=== PATIENT | male | born 1950 | race Caucasian/White ===

== ENCOUNTER 2019-08-16 08:10 | Outpatient (CLI) | payer MEDICARE, SELFPAY ==
--- NOTE | 2019-08-16 08:20 | MR_ITS ---
WS: [id number] MRI HEAD WITH CONTRAST TECHNIQUE: Sagittal T1, T2 axial, T2 axial FLAIR, axial susceptibility weighted imaging, axial diffus ion weighted images, and coronal T2 images were obtained. Pre and post-T1 axial and post T1 coronal i mages. ADC and FSPGR images. CLINICAL INFORMATION: FALL RISK;VERTIGO COMPARISON: CT 12 019 FINDINGS: No evidence of restricted diffusion to suggest acute ischemia. Ventricular system and basal cisterns are patent. Mild small vessel changes. Moderate parenchymal volume loss. Chronic lacunar infarcts lef t cerebellum. Normal vascular flow voids at the skull base. Paranasal sinuses are well aerated. Parti al opacification left mastoid air cells. Partially visualized T2 hyperintense heterogeneously enhancing mass in the right upper neck measuring 3.3 x 3.3 cm suspicious for neoplasm. Recommend further evaluation with contrast-enhanced neck CT. T his is deep and inferior to the parotid gland and only partially visualized. No hemosiderin on the susceptibly weighted images. Normal optic chiasm and pituitary infundibulum. No abnormal intracranial gadolinium enhancement. Normal visualized dural venous sinuses. Advanced atrop hy involving the temporal lobes and hippocampal formations. IMPRESSION: 1. Partially visualized T2 hyperintense heterogeneously enhancing mass in the right upper neck measu ring 3.3 x 3.3 cm suspicious for neoplasm. Recommend further evaluation with neck CT. This is deep an d inferior to the parotid gland. 2. No evidence of restricted diffusion to suggest acute ischemia. 3. Mild small vessel changes moderate parenchymal volume loss. 4. Chronic lacunar infarcts left cerebellum. 5. No abnormal intracranial enhancement. 6. 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
[2019-08-16 09:26] LABS: Blood Urea Nitrogen 17 mg/dL (8-23); Glomerular Filtration Rate 54.7 mL/min (90-130)
== END 2019-08-16 08:11 | disposition home or self-care (01) ==
PROVIDERS: Visit Provider Nurse Practitioner Family
DX: I63.81 Other cerebral infarction due to occlusion or stenosis of small artery (principal); G31.9 Degenerative disease of nervous system, unspecified; R42 Dizziness and giddiness; R22.1 Localized swelling, mass and lump, neck
CPT/HCPCS: 70553; 82565; 84520; A9579

== ENCOUNTER 2019-08-17 13:04 | Emergency (ER) | payer MEDICARE, SELFPAY ==
[2019-08-17] VITALS (111 sets, daily range): BP systolic 84–150; BP diastolic 54–119; PULSE 102–139; RESP 12–41; TEMP 36.4–36.9; O2SAT 79–100; BMI 26.6
--- NOTE | 2019-08-17 | CT_ITS ---
WS: [id number] CT scan of the head with IV contrast. Additional two-dimensional coronal and sagittal reconstruction was performed. MIP images were also performed. 08/17/2019 Clinical Data: EXPANDING NECK MASS R SIDE Comparison: None. DLP: 629.60 mGy-cm All CT scans at [facility] use at least one of these dose optimization techniques: automat ed exposure control; mA and/or kV adjustment per patient size (includes targeted exams where dose is matched to clinical indication); or iterative reconstruction. Findings: Ventricular system is moderately dilated without shift. No abnormal contrast enhancement of any struc ture occurs. No intracranial aneurysms are noted. There are no acute infarcts or enhancing masses. Th e intraorbital contents, sella turcica, and nasal sinuses, internal auditory canals and mastoid air c ells are unremarkable. Negative CT scan of the head with IV contrast. CT/CT angio head [id number] Impression:
--- NOTE | 2019-08-17 13:34 | ED_ITS ---
Entered by Portia Jones, acting as scribe for Andrea Beltran DO Documented by User: Andrea Beltran DO 08/21/19 06:56 HPI - Dizziness General: Chief Complaint: Dizziness Stated Complaint: dizzy, headache Time Seen by Provider: 08/17/19 13:50 Source: patient Mode of arrival: ambulatory Limitations: no limitations History of Present Illness: HPI Narrative: 69 yo m came to the er pov for dizziness and fall. Onset was yesterday. Pt states that yesterday he was trying to cut across a parking lot and went through a brush and tripped and fell and hit his neck. Pt has a mass that has grown on the side of his neck where he fell. PT states that it grew since this morning. Pt is denying any loc at this time. MD elicited complaint: dizziness Associated symptoms: Denies chest pain, chills, headache(s), malaise, nausea, nasal congestion, palpitations, syncope or vomiting Associated neuro symptoms: Deny confusion, difficulty swallowing or numbness in extremities Review of Systems Const: Reports: fatigue; Denies: chills or malaise Eyes: Denies: change in vision or blurry vision ENMT: Denies: nasal congestion Card: Denies: chest pain, palpitations or syncope Resp: Denies: shortness of breath, productive cough, non-productive cough or wheezing GI: Denies: nausea, vomiting or difficulty swallowing : Denies: flank pain, difficulty urinating, painful urination, urinary frequency, urinary urgency, urinary incontinence or blood in urine Musc: Denies: neck pain, back pain, extremity pain, extremity swelling, joint pain or joint swelling Skin/Breast: Denies: rash, itching or redness Neuro: Denies: headache, numbness in extremities or confusion Psych: Denies: anxiety, depression, loss of interest, visual hallucinations, auditory hallucinations, suicidal ideation or homicidal ideation Endo: Denies: excessive urination, excessive thirst, tired all the time or cold intolerance Angel/Lymph: Denies: easy bruising, easy bleeding, petechiae, enlarged lymph nodes or tender lymph nodes PFSH ED PFSH: Statuses (acute, chronic, etc) shown below reflect problem list status as previously entered and may not be historically accurate Social History Smoking and tobacco status: never smoked Physical Exam Const: COMMON NORMALS: average body habitus GENERAL APPEARANCE: cooperative, comfortable, well kempt, well developed and lethargic (reponds to questions but is not making fully coherent answers, disoriented) NUTRITIONAL APPEARANCE: obese ORIENTATION/CONSCIOUSNESS: Yes awake and Yes lethargic (reponds to questions but is not making fully coherent answers, disoriented) HENMT: COMMON NORMALS: normocephalic, head/scalp atraumatic, EAC's normal, TM's normal bilaterally, external nose normal, moist oral mucous membranes and oropharynx normal HEAD & SCALP: normocephalic and atraumatic NOSE: external nose normal EXTERNAL AUDITORY CANAL: EAC's normal TYMPANIC MEMBRANE: TM's normal bilaterally MOUTH: oral and palatal mucosa normal, lip normal and tongue normal THROAT: posterior oropharynx normal and tonsils normal Eye: COMMON NORMALS: PERRL, EOMs intact bilaterally, conjunctivae normal and no scleral icterus CONJUNCTIVA: Yes conjunctivae normal PUPIL: Yes PERRL Neck/C-Spine: COMMON NORMALS: no lymphadenopathy, no meningeal signs and thyroid normal; negative for full ROM GENERAL: Yes tender and Yes mass right (lateral within the sternocliedomastiod muscle - extends to the mastiod process. On palpation is 4 inches in length, 3 inches width, no overlying ecchymosis, no skin abrasions.) THYROID: thyroid normal Lymph: LYMPHATIC: no lymphadenopathy noted Resp: COMMON NORMALS: normal respiratory effort, no retractions, no use of accessory muscles and clear to auscultation bilaterally AUSCULTATION: clear to auscultation bilaterally Cardio: COMMON NORMALS: regular rate and regular rhythm RATE: regular rate RHYTHM: regular rhythm HEART SOUNDS: no murmurs GI: COMMON NORMALS: normal to inspection, nondistended, normoactive bowel sounds, soft to palpation and no hepatosplenomegaly PALPATION: Yes soft and Yes no hepatosplenomegaly : COMMON NORMALS: Yes no CVA tenderness BLADDER/KIDNEY EXAM: Yes no CVA tenderness Back/Pelvis: COMMON NORMALS: no CVA tenderness LUMBAR SPINE/LOWER BACK: Yes normal to inspection Extremity: COMMON NORMALS: no clubbing, cyanosis or edema, no calf tenderness and no pedal edema Neuro: SENSORIUM/ORIENTATION: Yes lethargic (reponds to questions but is not making fully coherent answers, disoriented) and Yes somnolent MENINGEAL SIGNS: Yes no meningeal signs MOTOR EXAM: no pronator drift Psych: APPEARANCE: Yes well kempt Skin: COMMON NORMALS: no rashes or lesions noted and skin turgor normal GENERAL SKIN EXAM: no rashes or lesions noted and turgor normal Course ED course: 08/19/19 1031 Assumed care again of this patient this morning. Reviewed the labs done this morning there is still slight improvement. I did call and talk to Dr. Domingo and asked her to see the patient again in the ER on rounds. Patient became tachycardic and found that he had not received a daily medications Dr. Domingo had ordered. Due to the setting here in the emergency room the medications are not coming across to the nurses as they would on the floor. Reviewed this with the nurses we will get him started back on medications particularly the nadolol. Repeat EKG showed a sinus tachycardia with a rate of [address] nonspecific changes. Patient's hematoma is largely unchanged on exam his chest clear he is tachycardic but without appre ciable murmur. I have also called Dr. Guo and talk to the chief of medicine. Unfortunately they are still not able to give us confirmation of an ICU bed. Discussed other options with her chief of medicine where he would be able to have his hepatic failure addressed they recommended [facility]. At this point he has been in the emergency room for 48 hours with been able to manage with the assistance of the hospitalist however he does need to get to definitive care. Unfortunately due to lack of available resources in the region this is become quite difficult. Consultations: Consultation #1: talked to [facility] - they will accept pt but they have no avaiable beds at this time. 08/18/19 - Pt still waiting in the ER for a bed at [facility]. Labs repeated. Will ask hospitlaist to consult, Time: 15:07 Vital Signs: Vital signs: Vital Signs Temperature 98.6 F 08/19/19 06:30 Pulse Rate 94 08/20/19 08:03 Respiratory Rate 16 08/20/19 08:03 Blood Pressure 168/120 08/20/19 08:03 Pulse Oximetry 97 08/20/19 08:03 MDM - Dizziness Lab Data: Labs: Lab Results 08/17/19 08/17/19 08/17/19 Range/Units 13:49 13:49 13:49 WBC 22.2 H (4.0-10.0) 10^3/ uL RBC 5.04 (4.1-5.3) 10^6/u L Hgb 16.1 (11.7-16.6) g/dL Hct 49.4 (42.0-52.0) % MCV 98.0 H (80-94) fL MCH 31.9 (28.0-34.0) pg MCHC 32.6 (30.0-36.0) g/dL RDW 15.0 (12.1-15.1) % Plt Count 310 (130-400) 10^3/c mm MPV 9.3 (7.4-10.4) fL Neut % (Auto) 75.7 % Lymph % (Auto) 4.3 % [place] % (Auto) 1.8 % Eos % (Auto) 0.0 % Baso % (Auto) 0.4 % Neut # (Auto) 16.9 H (1.8-7.7) 10^3/u L Lymph # (Auto) 1.0 (0.8-4.8) 10^3/u L [place] # (Auto) 0.4 (0.2-0.9) 10^3/u L Eos # (Auto) 0.0 (0.0-0.8) 10^3/u L Baso # (Auto) 0.1 (0.0-0.1) 10^3/u L Nucleated RBC % (a uto) 0 % Total Counted (0-100) Segmented Neutroph ils % Band Neutrophils % Lymphocytes (Manua l) % Monocytes (Manual) % Absolute Monocytes (0.1-0.6) 10^3/c mm Nucleated RBCs # 0.0 /100WBC Platelet Estimate (Normal) PT 32.90 H (10.5-13.3) SECO NDS INR 3.07 H (0.8-1.2) APTT 34.7 (23.9-36.7) SECO NDS Specimen Type Sample Site ABG pH (7.35-7.45) ABG pCO2 (35-45) mmHg ABG pO2 (80.0-100.0) mmH g ABG HCO3 (22-26) mmol/L ABG Base Excess (-2.0-2.0) mmol/ L Rudy Test Hematocrit (42-52) % Hgb O2 Saturation (95-100) % Carboxyhemoglobin (0.4-20.1) %THgb Methemoglobin (0.4-1.5) % Total Hemoglobin (14-18) g/dL [employer] ID Sodium 132 L (136-145) mmol/L Potassium 5.4 H (3.5-5.1) mmol/L Chloride 95 L (98-107) mmol/L Carbon Dioxide 16 L (22-29) mmol/L Anion Gap 26.4 H (5-19) BUN 29 H (8-23) mg/dL Creatinine 2.2 H (0.7-1.2) mg/dL GFR Calculation 29.8 L (90-130) mL/min Glucose 98 (74-106) mg/dL POC Glucose (70-110) mg/dL Lactate (0.5-2.2) mmol/L Calcium 10.1 (8.8-10.2) mg/Dl Phosphorus (2.5-4.5) mg/dL Magnesium (1.7-2.3) mg/dL Total Bilirubin 2.3 H (0.15-1.2) mg/dL AST 3162 H (0-40) U/L ALT 3118 H (0-41) U/L Alkaline Phosphata se 228 H (40-130) IU/L Ammonia (16-60) umol/L Troponin I 6 Hour (0-15) ng/L Troponin I Hi Sens Del (0-12) ng/L Troponin T Baselin e (0-15) ng/mL Troponin T 120 Min [place] (0-15) ng/mL Delta Troponin T (0-10) ABS# Total Protein 7.2 (6.6-8.7) g/dL Albumin 3.5 (3.5-5.2) g/dL Globulin 3.7 (1.3-4.6) g/dL Urine Color (Yellow) Urine Appearance (CLEAR) Urine pH (5-7) Ur Specific Gravit y (1.005-1.030) Urine Protein (Negative) Urine Glucose (UA) (Normal) Urine Ketones (Negative) Urine Occult Blood (Negative) Urine Nitrate (Negative) Urine Bilirubin (NEGATIVE) Urine Urobilinogen (Negative) mg/dL Ur Leukocyte Carol ase (Negative) Urine RBC (0-2) /hpf Urine WBC (0-5) /hpf Ur Squamous Epith Cells (0-5) Urine Bacteria (NONE) Hepatitis A IgM Ab (Nonreactive) Hep Bs Antibody (0-8.5) Hep B Core Total A b (Nonreactive) Hepatitis C Antibo dy (Nonreactive) Blood Type 08/17/19 08/17/19 08/17/19 Range/Units 13:49 13:49 13:49 WBC (4.0-10.0) 10^3/ uL RBC (4.1-5.3) 10^6/u L Hgb (11.7-16.6) g/dL Hct (42.0-52.0) % MCV (80-94) fL MCH (28.0-34.0) pg MCHC (30.0-36.0) g/dL RDW (12.1-15.1) % Plt Count (130-400) 10^3/c mm MPV (7.4-10.4) fL Neut % (Auto) % Lymph % (Auto) % [place] % (Auto) % Eos % (Auto) % Baso % (Auto) % Neut # (Auto) (1.8-7.7) 10^3/u L Lymph # (Auto) (0.8-4.8) 10^3/u L [place] # (Auto) (0.2-0.9) 10^3/u L Eos # (Auto) (0.0-0.8) 10^3/u L Baso # (Auto) (0.0-0.1) 10^3/u L Nucleated RBC % (a uto) % Total Counted (0-100) Segmented Neutroph ils % Band Neutrophils % Lymphocytes (Manua l) % Monocytes (Manual) % Absolute Monocytes (0.1-0.6) 10^3/c mm Nucleated RBCs # /100WBC Platelet Estimate (Normal) PT (10.5-13.3) SECO NDS INR (0.8-1.2) APTT (23.9-36.7) SECO NDS Specimen Type Sample Site ABG pH (7.35-7.45) ABG pCO2 (35-45) mmHg ABG pO2 (80.0-100.0) mmH g ABG HCO3 (22-26) mmol/L ABG Base Excess (-2.0-2.0) mmol/ L Rudy Test Hematocrit (42-52) % Hgb O2 Saturation (95-100) % Carboxyhemoglobin (0.4-20.1) %THgb Methemoglobin (0.4-1.5) % Total Hemoglobin (14-18) g/dL [employer] ID Sodium (136-145) mmol/L Potassium (3.5-5.1) mmol/L Chloride (98-107) mmol/L Carbon Dioxide (22-29) mmol/L Anion Gap (5-19) BUN (8-23) mg/dL Creatinine (0.7-1.2) mg/dL GFR Calculation (90-130) mL/min Glucose (74-106) mg/dL POC Glucose (70-110) mg/dL Lactate 8.5 H* (0.5-2.2) mmol/L Calcium (8.8-10.2) mg/Dl Phosphorus (2.5-4.5) mg/dL Magnesium (1.7-2.3) mg/dL Total Bilirubin (0.15-1.2) mg/dL AST (0-40) U/L ALT (0-41) U/L Alkaline Phosphata se (40-130) IU/L Ammonia (16-60) umol/L Troponin I 6 Hour (0-15) ng/L Troponin I Hi Sens Del (0-12) ng/L Troponin T Baselin e 11 (0-15) ng/mL Troponin T 120 Min [place] (0-15) ng/mL Delta Troponin T (0-10) ABS# Total Protein (6.6-8.7) g/dL Albumin (3.5-5.2) g/dL Globulin (1.3-4.6) g/dL Urine Color (Yellow) Urine Appearance (CLEAR) Urine pH (5-7) Ur Specific Gravit y (1.005-1.030) Urine Protein (Negative) Urine Glucose (UA) (Normal) Urine Ketones (Negative) Urine Occult Blood (Negative) Urine Nitrate (Negative) Urine Bilirubin (NEGATIVE) Urine Urobilinogen (Negative) mg/dL Ur Leukocyte Carol ase (Negative) Urine RBC (0-2) /hpf Urine WBC (0-5) /hpf Ur Squamous Epith Cells (0-5) Urine Bacteria (NONE) Hepatitis A IgM Ab Non-reactive (Nonreactive) Hep Bs Antibody 3.5 (0-8.5) Hep B Core Total A b Reactive (Nonreactive) Hepatitis C Antibo dy Non-reactive (Nonreactive) Blood Type 08/17/19 08/17/19 08/17/19 Range/Units 15:37 15:54 16:36 WBC (4.0-10.0) 10^3/ uL RBC (4.1-5.3) 10^6/u L Hgb (11.7-16.6) g/dL Hct (42.0-52.0) % MCV (80-94) fL MCH (28.0-34.0) pg MCHC (30.0-36.0) g/dL RDW (12.1-15.1) % Plt Count (130-400) 10^3/c mm MPV (7.4-10.4) fL Neut % (Auto) % Lymph % (Auto) % [place] % (Auto) % Eos % (Auto) % Baso % (Auto) % Neut # (Auto) (1.8-7.7) 10^3/u L Lymph # (Auto) (0.8-4.8) 10^3/u L [place] # (Auto) (0.2-0.9) 10^3/u L Eos # (Auto) (0.0-0.8) 10^3/u L Baso # (Auto) (0.0-0.1) 10^3/u L Nucleated RBC % (a uto) % Total Counted (0-100) Segmented Neutroph ils % Band Neutrophils % Lymphocytes (Manua l) % Monocytes (Manual) % Absolute Monocytes (0.1-0.6) 10^3/c mm Nucleated RBCs # /100WBC Platelet Estimate (Normal) PT (10.5-13.3) SECO NDS INR (0.8-1.2) APTT (23.9-36.7) SECO NDS Specimen Type Sample Site ABG pH (7.35-7.45) ABG pCO2 (35-45) mmHg ABG pO2 (80.0-100.0) mmH g ABG HCO3 (22-26) mmol/L ABG Base Excess (-2.0-2.0) mmol/ L Rudy Test Hematocrit (42-52) % Hgb O2 Saturation (95-100) % Carboxyhemoglobin (0.4-20.1) %THgb Methemoglobin (0.4-1.5) % Total Hemoglobin (14-18) g/dL [employer] ID Sodium (136-145) mmol/L Potassium (3.5-5.1) mmol/L Chloride (98-107) mmol/L Carbon Dioxide (22-29) mmol/L Anion Gap (5-19) BUN (8-23) mg/dL Creatinine (0.7-1.2) mg/dL GFR Calculation (90-130) mL/min Glucose (74-106) mg/dL POC Glucose (70-110) mg/dL Lactate (0.5-2.2) mmol/L Calcium (8.8-10.2) mg/Dl Phosphorus (2.5-4.5) mg/dL Magnesium (1.7-2.3) mg/dL Total Bilirubin (0.15-1.2) mg/dL AST (0-40) U/L ALT (0-41) U/L Alkaline Phosphata se (40-130) IU/L Ammonia 108 H (16-60) umol/L Troponin I 6 Hour (0-15) ng/L Troponin I Hi Sens Del (0-12) ng/L Troponin T Baselin e (0-15) ng/mL Troponin T 120 [place] 10.56 (0-15) ng/mL Delta Troponin T -0.44 L (0-10) ABS# Total Protein (6.6-8.7) g/dL Albumin (3.5-5.2) g/dL Globulin (1.3-4.6) g/dL Urine Color (Yellow) Urine Appearance (CLEAR) Urine pH (5-7) Ur Specific Gravit y (1.005-1.030) Urine Protein (Negative) Urine Glucose (UA) (Normal) Urine Ketones (Negative) Urine Occult Blood (Negative) Urine Nitrate (Negative) Urine Bilirubin (NEGATIVE) Urine Urobilinogen (Negative) mg/dL Ur Leukocyte Carol ase (Negative) Urine RBC (0-2) /hpf Urine WBC (0-5) /hpf Ur Squamous Epith Cells (0-5) Urine Bacteria (NONE) Hepatitis A IgM Ab (Nonreactive) Hep Bs Antibody (0-8.5) Hep B Core Total A b (Nonreactive) Hepatitis C Antibo dy (Nonreactive) Blood Type O Negative 08/17/19 08/18/19 08/18/19 Range/Units 19:24 06:33 06:47 WBC 10.6 H (4.0-10.0) 10^3/ uL RBC 4.16 (4.1-5.3) 10^6/u L Hgb 13.2 (11.7-16.6) g/dL Hct 40.3 L (42.0-52.0) % MCV 96.9 H (80-94) fL MCH 31.7 (28.0-34.0) pg MCHC 32.8 (30.0-36.0) g/dL RDW 15.3 H (12.1-15.1) % Plt Count 246 (130-400) 10^3/c mm MPV 9.1 (7.4-10.4) fL Neut % (Auto) 54.2 % Lymph % (Auto) 9.6 % [place] % (Auto) 3.8 % Eos % (Auto) 0.6 % Baso % (Auto) 0.6 % Neut # (Auto) 5.8 (1.8-7.7) 10^3/u L Lymph # (Auto) 1.0 (0.8-4.8) 10^3/u L [place] # (Auto) 0.4 (0.2-0.9) 10^3/u L Eos # (Auto) 0.1 (0.0-0.8) 10^3/u L Baso # (Auto) 0.1 (0.0-0.1) 10^3/u L Nucleated RBC % (a uto) 0 % Total Counted (0-100) Segmented Neutroph ils % Band Neutrophils % Lymphocytes (Man[place] l) % Monocytes (Manual) % Absolute Monocytes (0.1-0.6) 10^3/c mm Nucleated RBCs # 0.0 /100WBC Platelet Estimate (Normal) PT (10.5-13.3) SECO NDS INR (0.8-1.2) APTT (23.9-36.7) SECO NDS Specimen Type Arterial Sample Site Radial, left ABG pH 7.43 (7.35-7.45) ABG pCO2 31.6 L (35-45) mmHg ABG pO2 75.5 L (80.0-100.0) mmH g ABG HCO3 20.9 L (22-26) mmol/L ABG Base Excess -2.5 L (-2.0-2.0) mmol/ L Rudy Test Pos Hematocrit 44.1 (42-52) % Hgb O2 Saturation 93.9 L (95-100) % Carboxyhemoglobin 0.6 (0.4-20.1) %THgb Methemoglobin 0.8 (0.4-1.5) % Total Hemoglobin 14.4 (14-18) g/dL [employer] ID harkr Sodium (136-145) mmol/L Potassium (3.5-5.1) mmol/L Chloride (98-107) mmol/L Carbon Dioxide (22-29) mmol/L Anion Gap (5-19) BUN (8-23) mg/dL Creatinine (0.7-1.2) mg/dL GFR Calculation (90-130) mL/min Glucose (74-106) mg/dL POC Glucose (70-110) mg/dL Lactate (0.5-2.2) mmol/L Calcium (8.8-10.2) mg/Dl Phosphorus (2.5-4.5) mg/dL Magnesium (1.7-2.3) mg/dL Total Bilirubin (0.15-1.2) mg/dL AST (0-40) U/L ALT (0-41) U/L Alkaline Phosphata se (40-130) IU/L Ammonia (16-60) umol/L Troponin I 6 Hour 10.86 (0-15) ng/L Troponin I Hi Sens Del (0-12) ng/L Troponin T Baselin e (0-15) ng/mL Troponin T 120 [place] (0-15) ng/mL Delta Troponin T (0-10) ABS# Total Protein (6.6-8.7) g/dL Albumin (3.5-5.2) g/dL Globulin (1.3-4.6) g/dL Urine Color (Yellow) Urine Appearance (CLEAR) Urine pH (5-7) Ur Specific Gravit y (1.005-1.030) Urine Protein (Negative) Urine Glucose (UA) (Normal) Urine Ketones (Negative) Urine Occult Blood (Negative) Urine Nitrate (Negative) Urine Bilirubin (NEGATIVE) Urine Urobilinogen (Negative) mg/dL Ur Leukocyte Carol ase (Negative) Urine RBC (0-2) /hpf Urine WBC (0-5) /hpf Ur Squamous Epith Cells (0-5) Urine Bacteria (NONE) Hepatitis A IgM Ab (Nonreactive) Hep Bs Antibody (0-8.5) Hep B Core Total A b (Nonreactive) Hepatitis C Antibo dy (Nonreactive) Blood Type 08/18/19 08/18/19 08/18/19 Range/Units 06:47 06:47 06:47 WBC (4.0-10.0) 10^3/ uL RBC (4.1-5.3) 10^6/u L Hgb (11.7-16.6) g/dL Hct (42.0-52.0) % MCV (80-94) fL MCH (28.0-34.0) pg MCHC (30.0-36.0) g/dL RDW (12.1-15.1) % Plt Count (130-400) 10^3/c mm MPV (7.4-10.4) fL Neut % (Auto) % Lymph % (Auto) % [place] % (Auto) % Eos % (Auto) % Baso % (Auto) % Neut # (Auto) (1.8-7.7) 10^3/u L Lymph # (Auto) (0.8-4.8) 10^3/u L [place] # (Auto) (0.2-0.9) 10^3/u L Eos # (Auto) (0.0-0.8) 10^3/u L Baso # (Auto) (0.0-0.1) 10^3/u L Nucleated RBC % (a uto) % Total Counted (0-100) Segmented Neutroph ils % Band Neutrophils % Lymphocytes (Man[place] l) % Monocytes (Manual) % Absolute Monocytes (0.1-0.6) 10^3/c mm Nucleated RBCs # /100WBC Platelet Estimate (Normal) PT (10.5-13.3) SECO NDS INR (0.8-1.2) APTT (23.9-36.7) SECO NDS Specimen Type Sample Site ABG pH (7.35-7.45) ABG pCO2 (35-45) mmHg ABG pO2 (80.0-100.0) mmH g ABG HCO3 (22-26) mmol/L ABG Base Excess (-2.0-2.0) mmol/ L Rudy Test Hematocrit (42-52) % Hgb O2 Saturation (95-100) % Carboxyhemoglobin (0.4-20.1) %THgb Methemoglobin (0.4-1.5) % Total Hemoglobin (14-18) g/dL [employer] ID Sodium 137 (136-145) mmol/L Potassium 4.4 (3.5-5.1) mmol/L Chloride 105 (98-107) mmol/L Carbon Dioxide 19 L (22-29) mmol/L Anion Gap 17.4 (5-19) BUN 38 H (8-23) mg/dL Creatinine 1.8 H (0.7-1.2) mg/dL GFR Calculation 37.6 L (90-130) mL/min Glucose 66 L (74-106) mg/dL POC Glucose (70-110) mg/dL Lactate 3.2 H (0.5-2.2) mmol/L Calcium 9.4 (8.8-10.2) mg/Dl Phosphorus 3.3 (2.5-4.5) mg/dL Magnesium 2.1 (1.7-2.3) mg/dL Total Bilirubin 2.4 H (0.15-1.2) mg/dL AST 1015 H (0-40) U/L ALT 1632 H (0-41) U/L Alkaline Phosphata se 193 H (40-130) IU/L Ammonia 109 H (16-60) umol/L Troponin I 6 Hour (0-15) ng/L Troponin I Hi Sens Del (0-12) ng/L Troponin T Baselin e (0-15) ng/mL Troponin T 120 [place] (0-15) ng/mL Delta Troponin T (0-10) ABS# Total Protein 6.2 L (6.6-8.7) g/dL Albumin 3.0 L (3.5-5.2) g/dL Globulin 3.2 (1.3-4.6) g/dL Urine Color (Yellow) Urine Appearance (CLEAR) Urine pH (5-7) Ur Specific Gravit y (1.005-1.030) Urine Protein (Negative) Urine Glucose (UA) (Normal) Urine Ketones (Negative) Urine Occult Blood (Negative) Urine Nitrate (Negative) Urine Bilirubin (NEGATIVE) Urine Urobilinogen (Negative) mg/dL Ur Leukocyte Carol ase (Negative) Urine RBC (0-2) /hpf Urine WBC (0-5) /hpf Ur Squamous Epith Cells (0-5) Urine Bacteria (NONE) Hepatitis A IgM Ab (Nonreactive) Hep Bs Antibody (0-8.5) Hep B Core Total A b (Nonreactive) Hepatitis C Antibo dy (Nonreactive) Blood Type 08/18/19 08/18/19 08/18/19 Range/Units 06:47 08:00 20:22 WBC (4.0-10.0) 10^3/ uL RBC (4.1-5.3) 10^6/u L Hgb (11.7-16.6) g/dL Hct (42.0-52.0) % MCV (80-94) fL MCH (28.0-34.0) pg MCHC (30.0-36.0) g/dL RDW (12.1-15.1) % Plt Count (130-400) 10^3/c mm MPV (7.4-10.4) fL Neut % (Auto) % Lymph % (Auto) % [place] % (Auto) % Eos % (Auto) % Baso % (Auto) % Neut # (Auto) (1.8-7.7) 10^3/u L Lymph # (Auto) (0.8-4.8) 10^3/u L [place] # (Auto) (0.2-0.9) 10^3/u L Eos # (Auto) (0.0-0.8) 10^3/u L Baso # (Auto) (0.0-0.1) 10^3/u L Nucleated RBC % (a uto) % Total Counted (0-100) Segmented Neutroph ils % Band Neutrophils % Lymphocytes (Man[place] l) % Monocytes (Manual) % Absolute Monocytes (0.1-0.6) 10^3/c mm Nucleated RBCs # /100WBC Platelet Estimate (Normal) PT 28.00 H (10.5-13.3) SECO NDS INR 2.50 H (0.8-1.2) APTT 35.1 (23.9-36.7) SECO NDS Specimen Type Sample Site ABG pH (7.35-7.45) ABG pCO2 (35-45) mmHg ABG pO2 (80.0-100.0) mmH g ABG HCO3 (22-26) mmol/L ABG Base Excess (-2.0-2.0) mmol/ L Rudy Test Hematocrit (42-52) % Hgb O2 Saturation (95-100) % Carboxyhemoglobin (0.4-20.1) %THgb Methemoglobin (0.4-1.5) % Total Hemoglobin (14-18) g/dL [employer] ID Sodium (136-145) mmol/L Potassium (3.5-5.1) mmol/L Chloride (98-107) mmol/L Carbon Dioxide (22-29) mmol/L Anion Gap (5-19) BUN (8-23) mg/dL Creatinine (0.7-1.2) mg/dL GFR Calculation (90-130) mL/min Glucose (74-106) mg/dL POC Glucose 101 (70-110) mg/dL Lactate (0.5-2.2) mmol/L Calcium (8.8-10.2) mg/Dl Phosphorus (2.5-4.5) mg/dL Magnesium (1.7-2.3) mg/dL Total Bilirubin (0.15-1.2) mg/dL AST (0-40) U/L ALT (0-41) U/L Alkaline Phosphata se (40-130) IU/L Ammonia (16-60) umol/L Troponin I 6 Hour (0-15) ng/L Troponin I Hi Sens Del (0-12) ng/L Troponin T Baselin e (0-15) ng/mL Troponin T 120 Min [place] (0-15) ng/mL Delta Troponin T (0-10) ABS# Total Protein (6.6-8.7) g/dL Albumin (3.5-5.2) g/dL Globulin (1.3-4.6) g/dL Urine Color Yellow (Yellow) Urine Appearance Clear (CLEAR) Urine pH 5.0 (5-7) Ur Specific Gravit y 1.010 (1.005-1.030) Urine Protein Trace (Negative) Urine Glucose (UA) Norm (Normal) Urine Ketones Negative (Negative) Urine Occult Blood Neg (Negative) Urine Nitrate Negative (Negative) Urine Bilirubin 1+ H (NEGATIVE) Urine Urobilinogen Norm (Negative) mg/dL Ur Leukocyte Carol ase Negative (Negative) Urine RBC Rare (0-2) /hpf Urine WBC None (0-5) /hpf Ur Squamous Epith Cells None (0-5) Urine Bacteria 1+ H (NONE) Hepatitis A IgM Ab (Nonreactive) Hep Bs Antibody (0-8.5) Hep B Core Total A b (Nonreactive) Hepatitis C Antibo dy (Nonreactive) Blood Type 08/19/19 08/19/19 08/19/19 Range/Units 02:40 02:40 02:40 WBC 12.7 H (4.0-10.0) 10^3/ uL RBC 4.20 (4.1-5.3) 10^6/u L Hgb 13.5 (11.7-16.6) g/dL Hct 41.7 L (42.0-52.0) % MCV 99.3 H (80-94) fL MCH 32.1 (28.0-34.0) pg MCHC 32.4 (30.0-36.0) g/dL RDW 15.2 H (12.1-15.1) % Plt Count 213 (130-400) 10^3/c mm MPV 9.0 (7.4-10.4) fL Neut % (Auto) % Lymph % (Auto) % [place] % (Auto) % Eos % (Auto) % Baso % (Auto) % Neut # (Auto) (1.8-7.7) 10^3/u L Lymph # (Auto) (0.8-4.8) 10^3/u L [place] # (Auto) (0.2-0.9) 10^3/u L Eos # (Auto) (0.0-0.8) 10^3/u L Baso # (Auto) (0.0-0.1) 10^3/u L Nucleated RBC % (a uto) % Total Counted 100 (0-100) Segmented Neutroph ils 70 % Band Neutrophils 4.0 % Lymphocytes ([place]) 24 % Monocytes (Manual) 2.0 % Absolute Monocytes 0.3 (0.1-0.6) 10^3/c mm Nucleated RBCs # /100WBC Platelet Estimate Decreased (Normal) PT 26.30 H (10.5-13.3) SECO NDS INR 2.32 H (0.8-1.2) APTT (23.9-36.7) SECO NDS Specimen Type Sample Site ABG pH (7.35-7.45) ABG pCO2 (35-45) mmHg ABG pO2 (80.0-100.0) mmH g ABG HCO3 (22-26) mmol/L ABG Base Excess (-2.0-2.0) mmol/ L Rudy Test Hematocrit (42-52) % Hgb O2 Saturation (95-100) % Carboxyhemoglobin (0.4-20.1) %THgb Methemoglobin (0.4-1.5) % Total Hemoglobin (14-18) g/dL [employer] ID Sodium 136 (136-145) mmol/L Potassium 3.9 (3.5-5.1) mmol/L Chloride 105 (98-107) mmol/L Carbon Dioxide 20 L (22-29) mmol/L Anion Gap 14.9 (5-19) BUN 49 H (8-23) mg/dL Creatinine 1.4 H (0.7-1.2) mg/dL GFR Calculation 50.2 L (90-130) mL/min Glucose 93 (74-106) mg/dL POC Glucose (70-110) mg/dL Lactate (0.5-2.2) mmol/L Calcium 9.4 (8.8-10.2) mg/Dl Phosphorus (2.5-4.5) mg/dL Magnesium (1.7-2.3) mg/dL Total Bilirubin 2.0 H (0.15-1.2) mg/dL AST 299 H (0-40) U/L ALT 1074 H (0-41) U/L Alkaline Phosphata se 270 H (40-130) IU/L Ammonia (16-60) umol/L Troponin I 6 Hour (0-15) ng/L Troponin I Hi Sens Del (0-12) ng/L Troponin T Baselin e (0-15) ng/mL Troponin T 120 Min [place] (0-15) ng/mL Delta Troponin T (0-10) ABS# Total Protein 6.6 (6.6-8.7) g/dL Albumin 2.7 L (3.5-5.2) g/dL Globulin 3.9 (1.3-4.6) g/dL Urine Color (Yellow) Urine Appearance (CLEAR) Urine pH (5-7) Ur Specific Gravit y (1.005-1.030) Urine Protein (Negative) Urine Glucose (UA) (Normal) Urine Ketones (Negative) Urine Occult Blood (Negative) Urine Nitrate (Negative) Urine Bilirubin (NEGATIVE) Urine Urobilinogen (Negative) mg/dL Ur Leukocyte Carol ase (Negative) Urine RBC (0-2) /hpf Urine WBC (0-5) /hpf Ur Squamous Epith Cells (0-5) Urine Bacteria (NONE) Hepatitis A IgM Ab (Nonreactive) Hep Bs Antibody (0-8.5) Hep B Core Total A b (Nonreactive) Hepatitis C Antibo dy (Nonreactive) Blood Type 08/19/19 08/19/19 08/19/19 Range/Units 02:40 10:18 12:21 WBC (4.0-10.0) 10^3/ uL RBC (4.1-5.3) 10^6/u L Hgb (11.7-16.6) g/dL Hct (42.0-52.0) % MCV (80-94) fL MCH (28.0-34.0) pg MCHC (30.0-36.0) g/dL RDW (12.1-15.1) % Plt Count (130-400) 10^3/c mm MPV (7.4-10.4) fL Neut % (Auto) % Lymph % (Auto) % [place] % (Auto) % Eos % (Auto) % Baso % (Auto) % Neut # (Auto) (1.8-7.7) 10^3/u L Lymph # (Auto) (0.8-4.8) 10^3/u L [place] # (Auto) (0.2-0.9) 10^3/u L Eos # (Auto) (0.0-0.8) 10^3/u L Baso # (Auto) (0.0-0.1) 10^3/u L Nucleated RBC % (a uto) % Total Counted (0-100) Segmented Neutroph ils % Band Neutrophils % Lymphocytes (Manua l) % Monocytes (Manual) % Absolute Monocytes (0.1-0.6) 10^3/c mm Nucleated RBCs # /100WBC Platelet Estimate (Normal) PT (10.5-13.3) SECO NDS INR (0.8-1.2) APTT (23.9-36.7) SECO NDS Specimen Type Sample Site ABG pH (7.35-7.45) ABG pCO2 (35-45) mmHg ABG pO2 (80.0-100.0) mmH g ABG HCO3 (22-26) mmol/L ABG Base Excess (-2.0-2.0) mmol/ L Rudy Test Hematocrit (42-52) % Hgb O2 Saturation (95-100) % Carboxyhemoglobin (0.4-20.1) %THgb Methemoglobin (0.4-1.5) % Total Hemoglobin (14-18) g/dL [employer] ID Sodium (136-145) mmol/L Potassium (3.5-5.1) mmol/L Chloride (98-107) mmol/L Carbon Dioxide (22-29) mmol/L Anion Gap (5-19) BUN (8-23) mg/dL Creatinine (0.7-1.2) mg/dL GFR Calculation (90-130) mL/min Glucose (74-106) mg/dL POC Glucose (70-110) mg/dL Lactate (0.5-2.2) mmol/L Calcium (8.8-10.2) mg/Dl Phosphorus (2.5-4.5) mg/dL Magnesium (1.7-2.3) mg/dL Total Bilirubin (0.15-1.2) mg/dL AST (0-40) U/L ALT (0-41) U/L Alkaline Phosphata se (40-130) IU/L Ammonia 96 H (16-60) umol/L Troponin I 6 Hour (0-15) ng/L Troponin I Hi Sens Del (0-12) ng/L Troponin T Baselin e 14 (0-15) ng/mL Troponin T 120 [place] 14.67 (0-15) ng/mL Delta Troponin T 0.67 (0-10) ABS# Total Protein (6.6-8.7) g/dL Albumin (3.5-5.2) g/dL Globulin (1.3-4.6) g/dL Urine Color (Yellow) Urine Appearance (CLEAR) Urine pH (5-7) Ur Specific Gravit y (1.005-1.030) Urine Protein (Negative) Urine Glucose (UA) (Normal) Urine Ketones (Negative) Urine Occult Blood (Negative) Urine Nitrate (Negative) Urine Bilirubin (NEGATIVE) Urine Urobilinogen (Negative) mg/dL Ur Leukocyte Carol ase (Negative) Urine RBC (0-2) /hpf Urine WBC (0-5) /hpf Ur Squamous Epith Cells (0-5) Urine Bacteria (NONE) Hepatitis A IgM Ab (Nonreactive) Hep Bs Antibody (0-8.5) Hep B Core Total A b (Nonreactive) Hepatitis C Antibo dy (Nonreactive) Blood Type 08/19/19 Range/Units 16:15 WBC (4.0-10.0) 10^3/ uL RBC (4.1-5.3) 10^6/u L Hgb (11.7-16.6) g/dL Hct (42.0-52.0) % MCV (80-94) fL MCH (28.0-34.0) pg MCHC (30.0-36.0) g/dL RDW (12.1-15.1) % Plt Count (130-400) 10^3/c mm MPV (7.4-10.4) fL Neut % (Auto) % Lymph % (Auto) % [place] % (Auto) % Eos % (Auto) % Baso % (Auto) % Neut # (Auto) (1.8-7.7) 10^3/u L Lymph # (Auto) (0.8-4.8) 10^3/u L [place] # (Auto) (0.2-0.9) 10^3/u L Eos # (Auto) (0.0-0.8) 10^3/u L Baso # (Auto) (0.0-0.1) 10^3/u L Nucleated RBC % (a uto) % Total Counted (0-100) Segmented Neutroph ils % Band Neutrophils % Lymphocytes (Manua l) % Monocytes (Manual) % Absolute Monocytes (0.1-0.6) 10^3/c mm Nucleated RBCs # /100WBC Platelet Estimate (Normal) PT (10.5-13.3) SECO NDS INR (0.8-1.2) APTT (23.9-36.7) SECO NDS Specimen Type Sample Site ABG pH (7.35-7.45) ABG pCO2 (35-45) mmHg ABG pO2 (80.0-100.0) mmH g ABG HCO3 (22-26) mmol/L ABG Base Excess (-2.0-2.0) mmol/ L Rudy Test Hematocrit (42-52) % Hgb O2 Saturation (95-100) % Carboxyhemoglobin (0.4-20.1) %THgb Methemoglobin (0.4-1.5) % Total Hemoglobin (14-18) g/dL [employer] ID Sodium (136-145) mmol/L Potassium (3.5-5.1) mmol/L Chloride (98-107) mmol/L Carbon Dioxide (22-29) mmol/L Anion Gap (5-19) BUN (8-23) mg/dL Creatinine (0.7-1.2) mg/dL GFR Calculation (90-130) mL/min Glucose (74-106) mg/dL POC Glucose (70-110) mg/dL Lactate (0.5-2.2) mmol/L Calcium (8.8-10.2) mg/Dl Phosphorus (2.5-4.5) mg/dL Magnesium (1.7-2.3) mg/dL Total Bilirubin (0.15-1.2) mg/dL AST (0-40) U/L ALT (0-41) U/L Alkaline Phosphata se (40-130) IU/L Ammonia (16-60) umol/L Troponin I 6 Hour 12.79 (0-15) ng/L Troponin I Hi Sens Del -1.21 L (0-12) ng/L Troponin T Baselin e (0-15) ng/mL Troponin T 120 [place] (0-15) ng/mL Delta Troponin T (0-10) ABS# Total Protein (6.6-8.7) g/dL Albumin (3.5-5.2) g/dL Globulin (1.3-4.6) g/dL Urine Color (Yellow) Urine Appearance (CLEAR) Urine pH (5-7) Ur Specific Gravit y (1.005-1.030) Urine Protein (Negative) Urine Glucose (UA) (Normal) Urine Ketones (Negative) Urine Occult Blood (Negative) Urine Nitrate (Negative) Urine Bilirubin (NEGATIVE) Urine Urobilinogen (Negative) mg/dL Ur Leukocyte Carol ase (Negative) Urine RBC (0-2) /hpf Urine WBC (0-5) /hpf Ur Squamous Epith Cells (0-5) Urine Bacteria (NONE) Hepatitis A IgM Ab (Nonreactive) Hep Bs Antibody (0-8.5) Hep B Core Total A b (Nonreactive) Hepatitis C Antibo dy (Nonreactive) Blood Type Imaging Data^: Other CT: Radiologist's impression: [place] [address] CT Scan Report Signed Patient: Canelo Lara AMR#: [id number] : 1950Acct:[id number] Age/Sex: 69 / MADM Date: 08/17/19 Loc: ER Attending Dr: Ordering Physician: Andrea Beltran DO Date of Service: 08/17/19 Procedure(s): CT angio neck 18808 Accession Number(s): [id number] Report Number: [id number] WS: [id number] CT scan of the neck. Additional two-dimensional coronal and sagittal reconstruction was performed. MIP images were also performed. 08/17/2019 Clinical Data: expanding neck mass R side neck Comparison: None. DLP: 2098.13 mGy-cm All CT scans at [facility] use at least one of these dose optimization techniques: automated exposure control; mA and/or kV adjustment per patient size (includes targeted exams where dose is matched to clinical indication); or iterative reconstruction. Findings: There is a soft tissue mass in the right side of the neck with the approximate measurements of 2.85 x 5.0 x 5.85 in width, height and AP diameter respectively. With a history of injury this could represent a hematoma. There is no calcifi cation associated with it. No extravasation from the adjacent arteries is noted. There is calcification at the origins of both internal carotid arteries. No lymphadenopathy is present. 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 No prevertebral soft tissue swelling is seen. The left side of the neck is normal. The oropharynx, hypopharynx and trachea are all normal. The vallecula is unremarkable. The base of the tongue is normal. The larynx is normal. The base of the skull shows no erosions. The intraorbital contents, maxillary sinuses, mandible and maxilla are all unremarkable. The lung apices are unremarkable. 1. Soft tissue mass which has the density of fluid which could represent a hematoma 2. Negative for bony abnormalities. 3. No evidence of vascular extravasation. CT/CT angio neck [id number] Impression: Dictated By:[place] [address] CT Scan Report Signed Patient: Canelo Lara AMR#: [id number] : 1950Acct:[id number] Age/Sex: 69 / MADM Date: 08/17/19 Loc: ER Attending Dr: Ordering Physician: Andrea Beltran DO Date of Service: 08/18/19 Procedure(s): CT angio neck 71910 Accession Number(s): [id number] cc: Andrea Beltran DO~ PROCEDURE INFORMATION: Exam: CT Angiography Neck Without And With Contrast Exam date and time: 08/18/2019 6:22 AM Age: 69 years old Clinical indication: Injury or trauma; Injury history: Blunt impact to right side of neck; Initial encounter; Blunt trauma; Patient HX: Patient sustained blunt blow to right side of neck one week ago. Soft tissue hematoma to right side of neck has expanded since arrival to er yesterday afternoon. ; Additional info: Expanding TECHNIQUE: Imaging protocol: Computed tomographic angiography of the neck without and with intravenous contrast. 3D rendering: MIP and/or 3D reconstructed images were created by the technologist. Total DLP: 2050.23 mGy-cm Radiation optimization: All CT scans at this facility use at least one of these dose optimization techniques: automated exposure control; mA and/or kV adjustment per patient size (includes targeted exams where dose is matched to clinical indication); or iterative reconstruction. Contrast material: VISI 320; Contrast volume: 95 ml; Contrast route: 20G; COMPARISON: CT angio neck [id number] 08/17/2019 2:22 PM FINDINGS: VASCULATURE: Right common carotid artery: There are moderate calcified atherosclerotic changes involving the right common carotid artery bifurcation. Right internal carotid artery: Unremarkable extracranial segment. No stenosis. No dissection or occlusion. Right external carotid artery: Unremarkable. No occlusion or stenosis of the origin. Right vertebral artery: Unremarkable. No stenosis. No dissection or occlusion. Left common carotid artery: There are moderate calcified atherosclerotic changes involving the left common carotid artery bifurcation. Left internal carotid artery: There are moderate calcified atherosclerotic changes involving the origin of the left internal carotid artery. Left external carotid artery: Unremarkable. No occlusion or stenosis of the origin. Left vertebral artery: Unremarkable. No stenosis. No dissection or occlusion. NECK: Bones/joints: No acute fracture. Soft tissues: There is extensive soft tissue edema, swelling, and induration of the right neck consistent with patient's recent trauma. There is a large hematoma deep to the sternocleidomastoid muscle, similar in appearance to prior study. No contrast extravasation is identified. Aside from moderate atherosclerotic changes, the underlying cervical carotid arteries are within normal limits. CT/CT angio neck [id number] IMPRESSION: There is extensive soft tissue edema, swelling, and induration of the right neck consistent with patient's recent trauma. There is a large hematoma deep to the sternocleidomastoid muscle, similar in appearance to prior study. No contrast extravasation is identified. Aside from moderate atherosclerotic changes, the underlying cervical carotid arteries are within normal limits. Radiation Dose CTDIVOL = (mGy): DLP = 2050.23 (mGy-cm) Dictated By: Abilio Rodriguez 08/18/19803 Signed By: Abilio Rodriguez 08/18/19804 CXR: Radiologist's impression: [address] [address] XRay Report Signed Patient: Canelo Lara AMR#: [id number] : 1950Acct:[id number] Age/Sex: 69 / MADM Date: 08/17/19 Loc: ER Attending Dr: Ordering Physician: Andrea Beltran DO Date of Service: 08/18/19 Procedure(s): XR chest 1V portable [id number] Accession Number(s): [id number] Report Number: [id number] WS: [id number] CHEST XRAY TECHNIQUE: Portable chest. CLINICAL INFORMATION: cough COMPARISON: None. FINDINGS: Heart: Normal cardiac silhouette. Lungs: Chronic emphysematous changes. No acute pulmonary infiltrates. No focal pneumonia. No significant pleural fluid. Bones: Normal visualized bony structures. XR/XR chest 1V portable [id number] IMPRESSION: No acute chest findings Dictated By:Anders Liu MD Signed By:Anders Liu MDSigned Date/Time:08/18/19826 Discharge Plan Discharge Patient Disposition: Xfer Other Clinical Impression: Acute hepatic failure, Hepatic encephalopathy, Acute renal failure, Acute hyperkalemia, Hematoma of neck Condition: Stable Discharge Orders: Transfer Out of Facility (Order); Ordered 08/20/19 Ordered By: Andrea Beltran Discharge Date/Time: 08/20/19 08:11 Sign Out Sign Out Data: Patient Sign Out occurred on 08/19/19 at 06:01. Patient's care was discussed, and care was transferred from Celeste Valdez MD to Andrea Beltran DO. Sign Out Comment: Patient still awaiting transfer to [facility] has been accepted. We are waiting on a room and are continuing to monitor him closely. Patient care turned over to Dr. Beltran at shift change Last updated by Celeste Valdez MD at 08/19/19 05:33 Coding Level of Care Code ED Flyer Maker for Chg Fwd Exam Problem Focused Documented by User: Celeste Valdez MD 08/19/19 06:05 HPI - Dizziness General: Chief Complaint: Dizziness Stated Complaint: dizzy, headache Time Seen by Provider: 08/17/19 13:50 PFSH ED PFSH: Statuses (acute, chronic, etc) shown below reflect problem list status as previously entered and may not be historically accurate Social History Smoking and tobacco status: never smoked Course Vital Signs: Vital signs: Vital Signs Temperature 98.6 F 08/19/19 06:30 Pulse Rate 94 08/20/19 08:03 Respiratory Rate 16 08/20/19 08:03 Blood Pressure 168/120 08/20/19 08:03 Pulse Oximetry 97 08/20/19 08:03 MDM - Dizziness MDM Narrative: Medical decision making narrative: 1899 introduced myself to the patient. There is a sitter in the room his went to go get something to eat. Awaiting callback from [facility] about transfer. 48 went to check on patient resting with eyes closed he is slightly tachycardic and blood pressure is elevated 172/128 asked for manual blood pressure he does not seem to be in any more distress then earlier when I saw him. They tell me they just got him cleaned up and he was slightly agitated during that time we will continue to monitor and waiting for bed assignment at [facility] and transfer. Lab Data: Labs: Lab Results 08/17/19 08/17/19 08/17/19 Range/Units 13:49 13:49 13:49 WBC 22.2 H (4.0-10.0) 10^3/ uL RBC 5.04 (4.1-5.3) 10^6/u L Hgb 16.1 (11.7-16.6) g/dL Hct 49.4 (42.0-52.0) % MCV 98.0 H (80-94) fL MCH 31.9 (28.0-34.0) pg MCHC 32.6 (30.0-36.0) g/dL RDW 15.0 (12.1-15.1) % Plt Count 310 (130-400) 10^3/c mm MPV 9.3 (7.4-10.4) fL Neut % (Auto) 75.7 % Lymph % (Auto) 4.3 % [place] % (Auto) 1.8 % Eos % (Auto) 0.0 % Baso % (Auto) 0.4 % Neut # (Auto) 16.9 H (1.8-7.7) 10^3/u L Lymph # (Auto) 1.0 (0.8-4.8) 10^3/u L [place] # (Auto) 0.4 (0.2-0.9) 10^3/u L Eos # (Auto) 0.0 (0.0-0.8) 10^3/u L Baso # (Auto) 0.1 (0.0-0.1) 10^3/u L Nucleated RBC % (a uto) 0 % Total Counted (0-100) Segmented Neutroph ils % Band Neutrophils % Lymphocytes (Manua l) % Monocytes (Manual) % Absolute Monocytes (0.1-0.6) 10^3/c mm Nucleated RBCs # 0.0 /100WBC Platelet Estimate (Normal) PT 32.90 H (10.5-13.3) SECO NDS INR 3.07 H (0.8-1.2) APTT 34.7 (23.9-36.7) SECO NDS Specimen Type Sample Site ABG pH (7.35-7.45) ABG pCO2 (35-45) mmHg ABG pO2 (80.0-100.0) mmH g ABG HCO3 (22-26) mmol/L ABG Base Excess (-2.0-2.0) mmol/ L Rudy Test Hematocrit (42-52) % Hgb O2 Saturation (95-100) % Carboxyhemoglobin (0.4-20.1) %THgb Methemoglobin (0.4-1.5) % Total Hemoglobin (14-18) g/dL [employer] ID Sodium 132 L (136-145) mmol/L Potassium 5.4 H (3.5-5.1) mmol/L Chloride 95 L (98-107) mmol/L Carbon Dioxide 16 L (22-29) mmol/L Anion Gap 26.4 H (5-19) BUN 29 H (8-23) mg/dL Creatinine 2.2 H (0.7-1.2) mg/dL GFR Calculation 29.8 L (90-130) mL/min Glucose 98 (74-106) mg/dL POC Glucose (70-110) mg/dL Lactate (0.5-2.2) mmol/L Calcium 10.1 (8.8-10.2) mg/Dl Phosphorus (2.5-4.5) mg/dL Magnesium (1.7-2.3) mg/dL Total Bilirubin 2.3 H (0.15-1.2) mg/dL AST 3162 H (0-40) U/L ALT 3118 H (0-41) U/L Alkaline Phosphata se 228 H (40-130) IU/L Ammonia (16-60) umol/L Troponin I 6 Hour (0-15) ng/L Troponin I Hi Sens Del (0-12) ng/L Troponin T Baselin e (0-15) ng/mL Troponin T 120 [place] (0-15) ng/mL Delta Troponin T (0-10) ABS# Total Protein 7.2 (6.6-8.7) g/dL Albumin 3.5 (3.5-5.2) g/dL Globulin 3.7 (1.3-4.6) g/dL Urine Color (Yellow) Urine Appearance (CLEAR) Urine pH (5-7) Ur Specific Gravit y (1.005-1.030) Urine Protein (Negative) Urine Glucose (UA) (Normal) Urine Ketones (Negative) Urine Occult Blood (Negative) Urine Nitrate (Negative) Urine Bilirubin (NEGATIVE) Urine Urobilinogen (Negative) mg/dL Ur Leukocyte Carol ase (Negative) Urine RBC (0-2) /hpf Urine WBC (0-5) /hpf Ur Squamous Epith Cells (0-5) Urine Bacteria (NONE) Hepatitis A IgM Ab (Nonreactive) Hep Bs Antibody (0-8.5) Hep B Core Total A b (Nonreactive) Hepatitis C Antibo dy (Nonreactive) Blood Type 08/17/19 08/17/19 08/17/19 Range/Units 13:49 13:49 13:49 WBC (4.0-10.0) 10^3/ uL RBC (4.1-5.3) 10^6/u L Hgb (11.7-16.6) g/dL Hct (42.0-52.0) % MCV (80-94) fL MCH (28.0-34.0) pg MCHC (30.0-36.0) g/dL RDW (12.1-15.1) % Plt Count (130-400) 10^3/c mm MPV (7.4-10.4) fL Neut % (Auto) % Lymph % (Auto) % [place] % (Auto) % Eos % (Auto) % Baso % (Auto) % Neut # (Auto) (1.8-7.7) 10^3/u L Lymph # (Auto) (0.8-4.8) 10^3/u L [place] # (Auto) (0.2-0.9) 10^3/u L Eos # (Auto) (0.0-0.8) 10^3/u L Baso # (Auto) (0.0-0.1) 10^3/u L Nucleated RBC % (a uto) % Total Counted (0-100) Segmented Neutroph ils % Band Neutrophils % Lymphocytes (Manua l) % Monocytes (Manual) % Absolute Monocytes (0.1-0.6) 10^3/c mm Nucleated RBCs # /100WBC Platelet Estimate (Normal) PT (10.5-13.3) SECO NDS INR (0.8-1.2) APTT (23.9-36.7) SECO NDS Specimen Type Sample Site ABG pH (7.35-7.45) ABG pCO2 (35-45) mmHg ABG pO2 (80.0-100.0) mmH g ABG HCO3 (22-26) mmol/L ABG Base Excess (-2.0-2.0) mmol/ L Rudy Test Hematocrit (42-52) % Hgb O2 Saturation (95-100) % Carboxyhemoglobin (0.4-20.1) %THgb Methemoglobin (0.4-1.5) % Total Hemoglobin (14-18) g/dL [employer] ID Sodium (136-145) mmol/L Potassium (3.5-5.1) mmol/L Chloride (98-107) mmol/L Carbon Dioxide (22-29) mmol/L Anion Gap (5-19) BUN (8-23) mg/dL Creatinine (0.7-1.2) mg/dL GFR Calculation (90-130) mL/min Glucose (74-106) mg/dL POC Glucose (70-110) mg/dL Lactate 8.5 H* (0.5-2.2) mmol/L Calcium (8.8-10.2) mg/Dl Phosphorus (2.5-4.5) mg/dL Magnesium (1.7-2.3) mg/dL Total Bilirubin (0.15-1.2) mg/dL AST (0-40) U/L ALT (0-41) U/L Alkaline Phosphata se (40-130) IU/L Ammonia (16-60) umol/L Troponin I 6 Hour (0-15) ng/L Troponin I Hi Sens Del (0-12) ng/L Troponin T Baselin e 11 (0-15) ng/mL Troponin T 120 [place] (0-15) ng/mL Delta Troponin T (0-10) ABS# Total Protein (6.6-8.7) g/dL Albumin (3.5-5.2) g/dL Globulin (1.3-4.6) g/dL Urine Color (Yellow) Urine Appearance (CLEAR) Urine pH (5-7) Ur Specific Gravit y (1.005-1.030) Urine Protein (Negative) Urine Glucose (UA) (Normal) Urine Ketones (Negative) Urine Occult Blood (Negative) Urine Nitrate (Negative) Urine Bilirubin (NEGATIVE) Urine Urobilinogen (Negative) mg/dL Ur Leukocyte Carol ase (Negative) Urine RBC (0-2) /hpf Urine WBC (0-5) /hpf Ur Squamous Epith Cells (0-5) Urine Bacteria (NONE) Hepatitis A IgM Ab Non-reactive (Nonreactive) Hep Bs Antibody 3.5 (0-8.5) Hep B Core Total A b Reactive (Nonreactive) Hepatitis C Antibo dy Non-reactive (Nonreactive) Blood Type 08/17/19 08/17/19 08/17/19 Range/Units 15:37 15:54 16:36 WBC (4.0-10.0) 10^3/ uL RBC (4.1-5.3) 10^6/u L Hgb (11.7-16.6) g/dL Hct (42.0-52.0) % MCV (80-94) fL MCH (28.0-34.0) pg MCHC (30.0-36.0) g/dL RDW (12.1-15.1) % Plt Count (130-400) 10^3/c mm MPV (7.4-10.4) fL Neut % (Auto) % Lymph % (Auto) % [place] % (Auto) % Eos % (Auto) % Baso % (Auto) % Neut # (Auto) (1.8-7.7) 10^3/u L Lymph # (Auto) (0.8-4.8) 10^3/u L [place] # (Auto) (0.2-0.9) 10^3/u L Eos # (Auto) (0.0-0.8) 10^3/u L Baso # (Auto) (0.0-0.1) 10^3/u L Nucleated RBC % (a uto) % Total Counted (0-100) Segmented Neutroph ils % Band Neutrophils % Lymphocytes (Manua l) % Monocytes (Manual) % Absolute Monocytes (0.1-0.6) 10^3/c mm Nucleated RBCs # /100WBC Platelet Estimate (Normal) PT (10.5-13.3) SECO NDS INR (0.8-1.2) APTT (23.9-36.7) SECO NDS Specimen Type Sample Site ABG pH (7.35-7.45) ABG pCO2 (35-45) mmHg ABG pO2 (80.0-100.0) mmH g ABG HCO3 (22-26) mmol/L ABG Base Excess (-2.0-2.0) mmol/ L Rudy Test Hematocrit (42-52) % Hgb O2 Saturation (95-100) % Carboxyhemoglobin (0.4-20.1) %THgb Methemoglobin (0.4-1.5) % Total Hemoglobin (14-18) g/dL [employer] ID Sodium (136-145) mmol/L Potassium (3.5-5.1) mmol/L Chloride (98-107) mmol/L Carbon Dioxide (22-29) mmol/L Anion Gap (5-19) BUN (8-23) mg/dL Creatinine (0.7-1.2) mg/dL GFR Calculation (90-130) mL/min Glucose (74-106) mg/dL POC Glucose (70-110) mg/dL Lactate (0.5-2.2) mmol/L Calcium (8.8-10.2) mg/Dl Phosphorus (2.5-4.5) mg/dL Magnesium (1.7-2.3) mg/dL Total Bilirubin (0.15-1.2) mg/dL AST (0-40) U/L ALT (0-41) U/L Alkaline Phosphata se (40-130) IU/L Ammonia 108 H (16-60) umol/L Troponin I 6 Hour (0-15) ng/L Troponin I Hi Sens Del (0-12) ng/L Troponin T Baselin e (0-15) ng/mL Troponin T 120 [place] 10.56 (0-15) ng/mL Delta Troponin T -0.44 L (0-10) ABS# Total Protein (6.6-8.7) g/dL Albumin (3.5-5.2) g/dL Globulin (1.3-4.6) g/dL Urine Color (Yellow) Urine Appearance (CLEAR) Urine pH (5-7) Ur Specific Gravit y (1.005-1.030) Urine Protein (Negative) Urine Glucose (UA) (Normal) Urine Ketones (Negative) Urine Occult Blood (Negative) Urine Nitrate (Negative) Urine Bilirubin (NEGATIVE) Urine Urobilinogen (Negative) mg/dL Ur Leukocyte Carol ase (Negative) Urine RBC (0-2) /hpf Urine WBC (0-5) /hpf Ur Squamous Epith Cells (0-5) Urine Bacteria (NONE) Hepatitis A IgM Ab (Nonreactive) Hep Bs Antibody (0-8.5) Hep B Core Total A b (Nonreactive) Hepatitis C Antibo dy (Nonreactive) Blood Type O Negative 08/17/19 08/18/19 08/18/19 Range/Units 19:24 06:33 06:47 WBC 10.6 H (4.0-10.0) 10^3/ uL RBC 4.16 (4.1-5.3) 10^6/u L Hgb 13.2 (11.7-16.6) g/dL Hct 40.3 L (42.0-52.0) % MCV 96.9 H (80-94) fL MCH 31.7 (28.0-34.0) pg MCHC 32.8 (30.0-36.0) g/dL RDW 15.3 H (12.1-15.1) % Plt Count 246 (130-400) 10^3/c mm MPV 9.1 (7.4-10.4) fL Neut % (Auto) 54.2 % Lymph % (Auto) 9.6 % [place] % (Auto) 3.8 % Eos % (Auto) 0.6 % Baso % (Auto) 0.6 % Neut # (Auto) 5.8 (1.8-7.7) 10^3/u L Lymph # (Auto) 1.0 (0.8-4.8) 10^3/u L [place] # (Auto) 0.4 (0.2-0.9) 10^3/u L Eos # (Auto) 0.1 (0.0-0.8) 10^3/u L Baso # (Auto) 0.1 (0.0-0.1) 10^3/u L Nucleated RBC % (a uto) 0 % Total Counted (0-100) Segmented Neutroph ils % Band Neutrophils % Lymphocytes ([place]) % Monocytes (Manual) % Absolute Monocytes (0.1-0.6) 10^3/c mm Nucleated RBCs # 0.0 /100WBC Platelet Estimate (Normal) PT (10.5-13.3) SECO NDS INR (0.8-1.2) APTT (23.9-36.7) SECO NDS Specimen Type Arterial Sample Site Radial, left ABG pH 7.43 (7.35-7.45) ABG pCO2 31.6 L (35-45) mmHg ABG pO2 75.5 L (80.0-100.0) mmH g ABG HCO3 20.9 L (22-26) mmol/L ABG Base Excess -2.5 L (-2.0-2.0) mmol/ L Rudy Test Pos Hematocrit 44.1 (42-52) % Hgb O2 Saturation 93.9 L (95-100) % Carboxyhemoglobin 0.6 (0.4-20.1) %THgb Methemoglobin 0.8 (0.4-1.5) % Total Hemoglobin 14.4 (14-18) g/dL [employer] harkr Sodium (136-145) mmol/L Potassium (3.5-5.1) mmol/L Chloride (98-107) mmol/L Carbon Dioxide (22-29) mmol/L Anion Gap (5-19) BUN (8-23) mg/dL Creatinine (0.7-1.2) mg/dL GFR Calculation (90-130) mL/min Glucose (74-106) mg/dL POC Glucose (70-110) mg/dL Lactate (0.5-2.2) mmol/L Calcium (8.8-10.2) mg/Dl Phosphorus (2.5-4.5) mg/dL Magnesium (1.7-2.3) mg/dL Total Bilirubin (0.15-1.2) mg/dL AST (0-40) U/L ALT (0-41) U/L Alkaline Phosphata se (40-130) IU/L Ammonia (16-60) umol/L Troponin I 6 Hour 10.86 (0-15) ng/L Troponin I Hi Sens Del (0-12) ng/L Troponin T Baselin e (0-15) ng/mL Troponin T 120 Min [place] (0-15) ng/mL Delta Troponin T (0-10) ABS# Total Protein (6.6-8.7) g/dL Albumin (3.5-5.2) g/dL Globulin (1.3-4.6) g/dL Urine Color (Yellow) Urine Appearance (CLEAR) Urine pH (5-7) Ur Specific Gravit y (1.005-1.030) Urine Protein (Negative) Urine Glucose (UA) (Normal) Urine Ketones (Negative) Urine Occult Blood (Negative) Urine Nitrate (Negative) Urine Bilirubin (NEGATIVE) Urine Urobilinogen (Negative) mg/dL Ur Leukocyte Carol ase (Negative) Urine RBC (0-2) /hpf Urine WBC (0-5) /hpf Ur Squamous Epith Cells (0-5) Urine Bacteria (NONE) Hepatitis A IgM Ab (Nonreactive) Hep Bs Antibody (0-8.5) Hep B Core Total A b (Nonreactive) Hepatitis C Antibo dy (Nonreactive) Blood Type 08/18/19 08/18/19 08/18/19 Range/Units 06:47 06:47 06:47 WBC (4.0-10.0) 10^3/ uL RBC (4.1-5.3) 10^6/u L Hgb (11.7-16.6) g/dL Hct (42.0-52.0) % MCV (80-94) fL MCH (28.0-34.0) pg MCHC (30.0-36.0) g/dL RDW (12.1-15.1) % Plt Count (130-400) 10^3/c mm MPV (7.4-10.4) fL Neut % (Auto) % Lymph % (Auto) % [place] % (Auto) % Eos % (Auto) % Baso % (Auto) % Neut # (Auto) (1.8-7.7) 10^3/u L Lymph # (Auto) (0.8-4.8) 10^3/u L [place] # (Auto) (0.2-0.9) 10^3/u L Eos # (Auto) (0.0-0.8) 10^3/u L Baso # (Auto) (0.0-0.1) 10^3/u L Nucleated RBC % (a uto) % Total Counted (0-100) Segmented Neutroph ils % Band Neutrophils % Lymphocytes (Manua l) % Monocytes (Manual) % Absolute Monocytes (0.1-0.6) 10^3/c mm Nucleated RBCs # /100WBC Platelet Estimate (Normal) PT (10.5-13.3) SECO NDS INR (0.8-1.2) APTT (23.9-36.7) SECO NDS Specimen Type Sample Site ABG pH (7.35-7.45) ABG pCO2 (35-45) mmHg ABG pO2 (80.0-100.0) mmH g ABG HCO3 (22-26) mmol/L ABG Base Excess (-2.0-2.0) mmol/ L Rudy Test Hematocrit (42-52) % Hgb O2 Saturation (95-100) % Carboxyhemoglobin (0.4-20.1) %THgb Methemoglobin (0.4-1.5) % Total Hemoglobin (14-18) g/dL Aerospace Mechanic ID Sodium 137 (136-145) mmol/L Potassium 4.4 (3.5-5.1) mmol/L Chloride 105 (98-107) mmol/L Carbon Dioxide 19 L (22-29) mmol/L Anion Gap 17.4 (5-19) BUN 38 H (8-23) mg/dL Creatinine 1.8 H (0.7-1.2) mg/dL GFR Calculation 37.6 L (90-130) mL/min Glucose 66 L (74-106) mg/dL POC Glucose (70-110) mg/dL Lactate 3.2 H (0.5-2.2) mmol/L Calcium 9.4 (8.8-10.2) mg/Dl Phosphorus 3.3 (2.5-4.5) mg/dL Magnesium 2.1 (1.7-2.3) mg/dL Total Bilirubin 2.4 H (0.15-1.2) mg/dL AST 1015 H (0-40) U/L ALT 1632 H (0-41) U/L Alkaline Phosphata se 193 H (40-130) IU/L Ammonia 109 H (16-60) umol/L Troponin I 6 Hour (0-15) ng/L Troponin I Hi Sens Del (0-12) ng/L Troponin T Baselin e (0-15) ng/mL Troponin T 120 Min [place] (0-15) ng/mL Delta Troponin T (0-10) ABS# Total Protein 6.2 L (6.6-8.7) g/dL Albumin 3.0 L (3.5-5.2) g/dL Globulin 3.2 (1.3-4.6) g/dL Urine Color (Yellow) Urine Appearance (CLEAR) Urine pH (5-7) Ur Specific Gravit y (1.005-1.030) Urine Protein (Negative) Urine Glucose (UA) (Normal) Urine Ketones (Negative) Urine Occult Blood (Negative) Urine Nitrate (Negative) Urine Bilirubin (NEGATIVE) Urine Urobilinogen (Negative) mg/dL Ur Leukocyte Carol ase (Negative) Urine RBC (0-2) /hpf Urine WBC (0-5) /hpf Ur Squamous Epith Cells (0-5) Urine Bacteria (NONE) Hepatitis A IgM Ab (Nonreactive) Hep Bs Antibody (0-8.5) Hep B Core Total A b (Nonreactive) Hepatitis C Antibo dy (Nonreactive) Blood Type 08/18/19 08/18/19 08/18/19 Range/Units 06:47 08:00 20:22 WBC (4.0-10.0) 10^3/ uL RBC (4.1-5.3) 10^6/u L Hgb (11.7-16.6) g/dL Hct (42.0-52.0) % MCV (80-94) fL MCH (28.0-34.0) pg MCHC (30.0-36.0) g/dL RDW (12.1-15.1) % Plt Count (130-400) 10^3/c mm MPV (7.4-10.4) fL Neut % (Auto) % Lymph % (Auto) % [place] % (Auto) % Eos % (Auto) % Baso % (Auto) % Neut # (Auto) (1.8-7.7) 10^3/u L Lymph # (Auto) (0.8-4.8) 10^3/u L [place] # (Auto) (0.2-0.9) 10^3/u L Eos # (Auto) (0.0-0.8) 10^3/u L Baso # (Auto) (0.0-0.1) 10^3/u L Nucleated RBC % (a uto) % Total Counted (0-100) Segmented Neutroph ils % Band Neutrophils % Lymphocytes (Manua l) % Monocytes (Manual) % Absolute Monocytes (0.1-0.6) 10^3/c mm Nucleated RBCs # /100WBC Platelet Estimate (Normal) PT 28.00 H (10.5-13.3) SECO NDS INR 2.50 H (0.8-1.2) APTT 35.1 (23.9-36.7) SECO NDS Specimen Type Sample Site ABG pH (7.35-7.45) ABG pCO2 (35-45) mmHg ABG pO2 (80.0-100.0) mmH g ABG HCO3 (22-26) mmol/L ABG Base Excess (-2.0-2.0) mmol/ L Rudy Test Hematocrit (42-52) % Hgb O2 Saturation (95-100) % Carboxyhemoglobin (0.4-20.1) %THgb Methemoglobin (0.4-1.5) % Total Hemoglobin (14-18) g/dL Aerospace Mechanic ID Sodium (136-145) mmol/L Potassium (3.5-5.1) mmol/L Chloride (98-107) mmol/L Carbon Dioxide (22-29) mmol/L Anion Gap (5-19) BUN (8-23) mg/dL Creatinine (0.7-1.2) mg/dL GFR Calculation (90-130) mL/min Glucose (74-106) mg/dL POC Glucose 101 (70-110) mg/dL Lactate (0.5-2.2) mmol/L Calcium (8.8-10.2) mg/Dl Phosphorus (2.5-4.5) mg/dL Magnesium (1.7-2.3) mg/dL Total Bilirubin (0.15-1.2) mg/dL AST (0-40) U/L ALT (0-41) U/L Alkaline Phosphata se (40-130) IU/L Ammonia (16-60) umol/L Troponin I 6 Hour (0-15) ng/L Troponin I Hi Sens Del (0-12) ng/L Troponin T Baselin e (0-15) ng/mL Troponin T 120 Min [place] (0-15) ng/mL Delta Troponin T (0-10) ABS# Total Protein (6.6-8.7) g/dL Albumin (3.5-5.2) g/dL Globulin (1.3-4.6) g/dL Urine Color Yellow (Yellow) Urine Appearance Clear (CLEAR) Urine pH 5.0 (5-7) Ur Specific Gravit y 1.010 (1.005-1.030) Urine Protein Trace (Negative) Urine Glucose (UA) Norm (Normal) Urine Ketones Negative (Negative) Urine Occult Blood Neg (Negative) Urine Nitrate Negative (Negative) Urine Bilirubin 1+ H (NEGATIVE) Urine Urobilinogen Norm (Negative) mg/dL Ur Leukocyte Carol ase Negative (Negative) Urine RBC Rare (0-2) /hpf Urine WBC None (0-5) /hpf Ur Squamous Epith Cells None (0-5) Urine Bacteria 1+ H (NONE) Hepatitis A IgM Ab (Nonreactive) Hep Bs Antibody (0-8.5) Hep B Core Total A b (Nonreactive) Hepatitis C Antibo dy (Nonreactive) Blood Type 08/19/19 08/19/19 08/19/19 Range/Units 02:40 02:40 02:40 WBC 12.7 H (4.0-10.0) 10^3/ uL RBC 4.20 (4.1-5.3) 10^6/u L Hgb 13.5 (11.7-16.6) g/dL Hct 41.7 L (42.0-52.0) % MCV 99.3 H (80-94) fL MCH 32.1 (28.0-34.0) pg MCHC 32.4 (30.0-36.0) g/dL RDW 15.2 H (12.1-15.1) % Plt Count 213 (130-400) 10^3/c mm MPV 9.0 (7.4-10.4) fL Neut % (Auto) % Lymph % (Auto) % [place] % (Auto) % Eos % (Auto) % Baso % (Auto) % Neut # (Auto) (1.8-7.7) 10^3/u L Lymph # (Auto) (0.8-4.8) 10^3/u L [place] # (Auto) (0.2-0.9) 10^3/u L Eos # (Auto) (0.0-0.8) 10^3/u L Baso # (Auto) (0.0-0.1) 10^3/u L Nucleated RBC % (a uto) % Total Counted 100 (0-100) Segmented Neutroph ils 70 % Band Neutrophils 4.0 % Lymphocytes (Manua l) 24 % Monocytes (Manual) 2.0 % Absolute Monocytes 0.3 (0.1-0.6) 10^3/c mm Nucleated RBCs # /100WBC Platelet Estimate Decreased (Normal) PT 26.30 H (10.5-13.3) SECO NDS INR 2.32 H (0.8-1.2) APTT (23.9-36.7) SECO NDS Specimen Type Sample Site ABG pH (7.35-7.45) ABG pCO2 (35-45) mmHg ABG pO2 (80.0-100.0) mmH g ABG HCO3 (22-26) mmol/L ABG Base Excess (-2.0-2.0) mmol/ L Rudy Test Hematocrit (42-52) % Hgb O2 Saturation (95-100) % Carboxyhemoglobin (0.4-20.1) %THgb Methemoglobin (0.4-1.5) % Total Hemoglobin (14-18) g/dL Aerospace Mechanic ID Sodium 136 (136-145) mmol/L Potassium 3.9 (3.5-5.1) mmol/L Chloride 105 (98-107) mmol/L Carbon Dioxide 20 L (22-29) mmol/L Anion Gap 14.9 (5-19) BUN 49 H (8-23) mg/dL Creatinine 1.4 H (0.7-1.2) mg/dL GFR Calculation 50.2 L (90-130) mL/min Glucose 93 (74-106) mg/dL POC Glucose (70-110) mg/dL Lactate (0.5-2.2) mmol/L Calcium 9.4 (8.8-10.2) mg/Dl Phosphorus (2.5-4.5) mg/dL Magnesium (1.7-2.3) mg/dL Total Bilirubin 2.0 H (0.15-1.2) mg/dL AST 299 H (0-40) U/L ALT 1074 H (0-41) U/L Alkaline Phosphata se 270 H (40-130) IU/L Ammonia (16-60) umol/L Troponin I 6 Hour (0-15) ng/L Troponin I Hi Sens Del (0-12) ng/L Troponin T Baselin e (0-15) ng/mL Troponin T 120 Min [place] (0-15) ng/mL Delta Troponin T (0-10) ABS# Total Protein 6.6 (6.6-8.7) g/dL Albumin 2.7 L (3.5-5.2) g/dL Globulin 3.9 (1.3-4.6) g/dL Urine Color (Yellow) Urine Appearance (CLEAR) Urine pH (5-7) Ur Specific Gravit y (1.005-1.030) Urine Protein (Negative) Urine Glucose (UA) (Normal) Urine Ketones (Negative) Urine Occult Blood (Negative) Urine Nitrate (Negative) Urine Bilirubin (NEGATIVE) Urine Urobilinogen (Negative) mg/dL Ur Leukocyte Carol ase (Negative) Urine RBC (0-2) /hpf Urine WBC (0-5) /hpf Ur Squamous Epith Cells (0-5) Urine Bacteria (NONE) Hepatitis A IgM Ab (Nonreactive) Hep Bs Antibody (0-8.5) Hep B Core Total A b (Nonreactive) Hepatitis C Antibo dy (Nonreactive) Blood Type 08/19/19 08/19/19 08/19/19 Range/Units 02:40 10:18 12:21 WBC (4.0-10.0) 10^3/ uL RBC (4.1-5.3) 10^6/u L Hgb (11.7-16.6) g/dL Hct (42.0-52.0) % MCV (80-94) fL MCH (28.0-34.0) pg MCHC (30.0-36.0) g/dL RDW (12.1-15.1) % Plt Count (130-400) 10^3/c mm MPV (7.4-10.4) fL Neut % (Auto) % Lymph % (Auto) % [place] % (Auto) % Eos % (Auto) % Baso % (Auto) % Neut # (Auto) (1.8-7.7) 10^3/u L Lymph # (Auto) (0.8-4.8) 10^3/u L [place] # (Auto) (0.2-0.9) 10^3/u L Eos # (Auto) (0.0-0.8) 10^3/u L Baso # (Auto) (0.0-0.1) 10^3/u L Nucleated RBC % (a uto) % Total Counted (0-100) Segmented Neutroph ils % Band Neutrophils % Lymphocytes (Man[place] l) % Monocytes (Manual) % Absolute Monocytes (0.1-0.6) 10^3/c mm Nucleated RBCs # /100WBC Platelet Estimate (Normal) PT (10.5-13.3) SECO NDS INR (0.8-1.2) APTT (23.9-36.7) SECO NDS Specimen Type Sample Site ABG pH (7.35-7.45) ABG pCO2 (35-45) mmHg ABG pO2 (80.0-100.0) mmH g ABG HCO3 (22-26) mmol/L ABG Base Excess (-2.0-2.0) mmol/ L Rudy Test Hematocrit (42-52) % Hgb O2 Saturation (95-100) % Carboxyhemoglobin (0.4-20.1) %THgb Methemoglobin (0.4-1.5) % Total Hemoglobin (14-18) g/dL Aerospace Mechanic ID Sodium (136-145) mmol/L Potassium (3.5-5.1) mmol/L Chloride (98-107) mmol/L Carbon Dioxide (22-29) mmol/L Anion Gap (5-19) BUN (8-23) mg/dL Creatinine (0.7-1.2) mg/dL GFR Calculation (90-130) mL/min Glucose (74-106) mg/dL POC Glucose (70-110) mg/dL Lactate (0.5-2.2) mmol/L Calcium (8.8-10.2) mg/Dl Phosphorus (2.5-4.5) mg/dL Magnesium (1.7-2.3) mg/dL Total Bilirubin (0.15-1.2) mg/dL AST (0-40) U/L ALT (0-41) U/L Alkaline Phosphata se (40-130) IU/L Ammonia 96 H (16-60) umol/L Troponin I 6 Hour (0-15) ng/L Troponin I Hi Sens Del (0-12) ng/L Troponin T Baselin e 14 (0-15) ng/mL Troponin T 120 Min [place] 14.67 (0-15) ng/mL Delta Troponin T 0.67 (0-10) ABS# Total Protein (6.6-8.7) g/dL Albumin (3.5-5.2) g/dL Globulin (1.3-4.6) g/dL Urine Color (Yellow) Urine Appearance (CLEAR) Urine pH (5-7) Ur Specific Gravit y (1.005-1.030) Urine Protein (Negative) Urine Glucose (UA) (Normal) Urine Ketones (Negative) Urine Occult Blood (Negative) Urine Nitrate (Negative) Urine Bilirubin (NEGATIVE) Urine Urobilinogen (Negative) mg/dL Ur Leukocyte Carol ase (Negative) Urine RBC (0-2) /hpf Urine WBC (0-5) /hpf Ur Squamous Epith Cells (0-5) Urine Bacteria (NONE) Hepatitis A IgM Ab (Nonreactive) Hep Bs Antibody (0-8.5) Hep B Core Total A b (Nonreactive) Hepatitis C Antibo dy (Nonreactive) Blood Type 08/19/19 Range/Units 16:15 WBC (4.0-10.0) 10^3/ uL RBC (4.1-5.3) 10^6/u L Hgb (11.7-16.6) g/dL Hct (42.0-52.0) % MCV (80-94) fL MCH (28.0-34.0) pg MCHC (30.0-36.0) g/dL RDW (12.1-15.1) % Plt Count (130-400) 10^3/c mm MPV (7.4-10.4) fL Neut % (Auto) % Lymph % (Auto) % [place] % (Auto) % Eos % (Auto) % Baso % (Auto) % Neut # (Auto) (1.8-7.7) 10^3/u L Lymph # (Auto) (0.8-4.8) 10^3/u L [place] # (Auto) (0.2-0.9) 10^3/u L Eos # (Auto) (0.0-0.8) 10^3/u L Baso # (Auto) (0.0-0.1) 10^3/u L Nucleated RBC % (a uto) % Total Counted (0-100) Segmented Neutroph ils % Band Neutrophils % Lymphocytes (Manua l) % Monocytes (Manual) % Absolute Monocytes (0.1-0.6) 10^3/c mm Nucleated RBCs # /100WBC Platelet Estimate (Normal) PT (10.5-13.3) SECO NDS INR (0.8-1.2) APTT (23.9-36.7) SECO NDS Specimen Type Sample Site ABG pH (7.35-7.45) ABG pCO2 (35-45) mmHg ABG pO2 (80.0-100.0) mmH g ABG HCO3 (22-26) mmol/L ABG Base Excess (-2.0-2.0) mmol/ L Rudy Test Hematocrit (42-52) % Hgb O2 Saturation (95-100) % Carboxyhemoglobin (0.4-20.1) %THgb Methemoglobin (0.4-1.5) % Total Hemoglobin (14-18) g/dL Aer[employer] Mechanic ID Sodium (136-145) mmol/L Potassium (3.5-5.1) mmol/L Chloride (98-107) mmol/L Carbon Dioxide (22-29) mmol/L Anion Gap (5-19) BUN (8-23) mg/dL Creatinine (0.7-1.2) mg/dL GFR Calculation (90-130) mL/min Glucose (74-106) mg/dL POC Glucose (70-110) mg/dL Lactate (0.5-2.2) mmol/L Calcium (8.8-10.2) mg/Dl Phosphorus (2.5-4.5) mg/dL Magnesium (1.7-2.3) mg/dL Total Bilirubin (0.15-1.2) mg/dL AST (0-40) U/L ALT (0-41) U/L Alkaline Phosphata se (40-130) IU/L Ammonia (16-60) umol/L Troponin I 6 Hour 12.79 (0-15) ng/L Troponin I Hi Sens Del -1.21 L (0-12) ng/L Troponin T Baselin e (0-15) ng/mL Troponin T 120 [place] (0-15) ng/mL Delta Troponin T (0-10) ABS# Total Protein (6.6-8.7) g/dL Albumin (3.5-5.2) g/dL Globulin (1.3-4.6) g/dL Urine Color (Yellow) Urine Appearance (CLEAR) Urine pH (5-7) Ur Specific Gravit y (1.005-1.030) Urine Protein (Negative) Urine Glucose (UA) (Normal) Urine Ketones (Negative) Urine Occult Blood (Negative) Urine Nitrate (Negative) Urine Bilirubin (NEGATIVE) Urine Urobilinogen (Negative) mg/dL Ur Leukocyte Carol ase (Negative) Urine RBC (0-2) /hpf Urine WBC (0-5) /hpf Ur Squamous Epith Cells (0-5) Urine Bacteria (NONE) Hepatitis A IgM Ab (Nonreactive) Hep Bs Antibody (0-8.5) Hep B Core Total A b (Nonreactive) Hepatitis C Antibo dy (Nonreactive) Blood Type Discharge Plan Discharge Patient Disposition: Xfer Other Clinical Impression: Acute hepatic failure, Hepatic encephalopathy, Acute renal failure, Acute hyperkalemia, Hematoma of neck Condition: Stable Discharge Orders: Transfer Out of Facility (Order); Ordered 08/20/19 Ordered By: Andrea Beltran Discharge Date/Time: 08/20/19 08:11 Sign Out Sign Out Data: Patient Sign Out occurred on 08/19/19 at 06:01. Patient's care was discussed, and care was transferred from Celeste Valdez MD to Andrea Beltran DO. Sign Out Comment: Patient still awaiting transfer to [facility] has been accepted. We are waiting on a room and are continuing to monitor him closely. Patient care turned over to Dr. Beltran at shift change Last updated by Celeste Valdez MD at 08/19/19 05:33 Coding Level of Care Code ED Flyer Maker for Chg Fwd Exam Problem Focused The documentation recorded by the Robert chahal Stephanie Lyn, accurately reflects the service I personally performed and the decisions made by , Andrea Beltran DO Aug 17, 2019 13:04
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
[2019-08-17 14:07] LABS: Basophils # 0.1 10^3/uL (0.0-0.1); Basophils % 0.4 %; Hematocrit 49.4 % (42.0-52.0); Hemoglobin 16.1 g/dL (11.7-16.6); Lymphocytes % 4.3 %; Mean Corpuscular HGB Conc 32.6 g/dL (30.0-36.0); Mean Corpuscular Hemoglobin 31.9 pg (28.0-34.0); Mean Platelet Volume 9.3 fL (7.4-10.4); Monocytes # 0.4 10^3/uL (0.2-0.9); Monocytes % 1.8 %; Neutrophils # 16.9 10^3/uL (1.8-7.7); Neutrophils % 75.7 %; Nucleated Red Blood Cells % 0 %; Platelet Count 310 10^3/cmm (130-400); Red Blood Count 5.04 10^6/uL (4.1-5.3); White Blood Count 22.2 10^3/uL (4.0-10.0)
[2019-08-17] MEDS: iodixanol 320 mg/mL 100mL Btl IV ×2 (14:17→14:24)
[2019-08-17 14:23] LABS: Albumin Level 3.5 g/dL (3.5-5.2); Alkaline Phosphatase 228 IU/L (40-130); Anion Gap 26.4 (5-19); Blood Urea Nitrogen 29 mg/dL (8-23); Calcium 10.1 mg/Dl (8.8-10.2); Carbon Dioxide 16 mmol/L (22-29); Chloride 95 mmol/L (98-107); Globulin 3.7 g/dL (1.3-4.6); Glomerular Filtration Rate 29.8 mL/min (90-130); Glucose 98 mg/dL (74-106); Potassium 5.4 mmol/L (3.5-5.1); Sodium 132 mmol/L (136-145); Total Bilirubin 2.3 mg/dL (0.15-1.2); Total Protein 7.2 g/dL (6.6-8.7)
[2019-08-17 14:26] LABS: Troponin(5th) Baseline 11 ng/mL (0-15)
[2019-08-17 14:28] LABS: INR 3.07 (0.8-1.2)
[2019-08-17 14:29] LABS: Partial Thromboplastin Time 34.7 SECONDS (23.9-36.7)
[2019-08-17 14:38] LABS: Alanine Aminotransferase 3118 U/L (0-41)
[2019-08-17 14:48] LABS: Aspartate Amino Transferase 3162 U/L (0-40)
[2019-08-17 14:50] LABS: Lactate (Lactic Acid level) 8.5 mmol/L (0.5-2.2)
[2019-08-17 15:12] LABS: Slide Review Slide Review Perform
--- NOTE | 2019-08-17 15:56 | ECG_ITS ---
Measurements Intervals [place] Rate: 106 P: 53 SD: 156 QRS: -88 QRSD: 128 T: 35 QT: 336 QTc: 448 SINUS TACHYCARDIA RIGHT BUNDLE BRANCH BLOCK [120+ ms QRS DURATION, UPRIGHT V1, 40+ ms S IN I/aVL/V4/V5/V6] No previous ECG available for comparison Electronically Signed On 08-17-2019 19:08:40 PALLETISER OPERATOR by Rdaha Dickens M.D. [id number]
[2019-08-17 16:00] LABS: Ammonia 108 umol/L (16-60)
[2019-08-17 16:22] LABS: Troponin 5 2HR 10.56 ng/mL (0-15)
--- NOTE | 2019-08-17 16:24 | ECG_ITS ---
Measurements Intervals [place] Rate: 119 P: 54 [place]: 162 QRS: 262 QRSD: 134 T: 31 QT: 323 QTc: 455 SINUS TACHYCARDIA MARKED RIGHT AXIS DEVIATION [QRS AXIS > 100] RIGHT BUNDLE BRANCH BLOCK [120+ ms QRS DURATION, UPRIGHT V1, 40+ ms S IN I/aVL/V4/V5/V6] No previous ECG available for comparison Electronically Signed On 08-17-2019 19:01:57 DIRECTOR OF PUBLIC RELATIONS by Radha Dickens M.D. [id number] f
--- NOTE | 2019-08-17 16:28 | PC.NURSE ---
repeat ekg performed per ER physician request.
--- NOTE | 2019-08-17 16:29 | PC.NURSE ---
RN in room.
[2019-08-17 16:30] LABS: Troponin 5 2HR Delta -0.44 ABS# (0-10)
--- NOTE | 2019-08-17 16:30 | PC.NURSE ---
Pt became confused. Pt keeps having periods of confusion, and then back to normal. Pt pulled out bilateral IV's upon a confusion period.
[2019-08-17] MEDS: calcium gluconate 0.1 gm/mL 10% SDV 10mL 1 GM IVP (16:35)
[2019-08-17 16:44] LABS: Hepatitis A Antibody IgM. Non-Reactive (Nonreactive); Hepatitis B Surface AB. 3.5 (0-8.5); Hepatitis C Virus Antibody Non-Reactive (Nonreactive)
[2019-08-17] MEDS: sodium chloride 0.9% 1,000 ML 999 ML IV (16:51)
--- NOTE | 2019-08-17 19:56 | ECG_ITS ---
Measurements Intervals [place] Rate: 112 P: 45 [place]: 144 QRS: 264 QRSD: 137 T: 33 QT: 335 QTc: 459 SINUS TACHYCARDIA RIGHT AXIS DEVIATION [QRS AXIS > 100] RIGHT BUNDLE BRANCH BLOCK [120+ ms QRS DURATION, UPRIGHT V1, 40+ ms S IN I/aVL/V4/V5/V6] No previous ECG available for comparison Electronically Signed On 08-17-2019 19:09:32 DIAGNOSTIC RADIOLOGIST by Radha Dickens M.D. [id number] f
[2019-08-17 21:01] LABS: Troponin 5 6HR 10.86 ng/L (0-15)
[2019-08-17] MEDS: LORazepam 2 mg/mL INJ 1 mL 1 MG IVP (21:31)
[2019-08-17] MEDS: haloperidol inj 5 mg/mL INJ 1 mL IM (22:06)
--- NOTE | 2019-08-17 23:58 | PC.NURSE ---
Family friends at bedside requesting to go through patients items and get his house keys. friends stated that they live with patient and need into his house. This nurse explained that patient was not alert and oriented to inform nurse that they could have his house keys. Familys name and phone number was written down. Karen [phone]
[2019-08-18] VITALS (117 sets, daily range): BP systolic 81–162; BP diastolic 56–119; PULSE 78–117; RESP 13–29; TEMP 36.7; O2SAT 82–97
[2019-08-18] MEDS: sodium chloride 0.9% 1,000 ML 999 ML IV (02:17)
--- NOTE | 2019-08-18 04:55 | PC.NURSE ---
FABI Land from [facility] called for update on patient. This nurse gave update on patient status throughout the night and current set of vital signs.
--- NOTE | 2019-08-18 06:10 | XR_ITS ---
WS: [id number] CHEST XRAY TECHNIQUE: Portable chest. CLINICAL INFORMATION: cough COMPARISON: None. FINDINGS: Heart: Normal cardiac silhouette. Lungs: Chronic emphysematous changes. No acute pulmonary infiltrates. No focal pneumonia. No signific ant pleural fluid. Bones: Normal visualized bony structures. XR/XR chest 1V portable [id number] IMPRESSION: No acute chest findings
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
[2019-08-18] MEDS: sodium chloride 0.9% 1,000 ML 125 ML IV (06:27)
[2019-08-18 06:45] LABS: ABG PCO2 31.6 mmHg (35-45); ABG PH Result 7.43 (7.35-7.45); Arterial Blood Gas Hematocrit 44.1 % (42-52); Base Excess ABG -2.5 mmol/L (-2.0-2.0); Blood Gas Allen Test Pos; Blood Gas Sample Site Radial, left; Blood Gas Sample Type Arterial; Carboxyhemoglobin 0.6 %THgb (0.4-20.1); HCO3 ABG 20.9 mmol/L (22-26); HGB O2 Sat 93.9 % (95-100); Methemoglobin 0.8 % (0.4-1.5); PO2 ABG 75.5 mmHg (80.0-100.0); Total Hemoglobin 14.4 g/dL (14-18)
[2019-08-18] MEDS: iodixanol 320 mg/mL 100mL Btl IV (07:00)
[2019-08-18 07:04] LABS: Basophils # 0.1 10^3/uL (0.0-0.1); Basophils % 0.6 %; Eosinophils # 0.1 10^3/uL (0.0-0.8); Eosinophils % 0.6 %; Hematocrit 40.3 % (42.0-52.0); Hemoglobin 13.2 g/dL (11.7-16.6); Lymphocytes % 9.6 %; Mean Corpuscular HGB Conc 32.8 g/dL (30.0-36.0); Mean Corpuscular Hemoglobin 31.7 pg (28.0-34.0); Mean Corpuscular Volume 96.9 fL (80-94); Mean Platelet Volume 9.1 fL (7.4-10.4); Monocytes # 0.4 10^3/uL (0.2-0.9); Monocytes % 3.8 %; Neutrophils # 5.8 10^3/uL (1.8-7.7); Neutrophils % 54.2 %; Nucleated Red Blood Cells % 0 %; Platelet Count 246 10^3/cmm (130-400); Red Blood Count 4.16 10^6/uL (4.1-5.3); Red Cell Distribution Width 15.3 % (12.1-15.1); White Blood Count 10.6 10^3/uL (4.0-10.0)
[2019-08-18 07:10] LABS: Ammonia 109 umol/L (16-60)
[2019-08-18 07:11] LABS: Alkaline Phosphatase 193 IU/L (40-130); Anion Gap 17.4 (5-19); Blood Urea Nitrogen 38 mg/dL (8-23); Calcium 9.4 mg/Dl (8.8-10.2); Carbon Dioxide 19 mmol/L (22-29); Chloride 105 mmol/L (98-107); Globulin 3.2 g/dL (1.3-4.6); Glomerular Filtration Rate 37.6 mL/min (90-130); Glucose 66 mg/dL (74-106); Lactate (Lactic Acid level) 3.2 mmol/L (0.5-2.2); Magnesium 2.1 mg/dL (1.7-2.3); Phosphorus 3.3 mg/dL (2.5-4.5); Potassium 4.4 mmol/L (3.5-5.1); Sodium 137 mmol/L (136-145); Total Bilirubin 2.4 mg/dL (0.15-1.2); Total Protein 6.2 g/dL (6.6-8.7)
[2019-08-18] MEDS: cefTRIAXone 2,000 MG in sodium chloride 0.9% (plus) 50 ML 100 MG IV (07:19)
[2019-08-18 07:23] LABS: Alanine Aminotransferase 1632 U/L (0-41); Aspartate Amino Transferase 1015 U/L (0-40)
[2019-08-18 07:26] LABS: Slide Review Slide Review Perform
[2019-08-18 07:30] LABS: Partial Thromboplastin Time 35.1 SECONDS (23.9-36.7)
[2019-08-18] MEDS: dextrose 5%-sod chloride 0.45% 1,000 ML 150 ML IV (07:38)
[2019-08-18 09:32] LABS: Add Urine Microscopic? YES; Bilirubin Urine 1+ (NEGATIVE); Blood Urine Neg (Negative); Glucose Urine UA Norm (Normal); Ketones Urine Negative (Negative); Leukocyte Esterase Urine Negative (Negative); Nitrate Urine Negative (Negative); Protein Urine Trace (Negative); Urine Appearance Clear (CLEAR); Urine Color Yellow (Yellow); Urobilinogen Urine Norm (Negative)
[2019-08-18 09:46] LABS: Add Urine Culture? No; Bacteria Urine 1+; RBC Urine RARE /hpf (0-2)
--- NOTE | 2019-08-18 10:01 | PC.NURSE ---
Patients bed changed, patient given bed bath, gown change. Patients bed adjusted.
--- NOTE | 2019-08-18 13:01 | ED_ITS ---
Entered by Sadiq Webb, acting as scribe for Andrea Beltran DO Aug 17, 2019 13:04 Documented by User: Andrea Beltran DO 08/21/19 06:45 HPI - Dizziness General: Chief Complaint: Dizziness Stated Complaint: dizzy, headache Time Seen by Provider: 08/17/19 13:50 Source: patient Mode of arrival: ambulatory Limitations: no limitations PFSH ED PFSH: Statuses (acute, chronic, etc) shown below reflect problem list status as previously entered and may not be historically accurate Social History Smoking and tobacco status: never smoked Physical Exam Const: COMMON NORMALS: no apparent distress GENERAL APPEARANCE: cooperative and comfortable ORIENTATION/CONSCIOUSNESS: Yes awake, Yes oriented to person, Yes oriented to place and Yes oriented to time HENMT: COMMON NORMALS: normocephalic, head/scalp atraumatic, hearing grossly normal bilaterally, external ears normal, EAC's normal, TM's normal bilaterally, nasal mucous membranes and turbinates normal, moist oral mucous membranes and oropharynx normal HEAD & SCALP: normocephalic and atraumatic NOSE: nasal mucous membranes and turbinates normal EXTERNAL EAR: Yes external ears normal EXTERNAL AUDITORY CANAL: EAC's normal TYMPANIC MEMBRANE: TM's normal bilaterally Eye: COMMON NORMALS: PERRL, EOMs intact bilaterally, conjunctivae normal and no scleral icterus CONJUNCTIVA: Yes conjunctivae normal PUPIL: Yes PERRL Neck/C-Spine: COMMON NORMALS: full ROM, no lymphadenopathy, supple and no JVD Lymph: LYMPHATIC: no lymphadenopathy noted and no lymphedema noted Resp: COMMON NORMALS: normal respiratory effort, no retractions, no use of ac cessory muscles and clear to auscultation bilaterally AUSCULTATION: clear to auscultation bilaterally Cardio: COMMON NORMALS: no JVD, regular rate, regular rhythm and no murmurs RATE: regular rate RHYTHM: regular rhythm GI: COMMON NORMALS: normal to inspection, nondistended, normoactive bowel sounds, soft to palpation and no hepatosplenomegaly PALPATION: Yes soft and Yes no hepatosplenomegaly : COMMON NORMALS: Yes no CVA tenderness BLADDER/KIDNEY EXAM: Yes no CVA tenderness Back/Pelvis: COMMON NORMALS: no CVA tenderness LUMBAR SPINE/LOWER BACK: Yes normal to inspection Extremity: COMMON NORMALS: normal to inspection, normal capillary refill, no clubbing, cyanosis or edema, no calf tenderness and no pedal edema Neuro: SENSORIUM/ORIENTATION: Yes oriented to person, Yes oriented to place and Yes oriented to time Skin: COMMON NORMALS: no rashes or lesions noted GENERAL SKIN EXAM: no rashes or lesions noted Course ED course: Continued in the ER due to difficulty finding appropirate facility to transfer Have called several other facilities, pt needs eval for liver failure, and is likely to need evaluation for transportation. continue to have asistance from hospitalist for pt care. Finally [facility] calls back with a bed and pt will be transferred to ICU there for liver/renal eval as well as ENT eval for neck hematoma. Pt family did come in 24 hrs after pt was admitted ot the ER. Reported pt had started forming the hematoma 1 wk prior. Vital Signs: Vital signs: Vital Signs Temperature 98.6 F 08/19/19 06:30 Pulse Rate 94 08/20/19 08:03 Respiratory Rate 16 08/20/19 08:03 Blood Pressure 168/120 08/20/19 08:03 Pulse Oximetry 97 08/20/19 08:03 MDM - Dizziness Lab Data: Labs: Lab Results 08/17/19 08/17/19 08/17/19 Range/Units 13:49 13:49 13:49 WBC 22.2 H (4.0-10.0) 10^3/ uL RBC 5.04 (4.1-5.3) 10^6/u L Hgb 16.1 (11.7-16.6) g/dL Hct 49.4 (42.0-52.0) % MCV 98.0 H (80-94) fL MCH 31.9 (28.0-34.0) pg MCHC 32.6 (30.0-36.0) g/dL RDW 15.0 (12.1-15.1) % Plt Count 310 (130-400) 10^3/c mm MPV 9.3 (7.4-10.4) fL Neut % (Auto) 75.7 % Lymph % (Auto) 4.3 % [place] % (Auto) 1.8 % Eos % (Auto) 0.0 % Baso % (Auto) 0.4 % Neut # (Auto) 16.9 H (1.8-7.7) 10^3/u L Lymph # (Auto) 1.0 (0.8-4.8) 10^3/u L [place] # (Auto) 0.4 (0.2-0.9) 10^3/u L Eos # (Auto) 0.0 (0.0-0.8) 10^3/u L Baso # (Auto) 0.1 (0.0-0.1) 10^3/u L Nucleated RBC % (a uto) 0 % Total Counted (0-100) Segmented Neutroph ils % Band Neutrophils % Lymphocytes (Manua l) % Monocytes (Manual) % Absolute Monocytes (0.1-0.6) 10^3/c mm Nucleated RBCs # 0.0 /100WBC Platelet Estimate (Normal) PT 32.90 H (10.5-13.3) SECO NDS INR 3.07 H (0.8-1.2) APTT 34.7 (23.9-36.7) SECO NDS Specimen Type Sample Site ABG pH (7.35-7.45) ABG pCO2 (35-45) mmHg ABG pO2 (80.0-100.0) mmH g ABG HCO3 (22-26) mmol/L ABG Base Excess (-2.0-2.0) mmol/ L Rudy Test Hematocrit (42-52) % Hgb O2 Saturation (95-100) % Carboxyhemoglobin (0.4-20.1) %THgb Methemoglobin (0.4-1.5) % Total Hemoglobin (14-18) g/dL Floor Manager ID Sodium 132 L (136-145) mmol/L Potassium 5.4 H (3.5-5.1) mmol/L Chloride 95 L (98-107) mmol/L Carbon Dioxide 16 L (22-29) mmol/L Anion Gap 26.4 H (5-19) BUN 29 H (8-23) mg/dL Creatinine 2.2 H (0.7-1.2) mg/dL GFR Calculation 29.8 L (90-130) mL/min Glucose 98 (74-106) mg/dL POC Glucose (70-110) mg/dL Lactate (0.5-2.2) mmol/L Calcium 10.1 (8.8-10.2) mg/Dl Phosphorus (2.5-4.5) mg/dL Magnesium (1.7-2.3) mg/dL Total Bilirubin 2.3 H (0.15-1.2) mg/dL AST 3162 H (0-40) U/L ALT 3118 H (0-41) U/L Alkaline Phosphata se 228 H (40-130) IU/L Ammonia (16-60) umol/L Troponin I 6 Hour (0-15) ng/L Troponin I Hi Sens Del (0-12) ng/L Troponin T Baselin e (0-15) ng/mL Troponin T 120 Min [place] (0-15) ng/mL Delta Troponin T (0-10) ABS# Total Protein 7.2 (6.6-8.7) g/dL Albumin 3.5 (3.5-5.2) g/dL Globulin 3.7 (1.3-4.6) g/dL Urine Color (Yellow) Urine Appearance (CLEAR) Urine pH (5-7) Ur Specific Gravit y (1.005-1.030) Urine Protein (Negative) Urine Glucose (UA) (Normal) Urine Ketones (Negative) Urine Occult Blood (Negative) Urine Nitrate (Negative) Urine Bilirubin (NEGATIVE) Urine Urobilinogen (Negative) mg/dL Ur Leukocyte Carol ase (Negative) Urine RBC (0-2) /hpf Urine WBC (0-5) /hpf Ur Squamous Epith Cells (0-5) Urine Bacteria (NONE) Hepatitis A IgM Ab (Nonreactive) Hep Bs Antibody (0-8.5) Hep B Core Total A b (Nonreactive) Hepatitis C Antibo dy (Nonreactive) Blood Type 08/17/19 08/17/19 08/17/19 Range/Units 13:49 13:49 13:49 WBC (4.0-10.0) 10^3/ uL RBC (4.1-5.3) 10^6/u L Hgb (11.7-16.6) g/dL Hct (42.0-52.0) % MCV (80-94) fL MCH (28.0-34.0) pg MCHC (30.0-36.0) g/dL RDW (12.1-15.1) % Plt Count (130-400) 10^3/c mm MPV (7.4-10.4) fL Neut % (Auto) % Lymph % (Auto) % [place] % (Auto) % Eos % (Auto) % Baso % (Auto) % Neut # (Auto) (1.8-7.7) 10^3/u L Lymph # (Auto) (0.8-4.8) 10^3/u L [place] # (Auto) (0.2-0.9) 10^3/u L Eos # (Auto) (0.0-0.8) 10^3/u L Baso # (Auto) (0.0-0.1) 10^3/u L Nucleated RBC % (a uto) % Total Counted (0-100) Segmented Neutroph ils % Band Neutrophils % Lymphocytes (Manua l) % Monocytes (Manual) % Absolute Monocytes (0.1-0.6) 10^3/c mm Nucleated RBCs # /100WBC Platelet Estimate (Normal) PT (10.5-13.3) SECO NDS INR (0.8-1.2) APTT (23.9-36.7) SECO NDS Specimen Type Sample Site ABG pH (7.35-7.45) ABG pCO2 (35-45) mmHg ABG pO2 (80.0-100.0) mmH g ABG HCO3 (22-26) mmol/L ABG Base Excess (-2.0-2.0) mmol/ L Rudy Test Hematocrit (42-52) % Hgb O2 Saturation (95-100) % Carboxyhemoglobin (0.4-20.1) %THgb Methemoglobin (0.4-1.5) % Total Hemoglobin (14-18) g/dL Floor Manager ID Sodium (136-145) mmol/L Potassium (3.5-5.1) mmol/L Chloride (98-107) mmol/L Carbon Dioxide (22-29) mmol/L Anion Gap (5-19) BUN (8-23) mg/dL Creatinine (0.7-1.2) mg/dL GFR Calculation (90-130) mL/min Glucose (74-106) mg/dL POC Glucose (70-110) mg/dL Lactate 8.5 H* (0.5-2.2) mmol/L Calcium (8.8-10.2) mg/Dl Phosphorus (2.5-4.5) mg/dL Magnesium (1.7-2.3) mg/dL Total Bilirubin (0.15-1.2) mg/dL AST (0-40) U/L ALT (0-41) U/L Alkaline Phosphata se (40-130) IU/L Ammonia (16-60) umol/L Troponin I 6 Hour (0-15) ng/L Troponin I Hi Sens Del (0-12) ng/L Troponin T Baselin e 11 (0-15) ng/mL Troponin T 120 Min [place] (0-15) ng/mL Delta Troponin T (0-10) ABS# Total Protein (6.6-8.7) g/dL Albumin (3.5-5.2) g/dL Globulin (1.3-4.6) g/dL Urine Color (Yellow) Urine Appearance (CLEAR) Urine pH (5-7) Ur Specific Gravit y (1.005-1.030) Urine Protein (Negative) Urine Glucose (UA) (Normal) Urine Ketones (Negative) Urine Occult Blood (Negative) Urine Nitrate (Negative) Urine Bilirubin (NEGATIVE) Urine Urobilinogen (Negative) mg/dL Ur Leukocyte Carol ase (Negative) Urine RBC (0-2) /hpf Urine WBC (0-5) /hpf Ur Squamous Epith Cells (0-5) Urine Bacteria (NONE) Hepatitis A IgM Ab Non-reactive (Nonreactive) Hep Bs Antibody 3.5 (0-8.5) Hep B Core Total A b Reactive (Nonreactive) Hepatitis C Antibo dy Non-reactive (Nonreactive) Blood Type 08/17/19 08/17/19 08/17/19 Range/Units 15:37 15:54 16:36 WBC (4.0-10.0) 10^3/ uL RBC (4.1-5.3) 10^6/u L Hgb (11.7-16.6) g/dL Hct (42.0-52.0) % MCV (80-94) fL MCH (28.0-34.0) pg MCHC (30.0-36.0) g/dL RDW (12.1-15.1) % Plt Count (130-400) 10^3/c mm MPV (7.4-10.4) fL Neut % (Auto) % Lymph % (Auto) % [place] % (Auto) % Eos % (Auto) % Baso % (Auto) % Neut # (Auto) (1.8-7.7) 10^3/u L Lymph # (Auto) (0.8-4.8) 10^3/u L [place] # (Auto) (0.2-0.9) 10^3/u L Eos # (Auto) (0.0-0.8) 10^3/u L Baso # (Auto) (0.0-0.1) 10^3/u L Nucleated RBC % (a uto) % Total Counted (0-100) Segmented Neutroph ils % Band Neutrophils % Lymphocytes (Manua l) % Monocytes (Manual) % Absolute Monocytes (0.1-0.6) 10^3/c mm Nucleated RBCs # /100WBC Platelet Estimate (Normal) PT (10.5-13.3) SECO NDS INR (0.8-1.2) APTT (23.9-36.7) SECO NDS Specimen Type Sample Site ABG pH (7.35-7.45) ABG pCO2 (35-45) mmHg ABG pO2 (80.0-100.0) mmH g ABG HCO3 (22-26) mmol/L ABG Base Excess (-2.0-2.0) mmol/ L Rudy Test Hematocrit (42-52) % Hgb O2 Saturation (95-100) % Carboxyhemoglobin (0.4-20.1) %THgb Methemoglobin (0.4-1.5) % Total Hemoglobin (14-18) g/dL Floor Manager ID Sodium (136-145) mmol/L Potassium (3.5-5.1) mmol/L Chloride (98-107) mmol/L Carbon Dioxide (22-29) mmol/L Anion Gap (5-19) BUN (8-23) mg/dL Creatinine (0.7-1.2) mg/dL GFR Calculation (90-130) mL/min Glucose (74-106) mg/dL POC Glucose (70-110) mg/dL Lactate (0.5-2.2) mmol/L Calcium (8.8-10.2) mg/Dl Phosphorus (2.5-4.5) mg/dL Magnesium (1.7-2.3) mg/dL Total Bilirubin (0.15-1.2) mg/dL AST (0-40) U/L ALT (0-41) U/L Alkaline Phosphata se (40-130) IU/L Ammonia 108 H (16-60) umol/L Troponin I 6 Hour (0-15) ng/L Troponin I Hi Sens Del (0-12) ng/L Troponin T Baselin e (0-15) ng/mL Troponin T 120 Min [place] 10.56 (0-15) ng/mL Delta Troponin T -0.44 L (0-10) ABS# Total Protein (6.6-8.7) g/dL Albumin (3.5-5.2) g/dL Globulin (1.3-4.6) g/dL Urine Color (Yellow) Urine Appearance (CLEAR) Urine pH (5-7) Ur Specific Gravit y (1.005-1.030) Urine Protein (Negative) Urine Glucose (UA) (Normal) Urine Ketones (Negative) Urine Occult Blood (Negative) Urine Nitrate (Negative) Urine Bilirubin (NEGATIVE) Urine Urobilinogen (Negative) mg/dL Ur Leukocyte Carol ase (Negative) Urine RBC (0-2) /hpf Urine WBC (0-5) /hpf Ur Squamous Epith Cells (0-5) Urine Bacteria (NONE) Hepatitis A IgM Ab (Nonreactive) Hep Bs Antibody (0-8.5) Hep B Core Total A b (Nonreactive) Hepatitis C Antibo dy (Nonreactive) Blood Type O Negative 08/17/19 08/18/19 08/18/19 Range/Units 19:24 06:33 06:47 WBC 10.6 H (4.0-10.0) 10^3/ uL RBC 4.16 (4.1-5.3) 10^6/u L Hgb 13.2 (11.7-16.6) g/dL Hct 40.3 L (42.0-52.0) % MCV 96.9 H (80-94) fL MCH 31.7 (28.0-34.0) pg MCHC 32.8 (30.0-36.0) g/dL RDW 15.3 H (12.1-15.1) % Plt Count 246 (130-400) 10^3/c mm MPV 9.1 (7.4-10.4) fL Neut % (Auto) 54.2 % Lymph % (Auto) 9.6 % [place] % (Auto) 3.8 % Eos % (Auto) 0.6 % Baso % (Auto) 0.6 % Neut # (Auto) 5.8 (1.8-7.7) 10^3/u L Lymph # (Auto) 1.0 (0.8-4.8) 10^3/u L [place] # (Auto) 0.4 (0.2-0.9) 10^3/u L Eos # (Auto) 0.1 (0.0-0.8) 10^3/u L Baso # (Auto) 0.1 (0.0-0.1) 10^3/u L Nucleated RBC % (a uto) 0 % Total Counted (0-100) Segmented Neutroph ils % Band Neutrophils % Lymphocytes (Manua l) % Monocytes (Manual) % Absolute Monocytes (0.1-0.6) 10^3/c mm Nucleated RBCs # 0.0 /100WBC Platelet Estimate (Normal) PT (10.5-13.3) SECO NDS INR (0.8-1.2) APTT (23.9-36.7) SECO NDS Specimen Type Arterial Sample Site Radial, left ABG pH 7.43 (7.35-7.45) ABG pCO2 31.6 L (35-45) mmHg ABG pO2 75.5 L (80.0-100.0) mmH g ABG HCO3 20.9 L (22-26) mmol/L ABG Base Excess -2.5 L (-2.0-2.0) mmol/ L Rudy Test Pos Hematocrit 44.1 (42-52) % Hgb O2 Saturation 93.9 L (95-100) % Carboxyhemoglobin 0.6 (0.4-20.1) %THgb Methemoglobin 0.8 (0.4-1.5) % Total Hemoglobin 14.4 (14-18) g/dL Floor Manager ID [email or web address] Sodium (136-145) mmol/L Potassium (3.5-5.1) mmol/L Chloride (98-107) mmol/L Carbon Dioxide (22-29) mmol/L Anion Gap (5-19) BUN (8-23) mg/dL Creatinine (0.7-1.2) mg/dL GFR Calculation (90-130) mL/min Glucose (74-106) mg/dL POC Glucose (70-110) mg/dL Lactate (0.5-2.2) mmol/L Calcium (8.8-10.2) mg/Dl Phosphorus (2.5-4.5) mg/dL Magnesium (1.7-2.3) mg/dL Total Bilirubin (0.15-1.2) mg/dL AST (0-40) U/L ALT (0-41) U/L Alkaline Phosphata se (40-130) IU/L Ammonia (16-60) umol/L Troponin I 6 Hour 10.86 (0-15) ng/L Troponin I Hi Sens Del (0-12) ng/L Troponin T Baselin e (0-15) ng/mL Troponin T 120 Min [place] (0-15) ng/mL Delta Troponin T (0-10) ABS# Total Protein (6.6-8.7) g/dL Albumin (3.5-5.2) g/dL Globulin (1.3-4.6) g/dL Urine Color (Yellow) Urine Appearance (CLEAR) Urine pH (5-7) Ur Specific Gravit y (1.005-1.030) Urine Protein (Negative) Urine Glucose (UA) (Normal) Urine Ketones (Negative) Urine Occult Blood (Negative) Urine Nitrate (Negative) Urine Bilirubin (NEGATIVE) Urine Urobilinogen (Negative) mg/dL Ur Leukocyte Carol ase (Negative) Urine RBC (0-2) /hpf Urine WBC (0-5) /hpf Ur Squamous Epith Cells (0-5) Urine Bacteria (NONE) Hepatitis A IgM Ab (Nonreactive) Hep Bs Antibody (0-8.5) Hep B Core Total A b (Nonreactive) Hepatitis C Antibo dy (Nonreactive) Blood Type 08/18/19 08/18/19 08/18/19 Range/Units 06:47 06:47 06:47 WBC (4.0-10.0) 10^3/ uL RBC (4.1-5.3) 10^6/u L Hgb (11.7-16.6) g/dL Hct (42.0-52.0) % MCV (80-94) fL MCH (28.0-34.0) pg MCHC (30.0-36.0) g/dL RDW (12.1-15.1) % Plt Count (130-400) 10^3/c mm MPV (7.4-10.4) fL Neut % (Auto) % Lymph % (Auto) % [place] % (Auto) % Eos % (Auto) % Baso % (Auto) % Neut # (Auto) (1.8-7.7) 10^3/u L Lymph # (Auto) (0.8-4.8) 10^3/u L [place] # (Auto) (0.2-0.9) 10^3/u L Eos # (Auto) (0.0-0.8) 10^3/u L Baso # (Auto) (0.0-0.1) 10^3/u L Nucleated RBC % (a uto) % Total Counted (0-100) Segmented Neutroph ils % Band Neutrophils % Lymphocytes (Manua l) % Monocytes (Manual) % Absolute Monocytes (0.1-0.6) 10^3/c mm Nucleated RBCs # /100WBC Platelet Estimate (Normal) PT (10.5-13.3) SECO NDS INR (0.8-1.2) APTT (23.9-36.7) SECO NDS Specimen Type Sample Site ABG pH (7.35-7.45) ABG pCO2 (35-45) mmHg ABG pO2 (80.0-100.0) mmH g ABG HCO3 (22-26) mmol/L ABG Base Excess (-2.0-2.0) mmol/ L Rudy Test Hematocrit (42-52) % Hgb O2 Saturation (95-100) % Carboxyhemoglobin (0.4-20.1) %THgb Methemoglobin (0.4-1.5) % Total Hemoglobin (14-18) g/dL Floor Manager ID Sodium 137 (136-145) mmol/L Potassium 4.4 (3.5-5.1) mmol/L Chloride 105 (98-107) mmol/L Carbon Dioxide 19 L (22-29) mmol/L Anion Gap 17.4 (5-19) BUN 38 H (8-23) mg/dL Creatinine 1.8 H (0.7-1.2) mg/dL GFR Calculation 37.6 L (90-130) mL/min Glucose 66 L (74-106) mg/dL POC Glucose (70-110) mg/dL Lactate 3.2 H (0.5-2.2) mmol/L Calcium 9.4 (8.8-10.2) mg/Dl Phosphorus 3.3 (2.5-4.5) mg/dL Magnesium 2.1 (1.7-2.3) mg/dL Total Bilirubin 2.4 H (0.15-1.2) mg/dL AST 1015 H (0-40) U/L ALT 1632 H (0-41) U/L Alkaline Phosphata se 193 H (40-130) IU/L Ammonia 109 H (16-60) umol/L Troponin I 6 Hour (0-15) ng/L Troponin I Hi Sens Del (0-12) ng/L Troponin T Baselin e (0-15) ng/mL Troponin T 120 Min [place] (0-15) ng/mL Delta Troponin T (0-10) ABS# Total Protein 6.2 L (6.6-8.7) g/dL Albumin 3.0 L (3.5-5.2) g/dL Globulin 3.2 (1.3-4.6) g/dL Urine Color (Yellow) Urine Appearance (CLEAR) Urine pH (5-7) Ur Specific Gravit y (1.005-1.030) Urine Protein (Negative) Urine Glucose (UA) (Normal) Urine Ketones (Negative) Urine Occult Blood (Negative) Urine Nitrate (Negative) Urine Bilirubin (NEGATIVE) Urine Urobilinogen (Negative) mg/dL Ur Leukocyte Carol ase (Negative) Urine RBC (0-2) /hpf Urine WBC (0-5) /hpf Ur Squamous Epith Cells (0-5) Urine Bacteria (NONE) Hepatitis A IgM Ab (Nonreactive) Hep Bs Antibody (0-8.5) Hep B Core Total A b (Nonreactive) Hepatitis C Antibo dy (Nonreactive) Blood Type 08/18/19 08/18/19 08/18/19 Range/Units 06:47 08:00 20:22 WBC (4.0-10.0) 10^3/ uL RBC (4.1-5.3) 10^6/u L Hgb (11.7-16.6) g/dL Hct (42.0-52.0) % MCV (80-94) fL MCH (28.0-34.0) pg MCHC (30.0-36.0) g/dL RDW (12.1-15.1) % Plt Count (130-400) 10^3/c mm MPV (7.4-10.4) fL Neut % (Auto) % Lymph % (Auto) % [place] % (Auto) % Eos % (Auto) % Baso % (Auto) % Neut # (Auto) (1.8-7.7) 10^3/u L Lymph # (Auto) (0.8-4.8) 10^3/u L [place] # (Auto) (0.2-0.9) 10^3/u L Eos # (Auto) (0.0-0.8) 10^3/u L Baso # (Auto) (0.0-0.1) 10^3/u L Nucleated RBC % (a uto) % Total Counted (0-100) Segmented Neutroph ils % Band Neutrophils % Lymphocytes (Manua l) % Monocytes (Manual) % Absolute Monocytes (0.1-0.6) 10^3/c mm Nucleated RBCs # /100WBC Platelet Estimate (Normal) PT 28.00 H (10.5-13.3) SECO NDS INR 2.50 H (0.8-1.2) APTT 35.1 (23.9-36.7) SECO NDS Specimen Type Sample Site ABG pH (7.35-7.45) ABG pCO2 (35-45) mmHg ABG pO2 (80.0-100.0) mmH g ABG HCO3 (22-26) mmol/L ABG Base Excess (-2.0-2.0) mmol/ L Rudy Test Hematocrit (42-52) % Hgb O2 Saturation (95-100) % Carboxyhemoglobin (0.4-20.1) %THgb Methemoglobin (0.4-1.5) % Total Hemoglobin (14-18) g/dL Floor Manager ID Sodium (136-145) mmol/L Potassium (3.5-5.1) mmol/L Chloride (98-107) mmol/L Carbon Dioxide (22-29) mmol/L Anion Gap (5-19) BUN (8-23) mg/dL Creatinine (0.7-1.2) mg/dL GFR Calculation (90-130) mL/min Glucose (74-106) mg/dL POC Glucose 101 (70-110) mg/dL Lactate (0.5-2.2) mmol/L Calcium (8.8-10.2) mg/Dl Phosphorus (2.5-4.5) mg/dL Magnesium (1.7-2.3) mg/dL Total Bilirubin (0.15-1.2) mg/dL AST (0-40) U/L ALT (0-41) U/L Alkaline Phosphata se (40-130) IU/L Ammonia (16-60) umol/L Troponin I 6 Hour (0-15) ng/L Troponin I Hi Sens Del (0-12) ng/L Troponin T Baselin e (0-15) ng/mL Troponin T 120 Min [place] (0-15) ng/mL Delta Troponin T (0-10) ABS# Total Protein (6.6-8.7) g/dL Albumin (3.5-5.2) g/dL Globulin (1.3-4.6) g/dL Urine Color Yellow (Yellow) Urine Appearance Clear (CLEAR) Urine pH 5.0 (5-7) Ur Specific Gravit y 1.010 (1.005-1.030) Urine Protein Trace (Negative) Urine Glucose (UA) Norm (Normal) Urine Ketones Negative (Negative) Urine Occult Blood Neg (Negative) Urine Nitrate Negative (Negative) Urine Bilirubin 1+ H (NEGATIVE) Urine Urobilinogen Norm (Negative) mg/dL Ur Leukocyte Carol ase Negative (Negative) Urine RBC Rare (0-2) /hpf Urine WBC None (0-5) /hpf Ur Squamous Epith Cells None (0-5) Urine Bacteria 1+ H (NONE) Hepatitis A IgM Ab (Nonreactive) Hep Bs Antibody (0-8.5) Hep B Core Total A b (Nonreactive) Hepatitis C Antibo dy (Nonreactive) Blood Type 08/19/19 08/19/19 08/19/19 Range/Units 02:40 02:40 02:40 WBC 12.7 H (4.0-10.0) 10^3/ uL RBC 4.20 (4.1-5.3) 10^6/u L Hgb 13.5 (11.7-16.6) g/dL Hct 41.7 L (42.0-52.0) % MCV 99.3 H (80-94) fL MCH 32.1 (28.0-34.0) pg MCHC 32.4 (30.0-36.0) g/dL RDW 15.2 H (12.1-15.1) % Plt Count 213 (130-400) 10^3/c mm MPV 9.0 (7.4-10.4) fL Neut % (Auto) % Lymph % (Auto) % [place] % (Auto) % Eos % (Auto) % Baso % (Auto) % Neut # (Auto) (1.8-7.7) 10^3/u L Lymph # (Auto) (0.8-4.8) 10^3/u L [place] # (Auto) (0.2-0.9) 10^3/u L Eos # (Auto) (0.0-0.8) 10^3/u L Baso # (Auto) (0.0-0.1) 10^3/u L Nucleated RBC % (a uto) % Total Counted 100 (0-100) Segmented Neutroph ils 70 % Band Neutrophils 4.0 % Lymphocytes (Manua l) 24 % Monocytes (Manual) 2.0 % Absolute Monocytes 0.3 (0.1-0.6) 10^3/c mm Nucleated RBCs # /100WBC Platelet Estimate Decreased (Normal) PT 26.30 H (10.5-13.3) SECO NDS INR 2.32 H (0.8-1.2) APTT (23.9-36.7) SECO NDS Specimen Type Sample Site ABG pH (7.35-7.45) ABG pCO2 (35-45) mmHg ABG pO2 (80.0-100.0) mmH g ABG HCO3 (22-26) mmol/L ABG Base Excess (-2.0-2.0) mmol/ L Rudy Test Hematocrit (42-52) % Hgb O2 Saturation (95-100) % Carboxyhemoglobin (0.4-20.1) %THgb Methemoglobin (0.4-1.5) % Total Hemoglobin (14-18) g/dL Floor Manager ID Sodium 136 (136-145) mmol/L Potassium 3.9 (3.5-5.1) mmol/L Chloride 105 (98-107) mmol/L Carbon Dioxide 20 L (22-29) mmol/L Anion Gap 14.9 (5-19) BUN 49 H (8-23) mg/dL Creatinine 1.4 H (0.7-1.2) mg/dL GFR Calculation 50.2 L (90-130) mL/min Glucose 93 (74-106) mg/dL POC Glucose (70-110) mg/dL Lactate (0.5-2.2) mmol/L Calcium 9.4 (8.8-10.2) mg/Dl Phosphorus (2.5-4.5) mg/dL Magnesium (1.7-2.3) mg/dL Total Bilirubin 2.0 H (0.15-1.2) mg/dL AST 299 H (0-40) U/L ALT 1074 H (0-41) U/L Alkaline Phosphata se 270 H (40-130) IU/L Ammonia (16-60) umol/L Troponin I 6 Hour (0-15) ng/L Troponin I Hi Sens Del (0-12) ng/L Troponin T Baselin e (0-15) ng/mL Troponin T 120 Min [place] (0-15) ng/mL Delta Troponin T (0-10) ABS# Total Protein 6.6 (6.6-8.7) g/dL Albumin 2.7 L (3.5-5.2) g/dL Globulin 3.9 (1.3-4.6) g/dL Urine Color (Yellow) Urine Appearance (CLEAR) Urine pH (5-7) Ur Specific Gravit y (1.005-1.030) Urine Protein (Negative) Urine Glucose (UA) (Normal) Urine Ketones (Negative) Urine Occult Blood (Negative) Urine Nitrate (Negative) Urine Bilirubin (NEGATIVE) Urine Urobilinogen (Negative) mg/dL Ur Leukocyte Carol ase (Negative) Urine RBC (0-2) /hpf Urine WBC (0-5) /hpf Ur Squamous Epith Cells (0-5) Urine Bacteria (NONE) Hepatitis A IgM Ab (Nonreactive) Hep Bs Antibody (0-8.5) Hep B Core Total A b (Nonreactive) Hepatitis C Antibo dy (Nonreactive) Blood Type 08/19/19 08/19/19 08/19/19 Range/Units 02:40 10:18 12:21 WBC (4.0-10.0) 10^3/ uL RBC (4.1-5.3) 10^6/u L Hgb (11.7-16.6) g/dL Hct (42.0-52.0) % MCV (80-94) fL MCH (28.0-34.0) pg MCHC (30.0-36.0) g/dL RDW (12.1-15.1) % Plt Count (130-400) 10^3/c mm MPV (7.4-10.4) fL Neut % (Auto) % Lymph % (Auto) % [place] % (Auto) % Eos % (Auto) % Baso % (Auto) % Neut # (Auto) (1.8-7.7) 10^3/u L Lymph # (Auto) (0.8-4.8) 10^3/u L [place] # (Auto) (0.2-0.9) 10^3/u L Eos # (Auto) (0.0-0.8) 10^3/u L Baso # (Auto) (0.0-0.1) 10^3/u L Nucleated RBC % (a uto) % Total Counted (0-100) Segmented Neutroph ils % Band Neutrophils % Lymphocytes (Manua l) % Monocytes (Manual) % Absolute Monocytes (0.1-0.6) 10^3/c mm Nucleated RBCs # /100WBC Platelet Estimate (Normal) PT (10.5-13.3) SECO NDS INR (0.8-1.2) APTT (23.9-36.7) SECO NDS Specimen Type Sample Site ABG pH (7.35-7.45) ABG pCO2 (35-45) mmHg ABG pO2 (80.0-100.0) mmH g ABG HCO3 (22-26) mmol/L ABG Base Excess (-2.0-2.0) mmol/ L Rudy Test Hematocrit (42-52) % Hgb O2 Saturation (95-100) % Carboxyhemoglobin (0.4-20.1) %THgb Methemoglobin (0.4-1.5) % Total Hemoglobin (14-18) g/dL Floor Manager ID Sodium (136-145) mmol/L Potassium (3.5-5.1) mmol/L Chloride (98-107) mmol/L Carbon Dioxide (22-29) mmol/L Anion Gap (5-19) BUN (8-23) mg/dL Creatinine (0.7-1.2) mg/dL GFR Calculation (90-130) mL/min Glucose (74-106) mg/dL POC Glucose (70-110) mg/dL Lactate (0.5-2.2) mmol/L Calcium (8.8-10.2) mg/Dl Phosphorus (2.5-4.5) mg/dL Magnesium (1.7-2.3) mg/dL Total Bilirubin (0.15-1.2) mg/dL AST (0-40) U/L ALT (0-41) U/L Alkaline Phosphata se (40-130) IU/L Ammonia 96 H (16-60) umol/L Troponin I 6 Hour (0-15) ng/L Troponin I Hi Sens Del (0-12) ng/L Troponin T Baselin e 14 (0-15) ng/mL Troponin T 120 Min [place] 14.67 (0-15) ng/mL Delta Troponin T 0.67 (0-10) ABS# Total Protein (6.6-8.7) g/dL Albumin (3.5-5.2) g/dL Globulin (1.3-4.6) g/dL Urine Color (Yellow) Urine Appearance (CLEAR) Urine pH (5-7) Ur Specific Gravit y (1.005-1.030) Urine Protein (Negative) Urine Glucose (UA) (Normal) Urine Ketones (Negative) Urine Occult Blood (Negative) Urine Nitrate (Negative) Urine Bilirubin (NEGATIVE) Urine Urobilinogen (Negative) mg/dL Ur Leukocyte Carol ase (Negative) Urine RBC (0-2) /hpf Urine WBC (0-5) /hpf Ur Squamous Epith Cells (0-5) Urine Bacteria (NONE) Hepatitis A IgM Ab (Nonreactive) Hep Bs Antibody (0-8.5) Hep B Core Total A b (Nonreactive) Hepatitis C Antibo dy (Nonreactive) Blood Type 08/19/19 Range/Units 16:15 WBC (4.0-10.0) 10^3/ uL RBC (4.1-5.3) 10^6/u L Hgb (11.7-16.6) g/dL Hct (42.0-52.0) % MCV (80-94) fL MCH (28.0-34.0) pg MCHC (30.0-36.0) g/dL RDW (12.1-15.1) % Plt Count (130-400) 10^3/c mm MPV (7.4-10.4) fL Neut % (Auto) % Lymph % (Auto) % [place] % (Auto) % Eos % (Auto) % Baso % (Auto) % Neut # (Auto) (1.8-7.7) 10^3/u L Lymph # (Auto) (0.8-4.8) 10^3/u L [place] # (Auto) (0.2-0.9) 10^3/u L Eos # (Auto) (0.0-0.8) 10^3/u L Baso # (Auto) (0.0-0.1) 10^3/u L Nucleated RBC % (a uto) % Total Counted (0-100) Segmented Neutroph ils % Band Neutrophils % Lymphocytes (Manua l) % Monocytes (Manual) % Absolute Monocytes (0.1-0.6) 10^3/c mm Nucleated RBCs # /100WBC Platelet Estimate (Normal) PT (10.5-13.3) SECO NDS INR (0.8-1.2) APTT (23.9-36.7) SECO NDS Specimen Type Sample Site ABG pH (7.35-7.45) ABG pCO2 (35-45) mmHg ABG pO2 (80.0-100.0) mmH g ABG HCO3 (22-26) mmol/L ABG Base Excess (-2.0-2.0) mmol/ L Rudy Test Hematocrit (42-52) % Hgb O2 Saturation (95-100) % Carboxyhemoglobin (0.4-20.1) %THgb Methemoglobin (0.4-1.5) % Total Hemoglobin (14-18) g/dL Floor Manager ID Sodium (136-145) mmol/L Potassium (3.5-5.1) mmol/L Chloride (98-107) mmol/L Carbon Dioxide (22-29) mmol/L Anion Gap (5-19) BUN (8-23) mg/dL Creatinine (0.7-1.2) mg/dL GFR Calculation (90-130) mL/min Glucose (74-106) mg/dL POC Glucose (70-110) mg/dL Lactate (0.5-2.2) mmol/L Calcium (8.8-10.2) mg/Dl Phosphorus (2.5-4.5) mg/dL Magnesium (1.7-2.3) mg/dL Total Bilirubin (0.15-1.2) mg/dL AST (0-40) U/L ALT (0-41) U/L Alkaline Phosphata se (40-130) IU/L Ammonia (16-60) umol/L Troponin I 6 Hour 12.79 (0-15) ng/L Troponin I Hi Sens Del -1.21 L (0-12) ng/L Troponin T Baselin e (0-15) ng/mL Troponin T 120 Min [place] (0-15) ng/mL Delta Troponin T (0-10) ABS# Total Protein (6.6-8.7) g/dL Albumin (3.5-5.2) g/dL Globulin (1.3-4.6) g/dL Urine Color (Yellow) Urine Appearance (CLEAR) Urine pH (5-7) Ur Specific Gravit y (1.005-1.030) Urine Protein (Negative) Urine Glucose (UA) (Normal) Urine Ketones (Negative) Urine Occult Blood (Negative) Urine Nitrate (Negative) Urine Bilirubin (NEGATIVE) Urine Urobilinogen (Negative) mg/dL Ur Leukocyte Carol ase (Negative) Urine RBC (0-2) /hpf Urine WBC (0-5) /hpf Ur Squamous Epith Cells (0-5) Urine Bacteria (NONE) Hepatitis A IgM Ab (Nonreactive) Hep Bs Antibody (0-8.5) Hep B Core Total A b (Nonreactive) Hepatitis C Antibo dy (Nonreactive) Blood Type Imaging Data^: CT Head: Radiologist's impression: Patient: Canelo Lara MR#: [id number] : 1950 Acct:[id number] Age/Sex: 69 / M ADM Date: 08/17/19 Loc: ER Attending Dr: Ordering Physician: Andrea Beltran DO Date of Service: 08/18/19 Procedure(s): CT angio neck 58416 Accession Number(s): [id number] cc: Andrea Beltran DO PROCEDURE INFORMATION: Exam: CT Angiography Neck Without And With Contrast Exam date and time: 08/18/2019 6:22 AM Age: 69 years old Clinical indication: Injury or trauma; Injury history: Blunt impact to right side of neck; Initial encounter; Blunt trauma; Patient HX: Patient sustained blunt blow to right side of neck one week ago. Soft tissue hematoma to right side of neck has expanded since arrival to er yesterday afternoon. ; Additional info: Expanding TECHNIQUE: Imaging protocol: Computed tomographic angiography of the neck without and with intravenous contrast. 3D rendering: MIP and/or 3D reconstructed images were created by the technologist. Total DLP: 2050.23 mGy-cm Radiation optimization: All CT scans at this facility use at least one of these dose optimization techniques: automated exposure control; mA and/or kV adjustment per patient size (includes targeted exams where dose is matched to clinical indication); or iterative reconstruction. Contrast material: VISI 320; Contrast volume: 95 ml; Contrast route: 20G; COMPARISON: CT angio neck [id number] 08/17/2019 2:22 PM FINDINGS: VASCULATURE: Right common carotid artery: There are moderate calcified atherosclerotic changes involving the right common carotid artery bifurcation. Right internal carotid artery: Unremarkable extracranial segment. No stenosis. No dissection or occlusion. Right external carotid artery: Unremarkable. No occlusion or stenosis of the origin. Right vertebral artery: Unremarkable. No stenosis. No dissection or occlusion. Left common carotid artery: There are moderate calcified atherosclerotic changes involving the left common carotid artery bifurcation. Left internal carotid artery: There are moderate calcified atherosclerotic changes involving the origin of the left internal carotid artery. Left external carotid artery: Unremarkable. No occlusion or stenosis of the origin. Left vertebral artery: Unremarkable. No stenosis. No dissection or occlusion. NECK: Bones/joints: No acute fracture. Soft tissues: There is extensive soft tissue edema, swelling, and induration of the right neck consistent with patient's recent trauma. There is a large hematoma deep to the sternocleidomastoid muscle, similar in appearance to prior study. No contrast extravasation is identified. Aside from moderate atherosclerotic changes, the underlying cervical carotid arteries are within normal limits. CT/CT angio neck 63560 IMPRESSION: There is extensive soft tissue edema, swelling, and induration of the right neck consistent with patient's recent trauma. There is a large hematoma deep to the sternocleidomastoid muscle, similar in appearance to prior study. No contrast extravasation is identified. Aside from moderate atherosclerotic changes, the underlying cervical carotid arteries are within normal limits. Radiation Dose CTDIVOL = (mGy): DLP = 2050.23 (mGy-cm) Dictated By: Abilio Rodriguez 08/18/19 08 Signed By: Abilio Rodriguez 08/18/19 08 Discharge Plan Discharge Patient Disposition: Xfer Other Clinical Impression: Acute hepatic failure, Hepatic encephalopathy, Acute renal failure, Acute hyperkalemia, Hematoma of neck Condition: Stable Discharge Orders: Transfer Out of Facility (Order); Ordered 08/20/19 Ordered By: Andrea Beltran Discharge Date/Time: 08/20/19 08:11 Sign Out Sign Out Data: Patient Sign Out occurred on 08/19/19 at 06:01. Patient's care was discussed, and care was transferred from Celeste Valdez MD to Andrea Beltran DO. Sign Out Comment: Patient still awaiting transfer to [facility] has been accepted. We are waiting on a room and are continuing to monitor him closely. Patient care turned over to Dr. Beltran at shift change Last updated by Celeste Valdez MD at 08/19/19 05:33 Coding Level of Care Code ED Medical Van Driver for Chg Fwd Documented by User: Celeste Valdez MD 08/19/19 06:05 HPI - Dizziness General: Chief Complaint: Dizziness Stated Complaint: dizzy, headache Time Seen by Provider: 08/17/19 13:50 PFSH ED PFSH: Statuses (acute, chronic, etc) shown below reflect problem list status as previously entered and may not be historically accurate Social History Smoking and tobacco status: never smoked Course Vital Signs: Vital signs: Vital Signs Temperature 98.6 F 08/19/19 06:30 Pulse Rate 94 08/20/19 08:03 Respiratory Rate 16 08/20/19 08:03 Blood Pressure 168/120 08/20/19 08:03 Pulse Oximetry 97 08/20/19 08:03 MDM - Dizziness Lab Data: Labs: Lab Results 08/17/19 08/17/19 08/17/19 Range/Units 13:49 13:49 13:49 WBC 22.2 H (4.0-10.0) 10^3/ uL RBC 5.04 (4.1-5.3) 10^6/u L Hgb 16.1 (11.7-16.6) g/dL Hct 49.4 (42.0-52.0) % MCV 98.0 H (80-94) fL MCH 31.9 (28.0-34.0) pg MCHC 32.6 (30.0-36.0) g/dL RDW 15.0 (12.1-15.1) % Plt Count 310 (130-400) 10^3/c mm MPV 9.3 (7.4-10.4) fL Neut % (Auto) 75.7 % Lymph % (Auto) 4.3 % [place] % (Auto) 1.8 % Eos % (Auto) 0.0 % Baso % (Auto) 0.4 % Neut # (Auto) 16.9 H (1.8-7.7) 10^3/u L Lymph # (Auto) 1.0 (0.8-4.8) 10^3/u L [place] # (Auto) 0.4 (0.2-0.9) 10^3/u L Eos # (Auto) 0.0 (0.0-0.8) 10^3/u L Baso # (Auto) 0.1 (0.0-0.1) 10^3/u L Nucleated RBC % (a uto) 0 % Total Counted (0-100) Segmented Neutroph ils % Band Neutrophils % Lymphocytes (Manua l) % Monocytes (Manual) % Absolute Monocytes (0.1-0.6) 10^3/c mm Nucleated RBCs # 0.0 /100WBC Platelet Estimate (Normal) PT 32.90 H (10.5-13.3) SECO NDS INR 3.07 H (0.8-1.2) APTT 34.7 (23.9-36.7) SECO NDS Specimen Type Sample Site ABG pH (7.35-7.45) ABG pCO2 (35-45) mmHg ABG pO2 (80.0-100.0) mmH g ABG HCO3 (22-26) mmol/L ABG Base Excess (-2.0-2.0) mmol/ L Rudy Test Hematocrit (42-52) % Hgb O2 Saturation (95-100) % Carboxyhemoglobin (0.4-20.1) %THgb Methemoglobin (0.4-1.5) % Total Hemoglobin (14-18) g/dL Floor Manager ID Sodium 132 L (136-145) mmol/L Potassium 5.4 H (3.5-5.1) mmol/L Chloride 95 L (98-107) mmol/L Carbon Dioxide 16 L (22-29) mmol/L Anion Gap 26.4 H (5-19) BUN 29 H (8-23) mg/dL Creatinine 2.2 H (0.7-1.2) mg/dL GFR Calculation 29.8 L (90-130) mL/min Glucose 98 (74-106) mg/dL POC Glucose (70-110) mg/dL Lactate (0.5-2.2) mmol/L Calcium 10.1 (8.8-10.2) mg/Dl Phosphorus (2.5-4.5) mg/dL Magnesium (1.7-2.3) mg/dL Total Bilirubin 2.3 H (0.15-1.2) mg/dL AST 3162 H (0-40) U/L ALT 3118 H (0-41) U/L Alkaline Phosphata se 228 H (40-130) IU/L Ammonia (16-60) umol/L Troponin I 6 Hour (0-15) ng/L Troponin I Hi Sens Del (0-12) ng/L Troponin T Baselin e (0-15) ng/mL Troponin T 120 Min [place] (0-15) ng/mL Delta Troponin T (0-10) ABS# Total Protein 7.2 (6.6-8.7) g/dL Albumin 3.5 (3.5-5.2) g/dL Globulin 3.7 (1.3-4.6) g/dL Urine Color (Yellow) Urine Appearance (CLEAR) Urine pH (5-7) Ur Specific Gravit y (1.005-1.030) Urine Protein (Negative) Urine Glucose (UA) (Normal) Urine Ketones (Negative) Urine Occult Blood (Negative) Urine Nitrate (Negative) Urine Bilirubin (NEGATIVE) Urine Urobilinogen (Negative) mg/dL Ur Leukocyte Carol ase (Negative) Urine RBC (0-2) /hpf Urine WBC (0-5) /hpf Ur Squamous Epith Cells (0-5) Urine Bacteria (NONE) Hepatitis A IgM Ab (Nonreactive) Hep Bs Antibody (0-8.5) Hep B Core Total A b (Nonreactive) Hepatitis C Antibo dy (Nonreactive) Blood Type 08/17/19 08/17/19 08/17/19 Range/Units 13:49 13:49 13:49 WBC (4.0-10.0) 10^3/ uL RBC (4.1-5.3) 10^6/u L Hgb (11.7-16.6) g/dL Hct (42.0-52.0) % MCV (80-94) fL MCH (28.0-34.0) pg MCHC (30.0-36.0) g/dL RDW (12.1-15.1) % Plt Count (130-400) 10^3/c mm MPV (7.4-10.4) fL Neut % (Auto) % Lymph % (Auto) % [place] % (Auto) % Eos % (Auto) % Baso % (Auto) % Neut # (Auto) (1.8-7.7) 10^3/u L Lymph # (Auto) (0.8-4.8) 10^3/u L [place] # (Auto) (0.2-0.9) 10^3/u L Eos # (Auto) (0.0-0.8) 10^3/u L Baso # (Auto) (0.0-0.1) 10^3/u L Nucleated RBC % (a uto) % Total Counted (0-100) Segmented Neutroph ils % Band Neutrophils % Lymphocytes (Manua l) % Monocytes (Manual) % Absolute Monocytes (0.1-0.6) 10^3/c mm Nucleated RBCs # /100WBC Platelet Estimate (Normal) PT (10.5-13.3) SECO NDS INR (0.8-1.2) APTT (23.9-36.7) SECO NDS Specimen Type Sample Site ABG pH (7.35-7.45) ABG pCO2 (35-45) mmHg ABG pO2 (80.0-100.0) mmH g ABG HCO3 (22-26) mmol/L ABG Base Excess (-2.0-2.0) mmol/ L Rudy Test Hematocrit (42-52) % Hgb O2 Saturation (95-100) % Carboxyhemoglobin (0.4-20.1) %THgb Methemoglobin (0.4-1.5) % Total Hemoglobin (14-18) g/dL Floor Manager ID Sodium (136-145) mmol/L Potassium (3.5-5.1) mmol/L Chloride (98-107) mmol/L Carbon Dioxide (22-29) mmol/L Anion Gap (5-19) BUN (8-23) mg/dL Creatinine (0.7-1.2) mg/dL GFR Calculation (90-130) mL/min Glucose (74-106) mg/dL POC Glucose (70-110) mg/dL Lactate 8.5 H* (0.5-2.2) mmol/L Calcium (8.8-10.2) mg/Dl Phosphorus (2.5-4.5) mg/dL Magnesium (1.7-2.3) mg/dL Total Bilirubin (0.15-1.2) mg/dL AST (0-40) U/L ALT (0-41) U/L Alkaline Phosphata se (40-130) IU/L Ammonia (16-60) umol/L Troponin I 6 Hour (0-15) ng/L Troponin I Hi Sens Del (0-12) ng/L Troponin T Baselin e 11 (0-15) ng/mL Troponin T 120 Min [place] (0-15) ng/mL Delta Troponin T (0-10) ABS# Total Protein (6.6-8.7) g/dL Albumin (3.5-5.2) g/dL Globulin (1.3-4.6) g/dL Urine Color (Yellow) Urine Appearance (CLEAR) Urine pH (5-7) Ur Specific Gravit y (1.005-1.030) Urine Protein (Negative) Urine Glucose (UA) (Normal) Urine Ketones (Negative) Urine Occult Blood (Negative) Urine Nitrate (Negative) Urine Bilirubin (NEGATIVE) Urine Urobilinogen (Negative) mg/dL Ur Leukocyte Carol ase (Negative) Urine RBC (0-2) /hpf Urine WBC (0-5) /hpf Ur Squamous Epith Cells (0-5) Urine Bacteria (NONE) Hepatitis A IgM Ab Non-reactive (Nonreactive) Hep Bs Antibody 3.5 (0-8.5) Hep B Core Total A b Reactive (Nonreactive) Hepatitis C Antibo dy Non-reactive (Nonreactive) Blood Type 08/17/19 08/17/19 08/17/19 Range/Units 15:37 15:54 16:36 WBC (4.0-10.0) 10^3/ uL RBC (4.1-5.3) 10^6/u L Hgb (11.7-16.6) g/dL Hct (42.0-52.0) % MCV (80-94) fL MCH (28.0-34.0) pg MCHC (30.0-36.0) g/dL RDW (12.1-15.1) % Plt Count (130-400) 10^3/c mm MPV (7.4-10.4) fL Neut % (Auto) % Lymph % (Auto) % [place] % (Auto) % Eos % (Auto) % Baso % (Auto) % Neut # (Auto) (1.8-7.7) 10^3/u L Lymph # (Auto) (0.8-4.8) 10^3/u L [place] # (Auto) (0.2-0.9) 10^3/u L Eos # (Auto) (0.0-0.8) 10^3/u L Baso # (Auto) (0.0-0.1) 10^3/u L Nucleated RBC % (a uto) % Total Counted (0-100) Segmented Neutroph ils % Band Neutrophils % Lymphocytes (Manua l) % Monocytes (Manual) % Absolute Monocytes (0.1-0.6) 10^3/c mm Nucleated RBCs # /100WBC Platelet Estimate (Normal) PT (10.5-13.3) SECO NDS INR (0.8-1.2) APTT (23.9-36.7) SECO NDS Specimen Type Sample Site ABG pH (7.35-7.45) ABG pCO2 (35-45) mmHg ABG pO2 (80.0-100.0) mmH g ABG HCO3 (22-26) mmol/L ABG Base Excess (-2.0-2.0) mmol/ L Rudy Test Hematocrit (42-52) % Hgb O2 Saturation (95-100) % Carboxyhemoglobin (0.4-20.1) %THgb Methemoglobin (0.4-1.5) % Total Hemoglobin (14-18) g/dL Floor Manager ID Sodium (136-145) mmol/L Potassium (3.5-5.1) mmol/L Chloride (98-107) mmol/L Carbon Dioxide (22-29) mmol/L Anion Gap (5-19) BUN (8-23) mg/dL Creatinine (0.7-1.2) mg/dL GFR Calculation (90-130) mL/min Glucose (74-106) mg/dL POC Glucose (70-110) mg/dL Lactate (0.5-2.2) mmol/L Calcium (8.8-10.2) mg/Dl Phosphorus (2.5-4.5) mg/dL Magnesium (1.7-2.3) mg/dL Total Bilirubin (0.15-1.2) mg/dL AST (0-40) U/L ALT (0-41) U/L Alkaline Phosphata se (40-130) IU/L Ammonia 108 H (16-60) umol/L Troponin I 6 Hour (0-15) ng/L Troponin I Hi Sens Del (0-12) ng/L Troponin T Baselin e (0-15) ng/mL Troponin T 120 Min [place] 10.56 (0-15) ng/mL Delta Troponin T -0.44 L (0-10) ABS# Total Protein (6.6-8.7) g/dL Albumin (3.5-5.2) g/dL Globulin (1.3-4.6) g/dL Urine Color (Yellow) Urine Appearance (CLEAR) Urine pH (5-7) Ur Specific Gravit y (1.005-1.030) Urine Protein (Negative) Urine Glucose (UA) (Normal) Urine Ketones (Negative) Urine Occult Blood (Negative) Urine Nitrate (Negative) Urine Bilirubin (NEGATIVE) Urine Urobilinogen (Negative) mg/dL Ur Leukocyte Carol ase (Negative) Urine RBC (0-2) /hpf Urine WBC (0-5) /hpf Ur Squamous Epith Cells (0-5) Urine Bacteria (NONE) Hepatitis A IgM Ab (Nonreactive) Hep Bs Antibody (0-8.5) Hep B Core Total A b (Nonreactive) Hepatitis C Antibo dy (Nonreactive) Blood Type O Negative 08/17/19 08/18/19 08/18/19 Range/Units 19:24 06:33 06:47 WBC 10.6 H (4.0-10.0) 10^3/ uL RBC 4.16 (4.1-5.3) 10^6/u L Hgb 13.2 (11.7-16.6) g/dL Hct 40.3 L (42.0-52.0) % MCV 96.9 H (80-94) fL MCH 31.7 (28.0-34.0) pg MCHC 32.8 (30.0-36.0) g/dL RDW 15.3 H (12.1-15.1) % Plt Count 246 (130-400) 10^3/c mm MPV 9.1 (7.4-10.4) fL Neut % (Auto) 54.2 % Lymph % (Auto) 9.6 % [place] % (Auto) 3.8 % Eos % (Auto) 0.6 % Baso % (Auto) 0.6 % Neut # (Auto) 5.8 (1.8-7.7) 10^3/u L Lymph # (Auto) 1.0 (0.8-4.8) 10^3/u L [place] # (Auto) 0.4 (0.2-0.9) 10^3/u L Eos # (Auto) 0.1 (0.0-0.8) 10^3/u L Baso # (Auto) 0.1 (0.0-0.1) 10^3/u L Nucleated RBC % (a uto) 0 % Total Counted (0-100) Segmented Neutroph ils % Band Neutrophils % Lymphocytes (Manua l) % Monocytes (Manual) % Absolute Monocytes (0.1-0.6) 10^3/c mm Nucleated RBCs # 0.0 /100WBC Platelet Estimate (Normal) PT (10.5-13.3) SECO NDS INR (0.8-1.2) APTT (23.9-36.7) SECO NDS Specimen Type Arterial Sample Site Radial, left ABG pH 7.43 (7.35-7.45) ABG pCO2 31.6 L (35-45) mmHg ABG pO2 75.5 L (80.0-100.0) mmH g ABG HCO3 20.9 L (22-26) mmol/L ABG Base Excess -2.5 L (-2.0-2.0) mmol/ L Rudy Test Pos Hematocrit 44.1 (42-52) % Hgb O2 Saturation 93.9 L (95-100) % Carboxyhemoglobin 0.6 (0.4-20.1) %THgb Methemoglobin 0.8 (0.4-1.5) % Total Hemoglobin 14.4 (14-18) g/dL Floor Manager ID [email or web address] Sodium (136-145) mmol/L Potassium (3.5-5.1) mmol/L Chloride (98-107) mmol/L Carbon Dioxide (22-29) mmol/L Anion Gap (5-19) BUN (8-23) mg/dL Creatinine (0.7-1.2) mg/dL GFR Calculation (90-130) mL/min Glucose (74-106) mg/dL POC Glucose (70-110) mg/dL Lactate (0.5-2.2) mmol/L Calcium (8.8-10.2) mg/Dl Phosphorus (2.5-4.5) mg/dL Magnesium (1.7-2.3) mg/dL Total Bilirubin (0.15-1.2) mg/dL AST (0-40) U/L ALT (0-41) U/L Alkaline Phosphata se (40-130) IU/L Ammonia (16-60) umol/L Troponin I 6 Hour 10.86 (0-15) ng/L Troponin I Hi Sens Del (0-12) ng/L Troponin T Baselin e (0-15) ng/mL Troponin T 120 Min [place] (0-15) ng/mL Delta Troponin T (0-10) ABS# Total Protein (6.6-8.7) g/dL Albumin (3.5-5.2) g/dL Globulin (1.3-4.6) g/dL Urine Color (Yellow) Urine Appearance (CLEAR) Urine pH (5-7) Ur Specific Gravit y (1.005-1.030) Urine Protein (Negative) Urine Glucose (UA) (Normal) Urine Ketones (Negative) Urine Occult Blood (Negative) Urine Nitrate (Negative) Urine Bilirubin (NEGATIVE) Urine Urobilinogen (Negative) mg/dL Ur Leukocyte Carol ase (Negative) Urine RBC (0-2) /hpf Urine WBC (0-5) /hpf Ur Squamous Epith Cells (0-5) Urine Bacteria (NONE) Hepatitis A IgM Ab (Nonreactive) Hep Bs Antibody (0-8.5) Hep B Core Total A b (Nonreactive) Hepatitis C Antibo dy (Nonreactive) Blood Type 08/18/19 08/18/19 08/18/19 Range/Units 06:47 06:47 06:47 WBC (4.0-10.0) 10^3/ uL RBC (4.1-5.3) 10^6/u L Hgb (11.7-16.6) g/dL Hct (42.0-52.0) % MCV (80-94) fL MCH (28.0-34.0) pg MCHC (30.0-36.0) g/dL RDW (12.1-15.1) % Plt Count (130-400) 10^3/c mm MPV (7.4-10.4) fL Neut % (Auto) % Lymph % (Auto) % [place] % (Auto) % Eos % (Auto) % Baso % (Auto) % Neut # (Auto) (1.8-7.7) 10^3/u L Lymph # (Auto) (0.8-4.8) 10^3/u L [place] # (Auto) (0.2-0.9) 10^3/u L Eos # (Auto) (0.0-0.8) 10^3/u L Baso # (Auto) (0.0-0.1) 10^3/u L Nucleated RBC % (a uto) % Total Counted (0-100) Segmented Neutroph ils % Band Neutrophils % Lymphocytes (Manua l) % Monocytes (Manual) % Absolute Monocytes (0.1-0.6) 10^3/c mm Nucleated RBCs # /100WBC Platelet Estimate (Normal) PT (10.5-13.3) SECO NDS INR (0.8-1.2) APTT (23.9-36.7) SECO NDS Specimen Type Sample Site ABG pH (7.35-7.45) ABG pCO2 (35-45) mmHg ABG pO2 (80.0-100.0) mmH g ABG HCO3 (22-26) mmol/L ABG Base Excess (-2.0-2.0) mmol/ L Rudy Test Hematocrit (42-52) % Hgb O2 Saturation (95-100) % Carboxyhemoglobin (0.4-20.1) %THgb Methemoglobin (0.4-1.5) % Total Hemoglobin (14-18) g/dL Floor Manager ID Sodium 137 (136-145) mmol/L Potassium 4.4 (3.5-5.1) mmol/L Chloride 105 (98-107) mmol/L Carbon Dioxide 19 L (22-29) mmol/L Anion Gap 17.4 (5-19) BUN 38 H (8-23) mg/dL Creatinine 1.8 H (0.7-1.2) mg/dL GFR Calculation 37.6 L (90-130) mL/min Glucose 66 L (74-106) mg/dL POC Glucose (70-110) mg/dL Lactate 3.2 H (0.5-2.2) mmol/L Calcium 9.4 (8.8-10.2) mg/Dl Phosphorus 3.3 (2.5-4.5) mg/dL Magnesium 2.1 (1.7-2.3) mg/dL Total Bilirubin 2.4 H (0.15-1.2) mg/dL AST 1015 H (0-40) U/L ALT 1632 H (0-41) U/L Alkaline Phosphata se 193 H (40-130) IU/L Ammonia 109 H (16-60) umol/L Troponin I 6 Hour (0-15) ng/L Troponin I Hi Sens Del (0-12) ng/L Troponin T Baselin e (0-15) ng/mL Troponin T 120 Min [place] (0-15) ng/mL Delta Troponin T (0-10) ABS# Total Protein 6.2 L (6.6-8.7) g/dL Albumin 3.0 L (3.5-5.2) g/dL Globulin 3.2 (1.3-4.6) g/dL Urine Color (Yellow) Urine Appearance (CLEAR) Urine pH (5-7) Ur Specific Gravit y (1.005-1.030) Urine Protein (Negative) Urine Glucose (UA) (Normal) Urine Ketones (Negative) Urine Occult Blood (Negative) Urine Nitrate (Negative) Urine Bilirubin (NEGATIVE) Urine Urobilinogen (Negative) mg/dL Ur Leukocyte Carol ase (Negative) Urine RBC (0-2) /hpf Urine WBC (0-5) /hpf Ur Squamous Epith Cells (0-5) Urine Bacteria (NONE) Hepatitis A IgM Ab (Nonreactive) Hep Bs Antibody (0-8.5) Hep B Core Total A b (Nonreactive) Hepatitis C Antibo dy (Nonreactive) Blood Type 08/18/19 08/18/19 08/18/19 Range/Units 06:47 08:00 20:22 WBC (4.0-10.0) 10^3/ uL RBC (4.1-5.3) 10^6/u L Hgb (11.7-16.6) g/dL Hct (42.0-52.0) % MCV (80-94) fL MCH (28.0-34.0) pg MCHC (30.0-36.0) g/dL RDW (12.1-15.1) % Plt Count (130-400) 10^3/c mm MPV (7.4-10.4) fL Neut % (Auto) % Lymph % (Auto) % [place] % (Auto) % Eos % (Auto) % Baso % (Auto) % Neut # (Auto) (1.8-7.7) 10^3/u L Lymph # (Auto) (0.8-4.8) 10^3/u L [place] # (Auto) (0.2-0.9) 10^3/u L Eos # (Auto) (0.0-0.8) 10^3/u L Baso # (Auto) (0.0-0.1) 10^3/u L Nucleated RBC % (a uto) % Total Counted (0-100) Segmented Neutroph ils % Band Neutrophils % Lymphocytes (Manua l) % Monocytes (Manual) % Absolute Monocytes (0.1-0.6) 10^3/c mm Nucleated RBCs # /100WBC Platelet Estimate (Normal) PT 28.00 H (10.5-13.3) SECO NDS INR 2.50 H (0.8-1.2) APTT 35.1 (23.9-36.7) SECO NDS Specimen Type Sample Site ABG pH (7.35-7.45) ABG pCO2 (35-45) mmHg ABG pO2 (80.0-100.0) mmH g ABG HCO3 (22-26) mmol/L ABG Base Excess (-2.0-2.0) mmol/ L Rudy Test Hematocrit (42-52) % Hgb O2 Saturation (95-100) % Carboxyhemoglobin (0.4-20.1) %THgb Methemoglobin (0.4-1.5) % Total Hemoglobin (14-18) g/dL Floor Manager ID Sodium (136-145) mmol/L Potassium (3.5-5.1) mmol/L Chloride (98-107) mmol/L Carbon Dioxide (22-29) mmol/L Anion Gap (5-19) BUN (8-23) mg/dL Creatinine (0.7-1.2) mg/dL GFR Calculation (90-130) mL/min Glucose (74-106) mg/dL POC Glucose 101 (70-110) mg/dL Lactate (0.5-2.2) mmol/L Calcium (8.8-10.2) mg/Dl Phosphorus (2.5-4.5) mg/dL Magnesium (1.7-2.3) mg/dL Total Bilirubin (0.15-1.2) mg/dL AST (0-40) U/L ALT (0-41) U/L Alkaline Phosphata se (40-130) IU/L Ammonia (16-60) umol/L Troponin I 6 Hour (0-15) ng/L Troponin I Hi Sens Del (0-12) ng/L Troponin T Baselin e (0-15) ng/mL Troponin T 120 Min [place] (0-15) ng/mL Delta Troponin T (0-10) ABS# Total Protein (6.6-8.7) g/dL Albumin (3.5-5.2) g/dL Globulin (1.3-4.6) g/dL Urine Color Yellow (Yellow) Urine Appearance Clear (CLEAR) Urine pH 5.0 (5-7) Ur Specific Gravit y 1.010 (1.005-1.030) Urine Protein Trace (Negative) Urine Glucose (UA) Norm (Normal) Urine Ketones Negative (Negative) Urine Occult Blood Neg (Negative) Urine Nitrate Negative (Negative) Urine Bilirubin 1+ H (NEGATIVE) Urine Urobilinogen Norm (Negative) mg/dL Ur Leukocyte Carol ase Negative (Negative) Urine RBC Rare (0-2) /hpf Urine WBC None (0-5) /hpf Ur Squamous Epith Cells None (0-5) Urine Bacteria 1+ H (NONE) Hepatitis A IgM Ab (Nonreactive) Hep Bs Antibody (0-8.5) Hep B Core Total A b (Nonreactive) Hepatitis C Antibo dy (Nonreactive) Blood Type 08/19/19 08/19/19 08/19/19 Range/Units 02:40 02:40 02:40 WBC 12.7 H (4.0-10.0) 10^3/ uL RBC 4.20 (4.1-5.3) 10^6/u L Hgb 13.5 (11.7-16.6) g/dL Hct 41.7 L (42.0-52.0) % MCV 99.3 H (80-94) fL MCH 32.1 (28.0-34.0) pg MCHC 32.4 (30.0-36.0) g/dL RDW 15.2 H (12.1-15.1) % Plt Count 213 (130-400) 10^3/c mm MPV 9.0 (7.4-10.4) fL Neut % (Auto) % Lymph % (Auto) % [place] % (Auto) % Eos % (Auto) % Baso % (Auto) % Neut # (Auto) (1.8-7.7) 10^3/u L Lymph # (Auto) (0.8-4.8) 10^3/u L [place] # (Auto) (0.2-0.9) 10^3/u L Eos # (Auto) (0.0-0.8) 10^3/u L Baso # (Auto) (0.0-0.1) 10^3/u L Nucleated RBC % (a uto) % Total Counted 100 (0-100) Segmented Neutroph ils 70 % Band Neutrophils 4.0 % Lymphocytes (Man[place] l) 24 % Monocytes (Manual) 2.0 % Absolute Monocytes 0.3 (0.1-0.6) 10^3/c mm Nucleated RBCs # /100WBC Platelet Estimate Decreased (Normal) PT 26.30 H (10.5-13.3) SECO NDS INR 2.32 H (0.8-1.2) APTT (23.9-36.7) SECO NDS Specimen Type Sample Site ABG pH (7.35-7.45) ABG pCO2 (35-45) mmHg ABG pO2 (80.0-100.0) mmH g ABG HCO3 (22-26) mmol/L ABG Base Excess (-2.0-2.0) mmol/ L Rudy Test Hematocrit (42-52) % Hgb O2 Saturation (95-100) % Carboxyhemoglobin (0.4-20.1) %THgb Methemoglobin (0.4-1.5) % Total Hemoglobin (14-18) g/dL Floor Manager ID Sodium 136 (136-145) mmol/L Potassium 3.9 (3.5-5.1) mmol/L Chloride 105 (98-107) mmol/L Carbon Dioxide 20 L (22-29) mmol/L Anion Gap 14.9 (5-19) BUN 49 H (8-23) mg/dL Creatinine 1.4 H (0.7-1.2) mg/dL GFR Calculation 50.2 L (90-130) mL/min Glucose 93 (74-106) mg/dL POC Glucose (70-110) mg/dL Lactate (0.5-2.2) mmol/L Calcium 9.4 (8.8-10.2) mg/Dl Phosphorus (2.5-4.5) mg/dL Magnesium (1.7-2.3) mg/dL Total Bilirubin 2.0 H (0.15-1.2) mg/dL AST 299 H (0-40) U/L ALT 1074 H (0-41) U/L Alkaline Phosphata se 270 H (40-130) IU/L Ammonia (16-60) umol/L Troponin I 6 Hour (0-15) ng/L Troponin I Hi Sens Del (0-12) ng/L Troponin T Baselin e (0-15) ng/mL Troponin T 120 Min [place] (0-15) ng/mL Delta Troponin T (0-10) ABS# Total Protein 6.6 (6.6-8.7) g/dL Albumin 2.7 L (3.5-5.2) g/dL Globulin 3.9 (1.3-4.6) g/dL Urine Color (Yellow) Urine Appearance (CLEAR) Urine pH (5-7) Ur Specific Gravit y (1.005-1.030) Urine Protein (Negative) Urine Glucose (UA) (Normal) Urine Ketones (Negative) Urine Occult Blood (Negative) Urine Nitrate (Negative) Urine Bilirubin (NEGATIVE) Urine Urobilinogen (Negative) mg/dL Ur Leukocyte Carol ase (Negative) Urine RBC (0-2) /hpf Urine WBC (0-5) /hpf Ur Squamous Epith Cells (0-5) Urine Bacteria (NONE) Hepatitis A IgM Ab (Nonreactive) Hep Bs Antibody (0-8.5) Hep B Core Total A b (Nonreactive) Hepatitis C Antibo dy (Nonreactive) Blood Type 08/19/19 08/19/19 08/19/19 Range/Units 02:40 10:18 12:21 WBC (4.0-10.0) 10^3/ uL RBC (4.1-5.3) 10^6/u L Hgb (11.7-16.6) g/dL Hct (42.0-52.0) % MCV (80-94) fL MCH (28.0-34.0) pg MCHC (30.0-36.0) g/dL RDW (12.1-15.1) % Plt Count (130-400) 10^3/c mm MPV (7.4-10.4) fL Neut % (Auto) % Lymph % (Auto) % [place] % (Auto) % Eos % (Auto) % Baso % (Auto) % Neut # (Auto) (1.8-7.7) 10^3/u L Lymph # (Auto) (0.8-4.8) 10^3/u L [place] # (Auto) (0.2-0.9) 10^3/u L Eos # (Auto) (0.0-0.8) 10^3/u L Baso # (Auto) (0.0-0.1) 10^3/u L Nucleated RBC % (a uto) % Total Counted (0-100) Segmented Neutroph ils % Band Neutrophils % Lymphocytes (Manua l) % Monocytes (Manual) % Absolute Monocytes (0.1-0.6) 10^3/c mm Nucleated RBCs # /100WBC Platelet Estimate (Normal) PT (10.5-13.3) SECO NDS INR (0.8-1.2) APTT (23.9-36.7) SECO NDS Specimen Type Sample Site ABG pH (7.35-7.45) ABG pCO2 (35-45) mmHg ABG pO2 (80.0-100.0) mmH g ABG HCO3 (22-26) mmol/L ABG Base Excess (-2.0-2.0) mmol/ L Rudy Test Hematocrit (42-52) % Hgb O2 Saturation (95-100) % Carboxyhemoglobin (0.4-20.1) %THgb Methemoglobin (0.4-1.5) % Total Hemoglobin (14-18) g/dL Floor Manager ID Sodium (136-145) mmol/L Potassium (3.5-5.1) mmol/L Chloride (98-107) mmol/L Carbon Dioxide (22-29) mmol/L Anion Gap (5-19) BUN (8-23) mg/dL Creatinine (0.7-1.2) mg/dL GFR Calculation (90-130) mL/min Glucose (74-106) mg/dL POC Glucose (70-110) mg/dL Lactate (0.5-2.2) mmol/L Calcium (8.8-10.2) mg/Dl Phosphorus (2.5-4.5) mg/dL Magnesium (1.7-2.3) mg/dL Total Bilirubin (0.15-1.2) mg/dL AST (0-40) U/L ALT (0-41) U/L Alkaline Phosphata se (40-130) IU/L Ammonia 96 H (16-60) umol/L Troponin I 6 Hour (0-15) ng/L Troponin I Hi Sens Del (0-12) ng/L Troponin T Baselin e 14 (0-15) ng/mL Troponin T 120 Min [place] 14.67 (0-15) ng/mL Delta Troponin T 0.67 (0-10) ABS# Total Protein (6.6-8.7) g/dL Albumin (3.5-5.2) g/dL Globulin (1.3-4.6) g/dL Urine Color (Yellow) Urine Appearance (CLEAR) Urine pH (5-7) Ur Specific Gravit y (1.005-1.030) Urine Protein (Negative) Urine Glucose (UA) (Normal) Urine Ketones (Negative) Urine Occult Blood (Negative) Urine Nitrate (Negative) Urine Bilirubin (NEGATIVE) Urine Urobilinogen (Negative) mg/dL Ur Leukocyte Carol ase (Negative) Urine RBC (0-2) /hpf Urine WBC (0-5) /hpf Ur Squamous Epith Cells (0-5) Urine Bacteria (NONE) Hepatitis A IgM Ab (Nonreactive) Hep Bs Antibody (0-8.5) Hep B Core Total A b (Nonreactive) Hepatitis C Antibo dy (Nonreactive) Blood Type 08/19/19 Range/Units 16:15 WBC (4.0-10.0) 10^3/ uL RBC (4.1-5.3) 10^6/u L Hgb (11.7-16.6) g/dL Hct (42.0-52.0) % MCV (80-94) fL MCH (28.0-34.0) pg MCHC (30.0-36.0) g/dL RDW (12.1-15.1) % Plt Count (130-400) 10^3/c mm MPV (7.4-10.4) fL Neut % (Auto) % Lymph % (Auto) % [place] % (Auto) % Eos % (Auto) % Baso % (Auto) % Neut # (Auto) (1.8-7.7) 10^3/u L Lymph # (Auto) (0.8-4.8) 10^3/u L [place] # (Auto) (0.2-0.9) 10^3/u L Eos # (Auto) (0.0-0.8) 10^3/u L Baso # (Auto) (0.0-0.1) 10^3/u L Nucleated RBC % (a uto) % Total Counted (0-100) Segmented Neutroph ils % Band Neutrophils % Lymphocytes (Manua l) % Monocytes (Manual) % Absolute Monocytes (0.1-0.6) 10^3/c mm Nucleated RBCs # /100WBC Platelet Estimate (Normal) PT (10.5-13.3) SECO NDS INR (0.8-1.2) APTT (23.9-36.7) SECO NDS Specimen Type Sample Site ABG pH (7.35-7.45) ABG pCO2 (35-45) mmHg ABG pO2 (80.0-100.0) mmH g ABG HCO3 (22-26) mmol/L ABG Base Excess (-2.0-2.0) mmol/ L Rudy Test Hematocrit (42-52) % Hgb O2 Saturation (95-100) % Carboxyhemoglobin (0.4-20.1) %THgb Methemoglobin (0.4-1.5) % Total Hemoglobin (14-18) g/dL Floor Manager ID Sodium (136-145) mmol/L Potassium (3.5-5.1) mmol/L Chloride (98-107) mmol/L Carbon Dioxide (22-29) mmol/L Anion Gap (5-19) BUN (8-23) mg/dL Creatinine (0.7-1.2) mg/dL GFR Calculation (90-130) mL/min Glucose (74-106) mg/dL POC Glucose (70-110) mg/dL Lactate (0.5-2.2) mmol/L Calcium (8.8-10.2) mg/Dl Phosphorus (2.5-4.5) mg/dL Magnesium (1.7-2.3) mg/dL Total Bilirubin (0.15-1.2) mg/dL AST (0-40) U/L ALT (0-41) U/L Alkaline Phosphata se (40-130) IU/L Ammonia (16-60) umol/L Troponin I 6 Hour 12.79 (0-15) ng/L Troponin I Hi Sens Del -1.21 L (0-12) ng/L Troponin T Baselin e (0-15) ng/mL Troponin T 120 Min [place] (0-15) ng/mL Delta Troponin T (0-10) ABS# Total Protein (6.6-8.7) g/dL Albumin (3.5-5.2) g/dL Globulin (1.3-4.6) g/dL Urine Color (Yellow) Urine Appearance (CLEAR) Urine pH (5-7) Ur Specific Gravit y (1.005-1.030) Urine Protein (Negative) Urine Glucose (UA) (Normal) Urine Ketones (Negative) Urine Occult Blood (Negative) Urine Nitrate (Negative) Urine Bilirubin (NEGATIVE) Urine Urobilinogen (Negative) mg/dL Ur Leukocyte Carol ase (Negative) Urine RBC (0-2) /hpf Urine WBC (0-5) /hpf Ur Squamous Epith Cells (0-5) Urine Bacteria (NONE) Hepatitis A IgM Ab (Nonreactive) Hep Bs Antibody (0-8.5) Hep B Core Total A b (Nonreactive) Hepatitis C Antibo dy (Nonreactive) Blood Type Discharge Plan Discharge Patient Disposition: Xfer Other Clinical Impression: Acute hepatic failure, Hepatic encephalopathy, Acute renal failure, Acute hyperkalemia, Hematoma of neck Condition: Stable Discharge Orders: Transfer Out of Facility (Order); Ordered 08/20/19 Ordered By: Andrea Beltran Discharge Date/Time: 08/20/19 08:11 Sign Out Sign Out Data: Patient Sign Out occurred on 08/19/19 at 06:01. Patient's care was discussed, and care was transferred from Celeste Valdez MD to Andrea Beltran DO. Sign Out Comment: Patient still awaiting transfer to [facility] has been accepted. We are waiting on a room and are continuing to monitor him closely. Patient care turned over to Dr. Beltran at shift change Last updated by Celeste Valdez MD at 08/19/19 05:33 Coding Level of Care Code ED Medical Van Driver for Chg Fwd The documentation recorded by the brantibJon tomas Kialy, accurately reflects the service I personally performed and the decisions made by , Andrea Beltran DO Aug 17, 2019 13:04
--- NOTE | 2019-08-18 15:38 | PC.NURSE ---
patient changed positions on their own, sheets and chucks changed. patient stated their position is comfortable.
--- NOTE | 2019-08-18 17:38 | PM.CONSULT ---
Providers/Reason For Consult Consulting Physican/Specialty*: Dr. Beltran, ER physician Reason for Consult*: Cirrhosis, liver failure History of Present Illness History of Present Illness Canelo Lara is a 69 year old male that presented to the emergency department after a fall. Noted to have significant right-sided neck swelling. Extremely difficult to obtain information from patient due to hepatic encephalopathy. Sister is present at bedside who reported that patient has been an alcoholic for many years, continues to drink daily. Reported that he had had a fall 1 week ago, seen at a local primary care provider's office and scheduled for an MRI of his neck, had went to have this performed then she reported that he may have had another fall resulting in significantly increased swelling in the right side of his neck. Patient was seen and evaluated in the emergency department noted to have large hematoma in the right side of his neck and due to his liver failure and need for ENT surgery, which is not available at our facility at this time transfer to an outside facility for higher level of care. Awaiting bed placement at this time. Consultation requested due to hyperammonemia Review of Systems General: Reports: other (Difficult to obtain full review of systems due to encephalopathy) Const: Denies: chills Eyes: Denies: change in vision or blurry vision ENMT: Denies: nasal congestion Card: Denies: chest pain or palpitations Resp: Denies: shortness of breath, productive cough or non-productive cough GI: Denies: nausea or vomiting : Denies: flank pain or difficulty urinating Musc: Reports: neck pain; Denies: back pain, extremity pain, extremity swelling, joint pain or joint swelling Skin/Breast: Reports: other (Swelling in the right side of the neck) Neuro: Denies: headache Endo: Denies: excessive urination, excessive thirst, tired all the time or cold intolerance Angel/Lymph: Denies: easy bruising, easy bleeding, petechiae, enlarged lymph nodes or tender lymph nodes Meds/Allergies Home Medications and Allergies Home Medications Medication Instructions Recorded Confirmed Type lisinopril 10 mg PO DAILY 08/17/19 08/17/19 History meclizine 25 mg PO Q6H PRN 08/17/19 08/17/19 History pantoprazole 40 mg PO DAILY 08/17/19 08/17/19 History Allergies Allergy/AdvReac Type Severity Reaction Status Date / Time No Known Allergies Allergy Verified 08/17/19 13:30 Current Medications Current Medications Generic Name Dose Route Start Last Admin Trade Name Freq PRN Reason Stop Dose Admin Sodium Chloride 1,000 mls @ 125 mls/hr 08/18/19 06:30 08/18/19 06:27 Sodium Chloride 0.9% IV 125 mls/hr .Q8H CHRISTOPHER Administration Dextrose/Sodium Chloride 1,000 mls @ 150 mls/hr 08/18/19 07:30 08/18/19 07:38 Dextrose 5%-Sod Chloride 0.45% IV 150 mls/hr .Q6H40M CHRISTOPHER Administration PFSH Acute PFSH: Statuses (acute, chronic, etc) shown below reflect problem list status as previously entered and may not be historically accurate Social History Smoking and tobacco status: never smoked Vitals/I&O/Wt Last Vital Signs Temp 98.0 F 08/18/19 10:03 Pulse 109 H 08/18/19 09:17 Resp 23 H 08/18/19 09:17 BP 104/77 08/18/19 09:17 Pulse Ox 96 08/18/19 08:38 08/18/19 08/18/19 08/18/19 06:59 14:59 22:59 Intake Total 1000 / 1675 Balance 1000 / 1675 Weight last 48 hrs Weight 79.379 kg Physical Exam Const: OTHER: Oriented to person HENMT: OTHER: Large area of swelling in the right side of the neck Eye: OTHER: Scleral icterus Neck/C-Spine: COMMON NORMALS: supple GENERAL: Yes normal visual inspection Resp: COMMON NORMALS: normal respiratory effort and clear to auscultation bilaterally AUSCULTATION: clear to auscultation bilaterally, no rhonchi and no wheezes Cardio: COMMON NORMALS: regular rhythm RATE: tachycardic RHYTHM: regular rhythm GI: INSPECTION: Yes abdominal distension Extremity: COMMON NORMALS: no clubbing, cyanosis or edema and no calf tenderness Neuro: OTHER: Confusion, following commands appropriately Psych: COMMON NORMALS: cooperative Data Micro: Micro: Microbiology 08/18/19 06:41 Blood Culture - Pr eliminary Blood SPECIMEN [facility] 08/18/19 06:47 Blood Culture - Pr eliminary Blood SPECIMEN [facility] A&P Additional A&P Information Additional A&P Information: Hepatic encephalopathy: Started on lactulose, titrate to 2-3 soft bowel movements per day Cirrhosis with liver failure, given IV fluids with some improvement in LFTs, meld score today of 26, 19.6% mortality. Sister now at bedside reports daily alcohol use, since the age of 14. Started on nadolol due to concern for portal hypertension and cirrhosis also started on Aldactone due to hypertension Alcoholism: CIWA protocol with Ativan Large hematoma on the right side of the neck: Continue close monitoring and monitoring of airway. Atropine drops as needed for congestion, plan for transfer to outside facility for ENT evaluation as well as gastroenterology and hepatology GI specialist that are not available at our facility. ED day number 2 and 3 patient labs showed improvement from admission and continued to have R sided neck swelling. INR improved slightly. Continued encephalopathy and recommended to start Rifaxamin and continue lactulose to ensure 2-3 BM per day. Plan to transfer patient to higher level of care for ENT evaluation, no available at our facility at this time and hepatology consultation due to liver failure due to cirrhosis and large hematoma on the R side of the neck with coagulopathy Consult Attestations Medical Necessity Statement: Transfer to higher level of care as noted above due to liver failure and large hematoma to the right side of the neck with coagulopathy Coding Level of Care Code Acute Aboriginal Education Worker Coordinator for Nata Ugarte
[2019-08-18] MEDS: lactulose oral liq 20 gm/30 mL UDC PO (20:12)
--- NOTE | 2019-08-18 20:27 | PC.NURSE ---
Patient's blood glucose was 101, nurse was informed
[2019-08-18 20:29] LABS: Glucose Point of Care 101 mg/dL (70-110)
--- NOTE | 2019-08-18 22:00 | PC.NURSE ---
Rounded on patient. Patient resting in bed. Patients bed wet at this time from urine. Patient cleaned up and new sheets put on bed. Patient has no other needs will continue to monitor patient.
[2019-08-19] VITALS (111 sets, daily range): BP systolic 123–188; BP diastolic 78–133; PULSE 81–122; RESP 11–30; TEMP 36.4–37; O2SAT 88–98
--- NOTE | 2019-08-19 00:24 | PC.NURSE ---
Patient had urinated and had a small liquid BM. Patient changed and cleaned up. WIll continue to monitor patient.
--- NOTE | 2019-08-19 01:33 | PC.NURSE ---
Rounded on patient. Patient resting in bed. No distress noted. Patient had urinated in his depends. Patient cleaned up and changed. Patient had removed his own IV. New IV started. Patient now resting in bed. No needs at this time. WIll continue to monitor patient.
--- NOTE | 2019-08-19 02:20 | PC.NURSE ---
This RN noticed patient had removed himself from the foreclosure field inspector. Went to patients room to check on patient. Patient had both legs in one side of the attends. Patient had stool all over his legs. Patient also had removed his IV that was recently started. Patient cleaned and changed. Tech placed in patients room to sit with patient.
[2019-08-19 02:53] LABS: Hematocrit 41.7 % (42.0-52.0); Hemoglobin 13.5 g/dL (11.7-16.6); Mean Corpuscular HGB Conc 32.4 g/dL (30.0-36.0); Mean Corpuscular Hemoglobin 32.1 pg (28.0-34.0); Mean Corpuscular Volume 99.3 fL (80-94); Platelet Count 213 10^3/cmm (130-400); Red Cell Distribution Width 15.2 % (12.1-15.1); White Blood Count 12.7 10^3/uL (4.0-10.0)
[2019-08-19] MEDS: sodium chloride 0.9% 1,000 ML 75 ML IV (02:55)
[2019-08-19 03:01] LABS: INR 2.32 (0.8-1.2)
[2019-08-19 03:10] LABS: Albumin Level 2.7 g/dL (3.5-5.2); Alkaline Phosphatase 270 IU/L (40-130); Ammonia 96 umol/L (16-60); Anion Gap 14.9 (5-19); Aspartate Amino Transferase 299 U/L (0-40); Blood Urea Nitrogen 49 mg/dL (8-23); Calcium 9.4 mg/Dl (8.8-10.2); Carbon Dioxide 20 mmol/L (22-29); Chloride 105 mmol/L (98-107); Globulin 3.9 g/dL (1.3-4.6); Glomerular Filtration Rate 50.2 mL/min (90-130); Glucose 93 mg/dL (74-106); Potassium 3.9 mmol/L (3.5-5.1); Sodium 136 mmol/L (136-145); Total Protein 6.6 g/dL (6.6-8.7)
[2019-08-19 03:19] LABS: Absolute Segmented Neutrophil 8.8 10/cmm (1.6-7.1); Band Neutrophils Absolute 0.5 10^3/cmm (0.0-1.2); Lymphocytes 24 %; Monocytes Absolute 0.3 10^3/cmm (0.1-0.6); Platelet Estimate Decreased (Normal); Segmented Neutrophils 70 %; Total Cells Counted 100 (0-100)
[2019-08-19 03:22] LABS: Alanine Aminotransferase 1074 U/L (0-41)
--- NOTE | 2019-08-19 03:34 | PC.NURSE ---
retook blood pressure to confirm accuracy.
--- NOTE | 2019-08-19 04:39 | PC.NURSE ---
Patient soiled his brief, had diarrhea and urinated. Changed patient with the assistance of the nurse, checked his temperature via under arm and placed a stick on pulse ox due to patient constantly removing original pulse ox.
--- NOTE | 2019-08-19 04:56 | PC.NURSE ---
Patient's nurse obtained manual blood pressure
--- NOTE | 2019-08-19 05:07 | PC.NURSE ---
retook patient's blood pressure to confirm, patient rolled from his back to his right side when i retook his blood pressure, notified nurse.
--- NOTE | 2019-08-19 05:34 | PC.NURSE ---
Patient was moving around in bed when blood pressure was taken.
--- NOTE | 2019-08-19 05:58 | PC.NURSE ---
Tried to check patient to see if he had a bowel movement and needed changing, did not se any stool, patient too confused to follow commands.
--- NOTE | 2019-08-19 06:20 | PC.NURSE ---
Rounded on patient. Patient resting in bed. Patient had a bowel movement. Patient cleaned and new attends put on patient. Patient resting in bed will continue to monitor patient.
--- NOTE | 2019-08-19 06:22 | PC.NURSE ---
while fixing the patient's blanet, I noticed that it smelled like he had a bowel movement. I called the nurse and promptly got him cleaned and changed again, we boosted him back up in the bed so that he may rest more comfortably.
--- NOTE | 2019-08-19 07:09 | PC.NURSE ---
pt sister and 1:1 sitter at bedside.
[2019-08-19] MEDS: morphine 4 mg/mL SDV 1 mL 2 MG IVP (08:32)
[2019-08-19] MEDS: hyDRALAzine 20 mg/mL INJ 1 mL 10 MG IVP (08:33)
--- NOTE | 2019-08-19 08:41 | PC.NURSE ---
linen change and hygiene clean performed, pt placed in gown and given warm blanket.
--- NOTE | 2019-08-19 10:13 | ECG_ITS ---
Measurements Intervals [place] Rate: 119 P: 66 PA: 170 QRS: -81 QRSD: 146 T: 32 QT: 310 QTc: 437 SINUS TACHYCARDIA WITH OCCASIONAL VENTRICULAR PREMATURE COMPLEXES RIGHT BUNDLE BRANCH BLOCK [120+ ms QRS DURATION, UPRIGHT V1, 40+ ms S IN I I/aVL/V4/V5/V6] LEFT ANTERIOR FASCICULAR BLOCK [QRS AXIS <= -45, QR IN I, RS IN II] INTERPRETATION BASED ON A DEFAULT AGE OF 40 YEARS Compared to ECG 08/17/2019 16:26:17 Ventricular premature complex(es) now present Left anterior fascicular block now present Right-axis deviation no longer present Electronically Signed On 08-19-2019 16:46:50 HAND II TUBE BENDER by Will Lobato M.D. [id number]
--- NOTE | 2019-08-19 10:13 | XRR_ITS ---
PROCEDURE INFORMATION: Exam: XR Chest, 1 View Exam date and time: 08/19/2019 11:02 AM Age: 69 years old Clinical indication: Dyspnea; Prior surgery; Surgery date: 6+ months; Surgery type: Stents; Patient HX: Limited HX due to PT condition TECHNIQUE: Imaging protocol: XR of the chest Views: 1 view. COMPARISON: CR XR chest 1V portable [id number] 08/18/2019 6:21 AM FINDINGS: Lungs: Low lung volumes. No consolidation. Pleural space: Unremarkable. No evidence of pleural effusion or pneumothorax. Heart/Mediastinum: Unremarkable. No cardiomegaly. Vasculature: Unfolding of the aorta. Bones/joints: No acute bony abnormality. XR/XR chest 1V portable [id number] IMPRESSION: No acute findings.
[2019-08-19] MEDS: folic acid 1 mg Tablet PO (10:39)
[2019-08-19] MEDS: spironolactone 25 mg Tablet PO (10:39)
[2019-08-19 10:40] LABS: Troponin(5th) Baseline 14 ng/mL (0-15)
[2019-08-19] MEDS: pantoprazole DR 40 mg Tablet PO (10:40)
[2019-08-19] MEDS: multivitamin therapeutic Tablet 1 TAB PO (10:40)
[2019-08-19] MEDS: thiamine 100 mg Tablet PO (10:40)
[2019-08-19] MEDS: sodium chloride 0.9% 1,000 ML 999 ML IV (10:45)
--- NOTE | 2019-08-19 12:13 | ECG_ITS ---
Measurements Intervals [place] Rate: 88 P: 57 NM: 183 QRS: -35 QRSD: 163 T: 32 QT: 417 QTc: 506 SINUS RHYTHM LEFT AXIS DEVIATION [QRS AXIS < -30] RIGHT BUNDLE BRANCH BLOCK [120+ ms QRS DURATION, UPRIGHT V1, 40+ ms S IN I/aVL/V4/V5/V6] INTERPRETATION BASED ON A DEFAULT AGE OF 40 YEARS Compared to ECG 08/17/2019 16:26:17 Left-axis deviation now present Sinus tachycardia no longer present Right-axis deviation no longer present Electronically Signed On 08-19-2019 16:51:38 THERAPIST SPEECH by Will Lobato M.D. [id number]
[2019-08-19 13:04] LABS: Troponin 5 2HR 14.67 ng/mL (0-15); Troponin 5 2HR Delta 0.67 ABS# (0-10)
[2019-08-19] MEDS: LORazepam 2 mg/mL INJ 1 mL IM (15:43)
--- NOTE | 2019-08-19 16:13 | ECG_ITS ---
Measurements Intervals [place] Rate: 86 P: 60 VT: 189 QRS: -55 QRSD: 158 T: 30 QT: 407 QTc: 489 SINUS RHYTHM RIGHT BUNDLE BRANCH BLOCK [120+ ms QRS DURATION, UPRIGHT V1, 40+ ms S IN I I/aVL/V4/V5/V6] LEFT ANTERIOR FASCICULAR BLOCK [QRS AXIS <= -45, QR IN I, RS IN II] INTERPRETATION BASED ON A DEFAULT AGE OF 40 YEARS Compared to ECG 08/17/2019 16:26:17 Left anterior fascicular block now present Sinus tachycardia no longer present Right-axis deviation no longer present Electronically Signed On 08-19-2019 16:52:13 BATH MIXER by Will Lobato M.D. [id number]
[2019-08-19 16:36] LABS: Troponin 5 6HR 12.79 ng/L (0-15)
--- NOTE | 2019-08-19 16:36 | PC.NURSE ---
full hygiene clean using bath wipes, pt tolerated well. pt placed on right side. pt states no further needs at this time, 1:1 sitter at bedside.
[2019-08-19 16:37] LABS: Troponin 5 6HR Delta -1.21 ng/L (0-12)
--- NOTE | 2019-08-19 17:23 | USR_ITS ---
PROCEDURE INFORMATION: Exam: US Abdomen Complete Exam date and time: 08/19/2019 6:14 PM Age: 69 years old Clinical indication: Other: Blood work results; Patient HX: Bun 49 and creat 1.4. PT 26.3 and inr 2.32; Additional info: Liver failure TECHNIQUE: Imaging protocol: Real-time ultrasound of the abdomen with image documentation. COMPARISON: No relevant prior studies available. FINDINGS: Liver: Liver is enlarged measuring 20.5 centimetres. Gallbladder: Normal. No gallstones. There is no gallbladder wall thickening. Common bile duct: Normal. No stones. No dilation. Pancreas: Visualized pancreas is unremarkable. Right kidney: Normal. No mass. No hydronephrosis. Left kidney: Normal. No mass. No hydronephrosis. Spleen: Spleen mildly enlarged measuring 13.1 centimetres. Aorta: Normal. No aneurysm. Inferior vena cava: Normal. US/US abdomen complete* [id number] IMPRESSION: Hepatomegaly and splenomegaly.
[2019-08-19] MEDS: piperacillin-tazobactam 3.375 GM in sodium chloride 0.9% (plus) 50 ML IV (18:51)
[2019-08-19] MEDS: sodium chloride 0.9% 1,000 ML 125 ML IV (18:51)
[2019-08-19] MEDS: lactulose oral liq 20 gm/30 mL UDC PO (18:52)
[2019-08-20] VITALS (7 sets, daily range): BP systolic 150–195; BP diastolic 106–129; PULSE 94–102; RESP 16–31; O2SAT 95–97
[2019-08-20] MEDS: sodium chloride 0.9% 1,000 ML 125 ML IV ×2 (00:03→03:09)
[2019-08-20] MEDS: LORazepam 2 mg/mL INJ 1 mL 1 MG IVP (00:04)
[2019-08-20] MEDS: enalaprilat 1.25 mg/mL Inj 2.5 MG IVP (01:11)
[2019-08-20] MEDS: labetalol 5 mg/mL SDV 20mL 20 MG IVP ×4 (01:12→07:30)
[2019-08-20] MEDS: nitroglycerin 1 gm/inch oint Pkt 2 INCH TOPICAL (02:13)
[2019-08-20] MEDS: LORazepam 2 mg/mL INJ 1 mL IVP (02:13)
[2019-08-21 11:28] LABS: Hepatitis B Surface Antigen. Non-Reactive (Nonreactive)
== END 2019-08-20 08:11 | disposition other institution (70) ==
PROVIDERS: Emergency Medicine; Family Medicine; Emergency Provider Family Medicine
DX: K72.00 Acute and subacute hepatic failure without coma (principal); N17.9 Acute kidney failure, unspecified; E87.5 Hyperkalemia; S10.93XA Contusion of unspecified part of neck, initial encounter; W19.XXXA Unspecified fall, initial encounter
CPT/HCPCS: 36415; 36416; 36430; 36600; 70496; 70498; 71045; 76700; 80053; 81003; 82140; 82805; 82962; 83605; 83735; 84100; 84484; 85007; 85025; 85027; 85610; 85730; 86705; 86706; 86709; 86803; 86900; 87040; 87340; 93005; 94640; 96360; 96361; 96365; 96372; 96374; 96375; 99285; J0360; J0610; J0696; J1630; J2060; J2270; J2543; J3490; J7030; J7611; J7799; P9017; Q9967

== ENCOUNTER 2019-09-27 14:17 | Outpatient (RCR) | payer MEDICARE, SELFPAY | END 2019-10-07 23:59 | disposition home or self-care (01) | LOC: WOUND 14:17 | PROVIDERS: Visit Provider Nurse Practitioner Family | DX: L08.9 Local infection of the skin and subcutaneous tissue, unspecified (principal); L98.492 Non-pressure chronic ulcer of skin of other sites with fat layer exposed | CPT/HCPCS: 11042; 87070; 87077; 87176; 87186; 87205 ==

== ENCOUNTER 2019-10-18 17:21 | Inpatient (IN) | payer MEDICARE, SELFPAY ==
[2019-10-18 17:25] VITALS: BP 153/107; PULSE 135; RESP 24; TEMP 36.5; O2SAT 96; BMI 24.3
--- NOTE | 2019-10-18 17:32 | ED_ITS ---
Entered by Saray Sommer, acting as scribe for Celeste Valdez MD HPI - Fall General: Chief Complaint: Fall Stated Complaint: FALL / RIGHT SIDE RIB PAIN Time Seen by Provider: 10/18/19 17:32 PFSH ED PFSH: Social History Smoking and tobacco status: former smoker Course Vital Signs: Vital signs: Vital Signs Temperature 97.7 F 10/18/19 17:25 Pulse Rate 135 H 10/18/19 17:25 Respiratory Rate 24 H 10/18/19 17:25 Blood Pressure 153/107 10/18/19 17:25 Pulse Oximetry 96 10/18/19 17:25 Discharge Plan Discharge Prescriptions: No Action meclizine 25 mg Tablet 25 mg PO Q6H PRN (Reason: Dizziness) RF: 0 pantoprazole 40 mg Tablet,Delayed Release (Dr/Ec) 40 mg PO DAILY RF: 0 lisinopril 10 mg Tablet 10 mg PO DAILY RF: 0 Coding Level of Care Code ED Floor Layer Tile for Nata Ugarte
[2019-10-18 17:33] VITALS: O2SAT 96
--- NOTE | 2019-10-18 17:41 | ECG_ITS ---
Measurements Intervals [place] Rate: 129 P: 1 TN: 141 QRS: 267 QRSD: 129 T: 16 QT: 338 QTc: 496 SINUS TACHYCARDIA RIGHT AXIS DEVIATION [QRS AXIS > 100] RIGHT BUNDLE BRANCH BLOCK [120+ ms QRS DURATION, UPRIGHT V1, 40+ ms S IN I/aVL/V4/V5/V6] Compared to ECG 08/19/2019 16:14:59 Right-axis deviation now present Sinus rhythm no longer present Left anterior fascicular block no longer present Electronically Signed On 10-18-2019 19:35:39 CDT by Tor Paula M.D. [id number]
--- NOTE | 2019-10-18 17:42 | XR_ITS ---
WS: [id number] Portable AP upright chest, 10/18/2019 Clinical Data: fall, tachy,, inc RR Comparison: Portable chest, 08/19/2019. Findings: No nodules, masses or effusions are seen. The heart is normal. The pulmonary vascularity is not increased. No pneumonia or pneumothorax is seen. The aortic arch and descending aorta are tortuo us. XR/XR chest 1V portable [id number] Impression: Atherosclerosis.
--- NOTE | 2019-10-18 17:57 | ED_ITS ---
Entered by Saray Sommer, acting as scribe for HPI - Fall General: Chief Complaint: Fall Stated Complaint: FALL / RIGHT SIDE RIB PAIN Time Seen by Provider: 10/18/19 17:32 Source: patient, family and RN notes reviewed Mode of arrival: EMS Limitations: altered mental status History of Present Illness: HPI Narrative: 69 yo male presents to ED with complaints of R rib pain. He said he fell outside walking around [facility] when he tripped and fell 1 month ago. He was sent to and treated at [facility]. The patient has old abrasions to his bilateral knees. The patient doesn't remember falling today although he has fresh abrasions to his face (abrasion to forehead and conjunctival hemorrhage to R eye) and he has erythema to R lower chest no crepitus. The family states patient was found between his bed and a (wall) heater, at which point the patient states he crawled around on old plaster floors to try to get to bed . He said his (R) ribs hurt and have been for a couple of weeks . He said he was fishing about a week ago and a fish hook caught his stomach (he has erythema and tenderness on his abdomen and it is tender to touch) The patient's neck is sore to touch and movement (no step-offs of exam to C-spine). C-color was placed. When the patient was asked if he drank alcohol, he said not really and the family stated the patient does not drink a lot but will drink some. The patient has altered mental status. MD complaint: fall Onset (ago): hour(s) (today) Fall from: standing Fall witnessed: no Place fall occurred: home Loss of consciousness: Unsure Prolonged down time: unclear Symptoms prior to fall: other (unknown) Context: tripped/slipped Location of injury: face, neck and abdomen Location of injury - extremities: Bilateral: knee Severity: severe Quality: aching Associated symptoms-after fall: Reports confusion and neck pain; Denies abdominal pain or chest pain Review of Systems General: Reports: 10 or more systems reviewed and unremarkable except in HPI and below Const: Denies: fever or chills Eyes: Denies: change in vision ENMT: Denies: throat pain Card: Denies: chest pain Resp: Denies: shortness of breath GI: Denies: abdominal pain, nausea, vomiting or change in bowel habits Musc: Reports: neck pain Skin/Breast: Denies: rash Neuro: Reports: confusion Psych: Denies: hopelessness or suicidal ideation Endo: Denies: excessive urination Angel/Lymph: Denies: easy bruising or easy bleeding All/Imm: Denies: hives [facility] ED PFSH: Medical History (Updated 10/18/19 @ 20:47 by Celeste Valdez MD) Alcoholism Hematoma Hepatic encephalopathy Liver cirrhosis Recurrent falls Social History Smoking and tobacco status: former smoker Physical Exam Const: COMMON NORMALS: alert EXAM LIMITATIONS: altered mental status GENERAL APPEARANCE: cooperative, anxious, disheveled, ill appearing and frail appearing; not well kempt HENMT: COMMON NORMALS: external nose normal FACE & SINUS: facial abrasion (abrasion to forehead) NOSE: external nose normal MOUTH: no trismus Eye: COMMON NORMALS: EOMs intact bilaterally CONJUNCTIVA: Yes conjunctiva abnormal (conjunctival hemorrhage to R eye) Neck/C-Spine: COMMON NORMALS: no lymphadenopathy CERVICAL SPINE: Yes cervical spine tenderness (no step-offs of exam to C-spine) Chest: CHEST: Yes abnormal inspection of the chest (erythema to R lower chest no crepitus) Resp: COMMON NORMALS: clear to auscultation bilaterally EFFORT & INSPECTION: Yes able to speak in complete sentences and Yes tachypneic AUSCULTATION: clear to auscultation bilaterally Cardio: COMMON NORMALS: regular rhythm RATE: tachycardic RHYTHM: regular rhythm GI: COMMON NORMALS: soft to palpation and no masses INSPECTION: Yes abdominal wall edema and Yes other (erythema and tenderness on his abdomen, tender to touch) AUSCULTATION: Yes normoactive bowel sounds PALPATION: Yes soft, No guarding and No rigid Back/Pelvis: OTHER: decreasedl range of motion Extremity: GENERAL: Yes normal exam except as noted RIGHT LOWER EXTREMITY: Yes knee joint (old abrasion) LEFT LOWER EXTREMITY: Yes knee joint (old abrasion) Neuro: COMMON NORMALS: CN's II-XII intact bilaterally SENSORIUM/ORIENTATION: Yes alert Psych: COMMON NORMALS: negative for thought process normal APPEARANCE: No well kempt THOUGHT PROCESS: abnormal OTHER: Pressured speech, confused. Makes statements that leads me to believe he is confabulating and hallucinating. He looked at the wall and made comments about those things up there in response to a simple question during his HPI that did not make sense. When I told him he needed to be admitted he said just give me a rag to tie around my ribs and honey go buy me a soda I will give you the money next time I see ya Course Vital Signs: Vital signs: Vital Signs Temperature 97.7 F 10/18/19 17:25 Pulse Rate 135 H 10/18/19 17:25 Respiratory Rate 18 10/18/19 18:13 Blood Pressure 153/107 10/18/19 17:25 Pulse Oximetry 94 10/18/19 18:13 MDM - Fall MDM Narrative: Medical decision making narrative: 69-year-old male with frequent falls that lives at home with his . He was hospitalized here and subsequently transferred to [place] earlier this year for frequent falls coagulopathy and hematoma on his neck. He apparently fell again today and was stuck between the heater and another piece of furniture. He denies alcohol use but has pressured speech is tachycardic and hypertensive and seems to be confabulating and possibly hallucinating at times. Was given a dose of Ativan in the emergency department to see if this improved his vital signs. Alcohol level is nondetectable at this time. Discussed with hospitalist will admit. C- collar was placed when I initially saw the patient in the room and asked for c- collar, I did take off the c-collar off after CT was back. He does have multiple rib fractures as well. Lab Data: Labs: Lab Results 10/18/19 10/18/19 10/18/19 Range/Units 18:15 18:15 18:15 WBC 13.3 H (4.0-10.0) 10^3/ uL RBC 5.16 (4.1-5.3) 10^6/u L Hgb 15.9 (11.7-16.6) g/dL Hct 48.9 (42.0-52.0) % MCV 94.8 H (80-94) fL MCH 30.8 (28.0-34.0) pg MCHC 32.5 (30.0-36.0) g/dL RDW 13.2 (12.1-15.1) % Plt Count 353 (130-400) 10^3/c mm MPV 9.2 (7.4-10.4) fL Neut % (Auto) 77.5 % Lymph % (Auto) 13.1 % [place] % (Auto) 8.5 % Eos % (Auto) 0.0 % Baso % (Auto) 0.5 % Neut # (Auto) 10.3 H (1.8-7.7) 10^3/u L Lymph # (Auto) 1.7 (0.8-4.8) 10^3/u L [place] # (Auto) 1.1 H (0.2-0.9) 10^3/u L Eos # (Auto) 0.0 (0.0-0.8) 10^3/u L Baso # (Auto) 0.1 (0.0-0.1) 10^3/u L Nucleated RBC % (a uto) 0 % Nucleated RBCs # 0.0 /100WBC PT 15.00 H (10.5-13.3) SECO NDS INR 1.14 (0.8-1.2) Sodium 144 (136-145) mmol/L Potassium 4.3 (3.5-5.1) mmol/L Chloride 104 (98-107) mmol/L Carbon Dioxide 18 L (22-29) mmol/L Anion Gap 26.3 H (5-19) BUN 26 H (8-23) mg/dL Creatinine 1.2 (0.7-1.2) mg/dL GFR Calculation 60.0 L (90-130) mL/min Glucose 124 H (65-115) mg/dL Calculated Osmolal ity 296 H (285-295) mOsm/k g Calcium 10.1 (8.5-10.5) mg/dL Total Bilirubin 1.6 H (0.15-1.2) mg/dL AST 153 H (0-40) U/L ALT 51 H (0-41) U/L Alkaline Phosphata se 79 (40-130) IU/L Total Protein 8.2 (6.6-8.7) g/dL Albumin 4.1 (3.5-5.2) g/dL Globulin 4.1 (1.3-4.6) g/dL Ethyl Alcohol (0-10) mg/dL 10/18/19 Range/Units 18:15 WBC (4.0-10.0) 10^3/ uL RBC (4.1-5.3) 10^6/u L Hgb (11.7-16.6) g/dL Hct (42.0-52.0) % MCV (80-94) fL MCH (28.0-34.0) pg MCHC (30.0-36.0) g/dL RDW (12.1-15.1) % Plt Count (130-400) 10^3/c mm MPV (7.4-10.4) fL Neut % (Auto) % Lymph % (Auto) % [place] % (Auto) % Eos % (Auto) % Baso % (Auto) % Neut # (Auto) (1.8-7.7) 10^3/u L Lymph # (Auto) (0.8-4.8) 10^3/u L [place] # (Auto) (0.2-0.9) 10^3/u L Eos # (Auto) (0.0-0.8) 10^3/u L Baso # (Auto) (0.0-0.1) 10^3/u L Nucleated RBC % (a uto) % Nucleated RBCs # /100WBC PT (10.5-13.3) SECO NDS INR (0.8-1.2) Sodium (136-145) mmol/L Potassium (3.5-5.1) mmol/L Chloride (98-107) mmol/L Carbon Dioxide (22-29) mmol/L Anion Gap (5-19) BUN (8-23) mg/dL Creatinine (0.7-1.2) mg/dL GFR Calculation (90-130) mL/min Glucose (65-115) mg/dL Calculated Osmolal ity (285-295) mOsm/k g Calcium (8.5-10.5) mg/dL Total Bilirubin (0.15-1.2) mg/dL AST (0-40) U/L ALT (0-41) U/L Alkaline Phosphata se (40-130) IU/L Total Protein (6.6-8.7) g/dL Albumin (3.5-5.2) g/dL Globulin (1.3-4.6) g/dL Ethyl Alcohol < 10 (0-10) mg/dL Imaging Data^: Other CT: Radiologist's impression: [address] [address] [address] Scan Report Signed Patient: Canelo Lara #: [id number] : 1950Acct#:[id number] Age/Sex: 69 / MADM Date: 10/18/19 Loc: ERRoom/Bed: Attending Dr: Ordering Provider/Ordering MD: Celeste Valdez MD Date of Service: 10/18/19 Procedure(s): CT cervical spin wo con* [id number] Accession Number(s): [id number] Report Number: [id number] PROCEDURE INFORMATION: Exam: CT Cervical Spine Without Contrast Exam date and time: 10/18/2019 6:32 PM Age: 69 years old Clinical indication: Injury or trauma; Fall; Initial encounter; Blunt trauma TECHNIQUE: Imaging protocol: Computed tomography images of the cervical spine without contrast. Total DLP: 775.13 mGy-cm Radiation optimization: All CT scans at this facility use at least one of these dose optimization techniques: automated exposure control; mA and/or kV adjustment per patient size (includes targeted exams where dose is matched to clinical indication); or iterative reconstruction. COMPARISON: CT angio neck [id number] 08/18/2019 7:15 AM FINDINGS: Vertebrae: No acute fracture. No subluxation. Calcification posterior to the spinous processes in the cervical spine is compatible with old injury. Discs/Spinal canal/Neural foramina: There are moderate diffuse degenerative changes in the cervical spine. Soft tissues: There is a right parietal scalp hematoma. Mastoid air cells: There is some sclerosis and trace opacification of the left inferior mastoid air cells compatible probable chronic mastoiditis. There is a trace amount of fluid in the right mastoid air cells. Lungs: Lung apices are normal. CT/CT cervical spin wo con* [id number] IMPRESSION: 1. 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 2. Degenerative changes. No acute bony abnormality. Radiation Dose CTDIVOL = (mGy): DLP = 775.13 (mGy-cm) Dictated By:Hedy Chatterjee Signed By:Alice Chatterjee Date/Time:10/18/191945 DD/ CT Head: Radiologist's impression: [place] [address] CT Scan Report Signed Patient: Canelo Lara #: [id number] : 1950Acct#:[id number] Age/Sex: 69 / MADM Date: 10/18/19 Loc: ERRoom/Bed: Attending Dr: Ordering Provider/Ordering MD: Celeste Valdez MD Date of Service: 10/18/19 Procedure(s): CT head wo con* [id number] Accession Number(s): [id number] Report Number: [id number] PROCEDURE INFORMATION: Exam: CT Head Without Contrast Exam date and time: 10/18/2019 6:07 PM Age: 69 years old Clinical indication: Injury or trauma; Fall TECHNIQUE: Imaging protocol: Computed tomography of the head without contrast. Total DLP: 913.3 mGy-cm Radiation optimization: All CT scans at this facility use at least one of these dose optimization techniques: automated exposure control; mA and/or kV adjustment per patient size (includes targeted exams where dose is matched to clinical indication); or iterative reconstruction. COMPARISON: CT head wo con* [id number] 07/21/2019 10:48 PM FINDINGS: Brain: There is volume loss and periventricular low density compatible with small vessel disease changes. Ventricles: Normal. No ventriculomegaly. Bones/joints: Unremarkable. No acute fracture. Sinuses: There is mild mucosal thickening in the sinuses unchanged since the prior exam. Mastoid air cells: Visualized mastoid air cells are well aerated. Soft tissues: There is a scalp hematoma overlying the right frontal/parietal bones. CT/CT head wo con* [id number] IMPRESSION: 1. Scalp hematoma. 2. No acute intracranial abnormality. Radiation Dose CTDIVOL = (mGy): DLP = 913.3 (mGy-cm) Dictated By:Hedy Chatterjee Signed By:Alice Chatterjee Date/Time:10/18/191942 DD/ CT Abd/Pel: Radiologist's impression: [address] [address] [address] Scan Report Signed with Addenda Patient: Canelo Lara #: [id number] : 1950Acct#:[id number] Age/Sex: 69 / MADM Date: 10/18/19 [facility] Dr: Ordering Provider/Ordering MD: Celeste Valdez MD Date of Service: 10/18/19 Procedure(s): CT chest abd pel w con* Accession Number(s): [id number] Report Number: [id number]/CT chest abd pel w con* The nodule in the anterior mediastinum may reflect an enlarged lymph node measuring 2.5 x 3.1 cm in size. Consider PET-CT or soft tissue sampling of the nodule. No additional mass or adenopathy. Radiation Dose CTDIVOL = (mGy): DLP = 2076.44~2076.44 (mGy-cm) Addendum Dictated By: Hedy Chatterjee Addendum Signed By: Alice Chatterjee Date/Time:10/18/191958 Addendum Cosigned By: PROCEDURE INFORMATION: Exam: CT Chest With Contrast Exam date and time: 10/18/2019 6:38 PM Age: 69 years old Clinical indication: Injury or trauma; Fall; Initial encounter; Generalized; Blunt trauma (contusions or hematomas); Additional info: Fall, contsuion, pain R chest /abd TECHNIQUE: Imaging protocol: Computed tomography of the chest with intravenous contrast. Total DLP: 2076.44 mGy-cm Radiation optimization: All CT scans at this facility use at least one of these dose optimization techniques: automated exposure control; mA and/or kV adjustment per patient size (includes targeted exams where dose is matched to clinical indication); or iterative reconstruction. Contrast material: OMNI 300; Contrast volume: 95 ml; Contrast route: LT AC; COMPARISON: CR XR chest 1V portable [id number] 10/18/2019 6:20 PM FINDINGS: Lungs: Nonspecific bibasilar ground-glass opacity right greater than left is present, consistent with atelectasis, edema, or pneumonia. Pleural space: Unremarkable. No pneumothorax. No pleural effusion. Heart: Unremarkable. No cardiomegaly. No pericardial effusion. Mediastinum: A moderate hiatal hernia is present. Aorta: Ascending thoracic aorta measures 4.1 cm. There is no dissection. The mid descending thoracic aorta measures 2.8 cm. Lymph nodes: There is a soft tissue nodule or lymph node in the anterior mediastinum measuring 2.5 by 3.1 cm in size. No additional adenopathy. Bones/joints: There are acute fractures of the anterior aspect of the right 6 and 7th ribs. There is also very subtle irregularity of the anterior aspect of the right 3rd through 5th ribs just adjacent to the costochondral junction suspected to be additional nondisplaced subtle fractures. Very subtle buckle deformity along the anterior lateral aspect of the left 4th and 5th ribs is identified suspected to be nondisplaced fractures adjacent to the costochondral junction. Chronic mild anterior wedging deformities are noted in the midthoracic spine. Soft tissues: Unremarkable. IMPRESSION: 1. There is a soft tissue nodule or lymph node in the anterior mediastinum measuring 2.5 by 3.1 cm in size. 2. Nonspecific bibasilar ground-glass opacity right greater than left is present, consistent with atelectasis, edema, or pneumonia. 3. Multiple right nondisplaced rib fractures. Probable subtle buckle fractures of the anterior left 4th and 5th ribs. PROCEDURE INFORMATION: Exam: CT Abdomen And Pelvis With Contrast Exam date and time: 10/18/2019 6:38 PM Age: 69 years old Clinical indication: Injury or trauma; Fall; Initial encounter; Generalized; Blunt trauma (contusions or hematomas); Additional info: Fall, contsuion, pain R chest /abd TECHNIQUE: Imaging protocol: Computed tomography of the abdomen and pelvis with intravenous contrast. Total DLP: 2076.44 mGy-cm Radiation optimization: All CT scans at this facility use at least one of these dose optimization techniques: automated exposure control; mA and/or kV adjustment per patient size (includes targeted exams where dose is matched to clinical indication); or iterative reconstruction. Contrast material: OMNI 300; Contrast volume: 95 ml; Contrast route: LT AC; COMPARISON: CR XR chest 1V portable [id number] 10/18/2019 6:20 PM FINDINGS: Mediastinum: A moderate hiatal hernia is present. Liver: Unremarkable.No mass. Gallbladder and bile ducts: Normal. No calcified stones. No ductal dilation. Pancreas: Normal. No ductal dilation. Spleen: Normal. No splenomegaly. Adrenals: Normal. No mass. Kidneys and ureters: There is inflammatory perinephric stranding. There is no evidence of hydronephrosis. Stomach and bowel: Unremarkable. No obstruction. No mucosal thickening. Appendix: No evidence of appendicitis. Intraperitoneal space: Unremarkable. No free air. No significant fluid collection. Vasculature: Unremarkable.No abdominal aortic aneurysm. Lymph nodes: Unremarkable.No enlarged lymph nodes. Bladder: There is nonspecific bladder wall thickening. This may be related to incomplete distention. Reproductive: Unremarkable as visualized. Bones/joints: Osteopenia and moderate degenerative changes in the spine are noted. Soft tissues: There is a nonobstructing left inguinal hernia. Other findings: There is incidental edema in the right forearm at the edge of the field of view. CT/CT chest abd pel w con* IMPRESSION: 1. No acute abnormality in the abdomen or pelvis. 2. Incidental soft tissue edema in the visualized right arm. Radiation Dose CTDIVOL = (mGy): DLP = 2076.44~2076.44 (mGy-cm) Dictated By:Hedy Chatterjee Signed By:Alice Chatterjee Date/Time:10/18/191953 DD/ Discharge Plan Discharge Patient Disposition: Admitted As Inpatient Clinical Impression: Recurrent falls Multiple rib fractures Qualifiers: Encounter type: initial encounter Fracture type: closed Laterality: right Qualified Code(s): S22.41XA - Multiple fractures of ribs, right side, initial encounter for closed fracture Change in mental status Qualifiers: Altered mental status type: unspecified Qualified Code(s): R41.82 - Altered mental status, unspecified Discharge Date/Time: 10/18/19 17:43 Coding Level of Care Code ED Plant Maintenance Technician for Chg Fwd Exam Comprehensive The documentation recorded by the Kemal chahal Valerie R, accurately reflects the service I personally performed and the decisions made by , Celeste Valdez MD Oct 18, 2019 17:21
--- NOTE | 2019-10-18 18:05 | CTR_ITS ---
PROCEDURE INFORMATION: Exam: CT Cervical Spine Without Contrast Exam date and time: 10/18/2019 6:32 PM Age: 69 years old Clinical indication: Injury or trauma; Fall; Initial encounter; Blunt trauma TECHNIQUE: Imaging protocol: Computed tomography images of the cervical spine without contrast. Total DLP: 775.13 mGy-cm Radiation optimization: All CT scans at this facility use at least one of these dose optimization techniques: automated exposure control; mA and/or kV adjustment per patient size (includes targeted exams where dose is matched to clinical indication); or iterative reconstruction. COMPARISON: CT angio neck [id number] 08/18/2019 7:15 AM FINDINGS: Vertebrae: No acute fracture. No subluxation. Calcification posterior to the spinous processes in the cervical spine is compatible with old injury. Discs/Spinal canal/Neural foramina: There are moderate diffuse degenerative changes in the cervical spine. Soft tissues: There is a right parietal scalp hematoma. Mastoid air cells: There is some sclerosis and trace opacification of the left inferior mastoid air cells compatible probable chronic mastoiditis. There is a trace amount of fluid in the right mastoid air cells. Lungs: Lung apices are normal. CT/CT cervical spin wo con* [id number] IMPRESSION: 1. 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 2. Degenerative changes. No acute bony abnormality. Radiation Dose CTDIVOL = (mGy): DLP = 775.13 (mGy-cm)
--- NOTE | 2019-10-18 18:05 | CTR_ITS ---
PROCEDURE INFORMATION: Exam: CT Chest With Contrast Exam date and time: 10/18/2019 6:38 PM Age: 69 years old Clinical indication: Injury or trauma; Fall; Initial encounter; Generalized; Blunt trauma (contusions or hematomas); Additional info: Fall, contsuion, pain R chest /abd TECHNIQUE: Imaging protocol: Computed tomography of the chest with intravenous contrast. Total DLP: 2076.44 mGy-cm Radiation optimization: All CT scans at this facility use at least one of these dose optimization techniques: automated exposure control; mA and/or kV adjustment per patient size (includes targeted exams where dose is matched to clinical indication); or iterative reconstruction. Contrast material: OMNI 300; Contrast volume: 95 ml; Contrast route: LT AC; COMPARISON: CR XR chest 1V portable [id number] 10/18/2019 6:20 PM FINDINGS: Lungs: Nonspecific bibasilar ground-glass opacity right greater than left is present, consistent with atelectasis, edema, or pneumonia. Pleural space: Unremarkable. No pneumothorax. No pleural effusion. Heart: Unremarkable. No cardiomegaly. No pericardial effusion. Mediastinum: A moderate hiatal hernia is present. Aorta: Ascending thoracic aorta measures 4.1 cm. There is no dissection. The mid descending thoracic aorta measures 2.8 cm. Lymph nodes: There is a soft tissue nodule or lymph node in the anterior mediastinum measuring 2.5 by 3.1 cm in size. No additional adenopathy. Bones/joints: There are acute fractures of the anterior aspect of the right 6 and 7th ribs. There is also very subtle irregularity of the anterior aspect of the right 3rd through 5th ribs just adjacent to the costochondral junction suspected to be additional nondisplaced subtle fractures. Very subtle buckle deformity along the anterior lateral aspect of the left 4th and 5th ribs is identified suspected to be nondisplaced fractures adjacent to the costochondral junction. Chronic mild anterior wedging deformities are noted in the midthoracic spine. Soft tissues: Unremarkable. IMPRESSION: 1. There is a soft tissue nodule or lymph node in the anterior mediastinum measuring 2.5 by 3.1 cm in size. 2. Nonspecific bibasilar ground-glass opacity right greater than left is present, consistent with atelectasis, edema, or pneumonia. 3. Multiple right nondisplaced rib fractures. Probable subtle buckle fractures of the anterior left 4th and 5th ribs. PROCEDURE INFORMATION: Exam: CT Abdomen And Pelvis With Contrast Exam date and time: 10/18/2019 6:38 PM Age: 69 years old Clinical indication: Injury or trauma; Fall; Initial encounter; Generalized; Blunt trauma (contusions or hematomas); Additional info: Fall, contsuion, pain R chest /abd TECHNIQUE: Imaging protocol: Computed tomography of the abdomen and pelvis with intravenous contrast. Total DLP: 2076.44 mGy-cm Radiation optimization: All CT scans at this facility use at least one of these dose optimization techniques: automated exposure control; mA and/or kV adjustment per patient size (includes targeted exams where dose is matched to clinical indication); or iterative reconstruction. Contrast material: OMNI 300; Contrast volume: 95 ml; Contrast route: LT AC; COMPARISON: CR XR chest 1V portable [id number] 10/18/2019 6:20 PM FINDINGS: Mediastinum: A moderate hiatal hernia is present. Liver: Unremarkable.No mass. Gallbladder and bile ducts: Normal. No calcified stones. No ductal dilation. Pancreas: Normal. No ductal dilation. Spleen: Normal. No splenomegaly. Adrenals: Normal. No mass. Kidneys and ureters: There is inflammatory perinephric stranding. There is no evidence of hydronephrosis. Stomach and bowel: Unremarkable. No obstruction. No mucosal thickening. Appendix: No evidence of appendicitis. Intraperitoneal space: Unremarkable. No free air. No significant fluid collection. Vasculature: Unremarkable.No abdominal aortic aneurysm. Lymph nodes: Unremarkable.No enlarged lymph nodes. Bladder: There is nonspecific bladder wall thickening. This may be related to incomplete distention. Reproductive: Unremarkable as visualized. Bones/joints: Osteopenia and moderate degenerative changes in the spine are noted. Soft tissues: There is a nonobstructing left inguinal hernia. Other findings: There is incidental edema in the right forearm at the edge of the field of view. CT/CT chest abd pel w con* IMPRESSION: 1. No acute abnormality in the abdomen or pelvis. 2. Incidental soft tissue edema in the visualized right arm. Radiation Dose CTDIVOL = (mGy): DLP = 2076.44~2076.44 (mGy-cm)
--- NOTE | 2019-10-18 18:05 | CTR_ITS ---
PROCEDURE INFORMATION: Exam: CT Head Without Contrast Exam date and time: 10/18/2019 6:07 PM Age: 69 years old Clinical indication: Injury or trauma; Fall TECHNIQUE: Imaging protocol: Computed tomography of the head without contrast. Total DLP: 913.3 mGy-cm Radiation optimization: All CT scans at this facility use at least one of these dose optimization techniques: automated exposure control; mA and/or kV adjustment per patient size (includes targeted exams where dose is matched to clinical indication); or iterative reconstruction. COMPARISON: CT head wo con* [id number] 07/21/2019 10:48 PM FINDINGS: Brain: There is volume loss and periventricular low density compatible with small vessel disease changes. Ventricles: Normal. No ventriculomegaly. Bones/joints: Unremarkable. No acute fracture. Sinuses: There is mild mucosal thickening in the sinuses unchanged since the prior exam. Mastoid air cells: Visualized mastoid air cells are well aerated. Soft tissues: There is a scalp hematoma overlying the right frontal/parietal bones. CT/CT head wo con* [id number] IMPRESSION: 1. Scalp hematoma. 2. No acute intracranial abnormality. Radiation Dose CTDIVOL = (mGy): DLP = 913.3 (mGy-cm)
[2019-10-18] MEDS: sodium chloride 0.9% 1,000 ML 999 ML IV (18:12)
[2019-10-18 18:13] VITALS: RESP 18; O2SAT 94
[2019-10-18] MEDS: fentaNYL 50 mcg/mL INJ 2mL 25 MCG IVP (18:13)
[2019-10-18 18:25] LABS: Basophils # 0.1 10^3/uL (0.0-0.1); Basophils % 0.5 %; Hematocrit 48.9 % (42.0-52.0); Hemoglobin 15.9 g/dL (11.7-16.6); Lymphocytes # 1.7 10^3/uL (0.8-4.8); Lymphocytes % 13.1 %; Mean Corpuscular HGB Conc 32.5 g/dL (30.0-36.0); Mean Corpuscular Hemoglobin 30.8 pg (28.0-34.0); Mean Corpuscular Volume 94.8 fL (80-94); Mean Platelet Volume 9.2 fL (7.4-10.4); Monocytes # 1.1 10^3/uL (0.2-0.9); Monocytes % 8.5 %; Neutrophils # 10.3 10^3/uL (1.8-7.7); Neutrophils % 77.5 %; Nucleated Red Blood Cells % 0 %; Platelet Count 353 10^3/cmm (130-400); Red Blood Count 5.16 10^6/uL (4.1-5.3); Red Cell Distribution Width 13.2 % (12.1-15.1); White Blood Count 13.3 10^3/uL (4.0-10.0)
[2019-10-18 18:40] LABS: Alanine Aminotransferase 51 U/L (0-41); Albumin Level 4.1 g/dL (3.5-5.2); Alkaline Phosphatase 79 IU/L (40-130); Anion Gap 26.3 (5-19); Aspartate Amino Transferase 153 U/L (0-40); Blood Urea Nitrogen 26 mg/dL (8-23); Calcium 10.1 mg/dL (8.5-10.5); Carbon Dioxide 18 mmol/L (22-29); Chloride 104 mmol/L (98-107); Globulin 4.1 g/dL (1.3-4.6); Glucose 124 mg/dL (65-115); Osmolality Calculated 296 mOsm/kg (285-295); Potassium 4.3 mmol/L (3.5-5.1); Sodium 144 mmol/L (136-145); Total Bilirubin 1.6 mg/dL (0.15-1.2); Total Protein 8.2 g/dL (6.6-8.7)
[2019-10-18 18:43] LABS: INR 1.14 (0.8-1.2)
[2019-10-18] MEDS: iohexol 300 mg/mL 100 mL Btl 95 ML IV (19:25)
[2019-10-18] MEDS: LORazepam 2 mg/mL INJ 1 mL 0.5 MG IVP (19:35)
[2019-10-18 20:05] LABS: Alcohol Level < 10 mg/dL (0-10)
--- NOTE | 2019-10-18 20:24 | P.HP_ITS ---
Providers/Chief Complaint Chief Complaint: FALL / RIGHT SIDE RIB PAIN History of Present Illness Canelo Lara is a 69 year old male who carries diagnosis of hypertension, neck hematoma secondary to a fall in the past, hepatic encephalopathy, alcohol induced hepatitis, he was transferred to [facility] for above- mentioned concerns, he stayed in the hospital for at least 10 days as per my conversation with her sister who is in [place] over the phone. Sister is telling me that he lives alone, drinks alcohol on daily basis, he is not in contact with his children, 2 sisters check up on him via phone, one sister is in [place] and other one is in [place]. When they were trying to reach out to him today he was not picking up his phone, 911 was called to check up on him. He was found on the floor. Patient seems to be very agitated in the ER, he is endorsing that he is trying to cut down on his alcohol usage. He is stating that currently he is working on his cars, his home condition is very poor, he does not have a bed to sleep and he sleeps on a concrete floor. He has been falling in his home. He is endorsing to drinking whiskey 2-4 shots, but not able to tell me the frequency. He is endorsing pain around his rib cage bilaterally, he is attributing his multiple hyperemic skin rashes to sleeping on the floor. He denies smoking, he denies abdominal pain, dysuria, chest pain, shortness of breath, neck stiffness. Mr. Lara is stating that his last proper meal was 3 days ago, he tries to eat outside, he would like to go back to his work and work on his cars. As per my conversation with his sister Sister Marely Lara phone number [phone], she lives in [place] She is telling me that they have tried to help Mr. Lara, she was with him when he was transferred to [facility], according to her swelling on right side of his neck was drained and he received 3 rounds of antibiotics, his liver enzymes were abnormal secondary to alcohol induced hepatitis. Both sisters are very upset and perplexed with his chronic drinking habit. I conveyed my message to them that Mr. Lara is trying to leave AGAINST MEDICAL ADVICE, he has decision-making capacity, he knows where he is, he is able to tell me all the details mentioned above, his judgment is intact. also talked with his sister over the phone as well. They had heated argument and sister said if he wants to leave AMA it will be his choice . After lengthy discussion with Mr. Lara agreed to stay 1 night with us. Diagnostics in ER revealed leukocytosis, patient was afebrile, awake, alert he was not confused but had coarse tremors of his extremities, judgment intact, a lcohol level undetectable, sinus tachycardia, hypertensive, imaging revealed rib fractures, CT head negative, CT abdomen negative, groundglass opacities in the lungs right greater than left, positive scalp hematoma, widened mediastinum with anterior mediastinum nodule 2 x 3 cm with hiatal hernia Ascending aorta 4.1 cm without dissection Review of Systems Const: Reports: body aches and change in appetite; Denies: fever or chills Eyes: Reports: eye redness; Denies: change in vision, photophobia or eye discomfort ENMT: Denies: throat pain Card: Denies: chest pain, palpitations, irregular heart rhythm or edema Resp: Denies: shortness of breath GI: Denies: abdominal pain, nausea, vomiting or coffee grounds in vomit : Denies: flank pain or difficulty urinating Musc: Denies: neck pain or back pain Skin/Breast: Reports: rash, redness, skin swelling, new lesion and changing lesion; Denies: itching, skin tenderness or sores Neuro: Denies: headache or numbness in extremities Psych: Reports: anxiety Endo: Denies: excessive urination Angel/Lymph: Denies: easy bruising All/Imm: Denies: hives Medications/Allergies Home Medications Medication Instructions Recorded Confirmed Last Taken Type hydroxyzine HCl See Rx Instructions .ROUTE .COMPLEX 10/18/19 10/18/19 Unknown History Allergies Allergy/AdvReac Type Severity Reaction Status Date / Time No Known Allergies Allergy Verified 08/17/19 13:30 PFSH Acute PFSH: Medical History (Updated 10/18/19 @ 22:30 by Latricia Nair MD) Alcoholism Hematoma Hepatic encephalopathy Liver cirrhosis Recurrent falls Surgical History (Updated 10/18/19 @ 22:30 by Latricia Nair MD) H/O inguinal hernia repair Family History (Updated 10/18/19 @ 22:31 by Latricia Nair MD) Denies family history of Clotting disorder Dementia Chronic kidney disease (CKD) Cancer Social History (Updated 10/18/19 @ 22:32 by Latricia Nair MD) Smoking and tobacco status: former smoker Alcohol intake: current Lives independently: Yes Household members: other Details: He lives alone Housing: House Marital status: Single Vitals/I&O/Wt Last Vital Signs Temp 97.7 F 10/18/19 17:25 Pulse 135 H 10/18/19 17:25 Resp 18 10/18/19 18:13 BP 153/107 10/18/19 17:25 Pulse Ox 94 10/18/19 18:13 10/18/19 10/18/19 10/18/19 06:59 14:59 22:59 Intake Total 1000 / 1000 Balance 1000 / 1000 Weight last 48 hrs Weight 74.843 kg Physical Exam Narrative: EXAM NARRATIVE: Mr. Lara seems to be in agony because of rib pain Purposeless movement of his extremities, no asterixis Coarse tremors positive Hyperemic conjunctivo-without drainage, EOMI, PERRLA, Dry buccal mucosal membrane with dry lips Flushed facial skin No visible vessels on face or anterior wall of the chest Fluctuant mass 4 x 5 cm on right side of his occipital bone, nontender, no active drainage Scalp hematoma without active drainage Multiple bruises and skin lacerations all over his body including scalp, face, arms, rib cage, knees and shins, no active bleeding He is wearing an adult diaper trying to rip off his gown S1, S2 sinus tachycardia Lungs are clear to auscultation no adventitious sounds Abdomen soft nontender Rib cage tenderness, no rib retractions noted Patient is awake, alert, oriented x3, GCS 15, he is able to tell me that if there is a fire in the room he would run out of the window He has good comprehension, no slurred speech, no facial asymmetry Data : 10/18/19 18:15 10/18/19 18:15 A&P Assessment and plan (1) Alcoholic hepatitis: Status: Acute Code(s): K70.10 - Alcoholic hepatitis without ascites (2) Alcohol abuse: Status: Acute Code(s): F10.10 - Alcohol abuse, uncomplicated (3) Multiple rib fractures: Status: Acute Qualifiers: Encounter type: initial encounter Fracture type: closed Laterality: right Qualified Code(s): S22.41XA - Multiple fractures of ribs, right side, initial encounter for closed fracture Code(s): S22.49XA - Multiple fractures of ribs, unspecified side, initial encounter for closed fracture (4) Recurrent falls: Status: Acute Code(s): R29.6 - Repeated falls Additional A&P Information Alcoholic hepatitis Liver enzymes AST greater than ALT Alcohol level undetectable Coarse tremors positive, patient wanted to leave AMA and decided to stay at least one night with us, Admit to ICU, CIWA protocol Thiamine, folic acid For acute psychosis would use as needed Haldol Check ammonia level No signs of hepatic encephalopathy, his signs and symptoms are consistent with alcohol induced hepatitis, psychosis, History stating that he was not diagnosed with hepatitis AB or C, I would not repeat the test and will follow up with the records from [facility] Recurrent falls Previously presented with neck hematoma, he was transferred to [facility], will obtain records from there Has chronic rib fractures Analgesics for rib cage pain No active respiratory distress We will check B12 level, Not able to really examine his sensory levels because of his active agitation but I would 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, alcohol intoxication and Wernicke's Korsakoff syndrome to be 1 of the causes for his symptoms We will give him high-dose thiamine Hypertension I would continue lisinopril and beta-mirella this seems to be hyperadrenergic state from alcohol withdrawal Wide mediastinum seen on imaging with anterior mediastinal lymph node 2 x 3 cm positive hiatal hernia without any aortic dissection signs Groundglass opacities right greater than left lung: Monitor for signs of pneumonia, I believe he might have aspirated because of his alcohol intoxication, monitor for now without antibiotics Full code DVT prophylaxis: SCDs because of recent falls, scalp hematoma Cardiac diet Attestations Medical Necessity Statement*: Anticipating his stay in the hospital to cross more than 2 midnights currently he is an active alcohol withdrawal, positive for alcohol induced hepatitis Time Spent in Patient Care: 45 Critical Care Time: Critical Care Time (min): 30 Coding Level of Care Code Acute Legal Officer for [employer] Diagnoses Alcoholic hepatitis K70.10 Alcohol abuse F10.10 Multiple rib fractures S22.41XA Encounter type: initial encounter Fracture type: closed Laterality: right Recurrent falls R29.6
[2019-10-18 23:21] VITALS: RESP 19
[2019-10-19] VITALS (23 sets, daily range): BP systolic 93–153; BP diastolic 61–108; PULSE 91–124; RESP 14–31; TEMP 36.3–36.9; O2SAT 86–100
[2019-10-19 01:07] LABS: Ammonia 20 umol/L (16-60)
[2019-10-19 01:08] LABS: Lactic Acid level (Lactate) 1.6 mmol/L (0.5-2.2)
[2019-10-19 01:23] LABS: Vitamin B12 828 pg/mL (232-1245)
[2019-10-19 01:33] LABS: Amphetamines Screen Urine Negative (Negative); Barbiturates Screen Urine Negative (Negative); Benzodiazepines Screen Urine Negative (Negative); Cocaine Screen Urine Negative (Negative); Opiate Screen Urine Negative (Negative); PCP Screen Urine Negative (Negative); THC Screen Urine Negative (Negative)
[2019-10-19] MEDS: morphine 4 mg/mL SDV 1 mL 2 MG IVP (01:43)
--- NOTE | 2019-10-19 02:06 | XR_ITS ---
WS: [id number] Right elbow, 10/19/2019 Clinical Data: fall edematous Comparison: None. Findings: No fractures or dislocations are seen. The radial head is normal. The soft tissues are unremarkable. XR/XR elbow RT min 3V* [id number] Impression: Negative right elbow.
--- NOTE | 2019-10-19 02:08 | XR_ITS ---
WS: [id number] Right arm and humerus, 2 views, 10/19/2019 Clinical Data: fall edema Comparison: None. Findings: No fractures or dislocations are seen. The shaft of the humerus is intact. The visualized right elbo w is unremarkable. Right pleural thickening is seen in the patient may have a small right effusion. T here may be small anterior rib fractures of right seventh and eighth ribs. XR/[place] [id number] Impression: 1. Negative right arm and humerus. 2. Possible right anterior seventh and right rib fractures. 3. Small right pleural effusion.
--- NOTE | 2019-10-19 02:10 | XR_ITS ---
WS: [id number] Right shoulder, 3 views, 10/19/2019 Clinical Data: fall Comparison: None. Findings: No fractures or dislocations are seen. The AC joint is normal. The adjacent right clavicle, right sca pula and ribs are normal. The soft tissues are unremarkable. There is calcification in the right side of the neck which may be in the right carotid artery. XR/XR shoulder RT min 2V* [id number] Impression: Negative right shoulder.
[2019-10-19] MEDS: LORazepam 2 mg/mL INJ 1 mL IVP ×6 (02:21→23:47)
[2019-10-19 05:13] LABS: Basophils # 0.1 10^3/uL (0.0-0.1); Basophils % 0.6 %; Eosinophils % 0.1 %; Hematocrit 46.2 % (42.0-52.0); Hemoglobin 14.7 g/dL (11.7-16.6); Lymphocytes # 1.9 10^3/uL (0.8-4.8); Lymphocytes % 16.1 %; Mean Corpuscular HGB Conc 31.8 g/dL (30.0-36.0); Mean Corpuscular Hemoglobin 30.6 pg (28.0-34.0); Monocytes # 1.1 10^3/uL (0.2-0.9); Monocytes % 9.3 %; Neutrophils # 8.7 10^3/uL (1.8-7.7); Neutrophils % 73.6 %; Nucleated Red Blood Cells % 0 %; Platelet Count 270 10^3/cmm (130-400); Red Blood Count 4.81 10^6/uL (4.1-5.3); Red Cell Distribution Width 13.3 % (12.1-15.1); White Blood Count 11.9 10^3/uL (4.0-10.0)
[2019-10-19 05:29] LABS: Alanine Aminotransferase 56 U/L (0-41); Albumin Level 3.5 g/dL (3.5-5.2); Alkaline Phosphatase 67 IU/L (40-130); Anion Gap 19.1 (5-19); Aspartate Amino Transferase 162 U/L (0-40); Blood Urea Nitrogen 24 mg/dL (8-23); Calcium 9.4 mg/dL (8.5-10.5); Carbon Dioxide 22 mmol/L (22-29); Chloride 109 mmol/L (98-107); Globulin 3.9 g/dL (1.3-4.6); Glomerular Filtration Rate 83.7 mL/min (90-130); Glucose 120 mg/dL (65-115); Magnesium 2.3 mg/dL (1.7-2.3); Osmolality Calculated 300 mOsm/kg (285-295); Potassium 4.1 mmol/L (3.5-5.1); Sodium 146 mmol/L (136-145); Total Bilirubin 1.4 mg/dL (0.15-1.2); Total Protein 7.4 g/dL (6.6-8.7)
--- NOTE | 2019-10-19 07:53 | PM.PN ---
Subjective Subjective: Interval history: Canelo is sleepy, secondary to Ativan. He does appear comfortable. Medications: Reviewed: Yes Vitals/I&O/Wt Last Vital Signs Temp 97.6 F 10/19/19 04:00 Pulse 119 H 10/19/19 07:00 Resp 31 H 10/19/19 07:00 BP 125/97 10/19/19 07:00 Pulse Ox 94 10/19/19 07:00 10/18/19 10/19/19 10/19/19 22:59 06:59 14:59 Intake Total 1000 / 1000 240 / 1240 Output Total 450 / 450 Balance 1000 / 1000 -210 / 790 Weight last 48 hrs Weight 74.843 kg Physical Exam Narrative: EXAM NARRATIVE: General exam is sleepy, hematoma noted left scalp Cardiovascular tachycardic Lungs clear Abdomen is soft, positive bowel sounds Extremities no cyanosis clubbing or edema Urinary Catheter Management^: Parisi Latex: Cath Placed During This Visit: yes Urinary Catheter Date of Insertion: 10/19/19 Urinary Catheter Time of Insertion: 00:35 Data : 10/19/19 04:38 10/19/19 04:38 A&P Assessment and plan (1) Alcoholic hepatitis: Continue to follow LFTs closely. Avoid alcohol. Status: Acute Code(s): K70.10 - Alcoholic hepatitis without ascites (2) Alcohol abuse: When patient is able, discussion regarding abstinence will occur. Appears to have significant withdrawal. Thiamine, folate CIWA protocol has been initiated and this will continue. Start IV fluids, saline, 125 cc an hour Ammonia level normal Status: Acute Code(s): F10.10 - Alcohol abuse, uncomplicated (3) Multiple rib fractures: Monitor closely for any respiratory compromise Status: Acute Qualifiers: Encounter type: initial encounter Fracture type: closed Laterality: right Qualified Code(s): S22.41XA - Multiple fractures of ribs, right side, initial encounter for closed fracture Code(s): S22.49XA - Multiple fractures of ribs, unspecified side, initial encounter for closed fracture (4) Recurrent falls: Secondary to alcohol Status: Acute Code(s): R29.6 - Repeated falls Additional A&P Information History of hypertension. Currently on lisinopril Groundglass opacities right lung. Monitor for any respiratory symptoms History of reflux, start Protonix Full code DVT prophylaxis: SCDs because of recent falls, scalp hematoma Attestations Medical Necessity Statement*: Needs continued hospital stay for close monitoring secondary to alcohol withdrawal with noted tachycardia, hypertension. Coding Level of Care Code Acute Clinical Quality Assurance Associate for [facility] Fwd Diagnoses Alcoholic hepatitis K70.10 Alcohol abuse F10.10 Multiple rib fractures S22.41XA Encounter type: initial encounter Fracture type: closed Laterality: right Recurrent falls R29.6
[2019-10-19] MEDS: sodium chloride 0.9% 1,000 ML 125 ML IV ×3 (08:14→23:46)
[2019-10-19] MEDS: pantoprazole DR 40 mg Tablet PO (10:42)
[2019-10-19] MEDS: multivitamin therapeutic Tablet 1 TAB PO (10:42)
[2019-10-19] MEDS: folic acid 1 mg Tablet PO (10:42)
[2019-10-19] MEDS: thiamine 100 mg Tablet PO (10:42)
[2019-10-19] MEDS: lisinopril 10 mg Tablet PO (10:42)
--- NOTE | 2019-10-19 12:30 | PC.CHAP ---
Pastoral Care Encounter/Spiritual Assessment Type of Contact [] Declined heat treatment technician visit [] Patient/Family/Request visit [] Outpatient visit [] Follow-up visit [] Physician referral [] Code/Alert [x] Routine visit [] Staff referral [] Actively dying [] Patient sleeping [] Family support [] [] Out of room [] Palliative care [] [] Receiving care in room [] Pre-surgical visit [] Trauma [] Long length of stay [x] ICU visit [] Other: Relational/Emotional Strength [] Patient feels connected with others/family/visitors/staff [] Distress [] Loneliness/isolation [] Abandonment Spirituality of Patient [] Person of Lizzie [] Attends Shinto of their Lizzie [] Believes in Prayer [] Reads Bible or Bahai materials [] There are Spiritual issues to be addressed Reconciler Interventions [x] Prayer [] Active listening [] Non-anxious presence [] Spiritual/emotional support [] Crisis/trauma care [] Spiritual counseling [] Bereavement support [] Provided bereavement packet [] Provided Bible/devotional materials [] Provided toy/stuffed animal, coloring book to patient or family member [] Provided Communion [] Anointing/[place] [] Salvation [] Completed spiritual assessment [] Other: Impact on Illness or Injury [] Angry [] Fearful [] Anxious [] Often cries [] Exhaustion [] Unable to work [] Unable to attend temple [] Unable to walk/stand [] Unable to read [] Unable to drive [] Unable to eat/drink [] Unable to sleep [] Unable to be with family [] Patient intubated [x] Other: Summary Patient on ventilator and unconscious. Prayer provided. Time spent with patient 3 minutes
[2019-10-19 15:04] LABS: Protein Urine Trace (Negative); Urine Appearance Clear (CLEAR); Urine Color Yellow (Yellow)
[2019-10-19 15:05] LABS: Bilirubin Urine Neg (NEGATIVE); Blood Urine 3+ (Negative); Glucose Urine UA Norm (Normal); Ketones Urine 2+ (Negative); Leukocyte Esterase Urine Negative (Negative); Nitrate Urine Negative (Negative); Urobilinogen Urine Norm (Negative)
[2019-10-19 15:17] LABS: Add Urine Culture? Yes; Bacteria Urine 1+; Hyaline Casts Urine 0-4; Mucus Urine 1+; Squamous Epithelial Cell Urine RARE (0-5); WBC Urine 0-4 /hpf (0-5)
[2019-10-20] VITALS (28 sets, daily range): BP systolic 123–176; BP diastolic 89–111; PULSE 93–110; RESP 14–36; TEMP 36.6–37.2; O2SAT 93–99
[2019-10-20] MEDS: morphine 4 mg/mL SDV 1 mL 2 MG IVP (01:56)
[2019-10-20] MEDS: LORazepam 2 mg/mL INJ 1 mL IVP ×2 (03:42→08:41)
[2019-10-20 04:56] LABS: Basophils # 0.1 10^3/uL (0.0-0.1); Basophils % 0.6 %; Eosinophils # 0.1 10^3/uL (0.0-0.8); Eosinophils % 1.6 %; Hematocrit 45.3 % (42.0-52.0); Hemoglobin 13.7 g/dL (11.7-16.6); Lymphocytes # 1.9 10^3/uL (0.8-4.8); Lymphocytes % 22.2 %; Mean Corpuscular HGB Conc 30.2 g/dL (30.0-36.0); Mean Corpuscular Hemoglobin 31.6 pg (28.0-34.0); Mean Corpuscular Volume 104.6 fL (80-94); Mean Platelet Volume 9.4 fL (7.4-10.4); Monocytes # 0.9 10^3/uL (0.2-0.9); Monocytes % 10.2 %; Neutrophils # 5.7 10^3/uL (1.8-7.7); Neutrophils % 65.1 %; Nucleated Red Blood Cells % 0 %; Platelet Count 180 10^3/cmm (130-400); Red Blood Count 4.33 10^6/uL (4.1-5.3); Red Cell Distribution Width 13.3 % (12.1-15.1); White Blood Count 8.7 10^3/uL (4.0-10.0)
[2019-10-20 05:05] LABS: INR 1.06 (0.8-1.2)
[2019-10-20 05:12] LABS: Alanine Aminotransferase 55 U/L (0-41); Albumin Level 3.5 g/dL (3.5-5.2); Alkaline Phosphatase 61 IU/L (40-130); Anion Gap 21.4 (5-19); Aspartate Amino Transferase 132 U/L (0-40); Blood Urea Nitrogen 20 mg/dL (8-23); Calcium 8.9 mg/dL (8.5-10.5); Carbon Dioxide 21 mmol/L (22-29); Chloride 108 mmol/L (98-107); Creatinine Clr Calc Pharmacy 89.1903; Globulin 3.3 g/dL (1.3-4.6); Glomerular Filtration Rate 95.8 mL/min (90-130); Glucose 75 mg/dL (65-115); Osmolality Calculated 297 mOsm/kg (285-295); Potassium 4.4 mmol/L (3.5-5.1); Sodium 146 mmol/L (136-145); Total Bilirubin 1.3 mg/dL (0.15-1.2); Total Protein 6.8 g/dL (6.6-8.7)
[2019-10-20] MEDS: haloperidol inj 5 mg/mL INJ 1 mL 2 MG IM ×3 (05:49→19:22)
--- NOTE | 2019-10-20 05:52 | PC.NURSE ---
2mg IM Haldol given into right deltoid for agitation. Pt is disoriented thinks he is in an apartment and needs to get out of here . Yelling out. Making multiple attempts to get out of bed. Pulling at rey, telemetry, IV catheter.
--- NOTE | 2019-10-20 07:06 | P.PN_ITS ---
Subjective Subjective: Interval history: Canelo is talking to himself before he entered the room. He can focus, and have a conversation but appears confused. Overall he does appear better than yesterday. Medications: Reviewed: Yes Vitals/I&O/Wt Last Vital Signs Temp 98.9 F 10/20/19 06:00 Pulse 99 10/20/19 06:00 Resp 16 10/20/19 06:00 BP 133/93 10/20/19 06:00 Pulse Ox 96 10/20/19 04:00 10/19/19 10/20/19 10/20/19 22:59 06:59 14:59 Intake Total 1324.583 / 7141.781 9553.333 / 3342.916 Output Total 375 / 375 Balance 1324.583 / 6125.121 3303.333 / 2967.916 Weight last 48 hrs Weight 74.843 kg Physical Exam Narrative: EXAM NARRATIVE: General exam is sleepy, hematoma noted left scalp Cardiovascular tachycardic but improved from yesterday Lungs clear Abdomen is soft, positive bowel sounds Extremities no cyanosis clubbing or edema Confused but conversant Urinary Catheter Management^: Parisi Latex: Cath Placed During This Visit: yes Reason for Continuing Indwelling Catheter: Accurate Measurement of Urinary Output in Critically Ill Patients Urinary Catheter Date of Insertion: 10/19/19 Urinary Catheter Time of Insertion: 00:35 Data : 10/20/19 04:13 10/20/19 04:13 A&P Assessment and plan (1) Alcoholic hepatitis: Continue to follow LFTs closely. Avoid alcohol. Appears to be improving Status: Acute Code(s): K70.10 - Alcoholic hepatitis without ascites (2) Alcohol abuse: When patient is able, discussion regarding abstinence will occur. Still having significant withdrawal but overall appears to be improved. Heart rate is decreasing. Laboratory stable. Thiamine, folate. Thiamine was given at increased amount in case Wernicke's encephalopathy was present. CIWA protocol has been initiated and this will continue. Continue IV fluids Ammonia level normal Status: Acute Code(s): F10.10 - Alcohol abuse, uncomplicated (3) Multiple rib fractures: Monitor closely for any respiratory compromise Status: Acute Qualifiers: Encounter type: initial encounter Fracture type: closed Laterality: right Qualified Code(s): S22.41XA - Multiple fractures of ribs, right side, initial encounter for closed fracture Code(s): S22.49XA - Multiple fractures of ribs, unspecified side, initial encounter for closed fracture (4) Recurrent falls: Secondary to alcohol Status: Acute Code(s): R29.6 - Repeated falls Additional A&P Information History of hypertension. Currently on lisinopril Groundglass opacities right lung. Monitor for any respiratory symptoms History of reflux, start Protonix Full code DVT prophylaxis: SCDs because of recent falls, scalp hematoma Discharge planning to see. May need significant supportive care, referral to rehab, etc. on discharge Attestations Medical Necessity Statement*: Needs continued hospitalization for supportive care secondary to alcohol withdrawal Coding Level of Care Code Acute Hospice/Home Health Aide for g Fwd Diagnoses Alcoholic hepatitis K70.10 Alcohol abuse F10.10 Multiple rib fractures S22.41XA Encounter type: initial encounter Fracture type: closed Laterality: right Recurrent falls R29.6
[2019-10-20] MEDS: sodium chloride 0.9% 1,000 ML 125 ML IV ×2 (08:41→15:20)
--- NOTE | 2019-10-20 09:57 | PC.CHAP ---
Pastoral Care Encounter/Spiritual Assessment Type of Contact [] Declined environmental engineer scientist visit [] Patient/Family/Request visit [] Outpatient visit [] Follow-up visit [] Physician referral [] Code/Alert [x] Routine visit [] Staff referral [] Actively dying [] Patient sleeping [] Family support [] [] Out of room [] Palliative care [] [] Receiving care in room [] Pre-surgical visit [] Trauma [] Long length of stay [x] ICU visit [] Other: Relational/Emotional Strength [] Patient feels connected with others/family/visitors/staff [] Distress [] Loneliness/isolation [] Abandonment Spirituality of Patient [] Person of Lizzie [] Attends Faith of their Lizzie [] Believes in Prayer [] Reads Bible or Caodaism materials [] There are Spiritual issues to be addressed Stoneworking Belt Sander Interventions [] Prayer [] Active listening [] Non-anxious presence [] Spiritual/emotional support [] Crisis/trauma care [] Spiritual counseling [] Bereavement support [] Provided bereavement packet [] Provided Bible/devotional materials [] Provided toy/stuffed animal, coloring book to patient or family member [] Provided Communion [] Anointing/[place] [] Salvation [x] Completed spiritual assessment [] Other: Impact on Illness or Injury [] Angry [] Fearful [x] Anxious [] Often cries [] Exhaustion [] Unable to work [] Unable to attend christian [] Unable to walk/stand [] Unable to read [] Unable to drive [] Unable to eat/drink [] Unable to sleep [] Unable to be with family [] Patient intubated [] Other: Summary Patient not resting well at all. Time spent with patient
--- NOTE | 2019-10-20 19:24 | PC.NURSE ---
2mg IM Haldol given into left vastus lateralis for agitation. Pt in bed naked kicking legs in bed, making attempts to get out of bed. Observed pt grabbing at things in the air. Pulling off monitor cords, pulling at rey catheter. Pt redressed and monitors placed back. Side rails up X 3. Bed alarm is on.
[2019-10-21] VITALS (44 sets, daily range): BP systolic 90–205; BP diastolic 62–124; PULSE 93–117; RESP 16–32; TEMP 36.9–37.9; O2SAT 96–100
[2019-10-21] MEDS: sodium chloride 0.9% 1,000 ML 125 ML IV ×2 (00:13→08:42)
[2019-10-21 04:17] LABS: Basophils % 0.5 %; Eosinophils # 0.1 10^3/uL (0.0-0.8); Eosinophils % 1.2 %; Hematocrit 43.1 % (42.0-52.0); Hemoglobin 13.7 g/dL (11.7-16.6); Lymphocytes # 1.4 10^3/uL (0.8-4.8); Mean Corpuscular HGB Conc 31.8 g/dL (30.0-36.0); Mean Corpuscular Hemoglobin 31.6 pg (28.0-34.0); Mean Corpuscular Volume 99.5 fL (80-94); Mean Platelet Volume 9.2 fL (7.4-10.4); Monocytes # 0.7 10^3/uL (0.2-0.9); Monocytes % 8.4 %; Neutrophils # 5.5 10^3/uL (1.8-7.7); Neutrophils % 71.5 %; Nucleated Red Blood Cells % 0 %; Platelet Count 256 10^3/cmm (130-400); Red Blood Count 4.33 10^6/uL (4.1-5.3); Red Cell Distribution Width 12.7 % (12.1-15.1); White Blood Count 7.7 10^3/uL (4.0-10.0)
[2019-10-21] MEDS: hyDRALAzine 20 mg/mL INJ 1 mL 10 MG IVP (04:25)
--- NOTE | 2019-10-21 04:25 | PC.NURSE ---
10mg IV Hydralizine given to hypertension . BP 160/100 manually .
[2019-10-21 04:48] LABS: Alanine Aminotransferase 54 U/L (0-41); Albumin Level 3.3 g/dL (3.5-5.2); Alkaline Phosphatase 63 IU/L (40-130); Aspartate Amino Transferase 110 U/L (0-40); Blood Urea Nitrogen 10 mg/dL (8-23); Calcium 8.7 mg/dL (8.5-10.5); Carbon Dioxide 19 mmol/L (22-29); Chloride 107 mmol/L (98-107); Creatinine Clr Calc Pharmacy 89.1903; Globulin 3.7 g/dL (1.3-4.6); Glomerular Filtration Rate 111.8 mL/min (90-130); Glucose 69 mg/dL (65-115); Magnesium 1.9 mg/dL (1.7-2.3); Osmolality Calculated 292 mOsm/kg (285-295); Sodium 144 mmol/L (136-145); Total Bilirubin 1.1 mg/dL (0.15-1.2)
[2019-10-21] MEDS: LORazepam 2 mg/mL INJ 1 mL IVP (05:23)
[2019-10-21] MEDS: lisinopril 10 mg Tablet PO (05:43)
--- NOTE | 2019-10-21 05:43 | PC.NURSE ---
AM Lisinopril PO 10mg given early at this time for continued hypertension. BP 180/90.
[2019-10-21] MEDS: multivitamin therapeutic Tablet 1 TAB PO (08:23)
[2019-10-21] MEDS: pantoprazole DR 40 mg Tablet PO (08:23)
[2019-10-21] MEDS: thiamine 100 mg Tablet PO (08:23)
[2019-10-21] MEDS: folic acid 1 mg Tablet PO (08:23)
[2019-10-21] MEDS: piperacillin-tazobactam 3.375 GM in sodium chloride 0.9% (plus) 50 ML IV ×2 (08:50→16:01)
[2019-10-21] MEDS: sodium chloride 0.9% 1,000 ML 75 ML IV ×2 (08:53→12:29)
--- NOTE | 2019-10-21 09:21 | PC.NURSE ---
dc rey rey removed with 9ml ns removed from balloon. Pt tolerated it well.
[2019-10-21] MEDS: sodium chloride 0.9% 500 ML IV (09:31)
[2019-10-21 09:53] LABS: Ammonia 20 umol/L (16-60)
--- NOTE | 2019-10-21 10:44 | PC.SOCIAL ---
Pg 2 IMM Explained to pt Pg 2 IMM & provided pt a copy from admission. No questions voiced. Signed, dated, & timed a copy & placed in chart.
--- NOTE | 2019-10-21 11:15 | USR_ITS ---
PROCEDURE INFORMATION: Exam: US Abdomen Limited, Right Upper Quadrant Exam date and time: 10/21/2019 11:56 AM Age: 69 years old Clinical indication: Abdominal pain; Additional info: [employer] for sbp TECHNIQUE: Imaging protocol: Real-time ultrasound of the abdomen with image documentation. Examination was focused on the right upper quadrant. COMPARISON: US abdomen complete* [id number] 08/19/2019 6:01 PM FINDINGS: Liver: Normal. No masses. Gallbladder: Normal. No discrete shadowing gallstones. There is no gallbladder wall thickening. Low level echoes in dependent aspect of gallbladder may represent reverberation artifact versus some thick bile/sludge. Common bile duct: Common bile duct measures 3.9 mm. Pancreas: Visualized pancreas is unremarkable. Right kidney: Normal. No mass. No hydronephrosis. Other: No free fluid/ascites evident. US/US liver [id number] IMPRESSION: Low level echoes in dependent aspect of gallbladder may represent reverberation artifact versus thick bile/sludge. Otherwise, negative right upper quadrant sonogram.
--- NOTE | 2019-10-21 11:15 | XRR_ITS ---
PROCEDURE INFORMATION: Exam: XR Chest, 1 View Exam date and time: 10/21/2019 2:40 PM Age: 69 years old Clinical indication: Fever TECHNIQUE: Imaging protocol: XR of the chest Views: 1 view. COMPARISON: CR XR chest 1V portable [id number] 10/18/2019 6:20 PM FINDINGS: Lungs: No confluent infiltrate evident. Pleural space: Indistinct costophrenic angles may indicate small pleural effusions. Heart/Mediastinum: Unremarkable. No cardiomegaly. Vasculature: Tortuous/ectatic aorta. Bones/joints: Unremarkable. XR/XR chest 1V portable [id number] IMPRESSION: Possible small pleural effusions. Otherwise, no acute process evident.
--- NOTE | 2019-10-21 11:38 | P.PN_ITS ---
Subjective Subjective: Interval history: This morning patient was examined, nurse at bedside, patient has no complaints this morning, but at times has confusing answers, at times does not make sense, has no chest pain complaints, no shortness of breath complaints, no cough complaints, he does seem to mumble a lot, does not make sense at times, is alert oriented x2, has no significant complaints this morning Overnight patient had febrile episodes, T-max 100.3, sinus tachycardia, according to nurses has been having episodes of confusion, getting up out of bed, no agitation, no falls Vitals/I&O/Wt Last Vital Signs Temp 100.1 F H 10/21/19 11:05 Pulse 111 H 10/21/19 11:00 Resp 23 H 10/21/19 11:00 BP 142/103 10/21/19 11:00 Pulse Ox 99 10/21/19 09:30 10/20/19 10/21/19 10/21/19 22:59 06:59 14:59 Intake Total 831.25 / 1200.00 1240 / 2440.00 600 / 600 Output Total 750 / 750 1000 / 1750 Balance 81.25 / 450.00 240 / 690.00 600 / 600 Physical Exam Const: COMMON NORMALS: no apparent distress HENMT: COMMON NORMALS: normocephalic HEAD & SCALP: normocephalic Neck/C-Spine: COMMON NORMALS: no JVD Resp: COMMON NORMALS: normal respiratory effort, no retractions, no use of accessory muscles and clear to auscultation bilaterally AUSCULTATION: clear to auscultation bilaterally Cardio: COMMON NORMALS: no JVD, regular rate, regular rhythm, S1 normal heart sound and S2 normal heart sound RATE: regular rate RHYTHM: regular rhythm HEART SOUNDS: S1 normal and S2 normal GI: COMMON NORMALS: normal to inspection, nondistended, normoactive bowel s ounds, soft to palpation, non-tender, no hepatosplenomegaly, no masses and no bruits PALPATION: Yes soft and Yes no hepatosplenomegaly Extremity: COMMON NORMALS: normal capillary refill, no clubbing, cyanosis or edema, no calf tenderness and no pedal edema Urinary Catheter Management^: Parisi Latex: Cath Placed During This Visit: yes Reason for Continuing Indwelling Catheter: Accurate Measurement of Urinary Output in Critically Ill Patients Urinary Catheter Date of Insertion: 10/19/19 Urinary Catheter Time of Insertion: 00:35 Data : 10/21/19 03:21 10/21/19 03:21 Micro: Microbiology 10/19/19 13:30 Urine Culture - Preliminary Urine,Clean Catch A&P Assessment and plan (1) Alcoholic hepatitis: Continue to follow LFTs closely. Avoid alcohol. Appears to be improving Status: Acute Code(s): K70.10 - Alcoholic hepatitis without ascites (2) Alcohol abuse: -still undergoing alcohol withdrawal -Likely has some component of Wernicke's encephalopathy -Continue thiamine folate -CIWA protocol has been initiated and this will continue. -Continue IV fluids Repeat ammonia levels ammonia level Status: Acute Code(s): F10.10 - Alcohol abuse, uncomplicated (3) Multiple rib fractures: -Multiple right nondisplaced rib fractures. Probable subtle buckle fractures of the anterior left 4th and 5th ribs Status: Acute Qualifiers: Encounter type: initial encounter Fracture type: closed Laterality: right Qualified Code(s): S22.41XA - Multiple fractures of ribs, right side, initial encounter for closed fracture Code(s): S22.49XA - Multiple fractures of ribs, unspecified side, initial encounter for closed fracture (4) Recurrent falls: Secondary to alcohol Status: Acute Code(s): R29.6 - Repeated falls (5) Rib fracture: Status: Acute Code(s): S22.39XA - Fracture of one rib, unspecified side, initial encounter for closed fracture (6) Fever: -T-max 100.3 -Patient's CT chest showed multiple groundglass opacities, has multiple rib fractures -Has a high risk of pneumonia Plan: -Obtain urine cultures, blood cultures, repeat chest x-ray, pro-Manish, CRP -We will also get an ultrasound of the abdomen to evaluate for SBP -Start the patient on broad-spectrum antibiotics vancomycin and Zosyn -Monitor clinical progress Status: Acute Code(s): R50.9 - Fever, unspecified Additional A&P Information History of hypertension. Currently on lisinopril Groundglass opacities right lung. Monitor for any respiratory symptoms History of reflux, start Protonix Full code DVT prophylaxis: SCDs because of recent falls, scalp hematoma Discharge planning to see. May need significant supportive care, referral to rehab, etc. 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
[2019-10-21 12:34] LABS: C Reactive Protein 59.1 mg/L (0.0-4.9)
[2019-10-21 12:57] LABS: Influenza A by IFA Negative (Negative); Influenza B by IFA Negative (Negative)
[2019-10-21 16:01] LABS: Procalcitonin 0.17 ng/mL (0-0.5)
[2019-10-21] MEDS: morphine 4 mg/mL SDV 1 mL 2 MG IVP (21:14)
[2019-10-22] VITALS (31 sets, daily range): BP systolic 113–171; BP diastolic 65–137; PULSE 90–118; RESP 13–29; TEMP 37.2–38.8; O2SAT 95–99
[2019-10-22] MEDS: labetalol 5 mg/mL SDV 20mL 10 MG IVP (01:26)
[2019-10-22] MEDS: piperacillin-tazobactam 3.375 GM in sodium chloride 0.9% (plus) 50 ML IV ×3 (01:30→18:05)
[2019-10-22 04:25] LABS: Basophils # 0.1 10^3/uL (0.0-0.1); Basophils % 0.9 %; Eosinophils # 0.1 10^3/uL (0.0-0.8); Eosinophils % 1.6 %; Hematocrit 41.7 % (42.0-52.0); Hemoglobin 13.3 g/dL (11.7-16.6); Lymphocytes # 1.3 10^3/uL (0.8-4.8); Lymphocytes % 17.5 %; Mean Corpuscular HGB Conc 31.9 g/dL (30.0-36.0); Mean Corpuscular Hemoglobin 31.1 pg (28.0-34.0); Mean Corpuscular Volume 97.7 fL (80-94); Mean Platelet Volume 9.6 fL (7.4-10.4); Monocytes # 0.8 10^3/uL (0.2-0.9); Monocytes % 10.5 %; Neutrophils # 5.3 10^3/uL (1.8-7.7); Neutrophils % 69.2 %; Nucleated Red Blood Cells % 0 %; Platelet Count 264 10^3/cmm (130-400); Red Blood Count 4.27 10^6/uL (4.1-5.3); Red Cell Distribution Width 13.1 % (12.1-15.1); White Blood Count 7.6 10^3/uL (4.0-10.0)
[2019-10-22] MEDS: LORazepam 2 mg/mL INJ 1 mL IVP ×3 (04:31→20:51)
[2019-10-22 04:46] LABS: Alanine Aminotransferase 46 U/L (0-41); Albumin Level 3.1 g/dL (3.5-5.2); Alkaline Phosphatase 66 IU/L (40-130); Anion Gap 19.8 (5-19); Aspartate Amino Transferase 75 U/L (0-40); Blood Urea Nitrogen 9 mg/dL (8-23); Calcium 9.1 mg/dL (8.5-10.5); Carbon Dioxide 18 mmol/L (22-29); Chloride 106 mmol/L (98-107); Creatinine Clr Calc Pharmacy 89.1903; Globulin 3.6 g/dL (1.3-4.6); Glomerular Filtration Rate 95.8 mL/min (90-130); Glucose 84 mg/dL (65-115); Magnesium 1.9 mg/dL (1.7-2.3); Osmolality Calculated 285 mOsm/kg (285-295); Phosphorus 3.3 mg/dL (2.5-4.5); Potassium 3.8 mmol/L (3.5-5.1); Sodium 140 mmol/L (136-145); Total Protein 6.7 g/dL (6.6-8.7)
--- NOTE | 2019-10-22 06:05 | PC.NURSE ---
Pt found chilling, temp checked and 101.8 axillary. Provider notified for medication orders.
[2019-10-22] MEDS: acetaminophen 325 mg Tablet 650 MG PO (06:18)
[2019-10-22 08:55] LABS: Erythrocyte Sedimentation Rate 54 mm/hr (0-10)
[2019-10-22 09:23] LABS: Procalcitonin 0.16 ng/mL (0-0.5)
[2019-10-22 09:34] LABS: C Reactive Protein 74.1 mg/L (0.0-4.9)
[2019-10-22] MEDS: pantoprazole DR 40 mg Tablet PO (12:33)
[2019-10-22] MEDS: folic acid 1 mg Tablet PO (12:33)
[2019-10-22] MEDS: lisinopril 10 mg Tablet PO (12:33)
[2019-10-22] MEDS: thiamine 100 mg Tablet PO (12:33)
[2019-10-22 12:34] LABS: Vancomycin Trough 13.6 ug/mL (10-15)
[2019-10-22] MEDS: multivitamin therapeutic Tablet 1 TAB PO (12:34)
[2019-10-22] MEDS: lactulose oral liq 20 gm/30 mL UDC PO (12:34)
--- NOTE | 2019-10-22 16:57 | PM.PN ---
Subjective Subjective: Interval history: Patient makes more sense this morning, does not understand why he is still here in the hospital, CIWA scores have been 5, denies fevers, although his T-max was 101.8, denies chills, no cough, no significant abdominal complaints, no diarrhea, denies drinking alcohol, denies seeing things are not there, denies hearing things that are not there Medications: Reviewed: Yes Vitals/I&O/Wt Last Vital Signs Temp 99 F 10/22/19 14:00 Pulse 100 10/22/19 16:30 Resp 25 H 10/22/19 16:30 BP 148/97 10/22/19 16:30 Pulse Ox 97 10/22/19 16:00 10/22/19 10/22/19 10/22/19 06:59 14:59 22:59 Intake Total 1172.5 / 2512.5 350 / 350 Output Total 950 / 1600 Balance 222.5 / 912.5 350 / 350 Physical Exam Const: COMMON NORMALS: no apparent distress and oriented x3 HENMT: COMMON NORMALS: normocephalic HEAD & SCALP: normocephalic Neck/C-Spine: COMMON NORMALS: no JVD Resp: COMMON NORMALS: normal respiratory effort, no retractions, no use of accessory muscles and clear to auscultation bilaterally AUSCULTATION: clear to auscultation bilaterally Cardio: COMMON NORMALS: no JVD, regular rate, regular rhythm, S1 normal heart sound and S2 normal heart sound RATE: regular rate RHYTHM: regular rhythm HEART SOUNDS: S1 normal and S2 normal GI: COMMON NORMALS: normal to inspection, nondistended, normoactive bowel sounds, soft to palpation, non-tender, no hepatosplenomegaly, no masses and no bruits PALPATION: Yes soft and Yes no hepatosplenomegaly Extremity: COMMON NORMALS: normal capillary refill, no clubbing, cyanosis or edema, no calf tenderness and no pedal edema Neuro: COMMON NORMALS: oriented x3 Psych: COMMON NORMALS: mental status grossly normal Urinary Catheter Management^: Parisi Latex: Cath Placed During This Visit: yes Reason for Continuing Indwelling Catheter: Accurate Measurement of Urinary Output in Critically Ill Patients Urinary Catheter Date of Insertion: 10/19/19 Urinary Catheter Time of Insertion: 00:35 Data : 10/22/19 03:15 10/22/19 03:15 Micro: Microbiology 10/21/19 11:48 Blood Culture - Preliminary Blood NEGATIVE TO DATE 10/21/19 11:43 Blood Culture - Preliminary Blood NEGATIVE TO DATE 10/21/19 12:15 Urine Culture - Preliminary Urine Catheterized 10/22/19 08:05 MRSA Culture - Final Nose 10/19/19 13:30 Urine Culture - Final Urine,Clean Catch A&P Assessment and plan (1) Alcoholic hepatitis: Continue to follow LFTs closely. Avoid alcohol. Appears to be improving Status: Acute Code(s): K70.10 - Alcoholic hepatitis without ascites (2) Alcohol abuse: -still undergoing alcohol withdrawal -Likely has some component of Wernicke's encephalopathy -Continue thiamine folate -CIWA protocol has been initiated and this will continue. -Continue IV fluids Repeat ammonia levels ammonia level Status: Acute Code(s): F10.10 - Alcohol abuse, uncomplicated (3) Multiple rib fractures: -Multiple right nondisplaced rib fractures. Probable subtle buckle fractures of the anterior left 4th and 5th ribs Status: Acute Qualifiers: Encounter type: initial encounter Fracture type: closed Laterality: right Qualified Code(s): S22.41XA - Multiple fractures of ribs, right side, initial encounter for closed fracture Code(s): S22.49XA - Multiple fractures of ribs, unspecified side, initial encounter for closed fracture (4) Recurrent falls: Secondary to alcohol Status: Acute Code(s): R29.6 - Repeated falls (5) Rib fracture: Status: Acute Code(s): S22.39XA - Fracture of one rib, unspecified side, initial encounter for closed fracture (6) Fever: -T-max 101.8 -So far no infectious source, blood sugar cultures unremarkable, urine cultures unremarkable, ultrasound negative for any ascitic fluid -Patient's CT chest showed multiple groundglass opacities, has multiple rib fractures -Has a high risk of pneumonia -Likely also patient is going through alcohol withdrawal, fevers related to alcohol withdrawal, delirium tremens - Plan: -Follow urine cultures and blood cultures -broad-spectrum antibiotics vancomycin and Zosyn -Monitor clinical progress Status: Acute Code(s): R50.9 - Fever, unspecified Additional A&P Information History of hypertension. Currently on lisinopril Groundglass opacities right lung. Monitor for any respiratory symptoms History of reflux, start Protonix Full code DVT prophylaxis: SCDs because of recent falls, scalp hematoma Discharge planning to see. May need significant supportive care, referral to rehab, etc. 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
[2019-10-22] MEDS: haloperidol inj 5 mg/mL INJ 1 mL 2 MG IM ×2 (18:04→22:03)
--- NOTE | 2019-10-22 20:54 | PC.NURSE ---
Patient unable to tell me current President, when asked what state patient stated [place] , patient unable to correctly tell me year born.
[2019-10-23] VITALS (20 sets, daily range): BP systolic 135–175; BP diastolic 83–137; PULSE 90–116; RESP 15–25; TEMP 36.6–36.7; O2SAT 97–98
[2019-10-23] MEDS: piperacillin-tazobactam 3.375 GM in sodium chloride 0.9% (plus) 50 ML IV ×2 (01:22→09:33)
[2019-10-23 04:11] LABS: Basophils % 0.4 %; Eosinophils # 0.1 10^3/uL (0.0-0.8); Eosinophils % 0.7 %; Hematocrit 38.9 % (42.0-52.0); Hemoglobin 12.6 g/dL (11.7-16.6); Lymphocytes # 1.1 10^3/uL (0.8-4.8); Lymphocytes % 14.8 %; Mean Corpuscular HGB Conc 32.4 g/dL (30.0-36.0); Mean Corpuscular Hemoglobin 31.9 pg (28.0-34.0); Mean Corpuscular Volume 98.5 fL (80-94); Mean Platelet Volume 9.4 fL (7.4-10.4); Monocytes # 0.8 10^3/uL (0.2-0.9); Monocytes % 10.5 %; Neutrophils # 5.2 10^3/uL (1.8-7.7); Neutrophils % 73.3 %; Nucleated Red Blood Cells % 0 %; Platelet Count 213 10^3/cmm (130-400); Red Blood Count 3.95 10^6/uL (4.1-5.3); White Blood Count 7.1 10^3/uL (4.0-10.0)
[2019-10-23 04:28] LABS: Alanine Aminotransferase 39 U/L (0-41); Albumin Level 3.1 g/dL (3.5-5.2); Alkaline Phosphatase 53 IU/L (40-130); Anion Gap 20.6 (5-19); Aspartate Amino Transferase 58 U/L (0-40); Blood Urea Nitrogen 8 mg/dL (8-23); Calcium 9.2 mg/dL (8.5-10.5); Carbon Dioxide 19 mmol/L (22-29); Chloride 103 mmol/L (98-107); Creatinine Clr Calc Pharmacy 89.1903; Globulin 3.5 g/dL (1.3-4.6); Glomerular Filtration Rate 111.8 mL/min (90-130); Glucose 88 mg/dL (65-115); Magnesium 1.9 mg/dL (1.7-2.3); Osmolality Calculated 283 mOsm/kg (285-295); Phosphorus 3.1 mg/dL (2.5-4.5); Potassium 3.6 mmol/L (3.5-5.1); Sodium 139 mmol/L (136-145); Total Bilirubin 0.7 mg/dL (0.15-1.2); Total Protein 6.6 g/dL (6.6-8.7)
[2019-10-23] MEDS: metoprolol tartrate 25 mg Tablet PO ×2 (07:38→17:45)
[2019-10-23] MEDS: folic acid 1 mg Tablet PO (09:16)
[2019-10-23] MEDS: pantoprazole DR 40 mg Tablet PO (09:16)
[2019-10-23] MEDS: thiamine 100 mg Tablet PO (09:16)
[2019-10-23] MEDS: multivitamin therapeutic Tablet 1 TAB PO (09:17)
[2019-10-23] MEDS: amlodipine 10 mg Tablet PO (09:17)
[2019-10-23] MEDS: lisinopril 10 mg Tablet PO (09:17)
--- NOTE | 2019-10-23 12:32 | PC.SOCIAL ---
IM follow up left on table along with links to performance data. Patient currently still confused and no family present. SS to review when patient more alert.
--- NOTE | 2019-10-23 12:36 | PC.SOCIAL ---
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
[2019-10-23] MEDS: lanolin oint 7 gm 1 APPLIC TOPICAL (14:19)
--- NOTE | 2019-10-23 14:42 | PC.CHAP ---
Pastoral Care Encounter/Spiritual Assessment Type of Contact [] Declined linen checker visit [] Patient/Family/Request visit [] Outpatient visit [] Follow-up visit [] Physician referral [] Code/Alert [] Routine visit [] Staff referral [] Actively dying [x] Patient sleeping [] Family support [] [] Out of room [] Palliative care [] [] Receiving care in room [] Pre-surgical visit [] Trauma [x] Long length of stay [x] ICU visit [] Other: Relational/Emotional Strength [] Patient feels connected with others/family/visitors/staff [] Distress [] Loneliness/isolation [] Abandonment Spirituality of Patient [] Person of Lizzie [] Attends Sikhism of their Lizzie [] Believes in Prayer [] Reads Bible or Protestant materials [] There are Spiritual issues to be addressed Irrigation Engineer Interventions [] Prayer [] Active listening [] Non-anxious presence [] Spiritual/emotional support [] Crisis/trauma care [] Spiritual counseling [] Bereavement support [] Provided bereavement packet [] Provided Bible/devotional materials [] Provided toy/stuffed animal, coloring book to patient or family member [] Provided Communion [] Anointing/[place] [] Salvation [] Completed spiritual assessment [] Other: Impact on Illness or Injury [] Angry [] Fearful [] Anxious [] Often cries [] Exhaustion [] Unable to work [] Unable to attend sikh [] Unable to walk/stand [] Unable to read [] Unable to drive [] Unable to eat/drink [] Unable to sleep [] Unable to be with family [] Patient intubated [] Other: Summary Patient was sleeping at the time of linen checker visit. Irrigation Engineer referred patient for follow up visit by karl linen checker. Visit attempted by Irrigation Engineer Gordon Cohen. Time spent with patient 3 minutes.
[2019-10-23] MEDS: haloperidol inj 5 mg/mL INJ 1 mL 2 MG IM (15:36)
--- NOTE | 2019-10-23 17:23 | PM.PN ---
Subjective Subjective: Interval history: This morning patient is in bed, alert oriented x1, states that there is nothing wrong with him, denies drinking alcohol, stated that he ate breakfast well, at times does not make sense, at times confabulates, has remained quite bedbound, according to nurses, he required a couple doses of Haldol due to agitation overnight, typically wanders out of bed Vitals/I&O/Wt Last Vital Signs Temp 97.8 F 10/23/19 07:00 Pulse 93 10/23/19 14:00 Resp 20 H 10/23/19 14:00 BP 137/95 10/23/19 14:00 Pulse Ox 97 10/23/19 14:00 10/23/19 10/23/19 10/23/19 06:59 14:59 22:59 Intake Total 300 / 1127.5 590 / 590 Output Total 1050 / 1050 1400 / 1400 Balance -750 / 77.5 -810 / -810 Physical Exam Const: COMMON NORMALS: no apparent distress HENMT: COMMON NORMALS: normocephalic HEAD & SCALP: normocephalic Neck/C-Spine: COMMON NORMALS: no JVD Resp: COMMON NORMALS: normal respiratory effort, no retractions, no use of accessory muscles and clear to auscultation bilaterally AUSCULTATION: clear to auscultation bilaterally Cardio: COMMON NORMALS: no JVD, regular rate, regular rhythm, S1 normal heart sound and S2 normal heart sound RATE: regular rate RHYTHM: regular rhythm HEART SOUNDS: S1 normal and S2 normal GI: COMMON NORMALS: normal to inspection, nondistended, normoactive bowel sounds, soft to palpation, non-tender, no hepatosplenomegaly, no masses and no bruits PALPATION: Yes soft and Yes no hepatosplenomegaly Extremity: COMMON NORMALS: normal capillary refill, no clubbing, cyanosis or edema, no calf tenderness and no pedal edema Psych: COMMON NORMALS: mental status grossly normal Urinary Catheter Management^: Parisi Latex: Cath Placed During This Visit: yes Reason for Continuing Indwelling Catheter: Accurate Measurement of Urinary Output in Critically Ill Patients Urinary Catheter Date of Insertion: 10/19/19 Urinary Catheter Time of Insertion: 00:35 Data : 10/23/19 03:24 10/23/19 03:24 Micro: Microbiology 03/14/20 12:15 Urine Culture - Final Urine Catheterized A&P Assessment and plan (1) Alcoholic hepatitis: Continue to follow LFTs closely. Avoid alcohol. Appears to be improving Status: Acute Code(s): K70.10 - Alcoholic hepatitis without ascites (2) Alcohol abuse: -Out of withdrawal -Likely has some component of Wernicke's encephalopathy -Continue thiamine folate Status: Acute Code(s): F10.10 - Alcohol abuse, uncomplicated (3) Multiple rib fractures: -Multiple right nondisplaced rib fractures. Probable subtle buckle fractures of the anterior left 4th and 5th ribs Status: Acute Qualifiers: Encounter type: initial encounter Fracture type: closed Laterality: right Qualified Code(s): S22.41XA - Multiple fractures of ribs, right side, initial encounter for closed fracture Code(s): S22.49XA - Multiple fractures of ribs, unspecified side, initial encounter for closed fracture (4) Recurrent falls: Secondary to alcohol Status: Acute Code(s): R29.6 - Repeated falls (5) Rib fracture: Status: Acute Code(s): S22.39XA - Fracture of one rib, unspecified side, initial encounter for closed fracture (6) Fever: -T-max 101.8 24 hours ago -So far no infectious source, blood sugar cultures unremarkable, urine cultures unremarkable, ultrasound negative for any ascitic fluid -Patient's CT chest showed multiple groundglass opacities, has multiple rib fractures -Has a high risk of pneumonia -Likely also patient is going through alcohol withdrawal, fevers related to alcohol withdrawal, delirium tremens - Plan: -Follow urine cultures and blood cultures -De-escalate to Levaquin -Monitor clinical progress Status: Acute Code(s): R50.9 - Fever, unspecified (7) Wernicke-Korsakoff syndrome (alcoholic): -Patient has a lot of symptoms associate with Wernicke-Korsakoff syndrome -Episodes of altered mentation, some abdominal aplasia, confabulates, quite unsteady on his feet, is having memory issues -Unfortunate there is no family members are involved in his care, will try to return to his sisters -Unfortunately placement will become a big issue, as patient is quite confused, has confabulation, is unsteady on his feet, is already saying that he wants to go home -Patient would be a good candidate for geriatric psych if he were to step, will discuss with case workers -We will continue to require monitoring 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 Currently on lisinopril Groundglass opacities right lung. Monitor for any respiratory symptoms History of reflux, start Protonix Full code DVT prophylaxis: SCDs because of recent falls, scalp hematoma Discharge planning to see. May need significant supportive care, referral to rehab, etc. 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
[2019-10-23] MEDS: lactulose oral liq 20 gm/30 mL UDC PO (23:44)
[2019-10-24] VITALS (7 sets, daily range): BP systolic 94–152; BP diastolic 60–92; PULSE 76–102; RESP 16–20; TEMP 36.4–37.3; O2SAT 95–98
[2019-10-24] MEDS: LORazepam 2 mg/mL INJ 1 mL IVP ×2 (04:04→23:56)
[2019-10-24 05:23] LABS: Basophils % 0.5 %; Eosinophils # 0.1 10^3/uL (0.0-0.8); Eosinophils % 1.4 %; Hematocrit 45.1 % (42.0-52.0); Hemoglobin 15.2 g/dL (11.7-16.6); Lymphocytes # 1.3 10^3/uL (0.8-4.8); Lymphocytes % 17.8 %; Mean Corpuscular HGB Conc 33.7 g/dL (30.0-36.0); Mean Corpuscular Volume 94.9 fL (80-94); Mean Platelet Volume 9.2 fL (7.4-10.4); Monocytes # 0.9 10^3/uL (0.2-0.9); Monocytes % 12.6 %; Neutrophils # 4.9 10^3/uL (1.8-7.7); Neutrophils % 67.4 %; Nucleated Red Blood Cells % 0 %; Platelet Count 272 10^3/cmm (130-400); Red Blood Count 4.75 10^6/uL (4.1-5.3); Red Cell Distribution Width 12.8 % (12.1-15.1); White Blood Count 7.3 10^3/uL (4.0-10.0)
[2019-10-24] MEDS: levoFLOXacin 750 mg Tablet PO (05:26)
[2019-10-24] MEDS: lactulose oral liq 20 gm/30 mL UDC PO ×3 (05:26→17:37)
[2019-10-24 05:39] LABS: Alanine Aminotransferase 45 U/L (0-41); Albumin Level 3.6 g/dL (3.5-5.2); Alkaline Phosphatase 60 IU/L (40-130); Anion Gap 21.5 (5-19); Aspartate Amino Transferase 59 U/L (0-40); Blood Urea Nitrogen 6 mg/dL (8-23); Calcium 9.8 mg/dL (8.5-10.5); Carbon Dioxide 19 mmol/L (22-29); Chloride 94 mmol/L (98-107); Creatinine Clr Calc Pharmacy 89.1903; Globulin 4.2 g/dL (1.3-4.6); Glomerular Filtration Rate 133.6 mL/min (90-130); Glucose 101 mg/dL (65-115); Osmolality Calculated 268 mOsm/kg (285-295); Phosphorus 2.8 mg/dL (2.5-4.5); Potassium 3.5 mmol/L (3.5-5.1); Sodium 131 mmol/L (136-145); Total Bilirubin 0.8 mg/dL (0.15-1.2); Total Protein 7.8 g/dL (6.6-8.7)
[2019-10-24] MEDS: metoprolol tartrate 25 mg Tablet PO ×2 (08:31→17:37)
[2019-10-24] MEDS: folic acid 1 mg Tablet PO (08:32)
[2019-10-24] MEDS: multivitamin therapeutic Tablet 1 TAB PO (08:32)
[2019-10-24] MEDS: amlodipine 10 mg Tablet PO (08:32)
[2019-10-24] MEDS: pantoprazole DR 40 mg Tablet PO (08:32)
[2019-10-24] MEDS: lisinopril 10 mg Tablet PO (08:32)
[2019-10-24] MEDS: acetaminophen 325 mg Tablet 650 MG PO (08:41)
[2019-10-24] MEDS: thiamine 100 mg Tablet PO (08:41)
--- NOTE | 2019-10-24 14:34 | P.PN_ITS ---
Subjective Subjective: Interval history: This morning patient is alert to person, knows the president is Devin Hernandez, states that he has 1 sister in town, states that he wants to go home, states that he does not drink alcohol, denies fevers, denies pain, does not want to go to the prison, patient has not gotten out of bed, remains afebrile, normotensive, Vitals/I&O/Wt Last Vital Signs Temp 98.3 F 10/24/19 10:57 Pulse 80 10/24/19 10:57 Resp 16 10/24/19 10:57 BP 94/60 10/24/19 10:57 Pulse Ox 98 10/24/19 10:57 10/23/19 10/24/19 10/24/19 22:59 06:59 14:59 Intake Total 200 / 790 120 / 910 620 / 620 Output Total 2 / 2 Balance 200 / -610 120 / -490 618 / 618 Physical Exam Const: COMMON NORMALS: no apparent distress and alert HENMT: COMMON NORMALS: normocephalic HEAD & SCALP: normocephalic Neck/C-Spine: COMMON NORMALS: no JVD Resp: COMMON NORMALS: normal respiratory effort, no retractions, no use of accessory muscles and clear to auscultation bilaterally AUSCULTATION: clear to auscultation bilaterally Cardio: COMMON NORMALS: no JVD, regular rate, regular rhythm, S1 normal heart sound and S2 normal heart sound RATE: regular rate RHYTHM: regular rhythm HEART SOUNDS: S1 normal and S2 normal GI: COMMON NORMALS: normal to inspection, nondistended, normoactive bowel sounds, soft to palpation, non-tender, no hepatosplenomegaly, no masses and no bruits PALPATION: Yes soft and Yes no hepatosplenomegaly Extremity: COMMON NORMALS: normal capillary refill, no clubbing, cyanosis or edema, no calf tenderness and no pedal edema Neuro: SENSORIUM/ORIENTATION: Yes alert Urinary Catheter Management^: Parisi Latex: Cath Placed During This Visit: yes, but has since been removed by the nurse Reason for Continuing Indwelling Catheter: Accurate Measurement of Urinary Output in Critically Ill Patients Urinary Catheter Date of Insertion: 10/19/19 Urinary Catheter Time of Insertion: 00:35 Date Urinary Catheter Removed: 10/23/19 Time Urinary Catheter Discontinued: 12:30 Data : 10/24/19 04:50 10/24/19 04:50 A&P Assessment and plan (1) Alcoholic hepatitis: Continue to follow LFTs closely. Avoid alcohol. Appears to be improving Status: Acute Code(s): K70.10 - Alcoholic hepatitis without ascites (2) Alcohol abuse: -Out of withdrawal -Likely has some component of Wernicke's encephalopathy -Continue thiamine folate Status: Acute Code(s): F10.10 - Alcohol abuse, uncomplicated (3) Multiple rib fractures: -Multiple right nondisplaced rib fractures. Probable subtle buckle fractures of the anterior left 4th and 5th ribs Status: Acute Qualifiers: Encounter type: initial encounter Fracture type: closed Laterality: right Qualified Code(s): S22.41XA - Multiple fractures of ribs, right side, initial encounter for closed fracture Code(s): S22.49XA - Multiple fractures of ribs, unspecified side, initial encounter for closed fracture (4) Recurrent falls: Secondary to alcohol Status: Acute Code(s): R29.6 - Repeated falls (5) Rib fracture: Status: Acute Code(s): S22.39XA - Fracture of one rib, unspecified side, initial encounter for closed fracture (6) Fever: -Afebrile for the last 48 hours -So far no infectious source, blood sugar cultures unremarkable, urine cultures unremarkable, ultrasound negative for any ascitic fluid -Patient's CT chest showed multiple groundglass opacities, has multiple rib fractures -Has a high risk of pneumonia -Likely also patient is going through alcohol withdrawal, fevers related to alcohol withdrawal, delirium tremens - Plan: -Follow urine cultures and blood cultures, so far unremarkable -De-escalate to Levaquin -Monitor clinical progress Status: Acute Code(s): R50.9 - Fever, unspecified (7) Wernicke-Korsakoff syndrome (alcoholic): -Patient has a lot of symptoms associate with Wernicke-Korsakoff syndrome -Episodes of altered mentation, some abdominal aplasia, confabulates, quite unsteady on his feet, is having memory issues -Unfortunate there is no family members are involved in his care, will try to return to his sisters -Unfortunately placement will become a big issue, as patient is quite confused, has confabulation, is unsteady on his feet, is already saying that he wants to go home -Patient would be a good candidate for geriatric psych if he were to step, will discuss with case workers -We will continue to require monitoring 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 May need significant supportive care, referral to rehab, etc. 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
--- NOTE | 2019-10-24 15:44 | P.HP_ITS ---
Providers/Chief Complaint Admitting Physician: Latricia Nair MD Chief Complaint: FALL / RIGHT SIDE RIB PAIN HPI NPU History of Present Illness Chief complaint: Take me to the front door so I can go home. History of present illness:Canelo Lara is a 69 year old male who was brought to the emergency room Mental health history: Social history: Legal history: Past medical history: Mental Status Exam: Appearance: hygiene is fair; no gross neurological deficits., gait is unremarkable; AIMS=0 Speech: Speech is of normal rate and rhythm and easily understood. Thought processes: Thought processes are abstract. Judgment is not adequate for safety. Associations: intact Psychotic processes: There is no indication of guarding or paranoia. There is no attention to the internal stimuli. Auditory and visual hallucinations are denied. Judgment: Insight is fair. Problem solving skills are adequate for safety. Orientation: The patient is oriented to person, place time and situation. Memory: no deficits noted in immediate, intermediate, or remote spheres. Attention: The patient is alert and interpersonally engaged. Language: Verbalizations are coherent. Fund of knowledge: Fund of knowledge is adequate. Affect/Mood: Affect is consistent with a depressed mood. ([]) suicidal ideation Affective range iappropriate. Psychosis: perception unimpaired except through cognitive distortion; reality testing intact. Diagnoses: Assessment: Treatment plan: Due to the psychiatric conditions and treatment listed in the Assessment and Plan - the patient requires continued hospitalization. Will provide a safe and therapeutic environment for patient.. Will continue inpatient treatment to allow for medication adjustment and monitoring. Will continue q15 min safety checks. Will continue current medications and monitor for medication side effects. Monitor patient's mood, sleep, appetite, and behavior closely. Encourage patient to participate in individual and group therapeutic sessions on the shrestha. Estimated length of stay 5 days The expected benefits and potential side effects of patient's psychiatric medications were discussed with the patient. The patient understands and consen ts to treatment.CRITERIA FOR DISCHARGE: stable on medications and no longer an im Meds NPU Home Medications Medication Instructions Recorded Confirmed Type lisinopril 10 mg PO DAILY 08/17/19 10/18/19 History meclizine 25 mg PO Q6H PRN 08/17/19 10/18/19 History pantoprazole 40 mg PO DAILY 08/17/19 10/18/19 History hydroxyzine HCl See Rx Instructions .ROUTE .COMPLEX 10/18/19 10/18/19 History Allergies Allergy/AdvReac Type Severity Reaction Status Date / Time No Known Allergies Allergy Verified 08/17/19 13:30 PFSH NPU PFSH: Medical History (Updated 10/23/19 @ 17:27 by Chadd Marquez MD) Alcoholism Hematoma Hepatic encephalopathy Liver cirrhosis Recurrent falls Surgical History (Updated 10/18/19 @ 22:30 by Latricia Nair MD) H/O inguinal hernia repair Family History (Updated 10/18/19 @ 22:31 by Latricia Nair MD) Denies family history of Clotting disorder Dementia Chronic kidney disease (CKD) Cancer Social History (Updated 10/18/19 @ 22:32 by Latricia Nair MD) Smoking and tobacco status: former smoker Alcohol intake: current Lives independently: Yes Household members: other Details: He lives alone Housing: House Marital status: Single Vitals/I&O/Wt Last Vital Signs Temp 98.3 F 10/24/19 10:57 Pulse 80 10/24/19 10:57 Resp 16 10/24/19 10:57 BP 94/60 10/24/19 10:57 Pulse Ox 98 10/24/19 10:57 10/24/19 10/24/19 10/24/19 06:59 14:59 22:59 Intake Total 120 / 910 620 / 620 Output Total 2 / 2 Balance 120 / -490 618 / 618 Physical Exam Urinary Catheter Management^: Parisi Latex: Cath Placed During This Visit: yes, but has since been removed by the nurse Reason for Continuing Indwelling Catheter: Accurate Measurement of Urinary Output in Critically Ill Patients Urinary Catheter Date of Insertion: 10/19/19 Urinary Catheter Time of Insertion: 00:35 Date Urinary Catheter Removed: 10/23/19 Time Urinary Catheter Discontinued: 12:30 Data NPU : 10/24/19 04:50 10/24/19 04:50 Coding Level of Care Code Acute Glove Turner And Former Automatic for Nata Ugarte
--- NOTE | 2019-10-24 15:55 | PM.PSYCN ---
Providers/Reason for Consult Consulting Physican/Specialty*: Alok Sharp MD Reason for Consult*: Assess patient for decisional capacity. Attending Physician: Chadd Marquez MD Psych Consult HPI History of Present Illness Chief complaint: Take me to the front door so I can go home. History of present illness:Canelo Lara is a 69 year old male who was brought to the emergency room after being discovered on the floor of his home unable to care for himself. As best as can be discerned, the patient has been having general difficulty with self care for some time. a conversation with his niece revealed that the family has been trying to get him to move somewhere where he has more support for the past year. He is stubborn, resistant, and refuses to move. He was brought to the emergency room 2 months ago with mental status changes and was diagnosed with acute hepatic failure, hepatic encephalopathy, and acute renal failure. He had fallen down and a hematoma on his neck. He was eventually transferred to [facility]. He was treated and returned to his home. For unclear reasons, the patient seems to be quite accident. Apparently he fell down during his home and was in a position where he was not able to get off the floor. He fractured some ribs. The reason for his falling is unknown. When he was not answering his phone, family requested a wellness check and he was discovered laying on his floor unable to care for himself. He was transferred to the emergency room. Emergency room physician note on presentation reads: HPI Narrative: 69 yo male presents to ED with complaints of R rib pain. He said he fell outside walking around [facility] when he tripped and fell 1 month ago. He was sent to and treated at [facility]. The patient has old abrasions to his bilateral knees. The patient doesn't remember falling today although he has fresh abrasions to his face (abrasion to forehead and conjunctival hemorrhage to R eye) and he has erythema to R lower chest no crepitus. The family states patient was found between his bed and a (wall) heater, at which point the patient states he crawled around on old plaster floors to try to get to bed . He said his (R) ribs hurt and have been for a couple of weeks . He said he was fishing about a week ago and a fish hook caught his stomach (he has erythema and tenderness on his abdomen and it is tender to touch) The patient's neck is sore to touch and movement (no step-offs of exam to C-spine). C-color was placed. When the patient was asked if he drank alcohol, he said not really and the family stated the patient does not drink a lot but will drink some. The patient has altered mental status. He was eventually placed in the medical unit on the suspicion that he was having alcohol withdrawal and has been treated with the CIWA protocol since. on presentation today, the patient is lying in his bed. He stares at the ceiling and does not move when this physician enters the room. He states that he shouldn't be allowed to go home. He states that they are doing nothing for him here. He says that it is 2020. He then refuses any further interaction. Much of his verbalizations is mumbling and difficult to understand. nursing staff was engaged. He reports that he has been largely confused and unresponsive for most of the day. his record was reviewed. his CIWA scores were trending down consistently over. Of 3 days. Last night, they had reached a level one. However over the next 4 hours, the CIWA level increased to 14 and he was given 2 mg of lorazepam IV for his level of agitation.it is unclear why his level of alcohol withdrawal would have increased so suddenly and significantly. It is also noted that there was a coincident decrease in his sodium leveland a serum osmolality. Mental health history: noen reported by pateient of family. No record or psychiatric care in chart. Social history:his niece, Jazmyne Thorpe, was contacted by this physician. She reported that her experience, is quite capable of taking care of himself when he is doing well. Takes care of his own checkbook and financial matters. However, his level of function varies wildly. She says the family is concerned that he spent a great deal of his time going from our department in town drinking all day long. This is felt to be a response to his degree of loneliness as he lives and has no one to talk to. That he goes to bars so that he will have someone to talk to. They've tried to get to more social setting and he refuses. His niece brings in a couple times per week she says that he would be able to manage by himself though with significantly more difficulty. Past medical history: Laboratory Tests 10/21/19 10/22/19 10/23/19 03:21 03:15 03:24 Sodium 144 140 139 GFR Calculation Calculated Osmolality 285 283 L 10/24/19 04:50 Sodium 131 L GFR Calculation 133.6 H Calculated Osmolality 268 L Mental Status Exam: the patient is encountered when in bed staring at the ceiling. He shows a mild fine tremor but is otherwise displaying significant stiffness. He does display some lateral gaze to try to engage this physician but otherwise does not move.he appears to be in some discomfort. Speech: Speech is characterized by much mumbling and indistinct talk. Thought processes: unable to be assessed due to his poor communication. Psychotic processes: There is no indication of guarding or paranoia. There is no attention to the internal stimuli. Auditory and visual hallucinations are denied. Judgment: unable to be assessed due to his poor communication. Orientation: The patient is oriented to person, and situation only. Memory: unable to be assessed due to his poor communication. Attention: The patient is alert and interpersonally engaged. Fund of knowledge: unable to be assessed due to his poor communication. Affect/Mood: Affect is irritable with a and stated mood. Psychosis: perception impaired through cognitive limitation and illogical thinking; reality testing impaired Meds Current Medications: Current Medications Generic Name Dose Route Start Last Admin Trade Name Freq PRN Reason Stop Dose Admin Acetaminophen 650 mg 10/22/19 06:06 10/24/19 08:41 Tylenol PO 650 mg Q4H PRN Administration MILD PAIN OR INCR EASE TEMP Amlodipine Besylat e 10 mg 10/23/19 09:00 10/24/19 08:32 Norvasc PO 10 mg DAILY CHRISTOPHER Administration Folic Acid 1 mg 10/19/19 09:00 10/24/19 08:32 Folic Acid PO 1 mg DAILY CHRISTOPHER Administration Haloperidol Lactat e 2 mg 10/19/19 00:24 10/23/19 15:36 Haldol Inj IM 2 mg Q4H PRN Administration AGITATION Lactulose 20 gm 10/22/19 07:30 10/24/19 11:31 Constulose PO 20 gm Q6H CHRISTOPHER Administration Lanolin 1 applic 10/23/19 14:07 10/23/19 14:19 Lanolin Oint TOPICAL 1 appful PRN PRN Administration DRYNESS Levofloxacin 750 mg 10/24/19 06:00 10/24/19 05:26 Levaquin PO 750 mg DAILY@0600 CHRISTOPHER Administration Protocol Lisinopril 10 mg 10/19/19 09:00 10/24/19 08:32 Prinivil PO 10 mg DAILY CHRISTOPHER Administration Lorazepam 2 mg 10/23/19 22:45 10/24/19 04:04 Ativan IVP 2 mg PRN PRN Administration WITHDRAWAL Protocol Metoprolol Tartrat e 25 mg 10/23/19 07:20 10/24/19 08:31 Lopressor PO 25 mg BID CHRISTOPHER Administration Multivitamins Ther apeutic 1 tab 10/19/19 09:00 10/24/19 08:32 Multivitamin Tab PO 1 tab DAILY CHRISTOPHER Administration Pantoprazole Sodiu m 40 mg 10/19/19 09:00 10/24/19 08:32 Protonix PO 40 mg DAILY CHRISTOPHER Administration Thiamine Mononitra te 100 mg 10/19/19 09:00 10/24/19 08:41 Vitamin B-1 PO 100 mg DAILY CHRISTOPHER Administration PFSH NPU PFSH: Medical History (Updated 10/24/19 @ 16:08 by Alok Sharp MD) Alcoholism Hematoma Hepatic encephalopathy Liver cirrhosis Recurrent falls Surgical History (Updated 10/18/19 @ 22:30 by Latricia Nair MD) H/O inguinal hernia repair Family History (Updated 10/18/19 @ 22:31 by Latricia Nair MD) Denies family history of Clotting disorder Dementia Chronic kidney disease (CKD) Cancer Social History (Updated 10/18/19 @ 22:32 by Latricia Nair MD) Smoking and tobacco status: former smoker Alcohol intake: current Lives independently: Yes Household members: other Details: He lives alone Housing: House Marital status: Single Vitals/I&O/Wt Last Vital Signs Temp 98.3 F 10/24/19 10:57 Pulse 80 10/24/19 10:57 Resp 16 10/24/19 10:57 BP 94/60 10/24/19 10:57 Pulse Ox 98 10/24/19 10:57 10/24/19 10/24/19 10/24/19 06:59 14:59 22:59 Intake Total 120 / 910 620 / 620 Output Total 2 / 2 Balance 120 / -490 618 / 618 Physical Exam Urinary Catheter Management^: Parisi Latex: Cath Placed During This Visit: yes, but has since been removed by the nurse Reason for Continuing Indwelling Catheter: Accurate Measurement of Urinary Output in Critically Ill Patients Urinary Catheter Date of Insertion: 10/19/19 Urinary Catheter Time of Insertion: 00:35 Date Urinary Catheter Removed: 10/23/19 Time Urinary Catheter Discontinued: 12:30 A&P Assessment and plan (1) Delirium: patient's cognition at the time of interview is severely impaired given that his baseline prior to hospitalization placed him in a much higher level of function. At this time the pateint isn't capable of exercising safe judgment. However, the reason for that state remains unclear. A history of extensive alcohol use and his age place him at risk for any of several dementing processes. However, the waxing and waning pattern described in current records and by staff would be more consistent with delirium. That could come from any of a number of sources. While the medical effects of alcohol withdraw were resolving, the cognitive effects of alcohol dependence often take longer and produce a vairable course. The sudden decrease in sodium and osmolarity might also produce mental status changes. Recommendations: Further medical stabilization should produce significant improvements in cognition even if he is unable to reach the self sufficient baseline described by family by time of discharge. A dementia assessment would provide a good picture of his cognition at this point in life. However, testing for that assessment is unavailable in this facility. Even if transferred to another facility, the assessment would not be valid until he was medically stable for several weeks. There still remains the question of whether have decisional capacity at the time he becomes stable. According to family, at baseline, he is capable of that level of self care. I will continue to follow this patient a provide guidance. Status: Acute Code(s): R41.0 - Disorientation, unspecified Attestations NPU Medical Necessity Statement*: PAtient will remain in the hospital until the physician of record determines he is safe for discharge. Time Spent in Patient Care: Greater than 35 minutes Coding Level of Care Code Acute Hereditary Cancer Program Coordinator for Nata Ugarte Diagnoses Delirium R41.0
[2019-10-24] MEDS: sodium chloride 0.9% 1,000 ML 75 ML IV (18:12)
[2019-10-25] VITALS (7 sets, daily range): BP systolic 88–137; BP diastolic 60–89; PULSE 88–100; RESP 18–20; TEMP 36.4–37.1; O2SAT 95–98
[2019-10-25] MEDS: lactulose oral liq 20 gm/30 mL UDC PO ×5 (00:27→23:30)
--- NOTE | 2019-10-25 02:43 | PC.NURSE ---
Around 0000 tonight patient started getting agitated. He was trying to get out of bed to go see the eye doctor . Patient asked for a beer. I tried redirecting the patient and told him he was in the hospital and it was late at night and he would see the doctor in the morning. I did a CIWA assessment on patient and he scored a 10 and received Ativan which helped patient to calm down and rest.
[2019-10-25] MEDS: levoFLOXacin 750 mg Tablet PO (05:35)
[2019-10-25] MEDS: sodium chloride 0.9% 1,000 ML 75 ML IV ×2 (05:35→18:09)
[2019-10-25 06:53] LABS: Basophils # 0.1 10^3/uL (0.0-0.1); Basophils % 0.9 %; Eosinophils # 0.2 10^3/uL (0.0-0.8); Eosinophils % 2.9 %; Hematocrit 42.4 % (42.0-52.0); Hemoglobin 13.2 g/dL (11.7-16.6); Lymphocytes # 1.3 10^3/uL (0.8-4.8); Lymphocytes % 23.5 %; Mean Corpuscular HGB Conc 31.1 g/dL (30.0-36.0); Mean Corpuscular Hemoglobin 31.6 pg (28.0-34.0); Mean Corpuscular Volume 101.4 fL (80-94); Mean Platelet Volume 9.4 fL (7.4-10.4); Monocytes # 0.8 10^3/uL (0.2-0.9); Monocytes % 13.8 %; Neutrophils # 3.2 10^3/uL (1.8-7.7); Neutrophils % 58.5 %; Nucleated Red Blood Cells % 0 %; Platelet Count 275 10^3/cmm (130-400); Red Blood Count 4.18 10^6/uL (4.1-5.3); Red Cell Distribution Width 13.2 % (12.1-15.1); White Blood Count 5.5 10^3/uL (4.0-10.0)
[2019-10-25 07:14] LABS: Alanine Aminotransferase 31 U/L (0-41); Albumin Level 2.6 g/dL (3.5-5.2); Alkaline Phosphatase 50 IU/L (40-130); Anion Gap 15.4 (5-19); Aspartate Amino Transferase 35 U/L (0-40); Blood Urea Nitrogen 12 mg/dL (8-23); Calcium 9.3 mg/dL (8.5-10.5); Carbon Dioxide 23 mmol/L (22-29); Chloride 106 mmol/L (98-107); Creatinine Clr Calc Pharmacy 89.1903; Globulin 4.2 g/dL (1.3-4.6); Glomerular Filtration Rate 95.8 mL/min (90-130); Glucose 104 mg/dL (65-115); Osmolality Calculated 288 mOsm/kg (285-295); Potassium 3.4 mmol/L (3.5-5.1); Sodium 141 mmol/L (136-145); Total Bilirubin 0.4 mg/dL (0.15-1.2); Total Protein 6.8 g/dL (6.6-8.7)
[2019-10-25] MEDS: thiamine 100 mg Tablet PO (10:00)
[2019-10-25] MEDS: multivitamin therapeutic Tablet 1 TAB PO (10:01)
--- NOTE | 2019-10-25 10:02 | PM.CONSULT ---
Providers/Reason For Consult Consulting Physican/Specialty*: psychiatry Reason for Consult*: Decisional Capacity Attending Physician: Chadd Marquez MD History of Present Illness History of Present Illness Subjective: : They are sending me up to that other hospital today. Which hospital? [facility] Why is that? I don't know Pt complains of diaarhea. He wants to go home. However, he is unable to come up with a clear plan as to how that owuld happen. Objective: Laboratory Tests 10/24/19 10/25/19 04:50 06:40 Sodium 131 L 141 Potassium 3.5 3.4 L Creatinine 0.6 L 0.8 GFR Calculation 133.6 H 95.8 Mental Status Exam: pt laying in bed in supine position in a mild degree of physical discomfort. HE denie dthat this was due to his rib fracture. Appearance: mildly tremulous Speech: Speech is in short phrases and sometimes difficult to understand as he mumbles. Thought processes: Thought processes are concrete. Judgment is not adequate for safety. Psychotic processes: There is no indication of guarding or paranoia. There is no attention to the internal stimuli. Auditory and visual hallucinations are denied. Judgment: Insight and Problem solving skills were not able to be assessed Orientation: The patient is oriented to person, place and situation. Memory: no deficits noted in immediate, intermediate, or remote spheres. Attention: The patient is alert and interpersonally engaged. Language: Verbalizations are coherent. Fund of knowledge: Fund of knowledge is not assessed constricted appropriate. Psychosis: perception impaired through illogical thought Assessment: 1. Delirium - at this time the patient does not have decisional capacity and cannot make reasonable medical decisions. 2. Dementia - Assessment regarding the presence of dementia continues unchanged from original consultation. PLAN: Will continue to follow with you. Meds/Allergies Home Medications and Allergies Home Medications Medication Instructions Recorded Confirmed Type lisinopril 10 mg PO DAILY 08/17/19 10/18/19 History meclizine 25 mg PO Q6H PRN 08/17/19 10/18/19 History pantoprazole 40 mg PO DAILY 08/17/19 10/18/19 History hydroxyzine HCl See Rx Instructions .ROUTE .COMPLEX 10/18/19 10/18/19 History Allergies Allergy/AdvReac Type Severity Reaction Status Date / Time No Known Allergies Allergy Verified 08/17/19 13:30 Current Medications Current Medications Generic Name Dose Route Start Last Admin Trade Name Freq PRN Reason Stop Dose Admin Acetaminophen 650 mg 10/22/19 06:06 10/24/19 08:41 Tylenol PO 650 mg Q4H PRN Administration MILD PAIN OR INCREASE TEMP Amlodipine Besylate 10 mg 10/23/19 09:00 10/24/19 08:32 Norvasc PO 10 mg DAILY CHRISTOPHER Administration Folic Acid 1 mg 10/19/19 09:00 10/24/19 08:32 Folic Acid PO 1 mg DAILY CHRISTOPHER Administration Haloperidol Lactate 2 mg 10/19/19 00:24 10/23/19 15:36 Haldol Inj IM 2 mg Q4H PRN Administration AGITATION Sodium Chloride 1,000 mls @ 75 mls/hr 10/24/19 17:00 10/25/19 05:35 Sodium Chloride 0.9% IV 75 mls/hr .[id number] CHRISTOPHER Administration Lactulose 20 gm 10/22/19 07:30 10/25/19 05:35 Constulose PO 20 gm Q6H CHRISTOPHER Administration Lanolin 1 applic 10/23/19 14:07 10/23/19 14:19 Lanolin Oint TOPICAL 1 appful PRN PRN Administration DRYNESS Levofloxacin 750 mg 10/24/19 06:00 10/25/19 05:35 Levaquin PO 750 mg DAILY@0600 CHRISTOPHER Administration Protocol Lisinopril 10 mg 10/19/19 09:00 10/24/19 08:32 Prinivil PO 10 mg DAILY CHRISTOPHER Administration Lorazepam 2 mg 10/23/19 22:45 10/24/19 23:56 Ativan IVP 2 mg PRN PRN Administration WITHDRAWAL Protocol Metoprolol Tartrate 25 mg 10/23/19 07:20 10/24/19 17:37 Lopressor PO 25 mg BID CHRISTOPHER Administration Multivitamins Therapeutic 1 tab 10/19/19 09:00 10/24/19 08:32 Multivitamin Tab PO 1 tab DAILY CHRISTOPHER Administration Pantoprazole Sodium 40 mg 10/19/19 09:00 10/24/19 08:32 Protonix PO 40 mg DAILY CHRISTOPHER Administration Thiamine Mononitrate 100 mg 10/19/19 09:00 10/24/19 08:41 Vitamin B-1 PO 100 mg DAILY CHRISTOPHER Administration PFSH Acute PFSH: Medical History (Updated 10/24/19 @ 16:08 by Alok Sharp MD) Alcoholism Hematoma Hepatic encephalopathy Liver cirrhosis Recurrent falls Surgical History (Updated 10/18/19 @ 22:30 by Latricia Nair MD) H/O inguinal hernia repair Family History (Updated 10/18/19 @ 22:31 by Latricia Nair MD) Denies family history of Clotting disorder Dementia Chronic kidney disease (CKD) Cancer Social History (Updated 10/18/19 @ 22:32 by Latricia Nair MD) Smoking and tobacco status: former smoker Alcohol intake: current Lives independently: Yes Household members: other Details: He lives alone Housing: House Marital status: Single Vitals/I&O/Wt Last Vital Signs Temp 98.5 F 10/25/19 07:23 Pulse 91 10/25/19 07:23 Resp 18 10/25/19 07:23 BP 96/66 10/25/19 07:23 Pulse Ox 95 10/25/19 07:23 10/24/19 10/25/19 10/25/19 22:59 06:59 14:59 Intake Total 300 / 920 853.75 / 1773.75 Output Total 5 / 7 Balance 295 / 913 853.75 / 1766.75 Physical Exam Urinary Catheter Management^: Parisi Latex: Cath Placed During This Visit: yes, but has since been removed by the nurse Reason for Continuing Indwelling Catheter: Accurate Measurement of Urinary Output in Critically Ill Patients Urinary Catheter Date of Insertion: 10/19/19 Urinary Catheter Time of Insertion: 00:35 Date Urinary Catheter Removed: 10/23/19 Time Urinary Catheter Discontinued: 12:30 Coding Level of Care Code Acute Fish And Wildlife Biologist for Nata Ugarte
--- NOTE | 2019-10-25 10:33 | PC.SOCIAL ---
IMM Update Pg 2 of IMM given and explained to patient. Copy provided to patient.
[2019-10-25] MEDS: folic acid 1 mg Tablet PO (11:02)
[2019-10-25] MEDS: pantoprazole DR 40 mg Tablet PO (11:02)
--- NOTE | 2019-10-25 11:53 | P.PN_ITS ---
Subjective Subjective: Interval history: This morning patient is quite irritable, he swears multiple times, states that he wants to [facility], states that he wants to go home, leave on a [place], states that his sister will help him, states that he can get up out of bed, does not need our help, states that he can stool by himself, does not need an adult diaper, he is wondering why he is still here Patient is alert oriented to person, not to time, not to place, does know the president, does know the year, but at times states that there are people outside are talking about him, his biggest complaint is why is he still here Vitals/I&O/Wt Last Vital Signs Temp 98.4 F 10/25/19 11:04 Pulse 95 10/25/19 11:04 Resp 20 H 10/25/19 11:04 BP 133/89 10/25/19 11:04 Pulse Ox 97 10/25/19 11:04 10/24/19 10/25/19 10/25/19 22:59 06:59 14:59 Intake Total 300 / 920 853.75 / 1773.75 240 / 240 Output Total 5 / 7 Balance 295 / 913 853.75 / 1766.75 240 / 240 Physical Exam Const: COMMON NORMALS: no apparent distress HENMT: COMMON NORMALS: normocephalic HEAD & SCALP: normocephalic Neck/C-Spine: COMMON NORMALS: no JVD Resp: COMMON NORMALS: normal respiratory effort, no retractions, no use of accessory muscles and clear to auscultation bilaterally AUSCULTATION: clear to auscultation bilaterally Cardio: COMMON NORMALS: no JVD, regular rate, regular rhythm, S1 normal heart sound and S2 normal heart sound RATE: regular rate RHYTHM: regular rhythm HEART SOUNDS: S1 normal and S2 normal GI: COMMON NORMALS: normal to inspection, nondistended, normoactive bowel sounds, soft to palpation, non-tender, no hepatosplenomegaly, no masses and no bruits PALPATION: Yes soft and Yes no hepatosplenomegaly Extremity: COMMON NORMALS: normal capillary refill, no clubbing, cyanosis or edema, no calf tenderness and no pedal edema Urinary Catheter Management^: Parisi Latex: Cath Placed During This Visit: yes, but has since been removed by the nurse Reason for Continuing Indwelling Catheter: Accurate Measurement of Urinary Output in Critically Ill Patients Urinary Catheter Date of Insertion: 10/19/19 Urinary Catheter Time of Insertion: 00:35 Date Urinary Catheter Removed: 10/23/19 Time Urinary Catheter Discontinued: 12:30 Data : 10/25/19 06:40 10/25/19 06:40 A&P Assessment and plan (1) Alcoholic hepatitis: Continue to follow LFTs closely. Avoid alcohol. Appears to be improving Status: Acute Code(s): K70.10 - Alcoholic hepatitis without ascites (2) Alcohol abuse: -Out of withdrawal -Likely has Wernicke's Korsakoff syndrome -Continue thiamine folate Status: Acute Code(s): F10.10 - Alcohol abuse, uncomplicated (3) Multiple rib fractures: -Multiple right nondisplaced rib fractures. Probable subtle buckle fractures of the anterior left 4th and 5th ribs Status: Acute Qualifiers: Encounter type: initial encounter Fracture type: closed Laterality: right Qualified Code(s): S22.41XA - Multiple fractures of ribs, right side, initial encounter for closed fracture Code(s): S22.49XA - Multiple fractures of ribs, unspecified side, initial encounter for closed fracture (4) Recurrent falls: Secondary to alcohol Secondary to Wernicke's encephalopathy and Korsakoff syndrome Patient does not want help, very unsteady on his feet, high risk of falls, high risk of trauma, has already had left neck trauma in August required surgical evacuation of hematoma Status: Acute Code(s): R29.6 - Repeated falls (5) Rib fracture: Status: Acute Code(s): S22.39XA - Fracture of one rib, unspecified side, initial encounter for closed fracture (6) Fever: -Afebrile for the last 72 hours -So far no infectious source, blood sugar cultures unremarkable, urine cultures unremarkable, ultrasound negative for any ascitic fluid -Patient's CT chest showed multiple groundglass opacities, has multiple rib fractures -Has a high risk of pneumonia -Likely also patient is going through alcohol withdrawal, fevers related to alcohol withdrawal, delirium tremens - Plan: -Blood cultures and urine cultures have been unremarkable -Stop Levaquin -Monitor clinical progress Status: Acute Code(s): R50.9 - Fever, unspecified (7) Wernicke-Korsakoff syndrome (alcoholic): -Patient has a lot of symptoms associate with Wernicke-Korsakoff syndrome -Episodes of altered mentation, some abdominal aplasia, confabulates, quite unsteady on his feet, is having memory issues -Unfortunate there is no family members are involved in his care, will try to return to his sisters -Unfortunately placement will become a big issue, as patient is quite confused, has confabulation, is unsteady on his feet, is already saying that he wants to go home -Patient would be a good candidate for geriatric psych if he were to step, will discuss with case workers -I have started high-dose thiamine treatments today -Is getting folate, B12, multivitamins 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 May need significant supportive care, referral to rehab, etc. 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
[2019-10-26 03:53] VITALS: BP 142/92; PULSE 94; RESP 24; TEMP 36.8; O2SAT 97
[2019-10-26] MEDS: lactulose oral liq 20 gm/30 mL UDC PO (05:29)
[2019-10-26 05:33] LABS: Basophils # 0.1 10^3/uL (0.0-0.1); Basophils % 0.9 %; Eosinophils # 0.1 10^3/uL (0.0-0.8); Eosinophils % 2.5 %; Hematocrit 44.2 % (42.0-52.0); Hemoglobin 14.3 g/dL (11.7-16.6); Lymphocytes # 1.5 10^3/uL (0.8-4.8); Lymphocytes % 26.8 %; Mean Corpuscular HGB Conc 32.4 g/dL (30.0-36.0); Mean Corpuscular Hemoglobin 31.4 pg (28.0-34.0); Mean Corpuscular Volume 96.9 fL (80-94); Mean Platelet Volume 10.3 fL (7.4-10.4); Monocytes # 0.7 10^3/uL (0.2-0.9); Monocytes % 12.1 %; Neutrophils # 3.2 10^3/uL (1.8-7.7); Neutrophils % 57.3 %; Nucleated Red Blood Cells % 0 %; Platelet Count 338 10^3/cmm (130-400); Red Blood Count 4.56 10^6/uL (4.1-5.3); Red Cell Distribution Width 13.1 % (12.1-15.1); White Blood Count 5.6 10^3/uL (4.0-10.0)
--- NOTE | 2019-10-26 05:36 | PC.NURSE ---
SHIFT SUMMARY Patient is here with AMS and fall with rib fxs. Patient is on CIWA and has scored 3s all night and is now resting with eyes closed. Has not needed any ativan through the night. Patient is pleasantly confused and has been in a good mood through the night. Has been incontinent of bowel and bladder and has had about 5 loose stools.
[2019-10-26 05:46] LABS: Alanine Aminotransferase 32 U/L (0-41); Albumin Level 3.4 g/dL (3.5-5.2); Alkaline Phosphatase 57 IU/L (40-130); Anion Gap 19.3 (5-19); Aspartate Amino Transferase 37 U/L (0-40); Blood Urea Nitrogen 10 mg/dL (8-23); Calcium 9.5 mg/dL (8.5-10.5); Carbon Dioxide 21 mmol/L (22-29); Chloride 105 mmol/L (98-107); Creatinine Clr Calc Pharmacy 89.1903; Globulin 4.2 g/dL (1.3-4.6); Glomerular Filtration Rate 111.8 mL/min (90-130); Glucose 88 mg/dL (65-115); Osmolality Calculated 289 mOsm/kg (285-295); Potassium 3.3 mmol/L (3.5-5.1); Sodium 142 mmol/L (136-145); Total Bilirubin 0.4 mg/dL (0.15-1.2); Total Protein 7.6 g/dL (6.6-8.7)
[2019-10-26 08:00] VITALS: BP 137/88; PULSE 106; RESP 18; TEMP 36.5; O2SAT 98
[2019-10-26] MEDS: cyanocobalamin 1,000 mcg Tablet 1000 MCG PO (08:10)
[2019-10-26] MEDS: multivitamin therapeutic Tablet 1 TAB PO (08:10)
[2019-10-26] MEDS: folic acid 1 mg Tablet PO (08:11)
[2019-10-26] MEDS: pantoprazole DR 40 mg Tablet PO (08:11)
[2019-10-26] MEDS: sodium chloride 0.9% 1,000 ML 75 ML IV (08:12)
--- NOTE | 2019-10-26 10:25 | P.PN_ITS ---
Subjective NPU Subjective: Interval history: just let me pain my Bill then I can go home. however, the [place] He later states that he is living in a house near his little sister. He cannot say with houses. He cannot say how he would get there. He cannot remember his sister's name. He says the he has no problems ambulating. He had to be prompted that he was in [place]. yes, I drink a little. Patient states that he drinks sometimes but not too much. Even so, he is going to stop drinking because his friends told him that he should. He would not elaborate. Mental Status Exam MSE Comments: Mental Status Exam: patient is in mild physical distress. Partially interpersonally engaged. There is no eye contact. He is unsteady on his feet and requires a walker to ambulate. However he does not analysis. Appearance: hygiene is fair; no gross neurological deficits., gait is unremarkable; AIMS=0 Speech: Speech is of normal rate and rhythm and easily understood. however he speaks only in short phrases. He gives no verbal discourse. He is not conversational. Thought processes: Thought processes are marginally logical as his starting premises are inaccurate. Judgment is not adequate for safety. Psychotic processes: There is no indication of guarding or paranoia. There is no attention to the internal stimuli. Auditory and visual hallucinations are denied. Judgment: Insight is poor. Problem solving skills are not adequate for safety. Orientation: The patient is oriented to person, vaguely to place, time and situation only in the sense that he knows he is in the hospital. Memory: he did not remember that he was living in [place]. He could not tell me how he got to [place]. He could not tell me how long he has been here. Attention: The patient is alert but only marginally interpersonally engaged. Language: Verbalizations are coherent. Fund of knowledge: Fund of knowledge is poor Affect/Mood: Affect is irritable and angry with unstated mood. denied suicidal ideation Affective range is ppropriate. Psychosis: perception is significantly impaired by his limited cognitive abilities.. Cognition: Patient Appearance: Appropriate Ability to Follow Directions: Fair Patient Orientation (long list): Person and Place Comprehension Ability: Moderate Impairment Thought Process: Appropriate Affect: Affect Description: Appropriate Behavior: Patient Behavior: Cooperative Speech Pattern: Clear, Inappropriate and Rambling Vitals/I&O/Wt Last Vital Signs Temp 97.7 F 10/26/19 08:00 Pulse 106 H 10/26/19 08:00 Resp 18 10/26/19 08:00 BP 137/88 10/26/19 08:00 Pulse Ox 98 10/26/19 08:00 10/25/19 10/26/19 10/26/19 22:59 06:59 14:59 Intake Total 1302.5 / 1542.5 240 / 1782.5 1000 / 1000 Balance 1302.5 / 1542.5 240 / 1782.5 1000 / 1000 Physical Exam Urinary Catheter Management^: Parisi Latex: Cath Placed During This Visit: yes, but has since been removed by the nurse Reason for Continuing Indwelling Catheter: Accurate Measurement of Urinary Output in Critically Ill Patients Urinary Catheter Date of Insertion: 10/19/19 Urinary Catheter Time of Insertion: 00:35 Date Urinary Catheter Removed: 10/23/19 Time Urinary Catheter Discontinued: 12:30 Data NPU : 10/26/19 04:08 10/26/19 04:08 Micro: Microbiology 10/25/19 15:40 C.difficile Toxin B Gene (PCR) - Final Stool Microbiology 10/25/19 15:40 Stool C.difficile Toxin B Gene (PCR) - Final A&P Assessment and plan (1) Delirium: patient's cognition is significantly impaired. He has been delirious now for several days. His thought processes are improving but he continues to have difficulty with basic problem solving. In addition, there are memory and cognitive impairments that would be consistent with a more baseline dementia. It is unclear whether this is due to his extensive alcohol use or another dementing process. Recommendations: if allowed to leave, the patient would be an imminent risk to self or others. He does not have the cognitive ability to remain safe and make reasonable medical decisions. He does not have the cognitive capacity at this time to understand his medical decisions. Diagnostically, he appears to be laboring under a resolving delirium as his medical status clears. evidence of this is the waxing and waning of his cognitive capacities and recent disorientation and deficit in sensorium. This could likely take several days to return to baseline. But in addition to his disordered thought processes, there appears to be an additional level of dementia that impairs his memory, and problem-solving skills. at minimum, if he were allowed to return home, it is most likely that he would return to his life threatening alcohol use. Status: Acute Code(s): R41.0 - Disorientation, unspecified Attestations NPU Medical Necessity Statement*: patient to remain in the hospital another 5-6 nightsfor further observation under a 96 hour involuntary commitment. 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
[2019-10-26 12:00] VITALS: BP 140/93; PULSE 93; RESP 18; TEMP 36.8; O2SAT 99
--- NOTE | 2019-10-26 13:34 | PC.OT ---
OT TREATMENT ATTEMPTED. PATIENT REPORTS THAT NO, I'M TOO TIRED RIGHT NOW. HE STATES THAT HE HAS BEEN ON THE ROAD TO [place] SINCE 6 A.M.
--- NOTE | 2019-10-26 15:04 | P.PN_ITS ---
Subjective Subjective: Interval history: This morning patient is having episodes of confusion, denies any pain, no fevers, no chills, no nausea, no vomiting I was able to speak to patient's sister, who states that patient was originally up at [facility] in early August, as he sustained a significant left neck abscess that required incision and drainage, of hematoma. In addition he was diagnosed with severe Wernicke's and felt encephalopathy there, he according to sister improved with thiamine, B12, folate. Patient's sister states that she brought him home, took care of him, fed him, ensure that he took his medications. Patient's sister states that as soon as he was able to walk, he was at the bar, he was drinking, and back to his old ways of drinking alcohol. Patient's sister states that he has been drinking alcohol since he has been 14 years old, is not uncommon for him to go through a 12 pack of beers. But now has been drinking hard liquor. Patient's sister states that there is not much she can do for him, she is already done as much as she could, he he lives at her rental property, and it is typically his friends at enable his drinking. Medications: Reviewed: Yes Vitals/I&O/Wt Last Vital Signs Temp 98.3 F 10/26/19 12:00 Pulse 93 10/26/19 12:00 Resp 18 10/26/19 12:00 BP 140/93 10/26/19 12:00 Pulse Ox 99 10/26/19 12:00 10/26/19 10/26/19 10/26/19 06:59 14:59 22:59 Intake Total 240 / 1782.5 1647.5 / 1647.5 Balance 240 / 1782.5 1647.5 / 1647.5 Physical Exam Const: COMMON NORMALS: no apparent distress and alert HENMT: COMMON NORMALS: normocephalic HEAD & SCALP: normocephalic Neck/C-Spine: COMMON NORMALS: no JVD Resp: COMMON NORMALS: normal respiratory effort, no retractions, no use of accessory muscles and clear to auscultation bilaterally AUSCULTATION: clear to auscultation bilaterally Cardio: COMMON NORMALS: no JVD, regular rate, regular rhythm, S1 normal heart sound and S2 normal heart sound RATE: regular rate RHYTHM: regular rhythm HEART SOUNDS: S1 normal and S2 normal GI: COMMON NORMALS: normal to inspection, nondistended, normoactive bowel sounds, soft to palpation, non-tender, no hepatosplenomegaly, no masses and no bruits PALPATION: Yes soft and Yes no hepatosplenomegaly Extremity: COMMON NORMALS: normal capillary refill, no clubbing, cyanosis or edema, no calf tenderness and no pedal edema Neuro: SENSORIUM/ORIENTATION: Yes alert Urinary Catheter Management^: Parisi Latex: Cath Placed During This Visit: yes, but has since been removed by the nurse Reason for Continuing Indwelling Catheter: Accurate Measurement of Urinary Outp ut in Critically Ill Patients Urinary Catheter Date of Insertion: 10/19/19 Urinary Catheter Time of Insertion: 00:35 Date Urinary Catheter Removed: 10/23/19 Time Urinary Catheter Discontinued: 12:30 Data : 10/26/19 04:08 10/26/19 04:08 Micro: Microbiology 10/21/19 11:48 Blood Culture - Final Blood NO GROWTH AFTER 5 DAYS 10/21/19 11:43 Blood Culture - Final Blood NO GROWTH AFTER 5 DAYS 10/25/19 15:40 C.difficile Toxin B Gene (PCR) - Final Stool A&P Assessment and plan (1) Alcoholic hepatitis: Continue to follow LFTs closely. Avoid alcohol. Appears to be improving Status: Acute Code(s): K70.10 - Alcoholic hepatitis without ascites (2) Alcohol abuse: -Out of withdrawal -Likely has Wernicke's Korsakoff syndrome -I have started intramuscular thiamine high-dose, folic acid, B12 Status: Acute Code(s): F10.10 - Alcohol abuse, uncomplicated (3) Multiple rib fractures: -Multiple right nondisplaced rib fractures. Probable subtle buckle fractures of the anterior left 4th and 5th ribs Status: Acute Qualifiers: Encounter type: initial encounter Fracture type: closed Laterality: right Qualified Code(s): S22.41XA - Multiple fractures of ribs, right side, initial encounter for closed fracture Code(s): S22.49XA - Multiple fractures of ribs, unspecified side, initial encounter for closed fracture (4) Recurrent falls: Secondary to alcohol Secondary to Wernicke's encephalopathy and Korsakoff syndrome Patient does not want help, very unsteady on his feet, high risk of falls, high risk of trauma, has already had left neck trauma in August required surgical evacuation of hematoma Status: Acute Code(s): R29.6 - Repeated falls (5) Rib fracture: Status: Acute Code(s): S22.39XA - Fracture of one rib, unspecified side, initial encounter for closed fracture (6) Fever: -Afebrile for the last 72 hours -So far no infectious source, blood sugar cultures unremarkable, urine cultures unremarkable, ultrasound negative for any ascitic fluid -Patient's CT chest showed multiple groundglass opacities, has multiple rib fractures -Has a high risk of pneumonia -Likely also patient is going through alcohol withdrawal, fevers related to alcohol withdrawal, delirium tremens - Plan: -Blood cultures and urine cultures have been unremarkable -Antibiotics have been stopped -Monitor clinical progress Status: Acute Code(s): R50.9 - Fever, unspecified (7) Wernicke-Korsakoff syndrome (alcoholic): -Patient has a lot of symptoms associated with Wernicke-Korsakoff syndrome and dementia -Episodes of altered mentation, some abdominal aplasia, confabulates, quite unsteady on his feet, is having memory issues -Records from [facility] shows diagnosis of encephalopathy secondary to Wernicke's encephalopathy and dementia, treatment with thiamine -Unfortunate there is no family members are involved in his care, will try to return to his sisters -Unfortunately placement will become a big issue, as patient is quite confused, has confabulation, is unsteady on his feet, is already saying that he wants to go home -Patient would be a good candidate for geriatric psych if he were to step, will discuss with case workers -I have started high-dose thiamine treatments today -Is getting folate, B12, multivitamins 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 (8) Acute liver failure: -Records from [facility] shows that he was diagnosed with acute liver failure, DF score 43, but GH 8 Status: Acute Code(s): K72.00 - Acute and subacute hepatic failure without coma Additional A&P Information Patient today needs aggressive PT OT, will have psychiatry come by and see the patient, discharge planning to home versus fpc facility, with versus home health care In his feet, has episodes of confusion, confabulation, but wants to go home, does not want to go to the shelter, this is a very difficult situation, I spoke to patient's sister, there is not much more she can do, this is a di fficult situation Full code DVT prophylaxis: SCDs because of recent falls, scalp hematoma Discharge planning to see. May need significant supportive care, referral to rehab, etc. 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
[2019-10-26 16:00] VITALS: BP 136/79; PULSE 96; RESP 17; TEMP 36.7; O2SAT 96
[2019-10-26 20:00] VITALS: BP 134/88; PULSE 91; RESP 18; TEMP 36.7; O2SAT 96
[2019-10-26 23:40] VITALS: BP 130/80; PULSE 89; RESP 18; TEMP 36.7; O2SAT 94
[2019-10-27] MEDS: lactulose oral liq 20 gm/30 mL UDC PO (01:06)
[2019-10-27] MEDS: acetaminophen 325 mg Tablet 650 MG PO ×3 (01:06→17:08)
[2019-10-27 04:00] VITALS: BP 134/84; PULSE 75; RESP 18; TEMP 36.6; O2SAT 95
[2019-10-27 06:06] LABS: Basophils % 0.7 %; Eosinophils # 0.2 10^3/uL (0.0-0.8); Eosinophils % 3.7 %; Hematocrit 38.1 % (42.0-52.0); Hemoglobin 12.4 g/dL (11.7-16.6); Lymphocytes # 1.6 10^3/uL (0.8-4.8); Lymphocytes % 26.5 %; Mean Corpuscular HGB Conc 32.5 g/dL (30.0-36.0); Mean Corpuscular Hemoglobin 31.7 pg (28.0-34.0); Mean Corpuscular Volume 97.4 fL (80-94); Mean Platelet Volume 9.8 fL (7.4-10.4); Monocytes # 0.8 10^3/uL (0.2-0.9); Monocytes % 13.2 %; Neutrophils # 3.4 10^3/uL (1.8-7.7); Neutrophils % 55.7 %; Nucleated Red Blood Cells % 0 %; Platelet Count 331 10^3/cmm (130-400); Red Blood Count 3.91 10^6/uL (4.1-5.3); Red Cell Distribution Width 13.2 % (12.1-15.1)
[2019-10-27 06:18] LABS: Alanine Aminotransferase 24 U/L (0-41); Albumin Level 2.9 g/dL (3.5-5.2); Alkaline Phosphatase 51 IU/L (40-130); Anion Gap 15.2 (5-19); Aspartate Amino Transferase 28 U/L (0-40); Blood Urea Nitrogen 7 mg/dL (8-23); Calcium 9.2 mg/dL (8.5-10.5); Carbon Dioxide 24 mmol/L (22-29); Chloride 104 mmol/L (98-107); Creatinine Clr Calc Pharmacy 89.1903; Globulin 3.5 g/dL (1.3-4.6); Glomerular Filtration Rate 111.8 mL/min (90-130); Glucose 95 mg/dL (65-115); Osmolality Calculated 286 mOsm/kg (285-295); Potassium 3.2 mmol/L (3.5-5.1); Sodium 140 mmol/L (136-145); Total Bilirubin 0.3 mg/dL (0.15-1.2); Total Protein 6.4 g/dL (6.6-8.7)
[2019-10-27 07:11] VITALS: BP 125/81; PULSE 76; RESP 16; TEMP 36.6; O2SAT 98
[2019-10-27] MEDS: amlodipine 10 mg Tablet PO (08:15)
[2019-10-27] MEDS: cyanocobalamin 1,000 mcg Tablet 1000 MCG PO (08:16)
[2019-10-27] MEDS: folic acid 1 mg Tablet PO (08:16)
[2019-10-27] MEDS: pantoprazole DR 40 mg Tablet PO (08:16)
[2019-10-27] MEDS: multivitamin therapeutic Tablet 1 TAB PO (08:17)
[2019-10-27 11:21] VITALS: BP 102/62; PULSE 87; RESP 16; TEMP 36.8; O2SAT 95
--- NOTE | 2019-10-27 11:30 | PC.SOCIAL ---
IMM Updated Page 2 of IMM updated and given to patient. Initialed, dated, and timed and placed back in chart.
--- NOTE | 2019-10-27 11:46 | P.PN_ITS ---
Subjective Subjective: Interval history: This morning patient was examined, he is alert oriented x2, he knows that he is in the hospital, he carries a conversation with me, no episodes of confusion, make sense this morning, states that he wants to go home, he actually walked the hallways with assistance, actually try to call his sister this morning, will recheck to Dr. Calix for assessment this morning I reviewed the records from [facility], it seems as if they were also having this issue, he was having Wernicke's encephalopathy and dementia symptoms, he eventually improved to a point that he was able to go home with his sister, who has been taking care of him, ensuring he has been taking his thiamine, B12 and the rest of his medications. But his sister stated that as s oon as he was able to walk, he was out the door and into a bar. Vitals/I&O/Wt Last Vital Signs Temp 98.2 F 10/27/19 11:21 Pulse 87 10/27/19 11:21 Resp 16 10/27/19 11:21 BP 102/62 10/27/19 11:21 Pulse Ox 95 10/27/19 11:21 10/26/19 10/27/19 10/27/19 22:59 06:59 14:59 Intake Total 480 / 2127.5 600 / 600 Output Total 210 / 210 50 / 260 Balance 270 / 1917.5 -50 / 1867.5 600 / 600 Physical Exam Const: COMMON NORMALS: no apparent distress and alert GENERAL APPEARANCE: cooperative ORIENTATION/CONSCIOUSNESS: Yes oriented to person and Yes orient ed to time HENMT: COMMON NORMALS: normocephalic HEAD & SCALP: normocephalic Neck/C-Spine: COMMON NORMALS: no JVD Resp: COMMON NORMALS: normal respiratory effort, no retractions, no use of accessory muscles and clear to auscultation bilaterally AUSCULTATION: clear to auscultation bilaterally Cardio: COMMON NORMALS: no JVD, regular rate, regular rhythm, S1 normal heart sound and S2 normal heart sound RATE: regular rate RHYTHM: regular rhythm HEART SOUNDS: S1 normal and S2 normal GI: COMMON NORMALS: normal to inspection, nondistended, normoactive bowel sounds, soft to palpation, non-tender, no hepatosplenomegaly, no masses and no bruits PALPATION: Yes soft and Yes no hepatosplenomegaly Extremity: COMMON NORMALS: normal capillary refill, no clubbing, cyanosis or edema, no calf tenderness and no pedal edema Neuro: SENSORIUM/ORIENTATION: Yes alert, Yes oriented to person and Yes oriented to time SPEECH: speech normal Psych: COMMON NORMALS: mental status grossly normal Urinary Catheter Management^: Parisi Latex: Cath Placed During This Visit: yes, but has since been removed by the nurse Reason for Continuing Indwelling Catheter: Accurate Measurement of Urinary Output in Critically Ill Patients Urinary Catheter Date of Insertion: 10/19/19 Urinary Catheter Time of Insertion: 00:35 Date Urinary Catheter Removed: 10/23/19 Time Urinary Catheter Discontinued: 12:30 Data : 10/27/19 04:42 10/27/19 04:42 Micro: Microbiology 10/21/19 11:48 Blood Culture - Final Blood NO GROWTH AFTER 5 DAYS 10/21/19 11:43 Blood Culture - Final Blood NO GROWTH AFTER 5 DAYS A&P Assessment and plan (1) Alcoholic hepatitis: Continue to follow LFTs closely. Avoid alcohol. Appears to be improving Status: Acute Code(s): K70.10 - Alcoholic hepatitis without ascites (2) Alcohol abuse: -Out of withdrawal -Likely has Wernicke's Korsakoff syndrome -I have started intramuscular thiamine high-dose, folic acid, B12 Status: Acute Code(s): F10.10 - Alcohol abuse, uncomplicated (3) Multiple rib fractures: -Multiple right nondisplaced rib fractures. Probable subtle buckle fractures of the anterior left 4th and 5th ribs Status: Acute Qualifiers: Encounter type: initial encounter Fracture type: closed Laterality: right Qualified Code(s): S22.41XA - Multiple fractures of ribs, right side, initial encounter for closed fracture Code(s): S22.49XA - Multiple fractures of ribs, unspecified side, initial encounter for closed fracture (4) Recurrent falls: Secondary to alcohol Secondary to Wernicke's encephalopathy and Korsakoff syndrome Patient does not want help, very unsteady on his feet, high risk of falls, high risk of trauma, has already had left neck trauma in August required surgical evacuation of hematoma Status: Acute Code(s): R29.6 - Repeated falls (5) Rib fracture: Status: Acute Code(s): S22.39XA - Fracture of one rib, unspecified side, initial encounter for closed fracture (6) Fever: -Afebrile for the last 72 hours -So far no infectious source, blood sugar cultures unremarkable, urine cultures unremarkable, ultrasound negative for any ascitic fluid -Patient's CT chest showed multiple groundglass opacities, has multiple rib fractures -Has a high risk of pneumonia -Likely also patient is going through alcohol withdrawal, fevers related to alcohol withdrawal, delirium tremens - Plan: -Blood cultures and urine cultures have been unremarkable -Antibiotics have been stopped -Monitor clinical progress Status: Acute Code(s): R50.9 - Fever, unspecified (7) Wernicke-Korsakoff syndrome (alcoholic): -Patient has a lot of symptoms associated with Wernicke-Korsakoff syndrome and dementia -Episodes of altered mentation, some abdominal aplasia, confabulates, quite unsteady on his feet, is having memory issues -Records from [facility] shows diagnosis of encephalopathy secondary to Wernicke's encephalopathy and dementia, treatment with thiamine -Unfortunate there is no family members are involved in his care, will try to return to his sisters -Unfortunately placement will become a big issue, as patient is quite confused, has confabulation, is unsteady on his feet, is already saying that he wants to go home -Patient would be a good candidate for geriatric psych if he were to step, will discuss with case workers -I have started high-dose thiamine treatments today -Is getting folate, B12, multivitamins 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 (8) Acute liver failure: -Records from [facility] shows that he was diagnosed with acute liver failure, DF score 43, but GH 8 Status: Acute Code(s): K72.00 - Acute and subacute hepatic failure without coma Additional A&P Information Patient today needs aggressive PT OT, will have psychiatry come by and see the patient, discharge planning to home versus intermediate facility, with versus home health care In his feet, has episodes of confusion, confabulation, but wants to go home, does not want to go to the long term, this is a very difficult situation, I spoke to patient's sister, there is not much more she can do, this is a difficult situation I was able to speak to patient's sister, who states that patient was originally up at [facility] in early August, as he sustained a significant left neck abscess that required incision and drainage, of hematoma. In addition he was diagnosed with severe Wernicke's and felt encephalopathy there, he according to sister improved with thiamine, B12, folate. Patient's sister states that she brought him home, took care of him, fed him, ensure that he took his medications. Patient's sister states that as soon as he was able to walk, he was at the bar, he was drinking, and back to his old ways of drinking alcohol. Patient's sister states that he has been drinking alcohol since he has been 14 years old, is not uncommon for him to go through a 12 pack of beers. But now has been drinking hard liquor. Patient's sister states that there is not much she can do for him, she is already done as much as she could, he he lives at her rental property, and it is typically his friends at enable his drinking. Full code DVT prophylaxis: SCDs because of recent falls, scalp hematoma Discharge planning to see. May need significant supportive care, referral to rehab, etc. on discharge Attestations Medical Necessity Statement*: Patient requires hospitalization for Wernicke's encephalopathy Coding Level of Care Code Acute Concert Singer for [facility] Javier Diagnoses Alcoholic hepatitis K70.10 Alcohol abuse F10.10 Multiple rib fractures S22.41XA Encounter type: initial encounter Fracture type: closed Laterality: right Recurrent falls R29.6 Rib fracture S22.39XA Fever R50.9 Wernicke-Korsakoff syndrome (alcoholic) F10.96 Acute liver failure K72.00
[2019-10-27 15:37] VITALS: BP 106/73; PULSE 80; RESP 16; TEMP 36.9; O2SAT 94
--- NOTE | 2019-10-27 15:37 | P.PN_ITS ---
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 HE cannot give me a mailing address but he owns several homes in the [place] area. HE never said he was in [place] but he refused to guess where he is living now. HE at times believes his suicide watch sitter is family member and other times, a medical secretary receptionist. HE cannot name the year. He does know that he is in a hospital though he tried to pay me so that he could leave. Mental Status Exam MSE Comments: Mental Status Exam: patient is in no physical distress. He is interpersonally engaged. There is no eye contact. He is steady on his feet but requires a walker to ambulate safely. Appearance: hygiene is good; no gross neurological deficits., gait is unremarkable; AIMS=0 Speech: Speech is of normal rate and rhythm and easily understood. He now elaborates on answers. He is goal directed though obtuse. Thought processes: Thought processes are linear. He is concrete in his thinking. Judgment is not adequate for safety. Psychotic processes: HE is not paranoid but he is guarded. At some level, he knows that his thinking is clouded and inaccurate and he attempts to obscure that fact by intentionally being vague. There is no indication of paranoia. There is no attention to the internal stimuli. Auditory and visual halluci nations are denied. Judgment: Insight is quite poor. Problem solving skills are not adequate for safety. Orientation: The patient is oriented to person, vaguely to place. As stated above, he could not name his location or the state that he was in. He could not name the year. Attention: The patient is alert and interpersonally engaged. Attention and focus are significantly improved over that of first visit. Language: Verbalizations are coherent. Fund of knowledge: Fund of knowledge is fair and he does preserve some procedural memory. Affect/Mood: Affect is irritable with euthymi mood. denied suicidal ideation Affective range is appropriate. Psychosis: perception is significantly impaired by his limited cognitive abilities and memory deficit.. Cognition: Patient Appearance: Appropriate Ability to Follow Directions: Fair Patient Orientation (long list): Person and Birthday Comprehension Ability: Moderate Impairment Thought Process: Confused Affect: Affect Description: Appropriate Behavior: Patient Behavior: Cooperative Speech Pattern: Clear, Inappropriate and Rambling Vitals/I&O/Wt Last Vital Signs Temp 98.2 F 10/27/19 11:21 Pulse 87 10/27/19 11:21 Resp 16 10/27/19 11:21 BP 102/62 10/27/19 11:21 Pulse Ox 95 10/27/19 11:21 10/27/19 10/27/19 10/27/19 06:59 14:59 22:59 Intake Total 720 / 720 Output Total 50 / 260 Balance -50 / 1867.5 720 / 720 Physical Exam Urinary Catheter Management^: Parisi Latex: Cath Placed During This Visit: yes, but has since been removed by the nurse Reason for Continuing Indwelling Catheter: Accurate Measurement of Urinary Output in Critically Ill Patients Urinary Catheter Date of Insertion: 10/19/19 Urinary Catheter Time of Insertion: 00:35 Date Urinary Catheter Removed: 10/23/19 Time Urinary Catheter Discontinued: 12:30 Data NPU : 10/27/19 04:42 10/27/19 04:42 Micro: Microbiology 10/21/19 11:48 Blood Culture - Final Blood NO GROWTH AFTER 5 DAYS 10/21/19 11:43 Blood Culture - Final Blood NO GROWTH AFTER 5 DAYS Microbiology 10/21/19 11:48 Blood Blood Culture - Final NO GROWTH AFTER 5 DAYS 10/21/19 11:43 Blood Blood Culture - Final NO GROWTH AFTER 5 DAYS A&P Assessment and plan (1) Delirium: The patient's mentation has improved significantly from yesterday. His sensorium is much more clear and that would be consistent with a resolving delirium. Unfortunately, the cognitive function that remains is consistent with a long standing dementia. The pattern of deficit is n ot diagnostic and as such, further testing will assisst management and prognosis. IT may improve slightly over the next few days but not to a signirficant degree. The fact that he is adept at avoiding direct questioning, giving approximate answers, and switchtracking the dialogue indicates that he has likely been trying to hide his deficits for some time. Recommendations: if allowed to leave, the patient would be an imminent risk to self or others. HE requires a better diagnostic assessment and social work assistance at finding a reasonable placement. Status: Acute Code(s): R41.0 - Disorientation, unspecified Attestations NPU Medical Necessity Statement*: The patient's length of stay will be determined by the physician of record. Coding Level of Care Code Acute Principal Quality Engineer for [facility] Diagnoses Delirium R41.0
[2019-10-27] MEDS: lanolin oint 7 gm 1 APPLIC TOPICAL (15:40)
[2019-10-27 20:00] VITALS: BP 122/77; PULSE 74; RESP 18; TEMP 36.5; O2SAT 99
[2019-10-28] VITALS: BP 108/73; PULSE 77; RESP 18; TEMP 37
[2019-10-28 04:00] VITALS: BP 108/70; PULSE 78; RESP 18; TEMP 36.6; O2SAT 97
[2019-10-28 07:09] VITALS: BP 115/77; PULSE 84; RESP 16; TEMP 36.7; O2SAT 96
[2019-10-28] MEDS: amlodipine 10 mg Tablet PO (10:15)
[2019-10-28] MEDS: folic acid 1 mg Tablet PO (10:15)
[2019-10-28] MEDS: pantoprazole DR 40 mg Tablet PO (10:15)
[2019-10-28] MEDS: lactulose oral liq 20 gm/30 mL UDC PO ×2 (10:15→19:00)
[2019-10-28] MEDS: cyanocobalamin 1,000 mcg Tablet 1000 MCG PO (10:15)
[2019-10-28] MEDS: multivitamin therapeutic Tablet 1 TAB PO (10:15)
[2019-10-28 11:57] VITALS: BP 123/79; PULSE 88; RESP 16; TEMP 36.8; O2SAT 96
--- NOTE | 2019-10-28 15:52 | P.PN_ITS ---
Subjective Subjective: Interval history: This morning patient is a bit more alert, more awake, states that he wants to go up to [place], he has a lot of friends up there, denies fevers, denies chills, no nausea, no vomiting Vitals/I&O/Wt Last Vital Signs Temp 98.3 F 10/28/19 11:57 Pulse 88 10/28/19 11:57 Resp 16 10/28/19 11:57 BP 123/79 10/28/19 11:57 Pulse Ox 96 10/28/19 11:57 10/28/19 10/28/19 10/28/19 06:59 14:59 22:59 Intake Total 480 / 480 Output Total 150 / 150 Balance -150 / 810 480 / 480 Physical Exam Const: COMMON NORMALS: no apparent distress and alert ORIENTATION/CONSCIOUSNESS: Yes oriented to person; not oriented to place and not oriented to time HENMT: COMMON NORMALS: normocephalic HEAD & SCALP: normocephalic Neck/C-Spine: COMMON NORMALS: no JVD Resp: COMMON NORMALS: normal respiratory effort, no retractions, no use of acc essory muscles and clear to auscultation bilaterally AUSCULTATION: clear to auscultation bilaterally Cardio: COMMON NORMALS: no JVD, regular rate, regular rhythm, S1 normal heart sound and S2 normal heart sound RATE: regular rate RHYTHM: regular rhythm HEART SOUNDS: S1 normal and S2 normal GI: COMMON NORMALS: normal to inspection, nondistended, normoactive bowel sounds, soft to palpation, non-tender, no hepatosplenomegaly, no masses and no bruits PALPATION: Yes soft and Yes no hepatosplenomegaly Extremity: COMMON NORMALS: normal capillary refill, no clubbing, cyanosis or edema, no calf tenderness and no pedal edema Neuro: SENSORIUM/ORIENTATION: Yes alert, Yes oriented to person, No oriented to place and No oriented to time Urinary Catheter Management^: Parisi Latex: Cath Placed During This Visit: yes, but has since been removed by the nurse Reason for Continuing Indwelling Catheter: Accurate Measurement of Urinary Output in Critically Ill Patients Urinary Catheter Date of Insertion: 10/19/19 Urinary Catheter Time of Insertion: 00:35 Date Urinary Catheter Removed: 10/23/19 Time Urinary Catheter Discontinued: 12:30 Data : 10/27/19 04:42 10/27/19 04:42 A&P Assessment and plan (1) Alcoholic hepatitis: Continue to follow LFTs closely. Avoid alcohol. Appears to be improving Status: Acute Code(s): K70.10 - Alcoholic hepatitis without ascites (2) Alcohol abuse: -Out of withdrawal -Likely has Wernicke's Korsakoff syndrome -I have started intramuscular thiamine high-dose, folic acid, B12 Status: Acute Code(s): F10.10 - Alcohol abuse, uncomplicated (3) Multiple rib fractures: -Multiple right nondisplaced rib fractures. Probable subtle buckle fractures of the anterior left 4th and 5th ribs Status: Acute Qualifiers: Encounter type: initial encounter Fracture type: closed Laterality: right Qualified Code(s): S22.41XA - Multiple fractures of ribs, right side, initial encounter for closed fracture Code(s): S22.49XA - Multiple fractures of ribs, unspecified side, initial encounter for closed fracture (4) Recurrent falls: Secondary to alcohol Secondary to Wernicke's encephalopathy and Korsakoff syndrome Patient does not want help, very unsteady on his feet, high risk of falls, high risk of trauma, has already had left neck trauma in August required surgical evacuation of hematoma Status: Acute Code(s): R29.6 - Repeated falls (5) Rib fracture: Status: Acute Code(s): S22.39XA - Fracture of one rib, unspecified side, initial encounter for closed fracture (6) Fever: -Afebrile for the last 72 hours -So far no infectious source, blood sugar cultures unremarkable, urine cultures unremarkable, ultrasound negative for any ascitic fluid -Patient's CT chest showed multiple groundglass opacities, has multiple rib fractures -Has a high risk of pneumonia -Likely also patient is going through alcohol withdrawal, fevers related to alcohol withdrawal, delirium tremens - Plan: -Blood cultures and urine cultures have been unremarkable -Antibiotics have been stopped -Monitor clinical progress Status: Acute Code(s): R50.9 - Fever, unspecified (7) Wernicke-Korsakoff syndrome (alcoholic): -Patient has a lot of symptoms associated with Wernicke-Korsakoff syndrome and dementia -Episodes of altered mentation, some abdominal aplasia, confabulates, quite unsteady on his feet, is having memory issues -Records from [facility] shows diagnosis of encephalopathy secondary to Wernicke's encephalopathy and dementia, treatment with thiamine -Unfortunate there is no family members are involved in his care, will try to return to his sisters -Unfortunately placement will become a big issue, as patient is quite confused, has confabulation, is unsteady on his feet, is already saying that he wants to go home -Patient would be a good candidate for geriatric psych if he were to step, will discuss with case workers -I have started high-dose thiamine treatments today -Is getting folate, B12, multivitamins 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 (8) Acute liver failure: -Records from [facility] shows that he was diagnosed with acute liver failure, DF score 43, but GH 8 Status: Acute Code(s): K72.00 - Acute and subacute hepatic failure without coma Additional A&P Information Patient has been seen by psychiatry, has a 96-hour hold, felt to be a danger to himself and others Patient today needs aggressive PT OT, will have psychiatry come by and see the patient, discharge planning to home versus fpc facility, with versus home health care has episodes of confusion, confabulation, but wants to go home, does not want to go to the longterm, this is a very difficult situation, I spoke to patient's sister, there is not much more she can do, this is a difficult situation I was able to speak to patient's sister, who states that patient was originally up at [facility] in early August, as he sustained a significant left neck abscess that required incision and drainage, of hematoma. In addition he was diagnosed with severe Wernicke's and felt encephalopathy there, he according to sister improved with thiamine, B12, folate. Patient's sister states that she brought him home, took care of him, fed him, ensure that he took his medications. Patient's sister states that as soon as he was able to walk, he was at the bar, he was drinking, and back to his old ways of drinking alcohol. Patient's sister states that he has been drinking alcohol since he has been 14 years old, is not uncommon for him to go through a 12 pack of beers. But now has been drinking hard liquor. Patient's sister states that there is not much she can do for him, she is already done as much as she could, he he lives at her rental property, and it is typically his friends at enable his drinking. Full code DVT prophylaxis: SCDs because of recent falls, scalp hematoma Discharge planning to see. May need significant supportive care, referral to rehab, etc. on discharge Attestations Medical Necessity Statement*: She requires hospitalization and due to Wernicke's encephalopathy, 96-hour hold Coding Level of Care Code Acute Wax Molder for [facility] Fwd Diagnoses Alcoholic hepatitis K70.10 Alcohol abuse F10.10 Multiple rib fractures S22.41XA Encounter type: initial encounter Fracture type: closed Laterality: right Recurrent falls R29.6 Rib fracture S22.39XA Fever R50.9 Wernicke-Korsakoff syndrome (alcoholic) F10.96 Acute liver failure K72.00
[2019-10-28 16:00] VITALS: BP 121/81; PULSE 96; RESP 16; TEMP 36.8; O2SAT 98
[2019-10-28 19:09] VITALS: BP 125/84; PULSE 84; RESP 18; TEMP 36.7; O2SAT 97
--- NOTE | 2019-10-28 23:10 | PC.NURSE ---
BM's Has had X2 loose diarhhea stools so far tonight. Gets stool all over self and bathroom floor and stool. Assisted with cleaning. Pt does not like to let nurses help him and tries to clean the bathroom by himself. Says he is not taking anymore of that medicine that makes me do this
[2019-10-29] VITALS: BP 115/77; PULSE 77; RESP 18; TEMP 36.9; O2SAT 92
[2019-10-29 04:00] VITALS: BP 122/79; PULSE 88; RESP 18; TEMP 36.7; O2SAT 97
[2019-10-29 07:25] VITALS: BP 127/84; PULSE 85; RESP 22; TEMP 36.8; O2SAT 97
[2019-10-29] MEDS: cyanocobalamin 1,000 mcg Tablet 1000 MCG PO (08:41)
[2019-10-29] MEDS: folic acid 1 mg Tablet PO (08:41)
[2019-10-29] MEDS: amlodipine 10 mg Tablet PO (08:41)
[2019-10-29] MEDS: multivitamin therapeutic Tablet 1 TAB PO (08:41)
[2019-10-29] MEDS: pantoprazole DR 40 mg Tablet PO (08:42)
[2019-10-29] MEDS: acetaminophen 325 mg Tablet 650 MG PO ×2 (08:53→14:19)
[2019-10-29 11:39] VITALS: BP 94/67; PULSE 86; RESP 20; TEMP 36.9; O2SAT 97
--- NOTE | 2019-10-29 12:20 | PC.SOCIAL ---
IMM Updated Page 2 of IMM updated and given to patient. Initialed, dated, and timed and placed back in chart.
--- NOTE | 2019-10-29 12:52 | PM.PN ---
Subjective Subjective: Interval history: This morning patient is much more alert, awake, answers questions, is oriented to person, to place, not to time, but answers other questions appropriate, apparently has been calling his family members to jog his memory, in addition patient has been able to ambulate without a walker to the bathroom. Patient denies drinking alcohol, denies alcohol is an issue for him, states that he will have alcohol if he goes out to dinner with a beautiful lady, but does not sit at a bar and drink alcohol Vitals/I&O/Wt Last Vital Signs Temp 98.4 F 10/29/19 11:39 Pulse 86 10/29/19 11:39 Resp 20 H 10/29/19 11:39 BP 94/67 10/29/19 11:39 Pulse Ox 97 10/29/19 11:39 10/28/19 10/29/19 10/29/19 22:59 06:59 14:59 Intake Total 240 / 720 400 / 1120 720 / 720 Output Total 0 / 0 Balance 240 / 720 400 / 1120 720 / 720 Physical Exam Urinary Catheter Management^: Parisi Latex: Cath Placed During This Visit: yes, but has since been removed by the nurse Reason for Continuing Indwelling Catheter: Accurate Measurement of Urinary Output in Critically Ill Patients Urinary Catheter Date of Insertion: 10/19/19 Urinary Catheter Time of Insertion: 00:35 Date Urinary Catheter Removed: 10/23/19 Time Urinary Catheter Discontinued: 12:30 Data : 10/27/19 04:42 10/27/19 04:42 A&P Assessment and plan (1) Alcoholic hepatitis: Continue to follow LFTs closely. Avoid alcohol. Appears to be improving Status: Acute Code(s): K70.10 - Alcoholic hepatitis without ascites (2) Alcohol abuse: -Out of withdrawal -Likely has Wernicke's Korsakoff syndrome -I have started intramuscular thiamine high-dose, folic acid, B12 Status: Acute Code(s): F10.10 - Alcohol abuse, uncomplicated (3) Multiple rib fractures: -Multiple right nondisplaced rib fractures. Probable subtle buckle fractures of the anterior left 4th and 5th ribs Status: Acute Qualifiers: Encounter type: initial encounter Fracture type: closed Laterality: right Qualified Code(s): S22.41XA - Multiple fractures of ribs, right side, initial encounter for closed fracture Code(s): S22.49XA - Multiple fractures of ribs, unspecified side, initial encounter for closed fracture (4) Recurrent falls: Secondary to alcohol Secondary to Wernicke's encephalopathy and Korsakoff syndrome Patient does not want help, very unsteady on his feet, high risk of falls, high risk of trauma, has already had left neck trauma in August required surgical evacuation of hematoma Status: Acute Code(s): R29.6 - Repeated falls (5) Rib fracture: Status: Acute Code(s): S22.39XA - Fracture of one rib, unspecified side, initial encounter for closed fracture (6) Fever: -Afebrile -So far no infectious source, blood sugar cultures unremarkable, urine cultures unremarkable, ultrasound negative for any ascitic fluid -Patient's CT chest showed multiple groundglass opacities, has multiple rib fractures -Has a high risk of pneumonia -Likely also patient is going through alcohol withdrawal, fevers related to alcohol withdrawal, delirium tremens - Plan: -Blood cultures and urine cultures have been unremarkable -Antibiotics have been stopped -Monitor clinical progress Status: Acute Code(s): R50.9 - Fever, unspecified (7) Wernicke-Korsakoff syndrome (alcoholic): -Patient has a lot of symptoms associated with Wernicke-Korsakoff syndrome and dementia -Episodes of altered mentation, some abdominal aplasia, confabulates, quite unsteady on his feet, is having memory issues -Records from [facility] shows diagnosis of encephalopathy secondary to Wernicke's encephalopathy and dementia, treatment with thiamine -Unfortunate there is no family members are involved in his care, will try to return to his sisters -Unfortunately placement will become a big issue, as patient is quite confused, has confabulation, is unsteady on his feet, is already saying that he wants to go home -Patient would be a good candidate for geriatric psych if he were to step, will discuss with case workers -I have started high-dose thiamine treatments today -Is getting folate, B12, multivitamins 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 (8) Acute liver failure: -Records from [facility] shows that he was diagnosed with acute liver failure, DF score 43, but GH 8 Status: Acute Code(s): K72.00 - Acute and subacute hepatic failure without coma Additional A&P Information Patient has been seen by psychiatry, has a 96-hour hold, felt to be a danger to himself and others Patient today needs aggressive PT OT, will have psychiatry come by and see the patient, discharge planning to home versus intermediate facility, with versus home health care has episodes of confusion, confabulation, but wants to go home, does not want to go to the group home, this is a very difficult situation, I spoke to patient's sister, there is not much more she can do, this is a difficult situation I was able to speak to patient's sister, who states that patient was originally up at [facility] in early August, as he sustained a significant left neck abscess that required incision and drainage, of hematoma. In addition he was diagnosed with severe Wernicke's and felt encephalopathy there, he according to sister improved with thiamine, B12, folate. Patient's sister states that she brought him home, took care of him, fed him, ensure that he took his medications. Patient's sister states that as soon as he was able to walk, he was at the bar, he was drinking, and back to his old ways of drinking alcohol. Patient's sister states that he has been drinking alcohol since he has been 14 years old, is not uncommon for him to go through a 12 pack of beers. But now has been drinking hard liquor. Patient's sister states that there is not much she can do for him, she is already done as much as she could, he he lives at her rental property, and it is typically his friends at enable his drinking. Full code DVT prophylaxis: SCDs because of recent falls, scalp hematoma Discharge planning to see. May need significant supportive care, referral to rehab, etc. 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
[2019-10-29 15:38] VITALS: BP 102/73; PULSE 79; RESP 18; TEMP 36.4; O2SAT 95
[2019-10-29 20:00] VITALS: BP 113/71; PULSE 71; RESP 20; TEMP 36.6; O2SAT 97
[2019-10-30] VITALS (7 sets, daily range): BP systolic 93–150; BP diastolic 59–82; PULSE 72–86; RESP 18–22; TEMP 36.6–37.1; O2SAT 95–99
[2019-10-30] MEDS: acetaminophen 325 mg Tablet 650 MG PO ×2 (00:39→21:35)
[2019-10-30] MEDS: multivitamin therapeutic Tablet 1 TAB PO (08:54)
[2019-10-30] MEDS: folic acid 1 mg Tablet PO (08:54)
[2019-10-30] MEDS: amlodipine 10 mg Tablet PO (08:54)
[2019-10-30] MEDS: pantoprazole DR 40 mg Tablet PO (08:55)
[2019-10-30] MEDS: cyanocobalamin 1,000 mcg Tablet 1000 MCG PO (08:57)
--- NOTE | 2019-10-30 14:38 | P.PN_ITS ---
Subjective Subjective: Interval history: Canelo is alert and oriented this morning. He does not seem to think he has any problem with alcohol. He reports he wants to go home Medications: Reviewed: Yes Vitals/I&O/Wt Last Vital Signs Temp 98.2 F 10/30/19 11:06 Pulse 72 10/30/19 11:06 Resp 18 10/30/19 11:06 BP 110/74 10/30/19 11:06 Pulse Ox 95 10/30/19 11:06 10/29/19 10/30/19 10/30/19 22:59 06:59 14:59 Intake Total 630 / 1350 240 / 240 Balance 630 / 1350 240 / 240 Physical Exam Narrative: EXAM NARRATIVE: General exam is no apparent distress Cardiovascular regular rate and rhythm without murmur Lungs clear Abdomen is soft with positive bowel sounds Extremities no cyanosis clubbing or edema Urinary Catheter Management^: Parisi Latex: Cath Placed During This Visit: yes, but has since been removed by the nurse Reason for Continuing Indwelling Catheter: Accurate Measurement of Urinary Output in Critically Ill Patients Urinary Catheter Date of Insertion: 10/19/19 Urinary Catheter Time of Insertion: 00:35 Date Urinary Catheter Removed: 10/23/19 Time Urinary Catheter Discontinued: 12:30 Data : 10/27/19 04:42 10/27/19 04:42 A&P Assessment and plan (1) Alcoholic hepatitis: Improved. No laboratory since the . Status: Acute Code(s): K70.10 - Alcoholic hepatitis without ascites (2) Alcohol abuse: Out of withdrawal. Currently on thiamine and B12 and folic acid. Was concern for Warnicke Korsakoff but he is markedly improved Status: Acute Code(s): F10.10 - Alcohol abuse, uncomplicated (3) Multiple rib fractures: Multiple rib fractures. Currently appears to be asymptomatic Status: Acute Qualifiers: Encounter type: initial encounter Fracture type: closed Laterality: right Qualified Code(s): S22.41XA - Multiple fractures of ribs, right side, initial encounter for closed fracture Code(s): S22.49XA - Multiple fractures of ribs, unspecified side, initial encounter for closed fracture (4) Recurrent falls: Secondary to alcoholism, likely some degree of alcoholic encephalopathy. Recent history of neck trauma from falling requiring extensive hospitalization. Status: Acute Code(s): R29.6 - Repeated falls (5) Rib fracture: See above Status: Acute Code(s): S22.39XA - Fracture of one rib, unspecified side, initial encounter for closed fracture (6) Fever: Cultures negative. Likely secondary to alcohol withdrawal Status: Acute Code(s): R50.9 - Fever, unspecified (7) Wernicke-Korsakoff syndrome (alcoholic): Presumably was diagnosed with Warnicke Korsakoff at [place] as well. He continues to deny alcohol is a problem. He has had at least 2 admissions, life- threatening concerns secondary to falls and alcohol withdrawal. Psychiatry has evaluated him again, and believes a 96-hour hold is necessary and that he is a threat to himself.At this point an attempt to place him with geriatric psychiatry. 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 (8) Acute liver failure: Improved Status: Acute Code(s): K72.00 - Acute and subacute hepatic failure without coma Additional A&P Information Full code SCDs for DVT prophylaxis Overall plan is to discharge to geriatric psychiatry Attestations Medical Necessity Statement*: Needs continued hospitalization, secondary to 96-hour hold with threat to himself secondary to alcoholism, repetitive severe falls with severe injury Coding Level of Care Code Acute Supervisor Fish Bait Processing for jayashree Ugarte Diagnoses Alcoholic hepatitis K70.10 Alcohol abuse F10.10 Multiple rib fractures S22.41XA Encounter type: initial encounter Fracture type: closed Laterality: right Recurrent falls R29.6 Rib fracture S22.39XA Fever R50.9 Wernicke-Korsakoff syndrome (alcoholic) F10.96 Acute liver failure K72.00
--- NOTE | 2019-10-30 14:45 | PM.NPN ---
Subjective NPU Subjective: Interval history: This is a follow-up to Dr. Alvarez's assessment. I was called today by Dr. Rosales to assess the patient, who has requested he be discharged. I saw the patient shortly thereafter. He was agitated and confabulating. He sounds normal but, when you listen to him it is very clear that he is, in a large part of what he says, making it up as he goes along. He flatly states he has no intention of quitting drinking and says that he does not believe the doctors assessment of the relationship between his current condition and alcohol. He thinks they are mistaken and do not know what they are doing. He told me to get out of the room but I hung in there with him and he expanded further, apparently having forgotten that he had told me to leave. The patient will not cooperate in a formal mental status assessment but it is quite clear that his Wernicke Korsakoff syndrome has not completely resolved. Patient's sister's commentary is worthy of notice: the patient was originally up at [facility] in early August, as he sustained a significant left neck abscess that required incision and drainage, of hematoma. In addition he was diagnosed with severe Wernicke's encephalopathy there. According to sister he improved with thiamine, B12, folate. She brought him home, took care of him, fed him, ensured that he took his medications. However, as soon as her brother was able to walk, he was at the bar, back to his old ways. Patient's sister states that he has been drinking alcohol since he was 14 years old. It is not uncommon for him to go through a 12-pack of beer. But now he drinks hard liquor. Patient's sister says there is not much she can do for him. He is already had multiple falls with rib fractures. Medications: Reviewed: Yes Medication Review Details: Current Medications Acetaminophen (Tylenol) 650 mg PO Q4H PRN PRN Reason: MILD PAIN OR INCREASE TEMP Last Admin: 10/30/19 00:39 Dose: 650 mg Documented by: Amlodipine Besylate (Norvasc) 10 mg PO DAILY ON LICENSE OF [facility] Last Admin: 10/30/19 08:54 Dose: 10 mg Documented by: Cyanocobalamin (Vitamin B-12) 1,000 mcg PO DAILY ON LICENSE OF [facility] Last Admin: 10/30/19 08:57 Dose: 1,000 mcg Documented by: Folic Acid (Folic Acid) 1 mg PO DAILY ON LICENSE OF [facility] Last Admin: 10/30/19 08:54 Dose: 1 mg Documented by: Lanolin (Lanolin Oint) 1 applic TOPICAL PRN PRN PRN Reason: DRYNESS Last Admin: 10/27/19 15:40 Dose: 1 appful Documented by: Lisinopril (Prinivil) 10 mg PO DAILY ON LICENSE OF [facility] Last Admin: 10/24/19 08:32 Dose: 10 mg Documented by: Metoprolol Tartrate (Lopressor) 25 mg PO BID ON LICENSE OF [facility] Last Admin: 10/24/19 17:37 Dose: 25 mg Documented by: Multivitamins Therapeutic (Multivitamin Tab) 1 tab PO DAILY ON LICENSE OF [facility] Last Admin: 10/30/19 08:54 Dose: 1 tab Documented by: Pantoprazole Sodium (Protonix) 40 mg PO DAILY ON LICENSE OF [facility] Last Admin: 10/30/19 08:55 Dose: 40 mg Documented by: Thiamine Mononitrate (Vitamin B-1) 100 mg PO DAILY ON LICENSE OF [facility] Last Admin: 10/25/19 10:00 Dose: 100 mg Documented by: Zinc Oxide (Zinc Oxide) 1 applic TOPICAL BID ON LICENSE OF [facility] Last Admin: 10/30/19 08:51 Dose: 1 appful Documented by: Mental Status Exam MSE Comments: This is a 70-year-old male who was found in room 250 bed 2, insistent on discharge. He flatly states that he continued and he plans to drink beer and do what he pleases and is not going to harm him. Thought processes are integrated and free of any racing, blocking or looseness of association. However, the patient is utterly bereft of insight and judgment and confabulates without embarrassment. He has no regard for medical opinion. He has not the cognitive wherewithal to keep himself from harm's way. The rib fractures speak for themselves. Vitals/I&O/Wt Last Vital Signs Temp 98.2 F 10/30/19 11:06 Pulse 72 10/30/19 11:06 Resp 18 10/30/19 11:06 BP 110/74 10/30/19 11:06 Pulse Ox 95 10/30/19 11:06 10/29/19 10/30/19 10/30/19 23:59 07:59 15:59 Intake Total 630 240 Balance 630 240 Physical Exam Urinary Catheter Management^: Parisi Latex: Urethral Indwelling: No Urinary Catheter Date of Insertion: 10/19/19 Urinary Catheter Time of Insertion: 00:35 Date Urinary Catheter Removed: 10/23/19 Time Urinary Catheter Discontinued: 12:30 Data NPU : 10/27/19 04:42 10/27/19 04:42 A&P Assessment and plan (1) Wernicke-Korsakoff syndrome (alcoholic): -Patient has a lot of symptoms associated with Wernicke-Korsakoff syndrome and dementia. -Episodes of altered mentation, some abdominal aplasia, confabulates, quite unsteady on his feet, is having memory issues. -Records from [facility] shows diagnosis of encephalopathy secondary to Wernicke's encephalopathy and dementia, treatment with thiamine. -Unfortunate there are no family members involved in his care. -Unfortunately placement will become a big issue, as patient is quite confused, has confabulation, is unsteady on his feet, is already saying that he wants to go home. -The admitting hospitalist felt that the patient would be a good candidate for geriatric psych if he were to step, will discuss with case workers. I completely agree. I had been willing to accept to our NPU but I was informed that he is a geropsychiatry case and does not meet the criteria. I talked to the biztalk administrator rehabilitation liaison and the case is now in the hands of the hothouse worker, who will perez for a geropsychiatric bed in the state of [place]. [place] is out of the question as [place] law is not valid there. I have filled out a 96-hour involuntary hospitalization petition based on the patient's request to be discharged, which is wholly inappropriate and would quickly put him in harm's way. 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 No petition was made out until today. Attestations NPU Medical Necessity Statement*: This patient is likely to stay here until we can find a geropsychiatric bed. Time Spent in Patient Care: Greater than 35 minutes (>than 50% of time spent in counselling and/or direct pt care on unit). Multiple consultations with hospitalist. Consultation and assessment of patient. Consultation with hospital biztalk administrator and hothouse worker as well as unit insurance case manager. Generation of this report. Total time: At least 2 hours. 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
--- NOTE | 2019-10-30 19:32 | PC.NURSE ---
Called report to Whit DUNLAP in NPU. All questions answered. Will be going to [id number].
[2019-10-31 06:00] VITALS: BP 123/83; PULSE 76; RESP 18; TEMP 36.8; O2SAT 98
--- NOTE | 2019-10-31 07:15 | PC.PT ---
PT NOTE:PT goals achieved 10/30/19;pt is now discharged from skilled PT services.
--- NOTE | 2019-10-31 08:14 | PC.OT ---
OT note: Discussed pt's progress with TALAVERA as pt was able to transfer without device to bathroom and took shower but needed max encouragement and verbal cues for completion of job. Pt would often verbalize to TALAVERA that the thorough job TALAVERA was cuing pt to do was not the way he normally does it but with more encouragement he would follow cues. Discharging from OT at this time as pt has met/exceeded goals but due to mental status further progress appears limited.
--- NOTE | 2019-10-31 09:26 | PM.EVENT ---
Event Note Event Note: I have reviewed patient's chart again this morning. Again he appears medically stable. I will sign off but please call me for any questions or concerns.
[2019-10-31] MEDS: metoprolol tartrate 25 mg Tablet PO ×2 (09:27→18:00)
[2019-10-31] MEDS: thiamine 100 mg Tablet PO (09:27)
[2019-10-31] MEDS: amlodipine 5 mg Tablet PO (09:27)
[2019-10-31] MEDS: folic acid 1 mg Tablet PO (09:27)
[2019-10-31] MEDS: pantoprazole DR 40 mg Tablet PO (09:27)
[2019-10-31] MEDS: multivitamin therapeutic Tablet 1 TAB PO (09:27)
[2019-10-31] MEDS: cyanocobalamin 1,000 mcg Tablet 1000 MCG PO (09:28)
[2019-10-31] MEDS: blistex lip oint 7 gm Tube 1 APPLIC TOPICAL (09:29)
[2019-10-31] MEDS: acetaminophen 325 mg Tablet 650 MG PO (09:54)
[2019-10-31 14:00] VITALS: BP 92/52; PULSE 74; RESP 20; TEMP 36.9; O2SAT 94
--- NOTE | 2019-10-31 18:32 | PM.NPN ---
Subjective NPU Subjective: Interval history: The patient is rapidly improving. He is now unsteady on his feet and he is much clearer in his thoughts. He does not seem to remember having been rough with me upstairs. Today he is coherent and is able to engage in normal conversation. He appears to be oriented and is not confabulating today.. Medications: Reviewed: Yes Medication Review Details: Current Medications Acetaminophen (Tylenol) 650 mg PO Q4H PRN PRN Reason: MILD PAIN OR INCREASE TEMP Last Admin: 10/31/19 09:54 Dose: 650 mg Documented by: Amlodipine Besylate (Norvasc) 5 mg PO DAILY [facility] Last Admin: 10/31/19 09:27 Dose: 5 mg Documented by: Camphor/Menthol/Phenol (Blistex) 1 applic TOPICAL PRN PRN PRN Reason: DRYNESS Last Admin: 10/31/19 09:29 Dose: 1 applic Documented by: Cyanocobalamin (Vitamin B-12) 1,000 mcg PO DAILY [facility] Last Admin: 10/31/19 09:28 Dose: 1,000 mcg Documented by: Folic Acid (Folic Acid) 1 mg PO DAILY [facility] Last Admin: 10/31/19 09:27 Dose: 1 mg Documented by: Lanolin (Lanolin Oint) 1 applic TOPICAL PRN PRN PRN Reason: DRYNESS Last Admin: 10/27/19 15:40 Dose: 1 appful Documented by: Metoprolol Tartrate (Lopressor) 25 mg PO BID [facility] Last Admin: 10/31/19 18:00 Dose: 25 mg Documented by: Multivitamins Therapeutic (Multivitamin Tab) 1 tab PO DAILY [facility] Last Admin: 10/31/19 09:27 Dose: 1 tab Documented by: Pantoprazole Sodium (Protonix) 40 mg PO DAILY [facility] Last Admin: 10/31/19 09:27 Dose: 40 mg Documented by: Thiamine Mononitrate (Vitamin B-1) 100 mg PO DAILY [facility] Last Admin: 10/31/19 09:27 Dose: 100 mg Documented by: Zinc Oxide (Zinc Oxide) 1 applic TOPICAL BID [facility] Last Admin: 10/31/19 18:01 Dose: 1 appful Documented by: Mental Status Exam MSE Comments: This is a 69-year-old male who seems far older. He is weak and has peripheral neuropathy, complaining of bilateral foot pain. Mood is anxious. He wants his [place] interest returned to him. He says he is going to drink when he gets out and we can keep him forever. He seems not to understand that we do not want to. Affect is subdued. Thought processes are integrated and free of any racing, blocking or looseness of association. There is no evidence of psychosis, such as hallucination, delusion or ideas of reference. Speech is of normal rate and volume, without dysarthria, aprosody or pressure. There is no confabulation today. Cognitive functions seem to be reconstituting. He is oriented now and can describe where he lives. He can name who will be taking care of him and describe where they live. He denies suicidal or homicidal ideation, plan or intent. He always did. Vitals/I&O/Wt Last Vital Signs Temp 98.4 F 10/31/19 14:00 Pulse 74 10/31/19 14:00 Resp 20 H 10/31/19 14:00 BP 92/52 10/31/19 14:00 Pulse Ox 94 10/31/19 14:00 Physical Exam Urinary Catheter Management^: Parisi Latex: Cath Placed During This Visit: yes, but has since been removed by the nurse Urethral Indwelling: No Reason for Continuing Indwelling Catheter: Accurate Measurement of Urinary Output in Critically Ill Patients Urinary Catheter Date of Insertion: 10/19/19 Urinary Catheter Time of Insertion: 00:35 Date Urinary Catheter Removed: 10/23/19 Time Urinary Catheter Discontinued: 12:30 Data NPU : 10/27/19 04:42 10/27/19 04:42 A&P Assessment and plan (1) Delirium: This is resolving rapidly Status: Acute Code(s): R41.0 - Disorientation, unspecified (2) Alcohol abuse: The appropriate education is undertaken. Rehabilitation is offered. He wants none of it. Status: Acute Code(s): F10.10 - Alcohol abuse, uncomplicated (3) Multiple rib fractures: This is derivative of his drinking. Status: Acute Qualifiers: Encounter type: initial encounter Fracture type: closed Laterality: right Qualified Code(s): S22.41XA - Multiple fractures of ribs, right side, initial encounter for closed fracture Code(s): S22.49XA - Multiple fractures of ribs, unspecified side, initial encounter for closed fracture Involuntary Hold Information 96 Hour Hold: 96 Hour Involuntary Admission: Yes 96 Hour Hold Start Date: 10/30/19 96 Hour Hold Start Time: 13:01 96 Hour Hold Ending Date: 11/03/19 96 Hour Hold Ending Time: 13:30 Attestations NPU Medical Necessity Statement*: I anticipate 2 to 3 midnights at the most Coding Level of Care Code 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
[2019-10-31 20:43] VITALS: BP 101/64; PULSE 67; RESP 22; TEMP 36.9; O2SAT 98
[2019-11-01 06:00] VITALS: BP 112/69; PULSE 75; RESP 20; TEMP 37.1; O2SAT 98
[2019-11-01] MEDS: acetaminophen 325 mg Tablet 650 MG PO (06:56)
[2019-11-01] MEDS: pantoprazole DR 40 mg Tablet PO (08:11)
[2019-11-01] MEDS: metoprolol tartrate 25 mg Tablet PO (08:11)
[2019-11-01] MEDS: cyanocobalamin 1,000 mcg Tablet 1000 MCG PO (08:11)
[2019-11-01] MEDS: folic acid 1 mg Tablet PO (08:11)
[2019-11-01] MEDS: thiamine 100 mg Tablet PO (08:12)
[2019-11-01] MEDS: multivitamin therapeutic Tablet 1 TAB PO (08:12)
[2019-11-01] MEDS: amlodipine 5 mg Tablet PO (08:12)
--- NOTE | 2019-11-01 08:17 | PM.NDC ---
Diagnoses at Discharge Discharge Diagnosis (1) Delirium: Status: Resolved Problem details: This is classical Wernicke-Korsakoff which has resolved. The patient however is at risk because of alcohol abuse disorder. He has been drinking since age 14 and has no intention of stopping now. (2) Alcohol abuse: Status: Chronic Problem details: For the moment the patient's sober. He is competent, per my assessment today, to assume responsibility for his health care and wellbeing. (3) Multiple rib fractures: Status: Acute Qualifiers: Encounter type: initial encounter Fracture type: closed Laterality: right Qualified Code(s): S22.41XA - Multiple fractures of ribs, right side, initial encounter for closed fracture Reason for Visit Reason for Visit: Reason For Visit: FALL / RIGHT SIDE RIB PAIN Hospital Course Hospital Course From the time that Dr. Alvarez saw this patient until my encounter there appears to have been no real improvement and continuing endangerment. If medical issues are stable, then placement in a geropsychiatry unit as recommended by the admitting hospitalist and my colleague Dr. Alvarez should be effectuated if possible. The coronavirus crisis precluded transfer to a geropsychiatry unit. We accepted him at the immigration law specialist's request. The extra few days has made a difference. The one-to-one has been discontinued and he now seems able to get about on his own. On seeing the patient this morning ([id number]) he is completely coherent, oriented and now has adequate cognitive function with the sole exception of his massive denial relating to his alcoholism. Involuntary Hold Information 96 Hour Hold: 96 Hour Involuntary Admission: Yes 96 Hour Hold Start Date: 10/30/19 96 Hour Hold Start Time: 13:01 96 Hour Hold Ending Date: 11/03/19 96 Hour Hold Ending Time: 13:30 Mental Status Exam MSE Comments: This is a 69-year-old male who seems far older. Mood is more relaxed today. He wants his [place] interest returned to him. He says he is going to drink when he gets out and we cannot keep him forever. He seems not to understand that we do not want to. Affect is appropriate. Thought processes are integrated and free of any racing, blocking or looseness of association. There is no evidence of psychosis, such as hallucination, delusion or ideas of reference. Speech is of normal rate and volume, without dysarthria, aprosody or pressure. There is no confabulation today. Cognitive functions seem to be reconstituting. He is oriented now and can describe where he lives. He can name who will be taking care of him and describe where they live. He denies suicidal or homicidal ideation, plan or intent. He is competent today, per my assessment, to resume responsibility for his wellbeing. How he discharges that responsibility is beyond our control. Physical Exam Urinary Catheter Management^: Parisi Latex: Cath Placed During This Visit: yes, but has since been removed by the nurse Urethral Indwelling: No Reason for Continuing Indwelling Catheter: Accurate Measurement of Urinary Output in Critically Ill Patients Urinary Catheter Date of Insertion: 10/19/19 Urinary Catheter Time of Insertion: 00:35 Date Urinary Catheter Removed: 10/23/19 Time Urinary Catheter Discontinued: 12:30 Discharge Data Data Completed and Pending: Completed Studies During Hospitalization Category Date Time Status CT cervical spin wo con* [id number] Urge nt Cat Scan 10/18/19 18:[address] chest abd pel w con* Urgent Cat Scan 10/18/19 18:[address] head wo con* 7 0450 Urgent Cat Scan 10/18/19 18:05 Completed XR chest 1V alana ble 15505 Stat Exams 10/18/19 17:42 Completed XR chest 1V alana ble [id number] Stat Exams 10/21/19 11:15 Completed XR elbow RT min 3 V* 42778 Routine Exams 10/19/19 02:06 Completed XR humerus RT 730 60 Routine Exams 10/19/19 02:08 Completed XR shoulder RT mi n 2V* [id number] Routin e Exams 10/19/19 02:10 [place] [address] [place] at Ultrasound 10/21/19 11:15 Completed Pending at discharge Category Date Time Status Respiratory Viral Panel PCR Stat Lab 10/22/19 07:21 Received Vitals: Last Vital Signs Temp 98.7 F 11/01/19 06:00 Pulse 75 11/01/19 06:00 Resp 20 H 11/01/19 06:00 BP 112/69 11/01/19 06:00 Pulse Ox 98 11/01/19 06:00 Discharge Plan Discharge Patient Disposition: Home, Self-Care Condition: Stable Prescriptions: New Vitamin B-12 1,000 mcg Tablet 1,000 mcg PO DAILY 30 Days Qty: 30 RF: 1 amlodipine 5 mg Tablet 5 mg PO DAILY 30 Days Qty: 30 RF: 1 folic acid 1 mg Tablet 1 mg PO DAILY 30 Days Qty: 30 RF: 1 metoprolol tartrate 25 mg Tablet 25 mg PO BID Qty: 60 RF: 1 Vitamin B-1 (mononitrate) 100 mg Tablet 100 mg PO DAILY 30 Days Qty: 30 RF: 1 Continued pantoprazole 40 mg Tablet,Delayed Release (Dr/Ec) 40 mg PO DAILY RF: 0 hydroxyzine HCl See Rx Instructions .ROUTE .COMPLEX RF: 0 meclizine 25 mg Tablet 25 mg PO Q6H PRN (Reason: Dizziness) 30 Days Qty: 90 RF: 1 lisinopril 10 mg Tablet 10 mg PO DAILY 30 Days Qty: 30 RF: 1 Discharge Orders: Discharge Order (Routine); Ordered 11/01/19 Ordered By: Abimael Varghese Referrals: [facility] [Outside] Discharge Diet: Usual diet Discharge Activity: Resume usual activity Patient Instructions: Alcoholism Discharge Attestations NPU Time Spent in Discharge Care*: greater than 30 min Coding Level of Care Code Acute [facility] Fwd Diagnoses Delirium R41.0 Alcohol abuse F10.10 Multiple rib fractures S22.41XA Encounter type: initial encounter Fracture type: closed Laterality: right
[2019-11-01 12:14] VITALS: BP 112/69; PULSE 75; RESP 20; TEMP 37.1; O2SAT 98
[2019-11-02 10:13] LABS: Adenovirus Not Detected (Not Detected); Human Metapneumovirus Not Detected (Not Detected); Human Parainflu Virus 1 Not Detected (Not Detected); Human Parainflu Virus 2 Not Detected (Not Detected); Human Parainflu Virus 3 Not Detected (Not Detected); Human Rsv A Not Detected (Not Detected); Influenza A Not Detected (Not Detected); Influenza B Not Detected (Not Detected); Rhinovirus/Enterovirus Not Detected (Not Detected)
== END 2019-11-01 13:37 | disposition home or self-care (01) | DRG 432 ==
LOC: ER 18:37 → ICU 22:40 → MEDSURG 10-23 22:24 → NP 10-30 20:30
PROVIDERS: Family Medicine; Admitting Provider Internal Medicine; Emergency Provider Emergency Medicine; Visit Provider Internal Medicine
DX: K70.10 Alcoholic hepatitis without ascites (principal); K72.00 Acute and subacute hepatic failure without coma; S22.41XA Multiple fractures of ribs, right side, initial encounter for closed fracture; R41.0 Disorientation, unspecified; I10 Essential (primary) hypertension; R29.6 Repeated falls; F10.96 Alcohol use, unspecified with alcohol-induced persisting amnestic disorder; G62.9 Polyneuropathy, unspecified; F04 Amnestic disorder due to known physiological condition; R50.9 Fever, unspecified; X58.XXXA Exposure to other specified factors, initial encounter; Z79.83 Long term (current) use of bisphosphonates; Z87.891 Personal history of nicotine dependence; Z79.811 Long term (current) use of aromatase inhibitors; Z79.84 Long term (current) use of oral hypoglycemic drugs
CPT/HCPCS: 12345; 36415; 51702; 70450; 71045; 71260; 72125; 73020; 73030; 73060; 73080; 74177; 76705; 80053; 80202; 80307; 81001; 82140; 82607; 83605; 83735; 84100; 84145; 85025; 85610; 85651; 86140; 87040; 87086; 87493; 87641; 87804; 93005; 96372; 96375; 97110; 97116; 97161; 97166; 97530; 97535; 99283; J0360; J1630; J2060; J2270; J2543; J3010; J3370; J3411; J3490; J7030; J7040; J7050; Q9967

== ENCOUNTER → 2020-01-29 14:02 | Outpatient (BNVA) | payer MEDICARE, SELFPAY | PROVIDERS: Visit Provider Podiatrist Foot & Ankle Surgery | DX: M79.671 Pain in right foot (principal); M79.672 Pain in left foot; M19.071 Primary osteoarthritis, right ankle and foot; M19.072 Primary osteoarthritis, left ankle and foot; M24.675 Ankylosis, left foot | CPT/HCPCS: 73630 ==

== ENCOUNTER 2020-01-29 16:25 | Outpatient (CLI) | payer MEDICARE, SELFPAY | END 2020-01-29 16:26 | disposition home or self-care (01) | LOC: SPT 16:25 | PROVIDERS: Visit Provider Podiatrist Foot & Ankle Surgery | DX: Z46.89 Encounter for fitting and adjustment of other specified devices (principal); M19.072 Primary osteoarthritis, left ankle and foot; M19.071 Primary osteoarthritis, right ankle and foot; M79.671 Pain in right foot; M79.672 Pain in left foot; M24.675 Ankylosis, left foot | CPT/HCPCS: 73630; 97760; L1902 ==

== ENCOUNTER 2020-11-14 08:37 | Emergency (ER) | payer MEDICARE, SELFPAY ==
--- NOTE | 2020-11-14 08:51 | ECG_ITS ---
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 Measurements Intervals Worth Rate: 105 P: 44 TX: 178 QRS: -38 QRSD: 149 T: 23 QT: 477 QTc: 632 Interpretive Statements SINUS TACHYCARDIA WITH ARTIFACT LEFT AXIS DEVIATION [QRS AXIS < -30] RIGHT BUNDLE BRANCH BLOCK [120+ ms QRS DURATION, UPRIGHT V1, 40+ ms S IN I/aVL/V4/V5/V6] Compared to ECG 10/18/2019 18:24:15 Ventricular premature complex(es) now present Left-axis deviation now present Right-axis deviation no longer present Electronically Signed On 11-14-2020 22:30:36 CDT by Radha Dickens M.D. [id number]
--- NOTE | 2020-11-14 08:51 | CT_ITS ---
WS: [id number] CT HEAD TECHNIQUE: Noncontrast CT of the head obtained from the skullbase to the vertex. CLINICAL INFORMATION: head injury COMPARISON: None. DLP: 972.[address] scans at [facility] use at least one of these dose optimization techniques: automat ed exposure control; mA and/or kV adjustment per patient size (includes targeted exams where dose is matched to clinical indication); or iterative reconstruction. FINDINGS: No evidence of intracranial hemorrhage or mass effect. Ventricular system and basal cisterns are wallace nt. Mild small vessel changes with moderate parenchymal volume loss. No extra-axial fluid collections . No evidence of mass or mass effect. Normal das-white differentiation. Left frontal scalp hematoma. No calvarial fractures. Mucosal thickening left mastoid air cells. Mild mucosal thickening in the paranasal sinuses. Displaced right anterior nasal bone fractures appears new since October 18, 2019. Chronic appearing na rudy septal deviation. Soft tissue edema overlying the nasal bones. CT/CT head wo con* [id number] IMPRESSION: 1. No evidence of intracranial hemorrhage or mass effect. 2. Mild small vessel changes. Moderate parenchymal volume loss. 3. Slightly displaced right anterior nasal bone fractures. 4. Left frontal scalp hematoma.
--- NOTE | 2020-11-14 08:51 | XR_ITS ---
WS: [id number] Portable AP supine chest, 11/14/2020 Clinical Data: fall Comparison: Portable chest, 10/21/2019. Findings: No nodules, masses or effusions are seen. The heart is normal. The pulmonary vascularity is not increased. No pneumonia or pneumothorax is seen. The aortic arch and descending aorta show tortu osity. There are old lateral right seventh and eighth rib fractures. There is a new left lateral mine nth rib fracture. XR/XR chest 1V portable [id number] Impression: 1. Atherosclerosis. 2. New left lateral seventh rib fracture.
--- NOTE | 2020-11-14 08:52 | ED_ITS ---
Documented by User: ARIELLE Rowell 11/14/20 13:21 HPI - Fall General: Chief Complaint: Head Injury Stated Complaint: confusion, head trauma Time Seen by Provider: 11/14/20 08:40 History of Present Illness: HPI Narrative: Patient arrived via ambulance with complaint of fall. Patient has a laceration to forehead and abrasions to left hand. It was reported patient is confused. patient was found laying down near a restaurant. Mr. Lara says that he was going down the [employer] gentleman for breakfast. Says he has been falling a lot lately. Patient complains about left hand pain from the abrasion and right elbow pain. Unknown how long he was down. complaint: fall Onset (ago): unknown Fall from: other (Patient states he fell and hit stairs) Fall witnessed: no Place fall occurred: street Loss of consciousness: Unsure Prolonged down time: unclear Symptoms prior to fall: none Context: tripped/slipped and history of frequent falls Location of injury: head Location of injury - extremities: Left: hand Severity: mild Severity scale (1-10): 2 Associated symptoms-after fall: Reports no associated symptoms; Denies abdominal pain, chest pain or headache(s) Review of Systems Const: Denies: fever(s), chills or body aches Eyes: Denies: change in vision or blurry vision ENMT: Denies: throat pain or nasal congestion Card: Denies: chest pain or dyspnea on exertion Resp: Denies: dyspnea, productive cough or non-productive cough GI: Denies: abdominal pain, nausea or vomiting : Denies: difficulty urinating Musc: Reports: back pain and joint pain (Right elbow); Denies: extremity pain Skin/Breast: Reports: other (Laceration to forehead abrasions left hand); Denies: rash Neuro: Denies: headache(s) Psych: Denies: anxiety or depression Angel/Lymph: Denies: easy bruising PFS ED PFSH: Medical History (Updated 11/14/20 @ 13:07 by ARIELLE Rowell) Alcoholism Hematoma Hepatic encephalopathy Liver cirrhosis Recurrent falls Surgical History H/O inguinal hernia repair Family History Denies family history of Clotting disorder Dementia Chronic kidney disease (CKD) Cancer Social History Smoking and tobacco status: former smoker Alcohol intake: current Lives independently: Yes Household members: other Details: He lives alone Housing: House Marital status: Single Marital status details: Not in contact with his children, 2 sisters try to check up on him, sister Marely Barkley from [place] [phone] Physical Exam Const: COMMON NORMALS: no acute distress, average body habitus and alert ORIENTATION/CONSCIOUSNESS: Yes oriented to person, Yes oriented to place (Patient is aware here, the hospital, town and where he lives) and Yes oriented to time HENMT: COMMON NORMALS: normocephalic, EAC's normal and TM's normal bilaterally HEAD & SCALP: normal to inspection and normocephalic FACE & SINUS: normal facial exam NOSE: Abnormal external nose present (Abrasion and tender) nasal abrasion, nasal deviation and nasal swelling EXTERNAL AUDITORY CANAL: EAC's normal TYMPANIC MEMBRANE: TM's normal bilaterally MOUTH: Normal oral and palatal mucosa present and moist mucous membranes abnormal (Has laceration center of the inside upper lip from the nose down approximat) Eye: COMMON NORMALS: conjunctivae normal GENERAL EYE: appearance normal, both eyes and all related structures CONJUNCTIVA: Yes conjunctivae normal Neck/C-Spine: COMMON NORMALS: full ROM and no JVD GENERAL: Yes normal visual inspection CERVICAL SPINE: Yes cervical ROM normal Chest: COMMONS NORMALS: normal inspection of the chest Resp: COMMON NORMALS: normal respiratory effort and clear to auscultation bilaterally AUSCULTATION: clear to auscultation bilaterally Cardio: COMMON NORMALS: no JVD, regular rate and regular rhythm RATE: regular rate RHYTHM: regular rhythm GI: COMMON NORMALS: Normal to inspection, nondistended, normoactive bowel sounds present : COMMON NORMALS: Yes no CVA tenderness BLADDER/KIDNEY EXAM: Yes no CVA tenderness Back/Pelvis: COMMON NORMALS: no CVA tenderness THORACIC SPINE/UPPER BACK: Yes normal to inspection Extremity: COMMON NORMALS: normal to inspection and full ROM RIGHT UPPER EXTREMITY: Yes elbow joint (Tender) Right elbow: Yes ROM (Decreased due to pain) Neuro: COMMON NORMALS: CN's II-XII intact bilaterally SENSORIUM/ORIENTATION: Yes alert, Yes oriented to person, Yes oriented to place (Patient is aware here, the hospital, town and where he lives) and Yes oriented to time GAIT: Yes Unable to assess gait MOTOR EXAM: 5/5 motor strength present throughout Skin: OTHER: Large laceration forehead left side. Abrasions to fingers left hand. Procedures Laceration Laceration 1: Site: scalp Side (If applicable): left Size (cm): 5 Description: irregular and clean Depth: simple, single layer Local Anesthetic: lidocaine 1% Amount of anesthesia used (mL): 2 Pre-repair: wound explored, irrigated extensively and deep structures intact Skin layer closed with: vicryl Size (cm): 4-0 Number of sutures: 4 Technique: simple, interrupted Orthopedic Joint Reduction Joint #1: Time Out Performed: Yes Side: left Joint Reduction Location: finger Analgesia: hematoma block Local Anesthesia: lidocaine 1% Amount of anesthesic used (mL): 10 Shoulder Technique Used (if applicable): traction/counter-traction Post-reduction neuro exam: other (Patient stop reduction mid procedure would now allow us to do anymore reduction Dr. Virea performed) Post Reduction X-Ray Obtained: No Post Reduction X-Ray Results: other (Dr. Viera performed reduction) Splint Applied: Yes Patient Tolerated Procedure: other (Stop procedure in the middle) Course Vital Signs: Vital signs: Vital Signs Temperature 98.0 F 11/14/20 08:53 Pulse Rate 102 H 11/14/20 13:33 Respiratory Rate 18 11/14/20 13:33 Blood Pressure 143/101 11/14/20 13:33 Pulse Oximetry 99 11/14/20 13:33 MDM - Fall MDM Narrative: Medical decision making narrative: Patient refused to allow me to repair laceration inside upper lip. Patient does have nasal bone fracture. Has no tenderness to the cheek mouth area laceration was repaired left eyebrow. Found fracture left fifth metacarpal, possible radial head fracture right side compression fractures L1 to undetermined age, discussed case with Dr. Viera. Dr. Viera evaluated patient and spoke with Dr. Callahan, attempted reduction of left metacarpal fracture reviewed x-rays and labs with me patient okay to be discharged home as per Dr. Viera. Patient strongly encouraged to follow-up with specialist as scheduled and instructed on how to care wound and to abstain from alcohol if at all possible. Warned about tramadol and possibly increasing fall risk. During the procedure to reduce metacarpal fracture patient refused wrist procedure as also he refused to have the wound inside his mouth sewed close. Lab Data: Labs: Lab Results 11/14/20 11/14/20 11/14/20 Range/Units 08:30 08:30 08:30 WBC 6.8 (4.0-10.0) 10^3/ uL RBC 4.75 (4.1-5.3) 10^6/u L Hgb 14.9 (11.7-16.6) g/dL Hct 45.6 (42.0-52.0) % MCV 96.0 H (80-94) fL MCH 31.4 (28.0-34.0) pg MCHC 32.7 (30.0-36.0) g/dL RDW 13.3 (12.1-15.1) % Plt Count 282 (130-400) 10^3/c mm MPV 10.1 (7.4-10.4) fL Neut % (Auto) 53.0 % Lymph % (Auto) 35.3 % [place] % (Auto) 8.8 % Eos % (Auto) 1.6 % Baso % (Auto) 1.0 % Neut # (Auto) 3.62 (1.8-7.7) 10^3/u L Lymph # (Auto) 2.4 (0.8-4.8) 10^3/u L [place] # (Auto) 0.6 (0.2-0.9) 10^3/u L Eos # (Auto) 0.1 (0.0-0.8) 10^3/u L Baso # (Auto) 0.1 (0.0-0.1) 10^3/u L Nucleated RBC % (a uto) 0 % Nucleated RBCs # 0.0 /100WBC PT (12.1-14.9) SECO NDS INR (0.8-1.2) Sodium 137 (136-145) mmol/L Potassium 4.7 (3.5-5.1) mmol/L Chloride 101 (98-107) mmol/L Carbon Dioxide 19 L (22-29) mmol/L Anion Gap 21.7 H (5-19) BUN 9 (8-23) mg/dL Creatinine 1.0 (0.7-1.2) mg/dL GFR Calculation 73.9 L (90-130) mL/min Glucose 107 (65-115) mg/dL Calculated Osmolal ity 283 L (285-295) mOsm/k g Calcium 9.3 (8.5-10.5) mg/dL Total Bilirubin 0.4 (0.15-1.2) mg/dL AST 34 (0-40) U/L ALT 19 (0-41) U/L Alkaline Phosphata se 94 (40-130) IU/L Troponin T Baselin e 13 (0-15) ng/L Troponin T 120 Min morongo (0-15) ng/L Delta Troponin T (0-10) ABS# Total Protein 7.1 (6.6-8.7) g/dL Albumin 4.4 (3.5-5.2) g/dL Globulin 2.7 (1.3-4.6) g/dL 11/14/20 11/14/20 Range/Units 09:16 11:05 WBC (4.0-10.0) 10^3/ uL RBC (4.1-5.3) 10^6/u L Hgb (11.7-16.6) g/dL Hct (42.0-52.0) % MCV (80-94) fL MCH (28.0-34.0) pg MCHC (30.0-36.0) g/dL RDW (12.1-15.1) % Plt Count (130-400) 10^3/c mm MPV (7.4-10.4) fL Neut % (Auto) % Lymph % (Auto) % [place] % (Auto) % Eos % (Auto) % Baso % (Auto) % Neut # (Auto) (1.8-7.7) 10^3/u L Lymph # (Auto) (0.8-4.8) 10^3/u L [place] # (Auto) (0.2-0.9) 10^3/u L Eos # (Auto) (0.0-0.8) 10^3/u L Baso # (Auto) (0.0-0.1) 10^3/u L Nucleated RBC % (a uto) % Nucleated RBCs # /100WBC PT 14.40 (12.1-14.9) SECO NDS INR 1.09 (0.8-1.2) Sodium (136-145) mmol/L Potassium (3.5-5.1) mmol/L Chloride (98-107) mmol/L Carbon Dioxide (22-29) mmol/L Anion Gap (5-19) BUN (8-23) mg/dL Creatinine (0.7-1.2) mg/dL GFR Calculation (90-130) mL/min Glucose (65-115) mg/dL Calculated Osmolal ity (285-295) mOsm/k g Calcium (8.5-10.5) mg/dL Total Bilirubin (0.15-1.2) mg/dL AST (0-40) U/L ALT (0-41) U/L Alkaline Phosphata se (40-130) IU/L Troponin T Baselin e (0-15) ng/L Troponin T 120 Min morongo 13.36 (0-15) ng/L Delta Troponin T 0.36 (0-10) ABS# Total Protein (6.6-8.7) g/dL Albumin (3.5-5.2) g/dL Globulin (1.3-4.6) g/dL Discharge Plan Discharge Patient Disposition: Home Clinical Impression: Laceration, Abrasion, Compression fracture, Recurrent falls Closed fracture nasal bone Qualifiers: Encounter type: initial encounter Qualified Code(s): S02.2XXA - Fracture of nasal bones, initial encounter for closed fracture Contusion Qualifiers: Encounter type: initial encounter Contusion area: elbow Laterality: right Qualified Code(s): S50.01XA - Contusion of right elbow, initial encounter Low back pain Qualifiers: Chronicity: acute Back pain laterality: midline Sciatica presence: without sciatica Qualified Code(s): M54.5 - Low back pain Closed rib fracture Qualifiers: Encounter type: initial encounter Rib fracture type: single rib Laterality: left Qualified Code(s): S22.32XA - Fracture of one rib, left side, initial encounter for closed fracture Metacarpal bone fracture Qualifiers: Encounter type: initial encounter Metacarpal bone: fifth Fracture type: closed Metacarpal location: neck Fracture alignment: displaced Laterality: left Qualified Code(s): S62.337A - Displaced fracture of neck of fifth metacarpal bone, left hand, initial encounter for closed fracture Acute knee pain Qualifiers: Laterality: right Qualified Code(s): M25.561 - Pain in right knee Condition: Stable Prescriptions: New cephalexin 500 mg capsule 500 mg PO Q8H 7 Days Qty: 21 RF: 0 tramadol 50 mg tablet 50 mg PO TID PRN (Reason: pain) Qty: 20 RF: 0 No Action cyanocobalamin (vitamin B-12) [Vitamin B-12] 1,000 mcg Tablet 1,000 mcg PO DAILY 30 Days Qty: 30 RF: 1 lisinopril 10 mg Tablet 10 mg PO DAILY 30 Days Qty: 30 RF: 1 multivitamin Tablet 1 tab PO DAILY RF: 0 omeprazole 20 mg Capsule,Delayed Release(Dr/Ec) 20 mg PO DAILY RF: 0 Discharge Orders: Discharge ED (Routine); Ordered 11/14/20 Ordered By: Jeffy Tomas Referrals: Elia Krueger MD [Physician] - Isaac Joya MD [Physician] - Discharge Diet: Usual diet Discharge Activity: Increase activity as tolerated Patient Instructions: Suture Care (ED), Nasal Fracture (ED), Laceration (ED), H and Fracture (ED), Elbow Fracture in Adults (ED), Contusion in Adults (ED), Abrasion (ED), Fall Prevention (ED), Opioid Safety Activity Restrictions/Additional Instructions: Follow-up with medical provider as directed. Take medications as prescribed. Return to the ER or your medical provider if condition worsens. Please read and understand discharge instructions. If any questions ask please. You have an appointment with Dr Joya at Orthopedics clinic on 11/19/20 at 3 pm. You have an appointment with Dr Krueger at [facility] on 11/15/20 at 2:20 pm. Coding Level of Care Code ED [employer] for Chg Fwd Exam Comprehensive Documented by User: Gilmar Hidalgo MD 11/15/20 00:39 HPI - Fall General: Chief Complaint: Head Injury Stated Complaint: confusion, head trauma Time Seen by Provider: 11/14/20 08:40 [facility] ED PFSH: Medical History (Updated 11/14/20 @ 13:07 by ARIELLE Rowell) Alcoholism Hematoma Hepatic encephalopathy Liver cirrhosis Recurrent falls Surgical History H/O inguinal hernia repair Family History Denies family history of Clotting disorder Dementia Chronic kidney disease (CKD) Cancer Social History Smoking and tobacco status: former smoker Alcohol intake: current Lives independently: Yes Household members: other Details: He lives alone Housing: House Marital status: Single Marital status details: Not in contact with his children, 2 sisters try to check up on him, sister Marely Barkley from [place] [phone] Course Vital Signs: Vital signs: Vital Signs Temperature 98.0 F 11/14/20 08:53 Pulse Rate 102 H 11/14/20 13:33 Respiratory Rate 18 11/14/20 13:33 Blood Pressure 143/101 11/14/20 13:33 Pulse Oximetry 99 11/14/20 13:33 MDM - Fall Lab Data: Labs: Lab Results 11/14/20 11/14/20 11/14/20 Range/Units 08:30 08:30 08:30 WBC 6.8 (4.0-10.0) 10^3/ uL RBC 4.75 (4.1-5.3) 10^6/u L Hgb 14.9 (11.7-16.6) g/dL Hct 45.6 (42.0-52.0) % MCV 96.0 H (80-94) fL MCH 31.4 (28.0-34.0) pg MCHC 32.7 (30.0-36.0) g/dL RDW 13.3 (12.1-15.1) % Plt Count 282 (130-400) 10^3/c mm MPV 10.1 (7.4-10.4) fL Neut % (Auto) 53.0 % Lymph % (Auto) 35.3 % [place] % (Auto) 8.8 % Eos % (Auto) 1.6 % Baso % (Auto) 1.0 % Neut # (Auto) 3.62 (1.8-7.7) 10^3/u L Lymph # (Auto) 2.4 (0.8-4.8) 10^3/u L [place] # (Auto) 0.6 (0.2-0.9) 10^3/u L Eos # (Auto) 0.1 (0.0-0.8) 10^3/u L Baso # (Auto) 0.1 (0.0-0.1) 10^3/u L Nucleated RBC % (a uto) 0 % Nucleated RBCs # 0.0 /100WBC PT (12.1-14.9) SECO NDS INR (0.8-1.2) Sodium 137 (136-145) mmol/L Potassium 4.7 (3.5-5.1) mmol/L Chloride 101 (98-107) mmol/L Carbon Dioxide 19 L (22-29) mmol/L Anion Gap 21.7 H (5-19) BUN 9 (8-23) mg/dL Creatinine 1.0 (0.7-1.2) mg/dL GFR Calculation 73.9 L (90-130) mL/min Glucose 107 (65-115) mg/dL Calculated Osmolal ity 283 L (285-295) mOsm/k g Calcium 9.3 (8.5-10.5) mg/dL Total Bilirubin 0.4 (0.15-1.2) mg/dL AST 34 (0-40) U/L ALT 19 (0-41) U/L Alkaline Phosphata se 94 (40-130) IU/L Troponin T Baselin e 13 (0-15) ng/L Troponin T 120 Min morongo (0-15) ng/L Delta Troponin T (0-10) ABS# Total Protein 7.1 (6.6-8.7) g/dL Albumin 4.4 (3.5-5.2) g/dL Globulin 2.7 (1.3-4.6) g/dL 11/14/20 11/14/20 Range/Units 09:16 11:05 WBC (4.0-10.0) 10^3/ uL RBC (4.1-5.3) 10^6/u L Hgb (11.7-16.6) g/dL Hct (42.0-52.0) % MCV (80-94) fL MCH (28.0-34.0) pg MCHC (30.0-36.0) g/dL RDW (12.1-15.1) % Plt Count (130-400) 10^3/c mm MPV (7.4-10.4) fL Neut % (Auto) % Lymph % (Auto) % [place] % (Auto) % Eos % (Auto) % Baso % (Auto) % Neut # (Auto) (1.8-7.7) 10^3/u L Lymph # (Auto) (0.8-4.8) 10^3/u L [place] # (Auto) (0.2-0.9) 10^3/u L Eos # (Auto) (0.0-0.8) 10^3/u L Baso # (Auto) (0.0-0.1) 10^3/u L Nucleated RBC % (a uto) % Nucleated RBCs # /100WBC PT 14.40 (12.1-14.9) SECO NDS INR 1.09 (0.8-1.2) Sodium (136-145) mmol/L Potassium (3.5-5.1) mmol/L Chloride (98-107) mmol/L Carbon Dioxide (22-29) mmol/L Anion Gap (5-19) BUN (8-23) mg/dL Creatinine (0.7-1.2) mg/dL GFR Calculation (90-130) mL/min Glucose (65-115) mg/dL Calculated Osmolal ity (285-295) mOsm/k g Calcium (8.5-10.5) mg/dL Total Bilirubin (0.15-1.2) mg/dL AST (0-40) U/L ALT (0-41) U/L Alkaline Phosphata se (40-130) IU/L Troponin T Baselin e (0-15) ng/L Troponin T 120 Min [place] 13.36 (0-15) ng/L Delta Troponin T 0.36 (0-10) ABS# Total Protein (6.6-8.7) g/dL Albumin (3.5-5.2) g/dL Globulin (1.3-4.6) g/dL Discharge Plan Discharge Patient Disposition: Home Clinical Impression: Laceration, Abrasion, Compression fracture, Recurrent falls Closed fracture nasal bone Qualifiers: Encounter type: initial encounter Qualified Code(s): S02.2XXA - Fracture of nasal bones, initial encounter for closed fracture Contusion Qualifiers: Encounter type: initial encounter Contusion area: elbow Laterality: right Q ualified Code(s): S50.01XA - Contusion of right elbow, initial encounter Low back pain Qualifiers: Chronicity: acute Back pain laterality: midline Sciatica presence: without sciatica Qualified Code(s): M54.5 - Low back pain Closed rib fracture Qualifiers: Encounter type: initial encounter Rib fracture type: single rib Laterality: left Qualified Code(s): S22.32XA - Fracture of one rib, left side, initial encounter for closed fracture Metacarpal bone fracture Qualifiers: Encounter type: initial encounter Metacarpal bone: fifth Fracture type: closed Metacarpal location: neck Fracture alignment: displaced Laterality: left Qualified Code(s): S62.337A - Displaced fracture of neck of fifth metacarpal bone, left hand, initial encounter for closed fracture Acute knee pain Qualifiers: Laterality: right Qualified Code(s): M25.561 - Pain in right knee Condition: Stable Prescriptions: New cephalexin 500 mg capsule 500 mg PO Q8H 7 Days Qty: 21 RF: 0 tramadol 50 mg tablet 50 mg PO TID PRN (Reason: pain) Qty: 20 RF: 0 No Action cyanocobalamin (vitamin B-12) [Vitamin B-12] 1,000 mcg Tablet 1,000 mcg PO DAILY 30 Days Qty: 30 RF: 1 lisinopril 10 mg Tablet 10 mg PO DAILY 30 Days Qty: 30 RF: 1 multivitamin Tablet 1 tab PO DAILY RF: 0 omeprazole 20 mg Capsule,Delayed Release(Dr/Ec) 20 mg PO DAILY RF: 0 Discharge Orders: Discharge ED (Routine); Ordered 11/14/20 Ordered By: Jeffy Tomas Referrals: Elia Krueger MD [Physician] - Isaac Joya MD [Physician] - Discharge Diet: Usual diet Discharge Activity: Increase activity as tolerated Patient Instructions: Suture Care (ED), Nasal Fracture (ED), Laceration (ED), Hand Fracture (ED), Elbow Fracture in Adults (ED), Contusion in Adults (ED), Abrasion (ED), Fall Prevention (ED), Opioid Safety Activity Restrictions/Additional Instructions: Follow-up with medical provider as directed. Take medications as prescribed. Return to the ER or your medical provider if condition worsens. Please read and understand discharge instructions. If any questions ask please. You have an appointment with Dr Joya at Orthopedics clinic on 11/19/20 at 3 pm. You have an appointment with Dr Krueger at [facility] on 11/15/20 at 2:20 pm. Coding Level of Care Code ED [employer] for [place] Exam Comprehensive
[2020-11-14 08:53] VITALS: BP 162/126; PULSE 113; RESP 16; TEMP 36.7; O2SAT 95; BMI 24.3
--- NOTE | 2020-11-14 08:56 | CT_ITS ---
WS: [id number] CT CERVICAL TRAUMA TECHNIQUE: Noncontrast CT of the cervical spine with coronal and sagittal reformatted images. CLINICAL INFORMATION: fall COMPARISON: October 18, 2019 DLP: 849.[address] scans at [facility] use at least one of these dose optimization techniques: automat ed exposure control; mA and/or kV adjustment per patient size (includes targeted exams where dose is matched to clinical indication); or iterative reconstruction. FINDINGS: Straightening of the normal cervical lordosis. Mild cervical curve. Mild spondylitic changes. Calcifi cation along the nuchal ligament. Disc space narrowing worse at C4-C6. Normal craniocervical junction . Normal C1-C2 articulation. Dens is normal in appearance. Normal occipital condyles. No high-grade s tahir canal narrowing. Normal C1 ring. No evidence of acute fracture or dislocation. Normal prevertebral soft tissues. CT/CT cervical spin wo con* 49145 IMPRESSION: No evidence of acute fracture or dislocation.
[2020-11-14 09:09] LABS: Basophils # 0.1 10^3/uL (0.0-0.1); Eosinophils # 0.1 10^3/uL (0.0-0.8); Eosinophils % 1.6 %; Hematocrit 45.6 % (42.0-52.0); Hemoglobin 14.9 g/dL (11.7-16.6); Lymphocytes # 2.4 10^3/uL (0.8-4.8); Lymphocytes % 35.3 %; Mean Corpuscular HGB Conc 32.7 g/dL (30.0-36.0); Mean Corpuscular Hemoglobin 31.4 pg (28.0-34.0); Mean Platelet Volume 10.1 fL (7.4-10.4); Monocytes # 0.6 10^3/uL (0.2-0.9); Monocytes % 8.8 %; Neutrophils # 3.62 10^3/uL (1.8-7.7); Nucleated Red Blood Cells % 0 %; Platelet Count 282 10^3/cmm (130-400); Red Blood Count 4.75 10^6/uL (4.1-5.3); Red Cell Distribution Width 13.3 % (12.1-15.1); White Blood Count 6.8 10^3/uL (4.0-10.0)
[2020-11-14 09:25] LABS: Alanine Aminotransferase 19 U/L (0-41); Albumin Level 4.4 g/dL (3.5-5.2); Alkaline Phosphatase 94 IU/L (40-130); Anion Gap 21.7 (5-19); Aspartate Amino Transferase 34 U/L (0-40); Blood Urea Nitrogen 9 mg/dL (8-23); Calcium 9.3 mg/dL (8.5-10.5); Carbon Dioxide 19 mmol/L (22-29); Chloride 101 mmol/L (98-107); Creatinine Clr Calc Pharmacy 70.3473; Globulin 2.7 g/dL (1.3-4.6); Glomerular Filtration Rate 73.9 mL/min (90-130); Glucose 107 mg/dL (65-115); Osmolality Calculated 283 mOsm/kg (285-295); Potassium 4.7 mmol/L (3.5-5.1); Sodium 137 mmol/L (136-145); Total Bilirubin 0.4 mg/dL (0.15-1.2); Total Protein 7.1 g/dL (6.6-8.7)
[2020-11-14 09:27] LABS: Troponin(5th) Baseline 13 ng/L (0-15)
[2020-11-14] MEDS: tetanus-diphtheria tox (adult) 0.5 mL SDV IM (09:31)
[2020-11-14 09:35] VITALS: BP 154/106; PULSE 92; RESP 18; O2SAT 100
[2020-11-14 09:37] LABS: INR 1.09 (0.8-1.2)
[2020-11-14] MEDS: sodium chloride 0.9% 1,000 ML 999 ML IV (09:38)
--- NOTE | 2020-11-14 09:48 | XR_ITS ---
WS: [id number] Lumbar spine, 3 views, 11/14/2020 Clinical Data: pain fall Comparison: None. Findings: No subluxation is seen. There is loss of vertebral body height of the superior aspects of the L1 and L4 vertebral bodies. There is degenerative disc narrowing at L3-L4, L4-L5 and L5-S1. There is anterio r osteoarthritic change of the all the lumbar vertebral bodies. The transverse processes and SI joint s are normal. There are low pelvic sutures probably from hernia repair. There is a large amount of fecal material t hroughout the colon. XR/XR lumbar spine 2-3V* 35308 Impression: 1. Degenerative disc narrowing at L3-L4, L4-L5 and L5-S1. 2. Loss of superior vertebral body height of L1 and L2, compression fractures o f indeterminate age. 3. 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
--- NOTE | 2020-11-14 09:48 | XR_ITS ---
WS: [id number] Right elbow, 3 views, 11/14/2020 Clinical Data: pain, fall Comparison: Right elbow, 10/19/2019. Findings: There is a posterior fat pad sign. There may be a slightly impacted fracture of the radial head. Ther e is osteoarthritis of the lateral humeral condyle. The olecranon is intact. XR/XR elbow RT min 3V* 36051 Impression: Possible minimal right radial head fracture.
--- NOTE | 2020-11-14 09:48 | PC.NURSE ---
patient is alert, confused, laceration noted to inner upper lip, sutures to forehead intact, no active bleeding noted.
--- NOTE | 2020-11-14 09:52 | XR_ITS ---
WS: [id number] Left hand, 3 views, 11/14/2020 Clinical Data: fall Comparison: None. Findings: There is a comminuted fracture of the distal third of the left fifth metacarpal. There are no fractur es in the remainder of the left hand. There is osteoarthritic change of the PIP and DIP joints. There is osteoarthritis at the base of left first metacarpal. There is osteoarthritis of the left second t hrough fourth MCP joints. An intravenous catheter is in the dorsum of the wrist. XR/XR hand LT min 3V* [id number] Impression: Comminuted fracture of left fifth metacarpal.
--- NOTE | 2020-11-14 10:52 | ECG_ITS ---
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 Measurements Intervals [place] Rate: 100 P: 50 MA: 168 QRS: -17 QRSD: 140 T: 28 QT: 376 QTc: 486 Interpretive Statements SINUS TACHYCARDIA RIGHT BUNDLE BRANCH BLOCK [120+ ms QRS DURATION, UPRIGHT V1, 40+ ms S IN I/aVL/V4/V5/V6] Compared to ECG 11/14/2020 09:25:28 Ventricular premature complex(es) no longer present Left-axis deviation no longer present Electronically Signed On 11-14-2020 21:15:10 CDT by Radha Dickens M.D. [id number]
[2020-11-14 11:31] VITALS: BP 180/108; PULSE 103; RESP 18; O2SAT 98
[2020-11-14 11:46] LABS: Troponin 5 2HR 13.36 ng/L (0-15); Troponin 5 2HR Delta 0.36 ABS# (0-10)
--- NOTE | 2020-11-14 12:01 | XR_ITS ---
WS: [id number] Right knee, 3 views, 11/14/2020 Clinical Data: fall Comparison: None. Findings: No fractures or dislocations are seen. There is medial joint compartment narrowing with minimal calci fication in the cartilage. The patella is intact. The soft tissues are unremarkable. XR/XR knee RT 3V* 35978 Impression: Negative for right knee fracture.
[2020-11-14 12:19] VITALS: BP 163/105; PULSE 105; RESP 18; O2SAT 98
[2020-11-14 13:33] VITALS: BP 143/101; PULSE 102; RESP 18; O2SAT 99
--- NOTE | 2020-11-14 13:41 | DCPLANNER ---
business banking manager had message to schedule a follow up appointment for patient with ortho and with ENT. business banking manager called the ortho clinic, spoke with Sherley, gave clinic patients information. A follow up appointment was scheduled for Thursday, November 19, 2020 at 3:[address] Joya. business banking manager called the ENT clinic, spoke with Bere, gave clinic patients information. A follow up appointment was scheduled for Sunday, November 15, 2020 at 2:[address] Krueger. business banking manager gave patient the appointment information for both appointments.
--- NOTE | 2020-11-14 13:50 | PC.NURSE ---
cleaned left hand and face with NS, Patient tolerated well. patient ambulated to bathroom without difficulty.
--- NOTE | 2020-11-20 15:06 | DCPLANNER ---
Patient had follow up appointment scheduled for 11.15.20 with [facility]NT with Dr. Krueger - patient did attend appointment. Patient had a follow up appointment scheduled for 11.19.[address] Joya at [facility] - patient did attend appointment.
== END 2020-11-14 13:57 | disposition home or self-care (01) ==
PROVIDERS: Emergency Provider Nurse Practitioner Family
DX: S02.2XXA Fracture of nasal bones, initial encounter for closed fracture (principal); S50.01XA Contusion of right elbow, initial encounter; S22.32XA Fracture of one rib, left side, initial encounter for closed fracture; S62.337A Displaced fracture of neck of fifth metacarpal bone, left hand, initial encounter for closed fracture; M25.561 Pain in right knee; M54.5 Low back pain; R29.6 Repeated falls; S01.01XA Laceration without foreign body of scalp, initial encounter; Z87.891 Personal history of nicotine dependence; S60.419A Abrasion of unspecified finger, initial encounter; S32.019A Unspecified fracture of first lumbar vertebra, initial encounter for closed fracture; W19.XXXA Unspecified fall, initial encounter; Z23 Encounter for immunization
CPT/HCPCS: 12002; 29105; 36415; 70450; 71045; 72100; 72125; 73080; 73130; 73562; 80053; 84484; 85025; 85610; 90471; 90714; 93005; 96360; 99284; J7030

== ENCOUNTER → 2020-11-19 15:36 | Outpatient (BNVA) | payer MEDICARE, SELFPAY | PROVIDERS: PCP Emergency Medicine; Referring Provider Emergency Medicine; Visit Provider Orthopaedic Surgery | DX: M79.641 Pain in right hand (principal); M79.642 Pain in left hand; M25.521 Pain in right elbow; Z46.89 Encounter for fitting and adjustment of other specified devices; S62.397D Other fracture of fifth metacarpal bone, left hand, subsequent encounter for fracture with routine healing; X58.XXXD Exposure to other specified factors, subsequent encounter | CPT/HCPCS: 73080; 73130; 97760; L3984 ==

== ENCOUNTER 2020-11-19 16:20 | Outpatient (CLI) | payer MEDICARE, SELFPAY | END 2020-11-19 16:21 | disposition home or self-care (01) | LOC: SPT 16:21 | PROVIDERS: PCP Emergency Medicine; Visit Provider Orthopaedic Surgery | DX: Z46.89 Encounter for fitting and adjustment of other specified devices (principal); S62.397D Other fracture of fifth metacarpal bone, left hand, subsequent encounter for fracture with routine healing; X58.XXXD Exposure to other specified factors, subsequent encounter | CPT/HCPCS: 97760; L3984 ==

== ENCOUNTER 2021-04-09 07:28 | Emergency (ER) | payer MEDICARE, SELFPAY ==
[2021-04-09 07:36] VITALS: BP 135/94; PULSE 106; RESP 18; TEMP 37; O2SAT 96; BMI 25.8
[2021-04-09 07:44] VITALS: BP 135/94; PULSE 107; RESP 18; O2SAT 96
--- NOTE | 2021-04-09 07:50 | ED_ITS ---
HPI - Skin/Abscess/Foreign Bdy General: Chief complaint: Skin/Abscess/Foreign Body Stated complaint: RED SORE AREA ON BACK OF NECK Time Seen by Provider: 04/09/21 07:35 History of Present Illness: HPI narrative: Patient has a reddened area to his left shoulder. Patient states that few days ago he slipped in shower grabbed the faucet when he was slipping and turn it to hot and has resulting burn that is healing on his neck area and shoulder. complaint: other (Burn) Onset (ago): day(s) Tetanus up to date: yes Location: neck and back Severity: mild Severity scale (1-10): 1 Quality: burning Pain Consistency: constant Relieving factors: none Context: none Associated symptoms: Reports no associated symptoms; Deny chills or fever(s) Treatments prior to arrival: none Review of Systems Const: Denies: fever(s) or chills Skin/Breast: Reports: erythema and other (Burn to neck and left shoulder area from hot water in the shower. This hap) Psych: Denies: depression PFSH ED PFSH: Medical History (Updated 04/09/21 @ 07:50 by ARIELLE Rowell) Alcoholism Hematoma Hepatic encephalopathy Liver cirrhosis Recurrent falls Surgical History H/O inguinal hernia repair Family History Denies family history of Clotting disorder Dementia Chronic kidney disease (CKD) Cancer Social History Smoking and tobacco status: never smoked Alcohol intake: current Lives independently: Yes Household members: other Details: He lives alone Housing: House Marital status: Single Marital status details: Not in contact with his children, 2 sisters try to check up on him, sister Marely Barkley from [place] [phone] Physical Exam Const: COMMON NORMALS: no acute distress GENERAL APPEARANCE: cooperative Psych: COMMON NORMALS: mental status grossly normal Skin: OTHER: Patient has second-degree burn with blisters that have gone away and has redness extending from the lower part of his neck over to the left shoulder down to mid back no evidence of infection. Skin is bright red. Course Vital Signs: Vital signs: Vital Signs Temperature 98.6 F 04/09/21 07:36 Pulse Rate 107 H 04/09/21 07:44 Respiratory Rate 18 04/09/21 07:44 Blood Pressure 135/94 04/09/21 07:44 Pulse Oximetry 96 04/09/21 07:44 MDM - Skin/Abscess/Foreign Bdy MDM Narrative: Medical decision making narrative: Second-degree hill to shoulder area. Patient was encouraged to turn temperatures water heater down to keep this from occurring in the future. Discharge Plan Discharge Patient Disposition: Home Clinical Impression: Burn Condition: Stable Prescriptions: New Silvadene 1 % cream 1 applic topical BID PRN (Reason: wound healing) Qty: 50 RF: 0 No Action (DME) Fast Form ulnar gutwerner See Rx Instructions .ROUTE .MEDSUPPLY Qty: 1 RF: 0 cyanocobalamin (vitamin B-12) [Vitamin B-12] 1,000 mcg Tablet 1,000 mcg PO DAILY 30 Days Qty: 30 RF: 1 lisinopril 10 mg Tablet 10 mg PO DAILY 30 Days Qty: 30 RF: 1 multivitamin Tablet 1 tab PO DAILY RF: 0 omeprazole 20 mg Capsule,Delayed Release(Dr/Ec) 20 mg PO DAILY RF: 0 tramadol 50 mg tablet 50 mg PO TID PRN (Reason: pain) Qty: 20 RF: 0 Discharge Orders: Discharge ED (Routine); Ordered 04/09/21 Ordered By: Jeffy Tomas Discharge Diet: Usual diet Discharge Activity: Resume usual activity Patient Instructions: Superficial Burn (ED) Activity Restrictions/Additional Instructions: Follow-up with medical provider as directed. Take medications as prescribed. Return to the ER or your medical provider if condition worsens. Please read and understand discharge instructions. If any questions ask please. Coding Level of Care Code ED Pasteurizing Machine Operator for Nata Fwd Exam Expanded Problem Focused
[2021-04-09 07:54] VITALS: BP 135/94; PULSE 107; RESP 18; O2SAT 96
== END 2021-04-09 07:54 | disposition home or self-care (01) ==
LOC: ER 08:04
PROVIDERS: Emergency Provider Nurse Practitioner Family
DX: T22.252A Burn of second degree of left shoulder, initial encounter (principal); X11.0XXA Contact with hot water in bath or tub, initial encounter
CPT/HCPCS: 99281

== ENCOUNTER 2021-09-24 12:48 | Emergency (ER) | payer MEDICARE, SELFPAY ==
[2021-09-24 13:21] VITALS: BP 102/65; PULSE 99; RESP 16; TEMP 36.6; O2SAT 98; BMI 25.8
[2021-09-24 13:35] VITALS: BP 102/65; PULSE 99; RESP 16; TEMP 36.6; O2SAT 99
--- NOTE | 2021-09-24 13:41 | CT_ITS ---
WS: [id number] CT HEAD TECHNIQUE: Noncontrast CT of the head obtained from the skullbase to the vertex. CLINICAL INFORMATION: dizziness COMPARISON: November 14, 2020 DLP: 1130.[address] scans at [facility] use at least one of these dose optimization techniques: automated e xposure control; mA and/or kV adjustment per patient size (includes targeted exams where dose is matc hed to clinical indication); or iterative reconstruction. FINDINGS: No evidence of intracranial hemorrhage or mass effect. Ventricular system and basal cisterns are wallace nt. Mild small vessel changes with moderate parenchymal volume loss. No extra-axial fluid collections . No evidence of mass or mass effect. Normal das-white differentiation. Mild mucosal thickening in the paranasal sinuses. Mild mucosal thickening LEFT mastoid tip. RIGHT mas toid air cells are well aerated. CT/CT head wo con* [id number] IMPRESSION: 1. No evidence of intracranial hemorrhage or mass effect. 2. Mild small vessel changes. Moderate parenchymal volume loss. 3. No acute intracranial findings.
--- NOTE | 2021-09-24 13:47 | W.ED.DIZZY ---
HPI - Dizziness General: Chief Complaint: Dizziness Stated Complaint: Dizziness and falling, Low BP Time Seen by Provider: 09/24/21 13:30 History of Present Illness: HPI Narrative: Patient is a 71-year-old male who comes to the ED with dizziness. Patient said he has been having this dizziness now for little over 2 weeks. He is been having trouble staying balanced since start of symptoms. Dizziness described more so as feeling off balance. He denies any room spinning. Symptoms are constant all throughout the day for the past couple weeks. history of multiple concussions. Denies any recent head trauma. denies any other symptoms, such as headache, numbness/tingling to extremities or face, weakness to extremities or face, Chest pain, shortness of breath, fever, chills, abdominal pain, nausea/vomiting, bladder or bowel symptoms. Associated symptoms: Denies chest pain, chills, headache(s), nausea, nasal congestion, palpitations or vomiting Associated neuro symptoms: Deny numbness in extremities Review of Systems Const: Denies: fever(s), chills or fatigue Eyes: Denies: change in vision or eye discomfort ENMT: Denies: throat pain, odynophagia, nasal discharge or nasal congestion Card: Denies: chest pain, palpitations, edema, swelling of feet/ankles, dyspnea on exertion or orthopnea Resp: Denies: dyspnea, productive cough or non-productive cough GI: Denies: abdominal pain, nausea, vomiting, diarrhea, constipation or hematochezia : Reports: oliguria; Denies: flank pain, difficulty urinating, dysuria or hematuria Musc: Denies: neck pain, back pain or extremity swelling Skin/Breast: Denies: rash or new lesions Neuro: Reports: difficulty walking (feels like balance is off) and dizziness; Denies: headache(s), numbness in extremities, weakness in extremities or sensory changes PFS ED PFSH: Medical History (Updated 09/25/21 @ 18:46 by JM Verma) Alcoholism Hematoma Hepatic encephalopathy Liver cirrhosis Recurrent falls Surgical History H/O inguinal hernia repair Family History Denies family history of Clotting disorder Dementia Chronic kidney disease (CKD) Cancer Social History Smoking and tobacco status: never smoked Alcohol intake: current Lives independently: Yes Household members: other Details: He lives alone Housing: House Marital status: Single Marital status details: Not in contact with his children, 2 sisters try to check up on him, sister Marely Barkley from [place] [phone] Physical Exam Const: COMMON NORMALS: patient oriented x3 and alert GENERAL APPEARANCE: cooperative HENMT: COMMON NORMALS: normocephalic HEAD & SCALP: normocephalic MOUTH: Normal oral and palatal mucosa present THROAT: posterior oropharynx normal and uvula midline Eye: COMMON NORMALS: Equal, round and reactive pupils present and EOMs intact bilaterally PUPIL: Yes Equal, round and reactive pupils present Neck/C-Spine: COMMON NORMALS: supple GENERAL: Yes normal visual inspection Resp: COMMON NORMALS: normal respiratory effort, No retractions, No use of accessory muscles and clear to auscultation bilaterally AUSCULTATION: clear to auscultation bilaterally Cardio: COMMON NORMALS: regular rate, regular rhythm, S1 normal heart sound present, S2 normal heart sound present, No gallops present (Cardio), No clicks present (Cardio), No murmurs present (Cardio) and Peripheral pulses 2+ throughout RATE: regular rate RHYTHM: regular rhythm HEART SOUNDS: S1 normal heart sound present and S2 normal heart sound present PERIPHERAL PULSES: Peripheral pulses 2+ throughout GI: COMMON NORMALS: Normal to inspection, nondistended, normoactive bowel sounds present, Soft to palpation, non-tender and no masses PALPATION: Yes Soft to palpation : COMMON NORMALS: Yes no CVA tenderness BLADDER/KIDNEY EXAM: Yes no CVA tenderness Back/Pelvis: COMMON NORMALS: no CVA tenderness Extremity: COMMON NORMALS: normal to inspection Neuro: COMMON NORMALS: patient oriented x3, CN's II-XII intact bilaterally, moves all extremities, no focal motor deficits and no sensory deficits noted SENSORIUM/ORIENTATION: Yes alert COORDINATION/BALANCE: [id number] test normal SPEECH: speech normal COORDINATION: [id number] test normal Skin: GENERAL SKIN EXAM: dry skin Course Reevaluation(s): Reevaluation #1: I went in to discuss lab findings with patient. I told him about his elevated creatinine level of 4.2. Patient said he is never had any kidney issues in the past. He does report some recent decreased urine output. Denies any nausea/vomiting or diarrhea. Consultations: Consultation #1: I contacted Dr. Nair told him about patient case. He agreed to have patient admitted and wanted me to get a CT abdomen ordered without contrast. Time: 16:44 Vital Signs: Vital signs: Vital Signs Temperature 98.3 F 09/24/21 18:14 Pulse Rate 109 H 09/24/21 18:27 Respiratory Rate 18 09/24/21 18:14 Blood Pressure 77/59 09/24/21 18:27 Pulse Oximetry 98 09/24/21 18:27 MDM - Dizziness Medical Decision Making Patient is a 71-year-old male comes to the ED with dizziness for the past 2 weeks. Patient says he has been feeling off balance and denies any room spinning. Vitals are stable. Exam findings are benign. White blood cell count 12.4, potassium 6 and creatinine 4.2. Due to patient's potassium and creatinine levels I talked with Dr. Pena about patient case. He agreed patient needs to be admitted for an JEANNETTE. I called Dr. Nair the hospitalist told about patient case and he agreed to have patient admitted. Dr. Pena placed the admitting orders. Lab Data I reviewed the patient's lab results. : 09/24/21 14:08 09/24/21 14:[address] 09/24/21 13:41 IMPRESSION: 1. No evidence of intracranial hemorrhage or mass effect. 2. Mild small vessel changes. Moderate parenchymal volume loss. 3. No acute intracranial findings. Abdomen/Pelvis CT 09/24/21 16:40 IMPRESSION: 1. No acute findings. 2. Chronic appearing L1 compression fracture new compared with 10/18/2019 3. Hiatus hernia. 4. No evidence of hydronephrosis. Laboratory Results WBC 12.4 10^3/uL (4.0-10.0) H 09/24/21 14:08 RBC 4.87 10^6/uL (4.1-5.3) 09/24/21 14:08 Hgb 15.9 g/dL (11.7-16.6) 09/24/21 14:08 Hct 48.0 % (42.0-52.0) 09/24/21 14:08 MCV 98.6 fl (80-94) H 09/24/21 14:08 MCH 32.6 pg (28.0-34.0) 09/24/21 14:08 MCHC 33.1 g/dL (30.0-36.0) 09/24/21 14:08 RDW 13.2 % (12.1-15.1) 09/24/21 14:08 Plt Count 295 10^3/cmm (130-400) 09/24/21 14:08 MPV 9.4 fL (7.4-10.4) 09/24/21 14:08 Neut % (Auto) 73.7 % 09/24/21 14:08 Lymph % (Auto) 17.3 % 09/24/21 14:08 [place] % (Auto) 6.8 % 09/24/21 14:08 Eos % (Auto) 1.3 % 09/24/21 14:08 Baso % (Auto) 0.5 % 09/24/21 14:08 Neut # (Auto) 9.17 10^3/uL (1.8-7.7) H 09/24/21 14:08 Lymph # (Auto) 2.2 10^3/uL (0.8-4.8) 09/24/21 14:08 [place] # (Auto) 0.9 10^3/uL (0.2-0.9) 09/24/21 14:08 Eos # (Auto) 0.2 10^3/uL (0.0-0.8) 09/24/21 14:08 Baso # (Auto) 0.1 10^3/uL (0.0-0.1) 09/24/21 14:08 Nucleated RBC % (auto) 0 % 09/24/21 14:08 Nucleated RBCs # 0.0 /100WBC 09/24/21 14:08 Sodium 138 mmol/L (136-145) 09/24/21 14:08 Potassium 6.0 mmol/L (3.5-5.1) H 09/24/21 14:08 Chloride 102 mmol/L (98-107) 09/24/21 14:08 Carbon Dioxide 23 mmol/L (22-29) 09/24/21 14:08 Anion Gap 19.0 (5-19) 09/24/21 14:08 BUN 59 mg/dL (8-23) H 09/24/21 14:08 Creatinine 4.2 mg/dL (0.7-1.2) H 09/24/21 14:08 GFR Calculation Not Reportable 09/24/21 14:08 Glucose 106 mg/dL (65-115) 09/24/21 14:08 Calculated Osmolality 303 mOsm/kg (285-295) H 09/24/21 14:08 Calcium 10.9 mg/dL (8.5-10.5) H 09/24/21 14:08 Urine Color Yellow (Yellow) 09/24/21 15:20 Urine Appearance Clear (CLEAR) 09/24/21 15:20 Urine pH 5 (5-7) 09/24/21 15:20 Ur Specific [place] 1.025 (1.005-1.030) 09/24/21 15:20 Urine Protein Neg (Negative) 09/24/21 15:20 Urine Glucose (UA) Norm (Normal) 09/24/21 15:20 Urine Ketones Negative (Negative) 09/24/21 15:20 Urine Blood Neg (Negative) 09/24/21 15:20 Urine Nitrate Negative (Negative) 09/24/21 15:20 Urine Bilirubin 1+ (Negative) H 09/24/21 15:20 Urine Urobilinogen Norm mg/dL (Negative) 09/24/21 15:20 Ur Leukocyte Esterase Negative (Negative) 09/24/21 15:20 EKG Data EKG 1: EKG interpretation date: 09/24/21 Interpretation: Normal sinus rhythm, 90 bpm, no ST segment elevation or depression seen. Discharge Plan Discharge Patient Disposition: Admitted As Inpatient Clinical Impression: JEANNETTE (acute kidney injury) Condition: Stable Prescriptions: No Action cyanocobalamin (vitamin B-12) [Vitamin B-12] 1,000 mcg Tablet 1,000 mcg PO DAILY 30 Days Qty: 30 1RF lisinopril 10 mg Tablet 10 mg PO DAILY 30 Days Qty: 30 1RF multivitamin Tablet 1 tab PO DAILY 0RF omeprazole 20 mg Capsule,Delayed Release(Dr/Ec) 20 mg PO DAILY 0RF Maxzide-25mg 37.5-25 mg tablet 1 tab PO DAILY 0RF Coding Level of Care Code ED Customer Retention Representative for Chg Fwd Exam Comprehensive
[2021-09-24 14:17] LABS: Basophils # 0.1 10^3/uL (0.0-0.1); Basophils % 0.5 %; Eosinophils # 0.2 10^3/uL (0.0-0.8); Eosinophils % 1.3 %; Hemoglobin 15.9 g/dL (11.7-16.6); Lymphocytes # 2.2 10^3/uL (0.8-4.8); Lymphocytes % 17.3 %; Mean Corpuscular HGB Conc 33.1 g/dL (30.0-36.0); Mean Corpuscular Hemoglobin 32.6 pg (28.0-34.0); Mean Corpuscular Volume 98.6 fl (80-94); Mean Platelet Volume 9.4 fL (7.4-10.4); Monocytes # 0.9 10^3/uL (0.2-0.9); Monocytes % 6.8 %; Neutrophils # 9.17 10^3/uL (1.8-7.7); Neutrophils % 73.7 %; Nucleated Red Blood Cells % 0 %; Platelet Count 295 10^3/cmm (130-400); Red Blood Count 4.87 10^6/uL (4.1-5.3); Red Cell Distribution Width 13.2 % (12.1-15.1); White Blood Count 12.4 10^3/uL (4.0-10.0)
[2021-09-24 14:40] LABS: Blood Urea Nitrogen 59 mg/dL (8-23); Calcium 10.9 mg/dL (8.5-10.5); Carbon Dioxide 23 mmol/L (22-29); Chloride 102 mmol/L (98-107); Glucose 106 mg/dL (65-115); Osmolality Calculated 303 mOsm/kg (285-295); Sodium 138 mmol/L (136-145)
--- NOTE | 2021-09-24 14:52 | ECG_ITS ---
[facility] Test Date: 2021-09-24 Pat Name: Canelo Lara Department: Room: Gender: Male Acting Instructor: : 1950 Requested By: Ivan Diaz Order Number: [id number] Mata MD: Radha Dickens M.D. Measurements Intervals Spicer Rate: 98 P: 63 OK: 172 QRS: -53 QRSD: 134 T: 33 QT: 343 QTc: 438 Interpretive Statements SINUS RHYTHM RIGHT BUNDLE BRANCH BLOCK [120+ ms QRS DURATION, UPRIGHT V1, 40+ ms S IN I/aVL/V4/V5/V6] LEFT ANTERIOR FASCICULAR BLOCK [QRS AXIS <= -45, QR IN I, RS IN II] Compared to ECG 11/14/2020 11:27:29 Left anterior fascicular block now present Sinus tachycardia no longer present Electronically Signed On 09-24-2021 21:21:59 CHILD SUPPORT INVESTIGATOR by Radha Dickens M.D. [id number]
[2021-09-24] MEDS: sodium chloride 0.9% 1,000 ML 999 ML IV (15:27)
[2021-09-24] MEDS: calcium gluconate 0.9% NaCL 1 GM/50 ML PREMIX IV ×2 (15:28→17:54)
--- NOTE | 2021-09-24 16:40 | CTR_ITS ---
PROCEDURE INFORMATION: Exam: CT Abdomen And Pelvis Without Contrast Exam date and time: 09/24/2021 4:40 PM Age: 71 years old Clinical indication: Abnormal findings; Abnormal lab test; Abnormal kidney function lab tests; Patient HX: Decreased urine output with elevated creatinine; Additional info: Elevated creatinine with decreased urine output TECHNIQUE: Imaging protocol: Computed tomography of the abdomen and pelvis without contrast. Radiation optimization: All CT scans at this facility use at least one of these dose optimization techniques: automated exposure control; mA and/or kV adjustment per patient size (includes targeted exams where dose is matched to clinical indication); or iterative reconstruction. COMPARISON: CT chest abd pel w con* 10/18/2019 7:38 PM RADIATION DOSE METRICS: Total DLP (mGy-cm): 1517.97 FINDINGS: Lungs: Lung bases are clear. Diaphragm: A moderate hiatal hernia is present. Liver: There is no focal abnormality within the liver. Gallbladder and bile ducts: The gallbladder is normal. Pancreas: The pancreas is normal. Spleen: The spleen is normal. Adrenal glands: The adrenal glands are normal. Kidneys and ureters: The kidneys are normal. There is no evidence of hydronephrosis. There is no evidence of renal or ureteral calcifications. Stomach and bowel: There is no evidence of colitis/diverticulitis. Appendix: There is an appendicoliths in the distal appendix not changed from 10/18/2019. There is no specific finding for appendicitis in the appearance of the appendix is unchanged from previous. Intraperitoneal space: Unremarkable. No free air. No significant fluid collection. Vasculature: Unremarkable. No abdominal aortic aneurysm. Lymph nodes: Unremarkable. No enlarged lymph nodes. Urinary bladder: Unremarkable as visualized. Reproductive: The prostate demonstrates moderate nonspecific enlargement. The seminal vesicles are normal. Bones/joints: There is moderate wedging of the superior endplate of L1. This is chronic in appearance but new compared with 10/18/2019. Soft tissues: There are postsurgical changes of previous hernia repair. CT/CT abdomen pelvis wo con [id number] IMPRESSION: 1. No acute findings. 2. Chronic appearing L1 compression fracture new compared with 10/18/2019 3. Hiatus hernia. 4. No evidence of hydronephrosis.
[2021-09-24 16:42] LABS: Add Urine Microscopic? NO; Charge for UA Resulting for Rev
[2021-09-24 17:04] LABS: Bilirubin Urine 1+ (Negative); Blood Urine Neg (Negative); Glucose Urine UA Norm (Normal); Ketones Urine Negative (Negative); Leukocyte Esterase Urine Negative (Negative); Nitrate Urine Negative (Negative); Protein Urine Neg (Negative); Specific Gravity, Urine 1.025 (1.005-1.030); Urine Appearance Clear (CLEAR); Urine Color Yellow (Yellow); Urobilinogen Urine Norm (Negative); pH Urine 5 (5-7)
[2021-09-24] MEDS: insulin regular-human 100 units/1 mL 10 UNIT IVP (18:00)
--- NOTE | 2021-09-24 18:10 | P.HP_ITS ---
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 Medications/Allergies Home Medications Medication Instructions Recorded Confirmed Last Taken Type cyanocobalamin (vitamin B-12) 1,000 mcg PO DAILY 30 Days #30 tab 11/01/19 09/24/21 Unknown Rx 1,000 mcg tablet (Vitamin B-12) lisinopril 10 mg tablet 10 mg PO DAILY 30 Days #30 tab 11/01/19 09/24/21 09/24/21 Rx multivitamin 1 tab PO DAILY 11/14/20 09/24/21 09/24/21 History omeprazole 20 mg capsule,delayed 20 mg PO DAILY 11/14/20 09/24/21 09/24/21 History release triamterene 37.5 1 tab PO DAILY 09/24/21 09/24/21 Unknown History mg-hydrochlorothiazide 25 mg tablet (Maxzide-25mg) Allergies Allergy/AdvReac Type Severity Reaction Status Date / Time No Known Allergies Allergy Verified 02/28/21 10:05 PFSH Acute PFSH: Medical History Alcoholism Hematoma Hepatic encephalopathy Liver cirrhosis Recurrent falls Surgical History H/O inguinal hernia repair Family History Denies family history of Clotting disorder Dementia Chronic kidney disease (CKD) Cancer Social History Smoking and tobacco status: never smoked Alcohol intake: current Lives independently: Yes Household members: other Details: He lives alone Housing: House Marital status: Single Marital status details: Not in contact with his children, 2 sisters try to check up on him, sister Marely Barkley from [place] [phone] Vitals/I&O/Wt Last Vital Signs Temp 97.8 F 09/24/21 13:35 Pulse 99 09/24/21 13:35 Resp 16 09/24/21 13:35 BP 102/65 09/24/21 13:35 Pulse Ox 99 09/24/21 13:35 Weight last 48 hrs Weight 77.111 kg Data : 09/24/21 14:08 09/24/21 14:08 Coding Level of Care Code Acute X Ray Equipment Mechanic for Nata Ugarte
[2021-09-24 18:14] VITALS: BP 74/52; PULSE 109; RESP 18; TEMP 36.8; O2SAT 98
[2021-09-24 18:27] VITALS: BP 77/59; PULSE 109; O2SAT 98
--- NOTE | 2021-09-24 18:50 | PC.NURSE ---
Pt left AMA, IV dc'd. Dr. Pena came to his room & had a lengthy discussion on risks of leaving AMA. Lft unit & called cab for transport home. I did discuss w him importance of staying d/t having had insulin & he should eat as soon as he gets home.
--- NOTE | 2021-09-24 19:03 | PC.NURSE ---
Sister notified of AMA by Dr. Nair.
== END 2021-09-24 18:50 | disposition admitted as inpatient to this hospital (09) ==
PROVIDERS: Emergency Provider Physician Assistant
DX: N17.9 Acute kidney failure, unspecified (principal)
CPT/HCPCS: 70450; 74176; 80048; 81003; 85025; 93005; 96365; 96366; 96375; 99284; J0610; J1815; J7030

== ENCOUNTER 2021-09-26 07:19 | Emergency (ER) | payer MEDICARE, SELFPAY ==
[2021-09-26 07:24] VITALS: BP 113/86; PULSE 108; RESP 15; O2SAT 99; BMI 26.6
--- NOTE | 2021-09-26 07:44 | ED_ITS ---
HPI - GI Bleed General: Chief complaint: GI Bleed Stated complaint: Bleeding Time Seen by Provider: 09/26/21 07:31 History of Present Illness: Patient presents with intermittent bleeding from his rectum over the last 4 to 5 days. Patient says he has hemorrhoids and he said to be worse. Complains about pain in his rectal area when he wipes. Says he occasionally drinks alcohol. Has had a history of alcohol abuse. Patient denies abdominal discomfort, fever, nausea vomiting. I did ask him why he checked out the ER the other day when he was going to be admitted he said he got tired of waiting. Said he has been drinking more fluids not eating much. Associated symptoms: Denies abdominal pain, chills, fever(s), headache(s), nausea, rash or vomiting Review of Systems Const: Denies: fever(s), chills or body aches Eyes: Denies: eye discomfort ENMT: Denies: throat pain Card: Denies: chest pain Resp: Denies: dyspnea GI: Reports: rectal itching and hematochezia; Denies: abdominal pain, nausea or vomiting Skin/Breast: Reports: erythema and skin tenderness (Around rectum); Denies: rash Neuro: Denies: headache(s) Psych: Denies: depression or suicidal ideation [facility] ED PFSH: Medical History (Updated 09/26/21 @ 08:48 by ARIELLE Rowell) Alcoholism Hematoma Hepatic encephalopathy Liver cirrhosis Recurrent falls Surgical History H/O inguinal hernia repair Family History Denies family history of Clotting disorder Dementia Chronic kidney disease (CKD) Cancer Social History Smoking and tobacco status: never smoked Alcohol intake: current Lives independently: Yes Household members: other Details: He lives alone Housing: House Marital status: Single Marital status details: Not in contact with his children, 2 sisters try to check up on him, sister Marely Barkley from [place] [phone] Physical Exam Const: COMMON NORMALS: no acute distress, patient oriented x3 and alert HENMT: COMMON NORMALS: normocephalic HEAD & SCALP: normocephalic Eye: COMMON NORMALS: EOMs intact bilaterally Neck/C-Spine: COMMON NORMALS: no JVD Resp: COMMON NORMALS: normal respiratory effort and No use of accessory muscles Cardio: COMMON NORMALS: no JVD GI: RECTAL EXAM: Yes Visual inspection abnormal, Yes hemorrhoids (Has 2 thrombosed hemorrhoids) and Yes Excoriation present (GI) (Large area softball in size around the rectum, stool present on skin and un) Extremity: COMMON NORMALS: normal to inspection and full ROM Neuro: COMMON NORMALS: patient oriented x3 SENSORIUM/ORIENTATION: Yes alert Psych: COMMON NORMALS: mental status grossly normal Skin: COMMON NORMALS: no rashes or lesions noted GENERAL SKIN EXAM: no rashes or lesions noted Course Vital Signs: Vital signs: Vital Signs Pulse Rate 108 H 09/26/21 07:53 Respiratory Rate 15 09/26/21 07:53 Blood Pressure 113/86 09/26/21 07:53 Pulse Oximetry 99 09/26/21 07:53 MDM - GI Bleed Medical Decision Making Patient presents with bleeding from hemorrhoids, anal itching and pain. Rectal exam revealed excoriation of the rectal area from poor hygiene habits. Does have a couple thrombosed hemorrhoids. No masses or rectal bleeding noted. Patient was seen last week here in the ER with acute kidney injury and creatinine was 4.1 now that has come down to 2.3 BUN still slightly high at 47. Prescription provided, instructions on better hygiene and the need to follow-up next week with his primary care provider. Lab Data : 09/26/21 07:58 09/26/21 07:58 Laboratory Results WBC 8.5 10^3/uL (4.0-10.0) 09/26/21 07:58 RBC 4.42 10^6/uL (4.1-5.3) 09/26/21 07:58 Hgb 14.1 g/dL (11.7-16.6) 09/26/21 07:58 Hct 43.0 % (42.0-52.0) 09/26/21 07:58 MCV 97.3 fl (80-94) H 09/26/21 07:58 MCH 31.9 pg (28.0-34.0) 09/26/21 07:58 MCHC 32.8 g/dL (30.0-36.0) 09/26/21 07:58 RDW 12.8 % (12.1-15.1) 09/26/21 07:58 Plt Count 242 10^3/cmm (130-400) 09/26/21 07:58 MPV 9.7 fL (7.4-10.4) 09/26/21 07:58 Neut % (Auto) 62.5 % 09/26/21 07:58 Lymph % (Auto) 22.1 % 09/26/21 07:58 Cannon % (Auto) 11.4 % 09/26/21 07:58 Eos % (Auto) 2.9 % 09/26/21 07:58 Baso % (Auto) 0.7 % 09/26/21 07:58 Neut # (Auto) 5.30 10^3/uL (1.8-7.7) 09/26/21 07:58 Lymph # (Auto) 1.9 10^3/uL (0.8-4.8) 09/26/21 07:58 Cannon # (Auto) 1.0 10^3/uL (0.2-0.9) H 09/26/21 07:58 Eos # (Auto) 0.3 10^3/uL (0.0-0.8) 09/26/21 07:58 Baso # (Auto) 0.1 10^3/uL (0.0-0.1) 09/26/21 07:58 Nucleated RBC % (auto) 0 % 09/26/21 07:58 Nucleated RBCs # 0.0 /100WBC 09/26/21 07:58 Sodium 137 mmol/L (136-145) 09/26/21 07:58 Potassium 4.9 mmol/L (3.5-5.1) 09/26/21 07:58 Chloride 103 mmol/L (98-107) 09/26/21 07:58 Carbon Dioxide 22 mmol/L (22-29) 09/26/21 07:58 Anion Gap 16.9 (5-19) 09/26/21 07:58 BUN 47 mg/dL (8-23) H 09/26/21 07:58 Creatinine 2.3 mg/dL (0.7-1.2) H 09/26/21 07:58 GFR Calculation Not Reportable 09/26/21 07:58 Glucose 104 mg/dL (65-115) 09/26/21 07:58 Calculated Osmolality 297 mOsm/kg (285-295) H 09/26/21 07:58 Calcium 9.9 mg/dL (8.5-10.5) 09/26/21 07:58 Total Bilirubin 0.8 mg/dL (0.15-1.2) 09/26/21 07:58 AST 18 U/L (0-40) 09/26/21 07:58 ALT 14 U/L (0-41) 09/26/21 07:58 Alkaline Phosphatase 86 IU/L (40-130) 09/26/21 07:58 Total Protein 7.3 g/dL (6.6-8.7) 09/26/21 07:58 Albumin 3.9 g/dL (3.5-5.2) 09/26/21 07:58 Globulin 3.4 g/dL (1.3-4.6) 09/26/21 07:58 Discharge Plan Discharge Patient Disposition: Home Clinical Impression: Hemorrhoids, Bacterial skin infection of anus, JEANNETTE (acute kidney injury) Condition: Stable Prescriptions: New Proctofoam 1 % foam 1 applic [place] BID Qty: 15 0RF mupirocin calcium 2 % cream 1 applic topical BID Qty: 30 0RF Flagyl 500 mg tablet 500 mg PO BID 7 Days Qty: 14 0RF No Action multivitamin Tablet 1 tab PO DAILY 0RF omeprazole 20 mg Capsule,Delayed Release(Dr/Ec) 20 mg PO DAILY 0RF triamterene-hydrochlorothiazid [Maxzide-25mg] 37.5-25 mg tablet 1 tab PO DAILY 0RF Anucort-HC 25 mg suppository 25 mg [place] BID PRN (Reason: Hemorrhoids) 0RF ibuprofen 200 mg Tablet 400 - 600 mg PO Q6H PRN (Reason: Pain) 0RF lisinopril 10 mg tablet 10 mg PO QAM 0RF Discharge Orders: Discharge ED (Routine); Ordered 09/26/21 Ordered By: Jeffy Tomas Discharge Diet: Usual diet Discharge Activity: Resume usual activity Patient Instructions: Anal Itching (ED), Thrombosed Hemorrhoid (ED) Activity Restrictions/Additional Instructions: Follow-up with medical provider as directed. Take medications as prescribed. Return to the ER or your medical provider if condition worsens. Please read and understand discharge instructions. If any questions ask please. Use baby wipes to help clean rectal area after having a bowel movement. Make sure you follow- up with [facility] next week for recheck of your skin in your rectal area. If needed take [id number] stool laxative to prevent hard, firm bowel movement. Drink plenty water. Coding Level of Care Code ED Branch Library Clerk for Chg Fwd Exam Comprehensive
[2021-09-26 07:53] VITALS: BP 113/86; PULSE 108; RESP 15; O2SAT 99
[2021-09-26 08:08] LABS: Basophils # 0.1 10^3/uL (0.0-0.1); Basophils % 0.7 %; Eosinophils # 0.3 10^3/uL (0.0-0.8); Eosinophils % 2.9 %; Hemoglobin 14.1 g/dL (11.7-16.6); Lymphocytes # 1.9 10^3/uL (0.8-4.8); Lymphocytes % 22.1 %; Mean Corpuscular HGB Conc 32.8 g/dL (30.0-36.0); Mean Corpuscular Hemoglobin 31.9 pg (28.0-34.0); Mean Corpuscular Volume 97.3 fl (80-94); Mean Platelet Volume 9.7 fL (7.4-10.4); Monocytes % 11.4 %; Neutrophils % 62.5 %; Nucleated Red Blood Cells % 0 %; Platelet Count 242 10^3/cmm (130-400); Red Blood Count 4.42 10^6/uL (4.1-5.3); Red Cell Distribution Width 12.8 % (12.1-15.1); White Blood Count 8.5 10^3/uL (4.0-10.0)
[2021-09-26 08:27] LABS: Alanine Aminotransferase 14 U/L (0-41); Albumin Level 3.9 g/dL (3.5-5.2); Alkaline Phosphatase 86 IU/L (40-130); Aspartate Amino Transferase 18 U/L (0-40); Blood Urea Nitrogen 47 mg/dL (8-23); Calcium 9.9 mg/dL (8.5-10.5); Carbon Dioxide 22 mmol/L (22-29); Chloride 103 mmol/L (98-107); Globulin 3.4 g/dL (1.3-4.6); Glucose 104 mg/dL (65-115); Osmolality Calculated 297 mOsm/kg (285-295); Sodium 137 mmol/L (136-145); Total Bilirubin 0.8 mg/dL (0.15-1.2); Total Protein 7.3 g/dL (6.6-8.7)
[2021-09-26 08:42] LABS: Anion Gap 16.9 (5-19); Potassium 4.9 mmol/L (3.5-5.1)
[2021-09-26 09:51] VITALS: BP 127/81; PULSE 99; RESP 16; O2SAT 98
== END 2021-09-26 09:20 | disposition home or self-care (01) ==
PROVIDERS: Emergency Provider Nurse Practitioner Family
DX: K64.9 Unspecified hemorrhoids (principal); A48.8 Other specified bacterial diseases; N17.9 Acute kidney failure, unspecified
CPT/HCPCS: 36415; 80053; 85025; 99283

== ENCOUNTER 2022-02-11 22:06 | Emergency (ER) | payer MEDICARE, SELFPAY ==
--- NOTE | 2022-02-11 22:09 | CTR_ITS ---
PROCEDURE INFORMATION: Exam: CT Cervical Spine Without Contrast Exam date and time: 02/11/2022 10:49 PM Age: 71 years old Clinical indication: Injury or trauma; Fall; Blunt trauma; Patient HX: Patient fell and hit back of head on ground. Lac to back of head. C/O pain. TECHNIQUE: Imaging protocol: Computed tomography of the cervical spine without contrast. Radiation optimization: All CT scans at this facility use at least one of these dose optimization techniques: automated exposure control; mA and/or kV adjustment per patient size (includes targeted exams where dose is matched to clinical indication); or iterative reconstruction. COMPARISON: CT cervical spin wo con* [id number] 11/14/2020 9:17 AM RADIATION DOSE METRICS: Total DLP (mGy-cm): 306.27 FINDINGS: Bones/joints: No anterior wedging deformity. No acute lucent fracture lines visualized. Spondylitic changes are most prominent at the C4-C5 through C6-C7 levels. Cervical facet arthropathy is noted. No destructive osseous lesions are seen. Discs/Spinal canal/Neural foramina: No severe central canal stenosis is demonstrated by CT. Neural foraminal stenosis is seen at C2-C3 on the left, eccentric to the right at C4-C5, bilaterally at C5-C6 and C6-C7. Lungs: Lung apices are normal. Soft tissues: Unremarkable. CT/CT cervical spin wo con* [id number] IMPRESSION: 1. No acute cervical spinal injury demonstrated by CT. 2. Degenerative changes of the cervical spine.
--- NOTE | 2022-02-11 22:09 | CTR_ITS ---
PROCEDURE INFORMATION: Exam: CT Head Without Contrast Exam date and time: 02/11/2022 10:46 PM Age: 71 years old Clinical indication: Injury or trauma; Fall; Blunt trauma (contusions or hematomas); Patient HX: Patient fell and hit back of head on ground. Lac to back of head. C/O pain. ; Additional info: Head injury TECHNIQUE: Imaging protocol: Computed tomography of the head without contrast. Radiation optimization: All CT scans at this facility use at least one of these dose optimization techniques: automated exposure control; mA and/or kV adjustment per patient size (includes targeted exams where dose is matched to clinical indication); or iterative reconstruction. COMPARISON: CT head wo con* [id number] 09/24/2021 1:56 PM RADIATION DOSE METRICS: Total DLP (mGy-cm): 1178.18 FINDINGS: Brain: There are global involutional changes of the brain which are in keeping with the patient's age. Periventricular hypodensities are nonspecific but most likely reflect chronic microvascular ischemic disease. Atrophic changes of the mesial temporal lobe which appear disproportionate to the remainder of the brain. Correlate with clinical and historic information. There is no acute intracranial hemorrhage or abnormal extra-axial fluid collection identified. There is no intracranial mass effect or shift of midline structures. The das-white differentiation is preserved throughout. There is no sulcal effacement. The basilar cisterns are open. Cerebral ventricles: The ventricles are enlarged but do not appear disproportionate to the sulci. No hydrocephalus or ventricular effacement. Paranasal sinuses: There is mild sinus mucosal disease, with no air-fluid level identified. Mastoid air cells: There is minimal partial opacification of the left mastoid air cells. Bones/joints: No calvarial fracture or destructive osseous lesions are seen. Bilateral nasal bone fractures are chronic. Soft tissues: Right posterior parietal scalp injury. CT/CT head wo con* [id number] IMPRESSION: 1. No acute intracranial pathology identified by CT. 2. Chronic findings, as above.
[2022-02-11 22:11] VITALS: BP 104/78; PULSE 89; PULSE 90; RESP 18; TEMP 36.8; O2SAT 95; BMI 25.8
--- NOTE | 2022-02-11 22:19 | W.ED.FALL ---
HPI - Fall General: Chief Complaint: Fall Stated Complaint: FALL/ETOH Time Seen by Provider: 02/11/22 22:06 Source: patient Mode of arrival: ambulatory Limitations: no limitations History of Present Illness: 71-year-old male who had been drinking tonight at a bar patient had a ride home when he got the car and fell backwards hit his head. He does have bleeding from his posterior head he denies any LOC but he is unsure if he actually passed out or not. He has a mild headache denies any other injuries from his fall. He rates his pain a 4 out of 10 currently. Associated symptoms-after fall: Reports headache(s) and neck pain; Denies abdominal pain or chest pain Review of Systems Const: Denies: fever(s), chills, body aches or change in appetite Eyes: Denies: blurry vision or eye discomfort ENMT: Denies: throat pain or dental pain Card: Denies: chest pain Resp: Denies: dyspnea GI: Denies: abdominal pain, nausea, vomiting or diarrhea : Denies: dysuria Musc: Reports: neck pain; Denies: back pain Skin/Breast: Denies: rash Neuro: Reports: headache(s) Psych: Denies: depression Angel/Lymph: Denies: easy bruising All/Imm: Denies: urticaria PFSH ED PFSH: Medical History (Updated 02/11/22 @ 23:44 by Siddhartha Nguyen MD) Alcoholism Hematoma Hepatic encephalopathy Liver cirrhosis Recurrent falls Surgical History H/O inguinal hernia repair Family History Denies family history of Clotting disorder Dementia Chronic kidney disease (CKD) Cancer Social History Smoking and tobacco status: never smoked Alcohol intake: current Lives independently: Yes Household members: other Details: He lives alone Housing: House Marital status: Single Marital status details: Not in contact with his children, 2 sisters try to check up on him, sister Marely Barkley from [place] [phone] Physical Exam Const: COMMON NORMALS: no acute distress, patient oriented x3 and healthy appearing GENERAL APPEARANCE: odor of alcohol detected HENMT: COMMON NORMALS: normocephalic; head/scalp not atraumatic (Abrasion to posterior scalp) HEAD & SCALP: normocephalic; not atraumatic (Abrasion to posterior scalp) Eye: COMMON NORMALS: Equal, round and reactive pupils present and EOMs intact bilaterally PUPIL: Yes Equal, round and reactive pupils present Neck/C-Spine: COMMON NORMALS: full ROM and supple Chest: COMMONS NORMALS: normal inspection of the chest and normal palpation of entire chest wall Resp: COMMON NORMALS: normal respiratory effort, No retractions, No use of accessory muscles and clear to auscultation bilaterally AUSCULTATION: clear to auscultation bilaterally Cardio: COMMON NORMALS: regular rate, regular rhythm and No murmurs present (Cardio) RATE: regular rate RHYTHM: regular rhythm GI: COMMON NORMALS: Normal to inspection, nondistended, normoactive bowel sounds present, Soft to palpation, non-tender and no masses PALPATION: Yes Soft to palpation Extremity: COMMON NORMALS: normal to inspection and full ROM Neuro: COMMON NORMALS: patient oriented x3, moves all extremities and no focal motor deficits Psych: COMMON NORMALS: mental status grossly normal, Normal thought process present and cooperative THOUGHT PROCESS: Normal thought process present Skin: COMMON NORMALS: no rashes or lesions noted and no wounds GENERAL SKIN EXAM: no rashes or lesions noted Course Vital Signs: Vital signs: Vital Signs Temperature 98.3 F 02/11/22 22:11 Pulse Rate 85 02/11/22 23:30 Respiratory Rate 18 02/11/22 22:11 Blood Pressure 128/92 02/11/22 23:30 Pulse Oximetry 96 02/11/22 23:30 MDM - Fall Medical Decision Making Patient presents here with a fall along with alcohol intoxication he does have a closed head injury his head CT here is normal does have an abrasion to his head no laceration he is stable for discharge is to follow-up with PCP and return if worsening. Lab Data Radiology Impressions Head CT 02/11/22 22:09 IMPRESSION: 1. No acute intracranial pathology identified by CT. 2. Chronic findings, as above. Discharge Plan Discharge Patient Disposition: Home Clinical Impression: Closed head injury, Alcohol intoxication Condition: Stable Prescriptions: No Action multivitamin Tablet 1 tab PO DAILY 0RF omeprazole 20 mg Capsule,Delayed Release(Dr/Ec) 20 mg PO DAILY 0RF triamterene-hydrochlorothiazid [Maxzide-25mg] 37.5-25 mg tablet 1 tab PO DAILY 0RF Proctofoam 1 % foam 1 applic RI BID Qty: 15 0RF mupirocin calcium 2 % cream 1 applic topical BID Qty: 30 0RF Anucort-HC 25 mg suppository 25 mg RI BID PRN (Reason: Hemorrhoids) 0RF ibuprofen 200 mg Tablet 400 - 600 mg PO Q6H PRN (Reason: Pain) 0RF lisinopril 10 mg tablet 10 mg PO QAM 0RF Discharge Orders: Discharge ED (Routine); Ordered 02/11/22 Ordered By: Siddhartha Nguyen Referrals: Nolvia Sam [Primary Care Provider] - Discharge Diet: Advance as tolerated Discharge Activity: Resume usual activity Patient Instructions: Head Injury (ED) Coding Level of Care Code ED Cottonseed Meat Presser for Nata Fwestella Exam Comprehensive
[2022-02-11 22:30] VITALS: BP 106/66; PULSE 90; O2SAT 94
[2022-02-11 23:30] VITALS: BP 128/92; PULSE 85; O2SAT 96
[2022-02-11 23:48] VITALS: BP 142/98; PULSE 90; RESP 18; O2SAT 96
== END 2022-02-11 23:50 | disposition home or self-care (01) ==
PROVIDERS: Emergency Provider Emergency Medicine
DX: S00.01XA Abrasion of scalp, initial encounter (principal); W19.XXXA Unspecified fall, initial encounter; F10.129 Alcohol abuse with intoxication, unspecified; Y90.9 Presence of alcohol in blood, level not specified
CPT/HCPCS: 70450; 72125; 99283

== ENCOUNTER 2022-02-18 12:45 | Emergency (ER) | payer MEDICARE, SELFPAY ==
[2022-02-18 12:49] VITALS: BP 133/85; PULSE 91; RESP 18; TEMP 36.6; O2SAT 99
--- NOTE | 2022-02-18 16:24 | W.ED.DIZZY ---
HPI - Dizziness General: Chief Complaint: Dizziness Stated Complaint: Dizzy, fall Time Seen by Provider: 02/18/22 16:07 Source: patient Mode of arrival: ambulatory (with cane) Limitations: no limitations History of Present Illness: HPI Narrative: Patient is a 71-year-old male here for complaints of dizziness. Patient states he has had chronic dizziness for many years. He states it stems from a previous head injury. He states he normally sees his PCP Dr. Granados for this. He states he has been treated with meclizine 25 mg every 4-6 hours but states this medication minimally helps. He does state at one point Dr. Granados was giving him shots for this but is not sure of the name of the medication. He also complains of tinnitus. He states this is also chronic. He saw Dr. Krueger on 02/2021 for complaints of tinnitus. Dr. Krueger had requested an audiogram and then following up after this but patient states he does not believe he ever had this completed. Patient does not have any new complaints today. He states he was going to go to his PCP office but could not get a hold of them so decided to come to the ED. MD elicited complaint: dizziness Onset (ago): year(s) History of similar symptoms: Yes Associated symptoms: Reports change in hearing and tinnitus; Denies chest pain, chills, ear discharge, headache(s), malaise, nausea, nasal congestion, palpitations, syncope or vomiting Associated neuro symptoms: Deny numbness in extremities Stroke scale total: 0 Review of Systems Const: Denies: fever(s), chills, body aches, fatigue or malaise Eyes: Denies: change in vision, blurry vision or photophobia ENMT: Reports: change in hearing and tinnitus; Denies: throat pain, odynophagia, ear or mastoid pain, ear discharge, nasal discharge, nasal congestion or sinus pain Card: Denies: chest pain, palpitations, irregular heart rhythm, lightheadedness, syncope, pre-syncope or dyspnea on exertion Resp: Denies: dyspnea, productive cough or pain on inspiration GI: Denies: abdominal pain, nausea, vomiting, heartburn or diarrhea : Denies: difficulty urinating or dysuria Musc: Denies: neck pain, back pain or joint pain Skin/Breast: Denies: rash Neuro: Reports: dizziness; Denies: headache(s), numbness in extremities, weakness in extremities, sensory changes, behavioral changes, difficulty communicating thoughts or seizure-like activity PFSH ED PFSH: Medical History (Updated 02/19/22 @ 00:00 by ) Alcoholism Hematoma Hepatic encephalopathy Liver cirrhosis Recurrent falls Surgical History H/O inguinal hernia repair Family History Denies family history of Clotting disorder Dementia Chronic kidney disease (CKD) Cancer Social History Smoking and tobacco status: never smoked Alcohol intake: current Lives independently: Yes Household members: other Details: He lives alone Housing: House Marital status: Single Marital status details: Not in contact with his children, 2 sisters try to check up on him, sister Marely Barkley from [place] [phone] Physical Exam Const: COMMON NORMALS: no acute distress, patient oriented x3, no limitations and alert GENERAL APPEARANCE: cooperative ORIENTATION/CONSCIOUSNESS: Yes awake, Yes oriented to person, Yes oriented to place and Yes oriented to time HENMT: COMMON NORMALS: normocephalic, atraumatic, external ears normal, EAC's normal, TM's normal bilaterally and Normal external nose present HEAD & SCALP: normal to inspection, normocephalic and atraumatic FACE & SINUS: normal facial exam NOSE: Normal external nose present EXTERNAL EAR: Yes external ears normal, Yes mastoids normal and Yes no periauricular adenopathy EXTERNAL AUDITORY CANAL: EAC's normal TYMPANIC MEMBRANE: TM's normal bilaterally Eye: GENERAL EYE: appearance normal, both eyes and all related structures Neck/C-Spine: COMMON NORMALS: full ROM, no lymphadenopathy and no meningeal signs Resp: COMMON NORMALS: normal respiratory effort and clear to auscultation bilaterally AUSCULTATION: clear to auscultation bilaterally Cardio: COMMON NORMALS: regular rate and regular rhythm RATE: regular rate RHYTHM: regular rhythm Extremity: COMMON NORMALS: normal to inspection GENERAL: Yes normal exam except as noted Neuro: ROSA COMA SCALE: document GCS findings Rosa coma scale eye opening: Spontaneous [place] coma scale verbal response: Orientated Rosa coma scale motor response: Obey commands Rosa coma scale total score: 15 COMMON NORMALS: patient oriented x3, CN's II-XII intact bilaterally, moves all extremities, no focal motor deficits, no sensory deficits noted and gait normal SENSORIUM/ORIENTATION: Yes alert, Yes oriented to person, Yes oriented to place and Yes oriented to time MENINGEAL SIGNS: Yes no meningeal signs SPEECH: speech normal MOTOR EXAM: 5/5 motor strength present throughout Skin: COMMON NORMALS: no rashes or lesions noted GENERAL SKIN EXAM: no rashes or lesions noted TRAUMA: no lacerations or abrasions Course Vital Signs: Vital signs: Vital Signs Temperature 97.9 F 02/18/22 12:49 Pulse Rate 91 02/18/22 12:49 Respiratory Rate 18 02/18/22 12:49 Blood Pressure 133/85 02/18/22 12:49 Pulse Oximetry 99 02/18/22 12:49 [facility] - Dizziness Medical Decision Making Patient here with complaints of dizziness and tinnitus both of which are chronic. The dizziness he states he has had for many years. The tinnitus is at least a year old because he saw Dr. Krueger for this complaint. He was supposed to have an audiogram completed but did not. He does not want any labs/imaging performed today. He just had a CT scan performed a couple of days ago when he was seen here following a fall. It was normal. He does have a history of chronic alcohol abuse so certainly cerebellar atrophy could be at least in part responsible for his dizziness. I will place referral to get him back into Dr. Krueger for re-evaluation and completion of audiogram for the tinnitus. Patient is stable for DC from an ED standpoint. Discharge Plan Discharge Patient Disposition: Home Clinical Impression: Dizziness, Tinnitus Condition: Stable Prescriptions: No Action multivitamin Tablet 1 tab PO DAILY 0RF omeprazole 20 mg Capsule,Delayed Release(Dr/Ec) 20 mg PO DAILY 0RF triamterene-hydrochlorothiazid [Maxzide-25mg] 37.5-25 mg tablet 1 tab PO DAILY 0RF Proctofoam 1 % foam 1 applic [place] BID Qty: 15 0RF mupirocin calcium 2 % cream 1 applic topical BID Qty: 30 0RF Anucort-HC 25 mg suppository 25 mg [place] BID PRN (Reason: Hemorrhoids) 0RF ibuprofen 200 mg Tablet 400 - 600 mg PO Q6H PRN (Reason: Pain) 0RF lisinopril 10 mg tablet 10 mg PO QAM 0RF Discharge Orders: Discharge ED (Routine); Ordered 02/18/22 Ordered By: Rabia Lebron Referrals: Elia Krueger MD [Physician] - Nolvia Sam [Primary Care Provider] - Coding Level of Care Code ED Electronic Publishing Specialist for Chg Fwd Exam Expanded Problem Focused
--- NOTE | 2022-02-20 08:42 | DCPLANNER ---
Addendum entered by Katya Mcginnis 03/03/22 12:07: commercial relationship manager was sent the following message from [facility] regarding follow up appointment: was scheduled for today, patient called and cancelled no reason was stated Original Note: commercial relationship manager had message to schedule a follow up appointment for patient with [facility]. commercial relationship manager sent patients information to the front office staff at [facility]. Patients information will be printed and reviewed. Clinic will call patient with appointment information.
== END 2022-02-18 17:10 | disposition home or self-care (01) ==
PROVIDERS: Emergency Provider Physician Assistant
DX: R42 Dizziness and giddiness (principal); H93.19 Tinnitus, unspecified ear
CPT/HCPCS: 99281

== ENCOUNTER → 2022-03-18 09:13 | Outpatient (BNVA) | payer MEDICARE, SELFPAY | PROVIDERS: Referring Provider Nurse Practitioner Family; Visit Provider Nurse Practitioner | DX: R42 Dizziness and giddiness (principal); R26.89 Other abnormalities of gait and mobility | CPT/HCPCS: 36415; 80053; 82607; 84443; 85025; 99204 ==

== ENCOUNTER 2022-05-30 20:58 | Emergency (ER) | payer MEDICARE, SELFPAY ==
[2022-05-30 20:58] VITALS: BP 111/79; PULSE 101; RESP 20; O2SAT 98; BMI 25.8
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
--- NOTE | 2022-05-31 16:01 | ED_ITS ---
HPI - Fall General: Chief Complaint: Fall Stated Complaint: FALL Time Seen by Provider: 05/30/22 21:32 Source: patient and EMS Mode of arrival: EMS History of Present Illness: 72 year old gentleman presenting by ambulance after a fall at home. He has a head injury, with laceration above his left eyebrow. He is grossly uncooperative stating, ?I?m fine?. He curses at his nurse when asked to move or perform any simple tasks. He denies headache or neck pain. He denies loss of consciousness prior to or after fall. He appears mildly intoxicated. MD complaint: fall Onset (ago): minute(s) Fall from: standing Fall witnessed: no Place fall occurred: home Loss of consciousness: None Prolonged down time: no Symptoms prior to fall: dizziness (chronic) Context: tripped/slipped and alcohol use Location of injury: head and face Quality: other Associated symptoms-after fall: Reports chest pain (mild with cough and inspiration) and headache(s); Denies abdominal pain, confusion, neck pain, numbness, short of breath or weakness Review of Systems Const: Denies: fever(s) Eyes: Denies: change in vision Card: Reports: chest pain (mild with cough and inspiration) Resp: Denies: dyspnea, productive cough or non-productive cough GI: Denies: abdominal pain Musc: Denies: neck pain Neuro: Reports: headache(s); Denies: confusion PFSH ED PFSH: Medical History Alcoholism Balance disorder Gait disorder Hematoma Hepatic encephalopathy Liver cirrhosis Recurrent falls Surgical History H/O inguinal hernia repair Family History Denies family history of Clotting disorder Dementia Chronic kidney disease (CKD) Cancer Social History Smoking and tobacco status: never smoked Alcohol intake: current Lives independently: Yes Household members: other Details: He lives alone Housing: House Marital status: Single Marital status details: Not in contact with his children, 2 sisters try to check up on him, sister Marely Barkley from [place] [phone] Physical Exam Const: COMMON NORMALS: no acute distress GENERAL APPEARANCE: comfortable, well kempt, lethargic (mildly), frail appearing (mildly) and odor of alcohol detected; not cooperative, not in distress and not ill appearing ORIENTATION/CONSCI OUSNESS: Yes awake, Yes oriented to person, Yes oriented to place, Yes oriented to time and Yes lethargic (mildly) HENMT: COMMON NORMALS: normocephalic and Normal external nose present HEAD & SCALP: normocephalic, hematoma (small left eyebrow) and laceration (stellate left eyebrow) NOSE: Normal external nose present and Normal nares present Eye: COMMON NORMALS: Equal, round and reactive pupils present and EOMs intact bilaterally SCLERA: sclerae normal PUPIL: Yes Equal, round and reactive pupils present Neck/C-Spine: COMMON NORMALS: full ROM GENERAL: Yes trachea midline CERVICAL SPINE: No Cervical spine tenderness Chest: COMMONS NORMALS: normal inspection of the chest CHEST: Yes Symmetrical chest wall rise and Yes tenderness (mild diffuse) Resp: COMMON NORMALS: normal respiratory effort and clear to auscultation bilaterally AUSCULTATION: clear to auscultation bilaterally Cardio: COMMON NORMALS: regular rate and regular rhythm RATE: regular rate RHYTHM: regular rhythm GI: COMMON NORMALS: Normal to inspection, nondistended, normoactive bowel sounds present and Soft to palpation PALPATION: Yes Soft to palpation Extremity: COMMON NORMALS: normal to inspection Neuro: ROSA COMA SCALE: document GCS findings [place] coma scale eye opening: Spontaneous [place] coma scale verbal response: Orientated [place] coma scale motor response: Obey commands Rosa coma scale total score: 15 SENSORIUM/ORIENTATION: Yes oriented to person, Yes oriented to place, Yes oriented to time and Yes lethargic (mildly) Psych: APPEARANCE: Yes well kempt Skin: NARRATIVE SKIN EXAM: 1.5 cm total stellate lac to left eyebrow. Procedures Laceration Laceration 1: Site: face Side (If applicable): left Size (cm): 1.5 Description: stellate Depth: simple, single layer Pre-repair: wound explored Skin layer closed with: other (dermabond) Course Vital Signs: Vital signs: Vital Signs Pulse Rate 101 H 05/30/22 20:58 Respiratory Rate 20 H 05/30/22 20:58 Blood Pressure 111/79 05/30/22 20:58 Pulse Oximetry 98 05/30/22 20:58 Oxygen Delivery Me thod 05/30/22 20:58 MDM - Fall Medical Decision Making The patient is not anticoagulated, but does drink alcohol daily. Bleeding is controlled to the laceration, which is repaired with dermabond. Head CT is negative For any acute finding. He does have chronic hydrocephalus that is unchanged. Cervical spine CT is negative. Chest X-ray is negative for rib fracture or pulmonary contusion. He is grossly uncooperative, cantankerous, and basically demanded to be discharged. As he is awake, alert, and oriented times three and knows his situation, we will not hold him in the yard. He'll be discharged. Lab Data Radiology Impressions Cervical Spine CT 05/30/22 20:59 IMPRESSION: Negative for fracture or dislocation. Head CT 05/30/22 21:00 IMPRESSION: 1. Negative for intracranial hemorrhage or mass effect. 2. Mild diffuse white matter disease likely reflecting chronic microvascular ischemic changes. 3. 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 Chest X-Ray 05/30/22 21:39 IMPRESSION: No acute findings. Discharge Plan Discharge Patient Disposition: Home Clinical Impression: Recurrent falls, Concussion without loss of consciousness, Laceration of scalp Condition: Stable Prescriptions: No Action losartan 25 mg tablet 25 mg PO DAILY hydroxyzine HCl 25 mg tablet 25 mg PO BID PRN multivitamin Tablet 1 tab PO DAILY omeprazole 20 mg Capsule,Delayed Release(Dr/Ec) 20 mg PO DAILY triamterene-hydrochlorothiazid [Maxzide-25mg] 37.5-25 mg tablet 1 tab PO DAILY Proctofoam 1 % foam 1 applic DE BID Qty: 15 0RF mupirocin calcium 2 % cream 1 applic topical BID Qty: 30 0RF Anucort-HC 25 mg suppository 25 mg DE BID PRN (Reason: Hemorrhoids) ibuprofen 200 mg Tablet 400 - 600 mg PO Q6H PRN (Reason: Pain) lisinopril 10 mg tablet 10 mg PO QAM Discharge Orders: Discharge ED (Routine); Ordered 05/30/22 Ordered By: Pankaj Lemos Referrals: Nolvia Sam [Primary Care Provider] - Patient Instructions: Scalp Laceration, Concussion (ED) Activity Restrictions/Additional Instructions: Return for worsening mental status, worsening pain, continued falls, any other concerning symptoms. A sober adult should stay with you for the next 24 hours. Coding Level of Care Code ED Manager Of Organizational Development for Nata Ugarte
== END 2022-05-30 22:52 | disposition home or self-care (01) ==
PROVIDERS: Emergency Provider Emergency Medicine
DX: S01.112A Laceration without foreign body of left eyelid and periocular area, initial encounter (principal); S06.0X0A Concussion without loss of consciousness, initial encounter; R29.6 Repeated falls; W19.XXXA Unspecified fall, initial encounter
CPT/HCPCS: 12011; 70450; 71045; 72125; 99284

== ENCOUNTER 2022-05-31 12:17 | Observation (INO) | payer MEDICARE, SELFPAY ==
[2022-05-31] VITALS (7 sets, daily range): BP systolic 113–134; BP diastolic 66–83; PULSE 86–105; RESP 14–22; TEMP 36.4–36.8; O2SAT 94–97
--- NOTE | 2022-05-31 13:03 | ECG_ITS ---
[facility] Test Date: 2022-05-31 Pat Name: Canelo Lara Department: Room: Gender: Male Client Development Director: : 1950 Requested By: Tianna Rubin Order Number: [id number] Esperanza MD: Radha Dickens M.D. Measurements Intervals Stanley Rate: 100 P: 25 NV: 140 QRS: -40 QRSD: 141 T: 6 QT: 371 QTc: 478 Interpretive Statements SINUS TACHYCARDIA LEFT AXIS DEVIATION [QRS AXIS < -30] RIGHT BUNDLE BRANCH BLOCK POSSIBLE SEPTAL MYOCARDIAL INFARCTION , PROBABLY OLD [30 ms Q WAVE IN V1/V2] Compared to ECG 09/24/2021 15:07:32 Left-axis deviation now present Myocardial infarct finding now present Sinus rhythm no longer present Left anterior fascicular block no longer present Electronically Signed On 05-31-2022 21:56:20 CDT by Radha Dickens M.D. [id number]
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
[2022-05-31 13:46] LABS: Basophils # 0.1 10^3/uL (0.0-0.1); Basophils % 0.6 %; Eosinophils # 0.1 10^3/uL (0.0-0.8); Eosinophils % 0.4 %; Hematocrit 34.2 % (42.0-52.0); Hemoglobin 10.9 g/dL (11.7-16.6); Lymphocytes # 1.6 10^3/uL (0.8-4.8); Lymphocytes % 12.3 %; Mean Corpuscular HGB Conc 31.9 g/dL (30.0-36.0); Mean Corpuscular Volume 87.9 fl (80-94); Mean Platelet Volume 9.1 fL (7.4-10.4); Monocytes % 7.9 %; Neutrophils # 9.94 10^3/uL (1.8-7.7); Neutrophils % 78.1 %; Nucleated Red Blood Cells % 0 %; Platelet Count 409 10^3/cmm (130-400); Red Blood Count 3.89 10^6/uL (4.1-5.3); Red Cell Distribution Width 16.7 % (12.1-15.1); White Blood Count 12.7 10^3/uL (4.0-10.0)
[2022-05-31 13:56] LABS: INR 1.01 (0.8-1.2)
[2022-05-31] MEDS: sodium chloride 0.9% 500 ML 999 ML IV (13:57)
[2022-05-31] MEDS: morphine 4 mg/mL SDV 1 mL IVP (13:57)
[2022-05-31] MEDS: ondansetron 2 mg/ML SDV 2 mL 4 MG IVP (13:58)
[2022-05-31 14:02] LABS: Ammonia 30 umol/L (16-60)
[2022-05-31 14:04] LABS: Lactate (Lactic Acid level) 3.1 mmol/L (0.5-2.2)
[2022-05-31 14:06] LABS: Alanine Aminotransferase 15 U/L (0-41); Albumin Level 4.1 g/dL (3.5-5.2); Alkaline Phosphatase 64 U/L (40-130); Anion Gap 15.7 (5-19); Aspartate Amino Transferase 16 U/L (0-40); Blood Urea Nitrogen 21 mg/dL (8-23); Calcium 9.4 mg/dL (8.5-10.5); Carbon Dioxide 28 mmol/L (22-29); Chloride 101 mmol/L (98-107); Globulin 2.6 g/dL (1.3-4.6); Glucose 197 mg/dL (65-115); Magnesium 2.5 mg/dL (1.7-2.3); Osmolality Calculated 300 mOsm/kg (285-295); Potassium 3.7 mmol/L (3.5-5.1); Sodium 141 mmol/L (136-145); Total Bilirubin 0.3 mg/dL (0.15-1.2); Total Protein 6.7 g/dL (6.6-8.7)
[2022-05-31 14:09] LABS: Alcohol Level < 10 mg/dL (0-10)
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
[2022-05-31] MEDS: iohexol 350 mg/mL 100 mL Btl IV (16:13)
[2022-05-31 16:56] LABS: Urine Appearance SL Hazy (CLEAR); Urine Color Straw (Yellow)
[2022-05-31 16:57] LABS: pH Urine 9 (5-7)
[2022-05-31 16:58] LABS: Add Urine Microscopic? YES; Bacteria Urine TRACE /hpf; Bilirubin Urine Neg (Negative); Blood Urine Neg (Negative); Glucose Urine UA Norm (Normal); Ketones Urine 1+ (Negative); Leukocyte Esterase Urine Negative (Negative); Nitrate Urine Negative (Negative); Protein Urine Neg (Negative); Urobilinogen Urine Norm (Negative)
[2022-05-31 16:59] LABS: Add Urine Culture? No; Amorphous Sediment Urine 1+ /hpf; Amphetamines Screen Urine Negative (Negative); Barbiturates Screen Urine Negative (Negative); Benzodiazepines Screen Urine Negative (Negative); Cocaine Screen Urine Negative (Negative); Opiate Screen Urine Positive (Negative); PCP Screen Urine Negative (Negative); Sulfosalicylic Acid Urine Negative (Negative); THC Screen Urine Negative (Negative)
--- NOTE | 2022-05-31 17:36 | PM.HP ---
Providers/Chief Complaint Primary Care Provider: Nolvia Sam Chief Complaint: Back pain, Fall? History of Present Illness Canelo Lara is a 72 year old male who was sent by his neighbor for concern of worsening of confusion. As per the neighbor he does have an odd personality but lately has been acting weird that prompted his visit to the ER. In the ER he does have leukocytosis without lactic acid however no source of infection identified, no signs of UTI or pneumonia. He does have a tiny pneumothorax for which a surgeon has been notified by the ER physician. Patient is not requiring oxygen Has had multiple admissions in the past to the psychiatric unit as well. He was recommended to go to [facility] in the past by his psychiatrist. Patient has history of leaving AMA in the past He does have chronic appearing L1 compression fracture He does have hiatal hernia CT scan findings are consistent with tension pneumothorax, prominent mediastinal lymphadenopathy may be suffering from chronic aspiration Large hiatal hernia/aortic fracture At the time of evaluation patient is very agitated stating that he does not want to stay in the hospital he is stating that he just came here to get his pain managed I did tell him about the rib fracture and L1 compression fracture He is DNR/DNI, he lives with 3 roommates, he does not have any family, his neighbor checks on him, he does not have any DPOA He does not want chest compressions or intubation or defibrillation in case of any cardiac event Stating that he drinks whiskey:- couple of shots every night to sleep He does not smoke Review of Systems Const: Reports: chills Eyes: Denies: change in vision ENMT: Denies: throat pain Card: Denies: chest pain Resp: Reports: dyspnea GI: Denies: abdominal pain : Denies: flank pain Musc: Reports: back pain Skin/Breast: Denies: rash Neuro: Denies: headache(s) Psych: Reports: anxiety Endo: Denies: polyuria Angel/Lymph: Denies: easy bruising All/Imm: Denies: urticaria Medications/Allergies Home Medications Medication Instructions Recorded Confirmed Last Taken Type multivitamin 1 tab PO DAILY 11/14/20 03/18/22 09/24/21 History omeprazole 20 mg capsule,delayed 20 mg PO DAILY 11/14/20 03/18/22 09/24/21 History release ibuprofen 200 mg tablet 400 - 600 mg PO Q6H PRN Pain 09/26/21 03/18/22 Unknown History mupirocin calcium 2 % topical cream 1 applic topical BID #30 grams 09/26/21 03/18/22 Unknown Rx losartan 25 mg tablet 25 mg PO DAILY 03/18/22 03/18/22 Unknown History Allergies Allergy/AdvReac Type Severity Reaction Status Date / Time No Known Allergies Allergy Verified 03/18/22 09:15 PFSH Acute PFSH: Medical History Alcoholism Balance disorder Gait disorder Hematoma Hepatic encephalopathy Liver cirrhosis Recurrent falls Surgical History H/O inguinal hernia repair Family History Denies family history of Clotting disorder Dementia Chronic kidney disease (CKD) Cancer Social History Smoking and tobacco status: never smoked Alcohol intake: current Lives independently: Yes Household members: other Details: He lives alone Housing: House Marital status: Single Marital status details: Not in contact with his children, 2 sisters try to check up on him, sister Marely Barkley from [place] [phone] Vitals/I&O/Wt Last Vital Signs Temp 97.5 F L 05/31/22 12:52 Pulse 86 05/31/22 14:46 Resp 21 H 05/31/22 14:46 BP 113/66 05/31/22 14:46 Pulse Ox 96 05/31/22 14:46 O2 Del Method 05/31/22 14:46 05/31/22 05/31/22 05/31/22 06:59 14:59 22:59 Intake Total 500 / 500 Balance 500 / 500 Physical Exam Narrative: Patient is confabulating Currently on room air Nonfocal neuro exam Confabulating Dehydrated Hemodynamically stable Abdomen soft S1, S2 No audible stridor or wheezing Petechia, bruises on his extremities Left orbital area with petechiae, no active bleeding Patient seems to be very agitated and anxious He is not happy staying in the hospital Complaining of pleuritic pain Data : 05/31/22 13:20 05/31/22 13:20 A&P Assessment and plan (1) Concussion without loss of consciousness: (2) Laceration of scalp: (3) Pneumothorax: (4) Abrasion of face: (5) Acute confusion: (6) Encephalopathy: (7) Balance disorder: (8) Gait disorder: Plan Warnicke encephalopathy Patient is suffering from encephalopathy related to alcohol abuse, he does have ataxia, confabulation, dizziness, Alcohol abuse Start high-dose thiamine Folic acid My concern is related to chronic aspiration, I will put him on Augmentin His lactic acid was high with leukocytosis Afebrile No signs of endorgan damage CT abdomen pelvis unremarkable other than posterior chronic rib fracture, tiny pneumothorax Surgeon has been notified Will repeat x-ray within 6 hours to check on pneumothorax I will start patient on cardiac diet Check ammonia level B12 No signs of pneumonia or UTI For his pleuritic pain I will keep him on Dilaudid long bowel regimen DNR/DNI Goals of care discussed with the patient Attestations Medical Necessity Statement*: Anticipating discharge within 48 hours Time Spent in Patient Care: 35 Coding Level of Care Code Acute Associate Professor Of Art for g Fwd Diagnoses Concussion without loss of consciousness S06.0X0A Laceration of scalp S01.01XA Pneumothorax J93.9 Abrasion of face S00.81XA Acute confusion R41.0 Encephalopathy G93.40 Balance disorder R26.89 Gait disorder R26.9
--- NOTE | 2022-05-31 18:33 | PC.NURSE ---
nursing report called to med-surg.
--- NOTE | 2022-05-31 19:08 | P.CONIM_ITS ---
Providers/Reason For Consult Consulting Physician/Specialty*: General Surgery/Ben Shields MD, FACS, RPVI Reason for Consult*: Pneumothorax on the left Attending Physician: Latricia Nair MD Primary Care Provider: Nolvia Sam History of Present Illness History of Present Illness Canelo Lara is a 72 year old male He fell yesterday on his back, stated that he hit his head and lost consciousness for a small period of time. He was in the emergency room yesterday and was discharged home. He came back today because he cannot manage his pain. He is complaining of pain in the back as well as pain in the stomach, acid reflux. He is agitated, asking for pain medications, he is very rude and does not participate in conversation appropriately i.e., constantly interrupts me, does not answer questions about his symptoms or past medical history. I am not sure if he is providing acute information or not. However, he seems to be well oriented. He admits drinking whiskey several shots a day for many years daily. He denies any chest pain, difficulty breathing, shortness of breath. He stated that he can walk several miles without any problems. He is ambulating with a cane. He was evaluated in the emergency room with a CT of the head, neck, chest abdomen pelvis. It demonstrated small left pneumothorax, old rib fracture, old compression spine fracture, large hiatal hernia and other chronic findings. No acute traumatic injuries other than pneumothorax. The patient was prior diagnosed with a liver cirrhosis, EtOH abuse, behavioral issues, he left the hospital AGAINST MEDICAL ADVICE multiple times before. Review of Systems Narrative: 10 point review of systems is negative except as per HPI Medications/Allergies Home Medications Medication Instructions Recorded Confirmed Last Taken Type multivitamin 1 tab PO DAILY 11/14/20 05/31/22 05/31/22 History omeprazole 20 mg capsule,delayed 20 mg PO DAILY 11/14/20 05/31/22 05/31/22 History release ibuprofen 200 mg tablet 400 - 600 mg PO Q6H PRN Pain 09/26/21 05/31/22 Unknown History mupirocin calcium 2 % topical cream 1 applic topical BID #30 grams 09/26/21 05/31/22 Unknown Rx losartan 25 mg tablet 25 mg PO DAILY 03/18/22 05/31/22 05/31/22 History Allergies Allergy/AdvReac Type Severity Reaction Status Date / Time No Known Allergies Allergy Verified 03/18/22 09:15 PFSH Acute PFSH: Medical History Alcoholism Balance disorder Gait disorder Hematoma Hepatic encephalopathy Liver cirrhosis Recurrent falls Surgical History H/O inguinal hernia repair Family History Denies family history of Clotting disorder Dementia Chronic kidney disease (CKD) Cancer Social History Smoking and tobacco status: never smoked Alcohol intake: current Lives independently: Yes Household members: other Details: He lives alone Housing: House Marital status: Single Marital status details: Not in contact with his children, 2 sisters try to check up on him, sister Marely Barkley from [place] [phone] Vitals/I&O/Wt Last Vital Signs Temp 97.5 F L 05/31/22 12:52 Pulse 105 H 05/31/22 18:15 Resp 22 H 05/31/22 18:15 BP 134/83 05/31/22 18:15 Pulse Ox 96 05/31/22 18:15 O2 Del Method 05/31/22 18:15 05/31/22 05/31/22 05/31/22 06:59 14:59 22:59 Intake Total 500 / 500 Balance 500 / 500 Physical Exam Narrative: General: Patient is in distress, stated that his pain is tolerable Psych: [AAOx3] Eyes: [sclerae are white] Head/ENT: [normocephalic, symmetric, some abrasions of the face are present.] CV: [regular] pulse, [], no JVD Lungs: [symmetrical chest rise, pain upon palpation of the posterior chest on the left] Abdomen: [soft, ND, minimal tenderness to palpation in left upper quadrant along the rib cage more toward the back.] Ext: [no obvious traumatic deformities] Skin: warm Data : 05/31/22 13:20 05/31/22 13:20 A&P Assessment and plan (1) Concussion without loss of consciousness: (2) Laceration of scalp: (3) Pneumothorax: (4) Abrasion of face: Plan The pneumothorax is very small, it does not require any drainage at this time. Can be safely observed. I will order x-ray for tomorrow a.m. to reassess the size of the pneumothorax. I will order Dilaudid 1 mg once and Protonix orally to help with his pain right now. His medical team is coming to evaluate him soon. The patient definitely has some psychiatric issues, high risk for withdrawal given chronic ethanol abuse. Should be monitored for delirium. I will leave the management to the primary team. Minor abrasions of the face can be left alone, they will heal, no need for spe cific intervention. Surgery will continue to follow. I will check out this patient tomorrow to Dr. Hurtado. Coding Level of Care Code Acute Centralized Traffic Control Operator for Nata Ugarte Diagnoses Concussion without loss of consciousness S06.0X0A Laceration of scalp S01.01XA Pneumothorax J93.9 Abrasion of face S00.81XA
[2022-05-31 19:10] LABS: Ammonia 21 umol/L (16-60)
[2022-05-31 19:22] LABS: Procalcitonin 0.11 ng/mL (0-0.5); Vitamin B12 799 pg/mL (232-1245)
[2022-05-31] MEDS: amoxicillin-clav 875-125 mg Tablet 1 TAB PO (19:38)
[2022-05-31] MEDS: pantoprazole DR 40 mg Tablet PO (19:38)
[2022-05-31] MEDS: enoxaparin 40 mg/0.4 mL Syringe SUBCUT (19:38)
[2022-05-31] MEDS: HYDROmorphone 1 mg/mL INJ 1 mL 0.4 MG IVP (19:42)
[2022-05-31] MEDS: sodium chloride 0.9% 1,000 ML 75 ML IV (19:48)
[2022-05-31] MEDS: ibuprofen 200 mg Tablet 400 MG PO (21:54)
[2022-05-31] MEDS: PHENobarbital 32.4 mg Tablet 64.8 MG PO (21:56)
--- NOTE | 2022-05-31 23:00 | XRR_ITS ---
PROCEDURE INFORMATION: Exam: XR Chest Exam date and time: 05/31/2022 11:20 PM Age: 72 years old Clinical indication: Other: Follow up pneumothorax; Additional info: Pneumothorax, please do it at 11 pm TECHNIQUE: Imaging protocol: Radiologic exam of the chest. Views: 1 view. COMPARISON: CT chest abd pel w con* 05/31/2022 4:09 PM FINDINGS: Lungs: Unremarkable. No consolidation. Pleural spaces: Somewhat equivocal visualization of a previously seen left-sided pneumothorax measuring up to 8.3 mm in separation in the left apical lung field. Heart/Mediastinum: Cardiomegaly. Small to moderate hiatal hernia. Bones/joints: Unremarkable. XR/XR chest 1V portable [id number] IMPRESSION: 1. Somewhat equivocal visualization of a previously seen left-sided pneumothorax measuring up to 8.3 mm in separation in the left apical lung field. 2. Cardiomegaly. 3. Small to moderate hiatal hernia.
[2022-06-01 01:15] VITALS: BP 137/90; PULSE 91; RESP 16; TEMP 36.4; O2SAT 96
[2022-06-01 05:14] LABS: Basophils % 0.4 %; Eosinophils % 0.3 %; Hematocrit 28.6 % (42.0-52.0); Lymphocytes # 1.7 10^3/uL (0.8-4.8); Lymphocytes % 17.1 %; Mean Corpuscular HGB Conc 31.5 g/dL (30.0-36.0); Mean Corpuscular Volume 88.8 fl (80-94); Mean Platelet Volume 9.4 fL (7.4-10.4); Monocytes # 0.8 10^3/uL (0.2-0.9); Monocytes % 8.3 %; Neutrophils # 7.38 10^3/uL (1.8-7.7); Neutrophils % 73.3 %; Nucleated Red Blood Cells % 0 %; Platelet Count 294 10^3/cmm (130-400); Red Blood Count 3.22 10^6/uL (4.1-5.3); Red Cell Distribution Width 16.1 % (12.1-15.1); White Blood Count 10.1 10^3/uL (4.0-10.0)
[2022-06-01 05:40] LABS: Alanine Aminotransferase 11 U/L (0-41); Albumin Level 3.1 g/dL (3.5-5.2); Alkaline Phosphatase 53 U/L (40-130); Anion Gap 10.2 (5-19); Aspartate Amino Transferase 14 U/L (0-40); Blood Urea Nitrogen 20 mg/dL (8-23); Carbon Dioxide 27 mmol/L (22-29); Chloride 101 mmol/L (98-107); Globulin 2.5 g/dL (1.3-4.6); Glucose 85 mg/dL (65-115); Magnesium 2.1 mg/dL (1.7-2.3); Osmolality Calculated 280 mOsm/kg (285-295); Potassium 4.2 mmol/L (3.5-5.1); Sodium 134 mmol/L (136-145); Total Bilirubin 0.3 mg/dL (0.15-1.2); Total Protein 5.6 g/dL (6.6-8.7)
[2022-06-01 07:36] VITALS: BP 151/91; PULSE 86; RESP 17; TEMP 36.8; O2SAT 95
[2022-06-01 08:00] VITALS: PULSE 92; RESP 16; O2SAT 96
--- NOTE | 2022-06-01 08:00 | XR_ITS ---
WS: [id number] Exam: XR chest 2V insp/exp [id number] Date/Time of Exam: 06/01/2022 7:58 AM Reason For Exam: Left PTX Comparison 05/31/2022. Previously noted small left apical pneumothorax appears to have resolved. The lungs are fully inflate d and clear. Old bilateral rib fractures are noted. Right-sided pleural thickening. Pleural thickenin g at the costophrenic angles. Cardiomediastinal silhouette is unremarkable. Hiatal hernia noted. A tr otoniel amount of subcutaneous emphysema along the left rib cage. XR/XR chest 2V insp/exp [id number] IMPRESSION: 1. Resolved left apical pneumothorax. 2. Old bilateral rib fractures and bilateral pleural thickening. 3. Tiny amount of subcutaneous emphysema along the left rib cage. Hiatal hernia .
[2022-06-01 09:03] VITALS: BP 151/91
[2022-06-01] MEDS: losartan 50 mg Tablet 25 MG PO (09:03)
[2022-06-01] MEDS: pantoprazole DR 40 mg Tablet PO (09:04)
[2022-06-01] MEDS: lisinopril 10 mg Tablet PO (09:04)
[2022-06-01] MEDS: folic acid 1 mg Tablet PO (09:05)
[2022-06-01] MEDS: sodium chloride 0.9% 1,000 ML 75 ML IV (09:05)
--- NOTE | 2022-06-01 10:40 | P.DS_ITS ---
Discharge Providers Date of Admission: 05/31/22 17:34 Date of Discharge: June 01, 2022 Attending Provider at Admission: Latricia Nair MD Attending Provider at Discharge: Latricia Nair MD Primary Care Provider: Nolvia Sam Diagnoses at Discharge Discharge Diagnosis (1) Concussion without loss of consciousness: Status: Acute (2) Laceration of scalp: Status: Acute (3) Pneumothorax: Status: Acute (4) Abrasion of face: Status: Acute Reason for Visit Reason for Visit: Back pain, Fall? Hospital Course Hospital Course 72-year-old male with history of alcohol abuse, lives with 2 other roommates, drinks half a pint of whiskey every day, presented to hospital after sustaining a fall, pleuritic pain, he was diagnosed with tiny left-sided pneumothorax and chronic rib fracture, repeat x-ray did show resolution of pneumothorax, no surgical intervention as per surgery, patient is eager and wants to go home, I will discharge him on opioids, bowel regimen. I have kept him on thiamine, folic acid. He does have significant psychiatric medical history, no active suicidal thoughts or ideation. 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 Physical Exam Narrative: No crepitation or crackles Bilateral breath sounds No active respiratory distress Currently on room air S1, S2 Pleasant but easily gets frustrated Abdomen soft No signs of edema of lower extremity Neuro: Nonfocal neuro exam Discharge Data Studies Completed and Pending Completed Studies During Hospitalization Category Date Time Status CT chest abdomen pelvis [CT chest abd pel w con*] Stat Cat Scan 05/31/22 15:35 Completed CXRIE [XR chest 2V insp/exp [id number]] Routine Exams 06/01/22 08:00 Completed XR chest 1V portable [id number] Routine Exams 05/31/22 23:00 Completed Radiology Impressions Chest/Abdomen/Pelvis CT 05/31/22 15:35 IMPRESSION: 1. Trace left pneumothorax with 4.9 mm separation between the lung and pleura. 2. Bilateral dependent atelectasis. 3. Several prominent mediastinal lymph nodes, with a dominant anterior mediastinal lymph node measuring 2 cm short axis, similar to prior exam, nonspecific. 4. Coronary artery atherosclerotic calcifications. 5. Large hiatal hernia. 6. Chronic left 4th posterior rib fracture. IMPRESSION: Negative for acute traumatic injury to the abdomen or pelvis. ADDENDUM: 05/31/22 [id number] THIS REPORT CONTAINS FINDINGS THAT MAY BE CRITICAL TO PATIENT CARE. The findings were verbally communicated via telephone conference with KELLE SPENCER at 5:07 PM CDT on 05/31/2022. The findings were acknowledged and understood. Chest X-Ray 06/01/22 08:00 IMPRESSION: 1. Resolved left apical pneumothorax. 2. Old bilateral rib fractures and bilateral pleural thickening. 3. Tiny amount of subcutaneous emphysema along the left rib cage. Hiatal hernia. Laboratory Results WBC 10.1 10^3/uL (4.0-10.0) H 06/01/22 04:38 RBC 3.22 10^6/uL (4.1-5.3) L 06/01/22 04:38 Hgb 9.0 g/dL (11.7-16.6) L 06/01/22 04:38 Hct 28.6 % (42.0-52.0) L 06/01/22 04:38 MCV 88.8 fl (80-94) 06/01/22 04:38 MCH 28.0 pg (28.0-34.0) 06/01/22 04:38 MCHC 31.5 g/dL (30.0-36.0) 06/01/22 04:38 RDW 16.1 % (12.1-15.1) H 06/01/22 04:38 Plt Count 294 10^3/cmm (130-400) 06/01/22 04:38 MPV 9.4 fL (7.4-10.4) 06/01/22 04:38 Neut % (Auto) 73.3 % 06/01/22 04:38 Lymph % (Auto) 17.1 % 06/01/22 04:38 [place] % (Auto) 8.3 % 06/01/22 04:38 Eos % (Auto) 0.3 % 06/01/22 04:38 Baso % (Auto) 0.4 % 06/01/22 04:38 Neut # (Auto) 7.38 10^3/uL (1.8-7.7) 06/01/22 04:38 Lymph # (Auto) 1.7 10^3/uL (0.8-4.8) 06/01/22 04:38 [place] # (Auto) 0.8 10^3/uL (0.2-0.9) 06/01/22 04:38 Eos # (Auto) 0.0 10^3/uL (0.0-0.8) 06/01/22 04:38 Baso # (Auto) 0.0 10^3/uL (0.0-0.1) 06/01/22 04:38 Nucleated RBC % (auto) 0 % 06/01/22 04:38 Nucleated RBCs # 0.0 /100WBC 06/01/22 04:38 PT 13.60 SECONDS (12.1-14.9) 05/31/22 13:20 INR 1.01 (0.8-1.2) 05/31/22 13:20 Sodium 134 mmol/L (136-145) L 06/01/22 04:38 Potassium 4.2 mmol/L (3.5-5.1) 06/01/22 04:38 Chloride 101 mmol/L (98-107) 06/01/22 04:38 Carbon Dioxide 27 mmol/L (22-29) 06/01/22 04:38 Anion Gap 10.2 (5-19) 06/01/22 04:38 BUN 20 mg/dL (8-23) 06/01/22 04:38 Creatinine 0.8 mg/dL (0.7-1.2) 06/01/22 04:38 GFR Calculation Not Reportable 06/01/22 04:38 Glucose 85 mg/dL (65-115) 06/01/22 04:38 Calculated Osmolality 280 mOsm/kg (285-295) L 06/01/22 04:38 Lactate 3.1 mmol/L (0.5-2.2) H 05/31/22 13:20 Calcium 9.0 mg/dL (8.5-10.5) 06/01/22 04:38 Magnesium 2.1 mg/dL (1.7-2.3) 06/01/22 04:38 Total Bilirubin 0.3 mg/dL (0.15-1.2) 06/01/22 04:38 AST 14 U/L (0-40) 06/01/22 04:38 ALT 11 U/L (0-41) 06/01/22 04:38 Alkaline Phosphatase 53 U/L (40-130) 06/01/22 04:38 Ammonia 21 umol/L (16-60) 05/31/22 18:09 Total Protein 5.6 g/dL (6.6-8.7) L 06/01/22 04:38 Albumin 3.1 g/dL (3.5-5.2) L 06/01/22 04:38 Globulin 2.5 g/dL (1.3-4.6) 06/01/22 04:38 Vitamin B12 799 pg/mL (232-1245) 05/31/22 18:09 Procalcitonin 0.11 ng/mL (0-0.5) 05/31/22 18:09 Urine Color Straw (Yellow) 05/31/22 16:40 Urine Appearance Sl hazy (CLEAR) A 05/31/22 16:40 Urine pH 9 (5-7) H 05/31/22 16:40 Ur Specific [place] 1.010 (1.005-1.030) 05/31/22 16:40 Urine Protein Neg (Negative) 05/31/22 16:40 Urine Glucose (UA) Norm (Normal) 05/31/22 16:40 Urine Ketones 1+ (Negative) H 05/31/22 16:40 Urine Blood Neg (Negative) 05/31/22 16:40 Urine Nitrate Negative (Negative) 05/31/22 16:40 Urine Bilirubin Neg (Negative) 05/31/22 16:40 Prot Sulfosalicylic Acd Negative (Negative) 05/31/22 16:40 Urine Urobilinogen Norm mg/dL (Negative) 05/31/22 16:40 Ur Leukocyte Esterase Negative (Negative) 05/31/22 16:40 Urine RBC None /hpf (0-2) 05/31/22 16:40 Urine WBC None /hpf (0-5) 05/31/22 16:40 Ur Squamous Epith Cells None /hpf (0-5) 05/31/22 16:40 Amorphous Sediment 1+ /hpf 05/31/22 16:40 Urine Bacteria Trace /hpf (NONE) 05/31/22 16:40 Urine Opiates Screen Positive ng/mL (Negative) H 05/31/22 16:40 Ur Barbiturates Screen Negative ng/mL (Negative) 05/31/22 16:40 Ur Phencyclidine Scrn Negative ng/mL (Negative) 05/31/22 16:40 Ur Amphetamines Screen Negative ng/mL (Negative) 05/31/22 16:40 U Benzodiazepines Scrn Negative ng/mL (Negative) 05/31/22 16:40 Urine Cocaine Screen Negative ng/mL (Negative) 05/31/22 16:40 U Marijuana (THC) Screen Negative ng/mL (Negative) 05/31/22 16:40 Ethyl Alcohol < 10 mg/dL (0-10) 05/31/22 13:20 Vitals Last Vital Signs Temp 98.2 F 06/01/22 07:36 Pulse 92 06/01/22 08:00 Resp 16 06/01/22 08:00 BP 151/91 06/01/22 09:03 Pulse Ox 96 06/01/22 08:00 O2 Del Method 06/01/22 08:00 Discharge Plan Discharge Patient Disposition: Home Condition: Stable Prescriptions: New oxycodone-acetaminophen 5-325 mg tablet 1 tab PO Q8H PRN (Reason: pain) Qty: 14 0RF sennosides-docusate sodium [Senna-S] 8.6-50 mg tablet 1 tab-cap PO DAILY Qty: 30 0RF amlodipine 5 mg tablet 5 mg PO DAILY Qty: 60 0RF folic acid 1 mg Tablet 1 mg PO DAILY Qty: 60 0RF thiamine HCl (vitamin B1) 100 mg tablet 100 mg PO DAILY Qty: 90 2RF Continued multivitamin Tablet 1 tab PO DAILY omeprazole 20 mg Capsule,Delayed Release(Dr/Ec) 20 mg PO DAILY mupirocin calcium 2 % cream 1 applic topical BID Qty: 30 0RF ibuprofen 200 mg Tablet 400 - 600 mg PO Q6H PRN (Reason: Pain) Changed losartan 25 mg tablet 50 mg PO DAILY Qty: 60 0RF Discharge Orders: Discharge Order (Routine); Ordered 06/01/22 Ordered By: Latricia Nair Referrals: Nolvia Sam [Primary Care Provider] - 4-7 days Discharge Attestations Time Spent in Discharge Care*: less than 30 min Quality Metrics Clinical Quality Measures [ No reported AMI, CVA or VTE this stay] Coding Level of Care Code Acute Chg FW DC note Diagnoses Concussion without loss of consciousness S06.0X0A Laceration of scalp S01.01XA Pneumothorax J93.9 Abrasion of face S00.81XA
--- NOTE | 2022-06-01 10:47 | PC.CHAP ---
Pastoral Care Encounter/Spiritual Assessment Type of Contact [] Declined equalizing saw operator visit [] Patient/Family/Request visit [] Outpatient visit [] Follow-up visit [] Physician referral [] Code/Alert [x] Routine visit [] Staff referral [] Actively dying [] Patient sleeping [] Family support [] [] Out of room [] Palliative care [] [] Receiving care in room [] Pre-surgical visit [] Trauma [] Long length of stay [] ICU visit [] Other: Relational/Emotional Strength [x] Patient feels connected with others/family/visitors/staff [] Distress [] Loneliness/isolation [] Abandonment Spirituality of Patient x[] Person of Lizzie [x] Attends Jehovah'S Witness of their Lizzie [x Believes in Prayer [] Reads Bible or Hinduism materials [] There are Spiritual issues to be addressed [employer] Interventions [x] Prayer [] Active listening [] Non-anxious presence [] Spiritual/emotional support [] Crisis/trauma care [] Spiritual counseling [] Bereavement support [] Provided bereavement packet [] Provided Bible/devotional materials [] Provided toy/stuffed animal, coloring book to patient or family member [] Provided Communion [] Anointing/[place] [] Salvation [x] Completed spiritual assessment [] Other: Impact on Illness or Injury [] Angry [] Fearful [] Anxious [] Often cries [] Exhaustion [] Unable to work [] Unable to attend protestant [] Unable to walk/stand [] Unable to read [] Unable to drive [] Unable to eat/drink [] Unable to sleep [] Unable to be with family [] Patient intubated [] Other: Summary Time spent with patient
[2022-06-01 11:00] VITALS: BP 121/75; PULSE 78; RESP 19; TEMP 36.8; O2SAT 97
[2022-06-01 15:16] VITALS: BP 121/75; PULSE 78; RESP 19; TEMP 36.8; O2SAT 97
== END 2022-06-01 15:17 | disposition home or self-care (01) ==
LOC: ER 18:06 → MEDSURG 18:27
PROVIDERS: Admitting Provider Internal Medicine; Emergency Provider Emergency Medicine; Visit Provider Internal Medicine
DX: S06.0X0A Concussion without loss of consciousness, initial encounter (principal); S01.01XA Laceration without foreign body of scalp, initial encounter; S00.81XA Abrasion of other part of head, initial encounter; J93.9 Pneumothorax, unspecified; W19.XXXA Unspecified fall, initial encounter; Z66 Do not resuscitate; E51.2 Wernicke's encephalopathy
CPT/HCPCS: 12345; 36415; 71045; 71046; 71260; 74177; 80053; 80306; 80307; 81001; 82140; 82607; 83605; 83735; 84145; 85025; 85610; 93005; 96372; 96374; 96375; 97161; 99285; G0378; J1170; J1650; J2270; J2405; J3411; J7030; J7040; Q9967

== ENCOUNTER 2022-06-06 18:00 | Emergency (ER) | payer MEDICARE, SELFPAY ==
[2022-06-06 18:13] VITALS: BP 111/71; PULSE 95; RESP 15; TEMP 36.7; O2SAT 98; BMI 25.8
--- NOTE | 2022-06-06 19:21 | ED_ITS ---
HPI - Dizziness General: Chief Complaint: Dizziness Stated Complaint: Hearing is off, Dizziness Time Seen by Provider: 06/06/22 19:21 History of Present Illness: HPI Narrative: Mr. Lara is a 72-year-old gentleman with history of head trauma presenting to the emergency department due to dizziness, ear discomfort, and ringing in ears. Symptoms have predated his most recent head trauma but have become more severe. He describes loud ringing sensation and unsteady feeling worse in the left ear. Course has worsened. No other specific changes in health, exacerbating, or alleviating factors identified. Onset (ago): week(s) Timing: intermittent Severity: severe Associated symptoms: Reports no associated symptoms; Denies ear discharge or ear pressure Associated neuro symptoms: Reports no associated symptoms Review of Systems General: Reports: 10 or more systems reviewed and unremarkable except in HPI and below ENMT: Denies: ear discharge PFSH ED PFSH: Medical History Abrasion of face Acute confusion Alcohol abuse For the moment the patient's sober. He is competent, per my assessment today, to assume responsibility for his health care and wellbeing. Alcoholism Balance disorder Concussion without loss of consciousness Encephalopathy Gait disorder Hematoma Hepatic encephalopathy Laceration of scalp Liver cirrhosis Pneumothorax Recurrent falls Surgical History H/O inguinal hernia repair Family History Denies family history of Clotting disorder Dementia Chronic kidney disease (CKD) Cancer Social History Smoking and tobacco status: never smoked Alcohol intake: current Lives independently: Yes Household members: other Details: He lives alone Housing: House Marital status: Single Marital status details: Not in contact with his children, 2 sisters try to check up on him, sister Marely Barkley from [place] [phone] Physical Exam Const: COMMON NORMALS: patient oriented x3 and alert GENERAL APPEARANCE: cooperative and well developed HENMT: COMMON NORMALS: normocephalic, atraumatic, external ears normal, EAC's normal and TM's normal bilaterally HEAD & SCALP: normocephalic and atraumatic EXTERNAL EAR: Yes external ears normal EXTERNAL AUDITORY CANAL: EAC's normal TYMPANIC MEMBRANE: TM's normal bilaterally THROAT: posterior oropharynx normal Eye: COMMON NORMALS: conjunctivae normal CONJUNCTIVA: Yes conjunctivae normal SCLERA: sclerae normal Neck/C-Spine: COMMON NORMALS: supple GENERAL: Yes trachea midline Resp: COMMON NORMALS: normal respiratory effort EFFORT & INSPECTION: Yes able to speak in complete sentences Cardio: COMMON NORMALS: regular rate and regular rhythm RATE: regular rate RHYTHM: regular rhythm GI: COMMON NORMALS: Soft to palpation PALPATION: Yes Soft to palpation and No Tenderness to palpation present (GI) Extremity: GENERAL: Yes normal exam except as noted and No edema Neuro: COMMON NORMALS: patient oriented x3, CN's II-XII intact bilaterally, moves all extremities, no focal motor deficits and no sensory deficits noted SENSORIUM/ORIENTATION: Yes alert and No Orientation impaired Psych: COMMON NORMALS: mental status grossly normal and Normal thought process present THOUGHT PROCESS: Normal thought process present Course Vital Signs: Vital signs: Vital Signs Temperature 98.1 F 06/06/22 18:13 Pulse Rate 78 06/06/22 19:29 Respiratory Rate 16 06/06/22 19:29 Blood Pressure 123/74 06/06/22 19:29 Pulse Oximetry 99 06/06/22 19:29 Oxygen Delivery Me thod 06/06/22 19:29 MDM - Dizziness Medical Decision Making 72-year-old gentleman presenting with what sounds of tinnitus no also associated dizziness and prior head trauma. No focal neurologic deficits on exam and patient is nontoxic. EKG notable for sinus rhythm, nonspecific ST segment abnormalities, no STEMI. Labs notable for minimal leukocytosis, hemoglobin similar compared to baseline. Mild dehydration on metabolic panel. Initial troponin minimally elevated. CT imaging with no acute intracranial findings Upon reassessment not significantly improved with meclizine or fluids. Most likely cause of symptoms is unclear, likely tinnitus and other cause of dizziness. Patient declined to remain in the emergency room and for repeat troponin and left AGAINST MEDICAL ADVICE. Medical Records I reviewed the patient's medical records. Lab Data I reviewed the patient's lab results. : 06/06/22 19:52 06/06/22 19:[address] 06/06/22 19:39 IMPRESSION: No acute intracranial findings. Laboratory Results WBC 10.3 10^3/uL (4.0-10.0) H 06/06/22 19:52 RBC 4.04 10^6/uL (4.1-5.3) L 06/06/22 19:52 Hgb 11.2 g/dL (11.7-16.6) L 06/06/22 19:52 Hct 35.8 % (42.0-52.0) L 06/06/22 19:52 MCV 88.6 fl (80-94) 06/06/22 19:52 MCH 27.7 pg (28.0-34.0) L 06/06/22 19:52 MCHC 31.3 g/dL (30.0-36.0) 06/06/22 19:52 RDW 16.0 % (12.1-15.1) H 06/06/22 19:52 Plt Count 509 10^3/cmm (130-400) H 06/06/22 19:52 MPV 8.9 fL (7.4-10.4) 06/06/22 19:52 Neut % (Auto) 75.0 % 06/06/22 19:52 Lymph % (Auto) 15.4 % 06/06/22 19:52 [place] % (Auto) 7.4 % 06/06/22 19:52 Eos % (Auto) 1.2 % 06/06/22 19:52 Baso % (Auto) 0.5 % 06/06/22 19:52 Neut # (Auto) 7.75 10^3/uL (1.8-7.7) H 06/06/22 19:52 Lymph # (Auto) 1.6 10^3/uL (0.8-4.8) 06/06/22 19:52 [place] # (Auto) 0.8 10^3/uL (0.2-0.9) 06/06/22 19:52 Eos # (Auto) 0.1 10^3/uL (0.0-0.8) 06/06/22 19:52 Baso # (Auto) 0.1 10^3/uL (0.0-0.1) 06/06/22 19:52 Nucleated RBC % (auto) 0 % 06/06/22 19:52 Nucleated RBCs # 0.0 /100WBC 06/06/22 19:52 Sodium 130 mmol/L (136-145) L 06/06/22 19:52 Potassium 4.1 mmol/L (3.5-5.1) 06/06/22 19:52 Chloride 95 mmol/L (98-107) L 06/06/22 19:52 Carbon Dioxide 26 mmol/L (22-29) 06/06/22 19:52 Anion Gap 13.1 (5-19) 06/06/22 19:52 BUN 15 mg/dL (8-23) 06/06/22 19:52 Creatinine 1.0 mg/dL (0.7-1.2) 06/06/22 19:52 GFR Calculation Not Reportable 06/06/22 19:52 Glucose 78 mg/dL (65-115) 06/06/22 19:52 Calculated Osmolality 270 mOsm/kg (285-295) L 06/06/22 19:52 Calcium 9.6 mg/dL (8.5-10.5) 06/06/22 19:52 Magnesium 2.4 mg/dL (1.7-2.3) H 06/06/22 19:52 Total Bilirubin 0.3 mg/dL (0.15-1.2) 06/06/22 19:52 AST 17 U/L (0-40) 06/06/22 19:52 ALT 14 U/L (0-41) 06/06/22 19:52 Alkaline Phosphatase 73 U/L (40-130) 06/06/22 19:52 Troponin T Baseline 16 ng/L (0-15) H 06/06/22 19:52 Total Protein 8.0 g/dL (6.6-8.7) 06/06/22 19:52 Albumin 4.3 g/dL (3.5-5.2) 06/06/22 19:52 Globulin 3.7 g/dL (1.3-4.6) 06/06/22 19:52 TSH 1.71 uIU/mL (0.27-4.20) 06/06/22 19:52 Discharge Plan Discharge Patient Disposition: Left Against Medical Advice Clinical Impression: Tinnitus, Dizziness, Dehydration Condition: Stable Prescriptions: No Action multivitamin Tablet 1 tab PO DAILY ibuprofen 200 mg Tablet 400 - 600 mg PO Q6H PRN (Reason: Pain) folic acid 1 mg Tablet 1 mg PO DAILY Qty: 60 0RF thiamine HCl (vitamin B1) 100 mg tablet 100 mg PO DAILY Qty: 90 2RF losartan 25 mg tablet 50 mg PO DAILY Qty: 60 0RF amlodipine 5 mg tablet 5 mg PO DAILY Qty: 60 0RF pantoprazole 40 mg tablet,delayed release (DR/EC) 40 mg PO DAILY Qty: 30 0RF Referrals: Nolvia Sam [Primary Care Provider] - Coding Level of Care Code ED Oracle Manager for Nata Ugarte
[2022-06-06 19:29] VITALS: BP 123/74; PULSE 78; RESP 16; O2SAT 99
--- NOTE | 2022-06-06 19:39 | CTR_ITS ---
PROCEDURE INFORMATION: Exam: CT Head Without Contrast Exam date and time: 06/06/2022 7:59 PM Age: 72 years old Clinical indication: Dizziness; Additional info: Dizzy TECHNIQUE: Imaging protocol: Computed tomography of the head without contrast. Radiation optimization: All CT scans at this facility use at least one of these dose optimization techniques: automated exposure control; mA and/or kV adjustment per patient size (includes targeted exams where dose is matched to clinical indication); or iterative reconstruction. COMPARISON: CT head wo con* [id number] 05/30/2022 9:09 PM RADIATION DOSE METRICS: Total DLP (mGy-cm): 1245.58 FINDINGS: Brain: Mild to moderate cerebral atrophy and ischemic leukoencephalopathy. Cerebral ventricles: No ventriculomegaly. Paranasal sinuses: Visualized sinuses are unremarkable. No fluid levels. Mastoid air cells: Visualized mastoid air cells are well aerated. Bones/joints: Chronic bilateral nasal fractures with deviation to the right of midline. Soft tissues: Unremarkable. CT/CT head wo con* [id number] IMPRESSION: No acute intracranial findings.
--- NOTE | 2022-06-06 19:43 | ECG_ITS ---
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 Measurements Intervals [place] Rate: 81 P: 65 [place]: 191 QRS: -8 QRSD: 140 T: 24 QT: 397 QTc: 462 Interpretive Statements SINUS RHYTHM RIGHT BUNDLE BRANCH BLOCK [120+ ms QRS DURATION, UPRIGHT V1, 40+ ms S IN I/aVL/V4/V5/V6] Compared to ECG 05/31/2022 13:10:39 Sinus tachycardia no longer present Left-axis deviation no longer present Myocardial infarct finding no longer present Electronically Signed On 06-07-2022 10:18:34 CDT by Tor Paula M.D. [id number]
[2022-06-06 19:59] LABS: Basophils # 0.1 10^3/uL (0.0-0.1); Basophils % 0.5 %; Eosinophils # 0.1 10^3/uL (0.0-0.8); Eosinophils % 1.2 %; Hematocrit 35.8 % (42.0-52.0); Hemoglobin 11.2 g/dL (11.7-16.6); Lymphocytes # 1.6 10^3/uL (0.8-4.8); Lymphocytes % 15.4 %; Mean Corpuscular HGB Conc 31.3 g/dL (30.0-36.0); Mean Corpuscular Hemoglobin 27.7 pg (28.0-34.0); Mean Corpuscular Volume 88.6 fl (80-94); Mean Platelet Volume 8.9 fL (7.4-10.4); Monocytes # 0.8 10^3/uL (0.2-0.9); Monocytes % 7.4 %; Neutrophils # 7.75 10^3/uL (1.8-7.7); Nucleated Red Blood Cells % 0 %; Platelet Count 509 10^3/cmm (130-400); Red Blood Count 4.04 10^6/uL (4.1-5.3); White Blood Count 10.3 10^3/uL (4.0-10.0)
[2022-06-06 20:32] LABS: Troponin(5th) Baseline 16 ng/L (0-15)
[2022-06-06 20:42] LABS: Alanine Aminotransferase 14 U/L (0-41); Albumin Level 4.3 g/dL (3.5-5.2); Alkaline Phosphatase 73 U/L (40-130); Anion Gap 13.1 (5-19); Aspartate Amino Transferase 17 U/L (0-40); Blood Urea Nitrogen 15 mg/dL (8-23); Calcium 9.6 mg/dL (8.5-10.5); Carbon Dioxide 26 mmol/L (22-29); Chloride 95 mmol/L (98-107); Globulin 3.7 g/dL (1.3-4.6); Glucose 78 mg/dL (65-115); Magnesium 2.4 mg/dL (1.7-2.3); Osmolality Calculated 270 mOsm/kg (285-295); Potassium 4.1 mmol/L (3.5-5.1); Sodium 130 mmol/L (136-145); Thyroid Stimulating Hormone 1.71 uIU/mL (0.27-4.20); Total Bilirubin 0.3 mg/dL (0.15-1.2)
== END 2022-06-06 20:51 | disposition left against medical advice (07) ==
PROVIDERS: Emergency Provider Emergency Medicine
DX: R42 Dizziness and giddiness (principal); H93.19 Tinnitus, unspecified ear; E86.0 Dehydration; Z53.21 Procedure and treatment not carried out due to patient leaving prior to being seen by health care provider
CPT/HCPCS: 70450; 80053; 83735; 84443; 84484; 85025; 93005; 99285

== ENCOUNTER 2022-06-10 09:55 | Emergency (ER) | payer MEDICARE, SELFPAY ==
[2022-06-10 10:04] VITALS: BP 118/73; PULSE 99; RESP 18; TEMP 36.5; O2SAT 96; BMI 25.8
[2022-06-10 10:21] VITALS: BP 140/87; PULSE 91; O2SAT 99
--- NOTE | 2022-06-10 10:44 | XRR_ITS ---
PROCEDURE INFORMATION: Exam: XR Chest Exam date and time: 06/10/2022 11:00 AM Age: 72 years old Clinical indication: Pain; Angina pectoris; Additional info: Cp TECHNIQUE: Imaging protocol: Radiologic exam of the chest. Views: 1 view. COMPARISON: CR XR chest 2V insp/exp [id number] 06/01/2022 8:01 AM FINDINGS: Lungs: Eventration of the right hemidiaphragm.. No consolidation. Pleural spaces: Unremarkable. No pleural effusion. No pneumothorax. Heart/Mediastinum: Heart is not enlarged. There is a large hiatal hernia. Bones/joints: Unremarkable. XR/XR chest 1V portable [id number] IMPRESSION: 1. No acute abnormality. 2. Large hiatal hernia.
--- NOTE | 2022-06-10 10:45 | ECG_ITS ---
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 Measurements Intervals [place] Rate: 86 P: 52 [place]: 189 QRS: -16 QRSD: 136 T: 30 QT: 389 QTc: 468 Interpretive Statements SINUS RHYTHM RIGHT BUNDLE BRANCH BLOCK [120+ ms QRS DURATION, UPRIGHT V1, 40+ ms S IN I/aVL/V4/V5/V6] Compared to ECG 06/06/2022 19:43:57 No significant changes Electronically Signed On 06-10-2022 12:06:48 CDT by Radha Dickens M.D. [id number]
[2022-06-10 10:50] LABS: Basophils # 0.1 10^3/uL (0.0-0.1); Basophils % 0.4 %; Eosinophils # 0.1 10^3/uL (0.0-0.8); Eosinophils % 0.7 %; Hematocrit 31.9 % (42.0-52.0); Lymphocytes % 8.8 %; Mean Corpuscular HGB Conc 31.3 g/dL (30.0-36.0); Mean Corpuscular Hemoglobin 27.3 pg (28.0-34.0); Mean Corpuscular Volume 87.2 fl (80-94); Mean Platelet Volume 8.9 fL (7.4-10.4); Monocytes % 8.2 %; Neutrophils % 81.6 %; Nucleated Red Blood Cells % 0 %; Platelet Count 530 10^3/cmm (130-400); Red Blood Count 3.66 10^6/uL (4.1-5.3); Red Cell Distribution Width 15.6 % (12.1-15.1); White Blood Count 11.6 10^3/uL (4.0-10.0)
--- NOTE | 2022-06-10 10:51 | W.ED.DIZZY ---
Documented by User: JM Verma 06/11/22 14:49 HPI - Dizziness General: Chief Complaint: Dizziness Stated Complaint: Dizziness, ears ringing Time Seen by Provider: 06/10/22 10:06 History of Present Illness: HPI Narrative: Patient is a 72-year-old male who comes to the ED with dizziness. Patient was seen here in the ED for same complaint a couple days ago on June 06. Patient has been having dizziness symptoms now for the past several months. He also reports having ringing in his ears that started within the last couple weeks. Patient has been seen here in the ED multiple times over the last few months for dizziness. He is also complaining of having acid reflux symptoms that started approximately 3 days ago. His symptoms get worse at night when he lays down and has trouble sleeping due to the acid reflux. Here in the ED this morning he said his acid reflux symptoms have resolved unless he lays flat. He has been taking baking soda and water to try to help with his acid reflux symptoms. He is not currently on any daily medication for his acid reflux. Denies any recent falls or head trauma since last ED visit a couple days ago. Patient admits to being a frequent alcohol user. Associated symptoms: Denies chest pain, chills, headache(s), nausea, nasal congestion, palpitations or vomiting Associated neuro symptoms: Deny numbness in extremities Review of Systems Const: Denies: fever(s), chills or fatigue Eyes: Denies: change in vision or eye discomfort ENMT: Denies: throat pain, odynophagia, nasal discharge or nasal congestion Card: Denies: chest pain, palpitations, edema, swelling of feet/ankles, dyspnea on exertion or orthopnea Resp: Denies: dyspnea, productive cough or non-productive cough GI: Reports: heartburn; Denies: abdominal pain, nausea, vomiting, diarrhea, constipation or hematochezia : Denies: flank pain, difficulty urinating, dysuria or hematuria Musc: Denies: neck pain, back pain or extremity swelling Skin/Breast: Denies: rash or new lesions Neuro: Reports: dizziness; Denies: headache(s), numbness in extremities or weakness in extremities PFS ED PFSH: Medical History Abrasion of face Acute confusion Alcohol abuse For the moment the patient's sober. He is competent, per my assessment today, to assume responsibility for his health care and wellbeing. Alcoholism Balance disorder Concussion without loss of consciousness Encephalopathy Gait disorder Hematoma Hepatic encephalopathy Laceration of scalp Liver cirrhosis Pneumothorax Recurrent falls Surgical History H/O inguinal hernia repair Family History Denies family history of Clotting disorder Dementia Chronic kidney disease (CKD) Cancer Social History Smoking and tobacco status: never smoked Alcohol intake: current Lives independently: Yes Household members: other Details: He lives alone Housing: House Marital status: Single Marital status details: Not in contact with his children, 2 sisters try to check up on him, sister Marely Barkley from [place] [phone] Physical Exam Const: COMMON NORMALS: no acute distress, patient oriented x3 and alert GENERAL APPEARANCE: cooperative and comfortable HENMT: COMMON NORMALS: normocephalic HEAD & SCALP: normocephalic MOUTH: Normal oral and palatal mucosa present THROAT: posterior oropharynx normal and uvula midline Eye: COMMON NORMALS: Equal, round and reactive pupils present and EOMs intact bilaterally GENERAL EYE: appearance normal, both eyes and all related structures PUPIL: Yes Equal, round and reactive pupils present Neck/C-Spine: COMMON NORMALS: supple GENERAL: Yes normal visual inspection Lymph: LYMPHATIC: no lymphadenopathy noted Resp: COMMON NORMALS: normal respiratory effort, No retractions, No use of accessory muscles and clear to auscultation bilaterally AUSCULTATION: clear to auscultation bilaterally Cardio: COMMON NORMALS: regular rate, regular rhythm, S1 normal heart sound present, S2 normal heart sound present, No gallops present (Cardio), No clicks present (Cardio), No murmurs present (Cardio) and Peripheral pulses 2+ throughout RATE: regular rate RHYTHM: regular rhythm HEART SOUNDS: S1 normal heart sound present and S2 normal heart sound present PERIPHERAL PULSES: Peripheral pulses 2+ throughout GI: COMMON NORMALS: Normal to inspection, nondistended, normoactive bowel sounds present, Soft to palpation, non-tender and no masses PALPATION: Yes Soft to palpation : COMMON NORMALS: Yes no CVA tenderness BLADDER/KIDNEY EXAM: Yes no CVA tenderness Back/Pelvis: COMMON NORMALS: no CVA tenderness Extremity: GENERAL: Yes normal exam except as noted Neuro: COMMON NORMALS: patient oriented x3, CN's II-XII intact bilaterally, moves all extremities, no focal motor deficits and no sensory deficits noted SENSORIUM/ORIENTATION: Yes alert SENSORY EXAM: Yes extremities (intact) MOTOR EXAM: 5/5 motor strength present throughout Skin: COMMON NORMALS: no rashes or lesions noted GENERAL SKIN EXAM: no rashes or lesions noted and dry skin Course Vital Signs: Vital signs: Vital Signs Temperature 97.7 F 06/10/22 10:04 Pulse Rate 89 06/10/22 13:23 Respiratory Rate 18 06/10/22 10:04 Blood Pressure 128/74 06/10/22 13:24 Pulse Oximetry 99 06/10/22 13:23 Oxygen Delivery Me thod 06/10/22 10:04 MDM - Dizziness Medical Decision Making Patient is a 72-year-old male comes to the ED with chronic dizziness and epigastric pain. Patient is not on any current PPI says his epigastric pain has been going on for the past 3 days and he describes it as a burning pain that worsens when he lays down at night. Patient has been seen for his dizziness and ears ringing multiple times and has been referred to ENT and is getting scheduled for an appointment. No acute change in dizziness or ear ringing. Vitals are stable patient appears nontoxic no acute distress or pain. Exam is benign. White blood cell count 11.6 and hemoglobin 10 the rest of CBC and CMP were unremarkable. Chest x-ray shows no acute abnormality but a large hiatal hernia. Troponin was negative and EKG showed no acute signs or changes. Patient was given GI cocktail and Protonix here in the ED. A order was placed to case management for him to be referred to general surgery for large hiatal hernia. Patient diagnosed with GERD, large hiatal hernia and M?ni?re's disease. He was discharged home with a prescription for Protonix. Told to follow-up with his PCP within the next week for reevaluation. He was told to get set up his appointment with ENT to be evaluated for his M?ni?re's disease. Patient was stable for discharge home. Return to ED precautions given. Lab Data I reviewed the patient's lab results. : 06/10/22 10:20 06/10/22 10:20 Radiology Impressions Chest X-Ray 06/10/22 10:44 IMPRESSION: 1. No acute abnormality. 2. Large hiatal hernia. Laboratory Results WBC 11.6 10^3/uL (4.0-10.0) H 06/10/22 10:20 RBC 3.66 10^6/uL (4.1-5.3) L 06/10/22 10:20 Hgb 10.0 g/dL (11.7-16.6) L 06/10/22 10:20 Hct 31.9 % (42.0-52.0) L 06/10/22 10:20 MCV 87.2 fl (80-94) 06/10/22 10:20 MCH 27.3 pg (28.0-34.0) L 06/10/22 10:20 MCHC 31.3 g/dL (30.0-36.0) 06/10/22 10:20 RDW 15.6 % (12.1-15.1) H 06/10/22 10:20 Plt Count 530 10^3/cmm (130-400) H 06/10/22 10:20 MPV 8.9 fL (7.4-10.4) 06/10/22 10:20 Neut % (Auto) 81.6 % 06/10/22 10:20 Lymph % (Auto) 8.8 % 06/10/22 10:20 [place] % (Auto) 8.2 % 06/10/22 10:20 Eos % (Auto) 0.7 % 06/10/22 10:20 Baso % (Auto) 0.4 % 06/10/22 10:20 Neut # (Auto) 9.50 10^3/uL (1.8-7.7) H 06/10/22 10:20 Lymph # (Auto) 1.0 10^3/uL (0.8-4.8) 06/10/22 10:20 [place] # (Auto) 1.0 10^3/uL (0.2-0.9) H 06/10/22 10:20 Eos # (Auto) 0.1 10^3/uL (0.0-0.8) 06/10/22 10:20 Baso # (Auto) 0.1 10^3/uL (0.0-0.1) 06/10/22 10:20 Nucleated RBC % (auto) 0 % 06/10/22 10:20 Nucleated RBCs # 0.0 /100WBC 06/10/22 10:20 Sodium 136 mmol/L (136-145) 06/10/22 10:20 Potassium 3.8 mmol/L (3.5-5.1) 06/10/22 10:20 Chloride 101 mmol/L (98-107) 06/10/22 10:20 Carbon Dioxide 25 mmol/L (22-29) 06/10/22 10:20 Anion Gap 13.8 (5-19) 06/10/22 10:20 BUN 18 mg/dL (8-23) 06/10/22 10:20 Creatinine 0.8 mg/dL (0.7-1.2) 06/10/22 10:20 GFR Calculation Not Reportable 06/10/22 10:20 Glucose 109 mg/dL (65-115) 06/10/22 10:20 Calculated Osmolality 284 mOsm/kg (285-295) L 06/10/22 10:20 Calcium 9.4 mg/dL (8.5-10.5) 06/10/22 10:20 Total Bilirubin 0.4 mg/dL (0.15-1.2) 06/10/22 10:20 AST 15 U/L (0-40) 06/10/22 10:20 ALT 11 U/L (0-41) 06/10/22 10:20 Alkaline Phosphatase 71 U/L (40-130) 06/10/22 10:20 Troponin T Baseline 15 ng/L (0-15) 06/10/22 10:20 Total Protein 7.3 g/dL (6.6-8.7) 06/10/22 10:20 Albumin 4.4 g/dL (3.5-5.2) 06/10/22 10:20 Globulin 2.9 g/dL (1.3-4.6) 06/10/22 10:20 EKG Data EKG 1: EKG interpretation date: 06/10/22 Computer generated interpretation: [employer] [address] Electrocardiograph Report Signed Patient: Canelo Lara Unit #: [id number] : 1950 Age/Sex: 72 / M ADM Date: 06/10/22 Loc: ER Room/Bed: Attending Dr: Ordering Provider/Ordering MD: Ivan Diaz Date of Service: 06/10/22 Procedure(s): ECG 12 lead EKG Accession Number(s): [id number] Report Number: [id number] ? [facility] ? Test Date:? ? 2022-06-10 Pat Name: ? ? Canelo Lara? Department: ? Patient ID: ? [id number] ? Room: ? Gender: ? ? ? Male ? Import Manager: ? :? 1950 ? Requested By: Ivan Diaz Order Number: [id number]? Reading MD: ? Radha Dickens M.D. ? Measurements Intervals? [place]? Rate: ? 86 ? P:? 52 WI: ? 189? QRS:? -16 QRSD: ? 136? T:? 30 QT: ? 389? QTc:? 468? Interpretive Statements SINUS RHYTHM RIGHT BUNDLE BRANCH BLOCK? [120+ ms QRS DURATION, UPRIGHT V1, 40+ ms S IN I/aVL/V4/V5/V6] Compared to ECG 06/06/2022 19:43:57 No significant changes Electronically Signed On 06-10-2022 12:06:48 CDT by Radha Dickens M.D. [email or web address] Dictated By: Radha Dickens MD Signed By: Radha Dickens MD Signed Date/Time: 06/10/22 1208 DD/ 1055 Discharge Plan Discharge Patient Disposition: Home Clinical Impression: Large hiatal hernia GERD (gastroesophageal reflux disease) Qualifiers: Esophagitis presence: esophagitis presence not specified Qualified Code(s): K21.9 - Gastro-esophageal reflux disease without esophagitis Menieres disease Qualifiers: Laterality: unspecified laterality Qualified Code(s): H81.09 - Meniere's disease, unspecified ear Condition: Stable Prescriptions: New pantoprazole 40 mg tablet,delayed release (DR/EC) 40 mg PO DAILY Qty: 30 0RF No Action multivitamin Tablet 1 tab PO DAILY ibuprofen 200 mg Tablet 400 - 600 mg PO Q6H PRN (Reason: Pain) folic acid 1 mg Tablet 1 mg PO DAILY Qty: 60 0RF thiamine HCl (vitamin B1) 100 mg tablet 100 mg PO DAILY Qty: 90 2RF losartan 25 mg tablet 50 mg PO DAILY Qty: 60 0RF amlodipine 5 mg tablet 5 mg PO DAILY Qty: 60 0RF Discharge Orders: Discharge ED (Routine); Ordered 06/10/22 Ordered By: Ivan Diaz Referrals: Nolvia Sam [Primary Care Provider] - Discharge Diet: Regular Discharge Activity: Increase activity as tolerated Patient Instructions: Hiatal Hernia (DC), Meniere Disease (ED), GERD (Gastroesophageal Reflux Disease) (DC) Activity Restrictions/Additional Instructions: Follow-up with medical provider as directed. Contact the ENT office you were referred to to set up an appoint with them to have your dizziness and ear ringing evaluated.. Case management will also be set an appointment with general surgery for follow-up on her large hiatal hernia. Take medications as prescribed. Return to the ER or your medical provider if condition worsens. Please read and understand discharge instructions. Thank you for choosing [facility] for your healthcare needs today. Please realize this is an emergency room and that we are providing you with a medical screening exam and this may not be complete and all inclusive of all the testing and or work up that you may need to determine your ailment or severity of your illness. It is very important that you follow up as instructed or that you return to the Emergency Department should you have concerns or if your condition changes or worsens in any way. Coding Level of Care Code ED Bracelet Maker Novelty for Chg Fwd Exam Comprehensive Documented by User: Jose Rafael Mcnally MD 06/16/22 10:38 HPI - Dizziness General: Chief Complaint: Dizziness Stated Complaint: Dizziness, ears ringing Time Seen by Provider: 06/10/22 10:06 [facility] ED PFSH: Medical History Abrasion of face Acute confusion Alcohol abuse For the moment the patient's sober. He is competent, per my assessment today, to assume responsibility for his health care and wellbeing. Alcoholism Balance disorder Concussion without loss of consciousness Encephalopathy Gait disorder Hematoma Hepatic encephalopathy Laceration of scalp Liver cirrhosis Pneumothorax Recurrent falls Surgical History H/O inguinal hernia repair Family History Denies family history of Clotting disorder Dementia Chronic kidney disease (CKD) Cancer Social History Smoking and tobacco status: never smoked Alcohol intake: current Lives independently: Yes Household members: other Details: He lives alone Housing: House Marital status: Single Marital status details: Not in contact with his children, 2 sisters try to check up on him, sister Marely Barkley from [place] [phone] Course Vital Signs: Vital signs: Vital Signs Temperature 97.7 F 06/10/22 10:04 Pulse Rate 89 06/10/22 13:23 Respiratory Rate 18 11/02/22 10:04 Blood Pressure 128/74 06/10/22 13:24 Pulse Oximetry 99 06/10/22 13:23 Oxygen Delivery Me thod 06/10/22 10:04 MDM - Dizziness Medical Decision Making Patient is a 72-year-old male comes to the ED with chronic dizziness and epigastric pain. Patient is not on any current PPI says his epigastric pain has been going on for the past 3 days and he describes it as a burning pain that worsens when he lays down at night. Patient has been seen for his dizziness and ears ringing multiple times and has been referred to ENT and is getting scheduled for an appointment. No acute change in dizziness or ear ringing. Vitals are stable patient appears nontoxic no acute distress or pain. Exam is benign. White blood cell count 11.6 and hemoglobin 10 the rest of CBC and CMP were unremarkable. Chest x-ray shows no acute abnormality but a large hiatal hernia. Troponin was negative and EKG showed no acute signs or changes. Patient was given GI cocktail and Protonix here in the ED. A order was placed to case management for him to be referred to general surgery for large hiatal hernia. Patient diagnosed with GERD, large hiatal hernia and M?ni?re's disease. He was discharged home with a prescription for Protonix. Told to follow-up with his PCP within the next week for reevaluation. He was told to get set up his appointment with ENT to be evaluated for his M?ni?re's disease. Patient was stable for discharge home. Return to ED precautions given. I discussed this case with JM Verma. I have reviewed documentation. Jose Rafael Mcnally MD Emergency Medicine Lab Data : 06/10/22 10:20 06/10/22 10:20 Radiology Impressions Chest X-Ray 06/10/22 10:44 IMPRESSION: 1. No acute abnormality. 2. Large hiatal hernia. Laboratory Results WBC 11.6 10^3/uL (4.0-10.0) H 06/10/22 10:20 RBC 3.66 10^6/uL (4.1-5.3) L 06/10/22 10:20 Hgb 10.0 g/dL (11.7-16.6) L 06/10/22 10:20 Hct 31.9 % (42.0-52.0) L 06/10/22 10:20 MCV 87.2 fl (80-94) 06/10/22 10:20 MCH 27.3 pg (28.0-34.0) L 06/10/22 10:20 MCHC 31.3 g/dL (30.0-36.0) 06/10/22 10:20 RDW 15.6 % (12.1-15.1) H 06/10/22 10:20 Plt Count 530 10^3/cmm (130-400) H 06/10/22 10:20 MPV 8.9 fL (7.4-10.4) 06/10/22 10:20 Neut % (Auto) 81.6 % 06/10/22 10:20 Lymph % (Auto) 8.8 % 06/10/22 10:20 [place] % (Auto) 8.2 % 06/10/22 10:20 Eos % (Auto) 0.7 % 06/10/22 10:20 Baso % (Auto) 0.4 % 06/10/22 10:20 Neut # (Auto) 9.50 10^3/uL (1.8-7.7) H 06/10/22 10:20 Lymph # (Auto) 1.0 10^3/uL (0.8-4.8) 06/10/22 10:20 [place] # (Auto) 1.0 10^3/uL (0.2-0.9) H 06/10/22 10:20 Eos # (Auto) 0.1 10^3/uL (0.0-0.8) 06/10/22 10:20 Baso # (Auto) 0.1 10^3/uL (0.0-0.1) 06/10/22 10:20 Nucleated RBC % (auto) 0 % 06/10/22 10:20 Nucleated RBCs # 0.0 /100WBC 06/10/22 10:20 Sodium 136 mmol/L (136-145) 06/10/22 10:20 Potassium 3.8 mmol/L (3.5-5.1) 06/10/22 10:20 Chloride 101 mmol/L (98-107) 06/10/22 10:20 Carbon Dioxide 25 mmol/L (22-29) 06/10/22 10:20 Anion Gap 13.8 (5-19) 06/10/22 10:20 BUN 18 mg/dL (8-23) 06/10/22 10:20 Creatinine 0.8 mg/dL (0.7-1.2) 06/10/22 10:20 GFR Calculation Not Reportable 06/10/22 10:20 Glucose 109 mg/dL (65-115) 06/10/22 10:20 Calculated Osmolality 284 mOsm/kg (285-295) L 06/10/22 10:20 Calcium 9.4 mg/dL (8.5-10.5) 06/10/22 10:20 Total Bilirubin 0.4 mg/dL (0.15-1.2) 06/10/22 10:20 AST 15 U/L (0-40) 06/10/22 10:20 ALT 11 U/L (0-41) 06/10/22 10:20 Alkaline Phosphatase 71 U/L (40-130) 06/10/22 10:20 Troponin T Baseline 15 ng/L (0-15) 06/10/22 10:20 Total Protein 7.3 g/dL (6.6-8.7) 06/10/22 10:20 Albumin 4.4 g/dL (3.5-5.2) 06/10/22 10:20 Globulin 2.9 g/dL (1.3-4.6) 06/10/22 10:20 Discharge Plan Discharge Patient Disposition: Home Clinical Impression: Large hiatal hernia GERD (gastroesophageal reflux disease) Qualifiers: Esophagitis presence: esophagitis presence not specified Qualified Code(s): K21.9 - Gastro-esophageal reflux disease without esophagitis Menieres disease Qualifiers: Laterality: unspecified laterality Qualified Code(s): H81.09 - Meniere's disease, unspecified ear Condition: Stable Prescriptions: New pantoprazole 40 mg tablet,delayed release (DR/EC) 40 mg PO DAILY Qty: 30 0RF No Action multivitamin Tablet 1 tab PO DAILY ibuprofen 200 mg Tablet 400 - 600 mg PO Q6H PRN (Reason: Pain) folic acid 1 mg Tablet 1 mg PO DAILY Qty: 60 0RF thiamine HCl (vitamin B1) 100 mg tablet 100 mg PO DAILY Qty: 90 2RF losartan 25 mg tablet 50 mg PO DAILY Qty: 60 0RF amlodipine 5 mg tablet 5 mg PO DAILY Qty: 60 0RF Discharge Orders: Discharge ED (Routine); Ordered 06/10/22 Ordered By: Ivan Diaz Referrals: Nolvia Sam [Primary Care Provider] - Discharge Diet: Regular Discharge Activity: Increase activity as tolerated Patient Instructions: Hiatal Hernia (DC), Meniere Disease (ED), GERD (Gastroesophageal Reflux Disease) (DC) Activity Restrictions/Additional Instructions: Follow-up with medical provider as directed. Contact the ENT office you were referred to to set up an appoint with them to have your dizziness and ear ringing evaluated.. Case management will also be set an appointment with general surgery for follow-up on her large hiatal hernia. Take medications as prescribed. Return to the ER or your medical provider if condition worsens. Please read and understand discharge instructions. Thank you for choosing [facility] for your healthcare needs today. Please realize this is an emergency room and that we are providing you with a medical screening exam and this may not be complete and all inclusive of all the testing and or work up that you may need to determine your ailment or severity of your illness. It is very important that you follow up as instructed or that you return to the Emergency Department should you have concerns or if your condition changes or worsens in any way. Coding Level of Care Code ED Bracelet Maker Novelty for [place] Fwd Exam Comprehensive
[2022-06-10 11:18] LABS: Troponin(5th) Baseline 15 ng/L (0-15)
[2022-06-10 11:20] VITALS: BP 134/84; BP 146/87; BP 149/86; PULSE 91; PULSE 93; PULSE 95
[2022-06-10 11:22] LABS: Alanine Aminotransferase 11 U/L (0-41); Albumin Level 4.4 g/dL (3.5-5.2); Alkaline Phosphatase 71 U/L (40-130); Anion Gap 13.8 (5-19); Aspartate Amino Transferase 15 U/L (0-40); Blood Urea Nitrogen 18 mg/dL (8-23); Calcium 9.4 mg/dL (8.5-10.5); Carbon Dioxide 25 mmol/L (22-29); Chloride 101 mmol/L (98-107); Globulin 2.9 g/dL (1.3-4.6); Glucose 109 mg/dL (65-115); Osmolality Calculated 284 mOsm/kg (285-295); Potassium 3.8 mmol/L (3.5-5.1); Sodium 136 mmol/L (136-145); Total Bilirubin 0.4 mg/dL (0.15-1.2); Total Protein 7.3 g/dL (6.6-8.7)
[2022-06-10 11:39] VITALS: BP 119/89; PULSE 84; O2SAT 100
[2022-06-10] MEDS: lidocaine 2% viscous 15 ML, aluminum-mag hydrox-simethicon 30 ML, sucralfate oral liq 1 GM PO (13:15)
[2022-06-10] MEDS: pantoprazole 40 mg SDV IVP (13:18)
[2022-06-10 13:23] VITALS: PULSE 89; O2SAT 99
[2022-06-10 13:24] VITALS: BP 128/74
--- NOTE | 2022-06-10 13:55 | DCPLANNER ---
Addendum entered by Katya Mcginnis 07/21/22 13:23: this appointment was cancelled Addendum entered by Katya Mcginnis 06/11/22 15:54: Patient has a follow up appointment scheduled for Thursday, June 30, 2022 at 9:[address] Haile. welfare project manager informed patient of the scheduled appointment. Original Note: welfare project manager had message to schedule a follow up appointment for patient with general surgery. welfare project manager sent patients information to the front office staff at general surgery. Patients information will be printed and reviewed. Clinic will call patient with appointment information.
== END 2022-06-10 13:24 | disposition home or self-care (01) ==
PROVIDERS: Emergency Provider Physician Assistant
DX: K21.9 Gastro-esophageal reflux disease without esophagitis (principal); H81.09 Meniere's disease, unspecified ear; K44.9 Diaphragmatic hernia without obstruction or gangrene
CPT/HCPCS: 71045; 80053; 84484; 85025; 93005; 96374; 99285; C9113

== ENCOUNTER 2022-07-22 12:36 | Emergency (ER) | payer MEDICARE, SELFPAY ==
[2022-07-22 12:44] VITALS: BP 133/68; PULSE 100; RESP 15; TEMP 36.4; O2SAT 100; BMI 25.8
--- NOTE | 2022-07-22 13:11 | W.ED.DIZZY ---
HPI - Dizziness General: Chief Complaint: Dizziness Stated Complaint: dizziness Time Seen by Provider: 07/22/22 12:55 History of Present Illness: HPI Narrative: Patient is a 72-year-old male who comes to the ED with dizziness. Patient has chronic dizziness and has been seen here in the ED for same complaint multiple times. He has been seen by ENT for further evaluation of dizziness. He states that he was taking meclizine daily to help with his symptoms. His dizziness was better controlled with the meclizine 12.5 mg tablets 3 times daily as needed for dizziness. Patient states that he ran out of his medication and needs a refill. Denies any recent fall injuries or any other complaints. Associated symptoms: Denies chest pain, chills, headache(s), nausea, nasal congestion, palpitations or vomiting Associated neuro symptoms: Deny numbness in extremities Review of Systems Const: Denies: fever(s), chills or fatigue Eyes: Denies: change in vision or eye discomfort ENMT: Denies: throat pain, odynophagia, nasal discharge or nasal congestion Card: Denies: chest pain, palpitations, edema, swelling of feet/ankles, dyspnea on exertion or orthopnea Resp: Denies: dyspnea, productive cough or non-productive cough GI: Denies: abdominal pain, nausea, vomiting, diarrhea, constipation or hematochezia : Denies: flank pain, difficulty urinating, dysuria or hematuria Musc: Denies: neck pain, back pain or extremity swelling Skin/Breast: Denies: rash or new lesions Neuro: Reports: dizziness (chronic dizziness); Denies: headache(s), numbness in extremities or weakness in extremities [facility] ED PFSH: Medical History Abrasion of face Acute confusion Alcohol abuse For the moment the patient's sober. He is competent, per my assessment today, to assume responsibility for his health care and wellbeing. Alcoholism Concussion without loss of consciousness Encephalopathy Gait disorder Hepatic encephalopathy Hypertension Laceration of scalp Large hiatal hernia Liver cirrhosis Pneumothorax Recurrent falls Surgical History H/O inguinal hernia repair Family History Denies family history of Clotting disorder Dementia Chronic kidney disease (CKD) Cancer Social History Smoking and tobacco status: never smoked Alcohol intake: current Lives independently: Yes Household members: other Details: He lives alone Housing: House Marital status: Single Marital status details: Not in contact with his children, 2 sisters try to check up on him, sister Marely Barkley from [place] [phone] Physical Exam Const: COMMON NORMALS: patient oriented x3 HENMT: COMMON NORMALS: normocephalic HEAD & SCALP: normocephalic MOUTH: Normal oral and palatal mucosa present THROAT: posterior oropharynx normal and uvula midline Neck/C-Spine: COMMON NORMALS: supple GENERAL: Yes normal visual inspection Resp: COMMON NORMALS: normal respiratory effort, No retractions, No use of accessory muscles and clear to auscultation bilaterally AUSCULTATION: clear to auscultation bilaterally Cardio: COMMON NORMALS: regular rate, regular rhythm, S1 normal heart sound present, S2 normal heart sound present, No gallops present (Cardio), No clicks present (Cardio), No murmurs present (Cardio) and Peripheral pulses 2+ throughout RATE: regular rate RHYTHM: regular rhythm HEART SOUNDS: S1 normal heart sound present and S2 normal heart sound present PERIPHERAL PULSES: Peripheral pulses 2+ throughout GI: COMMON NORMALS: Normal to inspection, nondistended, normoactive bowel sounds present, Soft to palpation, non-tender and no masses PALPATION: Yes Soft to palpation : COMMON NORMALS: Yes no CVA tenderness BLADDER/KIDNEY EXAM: Yes no CVA tenderness Back/Pelvis: COMMON NORMALS: no CVA tenderness Extremity: COMMON NORMALS: normal to inspection Neuro: COMMON NORMALS: patient oriented x3 GAIT: Yes Normal gait present Skin: GENERAL SKIN EXAM: dry skin Course Vital Signs: Vital signs: Vital Signs Temperature 97.6 F 07/22/22 12:44 Pulse Rate 100 07/22/22 12:44 Respiratory Rate 15 07/22/22 12:44 Blood Pressure 133/68 07/22/22 12:44 Pulse Oximetry 100 07/22/22 12:44 Oxygen Delivery Me thod 07/22/22 12:44 MDM - Dizziness Medical Decision Making Patient is a 72-year-old male who comes to the ED with dizziness. Patient has chronic dizziness and has been seen here in the ED for same complaint multiple times. He has been seen by ENT for further evaluation of dizziness. He states that he was taking meclizine daily to help with his symptoms. His dizziness was better controlled with the meclizine 12.5 mg tablets 3 times daily as needed for dizziness. Patient states that he ran out of his medication and needs a refill. Denies any recent falls. Vitals are stable. Exam of patient is benign. He is diagnosed with medication refill encounter and dizziness. He was given a dose of meclizine here in the ED and discharged home with a prescription for meclizine. Told to follow-up with his PCP within the next week for reevaluation. Return to ED precautions given. Patient understood and agreed with plan. Discharge Plan Discharge Patient Disposition: Home Clinical Impression: Encounter for medication refill, Dizziness Condition: Stable Prescriptions: New meclizine 25 mg tablet 25 mg PO BID PRN (Reason: dizziness) Qty: 60 0RF No Action meclizine 12.5 mg tablet 12.5 mg PO TID PRN (Reason: dizziness/ringing) Qty: 90 2RF multivitamin Tablet 1 tab PO DAILY ibuprofen 200 mg Tablet 400 - 600 mg PO Q6H PRN (Reason: Pain) folic acid 1 mg Tablet 1 mg PO DAILY Qty: 60 0RF thiamine HCl (vitamin B1) 100 mg tablet 100 mg PO DAILY Qty: 90 2RF losartan 25 mg tablet 50 mg PO DAILY Qty: 60 0RF amlodipine 5 mg tablet 5 mg PO DAILY Qty: 60 0RF pantoprazole 40 mg tablet,delayed release (DR/EC) 40 mg PO DAILY Qty: 30 0RF Discharge Orders: Discharge ED (Routine); Ordered 07/22/22 Ordered By: Ivan Diza Referrals: Rosalinda Marie FNP [Primary Care Provider] - Discharge Diet: Regular Discharge Activity: Increase activity as tolerated Patient Instructions: Dizziness (ED) Activity Restrictions/Additional Instructions: Follow-up with medical provider as directed in the next 5 to 7 days for reevaluation. Take medications as prescribed. Return to the ER or your medical provider if condition worsens. Please read and understand discharge instructions. Thank you for choosing [facility] for your healthcare needs today. Please realize this is an emergency room and that we are providing you with a medical screening exam and this may not be complete and all inclusive of all the testing and or work up that you may need to determine your ailment or severity of your illness. It is very important that you follow up as instructed or that you return to the Emergency Department should you have concerns or if your condition changes or worsens in any way. Coding Level of Care Code ED Financial Sales Representative for Nata Fwestella Exam Comprehensive
== END 2022-07-22 13:29 | disposition home or self-care (01) ==
PROVIDERS: Emergency Provider Physician Assistant; PCP Nurse Practitioner Family
DX: R42 Dizziness and giddiness (principal); Z76.0 Encounter for issue of repeat prescription; I10 Essential (primary) hypertension
CPT/HCPCS: 99283

== ENCOUNTER 2022-09-26 19:20 | Emergency (ER) | payer MEDICARE, SELFPAY ==
--- NOTE | 2022-09-26 19:20 | W.ED.CHESTPA ---
HPI - Chest Pain General: Chief Complaint: Abdominal Pain Stated Complaint: CP Time Seen by Provider: 09/26/22 19:20 Limitations: altered mental status History of Present Illness: Mr. Lara is a 72-year-old gentleman with history of hypertension, cirrhosis presenting to the emergency department for multiple concerns. He reports longstanding history of dizziness though feels that this is perhaps worse lately. He also has gas chest pain in his abdomen. History seems to be somewhat limited secondary to patient's mental status, he presents with law enforcement. Prior episodes: Yes Severity: moderate Relieving factors: nothing Exacerbating factors: nothing Review of Systems General: Reports: 10 or more systems reviewed and unremarkable except in HPI and below PFSH ED PFSH: Medical History Abrasion of face Acute confusion Alcohol abuse For the moment the patient's sober. He is competent, per my assessment today, to assume responsibility for his health care and wellbeing. Alcoholism Concussion without loss of consciousness Encephalopathy Gait disorder Hepatic encephalopathy Hypertension Insomnia disorder Laceration of scalp Large hiatal hernia Liver cirrhosis Pneumothorax Recurrent falls Surgical History H/O inguinal hernia repair Family History Denies family history of Clotting disorder Dementia Chronic kidney disease (CKD) Cancer Social History Smoking and tobacco status: never smoked Alcohol intake: current Lives independently: Yes Household members: other Details: He lives alone Housing: House Marital status: Single Marital status details: Not in contact with his children, 2 sisters try to check up on him, sister Marely Barkley from [place] [phone] Physical Exam Const: COMMON NORMALS: alert GENERAL APPEARANCE: cooperative and well developed HENMT: COMMON NORMALS: normocephalic and atraumatic HEAD & SCALP: normocephalic and atraumatic THROAT: posterior oropharynx normal Eye: COMMON NORMALS: conjunctivae normal CONJUNCTIVA: Yes conjunctivae normal SCLERA: sclerae normal Neck/C-Spine: COMMON NORMALS: supple GENERAL: Yes trachea midline Resp: COMMON NORMALS: normal respiratory effort EFFORT & INSPECTION: Yes able to speak in complete sentences Cardio: COMMON NORMALS: regular rate and regular rhythm RATE: regular rate RHYTHM: regular rhythm GI: COMMON NORMALS: Soft to palpation PALPATION: Yes Soft to palpation and No Tenderness to palpation present (GI) Extremity: GENERAL: Yes normal exam except as noted and No edema Neuro: COMMON NORMALS: CN's II-XII intact bilaterally, moves all extremities, no focal motor deficits and no sensory deficits noted SENSORIUM/ORIENTATION: Yes alert and No Orientation impaired Course Vital Signs: Vital signs: Vital Signs Temperature 98.4 F 09/26/22 19:21 Pulse Rate 94 09/26/22 21:18 Respiratory Rate 18 09/26/22 21:18 Blood Pressure 108/73 09/26/22 21:18 Pulse Oximetry 99 09/26/22 21:18 MDM - Chest Pain Medical Decision Making 72-year-old gentleman presenting for various concerns. EMS report was for chest pain patient endorses there is other symptoms that are largely unchanged from baseline. Reliability history seems questionable and therefore patient requires further evaluation. He is nontoxic in appearance. EKG notable for sinus rhythm with right bundle branch block, no STEMI. Labs with mild leukocytosis with history of similar, microcytic anemia, minimal hyponatremia and evidence of dehydration. No UTI. Negative troponin. No abnormality acutely on head CT. Chest x-ray with no lobar consolidation or pneumothorax. Most likely etiology of patient's symptoms is unclear. Per patient report essentially baseline chronic findings. Patient adamantly wants to be discharged. The results of ED evaluation were discussed with the patient including prescriptions and/or symptomatic cares (if applicable) including appropriate and responsible use, followup plan, and return precautions. The patient verbalized understanding and felt safe for discharge. Patient left with law enforcement. Medical Records I reviewed the patient's medical records. Lab Data I reviewed the patient's lab results. 09/26/22 19:10 09/26/22 19:10 Radiology Impressions Chest X-Ray 09/26/22 19:30 IMPRESSION: No evidence for acute cardiopulmonary disease. Non acute findings as described above. Head CT 09/26/22 19:30 IMPRESSION: There are senescent changes of the brain as described above. No evidence for large acute ischemic infarction or acute intracranial injury. Laboratory Results WBC 12.8 10^3/uL (4.0-10.0) H 09/26/22 19:10 RBC 4.85 10^6/uL (4.1-5.3) 09/26/22 19:10 Hgb 9.6 g/dL (11.7-16.6) L 09/26/22 19:10 Hct 34.9 % (42.0-52.0) L 09/26/22 19:10 MCV 72.0 fl (80-94) L 09/26/22 19:10 MCH 19.8 pg (28.0-34.0) L 09/26/22 19:10 MCHC 27.5 g/dL (30.0-36.0) L 09/26/22 19:10 RDW 18.6 % (12.1-15.1) H 09/26/22 19:10 Plt Count 450 10^3/cmm (130-400) H 09/26/22 19:10 MPV 10.0 fL (7.4-10.4) 09/26/22 19:10 Neut % (Auto) 70.2 % 09/26/22 19:10 Lymph % (Auto) 18.4 % 09/26/22 19:10 [place] % (Auto) 8.3 % 09/26/22 19:10 Eos % (Auto) 2.3 % 09/26/22 19:10 Baso % (Auto) 0.3 % 09/26/22 19:10 Neut # (Auto) 9.03 10^3/uL (1.8-7.7) H 09/26/22 19:10 Lymph # (Auto) 2.4 10^3/uL (0.8-4.8) 09/26/22 19:10 [place] # (Auto) 1.1 10^3/uL (0.2-0.9) H 09/26/22 19:10 Eos # (Auto) 0.3 10^3/uL (0.0-0.8) 09/26/22 19:10 Baso # (Auto) 0.0 10^3/uL (0.0-0.1) 09/26/22 19:10 Nucleated RBC % (auto) 0 % 09/26/22 19:10 Nucleated RBCs # 0.0 /100WBC 09/26/22 19:10 Sodium 135 mmol/L (136-145) L 09/26/22 19:10 Potassium 4.6 mmol/L (3.5-5.1) 09/26/22 19:10 Chloride 99 mmol/L (98-107) 09/26/22 19:10 Carbon Dioxide 25 mmol/L (22-29) 09/26/22 19:10 Anion Gap 15.6 (5-19) 09/26/22 19:10 BUN 23 mg/dL (8-23) 09/26/22 19:10 Creatinine 0.9 mg/dL (0.7-1.2) 09/26/22 19:10 GFR Calculation Not Reportable 09/26/22 19:10 Glucose 111 mg/dL (65-115) 09/26/22 19:10 Calculated Osmolality 284 mOsm/kg (285-295) L 09/26/22 19:10 Calcium 9.2 mg/dL (8.5-10.5) 09/26/22 19:10 Total Bilirubin 0.3 mg/dL (0.15-1.2) 09/26/22 19:10 AST 22 U/L (0-40) 09/26/22 19:10 ALT 16 U/L (0-41) 09/26/22 19:10 Alkaline Phosphatase 72 U/L (40-130) 09/26/22 19:10 Troponin T Baseline 11 ng/L (0-15) 09/26/22 19:10 Total Protein 6.7 g/dL (6.6-8.7) 09/26/22 19:10 Albumin 4.3 g/dL (3.5-5.2) 09/26/22 19:10 Globulin 2.4 g/dL (1.3-4.6) 09/26/22 19:10 TSH 2.32 uIU/mL (0.27-4.20) 09/26/22 19:10 Urine Color Yellow (Yellow) 09/26/22 20:54 Urine Appearance Clear (CLEAR) 09/26/22 20:54 Urine pH 5 (5-7) 09/26/22 20:54 Ur Specific [place] 1.020 (1.005-1.030) 09/26/22 20:54 Urine Protein Neg (Negative) 09/26/22 20:54 Urine Glucose (UA) Norm (Normal) 09/26/22 20:54 Urine Ketones Negative (Negative) 09/26/22 20:54 Urine Blood Neg (Negative) 09/26/22 20:54 Urine Nitrate Negative (Negative) 09/26/22 20:54 Urine Bilirubin Neg (Negative) 09/26/22 20:54 Urine Urobilinogen Neg mg/dL (Negative) 09/26/22 20:54 Ur Leukocyte Esterase Negative (Negative) 09/26/22 20:54 Discharge Plan Discharge Patient Disposition: Home Clinical Impression: Gait disorder, Abdominal pain, chronic, epigastric, Dehydration, Chronic anemia Condition: Stable Prescriptions: No Action meclizine 12.5 mg tablet 12.5 mg PO TID PRN (Reason: dizziness/ringing) Qty: 90 2RF prednisone 20 mg tablet 40 mg PO DAILY 5 Days Qty: 10 0RF nortriptyline 10 mg capsule 10 mg PO DAILY PRN (Reason: insomnia) Qty: 30 2RF multivitamin Tablet 1 tab PO DAILY ibuprofen 200 mg Tablet 400 - 600 mg PO Q6H PRN (Reason: Pain) folic acid 1 mg Tablet 1 mg PO DAILY Qty: 60 0RF thiamine HCl (vitamin B1) 100 mg tablet 100 mg PO DAILY Qty: 90 2RF losartan 25 mg tablet 50 mg PO DAILY Qty: 60 0RF amlodipine 5 mg tablet 5 mg PO DAILY Qty: 60 0RF meclizine 25 mg tablet 25 mg PO BID PRN (Reason: dizziness) Qty: 60 0RF Discharge Orders: Discharge ED (Routine); Ordered 09/26/22 Ordered By: Jose Rafael Mcnally Referrals: David Menon MD [Primary Care Provider] - Discharge Diet: Usual diet Discharge Activity: Increase activity as tolerated Patient Instructions: Dehydration (ED), Abdominal Pain (ED), Dizziness (ED) Activity Restrictions/Additional Instructions: Thank you for visiting the emergency department. You were seen and evaluated for unsteady/dizziness, chronic abdominal pain, and possible chest pain. The exact cause of your symptoms is unclear though does not appear to need hospitalization at this time. You were found to have mild dehydration, make sure that you are staying hydrated. I recommend follow-up with a primary care provider for management of chronic medical conditions. Return to the emergency department for anything that you are concerned about and feel needs emergency department evaluation. Mr Lara is fit for confinement. Coding Level of Care Code ED Mechanical Car Checker for Nata Ugarte
[2022-09-26 19:21] VITALS: BP 119/89; PULSE 97; RESP 17; TEMP 36.9; O2SAT 98; BMI 28.8
--- NOTE | 2022-09-26 19:30 | CTR_ITS ---
PROCEDURE INFORMATION: Exam: CT Head Without Contrast Exam date and time: 09/26/2022 7:58 PM Age: 72 years old Clinical indication: Altered mental status/memory loss and dizziness TECHNIQUE: Imaging protocol: Computed tomography of the head without contrast. Radiation optimization: All CT scans at this facility use at least one of these dose optimization techniques: automated exposure control; mA and/or kV adjustment per patient size (includes targeted exams where dose is matched to clinical indication); or iterative reconstruction. Other protocol: This patient has received 6 known CTs and 0 known cardiac nuclear medicine studies in the 12 months prior to the current study. COMPARISON: CT head wo con* [id number] 06/06/2022 7:59 PM RADIATION DOSE METRICS: Total DLP (mGy-cm): 1293.08 FINDINGS: Brain: Calcified plaque is present within the intracranial vasculature. [id number] generalized cerebral atrophy.Periventricular and subcortical white matter low densities are present which at this age likely represent microvascular ischemic change. No evidence for large acute ischemic infarction. Benign globus pallidus calcifications are present. Please note acute ischemia can be occult by head CT. No evidence for acute intracranial hemorrhage. Cerebral ventricles: No ventriculomegaly. Paranasal sinuses: Visualized sinuses are unremarkable. No fluid levels. Mastoid air cells: Visualized mastoid air cells are well aerated. Bones/joints: Chronic nasal bone fractures with rightward nasal bone deviation is stable when compared to the prior study. Soft tissues: Unremarkable. CT/CT head wo con* [id number] IMPRESSION: There are senescent changes of the brain as described above. No evidence for large acute ischemic infarction or acute intracranial injury.
--- NOTE | 2022-09-26 19:30 | XRR_ITS ---
PROCEDURE INFORMATION: Exam: XR Chest Exam date and time: 09/26/2022 7:40 PM Age: 72 years old Clinical indication: Patient HX: PT. Brought in by [facility] for chest pain/epigastric pain. PT. States that he has dizziness, gas pain in his stomach. PT. Has history of ulcers and hernia repairs TECHNIQUE: Imaging protocol: Radiologic exam of the chest. Views: 1 view. COMPARISON: CR XR chest 1V portable [id number] 06/10/2022 11:00 AM FINDINGS: Lungs: Unremarkable. No consolidation. Pleural spaces: Unremarkable. No pleural effusion. No pneumothorax. Heart/Mediastinum: Moderate to large hiatal hernia appears similar to the prior study. Diaphragm: Eventration of the right hemidiaphragm, also seen on the prior study. Bones/joints: Multiple old left rib fracture sites also seen on the prior study. XR/XR chest 1V portable [id number] IMPRESSION: No evidence for acute cardiopulmonary disease. Non acute findings as described above.
--- NOTE | 2022-09-26 19:31 | ECG_ITS ---
[facility] Test Date: 2022-09-26 Pat Name: Canelo Lara Department: Room: Gender: Male Emt/Dispatcher: : 1950 Requested By: Jose Rafael Mcnally Order Number: [id number] Esperanza MD: Will Lobato M.D. Measurements Intervals [place] Rate: 94 P: 7 CT: 173 QRS: -16 QRSD: 138 T: 1 QT: 361 QTc: 453 Interpretive Statements SINUS RHYTHM RIGHT BUNDLE BRANCH BLOCK [120+ ms QRS DURATION, UPRIGHT V1, 40+ ms S IN I/aVL/V4/V5/V6] Compared to ECG 06/10/2022 10:55:37 No significant changes Electronically Signed On 09-26-2022 19:40:21 TALENT RECRUITER by Will Lobato M.D. [id number]
[2022-09-26 19:47] LABS: Basophils % 0.3 %; Eosinophils # 0.3 10^3/uL (0.0-0.8); Eosinophils % 2.3 %; Hematocrit 34.9 % (42.0-52.0); Hemoglobin 9.6 g/dL (11.7-16.6); Lymphocytes # 2.4 10^3/uL (0.8-4.8); Lymphocytes % 18.4 %; Mean Corpuscular HGB Conc 27.5 g/dL (30.0-36.0); Mean Corpuscular Hemoglobin 19.8 pg (28.0-34.0); Monocytes # 1.1 10^3/uL (0.2-0.9); Monocytes % 8.3 %; Neutrophils # 9.03 10^3/uL (1.8-7.7); Neutrophils % 70.2 %; Nucleated Red Blood Cells % 0 %; Platelet Count 450 10^3/cmm (130-400); Red Blood Count 4.85 10^6/uL (4.1-5.3); Red Cell Distribution Width 18.6 % (12.1-15.1); White Blood Count 12.8 10^3/uL (4.0-10.0)
[2022-09-26 20:03] LABS: Troponin(5th) Baseline 11 ng/L (0-15)
[2022-09-26 20:12] LABS: Alanine Aminotransferase 16 U/L (0-41); Albumin Level 4.3 g/dL (3.5-5.2); Alkaline Phosphatase 72 U/L (40-130); Anion Gap 15.6 (5-19); Aspartate Amino Transferase 22 U/L (0-40); Blood Urea Nitrogen 23 mg/dL (8-23); Calcium 9.2 mg/dL (8.5-10.5); Carbon Dioxide 25 mmol/L (22-29); Chloride 99 mmol/L (98-107); Globulin 2.4 g/dL (1.3-4.6); Glucose 111 mg/dL (65-115); Osmolality Calculated 284 mOsm/kg (285-295); Potassium 4.6 mmol/L (3.5-5.1); Sodium 135 mmol/L (136-145); Thyroid Stimulating Hormone 2.32 uIU/mL (0.27-4.20); Total Bilirubin 0.3 mg/dL (0.15-1.2); Total Protein 6.7 g/dL (6.6-8.7)
[2022-09-26 21:03] LABS: Add Urine Microscopic? NO; Charge for UA Resulting for Rev
[2022-09-26 21:13] LABS: Bilirubin Urine Neg (Negative); Blood Urine Neg (Negative); Glucose Urine UA Norm (Normal); Ketones Urine Negative (Negative); Leukocyte Esterase Urine Negative (Negative); Nitrate Urine Negative (Negative); Protein Urine Neg (Negative); Urine Appearance Clear (CLEAR); Urine Color Yellow (Yellow); Urobilinogen Urine Neg (Negative); pH Urine 5 (5-7)
[2022-09-26 21:18] VITALS: BP 108/73; PULSE 94; RESP 18; O2SAT 99
== END 2022-09-26 21:20 | disposition home or self-care (01) ==
PROVIDERS: Emergency Provider Emergency Medicine; PCP Family Medicine Adult Medicine
DX: R26.9 Unspecified abnormalities of gait and mobility (principal); G89.29 Other chronic pain; R10.13 Epigastric pain; E86.0 Dehydration; D53.9 Nutritional anemia, unspecified; I10 Essential (primary) hypertension
CPT/HCPCS: 70450; 71045; 80053; 81003; 84443; 84484; 85025; 93005; 99285

== ENCOUNTER 2022-10-13 11:23 | Emergency (ER) | payer MEDICARE, SELFPAY ==
[2022-10-13 11:24] VITALS: BP 143/86; PULSE 96; RESP 18; TEMP 37.1; O2SAT 98; BMI 25.8
--- NOTE | 2022-10-13 11:27 | ECG_ITS ---
[facility] Test Date: 2022-10-13 Pat Name: Canelo Lara Department: Room: Gender: Male Director Of [facility]: : 1950 Requested By: Andrea Rubin Order Number: [id number] Esperanza MD: Tor Paula M.D. Measurements Intervals [place] Rate: 87 P: 50 MA: 174 QRS: -13 QRSD: 134 T: 14 QT: 363 QTc: 439 Interpretive Statements SINUS RHYTHM RIGHT BUNDLE BRANCH BLOCK [120+ ms QRS DURATION, UPRIGHT V1, 40+ ms S IN I/aVL/V4/V5/V6] Compared to ECG 09/26/2022 19:38:06 No significant changes Electronically Signed On 10-13-2022 18:17:32 DEMO SPECIALIST by Tor Paula M.D. [id number]
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
--- NOTE | 2022-10-13 12:34 | PC.NURSE ---
SEE PROVIDERS NOTE FOR ASSESSMENT
== END 2022-10-13 12:35 | disposition home or self-care (01) ==
PROVIDERS: Emergency Provider Family Medicine; PCP Family Medicine Adult Medicine
DX: R42 Dizziness and giddiness (principal); R26.81 Unsteadiness on feet; F10.10 Alcohol abuse, uncomplicated; Y90.9 Presence of alcohol in blood, level not specified; I10 Essential (primary) hypertension
CPT/HCPCS: 93005; 99283

== ENCOUNTER 2022-11-23 13:02 | Emergency (ER) | payer MEDICARE, SELFPAY ==
[2022-11-23 13:08] VITALS: BP 130/79; PULSE 97; RESP 19; TEMP 36.3; O2SAT 99; BMI 26.6
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
== END 2022-11-23 14:59 | disposition home or self-care (01) ==
PROVIDERS: Emergency Provider Physician Assistant; PCP Family Medicine Adult Medicine
DX: R42 Dizziness and giddiness (principal); I10 Essential (primary) hypertension
CPT/HCPCS: 99283

== ENCOUNTER 2022-12-20 12:10 | Emergency (ER) | payer MEDICARE, MEDICAID, SELFPAY ==
[2022-12-20 12:17] VITALS: BP 145/94; PULSE 91; TEMP 36.6; O2SAT 99; BMI 28.0
--- NOTE | 2022-12-20 12:40 | CTR_ITS ---
PROCEDURE INFORMATION: Exam: CT Lumbar Spine Without Contrast Exam date and time: 12/20/2022 12:52 PM Age: 72 years old Clinical indication: Low back pain with bilateral feet neuropathy TECHNIQUE: Imaging protocol: Computed tomography of the lumbar spine without contrast. Radiation optimization: All CT scans at this facility use at least one of these dose optimization techniques: automated exposure control; mA and/or kV adjustment per patient size (includes targeted exams where dose is matched to clinical indication); or iterative reconstruction. REPORTING DATA: Count of CT and Cardiac NM exams in prior 12 months: This patient has received 7 known CTs and 0 known cardiac nuclear medicine studies in the 12 months prior to the current study. COMPARISON: CR XR lumbar spine 2-3V* [id number] 11/14/2020 10:16 AM RADIATION DOSE METRICS: Total DLP (mGy-cm): 804.89 FINDINGS: Bones/joints: Subacute to chronic appearing anterior compression fracture of the L1 superior endplate without significant adjacent soft tissue changes. Grade 1 degenerative anterolisthesis of L4 on L5. There are degenerative changes throughout the visualized spine including marginal osteophyte formations, endplate degenerative changes, and facet arthropathy. Multilevel disc space narrowing. L1-L2: No significant disc bulge or herniation. No severe spinal canal stenosis. No significant neural foraminal narrowing. L2-L3: No significant disc bulge or herniation. No severe spinal canal stenosis. No significant neural foraminal narrowing. L3-L4: There is a broad-based disc osteophyte complex without significant canal stenosis. There is mild narrowing of the left neural foramen. L4-L5: Minimal disc bulge, posterior osteophytes, and severe hypertrophic facet arthropathy contributes to mild canal and bilateral neural foraminal narrowing. L5-S1: No significant disc bulge or herniation. No severe spinal canal stenosis. No significant neural foraminal narrowing. Soft tissues: See Bones/joints finding. CT/CT lumbar spine wo con* [id number] IMPRESSION: 1. Subacute to chronic appearing anterior compression fracture of the L1 superior endplate without significant adjacent soft tissue changes. 2. Grade 1 degenerative anterolisthesis of L4 on L5. 3. There are degenerative changes as described above. No evidence for acute fracture.
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
[2022-12-20] MEDS: predniSONE 20 mg Tablet 60 MG PO (12:48)
[2022-12-20] MEDS: gabapentin 100 mg Capsule PO (12:48)
== END 2022-12-20 15:23 | disposition home or self-care (01) ==
PROVIDERS: Emergency Provider Emergency Medicine; PCP Family Medicine Adult Medicine
DX: M51.16 Intervertebral disc disorders with radiculopathy, lumbar region (principal); S32.010A Wedge compression fracture of first lumbar vertebra, initial encounter for closed fracture; I10 Essential (primary) hypertension; X58.XXXA Exposure to other specified factors, initial encounter
CPT/HCPCS: 72131; 97760; 99284; J7512; L0456

== ENCOUNTER 2023-01-19 09:29 | Emergency (ER) | payer MEDICARE, MEDICAID, SELFPAY ==
[2023-01-19 09:42] VITALS: BP 144/95; PULSE 92; RESP 18; TEMP 36.8; O2SAT 97; BMI 26.6
[2023-01-19 09:56] VITALS: BP 144/95; PULSE 85; RESP 18; O2SAT 95
--- NOTE | 2023-01-19 10:06 | PC.NURSE ---
THIS NURSE TRIED TO IRRIGATE AND CLEAN WOUND. PATIENT STATES TO STOP DUE TO PAIN. PROVIDER NOTIFIED.
--- NOTE | 2023-01-19 10:09 | ED_ITS ---
HPI - Dizziness General: Chief Complaint: Dizziness Stated Complaint: Veronica sent for head injury Time Seen by Provider: 01/19/23 09:55 Source: patient Mode of arrival: EMS History of Present Illness: HPI Narrative: 72-year-old male presents emergency room complaining of a fall. He states last night he got up around 2 AM he did not use his cane he initially tells me that he tripped because he had not used his cane he fell and hit his head above the left eye he has a laceration there is dried eschar and is not actively bleeding. He denies vomiting or diarrhea. Patient has a long history of dizziness. There is also a history of alcohol use is a question of cerebellar ataxia peripheral neuropathy. We had seen him in October at that point he had not had his follow-ups with Dr. Krueger or Dr. Martin according to notes in the chart. The nursing notes state that he was directed here by Dr. Martin's office although there is no clinic note in the chart. MD elicited complaint: dizziness Pertinent past history: recent head injury Onset (ago): year(s) Severity: mild Description: sense of movement Context: change in body position History of similar symptoms: Yes Exacerbating factors: movement/ambulation and change in body position Relieving factors: rest and lying down Associated symptoms: Denies abnormal vaginal bleeding, change in hearing, chest pain, chills, cough, diaphoresis, ear discharge, ear pressure, fevers/chills, headache(s), malaise, nausea, nasal congestion, palpitations, rash, short of breath, syncope, tinnitus, vomiting or weakness Review of Systems Const: Denies: fever(s), chills, malaise or diaphoresis ENMT: Denies: ear discharge, change in hearing, tinnitus or nasal congestion Card: Denies: chest pain, palpitations or syncope Resp: Denies: dyspnea, productive cough or non-productive cough GI: Denies: abdominal pain, nausea or vomiting : Denies: flank pain, dysuria, urinary frequency or urinary urgency Musc: Denies: neck pain Skin/Breast: Denies: rash or pruritus Neuro: Reports: dizziness and vertigo; Denies: headache(s) PFSH ED PFSH: Medical History Abrasion of face Acute confusion Alcohol abuse For the moment the patient's sober. He is competent, per my assessment today, to assume responsibility for his health care and wellbeing. Alcoholism Concussion without loss of consciousness Encephalopathy Gait disorder Hepatic encephalopathy Hypertension Insomnia disorder Laceration of scalp Large hiatal hernia Liver cirrhosis Pneumothorax Recurrent falls Surgical History H/O inguinal hernia repair Family History Denies family history of Clotting disorder Dementia Chronic kidney disease (CKD) Cancer Social History Smoking and tobacco status: never smoked Alcohol intake: current Substance/Drug Use: never Lives independently: Yes Household members: other Details: He lives alone Housing: House Marital status: Single Marital status details: Not in contact with his children, 2 sisters try to check up on him, sister Marely Barkley from [place] [phone] Physical Exam Const: GENERAL APPEARANCE: cooperative and comfortable ORIENTATION/CONSCIOUSNESS: Yes awake, Yes oriented to person, Yes oriented to place and Yes oriented to time HENMT: COMMON NORMALS: normocephalic and hearing grossly normal bilaterally HEAD & SCALP: normocephalic OTHER: Stellate laceration above the left eye no deformity of the supraorbital ridge pupils equal and reactive extraocular movements intact Resp: COMMON NORMALS: normal respiratory effort, No retractions, No use of accessory muscles and clear to auscultation bilaterally AUSCULTATION: clear to auscultation bilaterally Cardio: COMMON NORMALS: regular rate, regular rhythm and No murmurs present (Cardio) RATE: regular rate RHYTHM: regular rhythm GI: COMMON NORMALS: Soft to palpation and No hepatosplenomegaly present AUSCULTATION: Yes normoactive bowel sounds PALPATION: Yes Soft to palpation, No Tenderness to palpation present (GI), No Guarding due to palpation present (GI) and Yes No hepatosplenomegaly present Extremity: COMMON NORMALS: normal to inspection, capillary refill normal, no clubbing, cyanosis or edema, no calf tenderness and no pedal edema Neuro: SENSORIUM/ORIENTATION: Yes oriented to person, Yes oriented to place and Yes oriented to time Skin: COMMON NORMALS: no rashes or lesions noted GENERAL SKIN EXAM: no rashes or lesions noted Procedures Laceration Laceration 1: Site: face Side (If applicable): left Size (cm): 4 Description: linear Depth: simple, single layer Local Anesthetic: lidocaine 1% Amount of anesthesia used (mL): 3 Skin layer closed with: nylon Size (cm): 4-0 Number of sutures: 4 Technique: simple, interrupted Course Vital Signs: Vital signs: Vital Signs Temperature 98.3 F 01/19/23 09:42 Pulse Rate 75 01/19/23 13:16 Respiratory Rate 16 01/19/23 13:16 Blood Pressure 169/105 01/19/23 13:16 Pulse Oximetry 97 01/19/23 13:16 Oxygen Delivery Me thod Room Air 01/19/23 11:56 MDM - Dizziness Medical Decision Making Wound closed and dressed. Reviewed CT findings with the patient. They are negative. He has had problems with dizziness and falls. Some concern according to previous notes of peripheral neuropathy or cerebellar ataxia related to alcohol use in the past. He has not had his follow-up with neurology or ENT yet this is been arranged for by his primary care encouraged him to follow through with these as they may help his symptoms. Wound care instructions given sutures removed in 5 to 7 days. Medical Records I reviewed the patient's medical records. Lab Data I reviewed the patient's lab results. 01/19/23 10:38 01/19/23 10:38 Radiology Impressions Cervical Spine CT 01/19/23 10:09 IMPRESSION: 1. No acute cervical spine fracture. 2. Multilevel mild to moderate facet joint arthritis and stenosis. Head CT 01/19/23 10:10 IMPRESSION: 1. No acute intracranial hemorrhage or edema. 2. Moderate atrophy and small vessel ischemic changes. 3. Diffuse mild ventriculomegaly probably on the basis of atrophy. 4. Soft tissue contusion centered over the LEFT frontal bone. 5. No acute skull fracture. Laboratory Results WBC 5.6 10^3/uL (4.0-10.0) 01/19/23 10:38 RBC 4.54 10^6/uL (4.1-5.3) 01/19/23 10:38 Hgb 10.9 g/dL (11.7-16.6) L 01/19/23 10:38 Hct 37.3 % (42.0-52.0) L 01/19/23 10:38 MCV 82.2 fl (80-94) 01/19/23 10:38 MCH 24.0 pg (28.0-34.0) L 01/19/23 10:38 MCHC 29.2 g/dL (30.0-36.0) L 01/19/23 10:38 RDW 19.9 % (12.1-15.1) H 01/19/23 10:38 Plt Count 293 10^3/cmm (130-400) 01/19/23 10:38 MPV 9.2 fL (7.4-10.4) 01/19/23 10:38 Neut % (Auto) 61.5 % 01/19/23 10:38 Lymph % (Auto) 22.0 % 01/19/23 10:38 [place] % (Auto) 10.5 % 01/19/23 10:38 Eos % (Auto) 4.9 % 01/19/23 10:38 Baso % (Auto) 0.9 % 01/19/23 10:38 Neut # (Auto) 3.42 10^3/uL (1.8-7.7) 01/19/23 10:38 Lymph # (Auto) 1.2 10^3/uL (0.8-4.8) 01/19/23 10:38 [place] # (Auto) 0.6 10^3/uL (0.2-0.9) 01/19/23 10:38 Eos # (Auto) 0.3 10^3/uL (0.0-0.8) 01/19/23 10:38 Baso # (Auto) 0.1 10^3/uL (0.0-0.1) 01/19/23 10:38 Nucleated RBC % (auto) 0 % 01/19/23 10:38 Nucleated RBCs # 0.0 /100WBC 01/19/23 10:38 Sodium 136 mmol/L (136-145) 01/19/23 10:38 Potassium 4.2 mmol/L (3.5-5.1) 01/19/23 10:38 Chloride 103 mmol/L (98-107) 01/19/23 10:38 Carbon Dioxide 23 mmol/L (22-29) 01/19/23 10:38 Anion Gap 14.2 (5-19) 01/19/23 10:38 BUN 11 mg/dL (8-23) 01/19/23 10:38 Creatinine 0.9 mg/dL (0.7-1.2) 01/19/23 10:38 GFR Calculation Not Reportable 01/19/23 10:38 Glucose 101 mg/dL (65-115) 01/19/23 10:38 Calculated Osmolality 282 mOsm/kg (285-295) L 01/19/23 10:38 Calcium 8.3 mg/dL (8.5-10.5) L 01/19/23 10:38 Total Bilirubin 0.3 mg/dL (0.15-1.2) 01/19/23 10:38 AST 24 U/L (0-40) 01/19/23 10:38 ALT 12 U/L (0-41) 01/19/23 10:38 Alkaline Phosphatase 66 U/L (40-130) 01/19/23 10:38 Total Protein 6.4 g/dL (6.6-8.7) L 01/19/23 10:38 Albumin 3.7 g/dL (3.5-5.2) 01/19/23 10:38 Globulin 2.7 g/dL (1.3-4.6) 01/19/23 10:38 Ethyl Alcohol < 10 mg/dL (0-10) 01/19/23 10:38 Discharge Plan Discharge Patient Disposition: Home Clinical Impression: Laceration of face, Fall Condition: Stable Prescriptions: New mupirocin 2 % ointment 1 applic topical BID Qty: 15 0RF dimenhydrinate 50 mg tablet 50 mg PO Q6H PRN (Reason: dizziness or vertigo) Qty: 30 0RF No Action prednisone 20 mg tablet 40 mg PO DAILY 5 Days Qty: 10 0RF nortriptyline 10 mg capsule 10 mg PO DAILY PRN (Reason: insomnia) Qty: 30 2RF multivitamin Tablet 1 tab PO DAILY ibuprofen 200 mg Tablet 400 - 600 mg PO Q6H PRN (Reason: Pain) folic acid 1 mg Tablet 1 mg PO DAILY Qty: 60 0RF thiamine HCl (vitamin B1) 100 mg tablet 100 mg PO DAILY Qty: 90 2RF losartan 25 mg tablet 50 mg PO DAILY Qty: 60 0RF amlodipine 5 mg tablet 5 mg PO DAILY Qty: 60 0RF dimenhydrinate 50 mg tablet 50 mg PO Q6H PRN (Reason: dizziness or vertigo) Qty: 20 0RF Neurontin 100 mg capsule 100 mg PO Q8H Qty: 14 0RF prednisone 20 mg tablet 20 mg PO DAILY Qty: 7 0RF tramadol 50 mg tablet 50 mg PO Q12H PRN (Reason: pain) Qty: 20 0RF Discharge Orders: Discharge ED (Routine); Ordered 01/19/23 Ordered By: Andrea Beltran Referrals: David Menon MD [Primary Care Provider] - Discharge Diet: Usual diet Discharge Activity: Increase activity as tolerated Patient Instructions: Facial Laceration (ED), Opioid Safety, Pain Management Activity Restrictions/Additional Instructions: Sutures should be removed in 5 to 7 days Coding Level of Care Code ED Metal [employer] for Nata Ugarte
--- NOTE | 2023-01-19 10:09 | CT_ITS ---
WS: [id number] CT CERVICAL SPINE HISTORY: trauma TECHNIQUE: Contiguous 2.0 mm axial imaging performed through the entire cervical spine. Sagittal and coronal reformats also performed. All CT scans at [facility] use at least one of these dose o ptimization techniques: automated exposure control; mA and/or kV adjustment per patient size (include s targeted exams where dose is matched to clinical indication); or iterative reconstruction. DLP: 219.37 mGy.cm COMPARISON: 05/28/2022 Normal alignment. Disc spaces are narrowed. Hypertrophic endplate osteophytes and mild facet arthriti s. Normal craniocervical junction. Lateral masses of C1 and C2 are aligned. Odontoid is intact. C2-C3: LEFT facet arthritis. No stenosis. C3-C4: Mild bilateral facet arthritis and foraminal stenosis. C4-C5: Bilateral facet arthritis and osteophytic ridging. Moderate RIGHT and mild LEFT foraminal sten osis. C5-C6: Osteophytic ridging encroaching upon the ventral thecal sac and foramina. Mild central with mo derate foraminal stenosis. C6-C7: Moderate bilateral foraminal stenosis. C7-T1: Normal. Lung apices are clear. Moderate carotid atherosclerotic plaque. CT/CT cervical spin wo con* [id number] IMPRESSION: 1. No acute cervical spine fracture. 2. Multilevel mild to moderate facet joint arthritis and stenosis.
--- NOTE | 2023-01-19 10:10 | CT_ITS ---
WS: [id number] CT HEAD NONCONTRAST HISTORY: trauma TECHNIQUE: Contiguous axial imaging performed through the brain in 2.5 mm imaging. Bone and soft tiss ue windows. Sagittal and coronal reformats reviewed. All CT scans at [facility] use at least one of these dose optimization techniques: automated exposure control; mA and/or kV adjustment per pa tient size (includes targeted exams where dose is matched to clinical indication); or iterative recon struction. DLP: 1169.68 mGy.cm COMPARISON: 09/26/2022 No acute intracranial hemorrhage, midline shift or mass effect. Moderate atrophy and small vessel ischemic changes throughout the white matter. Similar to the prior study. No cerebellar infarct. No large territory infarct. Ventricles: Diffuse mild ventriculomegaly. No intraventricular blood. No inferior displacement of the cerebellar tonsils. Paranasal sinuses: Minimal mucoperiosteal thickening in the maxillary sinuses and ethmoid air cells. No air-fluid levels. Mastoid air cells: Well pneumatized. Calvarium and scalp: No skull fracture. Metallic foreign body in the soft tissues of the LEFT forehea d is unchanged. Acute soft tissue hematoma centered in the LEFT for head. Consistent with recent fall . Remote fracture with deviation to the RIGHT of the nasal bones. CT/CT head wo con* [id number] IMPRESSION: 1. No acute intracranial hemorrhage or edema. 2. Moderate atrophy and small vessel ischemic changes. 3. Diffuse mild ventriculomegaly probably on the basis of atrophy. 4. Soft tissue contusion centered over the LEFT frontal bone. 5. No acute skull fracture.
[2023-01-19 11:07] LABS: Alanine Aminotransferase 12 U/L (0-41); Albumin Level 3.7 g/dL (3.5-5.2); Alkaline Phosphatase 66 U/L (40-130); Anion Gap 14.2 (5-19); Aspartate Amino Transferase 24 U/L (0-40); Blood Urea Nitrogen 11 mg/dL (8-23); Calcium 8.3 mg/dL (8.5-10.5); Carbon Dioxide 23 mmol/L (22-29); Chloride 103 mmol/L (98-107); Creatinine Clr Calc Pharmacy 78.7864; Globulin 2.7 g/dL (1.3-4.6); Glucose 101 mg/dL (65-115); Osmolality Calculated 282 mOsm/kg (285-295); Potassium 4.2 mmol/L (3.5-5.1); Sodium 136 mmol/L (136-145); Total Bilirubin 0.3 mg/dL (0.15-1.2); Total Protein 6.4 g/dL (6.6-8.7)
[2023-01-19 11:10] LABS: Alcohol Level < 10 mg/dL (0-10)
[2023-01-19 11:52] LABS: Basophils # 0.1 10^3/uL (0.0-0.1); Basophils % 0.9 %; Eosinophils # 0.3 10^3/uL (0.0-0.8); Eosinophils % 4.9 %; Hematocrit 37.3 % (42.0-52.0); Hemoglobin 10.9 g/dL (11.7-16.6); Lymphocytes # 1.2 10^3/uL (0.8-4.8); Mean Corpuscular HGB Conc 29.2 g/dL (30.0-36.0); Mean Corpuscular Volume 82.2 fl (80-94); Mean Platelet Volume 9.2 fL (7.4-10.4); Monocytes # 0.6 10^3/uL (0.2-0.9); Monocytes % 10.5 %; Neutrophils # 3.42 10^3/uL (1.8-7.7); Neutrophils % 61.5 %; Nucleated Red Blood Cells % 0 %; Platelet Count 293 10^3/cmm (130-400); Red Blood Count 4.54 10^6/uL (4.1-5.3); Red Cell Distribution Width 19.9 % (12.1-15.1); White Blood Count 5.6 10^3/uL (4.0-10.0)
[2023-01-19 11:56] VITALS: BP 161/106; PULSE 87; RESP 20; O2SAT 98
[2023-01-19] MEDS: bacitracin ointment Pkt 1 EACH TOPICAL (13:04)
[2023-01-19 13:16] VITALS: BP 169/105; PULSE 75; RESP 16; O2SAT 97
== END 2023-01-19 13:17 | disposition home or self-care (01) ==
PROVIDERS: Emergency Provider Family Medicine; PCP Family Medicine Adult Medicine
DX: S01.81XA Laceration without foreign body of other part of head, initial encounter (principal); W01.0XXA Fall on same level from slipping, tripping and stumbling without subsequent striking against object, initial encounter; I10 Essential (primary) hypertension
CPT/HCPCS: 12013; 36415; 70450; 72125; 80053; 80307; 85025; 99284

== ENCOUNTER 2023-01-31 19:43 | Emergency (ER) | payer MEDICARE, MEDICAID, SELFPAY ==
[2023-01-31 19:48] VITALS: BP 127/88; PULSE 98; RESP 20; TEMP 36.8; O2SAT 95; BMI 28.0
[2023-01-31 19:55] VITALS: O2SAT 94
--- NOTE | 2023-01-31 19:58 | CTR_ITS ---
PROCEDURE INFORMATION: Exam: CT Head Without Contrast Exam date and time: 01/31/2023 8:06 PM Age: 72 years old Clinical indication: Injury or trauma; Blunt trauma (contusions or hematomas); Patient HX: Patient was walking with cane and tripped falling face forward onto sidewalk. Laceration to left eyebrow. C/O head and neck pain. ; Additional info: Fall head injury anticoagulated TECHNIQUE: Imaging protocol: Computed tomography of the head without contrast. Radiation optimization: All CT scans at this facility use at least one of these dose optimization techniques: automated exposure control; mA and/or kV adjustment per patient size (includes targeted exams where dose is matched to clinical indication); or iterative reconstruction. REPORTING DATA: Count of CT and Cardiac NM exams in prior 12 months: This patient has received 10 known CTs and 0 known cardiac nuclear medicine studies in the 12 months prior to the current study. COMPARISON: CT head wo con* [id number] 01/19/2023 11:00 AM RADIATION DOSE METRICS: Total DLP (mGy-cm): 1154.98 FINDINGS: Brain: Mild diffuse white matter disease likely reflecting chronic microvascular ischemic changes. Cerebral ventricles: No ventriculomegaly. Paranasal sinuses: Visualized sinuses are unremarkable. No fluid levels. Mastoid air cells: Visualized mastoid air cells are well aerated. Bones/joints: Unremarkable. No acute fracture. Soft tissues: Unremarkable. 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 CT/CT head wo con* [id number] IMPRESSION: 1. Negative for intracranial hemorrhage or mass effect. 2. 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 3. Mild diffuse white matter disease likely reflecting chronic microvascular ischemic changes.
--- NOTE | 2023-01-31 19:58 | CTR_ITS ---
PROCEDURE INFORMATION: Exam: CT Cervical Spine Without Contrast Exam date and time: 01/31/2023 8:09 PM Age: 72 years old Clinical indication: Injury or trauma; Blunt trauma; Patient HX: Patient was walking with cane and tripped falling face forward onto sidewalk. Laceration to left eyebrow. C/O head and neck pain. ; Additional info: Fall head injury TECHNIQUE: Imaging protocol: Computed tomography of the cervical spine without contrast. Radiation optimization: All CT scans at this facility use at least one of these dose optimization techniques: automated exposure control; mA and/or kV adjustment per patient size (includes targeted exams where dose is matched to clinical indication); or iterative reconstruction. REPORTING DATA: Count of CT and Cardiac NM exams in prior 12 months: This patient has received 10 known CTs and 0 known cardiac nuclear medicine studies in the 12 months prior to the current study. COMPARISON: CT cervical spin wo con* [id number] 01/19/2023 11:06 AM RADIATION DOSE METRICS: Total DLP (mGy-cm): 152.07 FINDINGS: Bones/joints: Multilevel disc space narrowing and productive degenerative endplate changes throughout the spine. C2-C3: No significant disc bulge or herniation. No severe spinal canal stenosis. No significant neural foraminal narrowing. C3-C4: No significant disc bulge or herniation. No severe spinal canal stenosis. No significant neural foraminal narrowing. C4-C5: No significant disc bulge or herniation. No severe spinal canal stenosis. No significant neural foraminal narrowing. C5-C6: No significant disc bulge or herniation. No severe spinal canal stenosis. No significant neural foraminal narrowing. C6-C7: No significant disc bulge or herniation. No severe spinal canal stenosis. No significant neural foraminal narrowing. C7-T1: No significant disc bulge or herniation. No severe spinal canal stenosis. No significant neural foraminal narrowing. Mastoid air cells: Left mastoid air cell opacification may reflect a chronic infectious or inflammatory process. Lungs: Lung apices are normal. Vasculature: Scattered vascular calcifications. Soft tissues: Unremarkable. CT/CT cervical spin wo con* [id number] IMPRESSION: 1. Negative for intracranial hemorrhage or mass effect. 2. Left mastoid air cell opacification may reflect a chronic infectious or inflammatory process. 3. Multilevel disc space narrowing and productive degenerative endplate changes throughout the spine. 4. Scattered vascular calcifications.
--- NOTE | 2023-01-31 20:18 | W.ED.HEATRA ---
HPI - Head Injury General: Chief complaint: Head Injury Stated complaint: fall, head laceration Time Seen by Provider: 01/31/23 19:58 Source: patient Mode of arrival: ambulatory History of Present Illness: This is a 72 year old male with multiple ER visits in his history for similar complaints. He complains of a fall from a sidewalk, with head injury. 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 He has an abrasion and contusion to the left supraorbital area of his forehead, with opening of the laceration. He already has stitches in the area from a prior fall. He is very short with his answers on interview, and will not participate with interview or examination. Complaint: head injury Onset (ago): hour(s) Mechanism of Injury: fall Place: outdoors Loss of Consciousness: unsure Location of injury: frontal Severity: moderate Radiation: none Other Injuries: none Review of Systems General: Reports: ROS unobtainable due to medical condition (he is uncooperative on interview) Const: Denies: fever(s) Eyes: Denies: blurry vision Card: Denies: chest pain Resp: Denies: dyspnea Skin/Breast: Reports: rash Neuro: Reports: headache(s) PFSH ED PFSH: Medical History Abrasion of face Acute confusion Alcohol abuse For the moment the patient's sober. He is competent, per my assessment today, to assume responsibility for his health care and wellbeing. Alcoholism Concussion without loss of consciousness Encephalopathy Gait disorder Hepatic encephalopathy Hypertension Insomnia disorder Laceration of scalp Large hiatal hernia Liver cirrhosis Pneumothorax Recurrent falls Surgical History H/O inguinal hernia repair Family History Denies family history of Clotting disorder Dementia Chronic kidney disease (CKD) Cancer Social History Smoking and tobacco status: never smoked Alcohol intake: current Substance/Drug Use: never Lives independently: Yes Household members: other Details: He lives alone Housing: House Marital status: Single Marital status details: Not in contact with his children, 2 sisters try to check up on him, sister Marely Barkley from [place] [phone] Physical Exam Const: COMMON NORMALS: no acute distress and alert GENERAL APPEARANCE: comfortable; not cooperative, not lethargic and not ill appearing ORIENTATION/CONSCIOUSNESS: not lethargic HENMT: COMMON NORMALS: Normal external nose present HEAD & SCALP: contusion (slight supraorbital), hematoma and laceration (small 1.5-2cm L eyebrow) FACE & SINUS: normal facial exam NOSE: Normal external nose present and Normal nares present Eye: COMMON NORMALS: Equal, round and reactive pupils present and EOMs intact bilaterally PUPIL: Yes Equal, round and reactive pupils present Neck/C-Spine: COMMON NORMALS: full ROM GENERAL: Yes trachea midline CERVICAL SPINE: No Cervical spine tenderness and No step off deformity Chest: COMMONS NORMALS: normal inspection of the chest Resp: COMMON NORMALS: normal respiratory effort EFFORT & INSPECTION: Yes symmetric chest movement and No tachypneic Cardio: COMMON NORMALS: regular rate and regular rhythm RATE: regular rate RHYTHM: regular rhythm GI: INSPECTION: Yes normal to inspection Neuro: ROSA COMA SCALE: document GCS findings Rosa coma scale eye opening: Spontaneous [place] coma scale verbal response: Orientated [place] coma scale motor response: Obey commands Rosa coma scale total score: 15 SENSORIUM/ORIENTATION: Yes alert and No lethargic Skin: NARRATIVE SKIN EXAM: 2 centimeter small laceration in the left super orbital region of the eyebrow. There is surrounding abrasion. This is near a site of previous laceration repair. Course Vital Signs: Vital signs: Vital Signs Temperature 98.2 F 01/31/23 19:48 Pulse Rate 98 01/31/23 19:48 Respiratory Rate 20 H 01/31/23 19:48 Blood Pressure 127/88 01/31/23 19:48 Pulse Oximetry 94 01/31/23 19:55 Oxygen Delivery Me thod Room Air 01/31/23 19:55 MDM - Head Injury Medcial Decision Making As on previous ER visits, this gentleman is non cooperative, cantankerous, and obtuse. He refuses to let me examine him appropriately. He refuses cleaning and dressing in his wound by the nursing staff. He refuses any further evaluation. He is awake and alert. He states that he wants to go home. He has signed an AMA form. He'll be allowed discharge. His head CT is negative for any intracranial hemorrhage or Mass Effect. Lab Data Radiology Impressions Cervical Spine CT 01/31/23 19:58 IMPRESSION: 1. Negative for intracranial hemorrhage or mass effect. 2. Left mastoid air cell opacification may reflect a chronic infectious or inflammatory process. 3. Multilevel disc space narrowing and productive degenerative endplate changes throughout the spine. 4. Scattered vascular calcifications. ADDENDUM: 01/31/232052 First impression should read negative for fracture or dislocation. Head CT 01/31/23 19:58 IMPRESSION: 1. Negative for intracranial hemorrhage or mass effect. 2. 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 3. Mild diffuse white matter disease likely reflecting chronic microvascular ischemic changes. Discharge Plan Discharge Patient Disposition: Left Against Medical Advice Clinical Impression: Concussion without loss of consciousness, Laceration of scalp Condition: Stable Prescriptions: No Action multivitamin Tablet 1 tab PO DAILY ibuprofen 200 mg Tablet 400 - 600 mg PO Q6H PRN (Reason: Pain) folic acid 1 mg Tablet 1 mg PO DAILY Qty: 60 0RF thiamine HCl (vitamin B1) 100 mg tablet 100 mg PO DAILY Qty: 90 2RF losartan 25 mg tablet 50 mg PO DAILY Qty: 60 0RF mupirocin 2 % ointment 1 applic topical BID Qty: 15 0RF dimenhydrinate 50 mg tablet 50 mg PO Q6H PRN (Reason: dizziness or vertigo) Qty: 30 0RF tramadol 50 mg tablet 50 mg PO Q12H PRN (Reason: pain) Qty: 20 0RF ferrous sulfate [FeroSul] 325 mg (65 mg iron) tablet 325 mg PO DAILY gabapentin 100 mg capsule 100 mg PO Q8H PRN (Reason: Pain) Referrals: David Menon MD [Primary Care Provider] - Coding Level of Care Code ED Supervisor [place] for Nata Ugarte
[2023-01-31] MEDS: HYDROmorphone 1 mg/mL INJ 1 mL IM (20:52)
== END 2023-01-31 21:08 | disposition left against medical advice (07) ==
PROVIDERS: Emergency Provider Emergency Medicine; PCP Family Medicine Adult Medicine
DX: S06.0X0A Concussion without loss of consciousness, initial encounter (principal); S01.01XA Laceration without foreign body of scalp, initial encounter; I10 Essential (primary) hypertension; S00.83XA Contusion of other part of head, initial encounter; W10.1XXA Fall (on)(from) sidewalk curb, initial encounter
CPT/HCPCS: 70450; 72125; 96372; 99284; J1170

== ENCOUNTER 2023-02-02 04:49 | Inpatient (IN) | payer MEDICARE, SELFPAY ==
[2023-02-02] VITALS (40 sets, daily range): BP systolic 129–180; BP diastolic 69–123; PULSE 78–110; RESP 13–22; TEMP 37–37.8; O2SAT 94–100; BMI 26.6
--- NOTE | 2023-02-02 04:55 | W.ED.AMS ---
Documented by User: Jose Rafael Mcnally MD 02/14/23 19:20 HPI - Altered Mental Status General: Chief Complaint: Fall Stated Complaint: fall Time Seen by Provider: 02/02/23 04:54 Limitations: altered mental status History of Present Illness: 72-year-old gentleman presenting the emergency department for fall and shortness of breath. Patient is a poor historian and reports that he was having somewhere to meet up with friends. He was found facedown in a yard and seemed to be confused on scene. Also had increased work of breathing. He has a previous head injury and some bleeding noted. History is limited by mental status. Review of Systems General: Reports: ROS unobtainable due to mental status PFSH ED PFSH: Medical History Abrasion of face Acute confusion Alcohol abuse For the moment the patient's sober. He is competent, per my assessment today, to assume responsibility for his health care and wellbeing. Alcoholism Concussion without loss of consciousness Encephalopathy Gait disorder Hepatic encephalopathy Hypertension Insomnia disorder Laceration of scalp Large hiatal hernia Liver cirrhosis Pneumothorax Recurrent falls Surgical History H/O inguinal hernia repair Family History Denies family history of Clotting disorder Dementia Chronic kidney disease (CKD) Cancer Social History Smoking and tobacco status: never smoked Alcohol intake: current Substance/Drug Use: never Lives independently: Yes Household members: other Details: He lives alone Housing: House Marital status: Single Marital status details: Not in contact with his children, 2 sisters try to check up on him, sister Marely Barkley from [place] [phone] Physical Exam Const: COMMON NORMALS: alert GENERAL APPEARANCE: cooperative and well developed HENMT: COMMON NORMALS: normocephalic HEAD & SCALP: normocephalic OTHER: Prior left eyebrow region laceration with dried blood on the face. Eye: COMMON NORMALS: conjunctivae normal CONJUNCTIVA: Yes conjunctivae normal SCLERA: sclerae normal Neck/C-Spine: COMMON NORMALS: supple GENERAL: Yes trachea midline Resp: EFFORT & INSPECTION: Yes tachypneic AUSCULTATION: wheezes Cardio: COMMON NORMALS: regular rhythm RATE: tachycardic RHYTHM: regular rhythm GI: COMMON NORMALS: Soft to palpation PALPATION: Yes Soft to palpation and No Tenderness to palpation present (GI) Extremity: GENERAL: Yes normal exam except as noted and No edema Neuro: COMMON NORMALS: moves all extremities SENSORIUM/ORIENTATION: Yes alert and Yes Orientation impaired Course Vital Signs: Vital signs: Vital Signs Temperature 98.1 F 02/14/23 15:08 Pulse Rate 86 02/14/23 15:08 Respiratory Rate 16 02/14/23 15:08 Blood Pressure 114/69 02/14/23 15:08 Pulse Oximetry 95 02/14/23 15:08 Oxygen Delivery Me thod Room Air 02/14/23 15:08 MDM - Altered Mental Status Medical Decision Making 72-year-old gentleman presenting with found down altered mental status and respiratory symptoms. No focal neurologic deficits or active hemorrhage noted on exam. Handed off to Dr. Beltran pending completion of ED evaluation. Medical Records I reviewed the patient's medical records. Lab Data I reviewed the patient's lab results. 02/09/23 04:50 02/09/23 04:50 Radiology Impressions Hand X-Ray 02/04/23 14:07 IMPRESSION: 1. No fracture or dislocation. 2. Advanced degenerative changes. Knee X-Ray 02/05/23 13:37 IMPRESSION: 1. Chondrocalcinosis. No fracture. 2. Joint effusion suprapatellar bursa. Chest X-Ray 02/06/23 15:59 IMPRESSION: No evidence for acute cardiopulmonary disease. Head CT 02/11/23 18:34 IMPRESSION: 1. No acute intracranial abnormality. 2. Moderate age-related changes. 3. Moderate persistent ventriculomegaly is chronic. No acute hydrocephalus. NPH is possible. Laboratory Results WBC 14.4 10^3/uL (4.0-10.0) H 02/02/23 05:49 Corrected WBC Cancelled 02/02/23 04:58 RBC 4.45 10^6/uL (4.1-5.3) 02/02/23 05:49 Hgb 11.0 g/dL (11.7-16.6) L 02/02/23 05:49 Hct 37.8 % (42.0-52.0) L 02/02/23 05:49 MCV 84.9 fl (80-94) 02/02/23 05:49 MCH 24.7 pg (28.0-34.0) L 02/02/23 05:49 MCHC 29.1 g/dL (30.0-36.0) L 02/02/23 05:49 RDW 18.8 % (12.1-15.1) H 02/02/23 05:49 Plt Count 294 10^3/cmm (130-400) 02/02/23 05:49 MPV 9.4 fL (7.4-10.4) 02/02/23 05:49 Gran % Cancelled 02/02/23 04:58 Neut % (Auto) 78.5 % 02/02/23 05:49 Lymph % (Auto) 9.2 % 02/02/23 05:49 [place] % (Auto) 11.3 % 02/02/23 05:49 Eos % (Auto) 0.1 % 02/02/23 05:49 Baso % (Auto) 0.4 % 02/02/23 05:49 Neut # (Auto) 11.34 10^3/uL (1.8-7.7) H 02/02/23 05:49 Lymph # (Auto) 1.3 10^3/uL (0.8-4.8) 02/02/23 05:49 [place] # (Auto) 1.6 10^3/uL (0.2-0.9) H 02/02/23 05:49 Eos # (Auto) 0.0 10^3/uL (0.0-0.8) 02/02/23 05:49 Baso # (Auto) 0.1 10^3/uL (0.0-0.1) 02/02/23 05:49 Absolute Gran (auto) Cancelled 02/02/23 04:58 Nucleated RBC % (auto) 0 % 02/02/23 05:49 Nucleated RBCs # 0.0 /100WBC 02/02/23 05:49 PT 15.30 SECONDS (12.1-14.9) H 02/02/23 07:17 INR 1.17 (0.8-1.2) 02/02/23 07:17 APTT 28.0 SECONDS (23.9-36.7) 02/02/23 07:17 Sodium 134 mmol/L (136-145) L 02/02/23 04:58 Potassium 4.3 mmol/L (3.5-5.1) 02/02/23 04:58 Chloride 97 mmol/L (98-107) L 02/02/23 04:58 Carbon Dioxide 22 mmol/L (22-29) 02/02/23 04:58 Anion Gap 19.3 (5-19) H 02/02/23 04:58 BUN 16 mg/dL (8-23) 02/02/23 04:58 Creatinine 0.9 mg/dL (0.7-1.2) 02/02/23 04:58 GFR Calculation Not Reportable 02/02/23 04:58 Glucose 111 mg/dL (65-115) 02/02/23 04:58 POC Glucose 113 mg/dL (70-110) H 02/02/23 05:17 Calculated Osmolality 280 mOsm/kg (285-295) L 02/02/23 04:58 Lactic Acid 2.0 mmol/L (0.5-2.2) 02/02/23 04:58 Calcium 9.3 mg/dL (8.5-10.5) 02/02/23 04:58 Magnesium 2.0 mg/dL (1.7-2.3) 02/02/23 04:58 Total Bilirubin 0.4 mg/dL (0.15-1.2) 02/02/23 07:17 Direct Bilirubin 0.20 mg/dL (0.00-0.30) 02/02/23 07:17 AST 25 U/L (0-40) 02/02/23 07:17 ALT 16 U/L (0-41) 02/02/23 07:17 Alkaline Phosphatase 58 U/L (40-130) 02/02/23 07:17 Ammonia 14 umol/L (16-60) L 02/02/23 07:17 Creatine Kinase 315 U/L (39-308) H 02/02/23 07:17 Total Protein 6.6 g/dL (6.6-8.7) 02/02/23 07:17 Albumin 4.2 g/dL (3.5-5.2) 02/02/23 07:17 Globulin 2.4 g/dL (1.3-4.6) 02/02/23 07:17 TSH 1.42 uIU/mL (0.27-4.20) 02/02/23 04:58 Urine Color Yellow (Yellow) 02/02/23 04:56 Urine Appearance Cloudy (CLEAR) A 02/02/23 04:56 Urine pH 8 (5-7) H 02/02/23 04:56 Ur Specific [place] 1.020 (1.005-1.030) 02/02/23 04:56 Urine Protein Neg (Negative) 02/02/23 04:56 Urine Glucose (UA) Trace (Normal) H 02/02/23 04:56 Urine Ketones 2+ (Negative) H 02/02/23 04:56 Urine Blood Neg (Negative) 02/02/23 04:56 Urine Nitrate Negative (Negative) 02/02/23 04:56 Urine Bilirubin Neg (Negative) 02/02/23 04:56 Prot Sulfosalicylic Acd Negative (Negative) 02/02/23 04:56 Urine Urobilinogen Norm mg/dL (Negative) 02/02/23 04:56 Ur Leukocyte Esterase Negative (Negative) 02/02/23 04:56 Urine RBC 0-4 /hpf (0-2) H 02/02/23 04:56 Urine WBC Rare /hpf (0-5) 02/02/23 04:56 Ur Squamous Epith Cells None /hpf (0-5) 02/02/23 04:56 Amorphous Sediment 2+ /hpf 02/02/23 04:56 Urine Bacteria Trace /hpf (NONE) 02/02/23 04:56 Urine Mucus Trace /hpf 02/02/23 04:56 Salicylates 1.1 mg/dL (3-10) L 02/02/23 04:58 Acetaminophen < 5.0 ug/mL (10-30) L 02/02/23 04:58 Ethyl Alcohol < 10 mg/dL (0-10) 02/02/23 04:58 Discharge Plan Discharge Patient Disposition: Admitted As Inpatient Admit Provider: Win Chahal Clinical Impression: Alcohol withdrawal delirium, Alcohol abuse, Concussion without loss of consciousness, Liver cirrhosis Condition: Stable Sign Out Sign Out Data: Patient Sign Out occurred on 02/02/23 at 06:17. Patient's care was discussed, and care was transferred from to Andrea Beltran DO. Coding Level of Care Code ED Under Cutting Machine Operator for Chg Fwd Documented by User: Andrea Beltran DO 02/02/23 08:47 HPI - Altered Mental Status General: Chief Complaint: Fall Stated Complaint: fall Time Seen by Provider: 02/02/23 04:54 PFSH ED PFSH: Medical History Abrasion of face Acute confusion Alcohol abuse For the moment the patient's sober. He is competent, per my assessment today, to assume responsibility for his health care and wellbeing. Alcoholism Concussion without loss of consciousness Encephalopathy Gait disorder Hepatic encephalopathy Hypertension Insomnia disorder Laceration of scalp Large hiatal hernia Liver cirrhosis Pneumothorax Recurrent falls Surgical History H/O inguinal hernia repair Family History Denies family history of Clotting disorder Dementia Chronic kidney disease (CKD) Cancer Social History Smoking and tobacco status: never smoked Alcohol intake: current Substance/Drug Use: never Lives independently: Yes Household members: other Details: He lives alone Housing: House Marital status: Single Marital status details: Not in contact with his children, 2 sisters try to check up on him, sister Marely Barkley from [place] [phone] Course Vital Signs: Vital signs: Vital Signs Temperature 98.1 F 02/14/23 15:08 Pulse Rate 86 02/14/23 15:08 Respiratory Rate 16 02/14/23 15:08 Blood Pressure 114/69 02/14/23 15:08 Pulse Oximetry 95 02/14/23 15:08 Oxygen Delivery Me thod Room Air 02/14/23 15:08 MDM - Altered Mental Status Medical Decision Making 72-year-old gentleman presenting with found down altered mental status and respiratory symptoms. No focal neurologic deficits or active hemorrhage noted on exam. Handed off to Dr. Beltran pending completion of ED evaluation. Care assumed at change of shift. Patient is mildly tremulous and significantly confused. He is rambling on about various things when I questioned him on some of those he will try to self-correct. Other times he dozes off. Blood alcohol level is undetectable and believe he probably is withdrawing from alcohol he admits to regular use of hard liquor. Start him on a CIWA protocol has been given Ativan CT of the head was negative there is no meningeal signs at this point he does have a little bit of low-grade fever COVID swab is pending ammonia and PT and PTT were normal. We have added LFTs. Cultures have been done. Imaging reviewed unremarkable. I believe patient is withdrawing and is at risk for seizures. He has had multiple falls in the last 48 hours. Bleeding from the previous laceration but no new repair required Differential Diagnosis Likely alcoholic intoxication, altered mental status, delirium, dementia, hyponatremia, subarachnoid hemorrhage and sepsis Lab Data 02/09/23 04:50 02/09/23 04:50 Radiology Impressions Hand X-Ray 02/04/23 14:07 IMPRESSION: 1. No fracture or dislocation. 2. Advanced degenerative changes. Knee X-Ray 02/05/23 13:37 IMPRESSION: 1. Chondrocalcinosis. No fracture. 2. Joint effusion suprapatellar bursa. Chest X-Ray 02/06/23 15:59 IMPRESSION: No evidence for acute cardiopulmonary disease. Head CT 02/11/23 18:34 IMPRESSION: 1. No acute intracranial abnormality. 2. Moderate age-related changes. 3. Moderate persistent ventriculomegaly is chronic. No acute hydrocephalus. NPH is possible. Laboratory Results WBC 14.4 10^3/uL (4.0-10.0) H 02/02/23 05:49 Corrected WBC Cancelled 02/02/23 04:58 RBC 4.45 10^6/uL (4.1-5.3) 02/02/23 05:49 Hgb 11.0 g/dL (11.7-16.6) L 02/02/23 05:49 Hct 37.8 % (42.0-52.0) L 02/02/23 05:49 MCV 84.9 fl (80-94) 02/02/23 05:49 MCH 24.7 pg (28.0-34.0) L 02/02/23 05:49 MCHC 29.1 g/dL (30.0-36.0) L 02/02/23 05:49 RDW 18.8 % (12.1-15.1) H 02/02/23 05:49 Plt Count 294 10^3/cmm (130-400) 02/02/23 05:49 MPV 9.4 fL (7.4-10.4) 02/02/23 05:49 Gran % Cancelled 02/02/23 04:58 Neut % (Auto) 78.5 % 02/02/23 05:49 Lymph % (Auto) 9.2 % 02/02/23 05:49 [place] % (Auto) 11.3 % 02/02/23 05:49 Eos % (Auto) 0.1 % 02/02/23 05:49 Baso % (Auto) 0.4 % 02/02/23 05:49 Neut # (Auto) 11.34 10^3/uL (1.8-7.7) H 02/02/23 05:49 Lymph # (Auto) 1.3 10^3/uL (0.8-4.8) 02/02/23 05:49 [place] # (Auto) 1.6 10^3/uL (0.2-0.9) H 02/02/23 05:49 Eos # (Auto) 0.0 10^3/uL (0.0-0.8) 02/02/23 05:49 Baso # (Auto) 0.1 10^3/uL (0.0-0.1) 02/02/23 05:49 Absolute Gran (auto) Cancelled 02/02/23 04:58 Nucleated RBC % (auto) 0 % 02/02/23 05:49 Nucleated RBCs # 0.0 /100WBC 02/02/23 05:49 PT 15.30 SECONDS (12.1-14.9) H 02/02/23 07:17 INR 1.17 (0.8-1.2) 02/02/23 07:17 APTT 28.0 SECONDS (23.9-36.7) 02/02/23 07:17 Sodium 134 mmol/L (136-145) L 02/02/23 04:58 Potassium 4.3 mmol/L (3.5-5.1) 02/02/23 04:58 Chloride 97 mmol/L (98-107) L 02/02/23 04:58 Carbon Dioxide 22 mmol/L (22-29) 02/02/23 04:58 Anion Gap 19.3 (5-19) H 02/02/23 04:58 BUN 16 mg/dL (8-23) 02/02/23 04:58 Creatinine 0.9 mg/dL (0.7-1.2) 02/02/23 04:58 GFR Calculation Not Reportable 02/02/23 04:58 Glucose 111 mg/dL (65-115) 02/02/23 04:58 POC Glucose 113 mg/dL (70-110) H 02/02/23 05:17 Calculated Osmolality 280 mOsm/kg (285-295) L 02/02/23 04:58 Lactic Acid 2.0 mmol/L (0.5-2.2) 02/02/23 04:58 Calcium 9.3 mg/dL (8.5-10.5) 02/02/23 04:58 Magnesium 2.0 mg/dL (1.7-2.3) 02/02/23 04:58 Total Bilirubin 0.4 mg/dL (0.15-1.2) 02/02/23 07:17 Direct Bilirubin 0.20 mg/dL (0.00-0.30) 02/02/23 07:17 AST 25 U/L (0-40) 02/02/23 07:17 ALT 16 U/L (0-41) 02/02/23 07:17 Alkaline Phosphatase 58 U/L (40-130) 02/02/23 07:17 Ammonia 14 umol/L (16-60) L 02/02/23 07:17 Creatine Kinase 315 U/L (39-308) H 02/02/23 07:17 Total Protein 6.6 g/dL (6.6-8.7) 02/02/23 07:17 Albumin 4.2 g/dL (3.5-5.2) 02/02/23 07:17 Globulin 2.4 g/dL (1.3-4.6) 02/02/23 07:17 TSH 1.42 uIU/mL (0.27-4.20) 02/02/23 04:58 Urine Color Yellow (Yellow) 02/02/23 04:56 Urine Appearance Cloudy (CLEAR) A 02/02/23 04:56 Urine pH 8 (5-7) H 02/02/23 04:56 Ur Specific [place] 1.020 (1.005-1.030) 02/02/23 04:56 Urine Protein Neg (Negative) 02/02/23 04:56 Urine Glucose (UA) Trace (Normal) H 02/02/23 04:56 Urine Ketones 2+ (Negative) H 02/02/23 04:56 Urine Blood Neg (Negative) 02/02/23 04:56 Urine Nitrate Negative (Negative) 02/02/23 04:56 Urine Bilirubin Neg (Negative) 02/02/23 04:56 Prot Sulfosalicylic Acd Negative (Negative) 02/02/23 04:56 Urine Urobilinogen Norm mg/dL (Negative) 02/02/23 04:56 Ur Leukocyte Esterase Negative (Negative) 02/02/23 04:56 Urine RBC 0-4 /hpf (0-2) H 02/02/23 04:56 Urine WBC Rare /hpf (0-5) 02/02/23 04:56 Ur Squamous Epith Cells None /hpf (0-5) 02/02/23 04:56 Amorphous Sediment 2+ /hpf 02/02/23 04:56 Urine Bacteria Trace /hpf (NONE) 02/02/23 04:56 Urine Mucus Trace /hpf 02/02/23 04:56 Salicylates 1.1 mg/dL (3-10) L 02/02/23 04:58 Acetaminophen < 5.0 ug/mL (10-30) L 02/02/23 04:58 Ethyl Alcohol < 10 mg/dL (0-10) 02/02/23 04:58 Discharge Plan Discharge Patient Disposition: Admitted As Inpatient Admit Provider: Win Chahal Clinical Impression: Alcohol withdrawal delirium, Alcohol abuse, Concussion without loss of consciousness, Liver cirrhosis Condition: Stable Sign Out Sign Out Data: Patient Sign Out occurred on 02/02/23 at 06:17. Patient's care was discussed, and care was transferred from to Andrea Beltran DO. Coding Level of Care Code ED Under Cutting Machine Operator for jayashree Ugarte
--- NOTE | 2023-02-02 04:57 | CTR_ITS ---
PROCEDURE INFORMATION: Exam: CT Head Without Contrast Exam date and time: 02/02/2023 5:30 AM Age: 72 years old Clinical indication: Injury or trauma; Fall; Blunt trauma (contusions or hematomas); Consciousness not specified; Additional info: Fall, AMS TECHNIQUE: Imaging protocol: Computed tomography of the head without contrast. Radiation optimization: All CT scans at this facility use at least one of these dose optimization techniques: automated exposure control; mA and/or kV adjustment per patient size (includes targeted exams where dose is matched to clinical indication); or iterative reconstruction. REPORTING DATA: Count of CT and Cardiac NM exams in prior 12 months: This patient has received 12 known CTs and 0 known cardiac nuclear medicine studies in the 12 months prior to the current study. COMPARISON: CT head wo con* [id number] 01/31/2023 8:06 PM RADIATION DOSE METRICS: Total DLP (mGy-cm): 1273.78 FINDINGS: Brain: Unchanged mildly prominent brain sulci seen, related to the patient's age. Associated unchanged [id number] nonspecific periventricular white matter low attenuation areas. There are no intracranial masses, mass effect or midline shift. There is no cerebral edema. There is no subarachnoid hemorrhage. There are no intra-or extra-axial fluid collections, intraventricular or intraparenchymal hemorrhage. Cerebral ventricles: Unchanged moderately dilated ventricles are seen. This may be related to the generalized brain parenchymal atrophy or could be related to normal pressure hydrocephalus. Recommend correlation with clinical exam findings and neurological findings. CSF nuclear cisternogram may be performed for complete assessment, if there is clinical concern. The suprasellar and basilar cisterns appear unremarkable. Paranasal sinuses: Mild bilateral maxillary, mild bilateral ethmoid, minimal bilateral sphenoid and minimal left frontal sinus mucosal thickening is seen, consistent with sinus disease. Unchanged [id number] leftward deviation of the midline nasal septum. Mastoid air cells: The visualized mastoids are unremarkable. Orbital cavities: The visualized orbits are unremarkable. Bones/joints: No definite acute osseous or skull abnormalities seen. Soft tissues: Mild bilateral frontal and mild right zygomatic region soft tissue swelling. Notes: If there is further clinical concern for intracranial pathology, MRI of the brain may be performed for further assessment. CT/CT head wo con* [id number] IMPRESSION: 1. No noncontrast CT evidence of acute posttraumatic intracranial abnormality. Mild bilateral frontal and mild right zygomatic region soft tissue swelling. 2. Atrophic changes, as noted above. Unchanged moderately dilated ventricles, as noted above.
--- NOTE | 2023-02-02 04:57 | XRR_ITS ---
PROCEDURE INFORMATION: Exam: XR Chest Exam date and time: 02/02/2023 5:08 AM Age: 72 years old Clinical indication: Injury or trauma; Fall; Shortness of breath; Blunt trauma (contusions or hematomas); Injury details: Right rib pain; Additional info: SOB TECHNIQUE: Imaging protocol: Radiologic exam of the chest. Views: 1 view. COMPARISON: CR (CHEST, ) 09/26/2022 7:40 PM FINDINGS: Lungs: Normal lung volumes. No interstitial or air space opacities seen. Pleural spaces: No pleural effusion. No pneumothorax. Heart/Mediastinum: Normal heart size. There is a mildly tortuous thoracic aorta. Midline trachea. Bones/joints: No acute osseous abnormalities seen. Old healed right posterior 7th rib fracture is seen. Some old healed left upper rib fractures are also seen. Unchanged mildly elevated right hemidiaphragm, consistent with hemidiaphragmatic eventration. Rib series may be performed, if there is further clinical concern for rib fractures. XR/XR chest 1V portable [id number] IMPRESSION: 1. No confluent infiltrates in the lungs. 2. Old bilateral rib fractures, as noted above.
--- NOTE | 2023-02-02 04:59 | ECG_ITS ---
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 Measurements Intervals [place] Rate: 108 P: 52 NV: 168 QRS: -38 QRSD: 122 T: 18 QT: 311 QTc: 418 Interpretive Statements SINUS TACHYCARDIA LEFT AXIS DEVIATION [QRS AXIS < -30] RIGHT BUNDLE BRANCH BLOCK [120+ ms QRS DURATION, UPRIGHT V1, 40+ ms S IN I/aVL/V4/V5/V6] INTERPRETATION BASED ON A DEFAULT AGE OF 40 YEARS Compared to ECG 10/13/2022 11:32:07 Left-axis deviation now present Sinus rhythm no longer present Electronically Signed On 02-04-2023 9:54:09 CDT by Will Lobato M.D. [id number]
[2023-02-02] MEDS: ipratropium-albuterol 3 mL Neb INHALATION (05:15)
[2023-02-02 05:20] LABS: Glucose Point of Care 113 mg/dL (70-110)
[2023-02-02 05:34] LABS: Blood Urea Nitrogen 16 mg/dL (8-23); Calcium 9.3 mg/dL (8.5-10.5); Carbon Dioxide 22 mmol/L (22-29); Chloride 97 mmol/L (98-107); Creatinine Clr Calc Pharmacy 78.7864; Glucose 111 mg/dL (65-115); Osmolality Calculated 280 mOsm/kg (285-295); Salicylate 1.1 mg/dL (3-10); Sodium 134 mmol/L (136-145); Thyroid Stimulating Hormone 1.42 uIU/mL (0.27-4.20)
[2023-02-02 05:36] LABS: Acetaminophen < 5.0 ug/mL (10-30); Alcohol Level < 10 mg/dL (0-10); Anion Gap 19.3 (5-19); Potassium 4.3 mmol/L (3.5-5.1)
[2023-02-02 05:53] LABS: Basophils # 0.1 10^3/uL (0.0-0.1); Basophils % 0.4 %; Eosinophils % 0.1 %; Hematocrit 37.8 % (42.0-52.0); Lymphocytes # 1.3 10^3/uL (0.8-4.8); Lymphocytes % 9.2 %; Mean Corpuscular HGB Conc 29.1 g/dL (30.0-36.0); Mean Corpuscular Hemoglobin 24.7 pg (28.0-34.0); Mean Corpuscular Volume 84.9 fl (80-94); Mean Platelet Volume 9.4 fL (7.4-10.4); Monocytes # 1.6 10^3/uL (0.2-0.9); Monocytes % 11.3 %; Neutrophils # 11.34 10^3/uL (1.8-7.7); Neutrophils % 78.5 %; Nucleated Red Blood Cells % 0 %; Platelet Count 294 10^3/cmm (130-400); Red Blood Count 4.45 10^6/uL (4.1-5.3); Red Cell Distribution Width 18.8 % (12.1-15.1); White Blood Count 14.4 10^3/uL (4.0-10.0)
[2023-02-02] MEDS: LORazepam 2 mg/mL INJ 1 mL IVP (06:33)
[2023-02-02 06:35] LABS: Urine Appearance Cloudy (CLEAR); Urine Color Yellow (Yellow); pH Urine 8 (5-7)
[2023-02-02 06:36] LABS: Add Urine Microscopic? YES; Bilirubin Urine Neg (Negative); Blood Urine Neg (Negative); Glucose Urine UA Trace (Normal); Ketones Urine 2+ (Negative); Leukocyte Esterase Urine Negative (Negative); Nitrate Urine Negative (Negative); Protein Urine Neg (Negative); Urobilinogen Urine Norm (Negative)
[2023-02-02 06:43] LABS: Sulfosalicylic Acid Urine Negative (Negative)
[2023-02-02 06:53] LABS: Amorphous Sediment Urine 2+ /hpf; Bacteria Urine TRACE /hpf; Mucus Urine TRACE /hpf; RBC Urine 0-4 /hpf (0-2); WBC Urine RARE /hpf (0-5)
[2023-02-02 06:54] LABS: Add Urine Culture? No
[2023-02-02 07:34] LABS: INR 1.17 (0.8-1.2)
[2023-02-02 07:40] LABS: Ammonia 14 umol/L (16-60)
[2023-02-02 08:04] LABS: Alanine Aminotransferase 16 U/L (0-41); Albumin Level 4.2 g/dL (3.5-5.2); Alkaline Phosphatase 58 U/L (40-130); Aspartate Amino Transferase 25 U/L (0-40); Globulin 2.4 g/dL (1.3-4.6); Total Bilirubin 0.4 mg/dL (0.15-1.2); Total Protein 6.6 g/dL (6.6-8.7)
[2023-02-02 09:01] LABS: Creatine Phosphokinase 315 U/L (39-308)
--- NOTE | 2023-02-02 09:09 | P.HP_ITS ---
Providers/Chief Complaint Admitting Physician: Win Chahal MD Primary Care Provider: David Menon MD Chief Complaint: fall History of Present Illness Canelo Lara is a 72 year old male presenting to the emergency department after being found down, in the yard and confused. Patient cannot really give me any other history. He has been seen for another fall, in the emergency department on September 02. He is able to answer few questions, but then goes off base fairly quickly. He admits to continued drinking. He has a past history of alcoholism, frequent falls, gait instability, Warnicke Korsakoff syndrome. Again, further history is unobtainable from the patient. In the emergency department he received some Ativan, and a CIWA protocol was ordered. Secondary to slightly elevated temperature blood culture was drawn. Review of Systems General: Reports: ROS unobtainable due to medical condition Medications/Allergies Home Medications Medication Instructions Recorded Confirmed Last Taken Type multivitamin 1 tab PO DAILY 11/14/20 02/02/23 06/09/22 History ibuprofen 200 mg tablet 400 - 600 mg PO Q6H PRN Pain 09/26/21 02/02/23 Unknown History folic acid 1 mg tablet 1 mg PO DAILY #60 tabs 06/01/22 02/02/23 06/09/22 Rx losartan 25 mg tablet 50 mg PO DAILY #60 tabs 06/01/22 02/02/23 06/09/22 Rx thiamine HCl (vitamin B1) 100 mg 100 mg PO DAILY #90 tabs 06/01/22 02/02/23 06/09/22 Rx tablet tramadol 50 mg tablet 50 mg PO Q12H PRN pain #20 tabs 12/20/22 02/02/23 Unknown Rx dimenhydrinate 50 mg tablet 50 mg PO Q6H PRN dizziness or 01/19/23 02/02/23 Unknown Rx vertigo #30 tabs mupirocin 2 % topical ointment 1 applic topical BID #15 grams 01/19/23 02/02/23 Unknown Rx ferrous sulfate 325 mg (65 mg 325 mg PO DAILY 02/02/23 02/02/23 Unknown History iron) tablet (FeroSul) gabapentin 100 mg capsule 100 mg PO Q8H PRN Pain 02/02/23 02/02/23 Unknown History Allergies Allergy/AdvReac Type Severity Reaction Status Date / Time No Known Allergies Allergy Verified 02/02/23 05:00 PFSH Acute PFSH: Medical History Abrasion of face Acute confusion Alcohol abuse For the moment the patient's sober. He is competent, per my assessment today, to assume responsibility for his health care and wellbeing. Alcoholism Concussion without loss of consciousness Encephalopathy Gait disorder Hepatic encephalopathy Hypertension Insomnia disorder Laceration of scalp Large hiatal hernia Liver cirrhosis Pneumothorax Recurrent falls Surgical History (Reviewed 02/02/23 @ 09: by Win Chahal MD) H/O inguinal hernia repair Family History (Reviewed 02/02/23 @ 09: by Win Chahal MD) Denies family history of Clotting disorder Dementia Chronic kidney disease (CKD) Cancer Social History (Reviewed 02/02/23 @ 09: by Win Chahal MD) Smoking and tobacco status: never smoked Alcohol intake: current Substance/Drug Use: never Lives independently: Yes Household members: other Details: He lives alone Housing: House Marital status: Single Marital status details: Not in contact with his children, 2 sisters try to check up on him, sister Marely Barkley from [place] [phone] Vitals/I&O/Wt Last Vital Signs Temp 100.0 F H 02/02/23 04:50 Pulse 106 H 02/02/23 06:33 Resp 18 02/02/23 06:33 BP 136/99 02/02/23 06:33 Pulse Ox 98 02/02/23 06:33 O2 Del Method Room Air 02/02/23 06:33 Weight last 48 hrs Weight 81.647 kg Physical Exam Narrative: General exam is a confused white male, who will sometimes answer a few questions, who currently denies pain. Tremulousness noted. Vital signs reveal a heart rate of 110, and hypertension HEENT: Head demonstrates a laceration, previously sutured at last ER visit on the 25th, left forehead. Oropharynx clear. Neck is supple no lymphadenopathy or thyromegaly. Negative Kernig's and Brudzinski's. Cardiovascular slight tachycardia, no obvious murmur Lungs clear no wheezing or crackles Abdomen is soft with positive bowel sounds. No obvious organomegaly exam is deferred Extremities no cyanosis clubbing or edema, multiple abrasions are noted mainly over his hands, especially the left hand MCP joints dorsally. Skin see findings above Neuro no obvious focal deficits. Data 02/02/23 05:49 02/02/23 04:58 Other Labs: Chest x-ray which I reviewed demonstrates no obvious infiltrate EKG demonstrates a significant amount of artifact, tachycardia with heart rate around 110, right bundle branch block, left axis deviation by my read Anion gap is approximately 19 INR is 1.17 LFTs are normal, calcium 9.3. I have ordered a CK which is slightly elevated 315 Ammonia level 14 TSH 1.42 Urinalysis 2+ ketones, 0-4 red blood cells Salicylate level 1.1, acetaminophen level less than 5, alcohol level less than [address] head no bleed. Ventriculomegaly noted as previous. Micro: Microbiology 02/02/23 06:44 Blood Culture - Preliminary Blood SPECIMEN COLLECTED 02/02/23 06:30 Blood Culture - Preliminary Blood SPECIMEN COLLECTED A&P Assessment and plan (1) Alcohol withdrawal delirium: Patient presents with acute alcohol withdrawal, and acute encephalopathy. Placed in the ICU. He has had frequent falls with injury. On the floor he sta nds a chance of significant falling. Will initiate CIWA protocol, but very concerned he may need Precedex or phenobarbital at some point Hydration Ativan as needed Thiamine, folate CMP, magnesium level tomorrow Check magnesium level today as well. Associated with anion gap metabolic acidosis (2) Acute metabolic encephalopathy: This is likely secondary to his alcohol withdrawal His temperature of 100.0 is also likely to alcohol withdrawal. We will continue to observe for any signs of infection. Blood cultures were drawn. Will not initiate antibiotics at this time. No further imaging at this time. (3) Rhabdomyolysis: Hydration Repeat CK level tomorrow (4) Fall: Patient has had multiple falls. From my understanding he is taking antihistamine for chronic dizziness [id number]. This could increase fall risk. We will hold. He has been noncompliant with follow-up with ENT and neurology regarding his chronic dizziness which has been going on for years. (5) Anemia: Mild anemia is noted. Likely secondary to alcohol. Continue to monitor. CBC daily. Plan Multiple other medical problems as outlined in past medical history Full code Lovenox for DVT prophylaxis Attestations 2 Medical Necessity Statement*: Will require greater than 2 midnight stay for evaluation and treatment of acute alcohol withdrawal with acute encephalopathy Critical Care Time: The high probability of a clinically significant, sudden or life threatening deterioration of the patient's [neurologic, metabolic] system(s) required my full and direct attention, intervention and personal management. The critical care time is as shown. This time is in addition to time spent performing any reported procedures but includes the following: [x] Data and vital sign review and interpretation [x] Patient assessment, examination and intervention [x] Documentation [x] Medication orders and management Critical Care Time (min): 50 Coding Level of Care Code Critical Care >/= 30 minutes Critical care time (in minutes): 50 The high probability of a clinically significant, sudden or life threatening deterioration, as referenced in this documentation, required my full and direct attention, intervention and personal management. The critical care time shown is in addition to time spent performing any reported separately billable procedures and includes the following: [x] Data and vital sign review and interpretation [x ] Patient assessment, examination and intervention [x] Medication orders and management [x] Patient/Family updates as able [x] Care Coordination and Documentation. Diagnoses Alcohol withdrawal delirium F10.931 Acute metabolic encephalopathy G93.41 Rhabdomyolysis M62.82 Fall W19.XXXA Anemia D64.9
--- NOTE | 2023-02-02 10:48 | PC.NURSE ---
1030 received patient via gurney from ER, patient woke up when transfering to bed, angery, acting like he was going to hit the nurse but did not. Would not answer questions most of the time. Occasionally would answer appropriately. Confused, thought he was somewhere other than the hospital and argued when I told him he is in the hospital. Only helpful statement was that he takes Lisinopril medication at home. ONly has one IV in right forarm. ER nurse stated he had another one,but pulled it out in ER. Denies any pain at this time.
[2023-02-02] MEDS: sodium chloride 0.9% 1,000 ML 100 ML IV (12:13)
[2023-02-02] MEDS: enoxaparin 40 mg/0.4 mL Syringe SUBCUT (12:23)
[2023-02-02] MEDS: folic acid 1 mg Tablet PO (12:51)
[2023-02-02] MEDS: multivitamin therapeutic Tablet 1 TAB PO (12:52)
[2023-02-02 19:20] LABS: Adenovirus Not Detected (NOT DETECT); Chlamydia Pneumoniae Not Detected (NOT DETECT); Coronavirus 229E,HKU1,NL63,OC4 Not Detected (NOT DETECT); Human Metapneumovirus Not Detected (NOT DETECT); Human Rhinovirus/Enterovirus Not Detected (NOT DETECT); Influenza A Not Detected (NOT DETECT); Influenza A H1 Not Detected (NOT DETECT); Influenza A H1-2009 Not Detected (NOT DETECT); Influenza A H3 Not Detected (NOT DETECT); Influenza B Not Detected (NOT DETECT); Mycoplasma Pneumoniae Not Detected (NOT DETECT); Parainfluenza Virus Type 1 Not Detected (NOT DETECT); Parainfluenza Virus Type 2 Not Detected (NOT DETECT); Parainfluenza Virus Type 3 Not Detected (NOT DETECT); Parainfluenza Virus Type 4 Not Detected (NOT DETECT); Respiratory Syncytial Virus A Not Detected (NOT DETECT); Respiratory Syncytial Virus B Not Detected (NOT DETECT); SARS-COV-2 Not Detected (NOT DETECT)
[2023-02-02] MEDS: sodium chloride 0.9% 1,000 ML 125 ML IV (20:34)
[2023-02-03] VITALS (47 sets, daily range): BP systolic 99–207; BP diastolic 70–121; PULSE 81–93; RESP 13–24; TEMP 36.7–37.1; O2SAT 88–99; BMI 26.6
--- NOTE | 2023-02-03 01:52 | PC.NURSE ---
Spoke to Dr Andrews regarding pts elevated blood pressure. New orders given.
[2023-02-03] MEDS: labetalol 5 mg/mL SDV 20mL IVP (02:05)
[2023-02-03 03:20] LABS: Basophils # 0.1 10^3/uL (0.0-0.1); Basophils % 0.7 %; Eosinophils # 0.1 10^3/uL (0.0-0.8); Eosinophils % 1.2 %; Hematocrit 38.6 % (42.0-52.0); Lymphocytes # 1.5 10^3/uL (0.8-4.8); Lymphocytes % 16.7 %; Mean Corpuscular HGB Conc 28.5 g/dL (30.0-36.0); Mean Corpuscular Hemoglobin 24.1 pg (28.0-34.0); Mean Corpuscular Volume 84.6 fl (80-94); Mean Platelet Volume 9.6 fL (7.4-10.4); Monocytes % 10.9 %; Neutrophils # 6.46 10^3/uL (1.8-7.7); Neutrophils % 70.2 %; Nucleated Red Blood Cells % 0 %; Platelet Count 274 10^3/cmm (130-400); Red Blood Count 4.56 10^6/uL (4.1-5.3); White Blood Count 9.2 10^3/uL (4.0-10.0)
[2023-02-03 03:43] LABS: Albumin Level 3.3 g/dL (3.5-5.2); Alkaline Phosphatase 57 U/L (40-130); Blood Urea Nitrogen 11 mg/dL (8-23); Calcium 8.5 mg/dL (8.5-10.5); Carbon Dioxide 19 mmol/L (22-29); Chloride 100 mmol/L (98-107); Creatine Phosphokinase 246 U/L (39-308); Creatinine Clr Calc Pharmacy 88.6347; Globulin 3.2 g/dL (1.3-4.6); Glucose 75 mg/dL (65-115); Magnesium 2.1 mg/dL (1.7-2.3); Osmolality Calculated 272 mOsm/kg (285-295); Sodium 132 mmol/L (136-145); Total Bilirubin 0.4 mg/dL (0.15-1.2); Total Protein 6.5 g/dL (6.6-8.7)
[2023-02-03 03:46] LABS: Anion Gap 17.4 (5-19); Potassium 4.4 mmol/L (3.5-5.1)
[2023-02-03 03:47] LABS: Alanine Aminotransferase 15 U/L (0-41); Aspartate Amino Transferase 30 U/L (0-40)
[2023-02-03] MEDS: sodium chloride 0.9% 1,000 ML 125 ML IV (04:39)
[2023-02-03] MEDS: acetaminophen 325 mg Tablet 650 MG PO (04:41)
--- NOTE | 2023-02-03 08:16 | PM.PN ---
Subjective Subjective: Canelo reports that he feels better. He is hungry. He is concerned as he was confused yesterday and feels a little bit confused today. Reports a little bit of a headache but otherwise doing okay. No chest pain, or cough. Received labetalol for elevated blood pressure in the night. Metoprolol was ordered. Medications: Reviewed: Yes Vitals/I&O/Wt Last Vital Signs Temp 98.7 F 02/02/23 16:00 Pulse 87 02/03/23 06:00 Resp 16 02/02/23 16:00 BP 144/79 02/03/23 06:00 Pulse Ox 98 02/03/23 06:00 O2 Del Method Room Air 02/02/23 20:00 02/02/23 02/03/23 02/03/23 22:59 06:59 14:59 Intake Total 453.333 / 764.821 5776 / 1693.333 Output Total 400 / 400 400 / 800 Balance 53.333 / 53.333 840 / 893.333 Weight last 48 hrs Weight 81.647 kg Weight 81.647 kg Physical Exam Narrative: General exam is a c white male alert and conversive forehead. Oropharynx clear. Neck is supple no lymphadenopathy or thyromegaly. Cardiovascular slight tachycardia, no obvious murmur Lungs clear no wheezing or crackles Abdomen is soft with positive bowel sounds. No obvious organomegaly exam is deferred Extremities no cyanosis clubbing or edema, multiple abrasions are noted mainly over his hands, especially the left hand MCP joints dorsally. Skin see findings above Neuro no obvious focal deficits. Data 02/03/23 02:40 02/03/23 02:40 Micro: Microbiology 02/02/23 06:44 Blood Culture - Preliminary Blood NEGATIVE TO DATE 02/02/23 06:30 Blood Culture - Preliminary Blood NEGATIVE TO DATE A&P Assessment and plan (1) Alcohol withdrawal delirium: Patient presents with acute alcohol withdrawal, and acute encephalopathy. Placed in the ICU. He has had frequent falls with injury. On the floor he stands a chance of significant falling. Continue CIWA protocol Reduce IV fluids Overall improved Continue thiamine and folate Laboratory reviewed today, sodium slightly low. Recheck BMP tomorrow Anion gap metabolic acidosis has resolved. (2) Acute metabolic encephalopathy: This is likely secondary to his alcohol withdrawal. It is improved today His temperature of 100.0 is also likely to alcohol withdrawal. We will continue to observe for any signs of infection. Blood cultures were drawn. No recurrence of elevated temperature Continue to monitor CBC tomorrow (3) Rhabdomyolysis: CK level now normal Reduce hydration, focus on p.o. intake (4) Fall: Patient has had multiple falls. From my understanding he is taking antihistamine for chronic dizziness [id number]. This could increase fall risk. Continue to hold. He has been noncompliant with follow-up with ENT and neurology regarding his chronic dizziness which has been going on for years. Physical therapy consultation for ambulation safety, strength, need for any medical equipment at discharge (5) Anemia: Mild anemia is noted. Likely secondary to alcohol. Continue to monitor. CBC daily. Stable today Plan Elevated blood pressure. Reduced dose of metoprolol that was ordered for this morning after review of blood pressure. Multiple other medical problems as outlined in past medical history Full code Lovenox for DVT prophylaxis May transfer to the second floor, fall precautions Attestations Medical Necessity Statement*: Needs continued hospitalization for close monitoring secondary to alcohol withdrawal, now starting to resolve Diagnoses Alcohol withdrawal delirium F10.931 Acute metabolic encephalopathy G93.41 Rhabdomyolysis M62.82 Fall W19.XXXA Anemia D64.9 Time Spent (min) 25
[2023-02-03] MEDS: losartan 50 mg Tablet PO (08:19)
[2023-02-03] MEDS: multivitamin therapeutic Tablet 1 TAB PO (08:19)
[2023-02-03] MEDS: pantoprazole 40 mg SDV IVP (08:19)
[2023-02-03] MEDS: metoprolol tartrate 25 mg Tablet PO ×2 (08:19→21:46)
[2023-02-03] MEDS: folic acid 1 mg Tablet PO (08:19)
[2023-02-03] MEDS: TRAMadol 50 mg Tablet PO ×2 (10:35→22:56)
[2023-02-03] MEDS: thiamine 100 mg Tablet PO (10:35)
[2023-02-03] MEDS: enoxaparin 40 mg/0.4 mL Syringe SUBCUT (10:36)
[2023-02-03 11:21] LABS: Glucose Point of Care 79 mg/dL (70-110)
[2023-02-03] MEDS: LORazepam 2 mg/mL INJ 1 mL IVP (12:42)
[2023-02-03] MEDS: sodium chloride 0.9% 1,000 ML 50 ML IV (12:46)
[2023-02-03 15:31] LABS: Anion Gap 17.2 (5-19); Blood Urea Nitrogen 10 mg/dL (8-23); Calcium 8.3 mg/dL (8.5-10.5); Carbon Dioxide 18 mmol/L (22-29); Chloride 98 mmol/L (98-107); Creatinine Clr Calc Pharmacy 88.6347; Glucose 85 mg/dL (65-115); Osmolality Calculated 266 mOsm/kg (285-295); Potassium 4.2 mmol/L (3.5-5.1); Sodium 129 mmol/L (136-145)
--- NOTE | 2023-02-03 16:10 | PC.NURSE ---
Dr. Chahal notified of patient increasing confusion and hallucinations, CIWA score of 10 and Ativan given. Patient continues to be disoriented and talking to hallucinations in room. Dr. Chahal ordered CMP. Results were volted to . Orders received to stop IV fluids and give 40mg IV Lasix once.
[2023-02-03] MEDS: FUROsemide 10 mg/mL SDV 2mL 40 MG IVP (16:23)
--- NOTE | 2023-02-03 16:29 | PC.NURSE ---
Patient increasingly agitated. Attempts to get out of bed stating, I need to find my shoes so I can walk home! This horse should have been nice to me, I have to find my car! Patient is slightly able to be redirected verbally.
[2023-02-03] MEDS: dexmedetomidine 400 MCG in sodium chloride 0.9% (100 ml) 100 ML IV (17:00)
--- NOTE | 2023-02-03 18:48 | W.PM.EVENTAC ---
Event Note Event Note: Patient was agitated He was trying to rip off his IV lines As per the nursing staff patient became more agitated when received Ativan around afternoon Notes reviewed Patient is tachycardic Agitated Plan Hold Ativan, Ativan related delirium? 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
[2023-02-03] MEDS: PHENobarbital 130 mg/mL SDV 1 mL 60 MG IV (19:44)
[2023-02-04] VITALS (19 sets, daily range): BP systolic 105–179; BP diastolic 69–112; PULSE 75–96; RESP 13–18; TEMP 36.6–37.2; O2SAT 91–97
[2023-02-04] MEDS: PHENobarbital 130 mg/mL SDV 1 mL 60 MG IV
[2023-02-04 03:48] LABS: Basophils # 0.1 10^3/uL (0.0-0.1); Basophils % 0.8 %; Eosinophils # 0.2 10^3/uL (0.0-0.8); Eosinophils % 2.7 %; Hematocrit 33.3 % (42.0-52.0); Lymphocytes # 1.2 10^3/uL (0.8-4.8); Lymphocytes % 15.6 %; Mean Corpuscular Hemoglobin 24.4 pg (28.0-34.0); Mean Corpuscular Volume 81.2 fl (80-94); Mean Platelet Volume 9.1 fL (7.4-10.4); Monocytes % 13.4 %; Neutrophils # 5.03 10^3/uL (1.8-7.7); Neutrophils % 67.2 %; Nucleated Red Blood Cells % 0 %; Platelet Count 313 10^3/cmm (130-400); Red Cell Distribution Width 18.2 % (12.1-15.1); White Blood Count 7.5 10^3/uL (4.0-10.0)
[2023-02-04 04:11] LABS: Anion Gap 17.4 (5-19); Blood Urea Nitrogen 14 mg/dL (8-23); Calcium 8.6 mg/dL (8.5-10.5); Carbon Dioxide 24 mmol/L (22-29); Chloride 98 mmol/L (98-107); Creatinine Clr Calc Pharmacy 78.7864; Glucose 85 mg/dL (65-115); Magnesium 1.9 mg/dL (1.7-2.3); Osmolality Calculated 280 mOsm/kg (285-295); Potassium 4.4 mmol/L (3.5-5.1); Sodium 135 mmol/L (136-145)
[2023-02-04] MEDS: folic acid 1 mg Tablet PO (09:14)
[2023-02-04] MEDS: losartan 50 mg Tablet PO (09:14)
[2023-02-04] MEDS: multivitamin therapeutic Tablet 1 TAB PO (09:14)
[2023-02-04] MEDS: metoprolol tartrate 25 mg Tablet PO ×2 (09:16→20:20)
[2023-02-04] MEDS: thiamine 100 mg Tablet PO (09:16)
[2023-02-04] MEDS: pantoprazole 40 mg SDV IVP (09:16)
[2023-02-04] MEDS: enoxaparin 40 mg/0.4 mL Syringe SUBCUT (11:18)
[2023-02-04] MEDS: TRAMadol 50 mg Tablet PO (12:23)
--- NOTE | 2023-02-04 13:11 | PC.NURSE ---
Report called to [facility], second floor.
--- NOTE | 2023-02-04 13:22 | PC.NURSE ---
Sister called and left phone numbers: Marely Lara: Home phone,[phone] Cell phone,
--- NOTE | 2023-02-04 13:56 | PC.NURSE ---
Patient transferred to second floor room 279-2. Patient resting in bed with nurse and PSA at bedside. Physical therapy to work with patient, also at bedside. Patient belongings in 2 bags left in room, Wallet in pants pocket with unknown contents. Nurse Parris,notified of this.
--- NOTE | 2023-02-04 14:02 | P.PN_ITS ---
Subjective Subjective: Canelo was seen several times throughout the day. Yesterday, there was concern of increased confusion as we had some phenobarbitone Precedex drip started. These were stopped early in the morning as it was suspected withdrawal symptoms had dissipated. A previous hospital stay he did have some prolonged issues with confusion. Last dose of phenobarbital was midnight. He is alert to date, and has to be redirected on place he is currently at. He wonders what happened to him to get him here. Medications: Reviewed: Yes Vitals/I&O/Wt Last Vital Signs Temp 97.8 F 02/04/23 08:00 Pulse 83 02/04/23 12:00 Resp 18 02/04/23 12:00 BP 137/97 02/04/23 12:00 Pulse Ox 97 02/04/23 12:00 O2 Del Method Room Air 02/04/23 12:00 02/03/23 02/04/23 02/04/23 22:59 06:59 14:59 Intake Total 299.791 / 1539.791 12.538 / 1552.329 256.374 / 256.374 Output Total 850 / 1250 0 / 1250 150 / 150 Balance -550.209 / 289.791 12.538 / 302.329 106.374 / 106.374 Weight last 48 hrs Weight 88.995 kg Weight 81.647 kg Physical Exam Narrative: General exam no distress Cardiovascular slight tachycardia, no obvious murmur Lungs clear no wheezing or crackles Abdomen is soft with positive bowel sounds. No obvious organomegaly exam is deferred Extremities no cyanosis clubbing or edema, multiple abrasions are noted mainly over his hands, especially the left hand MCP joints dorsally. Data 02/04/23 03:30 02/04/23 03:30 A&P Assessment and plan (1) Alcohol withdrawal delirium: Patient presents with acute alcohol withdrawal, and acute encephalopathy. Placed in the ICU. He has had frequent falls with injury. On the floor he stands a chance of significant falling. Currently improved Moved to the floor Continue thiamine and folate Discharge planning to evaluate. Physical therapy to evaluate. If confusion resolves, consider discharge in the next 1 to 2 days. (2) Acute metabolic encephalopathy: Improved No evidence of infection (3) Rhabdomyolysis: CK level now normal Resolved (4) Fall: Patient has had multiple falls. From my understanding he is taking antihistamine for chronic dizziness [id number]. This could increase fall risk. Continue to hold. He has been noncompliant with follow-up with ENT and neurology regarding his chronic dizziness which has been going on for years. Physical therapy consultation for ambulation safety, strength, need for any med ical equipment at discharge (5) Anemia: Mild anemia is noted. Likely secondary to alcohol. Stable Plan Hyponatremia, improved after discontinuation of fluids. Recheck BMP tomorrow Left hand contusion. Check x-ray Elevated blood pressure. Metoprolol, losartan Multiple other medical problems as outlined in past medical history Full code Lovenox for DVT prophylaxis May transfer to the second floor, fall precautions Attestations Medical Necessity Statement*: Needs continued hospitalization for continued care as alcohol withdrawal has significantly improved. Mild confusion persisted. Diagnoses Alcohol withdrawal delirium F10.931 Acute metabolic encephalopathy G93.41 Rhabdomyolysis M62.82 Fall W19.XXXA Anemia D64.9 Time Spent (min) 24
--- NOTE | 2023-02-04 14:07 | XR_ITS ---
WS: [id number] Exam: XR hand LT 2V [id number] Date/Time of Exam: 02/04/2023 2:09 PM Reason For Exam: contusion Comparison 11/19/2020. No acute fracture or dislocation. Advanced degenerative changes of the IP and MP joints. Old fracture deformity of the fifth metacarpal. Advanced degenerative changes in the radiocarpal joint and interc arpal articulations. 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 XR/XR hand LT 2V [id number] IMPRESSION: 1. No fracture or dislocation. 2. Advanced degenerative changes.
[2023-02-05] VITALS (10 sets, daily range): BP systolic 130–176; BP diastolic 78–106; PULSE 76–105; RESP 16–18; TEMP 36.7–38.7; O2SAT 96–97
[2023-02-05 05:30] LABS: Basophils % 0.5 %; Eosinophils # 0.1 10^3/uL (0.0-0.8); Eosinophils % 1.3 %; Hematocrit 38.1 % (42.0-52.0); Hemoglobin 11.3 g/dL (11.7-16.6); Lymphocytes # 1.3 10^3/uL (0.8-4.8); Lymphocytes % 15.2 %; Mean Corpuscular HGB Conc 29.7 g/dL (30.0-36.0); Mean Corpuscular Hemoglobin 24.9 pg (28.0-34.0); Mean Corpuscular Volume 83.9 fl (80-94); Monocytes % 12.4 %; Neutrophils # 5.82 10^3/uL (1.8-7.7); Neutrophils % 70.2 %; Nucleated Red Blood Cells % 0 %; Platelet Count 392 10^3/cmm (130-400); Red Blood Count 4.54 10^6/uL (4.1-5.3); Red Cell Distribution Width 18.6 % (12.1-15.1); White Blood Count 8.3 10^3/uL (4.0-10.0)
[2023-02-05 05:46] LABS: Anion Gap 20.8 (5-19); Blood Urea Nitrogen 16 mg/dL (8-23); Calcium 8.7 mg/dL (8.5-10.5); Carbon Dioxide 17 mmol/L (22-29); Chloride 99 mmol/L (98-107); Glucose 81 mg/dL (65-115); Osmolality Calculated 276 mOsm/kg (285-295); Potassium 3.8 mmol/L (3.5-5.1); Sodium 133 mmol/L (136-145)
--- NOTE | 2023-02-05 07:53 | PM.PN ---
Subjective Subjective: Canelo is doing okay this morning. He believes his chest pain is a little less. He is oriented to year, date of , self. He is 1 off on the month. Again he is worried about being confused, and not knowing what went on at home to bring him in. He certainly seems more conversant, and cognizant than yesterday. I asked him who would be a decision maker for him, and he indicated his brother would be but was not for sure of the telephone number. He did not want his sister making decisions. Medications: Reviewed: Yes Vitals/I&O/Wt Last Vital Signs Temp 98.9 F 02/05/23 05:24 Pulse 93 02/05/23 07:09 Resp 18 02/05/23 03:35 BP 134/78 02/05/23 03:35 Pulse Ox 97 02/05/23 07:09 O2 Del Method Room Air 02/05/23 07:09 02/04/23 02/05/23 02/05/23 22:59 06:59 14:59 Intake Total 565.297 / 821.671 Output Total 300 / 450 Balance 265.297 / 371.671 Weight last 48 hrs Weight 86.409 kg Weight 88.995 kg Physical Exam Narrative: General exam no distress, overall improved today Cardiovascular no rate and rhythm without murmur Lungs clear no wheezing or crackles Abdomen is soft with positive bowel sounds. No obvious organomegaly exam is deferred Extremities no cyanosis clubbing or edema, multiple abrasions are noted mainly over his hands, especially the left hand MCP joints dorsally. Data 02/05/23 05:15 02/05/23 05:15 Other Labs: X-ray of hand reviewed. No fracture A&P Assessment and plan (1) Alcohol withdrawal delirium: Patient presents with acute alcohol withdrawal, and acute encephalopathy. Placed in the ICU. He has had frequent falls with injury. On the floor he stands a chance of significant falling. Or on February 04. He has continued slow steady improvement to his confusion and his ability to converse Continue thiamine and folate Appreciate therapy consultation Will see if discharge planning can find a number for his brother so his confusion persists placement can be considered. Obviously if he improves he would discharge home, after being offered alcohol rehabilitation services. (2) Acute metabolic encephalopathy: Improved No evidence of infection (3) Rhabdomyolysis: CK level now normal Resolved (4) Fall: Patient has had multiple falls. From my understanding he is taking antihistamine for chronic dizziness [id number]. This could increase fall risk. Continue to hold. He has been noncompliant with follow-up with ENT and neurology regarding his chronic dizziness which has been going on for years. Physical therapy consultation for ambulation safety, strength, need for any medical equipment at discharge (5) Anemia: Mild anemia is noted. Likely secondary to alcohol. Improving Plan Hyponatremia, improved after discontinuation of fluids. Improving. Check BMP tomorrow Left hand contusion. No evidence of fracture Elevated blood pressure. Metoprolol, losartan Multiple other medical problems as outlined in past medical history Full code Lovenox for DVT prophylaxis Suspect with his degree of improvement, if confusion has abated by tomorrow and he is able to ambulate discharge home would be appropriate Attestations Medical Necessity Statement*: Needs continued hospitalization for alcohol withdrawal, with persistent acute encephalopathy that is now improving. Diagnoses Alcohol withdrawal delirium F10.931 Acute metabolic encephalopathy G93.41 Rhabdomyolysis M62.82 Fall W19.XXXA Anemia D64.9 Time Spent (min) 21
[2023-02-05] MEDS: TRAMadol 50 mg Tablet PO (08:11)
[2023-02-05] MEDS: thiamine 100 mg Tablet PO (08:11)
[2023-02-05] MEDS: losartan 50 mg Tablet PO (08:11)
[2023-02-05] MEDS: multivitamin therapeutic Tablet 1 TAB PO (08:11)
[2023-02-05] MEDS: folic acid 1 mg Tablet PO (08:11)
[2023-02-05] MEDS: metoprolol tartrate 25 mg Tablet PO ×2 (08:11→20:46)
[2023-02-05] MEDS: sodium chloride 0.9% 1,000 ML 50 ML IV (08:12)
[2023-02-05] MEDS: pantoprazole DR 40 mg Tablet PO (09:56)
[2023-02-05] MEDS: enoxaparin 40 mg/0.4 mL Syringe SUBCUT (09:56)
--- NOTE | 2023-02-05 13:37 | XR_ITS ---
WS: [id number] Exam: XR knee RT 1-2V [id number] Date/Time of Exam: 02/05/2023 2:15 PM Reason For Exam: pain Comparison 11/14/2020. No acute fracture or dislocation. There is calcification of the medial and lateral menisci. The joint compartments are relatively well maintained. There is effusion in the suprapatellar bursa. XR/XR knee RT 1-2V 30095 IMPRESSION: 1. Chondrocalcinosis. No fracture. 2. Joint effusion suprapatellar bursa.
[2023-02-05] MEDS: acetaminophen 325 mg Tablet 650 MG PO (15:54)
[2023-02-06] VITALS (9 sets, daily range): BP systolic 119–149; BP diastolic 70–87; PULSE 78–96; RESP 18; TEMP 36.4–37.4; O2SAT 94–99
[2023-02-06] MEDS: sodium chloride 0.9% 1,000 ML 50 ML IV (05:46)
[2023-02-06 06:52] LABS: Anion Gap 20.6 (5-19); Blood Urea Nitrogen 10 mg/dL (8-23); Calcium 8.9 mg/dL (8.5-10.5); Carbon Dioxide 18 mmol/L (22-29); Chloride 100 mmol/L (98-107); Glucose 111 mg/dL (65-115); Osmolality Calculated 278 mOsm/kg (285-295); Potassium 4.6 mmol/L (3.5-5.1); Sodium 134 mmol/L (136-145)
[2023-02-06] MEDS: metoprolol tartrate 25 mg Tablet PO ×2 (09:41→23:55)
[2023-02-06] MEDS: pantoprazole DR 40 mg Tablet PO (09:42)
[2023-02-06] MEDS: losartan 50 mg Tablet PO (09:42)
[2023-02-06] MEDS: folic acid 1 mg Tablet PO (09:42)
[2023-02-06] MEDS: enoxaparin 40 mg/0.4 mL Syringe SUBCUT (09:42)
[2023-02-06] MEDS: multivitamin therapeutic Tablet 1 TAB PO (09:42)
[2023-02-06] MEDS: thiamine 100 mg Tablet PO (09:42)
[2023-02-06] MEDS: TRAMadol 50 mg Tablet PO ×2 (09:43→23:55)
[2023-02-06] MEDS: lanolin oint 7 gm 1 APPLIC TOPICAL (10:32)
--- NOTE | 2023-02-06 15:01 | PC.PT ---
Pt refused to be seen today. Will attempt tomorrow.
--- NOTE | 2023-02-06 15:51 | PM.PN ---
Subjective Subjective: T max 101.6F yesterday afternoon , last febrile on 627 prior to this. He is conversant, able to correctly tell me his name, date of , age, however disoriented as to his whereabouts. Also tangential in conversation. 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 Still confused Medications: Reviewed: Yes Vitals/I&O/Wt Last Vital Signs Temp 98.1 F 02/06/23 15:06 Pulse 80 02/06/23 15:06 Resp 18 02/06/23 15:06 BP 136/85 02/06/23 15:06 Pulse Ox 95 02/06/23 15:06 O2 Del Method Room Air 02/06/23 15:06 02/06/23 02/06/23 02/06/23 06:59 14:59 22:59 Intake Total 1120 / 2426.667 480 / 480 Balance 1120 / 2426.667 480 / 480 Weight last 48 hrs Weight 85.729 kg Weight 86.409 kg Physical Exam Narrative: General: No acute distress, AO x2 HEENT: PERRLA, pupils bilaterally equal and reactive, pallors not present Chest: Normal vesicular breath sounds, no added sounds, equal good air entry bilaterally CVS: S1-S2 regular, no murmurs, no tachycardia, no gallops, no rubs Abdomen: Soft, nontender, no organomegaly, bowel sounds present Neuro: No focal deficits grossly, no facial deformity, AO x2, power 5/5 in all limbs Data 02/05/23 05:15 02/06/23 06:12 A&P Assessment and plan (1) Alcohol withdrawal delirium: Patient presents with acute alcohol withdrawal, and acute encephalopathy. He has continued slow steady improvement to his confusion and his ability to converse, however still oriented x 2 only Continue thiamine and folate Appreciate therapy consultation will attept to call his son tex [phone] (2) Acute metabolic encephalopathy: Improved but still with confusion may be related to wernickes' however with ongoing fever needs further evaluation (3) Rhabdomyolysis: CK level now normal Resolved (4) Fall: Patient has had multiple falls. Physical therapy consultation appreciated for ambulation safety, strength, need for any medical equipment at discharge (5) Anemia: Mild anemia is noted. Likely secondary to alcohol. Improving (6) Fever: fever 101.6F, previosuly one sharla efevr on 02/02 100F Given persistence will re evalaute though still could be related to alcohol withdrawal Check CXR, UA, blood cx, RVP, US liver,procal to evaluate for cirrhosis and ascites ? SBP repeat blood cx last negative from 02/02 Plan Hyponatremia, improved after discontinuation of fluids. Improving. Check BMP tomorrow Left hand contusion. No evidence of fracture Elevated blood pressure. Metoprolol, losartan Multiple other medical problems as outlined in past medical history Full code Lovenox for DVT prophylaxis Suspect with his degree of improvement, if confusion has abated by tomorrow and he is able to ambulate discharge home would be appropriate Attestations Medical Necessity Statement*: ongoing fever, persiting confusion Coding Level of Care Code Acute Code for g Fwd Diagnoses Alcohol withdrawal delirium F10.931 Acute metabolic encephalopathy G93.41 Rhabdomyolysis M62.82 Fall W19.XXXA Anemia D64.9 Fever R50.9
--- NOTE | 2023-02-06 15:59 | XRR_ITS ---
PROCEDURE INFORMATION: Exam: XR Chest Exam date and time: 02/06/2023 4:53 PM Age: 72 years old Clinical indication: Fever TECHNIQUE: Imaging protocol: Radiologic exam of the chest. Views: 1 view. COMPARISON: CR (CHEST, ) 02/02/2023 5:08 AM FINDINGS: Lungs: Unremarkable. No consolidation. Pleural spaces: Unremarkable. No pleural effusion. No pneumothorax. Heart/Mediastinum: Heart size not optimally evaluated with a single AP view of the chest. Bones/joints: Old/healed posterior right 7th rib fracture site. XR/XR chest 1V portable [id number] IMPRESSION: No evidence for acute cardiopulmonary disease.
[2023-02-06] MEDS: cefTRIAXone 1,000 MG in sodium chloride 0.9% (plus) 50 ML 100 MG IV (16:37)
[2023-02-06 16:51] LABS: Lactate (Lactic Acid level) 0.7 mmol/L (0.5-2.2)
[2023-02-06 16:54] LABS: Alanine Aminotransferase 12 U/L (0-41); Alkaline Phosphatase 55 U/L (40-130); Anion Gap 17.7 (5-19); Aspartate Amino Transferase 14 U/L (0-40); Blood Urea Nitrogen 9 mg/dL (8-23); Calcium 8.6 mg/dL (8.5-10.5); Carbon Dioxide 19 mmol/L (22-29); Chloride 99 mmol/L (98-107); Globulin 3.2 g/dL (1.3-4.6); Glucose 98 mg/dL (65-115); Osmolality Calculated 273 mOsm/kg (285-295); Potassium 3.7 mmol/L (3.5-5.1); Sodium 132 mmol/L (136-145); Total Bilirubin 0.3 mg/dL (0.15-1.2); Total Protein 6.2 g/dL (6.6-8.7)
[2023-02-06 17:01] LABS: Procalcitonin 0.15 ng/mL (0-0.5)
[2023-02-06 17:13] LABS: Ammonia 54 umol/L (16-60)
[2023-02-06 18:45] LABS: Adenovirus Not Detected (NOT DETECT); Chlamydia Pneumoniae Not Detected (NOT DETECT); Coronavirus 229E,HKU1,NL63,OC4 Not Detected (NOT DETECT); Human Metapneumovirus Not Detected (NOT DETECT); Human Rhinovirus/Enterovirus Not Detected (NOT DETECT); Influenza A Not Detected (NOT DETECT); Influenza A H1 Not Detected (NOT DETECT); Influenza A H1-2009 Not Detected (NOT DETECT); Influenza A H3 Not Detected (NOT DETECT); Influenza B Not Detected (NOT DETECT); Mycoplasma Pneumoniae Not Detected (NOT DETECT); Parainfluenza Virus Type 1 Not Detected (NOT DETECT); Parainfluenza Virus Type 2 Not Detected (NOT DETECT); Parainfluenza Virus Type 3 Not Detected (NOT DETECT); Parainfluenza Virus Type 4 Not Detected (NOT DETECT); Respiratory Syncytial Virus A Not Detected (NOT DETECT); Respiratory Syncytial Virus B Not Detected (NOT DETECT); SARS-COV-2 Not Detected (NOT DETECT)
[2023-02-06] MEDS: chlordiazePOXIDE 25 mg Capsule PO ×2 (18:48→23:55)
[2023-02-07] VITALS (7 sets, daily range): BP systolic 122–157; BP diastolic 75–96; PULSE 81–96; RESP 18–19; TEMP 36.6–37; O2SAT 94–99
[2023-02-07] MEDS: sodium chloride 0.9% 1,000 ML 50 ML IV ×2 (01:06→22:06)
[2023-02-07 04:39] LABS: Basophils # 0.1 10^3/uL (0.0-0.1); Basophils % 0.7 %; Eosinophils # 0.1 10^3/uL (0.0-0.8); Eosinophils % 1.8 %; Hematocrit 37.8 % (42.0-52.0); Hemoglobin 11.5 g/dL (11.7-16.6); Lymphocytes # 1.4 10^3/uL (0.8-4.8); Lymphocytes % 20.1 %; Mean Corpuscular HGB Conc 30.4 g/dL (30.0-36.0); Mean Corpuscular Hemoglobin 25.6 pg (28.0-34.0); Mean Corpuscular Volume 84.2 fl (80-94); Monocytes # 0.7 10^3/uL (0.2-0.9); Monocytes % 10.4 %; Neutrophils # 4.48 10^3/uL (1.8-7.7); Neutrophils % 65.8 %; Nucleated Red Blood Cells % 0 %; Platelet Count 37 10^3/cmm (130-400); Red Blood Count 4.49 10^6/uL (4.1-5.3); Red Cell Distribution Width 18.1 % (12.1-15.1); White Blood Count 6.8 10^3/uL (4.0-10.0)
[2023-02-07 04:50] LABS: Slide Review Slide Review Perform
[2023-02-07] MEDS: chlordiazePOXIDE 25 mg Capsule PO ×4 (06:37→23:46)
[2023-02-07] MEDS: pantoprazole DR 40 mg Tablet PO (10:17)
[2023-02-07] MEDS: folic acid 1 mg Tablet PO (10:17)
[2023-02-07] MEDS: losartan 50 mg Tablet PO (10:17)
[2023-02-07] MEDS: thiamine 100 mg Tablet PO (10:18)
[2023-02-07] MEDS: multivitamin therapeutic Tablet 1 TAB PO (10:18)
[2023-02-07] MEDS: metoprolol tartrate 25 mg Tablet PO ×2 (10:18→22:26)
--- NOTE | 2023-02-07 11:09 | PC.SOCIAL ---
IMM Update IMM not updated @ this time as patient is alert but not oriented. Called and left message w/ patients son. No anticipating DC in the next 24-48 hours.
--- NOTE | 2023-02-07 11:37 | PC.PT ---
Patient refused x2. Patient reports that the only way he is doing therapy is if I get him up to walk him out of this hospital because he is long overdue to leave. He claims that he is leaving and not doing anything else.
[2023-02-07] MEDS: enoxaparin 40 mg/0.4 mL Syringe SUBCUT (13:57)
[2023-02-07 15:20] LABS: Basophils % 0.4 %; Eosinophils # 0.1 10^3/uL (0.0-0.8); Eosinophils % 1.1 %; Hematocrit 33.7 % (42.0-52.0); Hemoglobin 10.3 g/dL (11.7-16.6); Lymphocytes # 1.1 10^3/uL (0.8-4.8); Lymphocytes % 11.6 %; Mean Corpuscular HGB Conc 30.6 g/dL (30.0-36.0); Mean Corpuscular Hemoglobin 24.5 pg (28.0-34.0); Mean Corpuscular Volume 80.2 fl (80-94); Mean Platelet Volume 8.8 fL (7.4-10.4); Monocytes % 11.1 %; Neutrophils # 7.11 10^3/uL (1.8-7.7); Neutrophils % 75.5 %; Nucleated Red Blood Cells % 0 %; Platelet Count 464 10^3/cmm (130-400); Red Cell Distribution Width 17.8 % (12.1-15.1); White Blood Count 9.4 10^3/uL (4.0-10.0)
--- NOTE | 2023-02-07 16:11 | P.PN_ITS ---
Subjective Subjective: Mr. Lara is able to correctly tell me his name, and date of and the fact that he is in [place]. He does not know that he is in a hospital. He states he is 80 years old. Tells me correctly that he has a son named Pankaj and that he lives in [place]. States that he would like to go home. Upon being told that he is not well enough to go home today he says I do not care . Platelet counts were wrongly reported this morning at 37,000. Repeat CBC checked this afternoon with platelet count at 464,000. t max 99.3F over last 24 hrs Medications: Reviewed: Yes Vitals/I&O/Wt Last Vital Signs Temp 97.8 F 02/07/23 11:02 Pulse 96 02/07/23 11:02 Resp 18 02/07/23 11:02 BP 157/96 02/07/23 11:02 Pulse Ox 96 02/07/23 11:02 O2 Del Method Room Air 02/07/23 11:02 02/07/23 02/07/23 02/07/23 06:59 14:59 22:59 Intake Total 1086.667 / 2216.667 480 / 480 Balance 1086.667 / 2216.667 480 / 480 Weight last 48 hrs Weight 86.183 kg Weight 85.729 kg Physical Exam Narrative: General: No acute distress, AO x2 HEENT: PERRLA, pupils bilaterally equal and reactive, pallors not present Chest: Normal vesicular breath sounds, no added sounds, equal good air entry bilaterally CVS: S1-S2 regular, no murmurs, no tachycardia, no gallops, no rubs Abdomen: Soft, nontender, no organomegaly, bowel sounds present Neuro: No focal deficits grossly, no facial deformity, AO x2, power 5/5 in all limbs Data 02/07/23 15:10 02/06/23 16:14 Micro: Microbiology 02/02/23 06:44 Blood Culture - Final Blood NO GROWTH AFTER 5 DAYS 02/02/23 06:30 Blood Culture - Final Blood NO GROWTH AFTER 5 DAYS 02/06/23 16:22 Blood Culture - Preliminary Blood SPECIMEN COLLECTED 02/06/23 16:14 Blood Culture - Preliminary Blood SPECIMEN COLLECTED A&P Assessment and plan (1) Alcohol withdrawal delirium: Patient presents with acute alcohol withdrawal, and acute encephalopathy. He has continued slow steady improvement to his confusion and his ability to converse, however still oriented x 2 only Continue thiamine and folate continue Librium 25 mg po q6h Appreciate therapy consultation, he is refusing to participate in therapy attempted to call his son pankaj [phone] to discuss dispotion planning, however have got voicemail X 2 . Patient insists on going to home, however not safe for discharge in his current disoriented state. (2) Acute metabolic encephalopathy: Improved but still with confusion may be related to wernickes' however with ongoing fever needs further evaluation , w/up peneing currently afberile for 24 hrs (3) Rhabdomyolysis: CK level now normal Resolved (4) Fall: Patient has had multiple falls. Physical therapy consultation appreciated for ambulation safety, strength, need for any medical equipment at discharge normal ammonia and tsh (5) Anemia: Mild anemia is noted. Likely secondary to alcohol. Improving (6) Fever: fever 101.6F on 02/05, previously one time fever on 02/02 100F Given persistence will re evalaute though still could be related to alcohol withdrawal no pneumonia on CXR, UA negative from 02/02 pending blood cx negative RVP US liver to evaluate for cirrhosis and ascites cancelled as patient refused procal 0.15 repeat blood cx 02/05 thus far negative last negative from 02/02 Plan Hyponatremia, improved after discontinuation of fluids. Improving. Check BMP tomorrow Left hand contusion. No evidence of fracture Elevated blood pressure. Metoprolol, losartan Multiple other medical problems as outlined in past medical history Full code Lovenox for DVT prophylaxis Suspect with his degree of improvement, if confusion has abated by tomorrow and he is able to ambulate discharge home would be appropriate Attestations Medical Necessity Statement*: appropriate disposition planning awaiting improvement in confusion Coding Level of Care Code Acute Code for [facility] Fwd Diagnoses Alcohol withdrawal delirium F10.931 Acute metabolic encephalopathy G93.41 Rhabdomyolysis M62.82 Fall W19.XXXA Anemia D64.9 Fever R50.9
[2023-02-07] MEDS: cefTRIAXone 1,000 MG in sodium chloride 0.9% (plus) 50 ML 100 MG IV (22:05)
[2023-02-08 04:09] VITALS: BP 141/85; PULSE 86; RESP 20; TEMP 36.5; O2SAT 98
[2023-02-08] MEDS: chlordiazePOXIDE 25 mg Capsule PO ×3 (06:35→20:46)
[2023-02-08 07:55] VITALS: BP 146/98; PULSE 94; RESP 16; TEMP 36.7; O2SAT 97
[2023-02-08 09:20] VITALS: BP 146/98
[2023-02-08] MEDS: thiamine 100 mg Tablet PO (09:20)
[2023-02-08] MEDS: multivitamin therapeutic Tablet 1 TAB PO (09:20)
[2023-02-08] MEDS: metoprolol tartrate 25 mg Tablet PO ×2 (09:20→20:46)
[2023-02-08] MEDS: folic acid 1 mg Tablet PO (09:20)
[2023-02-08] MEDS: pantoprazole DR 40 mg Tablet PO (09:20)
[2023-02-08] MEDS: losartan 50 mg Tablet PO (09:20)
[2023-02-08] MEDS: enoxaparin 40 mg/0.4 mL Syringe SUBCUT (10:10)
[2023-02-08 11:43] VITALS: PULSE 83; RESP 16; TEMP 36.8; O2SAT 98
--- NOTE | 2023-02-08 18:44 | P.PN_ITS ---
Subjective Subjective: Patient was seen and examined this morning, he is able to tell me his name, he was not able to tell, the day and date correctly, knows that he is in the [facility], has been pulling his IV lines, patient has remained afebrile, given the fact that his withdrawal status is slowly improving, will decrease the dose of Librium to every 25 mg p.o. every 8 hours, will continue with oral thiamine, mul tivitamins, folic acid. ceftriaxone has been switched to p.o. levofloxacin, Medications: Reviewed: Yes Medication Review Details: Generic Name Dose Route Start Last Admin Trade Name Freq PRN Reason Stop Dose Admin Acetaminophen 650 mg 02/02/23 10:34 02/05/23 15:54 Acetaminophen 32 5 Mg Tablet PO 650 mg Q6H PRN Administration MILD PAIN Enoxaparin Sodium 40 mg 02/02/23 10:34 02/08/23 10:10 Enoxaparin 40 Mg /0.4 Ml Syringe SUBCUT 40 mg Q24H CHRISTOPHER Administration Folic Acid 1 mg 02/02/23 10:02/08/23 09:20 Folic Acid 1 Mg Tablet PO 1 mg DAILY CHRISTOPHER Administration Lanolin 1 applic 02/06/23 09:55 02/06/23 10:32 Lanolin Oint 7 G m TOPICAL 1 applic PRN PRN Administration DRYNESS Losartan Potassium 50 mg 02/03/23 09:00 02/08/23 09:20 Losartan 50 Mg T ablet PO 50 mg DAILY CHRISTOPHER Administration Metoprolol Tartrat e 25 mg 02/03/23 09:00 02/08/23 09:20 Metoprolol Tartr ate 25 Mg Tablet PO 25 mg BID@0900,2100 CHRISTOPHER Administration Multivitamins Ther apeutic 1 tab 02/02/23 10:34 02/08/23 09:20 Multivitamin The rapeutic Tablet PO 1 tab DAILY CHRISTOPHER Administration Pantoprazole Sodiu m 40 mg 02/05/23 09:00 02/08/23 09:[address] 40 Mg Tablet PO 40 mg DAILY CHRISTOPHER Administration Thiamine Mononitra te 100 mg 02/03/23 10:34 02/08/23 09:20 Thiamine 100 Mg Tablet PO 100 mg DAILY CHRISTOPHER Administration Tramadol HCl 50 mg 02/03/23 10:25 02/06/23 23:55 Tramadol 50 Mg T ablet PO 50 mg Q8H PRN Administration MODERATE PAIN Vitals/I&O/Wt Last Vital Signs Temp 98.3 F 02/08/23 11:43 Pulse 83 02/08/23 11:43 Resp 16 02/08/23 11:43 BP 146/98 02/08/23 09:20 Pulse Ox 98 02/08/23 11:43 O2 Del Method Room Air 02/08/23 11:43 02/08/23 02/08/23 02/08/23 06:59 14:59 22:59 Intake Total 120 / 1890 360 / 360 Balance 120 / 1890 360 / 360 Weight last 48 hrs Weight 85.729 kg Weight 86.183 kg Physical Exam HENMT: COMMON NORMALS: normocephalic and atraumatic HEAD & SCALP: normocephalic and atraumatic Resp: COMMON NORMALS: normal respiratory effort, No retractions, No use of accessory muscles and clear to auscultation bilaterally EFFORT & INSPECTION: Yes symmetric chest movement AUSCULTATION: clear to auscultation bilaterally Cardio: COMMON NORMALS: regular rate, regular rhythm, S1 normal heart sound present, S2 normal heart sound present, No gallops present (Cardio), No murmurs present (Cardio), No rub (Cardio) and Peripheral pulses 2+ throughout RATE: regular rate RHYTHM: regular rhythm HEART SOUNDS: S1 normal heart sound present and S2 normal heart sound present PERIPHERAL PULSES: Peripheral pulses 2+ throughout GI: COMMON NORMALS: Normal to inspection, nondistended, normoactive bowel sounds present, Soft to palpation, non-tender, No hepatosplenomegaly present and no masses AUSCULTATION: Yes normoactive bowel sounds PALPATION: Yes Soft to palpation and Yes No hepatosplenomegaly present RECTAL EXAM: Yes deferred Extremity: COMMON NORMALS: no clubbing, cyanosis or edema and no pedal edema Data 02/07/23 15:10 02/06/23 16:14 Micro: Microbiology 02/06/23 16:22 Blood Culture - Preliminary Blood NEGATIVE TO DATE 02/06/23 16:14 Blood Culture - Preliminary Blood NEGATIVE TO DATE A&P Assessment and plan (1) Alcohol withdrawal delirium: Patient presents with acute alcohol withdrawal, and acute encephalopathy. He has continued slow steady improvement to his confusion and his ability to converse, however still oriented x 2 only Continue thiamine and folate continue Librium 25 mg po q6h Appreciate therapy consultation, he is refusing to participate in therapy attempted to call his son tex [phone] to discuss dispotion planning, however have got voicemail X 2 . Patient insists on going to home, however not safe for discharge in his current disoriented state. (2) Acute metabolic encephalopathy: Improved but still with confusion may be related to wernickes' however with ongoing fever needs further evaluation , w/up peneing currently afberile for 24 hrs (3) Rhabdomyolysis: CK level now normal Resolved (4) Fall: Patient has had multiple falls. Physical therapy consultation appreciated for ambulation safety, strength, need for any medical equipment at discharge normal ammonia and tsh (5) Anemia: Mild anemia is noted. Likely secondary to alcohol. Improving (6) Fever: fever 101.6F on 02/05, previously one time fever on 02/02 100F Given persistence will re evalaute though still could be related to alcohol withdrawal no pneumonia on CXR, UA negative from 02/02 pending blood cx negative RVP US liver to evaluate for cirrhosis and ascites cancelled as patient refused procal 0.15 repeat blood cx 02/05 thus far negative last negative from 02/02 Plan Hyponatremia, improved after discontinuation of fluids. Improving. Check BMP tomorrow Left hand contusion. No evidence of fracture Elevated blood pressure. Metoprolol, losartan Multiple other medical problems as outlined in past medical history Full code Lovenox for DVT prophylaxis Suspect with his degree of improvement, if confusion has abated by tomorrow and he is able to ambulate discharge home would be appropriate Attestations Medical Necessity Statement*: Hospital for management of alcohol withdrawal. Coding Level of Care Code Acute Code for [facility] Diagnoses Alcohol withdrawal delirium F10.931 Acute metabolic encephalopathy G93.41 Rhabdomyolysis M62.82 Fall W19.XXXA Anemia D64.9 Fever R50.9
[2023-02-08 19:34] VITALS: BP 109/74; PULSE 96; RESP 18; O2SAT 94
[2023-02-09] VITALS (7 sets, daily range): BP systolic 103–130; BP diastolic 68–83; PULSE 84–91; RESP 15–17; TEMP 36.4–37.1; O2SAT 94–97
[2023-02-09] MEDS: chlordiazePOXIDE 25 mg Capsule PO (05:12)
[2023-02-09] MEDS: levoFLOXacin 750 mg Tablet PO (05:12)
[2023-02-09 05:43] LABS: Basophils # 0.1 10^3/uL (0.0-0.1); Basophils % 0.8 %; Eosinophils # 0.1 10^3/uL (0.0-0.8); Eosinophils % 1.8 %; Hematocrit 34.9 % (42.0-52.0); Hemoglobin 10.6 g/dL (11.7-16.6); Lymphocytes # 1.1 10^3/uL (0.8-4.8); Lymphocytes % 15.3 %; Mean Corpuscular HGB Conc 30.4 g/dL (30.0-36.0); Mean Corpuscular Hemoglobin 24.4 pg (28.0-34.0); Mean Corpuscular Volume 80.2 fl (80-94); Mean Platelet Volume 9.5 fL (7.4-10.4); Monocytes # 0.8 10^3/uL (0.2-0.9); Monocytes % 11.7 %; Neutrophils # 4.95 10^3/uL (1.8-7.7); Nucleated Red Blood Cells % 0 %; Platelet Count 563 10^3/cmm (130-400); Red Blood Count 4.35 10^6/uL (4.1-5.3); Red Cell Distribution Width 17.7 % (12.1-15.1); White Blood Count 7.1 10^3/uL (4.0-10.0)
[2023-02-09 06:06] LABS: Alanine Aminotransferase 23 U/L (0-41); Albumin Level 3.3 g/dL (3.5-5.2); Alkaline Phosphatase 64 U/L (40-130); Anion Gap 13.5 (5-19); Aspartate Amino Transferase 25 U/L (0-40); Blood Urea Nitrogen 8 mg/dL (8-23); Carbon Dioxide 25 mmol/L (22-29); Chloride 99 mmol/L (98-107); Globulin 3.3 g/dL (1.3-4.6); Glucose 104 mg/dL (65-115); Osmolality Calculated 277 mOsm/kg (285-295); Potassium 3.5 mmol/L (3.5-5.1); Sodium 134 mmol/L (136-145); Total Bilirubin 0.2 mg/dL (0.15-1.2); Total Protein 6.6 g/dL (6.6-8.7)
[2023-02-09] MEDS: losartan 50 mg Tablet PO (08:28)
[2023-02-09] MEDS: thiamine 100 mg Tablet PO (08:28)
[2023-02-09] MEDS: metoprolol tartrate 25 mg Tablet PO ×2 (08:30→20:36)
[2023-02-09] MEDS: multivitamin therapeutic Tablet 1 TAB PO (08:30)
[2023-02-09] MEDS: pantoprazole DR 40 mg Tablet PO (08:30)
[2023-02-09] MEDS: folic acid 1 mg Tablet PO (08:30)
--- NOTE | 2023-02-09 08:41 | PC.SOCIAL ---
Imm update Imm updated with patient at bedside. Copy of page 2 provided. Patient verbalized understanding. Copy in chart initialed, dated and timed.
[2023-02-09] MEDS: enoxaparin 40 mg/0.4 mL Syringe SUBCUT (11:41)
--- NOTE | 2023-02-09 15:38 | P.PN_ITS ---
Subjective Subjective: Patient was seen and examined this morning, he is able to tell me his name, he knows that he is in [place], currently he is having visual hallucinations. Medications: Reviewed: Yes Medication Review Details: Generic Name Dose Route Start Last Admin Trade Name Freq PRN Reason Stop Dose Admin Acetaminophen 650 mg 02/02/23 10:34 02/05/23 15:54 Acetaminophen 32 5 Mg Tablet PO 650 mg Q6H PRN Administration MILD PAIN Enoxaparin Sodium 40 mg 02/02/23 10:34 02/09/23 11:41 Enoxaparin 40 Mg /0.4 Ml Syringe SUBCUT 40 mg Q24H CHRISTOPHER Administration Folic Acid 1 mg 02/02/23 10:34 02/09/23 08:30 Folic Acid 1 Mg Tablet PO 1 mg DAILY CHRISTOPHER Administration Lanolin 1 applic 02/06/23 09:55 02/06/23 10:32 Lanolin Oint 7 G m TOPICAL 1 applic PRN PRN Administration DRYNESS Levofloxacin 750 mg 02/09/23 06:00 02/09/23 05:12 Levofloxacin 750 Mg Tablet PO 750 mg DAILY@0600 CHRISTOPHER Administration Protocol Losartan Potassium 50 mg 02/03/23 09:00 02/09/23 08:28 Losartan 50 Mg T ablet PO 50 mg DAILY CHRISTOPHER Administration Metoprolol Tartrat e 25 mg 02/03/23 09:00 02/09/23 08:30 Metoprolol Tartr ate 25 Mg Tablet PO 25 mg BID@0900,2100 CHRISTOPHER Administration Multivitamins Ther apeutic 1 tab 02/02/23 10:34 02/09/23 08:30 Multivitamin The rapeutic Tablet PO 1 tab DAILY CHRISTOPHER Administration Pantoprazole Sodiu m 40 mg 02/05/23 09:00 02/09/23 08:[address] 40 Mg Tablet PO 40 mg DAILY CHRISTOPHER Administration Thiamine HCl 100 mg 02/09/23 13:45 02/09/23 14:40 Thiamine 100 Mg/ Ml Sdv IM 100 mg DAILY CHRISTOPHER Administration Tramadol HCl 50 mg 02/03/23 10:25 02/06/23 23:55 Tramadol 50 Mg T ablet PO 50 mg Q8H PRN Administration MODERATE PAIN Vitals/I&O/Wt Last Vital Signs Temp 98.2 F 02/09/23 12:00 Pulse 87 02/09/23 12:00 Resp 16 02/09/23 12:00 BP 128/83 02/09/23 12:00 Pulse Ox 94 02/09/23 12:00 O2 Del Method Room Air 02/09/23 12:00 02/09/23 02/09/23 02/09/23 06:59 14:59 22:59 Intake Total 480 / 480 Balance 480 / 480 Weight last 48 hrs Weight 86.137 kg Weight 85.729 kg Physical Exam HENMT: COMMON NORMALS: normocephalic and atraumatic HEAD & SCALP: normocephalic and atraumatic Resp: COMMON NORMALS: normal respiratory effort, No retractions, No use of accessory muscles and clear to auscultation bilaterally EFFORT & INSPECTION: Yes symmetric chest movement AUSCULTATION: clear to auscultation bilaterally Cardio: COMMON NORMALS: regular rate, regular rhythm, S1 normal heart sound present, S2 normal heart sound present, No gallops present (Cardio), No murmurs present (Cardio), No rub (Cardio) and Peripheral pulses 2+ throughout RATE: regular rate RHYTHM: regular rhythm HEART SOUNDS: S1 normal heart sound present and S2 normal heart sound present PERIPHERAL PULSES: Peripheral pulses 2+ throughout GI: COMMON NORMALS: Normal to inspection, nondistended, normoactive bowel sounds present, Soft to palpation, non-tender, No hepatosplenomegaly present and no masses AUSCULTATION: Yes normoactive bowel sounds PALPATION: Yes Soft to palpation and Yes No hepatosplenomegaly present RECTAL EXAM: Yes deferred Extremity: COMMON NORMALS: no clubbing, cyanosis or edema and no pedal edema Data 02/09/23 04:50 02/09/23 04:50 A&P Assessment and plan (1) Alcohol withdrawal delirium: Patient presents with acute alcohol withdrawal, and acute encephalopathy. He has continued slow steady improvement to his confusion and his ability to converse, however still oriented x 2 only Continue thiamine and folate continue Librium 25 mg po q8h prn Appreciate therapy consultation, he is refusing to participate in therapy attempted to call his son tex [phone] to discuss dispotion planning, however have got voicemail X 2 . Patient insists on going to home, however not safe for discharge in his current disoriented state. (2) Acute metabolic encephalopathy: Improved but still with confusion may be related to wernickes' however with ongoing fever needs further evaluation , w/up peneing currently afberile for 24 hrs (3) Rhabdomyolysis: CK level now normal Resolved (4) Fall: Patient has had multiple falls. Physical therapy consultation appreciated for ambulation safety, strength, need for any medical equipment at discharge normal ammonia and tsh (5) Anemia: Mild anemia is noted. Likely secondary to alcohol. Improving (6) Fever: fever 101.6F on 02/05, previously one time fever on 02/02 100F Given persistence will re evalaute though still could be related to alcohol withdrawal no pneumonia on CXR, UA negative from 02/02 pending blood cx negative RVP US liver to evaluate for cirrhosis and ascites cancelled as patient refused procal 0.15 repeat blood cx 02/05 thus far negative last negative from 02/02 Plan Hyponatremia, improved after discontinuation of fluids. Improving. Check BMP tomorrow Left hand contusion. No evidence of fracture Elevated blood pressure. Metoprolol, losartan Multiple other medical problems as outlined in past medical history Full code Lovenox for DVT prophylaxis Disposition: Given his current mental status, patient will possibly need some kind of placement, as he does not seems to be appropriate to be discharged home, at least for now, if he shows improvement in coming days then at that point in time things might change. Family was reached out today, possibly if he does not improve in terms of his mentation, guardianship will have to be pursued. Attestations Medical Necessity Statement*: Needs to be in hospital for management of alcohol withdrawal. Coding Level of Care Code Acute Code for [facility] Diagnoses Alcohol withdrawal delirium F10.931 Acute metabolic encephalopathy G93.41 Rhabdomyolysis M62.82 Fall W19.XXXA Anemia D64.9 Fever R50.9
[2023-02-10] VITALS (7 sets, daily range): BP systolic 94–141; BP diastolic 66–93; PULSE 85–110; RESP 16–19; TEMP 36.4–36.8; O2SAT 91–97
[2023-02-10] MEDS: levoFLOXacin 750 mg Tablet PO (05:14)
[2023-02-10] MEDS: TRAMadol 50 mg Tablet PO ×2 (09:30→19:28)
[2023-02-10] MEDS: losartan 50 mg Tablet PO (09:30)
[2023-02-10] MEDS: metoprolol tartrate 25 mg Tablet PO (09:30)
[2023-02-10] MEDS: pantoprazole DR 40 mg Tablet PO (09:31)
[2023-02-10] MEDS: folic acid 1 mg Tablet PO (09:31)
[2023-02-10] MEDS: multivitamin therapeutic Tablet 1 TAB PO (09:31)
[2023-02-10] MEDS: enoxaparin 40 mg/0.4 mL Syringe SUBCUT (12:22)
[2023-02-10 15:39] LABS: Lyme AB Screen <0.90 index
--- NOTE | 2023-02-10 19:10 | PM.PN ---
Subjective Subjective: Patient was seen and examined this morning, he is able to tell me his name, he is not holding any meaningful conversation, is not able to answer questions appropriately, when I asked him that he is is not safe to go home for now, and will be in his interest to go to [facility] at least for some time He is strongly opposed the idea of going to [facility], he wants to go home in [place]. Medications: Reviewed: Yes Medication Review Details: Generic Name Dose Route Start Last Admin Trade Name Freq PRN Reason Stop Dose Admin Acetaminophen 650 mg 02/02/23 10:34 02/05/23 15:54 Acetaminophen 32 5 Mg Tablet PO 650 mg Q6H PRN Administration MILD PAIN Enoxaparin Sodium 40 mg 02/02/23 10:34 02/10/23 12:22 Enoxaparin 40 Mg /0.4 Ml Syringe SUBCUT 40 mg Q24H CHRISTOPHER Administration Folic Acid 1 mg 02/02/23 10:34 02/10/23 09:31 Folic Acid 1 Mg Tablet PO 1 mg DAILY CHRISTOPHER Administration Lanolin 1 applic 02/06/23 09:55 02/06/23 10:32 Lanolin Oint 7 G m TOPICAL 1 applic PRN PRN Administration DRYNESS Levofloxacin 750 mg 02/09/23 06:00 02/10/23 05:14 Levofloxacin 750 Mg Tablet PO 750 mg DAILY@0600 CHRISTOPHER Administration Protocol Losartan Potassium 50 mg 02/03/23 09:00 02/10/23 09:30 Losartan 50 Mg T ablet PO 50 mg DAILY CHRISTOPHER Administration Metoprolol Tartrat e 25 mg 02/03/23 09:00 02/10/23 09:30 Metoprolol Tartr ate 25 Mg Tablet PO 25 mg BID@0900,2100 CHRISTOPHER Administration Multivitamins Ther apeutic 1 tab 02/02/23 10:34 02/10/23 09:31 Multivitamin The rapeutic Tablet PO 1 tab DAILY CHRISTOPHER Administration Pantoprazole Sodiu m 40 mg 02/05/23 09:00 02/10/23 09:[address] 40 Mg Tablet PO 40 mg DAILY CHRISTOPHER Administration Thiamine HCl 100 mg 02/09/23 13:45 02/10/23 09:31 Thiamine 100 Mg/ Ml Sdv IM 100 mg DAILY CHRISTOPHER Administration Tramadol HCl 50 mg 02/03/23 10:25 02/10/23 09:30 Tramadol 50 Mg T ablet PO 50 mg Q8H PRN Administration MODERATE PAIN Vitals/I&O/Wt Last Vital Signs Temp 98.1 F 02/10/23 16:31 Pulse 85 02/10/23 16:31 Resp 16 02/10/23 16:31 BP 96/67 02/10/23 16:31 Pulse Ox 95 02/10/23 16:31 O2 Del Method Room Air 02/10/23 16:31 02/10/23 02/10/23 02/10/23 06:59 14:59 22:59 Intake Total 240 / 240 120 / 360 Balance 240 / 240 120 / 360 Weight last 48 hrs Weight 83.37 kg Weight 86.137 kg Physical Exam HENMT: COMMON NORMALS: normocephalic and atraumatic HEAD & SCALP: normocephalic and atraumatic Resp: COMMON NORMALS: normal respiratory effort, No retractions, No use of accessory muscles and clear to auscultation bilaterally EFFORT & INSPECTION: Yes symmetric chest movement AUSCULTATION: clear to auscultation bilaterally Cardio: COMMON NORMALS: regular rate, regular rhythm, S1 normal heart sound present, S2 normal heart sound present, No gallops present (Cardio), No murmurs present (Cardio), No rub (Cardio) and Peripheral pulses 2+ throughout RATE: regular rate RHYTHM: regular rhythm HEART SOUNDS: S1 normal heart sound present and S2 normal heart sound present PERIPHERAL PULSES: Peripheral pulses 2+ throughout GI: COMMON NORMALS: Normal to inspection, nondistended, normoactive bowel sounds present, Soft to palpation, non-tender, No hepatosplenomegaly present and no masses AUSCULTATION: Yes normoactive bowel sounds PALPATION: Yes Soft to palpation and Yes No hepatosplenomegaly present RECTAL EXAM: Yes deferred Extremity: COMMON NORMALS: no clubbing, cyanosis or edema and no pedal edema Data 02/09/23 04:50 02/09/23 04:50 A&P Assessment and plan (1) Alcohol withdrawal delirium: Patient presents with acute alcohol withdrawal, and acute encephalopathy. He has continued slow steady improvement to his confusion and his ability to converse, however still oriented x 2 only Continue thiamine and folate continue Librium 25 mg po q8h prn Appreciate therapy consultation, he is refusing to participate in therapy attempted to call his son [place] [phone] to discuss dispotion planning, however have got voicemail X 2 . Patient insists on going to home, however not safe for discharge in his current disoriented state. (2) Acute metabolic encephalopathy: Improved but still with confusion may be related to wernickes' however with ongoing fever needs further evaluation , w/up peneing currently afberile for 24 hrs (3) Rhabdomyolysis: CK level now normal Resolved (4) Fall: Patient has had multiple falls. Physical therapy consultation appreciated for ambulation safety, strength, need for any medical equipment at discharge normal ammonia and tsh (5) Anemia: Mild anemia is noted. Likely secondary to alcohol. Improving (6) Fever: fever 101.6F on 02/05, previously one time fever on 02/02 100F Given persistence will re evalaute though still could be related to alcohol withdrawal no pneumonia on CXR, UA negative from 02/02 pending blood cx negative RVP US liver to evaluate for cirrhosis and ascites cancelled as patient refused procal 0.15 repeat blood cx 02/05 thus far negative last negative from 02/02 Plan Hyponatremia, improved after discontinuation of fluids. Improving. Check BMP tomorrow Left hand contusion. No evidence of fracture Elevated blood pressure. Metoprolol, losartan Multiple other medical problems as outlined in past medical history Full code Lovenox for DVT prophylaxis Disposition: Given his current mental status, patient will possibly need some kind of placement, as he does not seems to be appropriate to be discharged home, at least for now, if he shows improvement in coming days then at that point in time things might change. Family was reached out today, possibly if he does not improve in terms of his mentation, guardianship will have to be pursued. Attestations Medical Necessity Statement*: In hospital for management of altered mental status. Coding Level of Care Code Acute Code for [facility] Diagnoses Alcohol withdrawal delirium F10.931 Acute metabolic encephalopathy G93.41 Rhabdomyolysis M62.82 Fall W19.XXXA Anemia D64.9 Fever R50.9
--- NOTE | 2023-02-10 20:59 | PC.NURSE ---
Patient's blood pressure 94/66. Dr. Louie notified. Ordered to non-admin 25 mg Metoprolol that is due at this time.
[2023-02-10] MEDS: acetaminophen 325 mg Tablet 650 MG PO (21:02)
[2023-02-11] VITALS (8 sets, daily range): BP systolic 92–110; BP diastolic 52–72; PULSE 75–104; RESP 16–19; TEMP 36.4–37; O2SAT 93–96; BMI 26.7
[2023-02-11] MEDS: levoFLOXacin 750 mg Tablet PO (05:44)
[2023-02-11] MEDS: TRAMadol 50 mg Tablet PO ×2 (09:01→16:45)
[2023-02-11] MEDS: losartan 50 mg Tablet PO (09:01)
[2023-02-11] MEDS: folic acid 1 mg Tablet PO (09:02)
[2023-02-11] MEDS: pantoprazole DR 40 mg Tablet PO (09:02)
[2023-02-11] MEDS: metoprolol tartrate 25 mg Tablet PO ×2 (09:03→21:46)
[2023-02-11] MEDS: multivitamin therapeutic Tablet 1 TAB PO (09:03)
[2023-02-11] MEDS: enoxaparin 40 mg/0.4 mL Syringe SUBCUT (10:28)
[2023-02-11] MEDS: acetaminophen 325 mg Tablet 650 MG PO (17:17)
[2023-02-11] MEDS: chlordiazePOXIDE 25 mg Capsule PO (17:47)
--- NOTE | 2023-02-11 18:34 | CTR_ITS ---
PROCEDURE INFORMATION: Exam: CT Head Without Contrast Exam date and time: 02/11/2023 7:02 PM Age: 72 years old Clinical indication: Pain; Headache; Additional info: Persistent headache TECHNIQUE: Imaging protocol: Computed tomography of the head without contrast. Radiation optimization: All CT scans at this facility use at least one of these dose optimization techniques: automated exposure control; mA and/or kV adjustment per patient size (includes targeted exams where dose is matched to clinical indication); or iterative reconstruction. REPORTING DATA: Count of CT and Cardiac NM exams in prior 12 months: This patient has received 11 known CTs and 0 known cardiac nuclear medicine studies in the 12 months prior to the current study. COMPARISON: CT head wo con* [id number] 02/02/2023 5:30 AM RADIATION DOSE METRICS: Total DLP (mGy-cm): 1202.5 FINDINGS: Brain: No focal hemorrhage or midline shift is identified. The ventricles and parenchyma show moderate atrophy and chronic bicerebral white matter ischemic change. Cerebral ventricles: Moderate persistent ventriculomegaly is chronic. No acute hydrocephalus. Paranasal sinuses: No evidence of acute sinusitis. Mastoid air cells: Visualized mastoid air cells are well aerated. Bones/joints: No displaced skull fracture is noted. Old nasal bone deformities. Soft tissues: Unremarkable. Vasculature: Diffuse vascular calcifications are present. CT/CT head wo con* [id number] IMPRESSION: 1. No acute intracranial abnormality. 2. Moderate age-related changes. 3. Moderate persistent ventriculomegaly is chronic. No acute hydrocephalus. NPH is possible.
--- NOTE | 2023-02-11 18:53 | P.PN_ITS ---
Subjective Subjective: Patient was seen and examined this morning, he was complaining of severe headache, CT head without contrast has been ordered for severe headache. still has significant confusion. Psych has been consulted to evaluate him further Medications: Reviewed: Yes Medication Review Details: Generic Name Dose Route Start Last Admin Trade Name Joseluisq PRN Reason Stop Dose Admin Acetaminophen 650 mg 02/02/23 10:34 02/11/23 17:17 Acetaminophen 32 5 Mg Tablet PO 650 mg Q6H PRN Administration MILD PAIN Chlordiazepoxide 25 mg 02/09/23 13:02 02/11/23 17:47 Chlordiazepoxide 25 Mg Capsule PO 25 mg Q8H PRN Administration AGITATION Enoxaparin Sodium 40 mg 02/02/23 10:34 02/11/23 10:28 Enoxaparin 40 Mg /0.4 Ml Syringe SUBCUT 40 mg Q24H CHRISTOPHER Administration Folic Acid 1 mg 02/02/23 10:34 02/11/23 09:02 Folic Acid 1 Mg Tablet PO 1 mg DAILY CHRISTOPHER Administration Lanolin 1 applic 02/06/23 09:55 02/06/23 10:32 Lanolin Oint 7 G m TOPICAL 1 applic PRN PRN Administration DRYNESS Levofloxacin 750 mg 02/09/23 06:00 02/11/23 05:44 Levofloxacin 750 Mg Tablet PO 750 mg DAILY@0600 CHRISTOPHER Administration Protocol Losartan Potassium 50 mg 02/03/23 09:00 02/11/23 09:01 Losartan 50 Mg T ablet PO 50 mg DAILY CHRISTOPHER Administration Metoprolol Tartrat e 25 mg 02/03/23 09:00 02/11/23 09:03 Metoprolol Tartr ate 25 Mg Tablet PO 25 mg BID@0900,2100 CHRISTOPHER Administration Multivitamins Ther apeutic 1 tab 02/02/23 10:34 02/11/23 09:03 Multivitamin The rapeutic Tablet PO 1 tab DAILY CHRISTOPHER Administration Pantoprazole Sodiu m 40 mg 02/05/23 09:00 02/11/23 09:[address] 40 Mg Tablet PO 40 mg DAILY CHRISTOPHER Administration Thiamine HCl 100 mg 02/09/23 13:45 02/11/23 09:03 Thiamine 100 Mg/ Ml Sdv IM 100 mg DAILY CHRISTOPHER Administration Tramadol HCl 50 mg 02/11/23 16:37 02/11/23 16:45 Tramadol 50 Mg T ablet PO 50 mg Q8H PRN Administration MODERATE PAIN Vitals/I&O/Wt Last Vital Signs Temp 97.8 F 02/11/23 16:00 Pulse 86 02/11/23 16:00 Resp 19 H 02/11/23 16:00 BP 110/58 02/11/23 16:00 Pulse Ox 93 02/11/23 16:00 O2 Del Method Room Air 02/11/23 08:00 02/11/23 02/11/23 02/11/23 06:59 14:59 22:59 Intake Total 480 / 480 Balance 480 / 480 Weight last 48 hrs Weight 82.157 kg Weight 83.37 kg Physical Exam HENMT: COMMON NORMALS: normocephalic and atraumatic HEAD & SCALP: normoce phalic and atraumatic Resp: COMMON NORMALS: normal respiratory effort, No retractions, No use of accessory muscles and clear to auscultation bilaterally EFFORT & INSPECTION: Yes symmetric chest movement AUSCULTATION: clear to auscultation bilaterally Cardio: COMMON NORMALS: regular rate, regular rhythm, S1 normal heart sound present, S2 normal heart sound present, No gallops present (Cardio), No murmurs present (Cardio), No rub (Cardio) and Peripheral pulses 2+ throughout RATE: regular rate RHYTHM: regular rhythm HEART SOUNDS: S1 normal heart sound pr esent and S2 normal heart sound present PERIPHERAL PULSES: Peripheral pulses 2+ throughout GI: COMMON NORMALS: Normal to inspection, nondistended, normoactive bowel sounds present, Soft to palpation, non-tender, No hepatosplenomegaly present and no masses AUSCULTATION: Yes normoactive bowel sounds PALPATION: Yes Soft to palpation and Yes No hepatosplenomegaly present RECTAL EXAM: Yes deferred Extremity: COMMON NORMALS: no clubbing, cyanosis or edema and no pedal edema Data 02/09/23 04:50 02/09/23 04:50 Micro: Microbiology 02/06/23 16:22 Blood Culture - Final Blood NO GROWTH AFTER 5 DAYS 02/06/23 16:14 Blood Culture - Final Blood NO GROWTH AFTER 5 DAYS A&P Assessment and plan (1) Alcohol withdrawal delirium: Patient presents with acute alcohol withdrawal, and acute encephalopathy. He has continued slow steady improvement to his confusion and his ability to converse, however still oriented x 2 only Continue thiamine and folate continue Librium 25 mg po q8h prn Appreciate therapy consultation, he is refusing to participate in therapy attempted to call his son [place] [phone] to discuss dispotion planning, however have got voicemail X 2 . Patient insists on going to home, however not safe for discharge in his current disoriented state. (2) Acute metabolic encephalopathy: Improved but still with confusion may be related to wernickes' however with ongoing fever needs further evaluation , w/up peneing currently afberile for 24 hrs (3) Rhabdomyolysis: CK level now normal Resolved (4) Fall: Patient has had multiple falls. Physical therapy consultation appreciated for ambulation safety, strength, need for any medical equipment at discharge normal ammonia and tsh (5) Anemia: Mild anemia is noted. Likely secondary to alcohol. Improving (6) Fever: fever 101.6F on 02/05, previously one time fever on 02/02 100F Given persistence will re evalaute though still could be related to alcohol withdrawal no pneumonia on CXR, UA negative from 02/02 pending blood cx negative RVP US liver to evaluate for cirrhosis and ascites cancelled as patient refused procal 0.15 repeat blood cx 02/05 thus far negative last negative from 02/02 Plan Hyponatremia, improved after discontinuation of fluids. Improving. Check BMP tomorrow Left hand contusion. No evidence of fracture Elevated blood pressure. Metoprolol, losartan Multiple other medical problems as outlined in past medical history Full code Lovenox for DVT prophylaxis Disposition: Given his current mental status, patient will possibly need some kind of placement, as he does not seems to be appropriate to be discharged home, at least for now, if he shows improvement in coming days then at that point in time things might change. Family was reached out today, possibly if he does not improve in terms of his mentation, guardianship will have to be pursued. Attestations Medical Necessity Statement*: Needs to be in hospital for safe placement. Coding Level of Care Code Acute Code for [facility] Diagnoses Alcohol withdrawal delirium F10.931 Acute metabolic encephalopathy G93.41 Rhabdomyolysis M62.82 Fall W19.XXXA Anemia D64.9 Fever R50.9
[2023-02-11] MEDS: oxyCODONE-APAP 5-325 mg Tablet 1 TAB PO (21:55)
[2023-02-12] VITALS (8 sets, daily range): BP systolic 94–121; BP diastolic 59–86; PULSE 49–103; RESP 12–18; TEMP 36.3–37; O2SAT 93–98
[2023-02-12] MEDS: levoFLOXacin 750 mg Tablet PO (05:50)
[2023-02-12] MEDS: pantoprazole DR 40 mg Tablet PO (08:45)
[2023-02-12] MEDS: multivitamin therapeutic Tablet 1 TAB PO (08:45)
[2023-02-12] MEDS: folic acid 1 mg Tablet PO (08:46)
[2023-02-12] MEDS: TRAMadol 50 mg Tablet PO (10:35)
[2023-02-12] MEDS: chlordiazePOXIDE 25 mg Capsule PO ×3 (10:35→21:36)
[2023-02-12] MEDS: oxyCODONE-APAP 5-325 mg Tablet 1 TAB PO (11:26)
[2023-02-12] MEDS: enoxaparin 40 mg/0.4 mL Syringe SUBCUT (11:27)
--- NOTE | 2023-02-12 16:05 | PM.PN ---
Subjective Subjective: Patient was seen and examined this morning, continues to show intermittent agitation confusion, today he was also talking about using a knife. CT head without contrast done yesterday for severe headache: Showed no acute intracranial pathology. Medications: Reviewed: Yes Medication Review Details: Generic Name Dose Route Start Last Admin Trade Name Lana PRN Reason Stop Dose Admin Acetaminophen 650 mg 02/02/23 10:34 02/11/23 17:17 Acetaminophen 32 5 Mg Tablet PO 650 mg Q6H PRN Administration MILD PAIN Enoxaparin Sodium 40 mg 02/02/23 10:34 02/12/23 11:27 Enoxaparin 40 Mg /0.4 Ml Syringe SUBCUT 40 mg Q24H CHRISTOPHER Administration Folic Acid 1 mg 02/02/23 10:34 02/12/23 08:46 Folic Acid 1 Mg Tablet PO 1 mg DAILY CHRISTOPHER Administration Lanolin 1 applic 02/06/23 09:55 02/06/23 10:32 Lanolin Oint 7 G m TOPICAL 1 applic PRN PRN Administration DRYNESS Multivitamins Ther apeutic 1 tab 02/02/23 10:34 02/12/23 08:45 Multivitamin The rapeutic Tablet PO 1 tab DAILY CHRISTOPHER Administration Oxycodone/Acetamin ophen 1 tab 02/11/23 18:32 02/12/23 11:26 Oxycodone-Apap 5 -325 Mg Tablet PO 1 tab Q4H PRN Administration SEVERE PAIN Pantoprazole Sodiu m 40 mg 02/05/23 09:00 02/12/23 08:[address] 40 Mg Tablet PO 40 mg DAILY CHRISTOPHER Administration Thiamine HCl 100 mg 02/09/23 13:45 02/12/23 08:44 Thiamine 100 Mg/ Ml Sdv IM 100 mg DAILY CHRISTOPHER Administration Tramadol HCl 50 mg 02/11/23 16:37 02/12/23 10:35 Tramadol 50 Mg T ablet PO 50 mg Q8H PRN Administration MODERATE PAIN Vitals/I&O/Wt Last Vital Signs Temp 97.8 F 02/12/23 12:00 Pulse 103 H 02/12/23 12:00 Resp 18 02/12/23 12:00 BP 121/86 02/12/23 12:00 Pulse Ox 95 02/12/23 12:00 O2 Del Method Room Air 02/12/23 12:00 02/12/23 02/12/2302/12/23 06:59 14:59 22:59 Intake Total 360 / 360 Output Total 250 / 250 Balance -250 / 230 360 / 360 Weight last 48 hrs Weight 83.007 kg Weight 82.157 kg Physical Exam HENMT: COMMON NORMALS: normocephalic and atraumatic HEAD & SCALP: normocephalic and atraumatic Resp: COMMON NORMALS: normal respiratory effort, No retractions, No use of accessory muscles and clear to auscultation bilaterally EFFORT & INSPECTION: Yes symmetric chest movement AUSCULTATION: clear to auscultation bilaterally Cardio: COMMON NORMALS: regular rate, regular rhythm, S1 normal heart sound present, S2 normal heart sound present, No gallops present (Cardio), No murmurs present (Cardio), No rub (Cardio) and Peripheral pulses 2+ throughout RATE: regular rate RHYTHM: regular rhythm HEART SOUNDS: S1 normal heart sound present and S2 normal heart sound present PERIPHERAL PULSES: Peripheral pulses 2+ throughout GI: COMMON NORMALS: Normal to inspection, nondistended, normoactive bowel sounds present, Soft to palpation, non-tender, No hepatosplenomegaly present and no masses AUSCULTATION: Yes normoactive bowel sounds PALPATION: Yes Soft to palpation and Yes No hepatosplenomegaly present RECTAL EXAM: Yes deferred Extremity: COMMON NORMALS: no clubbing, cyanosis or edema and no pedal edema Urinary Catheter Management: Parisi: Cath Placed During This Visit: yes Reason for Continuing Indwelling Catheter: Not indwelling catheter Urinary Catheter Date of Insertion: 02/12/23 Urinary Catheter Time of Insertion: 00:20 Data 02/09/23 04:50 02/09/23 04:50 Micro: Microbiology 02/06/23 16:22 Blood Culture - Final Blood NO GROWTH AFTER 5 DAYS 02/06/23 16:14 Blood Culture - Final Blood NO GROWTH AFTER 5 DAYS A&P Assessment and plan (1) Alcohol withdrawal delirium: Patient presents with acute alcohol withdrawal, and acute encephalopathy. He has continued slow steady improvement to his confusion and his ability to converse, however still oriented x 2 only Continue thiamine and folate continue Librium 25 mg po q8h prn Appreciate therapy consultation, he is refusing to participate in therapy attempted to call his son [place] [phone] to discuss dispotion planning, however have got voicemail X 2 . Patient insists on going to home, however not safe for discharge in his current disoriented state. (2) Acute metabolic encephalopathy: Improved but still with confusion may be related to wernickes' however with ongoing fever needs further evaluation , w/up peneing currently afberile for 24 hrs (3) Rhabdomyolysis: CK level now normal Resolved (4) Fall: Patient has had multiple falls. Physical therapy consultation appreciated for ambulation safety, strength, need for any medical equipment at discharge normal ammonia and tsh (5) Anemia: Mild anemia is noted. Likely secondary to alcohol. Improving (6) Fever: fever 101.6F on 02/05, previously one time fever on 02/02 100F Given persistence will re evalaute though still could be related to alcohol withdrawal no pneumonia on CXR, UA negative from 02/02 pending blood cx negative RVP US liver to evaluate for cirrhosis and ascites cancelled as patient refused procal 0.15 repeat blood cx 02/05 thus far negative last negative from 02/02 Plan Hyponatremia, improved after discontinuation of fluids. Improving. Check BMP tomorrow Left hand contusion. No evidence of fracture Elevated blood pressure. Metoprolol, losartan Multiple other medical problems as outlined in past medical history Full code Lovenox for DVT prophylaxis Disposition: Given his current mental status, patient will possibly need some kind of placement, as he does not seems to be appropriate to be discharged home, at least for now, if he shows improvement in coming days then at that point in time things might change. Family was reached out today, possibly if he does not improve in terms of his mentation, guardianship will have to be pursued. Psych on board Attestations Medical Necessity Statement*: Needs to be in hospital for safe placement. Coding Level of Care Code Acute Code for [facility] Fwd Diagnoses Alcohol withdrawal delirium F10.931 Acute metabolic encephalopathy G93.41 Rhabdomyolysis M62.82 Fall W19.XXXA Anemia D64.9 Fever R50.9
--- NOTE | 2023-02-12 18:52 | W.PM.PSYCONS ---
Providers/Reason for Consult Consulting Physican/Specialty*: Keanu Westbrook MD/Psychiatry Reason for Consult*: Dementia, decision making capacity Attending Physician: Rafael Martino MD Primary Care Provider: David Menon MD Psych Consult HPI History of Present Illness Canelo Lara is a 72 year old male admitted with alcohol withdrawal delirium, alcoholic encephalopathy and Wernicke-Korsakoff syndrome who had apparently expressed desire to return home. The patient was interviewed in his room and had refused to provide any meaningful information as he had stated that the service writer advisor of this note was making him angry. He had seemed to think that the service writer advisor of this note had met him before. He had stated that he needed to go back to his room. He was reporting that he had lived alone and had been able to take care of himself and then had asked that the service writer advisor of this note leave and never return. Past psychiatric history: Unknown Current medications: Folic acid, gabapentin, losartan, thiamine, ferrous sulfate, Medical history: Anemia, rhabdomyolysis, acute metabolic encephalopathy, alcohol withdrawal delirium, insomnia, hypertension, unspecified gait disorder, hiatal hernia, tinnitus, liver cirrhosis Allergies: No known drug allergies Drug and alcohol history: There was a history of significant alcohol abuse noted with patient reported to consume half a pint to a pint of whiskey on a daily basis Family psychiatric history: Unknown Social history: Patient was unable to provide any clear information including date of or any clear family history. He is apparently single and has no contact with his children. Per previous records he has a sister that lives in [place]. Meds Home Medications and Allergies Home Medications Medication Instructions Recorded Confirmed Last Taken Type multivitamin 1 tab PO DAILY 11/14/20 02/02/23 06/09/22 History ibuprofen 200 mg tablet 400 - 600 mg PO Q6H PRN Pain 09/26/21 02/02/23 Unknown History folic acid 1 mg tablet 1 mg PO DAILY #60 tabs 06/01/22 02/02/23 06/09/22 Rx losartan 25 mg tablet 50 mg PO DAILY #60 tabs 06/01/22 02/02/23 06/09/22 Rx thiamine HCl (vitamin B1) 100 mg 100 mg PO DAILY #90 tabs 06/01/22 02/02/23 06/09/22 Rx tablet tramadol 50 mg tablet 50 mg PO Q12H PRN pain #20 tabs 12/20/22 02/02/23 Unknown Rx dimenhydrinate 50 mg tablet 50 mg PO Q6H PRN dizziness or 01/19/23 02/02/23 Unknown Rx vertigo #30 tabs mupirocin 2 % topical ointment 1 applic topical BID #15 grams 01/19/23 02/02/23 Unknown Rx ferrous sulfate 325 mg (65 mg 325 mg PO DAILY 02/02/23 02/02/23 Unknown History iron) tablet (FeroSul) gabapentin 100 mg capsule 100 mg PO Q8H PRN Pain 02/02/23 02/02/23 Unknown History Allergies Allergy/AdvReac Type Severity Reaction Status Date / Time No Known Allergies Allergy Verified 02/02/23 05:00 Current Medications Current Medications Generic Name Dose Route Start Last Admin Trade Name Freq PRN Reason Stop Dose Admin Acetaminophen 650 mg 02/02/23 10:34 02/11/23 17:17 Acetaminophen 325 Mg Tablet PO 650 mg Q6H PRN Administration MILD PAIN Chlordiazepoxide 25 mg 02/12/23 16:15 02/12/23 16:55 Chlordiazepoxide 25 Mg Capsule PO 25 mg Q6H CHRISTOPHER Administration Enoxaparin Sodium 40 mg 02/02/23 10:34 02/12/23 11:27 Enoxaparin 40 Mg/0.4 Ml Syringe SUBCUT 40 mg Q24H CHRISTOPHER Administration Folic Acid 1 mg 02/02/23 10:34 02/12/23 08:46 Folic Acid 1 Mg Tablet PO 1 mg DAILY CHRISTOPHER Administration Lanolin 1 applic 02/06/23 09:55 02/06/23 10:32 Lanolin Oint 7 Gm TOPICAL 1 applic PRN PRN Administration DRYNESS Multivitamins Therapeutic 1 tab 02/02/23 10:34 02/12/23 08:45 Multivitamin Therapeutic Tablet PO 1 tab DAILY CHRISTOPHER Administration Oxycodone/Acetaminophen 1 tab 02/11/23 18:32 02/12/23 11:26 Oxycodone-Apap 5-325 Mg Tablet PO 1 tab Q4H PRN Administration SEVERE PAIN Pantoprazole Sodium 40 mg 02/05/23 09:00 02/12/23 08:[address] 40 Mg Tablet PO 40 mg DAILY CHRISTOPHER Administration Thiamine HCl 100 mg 02/09/23 13:45 02/12/23 08:44 Thiamine 100 Mg/Ml Sdv IM 100 mg DAILY CHRISTOPHER Administration Tramadol HCl 50 mg 02/11/23 16:37 02/12/23 10:35 Tramadol 50 Mg Tablet PO 50 mg Q8H PRN Administration MODERATE PAIN PFSH NPU PFSH: Medical History Abrasion of face Acute confusion Alcohol abuse For the moment the patient's sober. He is competent, per my assessment today, to assume responsibility for his health care and wellbeing. Alcoholism Concussion without loss of consciousness Encephalopathy Gait disorder Hepatic encephalopathy Hypertension Insomnia disorder Laceration of scalp Large hiatal hernia Liver cirrhosis Pneumothorax Recurrent falls Surgical History H/O inguinal hernia repair Family History Denies family history of Clotting disorder Dementia Chronic kidney disease (CKD) Cancer Social History Smoking and tobacco status: never smoked Alcohol intake: current Substance/Drug Use: never Lives independently: Yes Household members: other Details: He lives alone Housing: House Marital status: Single Marital status details: Not in contact with his children, 2 sisters try to check up on him, sister Marely Barkley from [place] [phone] Mental Status Exam MSE Comments: He was alert and oriented to person only. He was unable to provide the date the year the month or the day of the week. He was able to state that he was in the hospital but was unable to identify the name or location. His hygiene was poor. His speech was slow but increased in volume and diminished in production. He did not appear capable of following three-step commands. He did not appear to understand simple yes/no questions. When asked what he would do if he left the hospital he stated that he planned on drinking and dying. He was unable to name president. He was unable to spell the word world forwards or backwards with evidence of impaired attention. Patient had refused to read a word presented during evaluation at which point the patient had discontinued the evaluation. He did not appear to be responding to internal stimuli. There was no clear evidence of delusional thinking. His insight is poor. His judgment is impaired. His impulse control appeared poor as well. His recent and remote memory were clearly impaired Vitals/I&O/Wt Last Vital Signs Temp 98.1 F 02/12/23 16:00 Pulse 90 02/12/23 16:00 Resp 15 02/12/23 16:00 BP 100/67 02/12/23 16:00 Pulse Ox 94 02/12/23 16:00 O2 Del Method Room Air 02/12/23 16:00 02/12/23 02/12/23 02/12/23 06:59 14:59 22:59 Intake Total 360 / 360 240 / 600 Output Total 250 / 250 Balance -250 / 230 360 / 360 240 / 600 Weight last 48 hrs Weight 83.007 kg Weight 82.157 kg Physical Exam Urinary Catheter Management: Parisi: Cath Placed During This Visit: yes Reason for Continuing Indwelling Catheter: Other Urinary Catheter Date of Insertion: 02/12/23 Urinary Catheter Time of Insertion: 00:20 Data NPU 02/09/23 04:50 02/09/23 04:50 Micro: Microbiology 02/06/23 16:22 Blood Culture - Final Blood NO GROWTH AFTER 5 DAYS 02/06/23 16:14 Blood Culture - Final Blood NO GROWTH AFTER 5 DAYS Microbiology 02/06/23 16:22 Blood Blood Culture - Final NO GROWTH AFTER 5 DAYS 02/06/23 16:14 Blood Blood Culture - Final NO GROWTH AFTER 5 DAYS A&P Assessment and plan (1) Dementia associated with alcoholism: (2) Encephalopathy: (3) Alcohol withdrawal delirium: Plan The patient continues to show evidence of dementia possibly as part of Wernicke-Korsakoff syndrome. He likely will remain unable to provide any reasonable can consent to make any decisions at this time as he lacks this capacity. He is unable to understand or make reasonable decisions regarding his care as he is unable to weigh and assess risks and benefits and provide any reasonable answer. He is unable to live independently and will require guardianship. Psychiatry will follow if needed. Hospital should begin with plan for pursuing guardianship if no family member is capable of doing this at this time. Involuntary Hold Information 96 Hour Hold: 96 Hour Involuntary Admission: Yes 96 Hour Hold Start Date: 10/30/19 96 Hour Hold Start Time: 13:01 96 Hour Hold Ending Date: 11/03/19 96 Hour Hold Ending Time: 13:30 Attestations NPU Medical Necessity Statement*: Patient requires guardianship and will stay in hospital until that time that placement to be found. Coding Level of Care Code Acute Code for [facility] Fwd Diagnoses Dementia associated with alcoholism F10.27 Encephalopathy G93.40 Alcohol withdrawal delirium F10.931
[2023-02-13] VITALS (7 sets, daily range): BP systolic 118–140; BP diastolic 74–85; PULSE 86–103; RESP 16–18; TEMP 36.4–37.2; O2SAT 93–97
[2023-02-13] MEDS: oxyCODONE-APAP 5-325 mg Tablet 1 TAB PO ×2 (00:28→16:33)
[2023-02-13] MEDS: chlordiazePOXIDE 25 mg Capsule PO ×4 (04:10→21:35)
[2023-02-13] MEDS: enoxaparin 40 mg/0.4 mL Syringe SUBCUT (09:23)
[2023-02-13] MEDS: folic acid 1 mg Tablet PO (09:24)
[2023-02-13] MEDS: pantoprazole DR 40 mg Tablet PO (09:24)
[2023-02-13] MEDS: multivitamin therapeutic Tablet 1 TAB PO (09:24)
--- NOTE | 2023-02-13 18:55 | P.PN_ITS ---
Subjective Subjective: Patient is currently being evaluated by psychiatry, no significant event reported overnight. Medications: Reviewed: Yes Medication Review Details: Generic Name Dose Route Start Last Admin Trade Name Freq PRN Reason Stop Dose Admin Acetaminophen 650 mg 02/02/23 10:34 02/11/23 17:17 Acetaminophen 32 5 Mg Tablet PO 650 mg Q6H PRN Administration MILD PAIN Chlordiazepoxide 25 mg 02/12/23 16:15 02/13/23 16:33 Chlordiazepoxide 25 Mg Capsule PO 25 mg Q6H CHRISTOPHER Administration Enoxaparin Sodium 40 mg 02/02/23 10:34 02/13/23 09:23 Enoxaparin 40 Mg /0.4 Ml Syringe SUBCUT 40 mg Q24H CHRISTOPHER Administration Folic Acid 1 mg 02/02/23 10:34 02/13/23 09:24 Folic Acid 1 Mg Tablet PO 1 mg DAILY CHRISTOPHER Administration Lanolin 1 applic 02/06/23 09:55 02/06/23 10:32 Lanolin Oint 7 G m TOPICAL 1 applic PRN PRN Administration DRYNESS Multivitamins Ther apeutic 1 tab 02/02/23 10:34 02/13/23 09:24 Multivitamin The rapeutic Tablet PO 1 tab DAILY CHRISTOPHER Administration Oxycodone/Acetamin ophen 1 tab 02/11/23 18:32 02/13/23 16:33 Oxycodone-Apap 5 -325 Mg Tablet PO 1 tab Q4H PRN Administration SEVERE PAIN Pantoprazole Sodiu m 40 mg 02/05/23 09:00 02/13/23 09:[address] 40 Mg Tablet PO 40 mg DAILY CHRISTOPHER Administration Thiamine HCl 100 mg 02/09/23 13:45 02/13/23 09:24 Thiamine 100 Mg/ Ml Sdv IM 100 mg DAILY CHRISTOPHER Administration Tramadol HCl 50 mg 02/11/23 16:37 02/12/23 10:35 Tramadol 50 Mg T ablet PO 50 mg Q8H PRN Administration MODERATE PAIN Vitals/I&O/Wt Last Vital Signs Temp 98.6 F 02/13/23 15:30 Pulse 96 02/13/23 15:30 Resp 16 02/13/23 16:33 BP 140/85 02/13/23 15:30 Pulse Ox 97 02/13/23 15:30 O2 Del Method Room Air 02/13/23 15:30 02/13/23 02/13/23 02/13/23 06:59 14:59 22:59 Intake Total 240 / 840 50 / 50 120 / 170 Output Total 200 / 200 Balance 40 / 640 50 / 50 120 / 170 Weight last 48 hrs Weight 59.874 kg Weight 83.007 kg Physical Exam HENMT: COMMON NORMALS: normocephalic and atraumatic HEAD & SCALP: normocephalic and atraumatic Resp: COMMON NORMALS: normal respiratory effort, No retractions, No use of accessory muscles and clear to auscultation bilaterally EFFORT & INSPECTION: Yes symmetric chest movement AUSCULTATION: clear to auscultation bilaterally Cardio: COMMON NORMALS: regular rate, regular rhythm, S1 normal heart sound present, S2 normal heart sound present, No gallops present (Cardio), No murmurs present (Cardio), No rub (Cardio) and Peripheral pulses 2+ throughout RATE: regular rate RHYTHM: regular rhythm HEART SOUNDS: S1 normal heart sound present and S2 normal heart sound present PERIPHERAL PULSES: Peripheral pulses 2+ throughout GI: COMMON NORMALS: Normal to inspection, nondistended, normoactive bowel sounds present, Soft to palpation, non-tender, No hepatosplenomegaly present and no masses AUSCULTATION: Yes normoactive bowel sounds PALPATION: Yes Soft to palpation and Yes No hepatosplenomegaly present RECTAL EXAM: Yes deferred Extremity: COMMON NORMALS: no clubbing, cyanosis or edema and no pedal edema Urinary Catheter Management: Parisi: Cath Placed During This Visit: yes Reason for Continuing Indwelling Catheter: Other Urinary Catheter Date of Insertion: 02/12/23 Urinary Catheter Time of Insertion: 00:20 Data 02/09/23 04:50 02/09/23 04:50 A&P Assessment and plan (1) Alcohol withdrawal delirium: Patient presents with acute alcohol withdrawal, and acute encephalopathy. He has continued slow steady improvement to his confusion and his ability to converse, however still oriented x 2 only Continue thiamine and folate continue Librium 25 mg po q8h prn Appreciate therapy consultation, he is refusing to participate in therapy attempted to call his son [place] [phone] to discuss dispotion planning, however have got voicemail X 2 . Patient insists on going to home, however not safe for discharge in his current disoriented state. (2) Acute metabolic encephalopathy: Improved but still with confusion may be related to wernickes' however with ongoing fever needs further evaluation , w/up peneing currently afberile for 24 hrs (3) Rhabdomyolysis: CK level now normal Resolved (4) Fall: Patient has had multiple falls. Physical therapy consultation appreciated for ambulation safety, strength, need for any medical equipment at discharge normal ammonia and tsh (5) Anemia: Mild anemia is noted. Likely secondary to alcohol. Improving (6) Fever: fever 101.6F on 02/05, previously one time fever on 02/02 100F Given persistence will re evalaute though still could be related to alcohol withdrawal no pneumonia on CXR, UA negative from 02/02 pending blood cx negative RVP US liver to evaluate for cirrhosis and ascites cancelled as patient refused procal 0.15 repeat blood cx 02/05 thus far negative last negative from 02/02 Plan Hyponatremia, improved after discontinuation of fluids. Improving. Check BMP tomorrow Left hand contusion. No evidence of fracture Elevated blood pressure. Metoprolol, losartan Multiple other medical problems as outlined in past medical history Full code Lovenox for DVT prophylaxis Disposition: Given his current mental status, patient will possibly need some kind of placement, as he does not seems to be appropriate to be discharged home, at least for now, if he shows improvement in coming days then at that point in time things might change. Family was reached out today, possibly if he does not improve in terms of his mentation, guardianship will have to be pursued. Psych on board Attestations Medical Necessity Statement*: In hospital for altered mental status safe discharge planning. Coding Level of Care Code Acute Code for [facility] Diagnoses Alcohol withdrawal delirium F10.931 Acute metabolic encephalopathy G93.41 Rhabdomyolysis M62.82 Fall W19.XXXA Anemia D64.9 Fever R50.9
[2023-02-14 05:00] VITALS: BP 140/60
[2023-02-14] MEDS: chlordiazePOXIDE 25 mg Capsule PO ×4 (05:09→23:14)
[2023-02-14 07:20] VITALS: BP 146/94; PULSE 89; RESP 16; TEMP 36.7; O2SAT 97
--- NOTE | 2023-02-14 09:23 | PC.PT ---
Therapist attempted at 8:30 this morning but patient refused, saying no to everything therapist said while laying in bed with eyes closed. He was not interested in sitting up to eat breakfast.
[2023-02-14 09:38] VITALS: RESP 16
[2023-02-14] MEDS: oxyCODONE-APAP 5-325 mg Tablet 1 TAB PO (09:38)
[2023-02-14] MEDS: folic acid 1 mg Tablet PO (09:38)
[2023-02-14] MEDS: multivitamin therapeutic Tablet 1 TAB PO (09:38)
[2023-02-14] MEDS: pantoprazole DR 40 mg Tablet PO (09:38)
[2023-02-14] MEDS: enoxaparin 40 mg/0.4 mL Syringe SUBCUT (09:40)
[2023-02-14 10:57] VITALS: BP 121/86; PULSE 92; RESP 16; TEMP 36.9; O2SAT 95
[2023-02-14 15:08] VITALS: BP 114/69; PULSE 86; RESP 16; TEMP 36.7; O2SAT 95
--- NOTE | 2023-02-14 15:43 | P.PN_ITS ---
Subjective Subjective: Patient has not shown any significant change in his mentation, guardianship process will be initiated, as he is not capable of taking care of himself. Medications: Reviewed: Yes Medication Review Details: Generic Name Dose Route Start Last Admin Trade Name Freq PRN Reason Stop Dose Admin Acetaminophen 650 mg 02/02/23 10:34 02/11/23 17:17 Acetaminophen 32 5 Mg Tablet PO 650 mg Q6H PRN Administration MILD PAIN Chlordiazepoxide 25 mg 02/12/23 16:15 02/14/23 09:38 Chlordiazepoxide 25 Mg Capsule PO 25 mg Q6H CHRISTOPHER Administration Enoxaparin Sodium 40 mg 02/02/23 10:34 02/14/23 09:40 Enoxaparin 40 Mg /0.4 Ml Syringe SUBCUT 40 mg Q24H CHRISTOPHER Administration Folic Acid 1 mg 02/02/23 10:34 02/14/23 09:38 Folic Acid 1 Mg Tablet PO 1 mg DAILY CHRISTOPHER Administration Lanolin 1 applic 02/06/23 09:55 02/06/23 10:32 Lanolin Oint 7 G m TOPICAL 1 applic PRN PRN Administration DRYNESS Multivitamins Ther apeutic 1 tab 02/02/23 10:34 02/14/23 09:38 Multivitamin The rapeutic Tablet PO 1 tab DAILY CHRISTOPHER Administration Oxycodone/Acetamin ophen 1 tab 02/11/23 18:32 02/14/23 09:38 Oxycodone-Apap 5 -325 Mg Tablet PO 1 tab Q4H PRN Administration SEVERE PAIN Pantoprazole Sodiu m 40 mg 02/05/23 09:00 02/14/23 09:[address] 40 Mg Tablet PO 40 mg DAILY CHRISTOPHER Administration Thiamine HCl 100 mg 02/09/23 13:45 02/14/23 09:39 Thiamine 100 Mg/ Ml Sdv IM 100 mg DAILY CHRISTOPHER Administration Tramadol HCl 50 mg 02/11/23 16:37 02/12/23 10:35 Tramadol 50 Mg T ablet PO 50 mg Q8H PRN Administration MODERATE PAIN Vitals/I&O/Wt Last Vital Signs Temp 98.1 F 02/14/23 15:08 Pulse 86 02/14/23 15:08 Resp 16 02/14/23 15:08 BP 114/69 02/14/23 15:08 Pulse Ox 95 02/14/23 15:08 O2 Del Method Room Air 02/14/23 15:08 02/14/23 02/14/23 02/14/23 06:59 14:59 22:59 Intake Total 100 / 100 Output Total 200 / 200 Balance -200 / -30 100 / 100 Weight last 48 hrs Weight 59.874 kg Physical Exam HENMT: COMMON NORMALS: normocephalic and atraumatic HEAD & SCALP: normocephalic and atraumatic Resp: COMMON NORMALS: normal respiratory effort, No retractions, No use of accessory muscles and clear to auscultation bilaterally EFFORT & INSPECTION: Yes symmetric chest movement AUSCULTATION: clear to auscultation bilaterally Cardio: COMMON NORMALS: regular rate, regular rhythm, S1 normal heart sound present, S2 normal heart sound present, No gallops present (Cardio), No murmurs present (Cardio), No rub (Cardio) and Peripheral pulses 2+ throughout RATE: regular rate RHYTHM: regular rhythm HEART SOUNDS: S1 normal heart sound present and S2 normal heart sound present PERIPHERAL PULSES: Peripheral pulses 2+ throughout GI: COMMON NORMALS: Normal to inspection, nondistended, normoactive bowel sounds present, Soft to palpation, non-tender, No hepatosplenomegaly present and no masses AUSCULTATION: Yes normoactive bowel sounds PALPATION: Yes Soft to palpation and Yes No hepatosplenomegaly present RECTAL EXAM: Yes deferred Extremity: COMMON NORMALS: no clubbing, cyanosis or edema and no pedal edema Urinary Catheter Management: Parisi: Cath Placed During This Visit: yes Reason for Continuing Indwelling Catheter: Acute Urinary Retention or Obstruction Urinary Catheter Date of Insertion: 02/12/23 Urinary Catheter Time of Insertion: 00:20 Data 02/09/23 04:50 02/09/23 04:50 A&P Assessment and plan (1) Alcohol withdrawal delirium: Patient presents with acute alcohol withdrawal, and acute encephalopathy. He has continued slow steady improvement to his confusion and his ability to converse, however still oriented x 2 only Continue thiamine and folate continue Librium 25 mg po q8h prn Appreciate therapy consultation, he is refusing to participate in therapy attempted to call his son tex [phone] to discuss dispotion planning, however have got voicemail X 2 . Patient insists on going to home, however not safe for discharge in his current disoriented state. (2) Acute metabolic encephalopathy: Improved but still with confusion may be related to wernickes' however with ongoing fever needs further evaluation , w/up peneing currently afberile for 24 hrs (3) Rhabdomyolysis: CK level now normal Resolved (4) Fall: Patient has had multiple falls. Physical therapy consultation appreciated for ambulation safety, strength, need for any medical equipment at discharge normal ammonia and tsh (5) Anemia: Mild anemia is noted. Likely secondary to alcohol. Improving (6) Fever: fever 101.6F on 02/05, previously one time fever on 02/02 100F Given persistence will re evalaute though still could be related to alcohol withdrawal no pneumonia on CXR, UA negative from 02/02 pending blood cx negative RVP US liver to evaluate for cirrhosis and ascites cancelled as patient refused procal 0.15 repeat blood cx 02/05 thus far negative last negative from 02/02 Plan 72-year-old male with past medical history of, hypertension, hepatic encephalopathy, liver cirrhosis, alcohol abuse disorder, Warnicke's Korsakoff syndrome, was brought in initially for the management of Alcohol withdrawal, patient was kept on CIWA protocol was on Librium, IV fluids, thiamine folic acid multivitamin, CT head without contrast x2 was negative for any acute intracranial, during the hospital stay he was also managed for, rhabdomyolysis, fevers, he was empirically on antibiotics blood cultures were negative, x-ray chest was, not showing any infiltrates, consolidation, UA was clean, respiratory viral panel was negative, Pro-Manish was normal, repeat blood culture was negative, antibiotics were discontinued, patient has history of, recurrent fall at home, physical therapy was on board, he was also managed for hyponatremia, initially was on IV fluids but later was discontinued With improvement in hyponatremia, BMP was monitored, due to fall, he has left, and contusion as well as left upper lid, contusion, given the fact the patient, overall mentation, is poor, and he was having significant, metabolic encephalopathy, with, hallucination as well as, significant confusion, psych was, consulted for possible guardianship, as the patient is not, safe to go home independently, and he was not agreeing to go to nursing, family was also contacted, they wanted hospital to pursue guardianship, guardianship process has been initiated, currently he is awaiting safe discharge. Attestations Medical Necessity Statement*: Awaiting guardianship. Coding Level of Care Code Acute Code for [facility] Fwd Diagnoses Alcohol withdrawal delirium F10.931 Acute metabolic encephalopathy G93.41 Rhabdomyolysis M62.82 Fall W19.XXXA Anemia D64.9 Fever R50.9
[2023-02-14 19:13] VITALS: BP 126/84; PULSE 93; RESP 17; TEMP 36.7; O2SAT 96
[2023-02-15] VITALS (7 sets, daily range): BP systolic 110–163; BP diastolic 60–92; PULSE 88–118; RESP 16–18; TEMP 36.3–37.8; O2SAT 92–97
[2023-02-15 04:47] LABS: Glucose Point of Care 102 mg/dL (70-110)
[2023-02-15 05:13] LABS: Basophils # 0.1 10^3/uL (0.0-0.1); Basophils % 0.4 %; Eosinophils # 0.1 10^3/uL (0.0-0.8); Lymphocytes % 7.7 %; Mean Corpuscular HGB Conc 28.9 g/dL (30.0-36.0); Mean Platelet Volume 9.2 fL (7.4-10.4); Monocytes # 0.8 10^3/uL (0.2-0.9); Monocytes % 5.8 %; Neutrophils # 11.34 10^3/uL (1.8-7.7); Neutrophils % 84.7 %; Nucleated Red Blood Cells % 0 %; Platelet Count 675 10^3/cmm (130-400); Red Blood Count 4.58 10^6/uL (4.1-5.3); Red Cell Distribution Width 17.7 % (12.1-15.1); White Blood Count 13.4 10^3/uL (4.0-10.0)
[2023-02-15 05:31] LABS: Alanine Aminotransferase 19 U/L (0-41); Albumin Level 3.3 g/dL (3.5-5.2); Alkaline Phosphatase 85 U/L (40-130); Aspartate Amino Transferase 17 U/L (0-40); Blood Urea Nitrogen 10 mg/dL (8-23); Calcium 8.7 mg/dL (8.5-10.5); Carbon Dioxide 26 mmol/L (22-29); Chloride 95 mmol/L (98-107); Globulin 3.5 g/dL (1.3-4.6); Glucose 95 mg/dL (65-115); Osmolality Calculated 271 mOsm/kg (285-295); Sodium 131 mmol/L (136-145); Total Bilirubin 0.2 mg/dL (0.15-1.2); Total Protein 6.8 g/dL (6.6-8.7)
--- NOTE | 2023-02-15 08:39 | PC.SOCIAL ---
IMM Not Given IMM not updated with pt. Guardianship is now being pursued for pt. Pt is not expected to d/c in the next 24-48hrs.
--- NOTE | 2023-02-15 08:43 | PC.NURSE ---
This nurse enter patients room and spoke to patient. Patient would not verbally respond to the nurse. This nurse performed a sternal rub on patient and patient verbally responded. Vitals signs were rechecked and all were WNL. A glucose was checked and read at 101. This nurse notified Dr Rangel of patients change in status and assessment findings. No new orders given at this time.
[2023-02-15 08:47] LABS: Glucose Point of Care 101 mg/dL (70-110)
--- NOTE | 2023-02-15 09:08 | W.PM.NPUPNS ---
Subjective NPU Subjective: Patient is 72-year-old white male with Wernicke's encephalopathy who continued to show no evidence of any changes. He had appeared confused and had asked the typewriter assembler of this note to help him move some equipment out of his car and stated that he would pay me for it. The patient had proceeded to then become agitated when asked questions regarding his whereabouts and had asked the typewriter assembler of this note to leave him alone. Mental Status Exam MSE Comments: He was alert and oriented to person only. He was unable to provide the date the year the month or the day of the week. He was able to state that he was in the hospital but was unable to identify the name or location. His hygiene was poor. His speech was slow but increased in volume and diminished in production. He did not appear capable of following three-step commands. He did not appear to understand simple yes/no questions. When asked what he would do if he left the hospital he stated that he planned on drinking and dying. He was unable to name president. He was unable to spell the word world forwards or backwards with evidence of impaired attention. Patient had refused to read a word presented during evaluation at which point the patient had discontinued the evaluation. He did not appear to be responding to internal stimuli. There was no clear evidence of delusional thinking. His insight is poor. His judgment is impaired. His impulse control appeared poor as well. His recent and remote memory were clearly impaired Vitals/I&O/Wt Last Vital Signs Temp 98.6 F 02/15/23 07:15 Pulse 96 02/15/23 07:15 Resp 16 02/15/23 07:15 BP 163/89 02/15/23 07:15 Pulse Ox 96 02/15/23 07:15 O2 Del Method Room Air 02/15/23 07:15 02/14/23 02/15/23 02/15/23 22:59 06:59 14:59 Intake Total 50 / 150 Output Total 480 / 480 100 / 580 Balance -430 / -330 -100 / -430 Weight last 48 hrs Weight 81.284 kg Physical Exam Urinary Catheter Management: Parisi: Cath Placed During This Visit: yes Reason for Continuing Indwelling Catheter: Acute Urinary Retention or Obstruction Urinary Catheter Date of Insertion: 02/12/23 Urinary Catheter Time of Insertion: 00:20 Data NPU 02/15/23 04:50 02/15/23 04:50 A&P Assessment and plan (1) Dementia associated with alcoholism: (2) Encephalopathy: (3) Alcohol withdrawal delirium: Plan The patient continues to show evidence of dementia possibly as part of Wernicke-Korsakoff syndrome. He likely will remain unable to provide any reasonable can consent to make any decisions at this time as he lacks this capacity. He is unable to understand or make reasonable decisions regarding his care as he is unable to weigh and assess risks and benefits and provide any reasonable answer. He is unable to live independently and will require guardianship. Psychiatry will follow if needed. Hospital should begin with plan for pursuing guardianship if no family member is capable of doing this at this time. --interrogatory completed, awaiting guardianship hearing. Involuntary Hold Information 96 Hour Hold: 96 Hour Involuntary Admission: Yes 96 Hour Hold Start Date: 10/30/19 96 Hour Hold Start Time: 13:01 96 Hour Hold Ending Date: 11/03/19 96 Hour Hold Ending Time: 13:30 Attestations NPU Medical Necessity Statement*: Patient needs placement in [facility] facility after guardianship hearing completed. Coding Level of Care Code Acute Code for g Fwd Diagnoses Dementia associated with alcoholism F10.27 Encephalopathy G93.40 Alcohol withdrawal delirium F10.931
[2023-02-15] MEDS: enoxaparin 40 mg/0.4 mL Syringe SUBCUT (09:41)
[2023-02-15] MEDS: multivitamin therapeutic Tablet 1 TAB PO (09:42)
[2023-02-15] MEDS: pantoprazole DR 40 mg Tablet PO (09:42)
[2023-02-15] MEDS: folic acid 1 mg Tablet PO (09:42)
[2023-02-15 10:50] LABS: Bilirubin Urine Neg (Negative); Blood Urine 2+ (Negative); Glucose Urine UA Norm (Normal); Ketones Urine Negative (Negative); Leukocyte Esterase Urine Trace (Negative); Nitrate Urine Negative (Negative); Protein Urine Neg (Negative); RBC Urine 0-4 /hpf (0-2); Specific Gravity, Urine 1.025 (1.005-1.030); Squamous Epithelial Cell Urine RARE /hpf (0-5); Urine Appearance Clear (CLEAR); Urine Color Yellow (Yellow); Urobilinogen Urine Norm (Negative); WBC Urine 0-4 /hpf (0-5); pH Urine 5 (5-7)
[2023-02-15 10:51] LABS: Add Urine Culture? Yes; Bacteria Urine TRACE /hpf; Calcium Oxalate Crystals Urine 0-4 /hpf; Mucus Urine 1+ /hpf
[2023-02-15 14:16] LABS: Iron 18 ug/dL (59-158); Percent Saturation 9.8 % (20-50); Total Iron Binding Capacity 183 mcg/dl; Unsaturated Iron Binding 165 ug/dL (112-347)
[2023-02-15 14:32] LABS: Vitamin B12 1305 pg/mL (232-1245)
[2023-02-15 15:05] LABS: Ammonia 51 umol/L (16-60)
--- NOTE | 2023-02-15 16:20 | PM.PN ---
Subjective Subjective: Hospital course, labs appreciated. Patient deemed not able to take care of himself or make medical decisions for himself. State guardianship is being pursued. On examination patient sitting up in chair, drowsy but not able to have complete conversation. Verbalizes his name on asking but otherwise not oriented. Remains on room air. Tmax 100 Fahrenheit today afternoon. Afebrile prior to this. Blood work done for the first time in last 1 week shows leukocytosis with white count up to 13.4, stable hemoglobin, stable CMP. Patient remains on room air. Vitals/I&O/Wt Last Vital Signs Temp 100.0 F H 02/15/23 16:00 Pulse 108 H 02/15/23 16:00 Resp 16 02/15/23 16:00 BP 116/78 02/15/23 16:00 Pulse Ox 92 02/15/23 16:00 O2 Del Method Room Air 02/15/23 07:15 02/15/23 02/15/23 02/15/23 06:59 14:59 22:59 Intake Total 60 / 60 Output Total 100 / 580 Balance -100 / -430 60 / 60 Weight last 48 hrs Weight 81.284 kg Physical Exam Const: COMMON NORMALS: negative for patient oriented x3 GENERAL APPEARANCE: cooperative and well hydrated ORIENTATION/CONSCIOUSNESS: Yes awake, Yes oriented to person and Yes confused; not oriented to place and not oriented to time HENMT: COMMON NORMALS: normocephalic and atraumatic HEAD & SCALP: normocephalic and atraumatic OTHER: Sutures present over the left eyebrow, dry without any drainage Resp: COMMON NORMALS: normal respiratory effort, No retractions, No use of accessory muscles and clear to auscultation bilaterally EFFORT & INSPECTION: Yes symmetric chest movement AUSCULTATION: clear to auscultation bilaterally Cardio: COMMON NORMALS: regular rate, regular rhythm, S1 normal heart sound present, S2 normal heart sound present, No gallops present (Cardio), No murmurs present (Cardio), No rub (Cardio) and Peripheral pulses 2+ throughout RATE: regular rate RHYTHM: regular rhythm HEART SOUNDS: S1 normal heart sound present and S2 normal heart sound present PERIPHERAL PULSES: Peripheral pulses 2+ throughout GI: COMMON NORMALS: Normal to inspection, nondistended, normoactive bowel sounds present, Soft to palpation, non-tender, No hepatosplenomegaly present and no masses AUSCULTATION: Yes normoactive bowel sounds PALPATION: Yes Soft to palpation and Yes No hepatosplenomegaly present RECTAL EXAM: Yes deferred Extremity: COMMON NORMALS: no clubbing, cyanosis or edema and no pedal edema Neuro: COMMON NORMALS: negative for patient oriented x3 SENSORIUM/ORIENTATION: Yes oriented to person, No oriented to place and No oriented to time Urinary Catheter Management: Parisi: Cath Placed During This Visit: yes, but has since been removed by the nurse Reason for Continuing Indwelling Catheter: Decision to DC Catheter Urinary Catheter Date of Insertion: 02/12/23 Urinary Catheter Time of Insertion: 00:20 Date Urinary Catheter Removed: 02/15/23 Time Urinary Catheter Discontinued: 09:53 Data 02/15/23 04:50 02/15/23 04:50 A&P Assessment and plan (1) Alcohol withdrawal delirium: Patient presents with acute alcohol withdrawal, and acute encephalopathy. With high concerns for Warnicke's encephalopathy. CT head showing concerns for possible NPH with ventriculomegaly. Wean Librium to 25 mg every 12 hourly. Hold off on morning dose. Continue with IM thiamine. Appreciate therapy consultation, he is refusing to participate in therapy attempted to call his son [place] [phone] to discuss dispotion planning, however have got voicemail X 2 . Patient insists on going to home, however not safe for discharge in his current disoriented state. (2) Acute metabolic encephalopathy: Improved But still has episodes of confusion most likely in setting of chronic alcohol abuse leading to Warnicke's (3) Rhabdomyolysis: Resolved. (4) Fall: Patient has had multiple falls. Most likely in setting of chronic alcohol abuse and Warnicke's. Appreciate PT evaluation. (5) Anemia: Hemoglobin stable. (6) Fever: Mild leukocytosis. Fever 100 Fahrenheit today prior to that, 101.6F on 02/05, previously one time fever on 02/02 100F. For now empirically start on IV ceftriaxone. Blood cultures if temperature more than 101.4 Fahrenheit. Check urinalysis, portable chest x-ray, procalcitonin. Plan Left upper eyelid contusion: Sutures present. Day 13. Will remove. Discharge planning: Patient seen by psych team as well. Patient deemed not safe to be able to make his own medical decisions. Unsafe to take care of himself. Guardianship is being pursued. Eventual plan to discharge to SNF with level 2 once guardianship has been pursued. Attestations Medical Necessity Statement*: Requires further hospitalization for management of altered mental status in setting of possible Wernicke's from chronic alcohol abuse while state appointed guardianship is for safe discharge planning Diagnoses Alcohol withdrawal delirium F10.931 Acute metabolic encephalopathy G93.41 Rhabdomyolysis M62.82 Fall W19.XXXA Anemia D64.9 Fever R50.9
--- NOTE | 2023-02-15 16:21 | XRR_ITS ---
PROCEDURE INFORMATION: Exam: XR Chest Exam date and time: 02/15/2023 4:33 PM Age: 72 years old Clinical indication: Condition or disease; Lung condition and disease; Pneumonia; Additional info: Pna TECHNIQUE: Imaging protocol: Radiologic exam of the chest. Views: 1 view. COMPARISON: CR (CHEST, ) 02/06/2023 4:53 PM FINDINGS: Lungs: Bilateral lower lobe infiltrates. No consolidation. Pleural spaces: Small pleural effusions Heart/Mediastinum: Unremarkable. No cardiomegaly. Bones/joints: Healed bilateral rib fracture deformities XR/XR chest 1V portable [id number] IMPRESSION: Small bilateral lower lobe infiltrates/effusions. Healed bilateral rib fracture deformities.
[2023-02-15] MEDS: cefTRIAXone 1,000 MG in sodium chloride 0.9% (plus) 50 ML 100 MG IV (19:42)
[2023-02-16 04:00] VITALS: BP 123/87; PULSE 64; RESP 17; TEMP 36.3; O2SAT 95
[2023-02-16] MEDS: folic acid 1 mg Tablet PO (08:35)
[2023-02-16] MEDS: pantoprazole DR 40 mg Tablet PO (08:36)
[2023-02-16] MEDS: multivitamin therapeutic Tablet 1 TAB PO (08:38)
[2023-02-16] MEDS: chlordiazePOXIDE 25 mg Capsule PO (08:39)
[2023-02-16 09:33] LABS: Basophils # 0.1 10^3/uL (0.0-0.1); Basophils % 0.3 %; Eosinophils # 0.2 10^3/uL (0.0-0.8); Eosinophils % 1.2 %; Hematocrit 38.3 % (42.0-52.0); Hemoglobin 11.6 g/dL (11.7-16.6); Lymphocytes # 1.3 10^3/uL (0.8-4.8); Lymphocytes % 8.6 %; Mean Corpuscular HGB Conc 30.3 g/dL (30.0-36.0); Mean Corpuscular Hemoglobin 24.4 pg (28.0-34.0); Mean Corpuscular Volume 80.6 fl (80-94); Mean Platelet Volume 8.9 fL (7.4-10.4); Monocytes % 6.6 %; Neutrophils # 12.36 10^3/uL (1.8-7.7); Neutrophils % 82.9 %; Nucleated Red Blood Cells % 0 %; Platelet Count 724 10^3/cmm (130-400); Red Blood Count 4.75 10^6/uL (4.1-5.3); Red Cell Distribution Width 17.7 % (12.1-15.1); White Blood Count 14.9 10^3/uL (4.0-10.0)
[2023-02-16] MEDS: enoxaparin 40 mg/0.4 mL Syringe SUBCUT (09:43)
[2023-02-16 09:56] LABS: Alanine Aminotransferase 20 U/L (0-41); Albumin Level 3.5 g/dL (3.5-5.2); Alkaline Phosphatase 98 U/L (40-130); Anion Gap 16.1 (5-19); Aspartate Amino Transferase 27 U/L (0-40); Blood Urea Nitrogen 12 mg/dL (8-23); Calcium 9.4 mg/dL (8.5-10.5); Carbon Dioxide 26 mmol/L (22-29); Chloride 100 mmol/L (98-107); Globulin 3.9 g/dL (1.3-4.6); Glucose 130 mg/dL (65-115); Osmolality Calculated 288 mOsm/kg (285-295); Potassium 4.1 mmol/L (3.5-5.1); Sodium 138 mmol/L (136-145); Total Bilirubin 0.2 mg/dL (0.15-1.2); Total Protein 7.4 g/dL (6.6-8.7)
[2023-02-16 11:14] LABS: Folate Level > 20.0 ng/mL (4.5-32.2)
[2023-02-16 11:26] VITALS: BP 134/80; PULSE 86; RESP 18; O2SAT 93
--- NOTE | 2023-02-16 13:13 | CTR_ITS ---
PROCEDURE INFORMATION: Exam: CT Head Without Contrast Exam date and time: 02/16/2023 3:26 PM Age: 72 years old Clinical indication: Altered mental status/memory loss; Additional info: AMS TECHNIQUE: Imaging protocol: Computed tomography of the head without contrast. Radiation optimization: All CT scans at this facility use at least one of these dose optimization techniques: automated exposure control; mA and/or kV adjustment per patient size (includes targeted exams where dose is matched to clinical indication); or iterative reconstruction. REPORTING DATA: Count of CT and Cardiac NM exams in prior 12 months: This patient has received 12 known CTs and 0 known cardiac nuclear medicine studies in the 12 months prior to the current study. COMPARISON: CT head wo con* [id number] 02/11/2023 7:02 PM, 02/02/2023, 01/31/2023 RADIATION DOSE METRICS: Total DLP (mGy-cm): 1269.58 FINDINGS: Brain: There is volume loss. There is white matter lucency consistent with chronic microvascular disease. No evidence of acute infarct. No hemorrhage or extra-axial collection. No mass. Cerebral ventricles: There is ventricular enlargement which is stable compared most recent prior scans. Earliest scan available dated 07/21/2019. Increase in ventricular size commensurate with increase in prominence of sulci. Paranasal sinuses: Mucosal thickening. No fluid levels. Mastoid air cells: Visualized mastoid air cells are well aerated. Bones/joints: Unremarkable. No acute fracture. Soft tissues: Unremarkable. CT/CT head wo con* [id number] IMPRESSION: 1. Volume loss and chronic microvascular disease. 2. Ventricular prominence likely secondary to volume loss. This is stable compared with prior scans. 3. No acute intracranial lesion or injury
--- NOTE | 2023-02-16 15:53 | P.PN_ITS ---
Subjective Subjective: Today morning patient seen sitting up in chair. Patient is slow to respond, looks weak, having drooling but awake and alert to self, being in the hospital and able to have conversation though slow to respond. Has remained hemodynamically stable. Tmax in last 24 hours 100 Fahrenheit. Nursing staff concerned about patient aspirating while taking medications or while trying to eat. Sutures from the left eyebrow removed yesterday. Patient found to have a new rash in the back. Vitals/I&O/Wt Last Vital Signs Temp 97.4 F L 02/16/23 04:00 Pulse 86 02/16/23 11:26 Resp 18 02/16/23 11:26 BP 134/80 02/16/23 11:26 Pulse Ox 93 02/16/23 11:26 O2 Del Method Room Air 02/16/23 11:26 02/16/23 02/16/23 02/16/23 06:59 14:59 22:59 Intake Total 180 / 290 170 / 170 Balance 180 / 290 170 / 170 Weight last 48 hrs Weight 81.102 kg Weight 81.284 kg Physical Exam Const: COMMON NORMALS: negative for patient oriented x3 GENERAL APPEARANCE: cooperative and well hydrated ORIENTATION/CONSCIOUSNESS: Yes awake, Yes oriented to person and Yes confused; not oriented to place and not oriented to time HENMT: COMMON NORMALS: normocephalic and atraumatic HEAD & SCALP: normocephalic and atraumatic OTHER: Sutures from the left eyebrow removed on 02/15 Resp: COMMON NORMALS: normal respiratory effort, No retractions, No use of accessory muscles and clear to auscultation bilaterally EFFORT & INSPECTION: Yes symmetric chest movement AUSCULTATION: clear to auscultation bilaterally Cardio: COMMON NORMALS: regular rate, regular rhythm, S1 normal heart sound present, S2 normal heart sound present, No gallops present (Cardio), No murmurs present (Cardio), No rub (Cardio) and Peripheral pulses 2+ throughout RATE: regular rate RHYTHM: regular rhythm HEART SOUNDS: S1 normal heart sound present and S2 normal heart sound present PERIPHERAL PULSES: Peripheral pulses 2+ throughout GI: COMMON NORMALS: Normal to inspection, nondistended, normoactive bowel sounds present, Soft to palpation, non-tender, No hepatosplenomegaly present and no masses AUSCULTATION: Yes normoactive bowel sounds PALPATION: Yes Soft to palpation and Yes No hepatosplenomegaly present RECTAL EXAM: Yes deferred Extremity: COMMON NORMALS: no clubbing, cyanosis or edema and no pedal edema Neuro: COMMON NORMALS: negative for patient oriented x3 SENSORIUM/ORIEN TATION: Yes oriented to person, No oriented to place and No oriented to time Urinary Catheter Management: Parisi: Cath Placed During This Visit: yes, but has since been removed by the nurse Reason for Continuing Indwelling Catheter: Acute Urinary Retention or Obstruction Urinary Catheter Date of Insertion: 02/12/23 Urinary Catheter Time of Insertion: 00:20 Date Urinary Catheter Removed: 02/15/23 Time Urinary Catheter Discontinued: 09:53 Data 02/16/23 09:23 02/16/23 09:23 Micro: Microbiology 02/15/23 09:44 Urine Culture - Preliminary Urine,Clean Catch Yeast species A&P Assessment and plan (1) Alcohol withdrawal delirium: Patient presents with acute alcohol withdrawal, and acute encephalopathy. With high concerns for Warnicke's encephalopathy. CT head showing concerns for possible NPH with ventriculomegaly. Wean Librium further 25 mg daily. Continue with IM thiamine. Appreciate therapy consultation, he is refusing to participate in therapy attempted to call his son [place] [phone] to discuss dispotion planning, however have got voicemail X 2 . Patient insists on going to home, however not safe for discharge in his current disoriented state. (2) Acute metabolic encephalopathy: Improved But still has episodes of confusion most likely in setting of chronic alcohol abuse leading to Warnicke's (3) Rhabdomyolysis: Resolved. (4) Fall: Patient has had multiple falls. Most likely in setting of chronic alcohol abuse and Warnicke's. Appreciate PT evaluation. (5) Anemia: Hemoglobin stable. (6) Fever: Mild leukocytosis. Fever 100 Fahrenheit today prior to that, 101.6F on 02/05, previously one time fever on 02/02 100F. For now empirically start on IV ceftriaxone. Blood cultures if temperature more than 101.4 Fahrenheit. Check urinalysis, portable chest x-ray, procalcitonin. Plan Left upper eyelid contusion: Sutures present. Day 13. Will remove. Plan for the day: Persistent leukocytosis with 1 episode of fever. Continue with IV ceftriaxone. Check urinalysis. Start on IV fluconazole for yeast in urine culture. Parisi removed yesterday. For altered mental status we will repeat ammonia levels, CPK and CT head. Keep NPO. Speech evaluation before advancing diet. Concerns for aspiration. Wean Librium to 25 mg daily. Discharge planning: Patient seen by psych team as well. Patient deemed not safe to be able to make his own medical decisions. Unsafe to take care of himself. Guardianship is being pursued. Eventual plan to discharge to SNF with level 2 once guardianship has been pursued. Attestations Medical Necessity Statement*: Patient for management of persistent leukocytosis with concerns for UTI in a patient with Warnicke's encephalopathy in setting of alcohol abuse while guardianship is pursued for safe discharge planning Diagnoses Alcohol withdrawal delirium F10.931 Acute metabolic encephalopathy G93.41 Rhabdomyolysis M62.82 Fall W19.XXXA Anemia D64.9 Fever R50.9
[2023-02-16 16:00] VITALS: BP 115/81; PULSE 96; RESP 16; TEMP 36.6; O2SAT 94
[2023-02-16 16:53] LABS: Ammonia 60 umol/L (16-60); Creatine Phosphokinase 125 U/L (39-308)
[2023-02-16 17:04] LABS: RMSF IGG NOT DETECTED; RMSF IGM NOT DETECTED
[2023-02-16] MEDS: cefTRIAXone 1,000 MG in sodium chloride 0.9% (plus) 50 ML 100 MG IV (18:37)
[2023-02-16 19:53] VITALS: BP 133/83; PULSE 94; RESP 16; TEMP 36.6; O2SAT 95
[2023-02-16 21:35] LABS: E. Chaffeensis AB IGG <1:64; E. Chaffeensis AB IGM <1:20
[2023-02-16 23:21] VITALS: BP 139/89; PULSE 94; RESP 16; TEMP 36.6; O2SAT 93
[2023-02-17 04:00] VITALS: BP 146/93; PULSE 87; RESP 15; TEMP 36.4; O2SAT 98
[2023-02-17 08:04] VITALS: BP 146/89; PULSE 87; RESP 18; TEMP 36.5; O2SAT 94
--- NOTE | 2023-02-17 08:26 | PC.SOCIAL ---
IMM Update pg 2 of IMM not updated w/ patient as guardianship is pending @ this time.
[2023-02-17] MEDS: acetaminophen 325 mg Tablet 650 MG PO (09:01)
[2023-02-17] MEDS: enoxaparin 40 mg/0.4 mL Syringe SUBCUT (09:49)
[2023-02-17] MEDS: multivitamin therapeutic Tablet 1 TAB PO (10:00)
[2023-02-17] MEDS: folic acid 1 mg Tablet PO (10:00)
[2023-02-17] MEDS: pantoprazole DR 40 mg Tablet PO (10:00)
[2023-02-17 11:32] LABS: Basophils # 0.1 10^3/uL (0.0-0.1); Basophils % 0.5 %; Eosinophils # 0.2 10^3/uL (0.0-0.8); Eosinophils % 2.2 %; Hematocrit 38.2 % (42.0-52.0); Hemoglobin 11.3 g/dL (11.7-16.6); Mean Corpuscular HGB Conc 29.6 g/dL (30.0-36.0); Mean Corpuscular Hemoglobin 24.1 pg (28.0-34.0); Mean Corpuscular Volume 81.6 fl (80-94); Mean Platelet Volume 9.3 fL (7.4-10.4); Monocytes # 0.8 10^3/uL (0.2-0.9); Monocytes % 7.7 %; Neutrophils # 8.11 10^3/uL (1.8-7.7); Neutrophils % 79.3 %; Nucleated Red Blood Cells % 0 %; Platelet Count 577 10^3/cmm (130-400); Red Blood Count 4.68 10^6/uL (4.1-5.3); Red Cell Distribution Width 17.7 % (12.1-15.1); White Blood Count 10.2 10^3/uL (4.0-10.0)
--- NOTE | 2023-02-17 11:49 | PC.SOCIAL ---
IMM Update pg 2 of IMM not updated @ this time as guardianship is pending on patient.
[2023-02-17 11:53] LABS: Alanine Aminotransferase 19 U/L (0-41); Albumin Level 3.2 g/dL (3.5-5.2); Alkaline Phosphatase 85 U/L (40-130); Anion Gap 16.8 (5-19); Aspartate Amino Transferase 20 U/L (0-40); Blood Urea Nitrogen 11 mg/dL (8-23); Calcium 8.7 mg/dL (8.5-10.5); Carbon Dioxide 25 mmol/L (22-29); Chloride 101 mmol/L (98-107); Globulin 3.7 g/dL (1.3-4.6); Glucose 127 mg/dL (65-115); Osmolality Calculated 289 mOsm/kg (285-295); Potassium 3.8 mmol/L (3.5-5.1); Sodium 139 mmol/L (136-145); Total Bilirubin 0.2 mg/dL (0.15-1.2); Total Protein 6.9 g/dL (6.6-8.7)
[2023-02-17 12:00] VITALS: BP 118/79; PULSE 86; RESP 16; TEMP 36.5; O2SAT 95
--- NOTE | 2023-02-17 14:24 | P.PN_ITS ---
Subjective Subjective: No acute events overnight. Patient continues to remain lethargic and confusion along with forgetfulness with some episodes of clarity when he can talk more currently. Has remained hemodynamically stable and afebrile. Tmax in last 24 hours 98 Fahrenheit. Last fever on 02/15 at 4 PM. Blood work showed resolving leukocytosis with white count down to 10.2, stable hemoglobin and CMP with mild hypokalemia. Patient having poor oral intake as per nursing staff and having multiple episodes of diarrhea. Vitals/I&O/Wt Last Vital Signs Temp 97.7 F 02/17/23 12:00 Pulse 86 02/17/23 12:00 Resp 16 02/17/23 12:00 BP 118/79 02/17/23 12:00 Pulse Ox 95 02/17/23 12:00 O2 Del Method Room Air 02/17/23 12:00 02/16/23 02/17/23 02/17/23 22:59 06:59 14:59 Intake Total 50 / 220 50 / 50 Balance 50 / 220 50 / 50 Weight last 48 hrs Weight 79.832 kg Weight 81.102 kg Physical Exam Const: COMMON NORMALS: negative for patient oriented x3 GENERAL APPEARANCE: cooperative and well hydrated ORIENTATION/CONSCIOUSNESS: Yes awake, Yes oriented to person and Yes confused; not oriented to place and not oriented to time HENMT: COMMON NORMALS: normocephalic and atraumatic HEAD & SCALP: normocephalic and atraumatic OTHER: Sutures from the left eyebrow removed on 02/15 Resp: COMMON NORMALS: normal respiratory effort, No retractions, No use of accessory muscles and clear to auscultation bilaterally EFFORT & INSPECTION: Yes symmetric chest movement AUSCULTATION: clear to auscultation bilaterally Cardio: COMMON NORMALS: regular rate, regular rhythm, S1 normal heart sound present, S2 normal heart sound present, No gallops present (Cardio), No murmurs present (Cardio), No rub (Cardio) and Peripheral pulses 2+ throughout RATE: regular rate RHYTHM: regular rhythm HEART SOUNDS: S1 normal heart sound present and S2 normal heart sound present PERIPHERAL PULSES: Peripheral pulses 2+ throughout GI: COMMON NORMALS: Normal to inspection, nondistended, normoactive bowel sounds present, Soft to palpation, non-tender, No hepatosplenomegaly present and no masses AUSCULTATION: Yes normoactive bowel sounds PALPATION: Yes Soft to palpation and Yes No hepatosplenomegaly present RECTAL EXAM: Yes deferred Extremity: COMMON NORMALS: no clubbing, cyanosis or edema and no pedal edema Neuro: COMMON NORMALS: negative for patient oriented x3 SE NSORIUM/ORIENTATION: Yes oriented to person, No oriented to place and No oriented to time Urinary Catheter Management: Parisi: Cath Placed During This Visit: yes, but has since been removed by the nurse Reason for Continuing Indwelling Catheter: Acute Urinary Retention or Obstruction Urinary Catheter Date of Insertion: 02/12/23 Urinary Catheter Time of Insertion: 00:20 Date Urinary Catheter Removed: 02/15/23 Time Urinary Catheter Discontinued: 09:53 Data 02/17/23 11:24 02/17/23 11:24 Micro: Microbiology 02/15/23 09:44 Urine Culture - Preliminary Urine,Clean Catch Yeast species A&P Assessment and plan (1) Fever: Possibly secondary to pneumonia. Chest x-ray showing bilateral left lower lobe infiltrates. UA negative for UTI. Leukocytosis resolving. Unable to collect sputum culture. (2) Alcohol withdrawal delirium: Patient presents with acute alcohol withdrawal, and acute encephalopathy. With high concerns for Warnicke's encephalopathy. CT head showing concerns for possible NPH with ventriculomegaly. Wean Librium further 25 mg daily. Continue with IM thiamine. Appreciate therapy consultation, he is refusing to participate in therapy attempted to call his son [place] [phone] to discuss dispotion planning, however have got voicemail X 2 . Patient insists on going to home, however not safe for discharge in his current disoriented state. (3) Acute metabolic encephalopathy: At baseline with episodes of confusion, agitation with very few occasion of clarity. Ammonia levels normal. CT head negative for acute abnormality but showing biventricular dilatation. (4) Rhabdomyolysis: Resolved. (5) Fall: Patient has had multiple falls. Most likely in setting of chronic alcohol abuse and Warnicke's. Appreciate PT evaluation. (6) Anemia: Hemoglobin stable. (7) Pneumonia: Plan Left upper eyelid contusion: Sutures present. Day 13. Will remove. Plan for the day: Continue with IV ceftriaxone for overall 5-day course along with IV fluconazole for 10-day course. Monitor CBC and CMP daily. Check stool for C. difficile. Diet changed as per speech evaluation to dysphagia level 5. Stop Librium. Care discussed in detail with patient's [id number] over the phone. All the questions were answered. Discharge planning: Patient seen by psych team as well. Patient deemed not safe to be able to make his own medical decisions. Unsafe to take care of himself. Guardianship is being pursued. Eventual plan to discharge to SNF with level 2 once guardianship has been pursued. Attestations Medical Necessity Statement*: Requires further hospitalization for management of pneumonia in a patient was admitted for alcohol induced delirium while state appointed guardianship is awaited for safe discharge planning. Diagnoses Fever R50.9 Alcohol withdrawal delirium F10.931 Acute metabolic encephalopathy G93.41 Rhabdomyolysis M62.82 Fall W19.XXXA Anemia D64.9 Pneumonia J18.9
[2023-02-17 15:03] VITALS: BP 134/86; PULSE 101; RESP 18; TEMP 36.9; O2SAT 92
[2023-02-17] MEDS: cefTRIAXone 1,000 MG in sodium chloride 0.9% (plus) 50 ML 100 MG IV (18:02)
[2023-02-17 19:34] VITALS: BP 130/72; PULSE 96; RESP 18; TEMP 36.8; O2SAT 94
[2023-02-17 23:37] VITALS: BP 136/72; PULSE 92; RESP 18; TEMP 36.9; O2SAT 96
[2023-02-18 03:17] VITALS: BP 130/68; PULSE 78; RESP 16; TEMP 36.7; O2SAT 94
[2023-02-18 08:00] VITALS: BP 154/93; PULSE 104; RESP 16; TEMP 36.4; O2SAT 95
--- NOTE | 2023-02-18 08:29 | PC.NURSE ---
During morning medication administration this nurse attempted to get this patient to take a sip of water to take his morning medication. The patient is unable to follow commands and would not take his morning medication.
[2023-02-18 08:31] LABS: Glucose Point of Care 86 mg/dL (70-110)
[2023-02-18] MEDS: enoxaparin 40 mg/0.4 mL Syringe SUBCUT (10:30)
[2023-02-18 10:46] LABS: Basophils # 0.1 10^3/uL (0.0-0.1); Basophils % 0.5 %; Eosinophils # 0.1 10^3/uL (0.0-0.8); Eosinophils % 0.8 %; Hematocrit 41.4 % (42.0-52.0); Hemoglobin 12.3 g/dL (11.7-16.6); Lymphocytes # 1.5 10^3/uL (0.8-4.8); Mean Corpuscular HGB Conc 29.7 g/dL (30.0-36.0); Mean Corpuscular Hemoglobin 23.9 pg (28.0-34.0); Mean Corpuscular Volume 80.4 fl (80-94); Mean Platelet Volume 8.9 fL (7.4-10.4); Monocytes # 1.1 10^3/uL (0.2-0.9); Monocytes % 7.1 %; Neutrophils # 12.05 10^3/uL (1.8-7.7); Neutrophils % 81.3 %; Nucleated Red Blood Cells % 0 %; Platelet Count 775 10^3/cmm (130-400); Red Blood Count 5.15 10^6/uL (4.1-5.3); Red Cell Distribution Width 17.7 % (12.1-15.1); White Blood Count 14.8 10^3/uL (4.0-10.0)
[2023-02-18 11:10] LABS: Alanine Aminotransferase 21 U/L (0-41); Albumin Level 3.5 g/dL (3.5-5.2); Alkaline Phosphatase 98 U/L (40-130); Anion Gap 18.3 (5-19); Aspartate Amino Transferase 17 U/L (0-40); Blood Urea Nitrogen 12 mg/dL (8-23); Calcium 9.2 mg/dL (8.5-10.5); Carbon Dioxide 24 mmol/L (22-29); Chloride 102 mmol/L (98-107); Creatinine Clr Calc Pharmacy 77.6056; Globulin 4.3 g/dL (1.3-4.6); Glucose 104 mg/dL (65-115); Osmolality Calculated 290 mOsm/kg (285-295); Potassium 4.3 mmol/L (3.5-5.1); Sodium 140 mmol/L (136-145); Total Bilirubin 0.2 mg/dL (0.15-1.2); Total Protein 7.8 g/dL (6.6-8.7)
[2023-02-18] MEDS: fluconazole premix 100 MG in empty flexible container 1 EACH 50 MG IV (11:23)
[2023-02-18 11:33] VITALS: BP 151/95; PULSE 114; RESP 17; TEMP 36.6; O2SAT 97
--- NOTE | 2023-02-18 12:15 | PC.NUTR ---
TPN consult recieved. Recommend TPN beginning @ 23 mls/hr, increasing 20 mls Q8H until goal rate of 83 mls/hr is reached - to include MV 10 mls/day, fat emulsion 20 grams/100 mls and standard electrolytes. Details in RD assessment.
--- NOTE | 2023-02-18 13:51 | XR_ITS ---
WS: [id number] XR chest 1V portable [id number] REASON FOR EXAM: Post PICC placement FINDINGS: Right arm PICC line placement. The tip of the PICC line is in the distal superior vena cava in good p osition for use. Chest is unchanged compared to 02/15/2023 with the exception of the PICC line. XR/XR chest 1V portable [id number] IMPRESSION: Right arm PICC line in the distal superior vena cava in good position.
--- NOTE | 2023-02-18 15:39 | PM.PN ---
Subjective Subjective: No acute events overnight. Patient remains at his baseline mentation of being increasingly confused, slow to respond, being lethargic. On examination sitting up in chair. Awake able to have conversation but not wanting to engage today. On trying to engage further with conversation gets agitated. Otherwise hemodynamically stable. Afebrile last 24 hours. As per nursing staff having real poor oral intake which seems to be a pattern for last 1 week. Vitals/I&O/Wt Last Vital Signs Temp 97.8 F 02/18/23 11:33 Pulse 114 H 02/18/23 11:33 Resp 17 02/18/23 11:33 BP 151/95 02/18/23 11:33 Pulse Ox 97 02/18/23 11:33 O2 Del Method Room Air 02/18/23 11:33 02/18/23 02/18/23 02/18/23 06:59 14:59 22:59 Intake Total 50 / 50 Balance 50 / 50 Weight last 48 hrs Weight 78.834 kg Weight 79.832 kg Physical Exam Const: COMMON NORMALS: negative for patient oriented x3 GENERAL APPEARANCE: cooperative and well hydrated ORIENTATION/CONSCIOUSNESS: Yes awake, Yes oriented to person and Yes confused; not oriented to place and not oriented to time HENMT: COMMON NORMALS: normocephalic and atraumatic HEAD & SCALP: normocephalic and atraumatic OTHER: Sutures from the left eyebrow removed on 02/15 Resp: COMMON NORMALS: normal respiratory effort, No retractions, No use of accessory muscles and clear to auscultation bilaterally EFFORT & INSPECTION: Yes symmetric chest movement AUSCULTATION: clear to auscultation bilaterally Cardio: COMMON NORMALS: regular rate, regular rhythm, S1 normal heart sound present, S2 normal heart sound present, No gallops present (Cardio), No murmurs present (Cardio), No rub (Cardio) and Peripheral pulses 2+ throughout RATE: regular rate RHYTHM: regular rhythm HEART SOUNDS: S1 normal heart sound present and S2 normal heart sound present PERIPHERAL PULSES: Peripheral pulses 2+ throughout GI: COMMON NORMALS: Normal to inspection, nondistended, normoactive bowel sounds present, Soft to palpation, non-tender, No hepatosplenomegaly present and no masses AUSCULTATION: Yes normoactive bowel sounds PALPATION: Yes Soft to palpation and Yes No hepatosplenomegaly present RECTAL EXAM: Yes deferred Extremity: COMMON NORMALS: no clubbing, cyanosis or edema and no pedal edema Neuro: COMMON NORMALS: negative for patient oriented x3 SENSORIUM/ORIENTATION: Yes oriented to person, No oriented to place and No oriented to time Urinary Catheter Management: Parisi: Cath Placed During This Visit: yes, but has since been removed by the nurse Reason for Continuing Indwelling Catheter: Acute Urinary Retention or Obstruction Urinary Catheter Date of Insertion: 02/12/23 Urinary Catheter Time of Insertion: 00:20 Date Urinary Catheter Removed: 02/15/23 Time Urinary Catheter Discontinued: 09:53 Data 02/18/23 10:35 02/18/23 10:35 Micro: Microbiology 02/17/23 09:42 C.difficile Toxin B Gene (PCR) - Final Stool - Stool Aspirate A&P Assessment and plan (1) Fever: Possibly secondary to pneumonia. Chest x-ray showing bilateral left lower lobe infiltrates. UA negative for UTI. Leukocytosis resolving. Unable to collect sputum culture. (2) Alcohol withdrawal delirium: Patient presents with acute alcohol withdrawal, and acute encephalopathy. With high concerns for Warnicke's encephalopathy. CT head showing concerns for possible NPH with ventriculomegaly. Wean Librium further 25 mg daily. Continue with IM thiamine. Appreciate therapy consultation, he is refusing to participate in therapy attempted to call his son [place] [phone] to discuss dispotion planning, however have got voicemail X 2 . Patient insists on going to home, however not safe for discharge in his current disoriented state. (3) Acute metabolic encephalopathy: At baseline with episodes of confusion, agitation with very few occasion of clarity. Ammonia levels normal. CT head negative for acute abnormality but showing biventricular dilatation. (4) Rhabdomyolysis: Resolved. (5) Fall: Patient has had multiple falls. Most likely in setting of chronic alcohol abuse and Warnicke's. Appreciate PT evaluation. (6) Anemia: Hemoglobin stable. (7) Pneumonia: Plan Left upper eyelid contusion: Sutures present. Day 13. Will remove. Plan for the day: Afebrile for last 72 hours. Continues to have leukocytosis. Continue with IV ceftriaxone for 5-day course, IV fluconazole for 7-day course. C. difficile negative. Patient continues to remain lethargic, awake with occasional episodes of confusion. Most likely this is patient's baseline mentation given Warnicke's in setting of chronic alcohol abuse. Patient having poor oral intake. Guardianship awaited. It is highly likely that this is patient's baseline now with episodes of confusion and lethargy though patient does have possibility of infection from possible UTI versus aspiration. 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 Will consult palliative team. Unfortunately patient does not have DPOA paperwork and is awaiting state appointed guardianship. We will continue antifungal and antibiotic for now. If after review completion of antibiotic and antifungal course patient's mentation does not improve will discuss further with palliative team and possible ethics team regarding hospice placement. PICC line placement for now. TPN for nutrition. Dietary consultation. Discharge planning: Patient seen by psych team as well. Patient deemed not safe to be able to make his own medical decisions. Unsafe to take care of himself. Guardianship is being pursued. Eventual plan to discharge to SNF with level 2 once guardianship has been pursued. Attestations Medical Necessity Statement*: Requires further hospitalization while state guardianship is awaited in a patient with severe metabolic encephalopathy from Warnicke's encephalopathy, malnutrition Diagnoses Fever R50.9 Alcohol withdrawal delirium F10.931 Acute metabolic encephalopathy G93.41 Rhabdomyolysis M62.82 Fall W19.XXXA Anemia D64.9 Pneumonia J18.9
[2023-02-18 16:00] VITALS: BP 152/77; PULSE 112; RESP 16; TEMP 36.8; O2SAT 93
--- NOTE | 2023-02-18 16:00 | PC.NURSE ---
Double lumen PICC placed to right brachial vein with difficulty. Informed consent obtained from pt daughter, Mallika, prior to procedure. Pt sitting in chair upon arrival. Assisted back to bed x 2 assist. Pt lethargic. Does not respond to verbal stimuli or answer questions except noncoherent mumbling. Procedure explained to patient. Right arm basilic vein assessed, noted to be 3.5 mm and apparent best choice for placement. Right basilic vein accessed but unable to thread guide wire. Right brachial vein attempted with success. Mid-arm circumference measured 10 cm from right AC 28 cm. Trimmed cath length 36 cm with 1 cm external length noted. CXR confirms tip in distal SVC in good position for use per radiologist. Line secured with stat lock. Insertion site covered with Biopatch and TSM. Report given to bedside nurseKarthik.
[2023-02-18] MEDS: cefTRIAXone 1,000 MG in sodium chloride 0.9% (plus) 50 ML 100 MG IV (18:10)
[2023-02-18 20:00] VITALS: BP 141/83; PULSE 106; RESP 17; TEMP 37.7; O2SAT 93
--- NOTE | 2023-02-18 21:09 | PC.NURSE ---
Patient had dried secretions around and inside of his mouth. This TRAINS SERVICE CONDUCTOR swabbed patients mouth with an oral swab and water and was able to clean most of the dried secretions and dampen mouth. Will continue to pursue oral care frequently throughout the night. Patients head of bed is elevated to prevent any aspiration.
[2023-02-18 22:00] VITALS: PULSE 105
[2023-02-19] VITALS (9 sets, daily range): BP systolic 135–155; BP diastolic 60–84; PULSE 70–110; RESP 15–17; TEMP 36.9–39; O2SAT 91–96
[2023-02-19 06:08] LABS: Basophils # 0.1 10^3/uL (0.0-0.1); Basophils % 0.7 %; Eosinophils # 0.1 10^3/uL (0.0-0.8); Eosinophils % 0.5 %; Hematocrit 43.6 % (42.0-52.0); Hemoglobin 12.5 g/dL (11.7-16.6); Lymphocytes # 1.5 10^3/uL (0.8-4.8); Mean Corpuscular HGB Conc 28.7 g/dL (30.0-36.0); Mean Corpuscular Hemoglobin 24.4 pg (28.0-34.0); Mean Corpuscular Volume 85.2 fl (80-94); Mean Platelet Volume 9.5 fL (7.4-10.4); Monocytes # 1.5 10^3/uL (0.2-0.9); Monocytes % 10.5 %; Neutrophils # 10.73 10^3/uL (1.8-7.7); Neutrophils % 76.9 %; Nucleated Red Blood Cells % 0 %; Platelet Count 556 10^3/cmm (130-400); Red Blood Count 5.12 10^6/uL (4.1-5.3); Red Cell Distribution Width 18.2 % (12.1-15.1)
[2023-02-19 06:33] LABS: Alanine Aminotransferase 19 U/L (0-41); Albumin Level 2.8 g/dL (3.5-5.2); Alkaline Phosphatase 90 U/L (40-130); Blood Urea Nitrogen 13 mg/dL (8-23); Calcium 8.9 mg/dL (8.5-10.5); Carbon Dioxide 21 mmol/L (22-29); Chloride 100 mmol/L (98-107); Globulin 4.3 g/dL (1.3-4.6); Glucose 111 mg/dL (65-115); Osmolality Calculated 283 mOsm/kg (285-295); Sodium 136 mmol/L (136-145); Total Bilirubin 0.2 mg/dL (0.15-1.2); Total Protein 7.1 g/dL (6.6-8.7)
[2023-02-19 06:36] LABS: Anion Gap 19.6 (5-19); Aspartate Amino Transferase 26 U/L (0-40); Potassium 4.6 mmol/L (3.5-5.1)
--- NOTE | 2023-02-19 08:37 | PC.SOCIAL ---
IMM Not Given IMM not updated. Guardianship is pending for pt. Pt is not expected to d/c in the next 24-48hrs.
--- NOTE | 2023-02-19 10:06 | PC.PHAR ---
Patient: Floor: Age: 72 yo Serum creatinine: 1.0 mg/dL Height: 68.9 Inches Weight (kg): 81 IBW (kg): 70.47 Dosing wt(kg): 81 Estimated Creatinine clearance (ml/min): 66.6 CRCL method: Cockcroft and Gault using ibw(default). Drug selected: Vancomycin Loading dose (mg): Vd (liters): 56.7 (factor used: 0.7 L/kg) Brendan (hr-1): 0.060 Half life (hrs): 11.55 CLvanco=?? 3.402 L/hr Recommended dose: 1000 mg Interval: 12 hrs Infusion time (hrs): 1 Predicted peak (mcg/mL): 33.4 Predicted trough (mcg/mL): 17.26 Total body weight is being used for vancomycin dosing. Recommendations: Give Vancomycin 1000 mg q 12 hrs with an expected Cpeak of 33.4 mcg/ml and an expected Ctrough of 17.26 mcg/ml AUC 0-24 /KAIDEN Data: KAIDEN 0.5 mcg/mL:?? AUC/KAIDEN:? 1175.8 KAIDEN 1.0 mcg/mL:?? AUC/KAIDEN:? 587.9 --------- KAIDEN 1.5 mcg/mL:?? AUC/KAIDEN:? 391.9 KAIDEN 2.0 mcg/mL:?? AUC/KAIDEN:? 293.9 Renal dosing of other antibiotics (review renal dosing of other medications and list guidelines here): Thank you for the consult, will continue to follow. Signature: Iker Rossi, EllenD
[2023-02-19] MEDS: enoxaparin 40 mg/0.4 mL Syringe SUBCUT (11:26)
[2023-02-19] MEDS: fluconazole premix 100 MG in empty flexible container 1 EACH 50 MG IV (11:57)
[2023-02-19] MEDS: piperacillin-tazobactam 3.375 GM in sodium chloride 0.9% (plus) 50 ML IV ×2 (11:57→18:06)
[2023-02-19] MEDS: vancomycin 1,000 MG in sodium chloride 0.9% 250 ML 250 MG IV ×2 (12:52→23:03)
--- NOTE | 2023-02-19 15:11 | PM.PN ---
Subjective Subjective: On examination today morning again patient is lethargic, confused, laying in bed. TPN has been started. Tmax today morning 101 Fahrenheit. Otherwise has remained hemodynamically stable and room air. Blood work shows stable leukocytosis, CMP for now. Vitals/I&O/Wt Last Vital Signs Temp 100.7 F H 02/19/23 12:00 Pulse 109 H 02/19/23 14:00 Resp 15 02/19/23 12:00 BP 155/84 02/19/23 12:00 Pulse Ox 95 02/19/23 12:00 O2 Del Method Room Air 02/19/23 03:53 02/19/23 02/19/23 02/19/23 06:59 14:59 22:59 Intake Total 341.867 / 441.867 300 / 300 Balance 341.867 / 441.867 300 / 300 Weight last 48 hrs Weight 81.278 kg Weight 78.834 kg Physical Exam Const: COMMON NORMALS: negative for patient oriented x3 GENERAL APPEARANCE: cooperative and well hydrated ORIENTATION/CONSCIOUSNESS: Yes awake, Yes oriented to person and Yes confused; not oriented to place and not oriented to time HENMT: COMMON NORMALS: normocephalic and atraumatic HEAD & SCALP: normocephalic and atraumatic OTHER: Sutures from the left eyebrow removed on 02/15 Resp: COMMON NORMALS: normal respiratory effort, No retractions, No use of accessory muscles and clear to auscultation bilaterally EFFORT & INSPECTION: Yes symmetric chest movement AUSCULTATION: clear to auscultation bilaterally Cardio: COMMON NORMALS: regular rate, regular rhythm, S1 normal heart sound present, S2 normal heart sound present, No gallops present (Cardio), No murmurs present (Cardio), No rub (Cardio) and Peripheral pulses 2+ throughout RATE: regular rate RHYTHM: regular rhythm HEART SOUNDS: S1 normal heart sound present and S2 normal heart sound present PERIPHERAL PULSES: Peripheral pulses 2+ throughout GI: COMMON NORMALS: Normal to inspection, nondistended, normoactive bowel sounds present, Soft to palpation, non-tender, No hepatosplenomegaly present and no masses AUSCULTATION: Yes normoactive bowel sounds PALPATION: Yes Soft to palpation and Yes No hepatosplenomegaly present RECTAL EXAM: Yes deferred Extremity: COMMON NORMALS: no clubbing, cyanosis or edema and no pedal edema Neuro: COMMON NORMALS: negative for patient oriented x3 SENSORIUM/ORIENTATION: Yes oriented to person, No oriented to place and No oriented to time Urinary Catheter Management: Parisi: Cath Placed During This Visit: yes, but has since been removed by the nurse Reason for Continuing Indwelling Catheter: Acute Urinary Retention or Obstruction Urinary Catheter Date of Insertion: 02/12/23 Urinary Catheter Time of Insertion: 00:20 Date Urinary Catheter Removed: 02/15/23 Time Urinary Catheter Discontinued: 09:53 Data 02/19/23 05:57 02/19/23 05:57 Micro: Microbiology 02/19/23 11:25 Blood Culture - Preliminary Blood SPECIMEN COLLECTED 02/19/23 11:16 Blood Culture - Preliminary Blood SPECIMEN COLLECTED 02/15/23 09:44 Urine Culture - Final Urine,Clean Catch Esperanza albicans A&P Assessment and plan (1) Fever: Possibly secondary to pneumonia. Chest x-ray showing bilateral left lower lobe infiltrates. UA negative for UTI. Leukocytosis resolving. Unable to collect sputum culture. (2) Alcohol withdrawal delirium: Patient presents with acute alcohol withdrawal, and acute encephalopathy. With high concerns for Warnicke's encephalopathy. CT head showing concerns for possible NPH with ventriculomegaly. Wean Librium further 25 mg daily. Continue with IM thiamine. Appreciate therapy consultation, he is refusing to participate in therapy attempted to call his son [place] [phone] to discuss dispotion planning, however have got voicemail X 2 . Patient insists on going to home, however not safe for discharge in his current disoriented state. (3) Acute metabolic encephalopathy: At baseline with episodes of confusion, agitation with very few occasion of clarity. Ammonia levels normal. CT head negative for acute abnormality but showing biventricular dilatation. (4) Rhabdomyolysis: Resolved. (5) Fall: Patient has had multiple falls. Most likely in setting of chronic alcohol abuse and Warnicke's. Appreciate PT evaluation. (6) Anemia: Hemoglobin stable. (7) Pneumonia: Plan Left upper eyelid contusion: Sutures present. Day 13. Will remove. Plan for the day: Patient spiking fevers again. Check blood culture, D-dimer. For now empirically broaden the coverage to vancomycin and Zosyn. UA done negative for UTI, chest x-ray negative for consolidation. Stool studies negative for C. difficile. Continue with IV fluconazole for 7-day course. Care discussed in detail with Dr. Perez from palliative team. Advised to start on high-dose Depakote 500 mg IV every 8 hourly and thiamine 100 mg q. 12 to see if patient's mentation improves. Continue TPN for now. IV Tylenol. Dietitian consult. Discharge planning: Patient seen by psych team as well. Patient deemed not safe to be able to make his own medical decisions. Unsafe to take care of himself. Guardianship is being pursued. Eventual plan to discharge to SNF with level 2 once guardianship has been pursued. Attestations Medical Necessity Statement*: Requires further hospitalization for management of sepsis of unknown origin in a patient who was admitted for Warnicke's encephalopathy secondary to chronic alcohol abuse and states appointed guardianship is awaited. Diagnoses Fever R50.9 Alcohol withdrawal delirium F10.931 Acute metabolic encephalopathy G93.41 Rhabdomyolysis M62.82 Fall W19.XXXA Anemia D64.9 Pneumonia J18.9
[2023-02-19 15:56] LABS: D Dimer 1.59 ug/mIFEU (0-0.59)
[2023-02-19] MEDS: valproic acid inj 500 MG in sodium chloride 0.9% 50 ML 55 MG IV (17:03)
[2023-02-19] MEDS: acetaminophen 1,000 MG/100 ML PIGGYBACK 400 MG IV (21:37)
--- NOTE | 2023-02-19 22:03 | PC.NURSE ---
per previous shift TPN needed increased to 42 ml/hr at 2200. TPN now at 42 ml/hr which is infusion goal for pt
[2023-02-20] VITALS (9 sets, daily range): BP systolic 124–168; BP diastolic 70–89; PULSE 84–111; RESP 16–20; TEMP 36.8–37.9; O2SAT 91–96
[2023-02-20] MEDS: valproic acid inj 500 MG in sodium chloride 0.9% 50 ML 55 MG IV ×3 (00:07→21:00)
[2023-02-20] MEDS: piperacillin-tazobactam 3.375 GM in sodium chloride 0.9% (plus) 50 ML IV ×3 (02:23→21:00)
[2023-02-20 05:12] LABS: Basophils # 0.1 10^3/uL (0.0-0.1); Basophils % 0.6 %; Eosinophils # 0.4 10^3/uL (0.0-0.8); Eosinophils % 3.5 %; Hematocrit 35.3 % (42.0-52.0); Hemoglobin 10.5 g/dL (11.7-16.6); Lymphocytes # 1.3 10^3/uL (0.8-4.8); Lymphocytes % 11.6 %; Mean Corpuscular HGB Conc 29.7 g/dL (30.0-36.0); Mean Corpuscular Volume 80.6 fl (80-94); Mean Platelet Volume 9.2 fL (7.4-10.4); Monocytes # 1.2 10^3/uL (0.2-0.9); Monocytes % 10.7 %; Neutrophils # 8.04 10^3/uL (1.8-7.7); Neutrophils % 73.2 %; Nucleated Red Blood Cells % 0 %; Platelet Count 495 10^3/cmm (130-400); Red Blood Count 4.38 10^6/uL (4.1-5.3); Red Cell Distribution Width 17.5 % (12.1-15.1)
[2023-02-20 05:47] LABS: Alanine Aminotransferase 25 U/L (0-41); Albumin Level 2.9 g/dL (3.5-5.2); Alkaline Phosphatase 86 U/L (40-130); Anion Gap 14.7 (5-19); Aspartate Amino Transferase 31 U/L (0-40); Blood Urea Nitrogen 13 mg/dL (8-23); Calcium 8.7 mg/dL (8.5-10.5); Carbon Dioxide 26 mmol/L (22-29); Chloride 103 mmol/L (98-107); Globulin 3.6 g/dL (1.3-4.6); Glucose 124 mg/dL (65-115); Osmolality Calculated 292 mOsm/kg (285-295); Potassium 3.7 mmol/L (3.5-5.1); Sodium 140 mmol/L (136-145); Total Bilirubin 0.2 mg/dL (0.15-1.2); Total Protein 6.5 g/dL (6.6-8.7)
[2023-02-20] MEDS: enoxaparin 40 mg/0.4 mL Syringe SUBCUT (12:33)
[2023-02-20] MEDS: vancomycin 1,000 MG in sodium chloride 0.9% 250 ML 250 MG IV ×2 (12:33→23:28)
[2023-02-20] MEDS: fluconazole premix 100 MG in empty flexible container 1 EACH 50 MG IV (12:44)
--- NOTE | 2023-02-20 14:13 | PM.PN ---
Subjective Subjective: Patient remains in a stuporous state. He is unable to provide any pertinent history. Patient discussed with medical team. He reportedly has family members that may be visiting today. Medications: Reviewed: Yes Vitals/I&O/Wt Last Vital Signs Temp 99.3 F 02/20/23 07:08 Pulse 85 02/20/23 07:08 Resp 16 02/20/23 07:08 BP 144/83 02/20/23 07:08 Pulse Ox 96 02/20/23 07:08 O2 Del Method Room Air 02/20/23 03:57 02/19/23 02/20/23 02/20/23 22:59 06:59 14:59 Intake Total 968.1 / 1268.1 605 / 1873.1 900.933 / 900.933 Balance 968.1 / 1268.1 605 / 1873.1 900.933 / 900.933 Weight last 48 hrs Weight 81.278 kg Physical Exam Narrative: General: Patient is in a stuporous state. Frail appearing. Head: Atraumatic Neck: No JVD. Cardiovascular: RRR. No gallops. No murmurs. Lungs: Breath sounds are diminished bilateral bases. No accessory muscle use. No wheezing. No crackles. Skin: No jaundice. Abdomen: Hypoactive bowel sounds, abdomen soft. Extremities: No cyanosis or clubbing. Musculoskeletal: Poor muscular development. Neurological: Stuporous. No myoclonus. Urinary Catheter Management: Parisi: Cath Placed During This Visit: yes, but has since been removed by the nurse Reason for Continuing Indwelling Catheter: Acute Urinary Retention or Obstruction Urinary Catheter Date of Insertion: 02/12/23 Urinary Catheter Time of Insertion: 00:20 Date Urinary Catheter Removed: 02/15/23 Time Urinary Catheter Discontinued: 09:53 Data 02/20/23 04:55 02/20/23 04:55 Micro: Microbiology 02/19/23 11:25 Blood Culture - Preliminary Blood NEGATIVE TO DATE 02/19/23 11:16 Blood Culture - Preliminary Blood NEGATIVE TO DATE A&P Assessment and plan (1) Encephalopathy: Patient continues with persistent encephalopathy concerning for Warnicke's encephalopathy Complicated by suspected NPH with ventriculomegaly and acute alcohol withdrawal with severe acute metabolic encephalopathy Prognosis is very poor Continue supportive care Goals of care to be determined Currently lacks a decision maker, family may be possibly visiting today Proceeding with obtaining guardianship otherwise Discontinue TPN (2) Pneumonia: Continue antimicrobials for now (3) Dementia associated with alcoholism: Baseline mental status unclear Unclear if current mentation will be his new baseline Continue supportive care (4) Fall: Fall precautions (5) Anemia: Continue to monitor Plan DVT prophylaxis: Lovenox CODE STATUS: Full code Attestations Medical Necessity Statement*: Patient remains severely encephalopathic requiring ongoing hospitalization for IV antimicrobials and supportive care. Coding Level of Care Code Acute Code for [facility] Diagnoses Encephalopathy G93.40 Pneumonia J18.9 Dementia associated with alcoholism F10.27 Fall W19.XXXA Anemia D64.9
--- NOTE | 2023-02-20 16:01 | USR_ITS ---
PROCEDURE INFORMATION: Exam: US Duplex Lower Extremity Veins, Bilateral Exam date and time: 02/20/2023 11:33 AM Age: 72 years old Clinical indication: Abnormal findings; Abnormal lab test; Elevated d-dimer; Additional info: Dvt TECHNIQUE: Imaging protocol: Real-time duplex ultrasound of the bilateral extremities with 2-D das scale, color Doppler flow and spectral waveform analysis including responses to compression and other maneuvers (when performed) with image documentation. Complete exam focused on the lower extremity veins. COMPARISON: CT chest abd pel w con* 05/31/2022 4:09 PM FINDINGS: Right deep veins: Unremarkable. The common femoral, femoral, proximal profunda femoral and popliteal veins are patent without thrombus. Normal Doppler waveforms. Normal compressibility and/or augmentation response. Right superficial veins: Saphenofemoral junction is patent without thrombus. Left deep veins: Unremarkable. The common femoral, femoral, proximal profunda femoral and popliteal veins are patent without thrombus. Normal Doppler waveforms. Normal compressibility and/or augmentation response. Left superficial veins: Saphenofemoral junction is patent without thrombus. Soft tissues: Unremarkable. US/CV venous duplex [facility] [id number] IMPRESSION: No evidence of deep vein thrombosis.
[2023-02-20 23:08] LABS: Vancomycin Trough 18.4 ug/mL (10-15)
[2023-02-21 03:27] VITALS: BP 110/71; PULSE 89; RESP 18; TEMP 37.1; O2SAT 92
[2023-02-21] MEDS: piperacillin-tazobactam 3.375 GM in sodium chloride 0.9% (plus) 50 ML IV ×3 (04:06→20:34)
[2023-02-21] MEDS: valproic acid inj 500 MG in sodium chloride 0.9% 50 ML 55 MG IV ×3 (04:07→20:33)
[2023-02-21 05:56] VITALS: PULSE 83
--- NOTE | 2023-02-21 07:32 | PC.NURSE ---
PROPERTY VALUER told night nurse and day aid patient needs more zinc cream from pharmacy.
[2023-02-21 08:00] VITALS: BP 153/88; PULSE 87; RESP 18; TEMP 36.5; O2SAT 94
[2023-02-21] MEDS: enoxaparin 40 mg/0.4 mL Syringe SUBCUT (09:19)
[2023-02-21] MEDS: vancomycin 1,000 MG in sodium chloride 0.9% 250 ML 250 MG IV ×2 (11:01→23:51)
[2023-02-21] MEDS: fluconazole premix 100 MG in empty flexible container 1 EACH 50 MG IV (11:02)
[2023-02-21 12:00] VITALS: BP 114/73; PULSE 86; RESP 16; TEMP 37.1; O2SAT 95
--- NOTE | 2023-02-21 13:52 | PC.SOCIAL ---
IMM Not Given IMM not updated. Guardianship is pending for pt. Pt is not expected to d/c in the next 24-48hrs.
--- NOTE | 2023-02-21 14:14 | P.PN_ITS ---
Subjective Subjective: Patient remains in a stuporous state. He will arouse to stimulation and mumble a few words. He is unable to provide any reliable history. Spoke with family contact, Mallika who has been the point person for the other family members that are involved. Gave her an update. She reported that she talk to other family members who stated that he would not want artificial nutrition and PICC line. I inquired about resuscitation status and she was adamant that patient would not want to be resuscitated per his prior expressed wishes to family. She requested to be made DNR. Agreed with code change. She is okay to continue antimicrobials. She reports patient's sister again traveling this morning to come visit him. She is expected to be here sometime on Wednesday. Medications: Reviewed: Yes Medication Review Details: Generic Name Dose Route Start Last Admin Trade Name Freq PRN Reason Stop Dose Admin Acetaminophen 650 mg 02/02/23 10:34 02/11/23 17:17 Acetaminophen 32 5 Mg Tablet PO 650 mg Q6H PRN Administration MILD PAIN Chlordiazepoxide 25 mg 02/12/23 16:15 02/14/23 09:38 Chlordiazepoxide 25 Mg Capsule PO 25 mg Q6H CHRISTOPHER Administration Enoxaparin Sodium 40 mg 02/02/23 10:34 02/14/23 09:40 Enoxaparin 40 Mg /0.4 Ml Syringe SUBCUT 40 mg Q24H CHRISTOPHER Administration Folic Acid 1 mg 02/02/23 10:34 02/14/23 09:38 Folic Acid 1 Mg Tablet PO 1 mg DAILY CHRISTOPHER Administration Lanolin 1 applic 02/06/23 09:55 02/06/23 10:32 Lanolin Oint 7 G m TOPICAL 1 applic PRN PRN Administration DRYNESS Multivitamins Ther apeutic 1 tab 02/02/23 10:34 02/14/23 09:38 Multivitamin The rapeutic Tablet PO 1 tab DAILY CHRISTOPHER Administration Oxycodone/Acetamin ophen 1 tab 02/11/23 18:32 02/14/23 09:38 Oxycodone-Apap 5 -325 Mg Tablet PO 1 tab Q4H PRN Administration SEVERE PAIN Pantoprazole Sodiu m 40 mg 02/05/23 09:00 02/14/23 09:[address] 40 Mg Tablet PO 40 mg DAILY CHRISTOPHER Administration Thiamine HCl 100 mg 02/09/23 13:45 02/14/23 09:39 Thiamine 100 Mg/ Ml Sdv IM 100 mg DAILY CHRISTOPHER Administration Tramadol HCl 50 mg 02/11/23 16:37 02/12/23 10:35 Tramadol 50 Mg T ablet PO 50 mg Q8H PRN Administration MODERATE PAIN Vitals/I&O/Wt Last Vital Signs Temp 98.8 F 02/21/23 12:00 Pulse 86 02/21/23 12:00 Resp 16 02/21/23 12:00 BP 114/73 02/21/23 12:00 Pulse Ox 95 02/21/23 12:00 O2 Del Method Room Air 02/21/23 12:00 02/20/23 02/21/23 02/21/23 22:59 06:59 14:59 Intake Total 350 / 1250.933 410 / 1660.933 405 / 405 Balance 350 / 1250.933 410 / 1660.933 405 / 405 Physical Exam Narrative: General: Patient is in a stuporous state. Frail appearing. Cachectic. Head: Atraumatic Neck: No JVD. Cardiovascular: RRR. No gallops. No murmurs. Lungs: Breath sounds are diminished bilateral bases. Breath sounds are coarse. No accessory muscle use. No wheezing. No crackles. Skin: No jaundice. Abdomen: Hypoactive bowel sounds, abdomen soft. Extremities: No cyanosis or clubbing. Musculoskeletal: Poor muscular development. Neurological: Stuporous. No myoclonus. Urinary Catheter Management: Parisi: Cath Placed During This Visit: yes, but has since been removed by the nurse Reason for Continuing Indwelling Catheter: Acute Urinary Retention or Obstruction Urinary Catheter Date of Insertion: 02/12/23 Urinary Catheter Time of Insertion: 00:20 Date Urinary Catheter Removed: 02/15/23 Time Urinary Catheter Discontinued: 09:53 Data 02/20/23 04:55 02/20/23 04:55 Micro: Microbiology 02/19/23 11:25 Blood Culture - Preliminary Blood NEGATIVE TO DATE 02/19/23 11:16 Blood Culture - Preliminary Blood NEGATIVE TO DATE A&P Assessment and plan (1) Encephalopathy: Patient continues with persistent encephalopathy suspected to be Warnicke's encephalopathy Complicated by suspected NPH with ventriculomegaly and acute alcohol withdrawal with severe acute metabolic encephalopathy Continue broad spectrum abx for PNA Continue antifungal for positive urine culture Prognosis remains very poor Continue supportive care Ongoing goals of care, would likely benefit from hospice Sister is suppose to be present on Wednesday (2) Pneumonia: Continue antimicrobials (3) Dementia associated with alcoholism: Unclear if current mentation will be his new baseline Continue supportive care (4) Fall: Fall precautions (5) Anemia: Continue to monitor Plan DVT prophylaxis: Lovenox CODE STATUS: DNR Attestations Medical Necessity Statement*: Patient remains severely encephalopathic requiring ongoing hospitalization for IV antimicrobials and supportive care. Coding Level of Care Code Acute Code for [facility] Diagnoses Encephalopathy G93.40 Pneumonia J18.9 Dementia associated with alcoholism F10.27 Fall W19.XXXA Anemia D64.9
[2023-02-21 16:00] VITALS: BP 124/83; PULSE 85; RESP 18; TEMP 36.4; O2SAT 94
[2023-02-21 20:00] VITALS: BP 142/81; PULSE 84; RESP 18; TEMP 36.6; O2SAT 93
[2023-02-22] VITALS: BP 128/83; PULSE 82; RESP 19; TEMP 36.7; O2SAT 95
[2023-02-22 04:00] VITALS: BP 145/82; PULSE 75; RESP 18; TEMP 36.4; O2SAT 95
[2023-02-22] MEDS: valproic acid inj 500 MG in sodium chloride 0.9% 50 ML 55 MG IV ×3 (04:05→21:19)
[2023-02-22] MEDS: piperacillin-tazobactam 3.375 GM in sodium chloride 0.9% (plus) 50 ML IV ×3 (04:06→20:55)
[2023-02-22 05:20] LABS: Basophils % 0.4 %; Eosinophils # 0.4 10^3/uL (0.0-0.8); Eosinophils % 4.3 %; Hematocrit 36.6 % (42.0-52.0); Hemoglobin 10.8 g/dL (11.7-16.6); Lymphocytes # 1.2 10^3/uL (0.8-4.8); Lymphocytes % 13.8 %; Mean Corpuscular HGB Conc 29.5 g/dL (30.0-36.0); Mean Corpuscular Hemoglobin 24.1 pg (28.0-34.0); Mean Corpuscular Volume 81.5 fl (80-94); Mean Platelet Volume 9.9 fL (7.4-10.4); Monocytes # 0.5 10^3/uL (0.2-0.9); Monocytes % 6.3 %; Neutrophils # 6.31 10^3/uL (1.8-7.7); Neutrophils % 74.8 %; Nucleated Red Blood Cells % 0 %; Platelet Count 496 10^3/cmm (130-400); Red Blood Count 4.49 10^6/uL (4.1-5.3); Red Cell Distribution Width 17.6 % (12.1-15.1); White Blood Count 8.4 10^3/uL (4.0-10.0)
[2023-02-22 05:39] LABS: Albumin Level 2.8 g/dL (3.5-5.2); Anion Gap 17.4 (5-19); Blood Urea Nitrogen 19 mg/dL (8-23); Carbon Dioxide 24 mmol/L (22-29); Chloride 107 mmol/L (98-107); Glucose 75 mg/dL (65-115); Magnesium 2.4 mg/dL (1.7-2.3); Phosphorus 3.3 mg/dL (2.5-4.5); Potassium 4.4 mmol/L (3.5-5.1); Sodium 144 mmol/L (136-145)
[2023-02-22 05:42] LABS: Anion Gap 17.4 (5-19); Blood Urea Nitrogen 19 mg/dL (8-23); Carbon Dioxide 24 mmol/L (22-29); Chloride 107 mmol/L (98-107); Glucose 74 mg/dL (65-115); Osmolality Calculated 299 mOsm/kg (285-295); Potassium 4.4 mmol/L (3.5-5.1); Sodium 144 mmol/L (136-145)
[2023-02-22 08:00] VITALS: BP 111/74; PULSE 79; RESP 16; TEMP 36.6; O2SAT 94
[2023-02-22] MEDS: enoxaparin 40 mg/0.4 mL Syringe SUBCUT (08:44)
[2023-02-22] MEDS: fluconazole premix 100 MG in empty flexible container 1 EACH 50 MG IV (10:45)
[2023-02-22] MEDS: vancomycin 1,000 MG in sodium chloride 0.9% 250 ML 250 MG IV (10:46)
[2023-02-22 12:00] VITALS: BP 123/80; PULSE 82; RESP 16; TEMP 37; O2SAT 95
[2023-02-22 16:00] VITALS: BP 131/78; PULSE 83; RESP 17; TEMP 37.6; O2SAT 95
--- NOTE | 2023-02-22 19:02 | PM.PN ---
Subjective Subjective: Patient remains in a stuporous state. Very hard to arouse, IV antibiotics has been continued Medications: Reviewed: Yes Medication Review Details: Generic Name Dose Route Start Last Admin Trade Name Lana PRN Reason Stop Dose Admin Acetaminophen 650 mg 02/02/23 10:34 02/17/23 09:01 Acetaminophen 32 5 Mg Tablet PO 650 mg Q6H PRN Administration MILD PAIN Enoxaparin Sodium 40 mg 02/02/23 10:34 02/22/23 08:44 Enoxaparin 40 Mg /0.4 Ml Syringe SUBCUT 40 mg Q24H CHRISTOPHER Administration Folic Acid 1 mg 02/02/23 10:34 02/22/23 07:48 Folic Acid 1 Mg Tablet PO Not Given DAILY CHRISTOPHER Fluconazole 100 mg / N/A 50 mls @ 50 mls/h r 02/18/23 11:00 02/22/23 11:51 IV 02/25/23 10:59 Infused Q24H CHRISTOPHER Infusion Vancomycin HCl 1,0 00 mg/ 250 mls @ 250 mls /hr 02/19/23 11:00 02/22/23 11:51 Sodium Chloride IV Infused Q12H CHRISTOPHER Infusion Protocol As Directed Piperacillin Sod/T azobactam 50 mls @ 12.5 mls /hr 02/19/23 10:30 02/22/23 15:42 Sod 3.375 gm/ So dium Chloride IV Infused Q8H CHRISTOPHER Infusion Protocol Valproic Acid 500 mg/ Sodium 55 mls @ 55 mls/h r 02/19/23 16:00 02/22/23 13:25 Chloride IV Infused Q8H CHRISTOPHER Infusion Lanolin 1 applic 02/06/23 09:55 02/06/23 10:32 Lanolin Oint 7 G m TOPICAL 1 applic PRN PRN Administration DRYNESS Multivitamins Ther apeutic 1 tab 02/02/23 10:34 02/22/23 07:48 Multivitamin The rapeutic Tablet PO Not Given DAILY CHRISTOPHER Pantoprazole Sodiu m 40 mg 02/05/23 09:00 02/22/23 07:[address] 40 Mg Tablet PO Not Given DAILY CHRISTOPHER Thiamine HCl 100 mg 02/19/23 18:00 02/22/23 17:58 Thiamine 100 Mg/ Ml Sdv IVP 100 mg BID CHRISTOPHER Administration Vitals/I&O/Wt Last Vital Signs Temp 99.6 F 02/22/23 16:00 Pulse 83 02/22/23 16:00 Resp 17 02/22/23 16:00 BP 131/78 02/22/23 16:00 Pulse Ox 95 02/22/23 16:00 O2 Del Method Room Air 02/22/23 12:00 02/22/23 02/22/23 02/22/23 06:59 14:59 22:59 Intake Total 355 / 865 405 / 405 50 / 455 Balance 355 / 865 405 / 405 50 / 455 Physical Exam HENMT: COMMON NORMALS: normocephalic and atraumatic HEAD & SCALP: normocephalic and atraumatic Resp: COMMON NORMALS: normal respiratory effort, No retractions, No use of accessory muscles and clear to auscultation bilaterally EFFORT & INSPECTION: Yes symmetric chest movement AUSCULTATION: clear to auscultation bilaterally Cardio: COMMON NORMALS: regular rate, regular rhythm, S1 normal heart sound present, S2 normal heart sound present, No gallops present (Cardio), No murmurs present (Cardio), No rub (Cardio) and Peripheral pulses 2+ throughout RATE: regular rate RHYTHM: regular rhythm HEART SOUNDS: S1 normal heart sound present and S2 normal heart sound present PERIPHERAL PULSES: Peripheral pulses 2+ throughout GI: COMMON NORMALS: Normal to inspection, nondistended, normoactive bowel sounds present, Soft to palpation, non-tender, No hepatosplenomegaly present and no masses AUSCULTATION: Yes normoactive bowel sounds PALPATION: Yes Soft to palpation and Yes No hepatosplenomegaly present RECTAL EXAM: Yes deferred Extremity: COMMON NORMALS: no clubbing, cyanosis or edema and no pedal edema Urinary Catheter Management: Parisi: Cath Placed During This Visit: yes, but has since been removed by the nurse Reason for Continuing Indwelling Catheter: Acute Urinary Retention or Obstruction Urinary Catheter Date of Insertion: 02/12/23 Urinary Catheter Time of Insertion: 00:20 Date Urinary Catheter Removed: 02/15/23 Time Urinary Catheter Discontinued: 09:53 Data 02/22/23 04:32 02/22/23 04:32 A&P Assessment and plan (1) Fever: Possibly secondary to pneumonia. Chest x-ray showing bilateral left lower lobe infiltrates. UA negative for UTI. Leukocytosis resolving. Unable to collect sputum culture. (2) Alcohol withdrawal delirium: Patient presents with acute alcohol withdrawal, and acute encephalopathy. With high concerns for Warnicke's encephalopathy. CT head showing concerns for possible NPH with ventriculomegaly. Wean Librium further 25 mg daily. Continue with Iv thiamine. Appreciate therapy consultation, he is refusing to participate in therapy attempted to call his son [place] [phone] to discuss dispotion planning, however have got voicemail X 2 . Patient insists on going to home, however not safe for discharge in his current disoriented state. (3) Acute metabolic encephalopathy: At baseline with episodes of confusion, agitation with very few occasion of clarity. Ammonia levels normal. CT head negative for acute abnormality but showing biventricular dilatation. (4) Rhabdomyolysis: Resolved. (5) Fall: Patient has had multiple falls. Most likely in setting of chronic alcohol abuse and Warnicke's. Appreciate PT evaluation. (6) Anemia: Hemoglobin stable. (7) Pneumonia: Plan Left upper eyelid contusion: Sutures present. Day 13. Will remove. Discharge planning: Patient seen by psych team as well. Patient deemed not safe to be able to make his own medical decisions. Unsafe to take care of himself. Guardianship is being pursued. Eventual plan to discharge to SNF with level 2 once guardianship has been pursued. Attestations Medical Necessity Statement*: Currently awaiting guardianship Coding Level of Care Code Acute Code for [facility] Diagnoses Fever R50.9 Alcohol withdrawal delirium F10.931 Acute metabolic encephalopathy G93.41 Rhabdomyolysis M62.82 Fall W19.XXXA Anemia D64.9 Pneumonia J18.9
--- NOTE | 2023-02-22 19:20 | PM.MISC ---
Miscellaneous Note Purpose of Documentation: Consult placed for palliative care by Dr. Rangel on WednesdayFebruary 19. Note: Attempted to make arrangements with nursing supervisor travel information center to perform telehealth visit and she was unable to arrange. followed patient via chart documentation and it appeared sister would arrive to help make decisions. I had made recommendations via phone call with Dr. Rangel to: 1) start Valproic Acid 500 mg IV q8h as at times this drug can provide neuronal stablization and improved cognititon. HOwever, after 3 full days, from charting it does not sound as though this has been effective as of yet. 2) utilize increased doses of thiamine for Wernickes. While higher Dosing regimens of thiamine are recommended there has not been substantial evidence that these higher doses are effective. At this point without being able to use video at hospital, I can not assess for nystagmus and I do not see this documented. I do not think he is suffering from Wernickes enephalopathy and for certain not Korsakoff's syndrome since he is not awake. I am more concerned with acute or acute on chronic brain injury or infection since no other infection has been identified as of yet. Despite being on antibioitcs and antifungals he is not improving. I would recommend either a change in regimen or discontinuing and practice watchful waiting for the culprit is be identified. I recommend MRI brain and lumbar puncture either now or off antibiotic/antifungal for 48 hours. If sister is able to speak on Canelo's behalf as to what he would want in this situation, placing patient on hospice benefit or following comfort measures only and treating any symptoms is VERY REASONABLE. And if sister does speak for him she could be the health care proxy and sign for him to receive care at [place] without full guardianship. Please do not hesitate to call to assist with family conference or comfort measures or transitioning to hospice benefit. Dr. Abelardo Crane
[2023-02-22 20:00] VITALS: BP 131/82; PULSE 82; RESP 19; TEMP 37; O2SAT 94
[2023-02-22 22:48] LABS: Vancomycin Trough 22.8 ug/mL (10-15)
[2023-02-23] VITALS (7 sets, daily range): BP systolic 122–153; BP diastolic 75–91; PULSE 82–103; RESP 16–20; TEMP 36.7–37.4; O2SAT 90–98
[2023-02-23] MEDS: valproic acid inj 500 MG in sodium chloride 0.9% 50 ML 55 MG IV ×2 (03:40→11:34)
[2023-02-23] MEDS: piperacillin-tazobactam 3.375 GM in sodium chloride 0.9% (plus) 50 ML IV ×2 (03:42→11:33)
[2023-02-23] MEDS: vancomycin 1,000 MG in sodium chloride 0.9% 250 ML 250 MG IV (05:42)
[2023-02-23] MEDS: enoxaparin 40 mg/0.4 mL Syringe SUBCUT (10:03)
[2023-02-23] MEDS: fluconazole premix 100 MG in empty flexible container 1 EACH 50 MG IV (10:08)
--- NOTE | 2023-02-23 19:47 | P.PN_ITS ---
Subjective Subjective: Patient remained in stuporous state. Very hard to arouse, responds only to pain, guardianship appointment was canceled because of his current mental status, family decided to make patient comfort care.Currently patient has been transitioned to comfort care measures only. Medications: Reviewed: Yes Medication Review Details: Generic Name Dose Route Start Last Admin Trade Name Freq PRN Reason Stop Dose Admin Acetaminophen 650 mg 02/02/23 10:34 02/17/23 09:01 Acetaminophen 32 5 Mg Tablet PO 650 mg Q6H PRN Administration MILD PAIN Enoxaparin Sodium 40 mg 02/02/23 10:34 02/22/23 08:44 Enoxaparin 40 Mg /0.4 Ml Syringe SUBCUT 40 mg Q24H CHRISTOPHER Administration Folic Acid 1 mg 02/02/23 10:34 02/22/23 07:48 Folic Acid 1 Mg Tablet PO Not Given DAILY CHRISTOPHER Fluconazole 100 mg / N/A 50 mls @ 50 mls/h r 02/18/23 11:00 02/22/23 11:51 IV 02/25/23 10:59 Infused Q24H CHRISTOPHER Infusion Vancomycin HCl 1,0 00 mg/ 250 mls @ 250 mls /hr 02/19/23 11:00 02/22/23 11:51 Sodium Chloride IV Infused Q12H CHRISTOPHER Infusion Protocol As Directed Piperacillin Sod/T azobactam 50 mls @ 12.5 mls /hr 02/19/23 10:30 02/22/23 15:42 Sod 3.375 gm/ So dium Chloride IV Infused Q8H CHRISTOPHER Infusion Protocol Valproic Acid 500 mg/ Sodium 55 mls @ 55 mls/h r 02/19/23 16:00 02/22/23 13:25 Chloride IV Infused Q8H CHRISTOPHER Infusion Lanolin 1 applic 02/06/23 09:55 02/06/23 10:32 Lanolin Oint 7 G m TOPICAL 1 applic PRN PRN Administration DRYNESS Multivitamins Ther apeutic 1 tab 02/02/23 10:34 02/22/23 07:48 Multivitamin The rapeutic Tablet PO Not Given DAILY CHRISTOPHER Pantoprazole Sodiu m 40 mg 02/05/23 09:00 02/22/23 07:[address] 40 Mg Tablet PO Not Given DAILY CHRISTOPHER Thiamine HCl 100 mg 02/19/23 18:00 02/22/23 17:58 Thiamine 100 Mg/ Ml Sdv IVP 100 mg BID CHRISTOPHER Administration Vitals/I&O/Wt Last Vital Signs Temp 98.7 F 02/23/23 15:16 Pulse 90 02/23/23 15:16 Resp 16 02/23/23 15:16 BP 133/84 02/23/23 15:16 Pulse Ox 93 02/23/23 15:16 O2 Del Method Room Air 02/23/23 15:16 02/23/23 02/23/23 02/23/23 06:59 14:59 22:59 Intake Total 105 / 615 405 / 405 50 / 455 Balance 105 / 615 405 / 405 50 / 455 Physical Exam HENMT: COMMON NORMALS: normocephalic and atraumatic HEAD & SCALP: normocephalic and atraumatic Resp: COMMON NORMALS: normal respiratory effort, No retractions, No use of accessory muscles and clear to auscultation bilaterally EFFORT & INSPECTION: Yes symmetric chest movement AUSCULTATION: clear to auscultation bilaterally Cardio: COMMON NORMALS: regular rate, regular rhythm, S1 normal heart sound present, S2 normal heart sound present, No gallops present (Cardio), No murmurs present (Cardio), No rub (Cardio) and Peripheral pulses 2+ throughout RATE: regular rate RHYTHM: regular rhythm HEART SOUNDS: S1 normal heart sound present and S2 normal heart sound present PERIPHERAL PULSES: Peripheral pulses 2+ throughout GI: COMMON NORMALS: Normal to inspection, nondistended, normoactive bowel sounds present, Soft to palpation, non-tender, No hepatosplenomegaly present and no masses AUSCULTATION: Yes normoactive bowel sounds PALPATION: Yes Soft to palpation and Yes No hepatosplenomegaly present RECTAL EXAM: Yes deferred Extremity: COMMON NORMALS: no clubbing, cyanosis or edema and no pedal edema Urinary Catheter Management: Parisi: Cath Placed During This Visit: yes, but has since been removed by the nurse Reason for Continuing Indwelling Catheter: Acute Urinary Retention or Obstructio n Urinary Catheter Date of Insertion: 02/12/23 Urinary Catheter Time of Insertion: 00:20 Date Urinary Catheter Removed: 02/15/23 Time Urinary Catheter Discontinued: 09:53 Data 02/22/23 04:32 02/22/23 04:32 A&P Assessment and plan (1) Fever: Possibly secondary to pneumonia. Chest x-ray showing bilateral left lower lobe infiltrates. UA negative for UTI. Leukocytosis resolving. Unable to collect sputum culture. (2) Alcohol withdrawal delirium: Patient presents with acute alcohol withdrawal, and acute encephalopathy. With high concerns for Warnicke's encephalopathy. CT head showing concerns for possible NPH with ventriculomegaly. Wean Librium further 25 mg daily. Continue with Iv thiamine. Appreciate therapy consultation, he is refusing to participate in therapy attempted to call his son [place] [phone] to discuss dispotion planning, however have got voicemail X 2 . Patient insists on going to home, however not safe for discharge in his current disoriented state. (3) Acute metabolic encephalopathy: At baseline with episodes of confusion, agitation with very few occasion of clarity. Ammonia levels normal. CT head negative for acute abnormality but showing biventricular dilatation. (4) Rhabdomyolysis: Resolved. (5) Fall: Patient has had multiple falls. Most likely in setting of chronic alcohol abuse and Warnicke's. Appreciate PT evaluation. (6) Anemia: Hemoglobin stable. (7) Pneumonia: (8) Comfort measures only status: Plan Left upper eyelid contusion: Sutures present. Day 13. Will remove. Discharge planning: Patient seen by psych team as well. Patient deemed not safe to be able to make his own medical decisions. Unsafe to take care of himself. Guardianship was being pursued. Currently on comfort care. Attestations Medical Necessity Statement*: In hospital for comfort care measures. Coding Level of Care Code Acute Code for [facility] Diagnoses Fever R50.9 Alcohol withdrawal delirium F10.931 Acute metabolic encephalopathy G93.41 Rhabdomyolysis M62.82 Fall W19.XXXA Anemia D64.9 Pneumonia J18.9 Comfort measures only status Z51.5
[2023-02-24] MEDS: morphine 10 mg/0.5 mL oral liq UD SUBLINGUAL ×5 (02:45→18:39)
[2023-02-24 07:52] VITALS: BP 110/73; PULSE 89; RESP 20; TEMP 37.3; O2SAT 90
--- NOTE | 2023-02-24 19:37 | P.PN_ITS ---
Subjective Subjective: Currently on comfort care Medications: Reviewed: Yes Medication Review Details: Generic Name Dose Route Start Last Admin Trade Name Lana PRN Reason Stop Dose Admin Acetaminophen 650 mg 02/02/23 10:34 02/17/23 09:01 Acetaminophen 32 5 Mg Tablet PO 650 mg Q6H PRN Administration MILD PAIN Enoxaparin Sodium 40 mg 02/02/23 10:34 02/22/23 08:44 Enoxaparin 40 Mg /0.4 Ml Syringe SUBCUT 40 mg Q24H CHRISTOPHER Administration Folic Acid 1 mg 02/02/23 10:34 02/22/23 07:48 Folic Acid 1 Mg Tablet PO Not Given DAILY CHRISTOPHER Fluconazole 100 mg / N/A 50 mls @ 50 mls/h r 02/18/23 11:00 02/22/23 11:51 IV 02/25/23 10:59 Infused Q24H CHRISTOPHER Infusion Vancomycin HCl 1,0 00 mg/ 250 mls @ 250 mls /hr 02/19/23 11:00 02/22/23 11:51 Sodium Chloride IV Infused Q12H CHRISTOPHER Infusion Protocol As Directed Piperacillin Sod/T azobactam 50 mls @ 12.5 mls /hr 02/19/23 10:30 02/22/23 15:42 Sod 3.375 gm/ So dium Chloride IV Infused Q8H CHRISTOPHER Infusion Protocol Valproic Acid 500 mg/ Sodium 55 mls @ 55 mls/h r 02/19/23 16:00 02/22/23 13:25 Chloride IV Infused Q8H CHRISTOPHER Infusion Lanolin 1 applic 02/06/23 09:55 02/06/23 10:32 Lanolin Oint 7 G m TOPICAL 1 applic PRN PRN Administration DRYNESS Multivitamins Ther apeutic 1 tab 02/02/23 10:34 02/22/23 07:48 Multivitamin The rapeutic Tablet PO Not Given DAILY CHRISTOPHER Pantoprazole Sodiu m 40 mg 02/05/23 09:00 02/22/23 07:[address] 40 Mg Tablet PO Not Given DAILY CHRISTOPHER Thiamine HCl 100 mg 02/19/23 18:00 02/22/23 17:58 Thiamine 100 Mg/ Ml Sdv IVP 100 mg BID CHRISTOPHER Administration Vitals/I&O/Wt Last Vital Signs Temp 99.2 F 02/24/23 07:52 Pulse 89 02/24/23 07:52 Resp 20 H 02/24/23 07:52 BP 110/73 02/24/23 07:52 Pulse Ox 90 02/24/23 07:52 O2 Del Method Room Air 02/24/23 07:52 02/24/23 02/24/23 02/24/23 06:59 14:59 22:59 Output Total 200 / 200 300 / 300 Balance -200 / 255 -300 / -300 Physical Exam Narrative: Not needed on comfort care. Urinary Catheter Management: Parisi: Cath Placed During This Visit: yes, but has since been removed by the nurse Reason for Continuing Indwelling Catheter: Hospice/Comfort/Palliative Care Urinary Catheter Date of Insertion: 02/23/23 Urinary Catheter Time of Insertion: 23:52 Date Urinary Catheter Removed: 02/15/23 Time Urinary Catheter Discontinued: 09:53 Data 02/22/23 04:32 02/22/23 04:32 Micro: Microbiology 02/19/23 11:25 Blood Culture - Final Blood NO GROWTH AFTER 5 DAYS 02/19/23 11:16 Blood Culture - Final Blood NO GROWTH AFTER 5 DAYS A&P Assessment and plan (1) Fever: Possibly secondary to pneumonia. Chest x-ray showing bilateral left lower lobe infiltrates. UA negative for UTI. Leukocytosis resolving. Unable to collect sputum culture. (2) Alcohol withdrawal delirium: Patient presents with acute alcohol withdrawal, and acute encephalopathy. With high concerns for Warnicke's encephalopathy. CT head showing concerns for possible NPH with ventriculomegaly. Wean Librium further 25 mg daily. Continue with Iv thiamine. Appreciate therapy consultation, he is refusing to participate in therapy attempted to call his son [place] [phone] to discuss dispotion planning, however have got voicemail X 2 . Patient insists on going to home, however not safe for discharge in his current disoriented state. (3) Acute metabolic encephalopathy: At baseline with episodes of confusion, agitation with very few occasion of clarity. Ammonia levels normal. CT head negative for acute abnormality but showing biventricular dilatation. (4) Rhabdomyolysis: Resolved. (5) Fall: Patient has had multiple falls. Most likely in setting of chronic alcohol abuse and Warnicke's. Appreciate PT evaluation. (6) Anemia: Hemoglobin stable. (7) Pneumonia: (8) Comfort measures only status: Plan Left upper eyelid contusion: Sutures present. Day 13. Will remove. Discharge planning: Patient seen by psych team as well. Patient deemed not safe to be able to make his own medical decisions. Unsafe to take care of himself. Guardianship was being pursued. Currently on comfort care. Attestations Medical Necessity Statement*: In hospital for comfort care measures. Coding Level of Care Code Acute Code for [facility] Fwd Diagnoses Fever R50.9 Alcohol withdrawal delirium F10.931 Acute metabolic encephalopathy G93.41 Rhabdomyolysis M62.82 Fall W19.XXXA Anemia D64.9 Pneumonia J18.9 Comfort measures only status Z51.5
[2023-02-24 20:00] VITALS: BP 111/74; PULSE 103; RESP 23; TEMP 38.7; O2SAT 74
[2023-02-24] MEDS: acetaminophen 650 mg Supp PR (21:07)
[2023-02-24 23:10] VITALS: BP 114/77; PULSE 97; RESP 22; TEMP 38.2; O2SAT 82
[2023-02-25 03:47] VITALS: BP 120/66; PULSE 113; RESP 22; TEMP 39.6; O2SAT 77
[2023-02-25] MEDS: morphine 10 mg/0.5 mL oral liq UD SUBLINGUAL ×2 (04:02→10:25)
[2023-02-25] MEDS: acetaminophen 650 mg Supp PR ×3 (04:02→20:02)
[2023-02-25 07:12] VITALS: BP 114/75; PULSE 103; RESP 16; TEMP 39.2; O2SAT 57
--- NOTE | 2023-02-25 11:23 | PC.SOCIAL ---
IMM Not Given IMM not updated. Guardianship is pending for pt. Pt is not expected to d/c in the next 24-48hrs.
[2023-02-25 12:00] VITALS: BP 120/77; PULSE 110; RESP 17; TEMP 39.5; O2SAT 58
[2023-02-25 16:00] VITALS: BP 113/69; PULSE 109; RESP 18; TEMP 39.4; O2SAT 49
--- NOTE | 2023-02-25 18:01 | PM.PN ---
Subjective Subjective: In hospital for comfort care Medications: Medication Review Details: Generic Name Dose Route Start Last Admin Trade Name Freq PRN Reason Stop Dose Admin Acetaminophen 650 mg 02/02/23 10:34 02/17/23 09:01 Acetaminophen 32 5 Mg Tablet PO 650 mg Q6H PRN Administration MILD PAIN Acetaminophen 650 mg 02/23/23 18:50 02/25/23 13:05 Acetaminophen 65 0 Mg Supp [place] 650 mg Q4H PRN Administration Temperature great er than 100.5 Atropine Sulfate 3 drop 02/23/23 18:50 02/25/23 15:31 Atropine 1% Op S oln 5 Ml Btl SUBLINGUAL 3 drop Q4H PRN Administration Excessive Secreti ons, Rattling Lanolin 1 applic 02/06/23 09:55 02/06/23 10:32 Lanolin Oint 7 G m TOPICAL 1 applic PRN PRN Administration DRYNESS Morphine Sulfate 2 - 10 mg 02/23/23 18:50 02/25/23 10:25 Morphine 10 Mg/0 .5 Ml Oral Liq Ud SUBLINGUAL 4 mg Q2H PRN Administration Moderate To Sever e Pain or SOB Vitals/I&O/Wt Last Vital Signs Temp 102.9 F H 02/25/23 16:00 Pulse 109 H 02/25/23 16:00 Resp 18 02/25/23 16:00 BP 113/69 02/25/23 16:00 Pulse Ox 49 L 02/25/23 16:00 O2 Del Method Room Air 02/25/23 16:00 02/25/23 02/25/23 02/25/23 06:59 14:59 22:59 Intake Total 0 / 0 Output Total 225 / 525 Balance -225 / -525 Physical Exam Narrative: Not needed on comfort care measures. Urinary Catheter Management: Parisi: Cath Placed During This Visit: yes, but has since been removed by the nurse Reason for Continuing Indwelling Catheter: Hospice/Comfort/Palliative Care Urinary Catheter Date of Insertion: 02/23/23 Urinary Catheter Time of Insertion: 23:52 Date Urinary Catheter Removed: 02/15/23 Time Urinary Catheter Discontinued: 09:53 Data 02/22/23 04:32 02/22/23 04:32 A&P Assessment and plan (1) Comfort measures only status: (2) Pneumonia: Pneumonia.? Chest x-ray showing bilateral left lower lobe infiltrates. Leukocytosis resolving. Unable to collect sputum culture. Patient was on zosyn has been discontinued (3) Dementia associated with alcoholism: (4) Anemia: (5) Rhabdomyolysis: Resolved. (6) Acute metabolic encephalopathy: At baseline with episodes of confusion, agitation with very few occasion of clarity. Ammonia levels normal.? CT head negative for acute abnormality but showing biventricular dilatation. (7) Alcohol withdrawal delirium: Patient presents with acute alcohol withdrawal, and acute encephalopathy.? With high concerns for Warnicke's encephalopathy. CT head showing concerns for possible NPH with ventriculomegaly. Wean Librium further 25 mg daily.? Continue with Iv thiamine. (8) Hypertension: (9) Liver cirrhosis: (10) Fever: Fever: Possibly secondary to pneumonia.? Chest x-ray showing bilateral left lower lobe infiltrates. UA negative for UTI. Leukocytosis resolving. Unable to collect sputum culture. Patient was on zosyn has been discontinued Attestations Medical Necessity Statement*: In hospital for comfort care Coding Level of Care Code Acute Code for [facility] Diagnoses Comfort measures only status Z51.5 Pneumonia J18.9 Dementia associated with alcoholism F10.27 Anemia D64.9 Rhabdomyolysis M62.82 Acute metabolic encephalopathy G93.41 Alcohol withdrawal delirium F10.931 Hypertension I10 Liver cirrhosis K74.60 Fever R50.9
[2023-02-25 20:00] VITALS: BP 115/73; PULSE 115; RESP 14; TEMP 39.3; O2SAT 50
[2023-02-26] VITALS: BP 145/79; PULSE 118; RESP 16; TEMP 36.9; O2SAT 62
[2023-02-26 04:00] VITALS: BP 113/72; PULSE 119; RESP 18; TEMP 39; O2SAT 68
[2023-02-26] MEDS: acetaminophen 650 mg Supp PR ×2 (04:28→11:29)
[2023-02-26 08:00] VITALS: BP 110/72; PULSE 120; RESP 16; TEMP 40.3; O2SAT 69
[2023-02-26 12:00] VITALS: BP 109/71; PULSE 122; RESP 22; TEMP 40.3; O2SAT 67
--- NOTE | 2023-02-26 18:02 | PM.PN ---
Subjective Subjective: In hospital for comfort care Medications: Reviewed: Yes Medication Review Details: Generic Name Dose Route Start Last Admin Trade Name Freq PRN Reason Stop Dose Admin Acetaminophen 650 mg 02/02/23 10:34 02/17/23 09:01 Acetaminophen 32 5 Mg Tablet PO 650 mg Q6H PRN Administration MILD PAIN Acetaminophen 650 mg 02/23/23 18:50 02/25/23 13:05 Acetaminophen 65 0 Mg Supp [place] 650 mg Q4H PRN Administration Temperature great er than 100.5 Atropine Sulfate 3 drop 02/23/23 18:50 02/25/23 15:31 Atropine 1% Op S oln 5 Ml Btl SUBLINGUAL 3 drop Q4H PRN Administration Excessive Secreti ons, Rattling Lanolin 1 applic 02/06/23 09:55 02/06/23 10:32 Lanolin Oint 7 G m TOPICAL 1 applic PRN PRN Administration DRYNESS Morphine Sulfate 2 - 10 mg 02/23/23 18:50 02/25/23 10:25 Morphine 10 Mg/0 .5 Ml Oral Liq Ud SUBLINGUAL 4 mg Q2H PRN Administration Moderate To Sever e Pain or SOB Vitals/I&O/Wt Last Vital Signs Temp 104.5 F H 02/26/23 12:00 Pulse 122 H 02/26/23 12:00 Resp 22 H 02/26/23 12:00 BP 109/71 02/26/23 12:00 Pulse Ox 67 L 02/26/23 12:00 O2 Del Method Room Air 02/26/23 08:00 02/26/23 02/26/23 02/26/23 06:59 14:59 22:59 Intake Total 0 / 0 Output Total 50 / 275 250 / 250 Balance -50 / -275 -250 / -250 Physical Exam Narrative: Not needed on comfort care measures. Urinary Catheter Management: Parisi: Cath Placed During This Visit: yes, but has since been removed by the nurse Reason for Continuing Indwelling Catheter: Hospice/Comfort/Palliative Care Urinary Catheter Date of Insertion: 02/23/23 Urinary Catheter Time of Insertion: 23:52 Date Urinary Catheter Removed: 02/15/23 Time Urinary Catheter Discontinued: 09:53 Data 02/22/23 04:32 02/22/23 04:32 A&P Assessment and plan (1) Comfort measures only status: (2) Pneumonia: Pneumonia.? Chest x-ray showing bilateral left lower lobe infiltrates. Leukocytosis resolving. Unable to collect sputum culture. Patient was on zosyn has been discontinued (3) Dementia associated with alcoholism: (4) Anemia: (5) Rhabdomyolysis: Resolved. (6) Acute metabolic encephalopathy: At baseline with episodes of confusion, agitation with very few occasion of clarity. Ammonia levels normal.? CT head negative for acute abnormality but showing biventricular dilatation. (7) Alcohol withdrawal delirium: Patient presents with acute alcohol withdrawal, and acute encephalopathy.? With high concerns for Warnicke's encephalopathy. CT head showing concerns for possible NPH with ventriculomegaly. Wean Librium further 25 mg daily.? Continue with Iv thiamine. (8) Hypertension: (9) Liver cirrhosis: (10) Fever: Fever: Possibly secondary to pneumonia.? Chest x-ray showing bilateral left lower lobe infiltrates. UA negative for UTI. Leukocytosis resolving. Unable to collect sputum culture. Patient was on zosyn has been discontinued Attestations Medical Necessity Statement*: In hospital for comfort care Coding Level of Care Code Acute Code for [facility] Fwd Diagnoses Comfort measures only status Z51.5 Pneumonia J18.9 Dementia associated with alcoholism F10.27 Anemia D64.9 Rhabdomyolysis M62.82 Acute metabolic encephalopathy G93.41 Alcohol withdrawal delirium F10.931 Hypertension I10 Liver cirrhosis K74.60 Fever R50.9
[2023-02-26 20:00] VITALS: BP 97/59; PULSE 133; RESP 42; TEMP 40.1; O2SAT 71
[2023-02-26 21:53] VITALS: RESP 40
[2023-02-26] MEDS: morphine 4 mg/mL SDV 1 mL IVP (21:53)
[2023-02-26] MEDS: LORazepam 2 mg/mL INJ 1 mL IVP (21:54)
[2023-02-26] MEDS: glycopyrrolate 0.2 mg/mL SDV 2 mL IV (21:55)
[2023-02-27] VITALS: BP 84/55; PULSE 132; RESP 38; TEMP 39.8; TEMP 41.3; O2SAT 70
[2023-02-27] MEDS: acetaminophen 650 mg Supp PR (00:54)
[2023-02-27 01:18] VITALS: RESP 38
[2023-02-27] MEDS: morphine 4 mg/mL SDV 1 mL IVP ×2 (01:18→02:13)
[2023-02-27 02:00] VITALS: TEMP 41.2
[2023-02-27 02:13] VITALS: RESP 20
[2023-02-27] MEDS: glycopyrrolate 0.2 mg/mL SDV 2 mL IV (02:13)
--- NOTE | 2023-02-27 02:50 | PC.NURSE ---
Patient's sister came to the nurses' station and stated she thought the patient has . This nurse and FABI Bass Charge listened for an apical pulse. No pulse was declared. Time of was pronounced at 0250. FABI Enamoradoer rn and Dr. Chahal was notified. Family was present at bedside and stated they would contact the rest of the family. MDS and home was contacted by FABI Bass Charge.
--- NOTE | 2023-02-27 03:56 | PC.NURSE ---
Eye drops placed into patient's eye and postmortum care completed. All lines and rey removed. FABI Enamoradomathematics improvement teacher notified.
--- NOTE | 2023-02-27 04:23 | PC.NURSE ---
Patient transferred to the [facility] via stretcher with FABI Enamoradodry dip worker. Still waiting for the call from [facility].
--- NOTE | 2023-02-27 14:51 | P.DES_ITS ---
Discharge Providers DDS Date of Admission: 02/02/23 10:34 Date Summary Completed: 02/27/23 Attending Provider at Admission: Win Chahal MD Attending Provider at Discharge: Rafael Martino MD Primary Care Provider: David Menon MD DS Diagnoses Hospital Diagnoses (1) Comfort measures only status: (2) Pneumonia: (3) Dementia associated with alcoholism: (4) Anemia: (5) Rhabdomyolysis: (6) Acute metabolic encephalopathy: (7) Alcohol withdrawal delirium: (8) Hypertension: (9) Liver cirrhosis: (10) Fever: Reason for Visit Reason for Visit fall Summary Summary Summary: 72-year-old male with past medical history of, hypertension, hepatic encephalopathy, liver cirrhosis, alcohol abuse disorder, Warnicke's Korsakoff syndrome, was brought in initially for the management of Alcohol withdrawal, patient was kept on CIWA protocol was on Librium, IV fluids, thiamine folic acid multivitamin, CT head without contrast x2 was negative for any acute intracranial, during the hospital stay he was also managed for, rhabdomyolysis, fevers, he was empirically on antibiotics blood cultures were negative, x-ray chest was, not showing any infiltrates, consolidation, UA was clean, respiratory viral panel was negative, Pro-Manish was normal, repeat blood culture was negative, antibiotics were discontinued, patient has history of, recurrent fall at home, physical therapy was on board, he was also managed for hyponatremia, initially was on IV fluids but later was discontinued, With improvement in hyponatremia, BMP was monitored, due to fall, he has left, and contusion as well as left upper lid, contusion, given the fact the patient, overall mentation, is poor, and he was having significant, metabolic encephal opathy, with, hallucination as well as, significant confusion, psych was, consulted for possible guardianship, as the patient is not, safe to go home independently, and he was not agreeing to go to nursing, family was also contacted, they wanted hospital to pursue guardianship, guardianship process was initiated, patient also had a court date for guardianship hearing, but later during the hospital stay patient developed pneumonia, fever, he was started on antibiotics again, but given his overall conditions, and noting no significant improvement in the mentation, family decided to make the patient comfort care, patient was made comfort care as per family wishes, he passed on 02/27:23. TOD : 0250. Additional Data Advance directives?: No Discharge Plan Discharge Patient Disposition: Condition: Stable DS Attestations Time Spent in /Discharge Care*: less than 30 min Quality - AMI: AMI present?: No Quality - Stroke: CVA present?: No Symptom Onset Unknown: No Quality - VTE: VTE present?: No Deep Vein Thrombosis/Pulmonary Embolism Present on Admission: No Coding Level of Care Code Acute Code for Chg Fwd Diagnoses Comfort measures only status Z51.5 Pneumonia J18.9 Dementia associated with alcoholism F10.27 Anemia D64.9 Rhabdomyolysis M62.82 Acute metabolic encephalopathy G93.41 Alcohol withdrawal delirium F10.931 Hypertension I10 Liver cirrhosis K74.60 Fever R50.9
== END 2023-02-27 04:20 | disposition expired | DRG 896 ==
LOC: ER 07:52 → ICU 15:44 → MEDSURG 02-04 13:34
PROVIDERS: Emergency Medicine; Internal Medicine; Student in an Organized Health Care Education/Training Program; Admitting Provider Internal Medicine; Emergency Provider Family Medicine; PCP Family Medicine Adult Medicine; Visit Provider Internal Medicine
DX: F10.231 Alcohol dependence with withdrawal delirium (principal); G93.41 Metabolic encephalopathy; J18.9 Pneumonia, unspecified organism; M62.82 Rhabdomyolysis; E87.1 Hypo-osmolality and hyponatremia; N39.0 Urinary tract infection, site not specified; K70.30 Alcoholic cirrhosis of liver without ascites; Z51.5 Encounter for palliative care; F10.27 Alcohol dependence with alcohol-induced persisting dementia; D64.9 Anemia, unspecified; I10 Essential (primary) hypertension; W18.30XA Fall on same level, unspecified, initial encounter; R42 Dizziness and giddiness; Z66 Do not resuscitate; G93.89 Other specified disorders of brain; R13.10 Dysphagia, unspecified; E87.6 Hypokalemia; R51.9 Headache, unspecified; R07.9 Chest pain, unspecified
CPT/HCPCS: 36415; 36416; 36569; 51702; 70450; 71045; 72125; 73120; 73560; 80048; 80053; 80069; 80076; 80202; 80307; 81001; 82140; 82550; 82607; 82746; 82962; 83540; 83550; 83605; 83735; 84145; 84443; 85025; 85378; 85610; 85730; 86618; 86666; 86757; 87040; 87086; 87106; 87486; 87493; 87581; 87633; 87635; 92507; 92523; 92526; 92610; 93005; 93970; 94640; 96372; 96374; 96376; 97110; 97116; 97161; 97167; 97530; 99284; 99285; C9113; J0131; J0696; J1170; J1450; J1650; J1940; J2060; J2270; J2543; J2560; J3370; J3411; J3490; J7030; J7050